=== PATIENT | female | born 1955 | race Caucasian/White ===

== ENCOUNTER → 2017-04-27 11:39 | Outpatient (CLI) | payer MEDICARE, MEDICAID, SELFPAY ==
--- NOTE | 2017-04-27 11:46 | US_ITS ---
STUDY: SUPERFICIAL ULTRASOUND - LEFT LATERAL ANKLE REASON FOR EXAM: Female, 61 years old. Palpable lump TECHNIQUE: A superficial ultrasound was performed with real-time and static purcell-scale imaging. COMPARISON: None. FINDINGS: No soft tissue abnormality was identified. US/Ext Non Vasc Limited/Soft Tiss IMPRESSION: Unremarkable study. Electronically Signed: Bin Daniels MD at 17:06 EST , Service support ,
== END ==
PROVIDERS: Family Provider Family Medicine; PCP Family Medicine; Visit Provider Podiatrist Foot & Ankle Surgery
DX: M67.472 Ganglion, left ankle and foot (principal); M86.8X6 Other osteomyelitis, lower leg
CPT/HCPCS: 76882

== ENCOUNTER → 2017-10-02 17:25 | Outpatient (CLI) | payer MEDICARE, MEDICAID, SELFPAY | PROVIDERS: Family Provider Otolaryngology; Visit Provider Otolaryngology | DX: J01.90 Acute sinusitis, unspecified (principal) | CPT/HCPCS: 87070; 87205 ==

== ENCOUNTER 2017-10-02 22:41 | Emergency (ER) | payer MEDICARE, MEDICAID, SELFPAY ==
[2017-10-02 22:43] VITALS: BP 135/73; PULSE 92; RESP 18; TEMP 36.8; O2SAT 99; BMI 28.8
--- NOTE | 2017-10-03 00:02 | ED.VISSUMM ---
- ER Visit Summary Date of Service: 10/03/17 Chief Complaint: Possible medication reaction History of Present Illness: The patient is a 61 F presenting due to concern for possible medication reaction. Patient reports that she has a underlying history diabetes high cholesterol essential tremor and anxiety. She also has a history of some recent issues with cough and sinus issues. Patient reports that she was seen by her ear nose and throat who called in a medication for her for bronchitis. Patient reports that she started on this this evening, and following administration of that she started to have a feeling of shaking and head pressure. Patient denies that she had any sort of shortness of breath cough tongue or lip swelling. She denies any rashes. Patient states that she is shaking, but has an underlying history of essential tremor. She reports that this is somewhat worse at this point. Review of systems otherwise negative. Physical Examination: Vital signs are within normal limits, patient is afebrile. General: Patient is well-nourished well-developed and in no acute distress. Head: Normocephalic, atraumatic Eyes: Pupils equal round and reactive bilaterally, extra occular motion intact bialterally ENT: Moist mucous membranes, no lip or tongue swelling Neck: Supple, no lymphadenopathy, no JVD, no meningismus CVS: Heart regular rate and rhythm, no murmurs, rubs or gallops, radial pulses 2+ bilaterally Resp: Respirations nondistressed, lung sounds clear bilaterally Abdomen: Soft, nontender, nondistended, no palpable masses, normal bowel sounds Back: Nontender Extremities: Nontender, atraumatic, active full range of motion, no peripheral edema Skin: warm, no rashes, no petechia Neuro: Alert and oriented x 4, CN 2-12 intact, no lateralizing neurological defecits, patient has no tremor at rest but when she attempts to do anything she has an intention tremor. Psyc: Patient is anxious Test Results: None indicated Emergency Department Course and Treatment: Patient presented due to concern for medication reaction. This does not seem consistent with medication reaction. Patient was reassured by this was recommended to continue her current medical treatment, and follow-up with primary care. Disposition: Discharge Impression: 1. Bronchitis This note was generated with [employer] software. It may contain incorrect words, spelling, and punctuation that were not noted in review of the chart prior to signing ED Disposition - Plan for ED Patient: Disposition: Home or Assisted Living Chief Complaint: Allergic Reaction Diagnosis: Bronchitis Instructions: Acute Bronchitis Referrals: Ashli Silva PA [Primary Care Provider] - 1 Week
[2017-10-03 00:21] VITALS: PULSE 78; RESP 16; O2SAT 98
== END 2017-10-03 00:22 | disposition home or self-care (01) ==
PROVIDERS: Emergency Provider Emergency Medicine; Family Provider Physician Assistant; PCP Physician Assistant
DX: J40 Bronchitis, not specified as acute or chronic (principal); E11.9 Type 2 diabetes mellitus without complications; E78.00 Pure hypercholesterolemia, unspecified; F41.9 Anxiety disorder, unspecified; J01.90 Acute sinusitis, unspecified
CPT/HCPCS: 87070; 87205; 99282

== ENCOUNTER 2017-10-24 09:42 | Emergency (ER) | payer MEDICARE, MEDICAID, SELFPAY ==
[2017-10-24 09:43] VITALS: BP 131/82; PULSE 87; RESP 16; TEMP 36.8; O2SAT 97; BMI 28.8
--- NOTE | 2017-10-24 10:07 | CT_ITS ---
STUDY: CT BRAIN WITHOUT CONTRAST REASON FOR EXAM: Female, 61 years old. Paresthesias of the left arm. RADIATION DOSAGE (If Supplied By Facility): CTDIvol = ( 44.99 ) mGy, DLP = ( 745.49 ) mGycm TECHNIQUE: Transaxial CT imaging of the brain was performed without administration of intravenous contrast material. Individualized dose optimization techniques were used for this CT. COMPARISON: None. FINDINGS: Normal soft tissue structures. Normal calvarium. Normal size ventricles and extra-axial spaces for the patient's age. Normal white matter tracts of the cerebral hemispheres. Normal basal ganglia and thalami. Normal brainstem. Normal cerebellum. There is no intracranial hemorrhage. There are no findings of an acute ischemic infarction. Atherosclerotic calcification of the vertebral arteries and cavernous portions of the internal carotid arteries bilaterally. Dense calcification of the cerebral falx. Partial opacification of the left sphenoid sinus. CT/Brain/Head without Contrast IMPRESSION: No acute abnormality is seen. Partial opacification of the left sphenoid sinus. Electronically Signed: Temo Dukes MD at 11:02 EDT Tel [phone], Service support ,
--- NOTE | 2017-10-24 10:08 | EKG12_ITS ---
Test Reason : HEADACHE Blood Pressure : / mmHG Vent. Rate : 082 BPM Atrial Rate : 082 BPM P-R Int : 156 ms QRS Dur : 100 ms QT Int : 392 ms P-R-T Axes : 027 -04 055 degrees QTc Int : 457 ms Normal sinus rhythm Incomplete right bundle branch block Confirmed by KATIA LANZA, FIONA ([id number]), newspaper editor managing DONNA HOSKINS ([id number]) on 10/25/2017 11:55:57 AM Referred By: BARBRA Confirmed By:FIONA MONTALVO MD
[2017-10-24 10:56] LABS: Absolute Lymphocyte Count 1.99 X10^3/ul (0.83-4.51); Absolute Neutrophil Count 3.6 X10^3/uL (2.0-7.7); Basophil# 0.03 X10^3/uL; Basophil% 0.5 % (0-1); Eosinophil# 0.24 X10^3/uL; Eosinophils% 3.7 % (0-5); Hematocrit 36.7 % (37-47); Hemoglobin 11.5 g/dl (12.0-15.0); Lymphocyte # 1.99 X10^3/ul (4.0); Lymphocyte % 30.9 % (19-41); Mean Corp Hgb Conc 31.3 g/gl (32-36); Mean Corpuscular Hgb 29.2 pg (27.0-32.0); Mean Corpuscular Volume 93.1 fL (81-99); Mean Platelet Vol. 10.6 fl (6.2-12.0); Monocyte# 0.53 X10^3/uL; Monocyte% 8.2 % (0-10); Neutrophil # 3.63 X10^3/uL (2.7-7.7); Neutrophil % 56.5 % (47-70); Platelet Count 197 K/mm3 (150-450); RBC Distribution Width CV 14.1 % (11.6-14.6); RBC Distribution Width SD 48.1 fl (35.1-43.9); Red Blood Count 3.94 M/mm3 (4.2-5.4); White Blood Count 6.4 K/mm3 (4.4-11.0)
[2017-10-24 10:57] LABS: POSITIVE COUNT NO; POSITIVE DIFFERENTIAL NO; POSITIVE MORPHOLOGY NO
[2017-10-24 11:05] LABS: Anion Gap 6 (5-15); BUN 13 mg/dL (7-18); BUN/Creat Ratio 10.7 RATIO (10-20); Calcium,Total 8.9 mg/dL (8.5-10.1); Chloride 106 mmol/L (98-107); Creatinine, Serum 1.21 mg/dL (0.55-1.02); EST Glomerular Filtration Rate 48 mL/min (>60); Est Glom Filt Rate - Afr Amer 58 mL/min (>60); Estimated Creatinine Clearance 39.37 ml/min; Glucose 150 mg/dL (74-106); Potassium 3.8 mmol/L (3.5-5.1); Sodium Level 141 mmol/L (136-145)
[2017-10-24] MEDS: 0.9% Normal Saline 1,000 ML 150 ML IV (11:35)
--- NOTE | 2017-10-24 12:26 | ED.VISSUMM ---
- ER Visit Summary Date of Service: 10/24/17 Chief Complaint: [Feeling weird] History of Present Illness: The patient is a 61 F [presents the emergency department with very vague complaints. Patient states that she did not feel well after using her inhaler last night prior to going to bed. Patient states that she has a little bit of a left-sided headache and some pressure in her left ear. Patient states that her left arm this morning when she woke up at 4 AM felt somewhat numb and weird. Patient is not sure if she is having an anxiety attack. Patient states that she gets nervous and then things start to feel weird. Patient has a history of asthma, diabetes, high cholesterol, fibromyalgia, and anxiety. Patient also gives history that she recently received a tablet from her family and she has been playing games on it. At times the tablet will make funny noises and lights will flash and she is not sure if she may have gotten electrocuted by it and that she typically uses her left hand to play on the tablet.] Physical Examination: [HEENT-PERRLA, EOMI. Cranial nerves II through XII grossly intact. TMs clear. Mucous membranes moist. No adenopathy. Cardiovascular-regular rate and rhythm without murmur or ectopy Lungs-clear to auscultation, chest wall stable without crepitus or subcu emphysema Abdomen-normoactive bowel sounds, soft, nontender, no rebound or rigidity, no peritoneal signs. Neuro tgle-yylreh-naas and heel marti testing within normal limits, negative Romberg, negative pronator drift, fundi benign. NIH stroke scale is a 0 Extremities-intact ?4, normal range of motion, normal pulses, atraumatic] Test Results: [EKG obtained on arrival shows a sinus rhythm with ventricular rate of 82 bpm. CBC with differential obtained was unremarkable. Chemistries unremarkable. CT scan of the brain showed nothing acute other than partial opacification of the left sphenoid sinus.] Emergency Department Course and Treatment: [Given the patient is driving I did not give her anything here for anxiety and she actually refused anything for anxiety here. Patient states that she will discuss further with nurse practitioner Jj Sivla.] Treatment Plan: [Patient to follow-up with her care physician]. Patient's paresthesias in the left arm are currently resolved. Disposition: [Discharged home in stable condition.] Impression: [Headache Paresthesias-resolved] This note was generated with [employer] dictation software. It may contain incorrect words, spelling, and punctuation that were not noted in review of the chart prior to signing ED Disposition - Plan for ED Patient: Chief Complaint: Headache Referrals: Ashli Silva PA [Primary Care Provider] -
--- NOTE | 2017-10-24 12:29 | ED.DEP ---
ED Disposition - Plan for ED Patient: Chief Complaint: Headache Instructions: ED Cephalgia Unspecified, ED Paraesthesias Referrals: Ashli Silva PA [Primary Care Provider] - 3-5 Days
[2017-10-24 12:35] VITALS: BP 129/56; PULSE 75; RESP 15; O2SAT 98
== END 2017-10-24 12:37 | disposition home or self-care (01) ==
LOC: ED 10:35
PROVIDERS: Emergency Provider Emergency Medicine; Family Provider Physician Assistant; PCP Physician Assistant
DX: R51 Headache (principal); R20.2 Paresthesia of skin; F41.9 Anxiety disorder, unspecified; E11.9 Type 2 diabetes mellitus without complications; E78.00 Pure hypercholesterolemia, unspecified; J45.909 Unspecified asthma, uncomplicated; M79.7 Fibromyalgia; Z72.0 Tobacco use
CPT/HCPCS: 70450; 80048; 84484; 85025; 93005; 99284; J7030; A4216

== ENCOUNTER → 2018-01-15 13:15 | Outpatient (CLI) | payer MEDICARE, SELFPAY ==
--- NOTE | 2018-01-15 13:18 | CT_ITS ---
STUDY: CT MAXILLOFACIAL SINUSES REASON FOR EXAM: Female, 62 years old. Sinusitis, right-sided sinus surgery 5+ years ago. RADIATION DOSAGE (If Supplied By Facility): CTDIvol = ( 33.45 ) mGy, DLP = ( 797.27 ) mGycm TECHNIQUE: The patient was scanned in a multi detector CT scanner. High resolution axial imaging was performed without the administration of intravenous contrast material. Sagittal and coronal images were reconstructed. Individualized dose optimization techniques were used for this CT. COMPARISON: CT sinus noncontrast 08/07/2013. FINDINGS: There is new near [place] opacification of the posterior left ethmoid and sphenoid sinuses with central hyperattenuation. There are no air-fluid levels. FRONTAL SINUSES: Normal aeration, without mucosal inflammatory disease. ETHMOIDAL SINUSES: Normal aeration, without mucosal inflammatory disease. MAXILLARY SINUSES: Small focal low-attenuation lateral left maxillary sinus 0.4 cm, new since previous examination, possibly a small retention cyst.. Status post right medial antrectomy. SPHENOIDAL SINUSES: Mild mucosal thickening of the right sphenoid sinus which is smaller compared to the left side.. There is patency of the bilateral maxillary infundibuli with normal uncinate processes, ethmoid bullae, and hiatus semilunaris. Small conchae bullosa right middle turbinate with paradoxical curvature of the bilateral middle turbinate. Normal bilateral inferior turbinates. Normal midline nasal septum. There is patency of the bilateral nasal airways. The visualized osseous structures are normal. The visualized bilateral orbital contents are normal. Prominence of tissue along the tongue base left greater than right. There are degenerative changes of the upper cervical spine. The mandible and bilateral temporomandibular joints are intact. The bilateral mastoid air cells are clear. Pneumatization of the right petrous apex without change. Minimal hyperostosis frontal interna without change. CT/Sinus/Facial Bone IMPRESSION: 1. New near upon opacification posterior left ethmoid and left sphenoid sinus with central hyperattenuation likely chronic disease without air-fluid levels. No osseous destruction. 2. Suspect 3. Small left maxillary sinus pseudocyst. 4. Status post right medial antrectomy. 5. Fullness of the tongue base possible lymphoid hyperplasia. Direct visual correlation recommended. Electronically Signed: Nisha Reynaga MD at 3:03 EDT , Service support ,
== END ==
PROVIDERS: Family Provider Physician Assistant; PCP Physician Assistant; Referring Provider Otolaryngology; Visit Provider Otolaryngology
DX: J32.9 Chronic sinusitis, unspecified (principal)
CPT/HCPCS: 70486

== ENCOUNTER → 2018-01-18 10:30 | Outpatient (CLI) | payer MEDICARE, SELFPAY | PROVIDERS: Family Provider Physician Assistant; PCP Physician Assistant; Referring Provider Otolaryngology; Visit Provider Otolaryngology | DX: J32.9 Chronic sinusitis, unspecified (principal) | CPT/HCPCS: 87070; 87205 ==

== ENCOUNTER 2018-02-11 07:11 | Day surgery (SDC) | payer MEDICARE, SELFPAY ==
--- NOTE | 2018-02-05 12:20 | EKG12_ITS ---
Test Reason : PREOP Blood Pressure : / mmHG Vent. Rate : 066 BPM Atrial Rate : 066 BPM P-R Int : 154 ms QRS Dur : 094 ms QT Int : 406 ms P-R-T Axes : 037 022 064 degrees QTc Int : 425 ms Normal sinus rhythm Low voltage QRS Possible Lateral infarct , age undetermined Abnormal ECG Confirmed by KELVIN LANZA, ALFREDO ([id number]), newspaper or periodical editor DONNA HOSKINS ([id number]) on 02/08/2018 2:38:23 PM Referred By: Carlitos Wood Confirmed By:ALFREDO WARREN MD
[2018-02-05 12:36] LABS: Hematocrit 39.5 % (37-47); Hemoglobin 12.6 g/dl (12.0-15.0); Mean Corp Hgb Conc 31.9 g/gl (32-36); Mean Corpuscular Hgb 30.1 pg (27.0-32.0); Mean Corpuscular Volume 94.3 fL (81-99); Mean Platelet Vol. 11.4 fl (6.2-12.0); Platelet Count 212 K/mm3 (150-450); RBC Distribution Width CV 13.9 % (11.6-14.6); RBC Distribution Width SD 46.2 fl (35.1-43.9); Red Blood Count 4.19 M/mm3 (4.2-5.4); White Blood Count 8.7 K/mm3 (4.4-11.0)
[2018-02-05 12:43] LABS: Prothrombin Time (Protime)PT. 13.2 SECONDS (11.7-14.9)
[2018-02-05 12:44] LABS: Partial Thromboplast Time 32.1 Seconds (24.1-36.2); Scan Indicated on CBC? Y/N NO
[2018-02-05 13:09] LABS: AST(SGOT) 16 U/L (15-37); Alanine Aminotransfer ALT/SGPT 22 U/L (13-56); Albumin, Serum 3.7 g/dL (3.2-5.0); Alkaline Phosphatase 66 U/L (45-117); Anion Gap 8 (5-15); BUN 18 mg/dL (7-18); BUN/Creat Ratio 14.9 RATIO (10-20); Bilirubin, Direct 0.09 mg/dL (0.00-0.30); Chloride 107 mmol/L (98-107); Creatinine, Serum 1.21 mg/dL (0.55-1.02); EST Glomerular Filtration Rate 48 mL/min (>60); Est Glom Filt Rate - Afr Amer 58 mL/min (>60); Glucose 89 mg/dL (74-106); Potassium 4.3 mmol/L (3.5-5.1); Protein, Total 7.7 g/dL (6.4-8.2); Sodium Level 143 mmol/L (136-145)
[2018-02-05 13:15] LABS: Hemoglobin A1c 5.9 % (4.2-6.3)
[2018-02-11] VITALS (8 sets, daily range): BP systolic 110–155; BP diastolic 73–84; PULSE 71–78; RESP 16–18; TEMP 36.5–36.9; O2SAT 92–100; BMI 26.6
--- NOTE | 2018-02-11 | ETH_PTH ---
PATIENT: COLE MERCADO LOC: [facility] [place] U#:[id number] AGE/SX: 62/F ROOM: RE02/11/[address]: Dr. Carlitos Wood MD : [id number] BED: DIS: 02/11/2018 SPEC #: [id number] RECD: 02/11/18 13:47 STATUS: CHRISTINE REQ #: [id number] COLIN: 02/11/18 00:[address]: Carlitos Wood DEPT: SURGICAL PATHOLOGY RECD BY: Ian Bell ENTERED: 02/11/18 13:47 SP TYPE: ETH TISS OTHR DR: EDGARDO Chawla Tissues: Ethmoid sinus, NOS Procedures: Decalcification bone/plaque Special Stain Group I Surgery Specimen Level IV GMS Stain (control) HEADER OPERATION: Endoscopic intranasal ethmoid, max, antrostomy, sphenoidectomy PRE-OP DIAGNOSIS: Chronic sinusitis TISSUE SUBMITTED: Left sinus contents MICROSCOPIC DIAGNOSIS Left sinus contents: Fragments of respiratory mucosa with chronic inflammation and bone. Special stain for fungi is negative for organisms; matched control is appropriate. See comment. ARMINDA:sandy 02/15/18 COMMENT Inflammatory cell infiltrates also consists of numerous eosinophils. MICROSCOPIC DESCRIPTION Slides are reviewed. GROSS DESCRIPTION Received in fixative is one container labeled with the patient's name and designated left sinus contents. The specimen consists of multiple fragments of pink hemorrhagic soft tissue mixed with fragments of bone that in aggregate measure 3 x 2.5 x 0.3 cm. The entire specimen is submitted in one cassette after decalcification. / ARMINDA:sandy 02/11/18 TC:3 CPT: 32664, 38396, 81158
[2018-02-11] MEDS: Oxymetazoline 0.05% 1 SPRAY SPRAY.BTL 3 SPRAY NASAL (07:47)
[2018-02-11 07:56] LABS: Bedside Glucose 113 mg/dL (70-110)
[2018-02-11] MEDS: Oxymetazoline 0.05% 1 SPRAY SPRAY.BTL 15 SPRAY (08:48)
--- NOTE | 2018-02-11 09:14 | DCINST_ITS ---
You will use the following diet at home:: Regular Your food should be the consistency of: Regular Discharge Activity: Return to Normal Activity, - - No nose blowing until seen by MD Additional Dressing/Incision Instructions:: Start irrigation on 02/12/18. Irrigate 4x/day with saline. Allergies/Adverse Reactions: Allergies moxifloxacin HCl [From Avelox] Allergy (Verified 02/04/18 15:23) Other Penicillins Allergy (Verified 02/04/18 15:23) Nausea doxycycline Adverse Reaction (Verified 02/04/18 15:23) Nausea prednisone Adverse Reaction (Verified 02/04/18 15:23) Other MAKES ME FEEL WIERD AND i NEVER SHUT UP Medications to take at Discharge RX: Cholecalciferol (Vitamin D3) [Vitamin D3] 1,000 unit PO DAILY 07/31/13 RX: Metformin HCl [Glucophage] 850 mg PO BIDCM 07/31/13 RX: Paroxetine HCl [Paxil] 30 mg PO QHS 07/31/13 RX: Pravastatin [Pravachol] 20 mg PO QHS 07/31/13 Orders to be completed after discharge: 12 Lead EKG [CVS] Time Frame: 02/05/18, Location: None Selected Primary Care Physician: Ashli Silva PA [Primary Care Provider] - Test Results: Test results from this visit will be discussed in further detail at your follow- up appointment, if applicable.
--- NOTE | 2018-02-11 10:30 | OP.PCM_ITS ---
Report of Operation Date of Procedure: 02/11/18 Pre-Operative Diagnosis: left chronic sinusitis Post-Operative Diagnosis: same Surgery/Procedure Performed:: left total ethmoidectomy; left sphenoidectomy; left maxillary antrostomy; use of navigation Description of Surgical Findings:: thick inspissated mucous in the sphenoid and posterior ethmoid Type of Anesthesia:: General Anesthesiologist: Gaudencio Quiroga Specimen's removed: sinus contents Estimated Blood Loss (mL): minimal Description of Procedure: The patient was taken to the OR on 02/11/18. She was placed in the supine position on the OR table. She was given sufficient general endotracheal anesthesia. The head of bed was elevated 30 degrees. The navigation system was applied and registered per protocol and checked for anatomic correctness. A zero degree rigid nasal endoscope was used throughout the entire procedure. 1% lidocaine with epinephrine was injected into the middle turbinate, superior turbinate, uncinate, and ethmoid bulla. After sufficient vasoconstriction, the middle turbinate was medialized with a freer elevator. A ball tipped sinus seeker was inserted into the left maxillary sinus. A back biter was used to create a maxillary antrostomy. The uncinate was taken down using a microdebrider. The ethmoid bulla was opened with a curette. Anterior and posterior ethmoidectomy was carried out using a [place]-Wile forcep and sinus shaver. I then used navigation to verify the front face of the sphenoid. I popped through the front face of the sphenoid with the suction/navigation. I then opened the front face of the sphenoid with a sinus shaver medially. Thick inspissated secretions were removed with suction and [place]-Wile forceps. Inflamed mucosa was removed with forceps as well. Hemostasis was achieved with afrin pledgets. Next, I used some suction cautery for some bleeding in the ethmoid cavity. Meliton was applied to some mucosal oozing which controlled the bleeding quite well. Once hemostasis was achieved the procedure was terminated. She was awoken and brought to the recovery room in stable condition. Blood loss minimal, replacement none. Sponge needle and instrument count were correct at the end of the procedure.
[2018-02-11 11:30] LABS: Bedside Glucose 149 mg/dL (70-110)
== END 2018-02-11 12:30 | disposition home or self-care (01) ==
LOC: SDC 07:11 → AC 07:12
PROVIDERS: Anesthesiology; Family Provider Physician Assistant; PCP Physician Assistant; Referring Provider Otolaryngology; Visit Provider Otolaryngology
PROC: (CPT 31256; principal; 2018-02-11 08:35)
DX: J32.9 Chronic sinusitis, unspecified (principal); F32.9 Major depressive disorder, single episode, unspecified; F41.9 Anxiety disorder, unspecified; E78.00 Pure hypercholesterolemia, unspecified; F17.200 Nicotine dependence, unspecified, uncomplicated; R94.31 Abnormal electrocardiogram [ECG] [EKG]; E11.9 Type 2 diabetes mellitus without complications; R23.3 Spontaneous ecchymoses
CPT/HCPCS: 31256; 31259; 36415; 80048; 80076; 82962; 83036; 85027; 85610; 85730; 88305; 88311; 88312; 93005; J7120; J2405

== ENCOUNTER 2018-03-12 16:10 | Emergency (ER) | payer MEDICARE, SELFPAY ==
[2018-02-11 07:41] VITALS: BMI 26.6
[2018-03-12 16:12] VITALS: BP 117/68; PULSE 79; RESP 16; TEMP 36.6; O2SAT 96; BMI 30.3
--- NOTE | 2018-03-12 17:07 | EKG12_ITS ---
Test Reason : ANXIETY Blood Pressure : / mmHG Vent. Rate : 069 BPM Atrial Rate : 069 BPM P-R Int : 152 ms QRS Dur : 092 ms QT Int : 412 ms P-R-T Axes : 038 024 063 degrees QTc Int : 441 ms Normal sinus rhythm Normal ECG Confirmed by ALFREDO WARREN MD ([id number]), business editor DONNA HOSKINS ([id number]) on 03/15/2018 1:43:17 PM Referred By: SHAHNAZ Confirmed By:ALFREDO WARREN MD
[2018-03-12] MEDS: LORazepam 2 MG/ML Syringe 1 MG IV (17:32)
[2018-03-12 17:50] LABS: Absolute Lymphocyte Count 2.21 X10^3/ul (0.83-4.51); Absolute Neutrophil Count 4.4 X10^3/uL (2.0-7.7); Basophil# 0.05 X10^3/uL; Basophil% 0.7 % (0-1); Eosinophil# 0.32 X10^3/uL; Eosinophils% 4.2 % (0-5); Hematocrit 36.3 % (37-47); Hemoglobin 11.5 g/dl (12.0-15.0); Lymphocyte # 2.21 X10^3/ul (4.0); Lymphocyte % 29.3 % (19-41); Mean Corp Hgb Conc 31.7 g/gl (32-36); Mean Corpuscular Hgb 29.2 pg (27.0-32.0); Mean Corpuscular Volume 92.1 fL (81-99); Mean Platelet Vol. 11.1 fl (6.2-12.0); Monocyte# 0.53 X10^3/uL; Neutrophil # 4.41 X10^3/uL (2.7-7.7); Neutrophil % 58.7 % (47-70); POSITIVE COUNT NO; POSITIVE DIFFERENTIAL NO; POSITIVE MORPHOLOGY NO; Platelet Count 217 K/mm3 (150-450); RBC Distribution Width CV 13.9 % (11.6-14.6); RBC Distribution Width SD 46.6 fl (35.1-43.9); Red Blood Count 3.94 M/mm3 (4.2-5.4); White Blood Count 7.5 K/mm3 (4.4-11.0)
[2018-03-12 18:02] LABS: Anion Gap 9 (5-15); BUN 17 mg/dL (7-18); Calcium,Total 8.6 mg/dL (8.5-10.1); Chloride 109 mmol/L (98-107); Creatinine, Serum 1.21 mg/dL (0.55-1.02); EST Glomerular Filtration Rate 48 mL/min (>60); Est Glom Filt Rate - Afr Amer 58 mL/min (>60); Estimated Creatinine Clearance 33.74 ml/min; Glucose 184 mg/dL (74-106); Potassium 3.9 mmol/L (3.5-5.1); Sodium Level 141 mmol/L (136-145)
--- NOTE | 2018-03-12 19:02 | ED.DCSUM_ITS ---
- ER Visit Summary Date of Service: 03/12/18 Chief Complaint: Anxiety reaction History of Present Illness: The patient is a 62 F presents to the emergency department anxiety. Patient has long-standing history of anxiety. She was on Xanax intermittently for the past 20 years. She states she is never abused it. She has not taken any in over 6 months. She states that she has been increasingly anxious lately. Her physician prescribed her BuSpar. She states she took it twice and felt like it made her feel worse. She describes dizziness, nausea, and lightheadedness. She states it feels like her normal panic attacks but was worsened. She is never taken the medication before. She is not suicidal. She denies any delusions or hallucinations. Physical Examination: Vital signs reviewed General: Well-nourished, well-developed Head: Normocephalic, atraumatic Eyes: Pupils equal and reactive, extraocular muscles intact Neck, supple, no lymphadenopathy Heart: Regular rate and rhythm Respiratory: No distress, clear bilaterally Abdomen: Soft, nontender, nondistended, no peritoneal signs Back: Nontender Extremities: Nontender, no edema, no cords Skin: Normal color no rash Neuro: Alert and oriented, no focal or lateralizing deficits Test Results: [] Emergency Department Course and Treatment: Patient does seem like she is having medication side effect read EKG was obtained which shows sinus rhythm without ac rios ischemia. Patient was kept on a monitor. Screening labs were obtained which are unremarkable. She was given fluids and IV Ativan. On reevaluation she is resting comfortably. At this time, I do feel this is likely secondary to her anxiety and her medication. She will be given a short course of Ativan until she can reestablish with her physician to determine plan of care. She will be discharged home. Treatment Plan: [] Disposition: Discharge Impression: Acute anxiety reaction This note was generated with [employer] dictation software. It may contain incorrect words, spelling, and punctuation that were not noted in review of the chart prior to signing ED Disposition - Plan for ED Patient: Chief Complaint: Anxiety Instructions: ED Panic Attack Prescriptions: Lorazepam [Ativan] 0.5 mg PO TID #10 tab Referrals: Too Jain MD [Primary Care Provider] -
[2018-03-12 19:20] VITALS: BP 109/63; PULSE 68; RESP 16; O2SAT 98
--- OUTSIDE RECORDS SUMMARY | 2018-06-14 05:47 | XMS RPT_ITS ---
:1955 Author Organization OHIP Support Name Relationship Address Phone D Unavailable Unavailable Unavailable BRENNAN RIBEIROIMIE Unavailable [address] + [place] [address] GEMA TITUS Unavailable [address] + [place] [address] D Unavailable Unavailable Unavailable BRENNAN RIBEIROIMIE Unavailable [address] + [place] [address] GEMA TITUS Unavailable [address] + [place] [address] D Unavailable Unavailable Unavailable BRENNAN RIBEIROIMIE Unavailable [address] + [place] [address] GEMA TITUS Unavailable [address] + [place] [address] D Unavailable Unavailable Unavailable GEMA SANDRA Unavailable [address] + [place] [address] GEMA TITUS Unavailable [address] + [place] [address] D Unavailable Unavailable Unavailable BRENNAN RIBEIROIMIE Unavailable [address] + [place] [address] GEMA TITUS Unavailable [address] + [place] [address] D Unavailable Unavailable Unavailable GEMA SANDRA Unavailable [address] + [place] [address] GEMA TITUS Unavailable [address] + [place] [address] D Unavailable Unavailable Unavailable GEMA SANDRA Unavailable [address] + [place] [address] GEMA TITUS Unavailable [address] + [place] [address] D Unavailable Unavailable Unavailable SANDRA RIBEIRO Unavailable [address] + [place] [address] TITUS RIBEIRO Unavailable [address] + [place] [address] D Unavailable Unavailable Unavailable BRENNAN RIBEIROIMIE Unavailable [address] + [place] [address] TITUS RIBEIRO Unavailable [address] + [place] [address] Care Team Providers Name Role Phone TOO AMIN Attending Unavailable TESTRAKE, JACKELINE Attending Unavailable TESTRAKE, JACKELINE Referring Unavailable TESTRAKE, JACKELINE Referring Unavailable SILVAAshli (PA-C) Attending Unavailable TESTRAKE, JACKELINE Attending Unavailable TESTRAKE, JACKELINE Referring Unavailable TESTRAKE, JACKELINE Referring Unavailable TESTRAKE, JACKELINE Referring Unavailable BRENNAN, TOO Ulloa Referring Unavailable BRENNAN, TOO Ulola Referring Unavailable BRENNAN, TOO Ulloa Attending Unavailable TESTRAKE, JACKELINE Referring Unavailable BRENNAN, TOO Ulloa Attending Unavailable SILVAAshli MORALES (PA-C) Attending Unavailable SILVA, Ashli ATKINS (PA-C) Referring Unavailable SILVAAshli (PA-C) Attending Unavailable TESTRAKE, JACKELINE Referring Unavailable SILVAAshli (PA-C) Attending Unavailable SILVAAshli (PA-C) Referring Unavailable TESTRAKE, JACKELINE Attending Unavailable ANTONELLA GRAY (PT) Attending Unavailable SILVAAshli (PA-C) Referring Unavailable BRENNANTOO Referring Unavailable BRENNAN, TOO Ulloa Referring Unavailable TESTRAKE, JACKELINE Attending Unavailable TESTRAKE, JACKELINE Referring Unavailable TESTRAKE, JACKELINE Referring Unavailable TESTRAKE, JACKELINE Referring Unavailable TESTRAKE, JACKELINE Attending Unavailable TESTRAKE, JACKELINE Referring Unavailable TESTRAKE, JACKELINE Referring Unavailable TESTRAKE, JACKELINE Attending Unavailable TESTRAKE, JACKELINE Referring Unavailable TESTRAKE, JACKELINE Attending Unavailable TESTRAKE, JACKELINE Referring Unavailable BRENNAN, TOO Ulloa Attending Unavailable SILVAAshli (PA-C) Referring Unavailable TESTRAKE, JACKELINE Attending Unavailable TESTRAKE, JACKELINE Referring Unavailable TESTRAKE, JACKELINE Referring Unavailable TOO AMIN Referring Unavailable TOO AMIN Referring Unavailable Ashli Silva Primary Care Unavailable Brandi Mercer Attending Unavailable Testisrael, Jackeline Attending Unavailable Testrake, Jackeline Referring Unavailable Rodrigo Danielle Primary Care Unavailable Test, Tam Consulting Unavailable Israel, Carlitos Attending Unavailable Israel, Carlitos Primary Care Unavailable Brandi Whaley Attending Unavailable Ashli Silva Primary Care Unavailable Ashli Silva Primary Care Unavailable Ungur Remus Attending Unavailable Israel, Carlitos Attending Unavailable Israel, Carlitos Referring Unavailable Silva, M Carlitos Primary Care Unavailable Israel, Carlitos Attending Unavailable Israel, Carlitos Referring Unavailable Ricardo M Carlitos Primary Care Unavailable Israel, Carlitos Attending Unavailable Israel, Carlitos Referring Unavailable Ricardo M Carlitos Primary Care Unavailable Vickie, Howells Attending Unavailable Israel, Carlitos Referring Unavailable PROBLEMS PROBLEMS DATE TYPE CONDITION / CODE ATTENDING STATUS SOURCE 03/12/2018 Unknown F41.9 - Anxiety Sylvie, Active [place] disorder, unspecified [facility] / F41.9(ICD-10) Hospital Repository 02/13/2018 Unknown R94.31 - Abnormal Vickie, Trino Active [place] electrocardiogram Community [ECG] [EKG] / Hospital R94.31(ICD-10) Repository 01/09/2018 Active Pain in left ankle and NA Active [facility] of left foot / [facility] M25.572(ICD-10) [place] Repository 01/09/2018 Active Other chronic pain / NA Active [facility] G89.29(ICD-10) [facility] [place] Repository 01/09/2018 Active Pain in right ankle NA Active [facility] and joints of right [facility] foot / M25.571(ICD-10) [place] Repository 12/11/2017 Active Other microscopic NA Active [facility] hematuria / [facility] R31.29(ICD-10) [place] Repository 12/10/2017 Active [place] / NA Active [facility] R23.2(ICD-10) [facility] [place] Repository 12/07/2017 Active Other injury of NA Active [facility] unspecified body [facility] region, initial [place] encounter / Repository T14.8XXA(ICD-10) 12/07/2017 Active Weakness / NA Active [facility] R53.1(ICD-10) [facility] [place] Repository 12/07/2017 Active Cough / R05(ICD-10) NA Active [facility] [place] Repository 12/07/2017 Active Unknown / UNK(Unknown) TOO AMIN Active [facility] J [facility] [place] Repository 11/23/2017 Active Dizziness and NA Active [facility] giddiness / [facility] R42(ICD-10) [place] Repository 09/25/2017 Active Other osteomyelitis, NA Active [place] lower leg / [facility] M86.8X6(ICD-10) [place] Repository 03/02/2015 Active Type 2 diabetes NA Active [facility] mellitus with other [facility] diabetic neurological [place] complication / Repository E11.49(ICD-10) 10/10/2017 Active Cellulitis of NA Active [place] unspecified part of [facility] limb / L03.119(ICD-10) [place] Repository 10/10/2017 Active Other general symptoms NA Active [place] and signs / [facility] R68.89(ICD-10) [place] Repository 09/05/2017 Active 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 [place] (current) drug therapy [facility] / Z79.899(ICD-10) [place] Repository 08/22/2017 Active Other instability, NA Active [facility] left ankle / [facility] M25.372(ICD-10) [place] Repository 08/22/2017 Active Other instability, NA Active [facility] right ankle / [facility] M25.371(ICD-10) [place] Repository 06/19/2017 Active Hallux valgus NA Active [place] (acquired), [facility] unspecified foot / [place] M20.10(ICD-10) Repository 04/27/2017 Unknown M67.472 - Ganglion, Testrake, Active [place] left ankle and foot / [facility] M67.472(ICD-10) Hospital Repository 04/27/2017 Unknown M86.8X6 - Other Testrake, Active [place] osteomyelitis, lower [facility] Community leg / M86.8X6(ICD-10) Hospital Repository 10/07/2012 Active Vitamin D deficiency, NA Active [facility] unspecified / [facility] E55.9(ICD-10) [place] Repository 04/20/2017 Active Other specified NA Active [place] postprocedural states [facility] / Z98.890(ICD-10) [place] Repository 04/20/2017 Active Type 2 diabetes NA Active [place] mellitus with diabetic [facility] autonomic [place] (poly)neuropathy / Repository E11.43(ICD-10) PROCEDURES PROCEDURES No Procedure Records FoundRESULTS RESULTS PROGRESS Observed: 04/01/2018 Status: COMPLETED Source: [place] 2:[address] [facility] REPOSITORY HNO ID: [id number] Author: Ashli Atkins (Emma) Ricardo Service: (none) Author Type: Physician Caretaker Grounds Type: Progress Notes Filed: 04/01/2018 6:50 PM Note Text: 62 year old female with c/o dizzy, shaky, sleepy. Thinks r/t to gabapentin. Missed a dose she thinks on Sunday. Resumed Sunday at noon. Since then feeling this way. Got worse with anxiety over hol. A friend moved in with her, has had a couple strokes and seizures. Feels it has made it very difficult. Dizziness describes as intermittent, head spinny but not sense of motion. Lightheaded. Gabapentin Worked really well for 2 weeks. Controlled anxiety and stopped tremor. Was feeling really well. When she missed waited til next day to restart but started earlier in the day. Adjusted each day since by a few hours earlier. Feels Xanax helped anxiety and didn't have problems. Dr. Amin's notes reviewed from 03/11/18 and ED notes. HISTORIES FAMILY HISTORY Problem Relation Age of Onset - Adopted: Yes - Diabetes Father - Diabetes Maternal Grandmother - Heart Father - Hypertension Father - Lipids Father - None Sister - Diabetes Daughter - Cancer Sister thyroid. PAST MEDICAL HISTORY Diagnosis Date - Adjustment disorder with depressed mood - Kidney stones - Mixed hyperlipidemia Hyperlipidemia - Other and unspecified hyperlipidemia in the past - Type II or unspecified type diabetes mellitus without mention of complication, not stated as uncontrolled PAST SURGICAL HISTORY Procedure Laterality Date - APPENDECTOMY - ESWL kidney stones - PAST SURGICAL HISTORY OF tubal preg - PAST SURGICAL HISTORY OF remote left leg/ ankle with plates and screws - PAST SURGICAL HISTORY OF 11/29/2011 Bunion Removed - REMOVAL GALLBLADDER - REMOVAL OF OVARY(S) bilaterally with hysterectomy - SINUS SURGERY HX 02/11/2018 - TOTAL ABD HYSTERECTOMY+BLAD REPR Social History Marital status: Spouse name: Years of education: 13 Number of children: 1 Occupational History 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 Has taken care of grandson. 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 Disp: 30 capsule Rfl: 0 menthol (BIOFREEZE, MENTHOL,) 4 % gel Apply 1 application to affected area twice daily as needed. Disp: 1 Tube Rfl: 2 PARoxetine (PAXIL) 40 mg tablet Take 1 tablet by mouth once daily. Disp: 30 tablet Rfl: 2 metFORMIN (GLUCOPHAGE) 850 mg tablet take 1 tablet by mouth twice a day with meals Disp: 60 tablet Rfl: 11 pravastatin (PRAVACHOL) 20 mg tablet take 1 tablet by mouth once daily at bedtime Disp: 90 tablet Rfl: 3 ibuprofen (MOTRIN) 600 mg tablet Take 1 tablet by mouth every 8 hours as needed. Disp: 90 tablet Rfl: 1 albuterol HFA (VENTOLIN HFA) 90 mcg/actuation inhaler Inhale 2 Puffs as instructed every 4 hours as needed for Wheezing/Shortness of Breath. Disp: 1 Inhaler Rfl: 5 Cholecalciferol, Vitamin D3, 5,000 unit cap Take 1 capsule by mouth once daily. Disp: 90 capsule Rfl: 3 busPIRone (BUSPAR) 5 mg tablet Take 1 tablet by mouth twice daily. (Patient not taking: Reported on 04/01/2018 ) Disp: 60 tablet Rfl: 5 COMPOUNDED PRESCRIPTION Powerstep Original Full Length` Disp: 1 Each Rfl: 0 blood sugar diagnostic (BLOOD GLUCOSE TEST) test strip Test twice daily Disp: 50 Strip Rfl: 6 COMPOUNDED PRESCRIPTION powerstep orthoticsDx: posterior tibial tendon dysfunction flatfoot Disp: 1 Device Rfl: 0 blood sugar diagnostic (ACCU-CHEK JIMMIE) test strip Use for blood sugar testing once daily and as needed, 250.00 Disp: 50 Each Rfl: 12 Lancets (ACCU-CHEK MULTICLIX LANCET) [facility] [place] blood sugar once daily. Disp: 30 Each Rfl: 6 No current facility-administered medications for this visit. DTAP,TDAP,TD(1 - Tdap) due on 1972 LUNG CANCER SCREENING due on 2008 MAMMOGRAM due on 07/15/2015 FECAL OCCULT BLOOD due on 03/02/2016 EXAM: BP 110/68 Pulse 84 Temp 37.2 ?C (98.9 ?F) (Tympanic) Resp 16 Wt 72.1 kg (159 lb) BMI 27.72 kg/m? Pleasant adult woman in no acute distress. Alert and oriented all spheres. Normal affect and cognition. Speech normal. No deficits to learning or comprehension. Skin warm, dry, pink to lips and nailbeds. Normal turgor. Respirations regular and unlabored. HEENT WNL. TM's clear. Nose and oropharynx free from injection or lesion. No cervical lymph nodes. Thyroid non-tender, no masses Chest CTA. HRRR without murmur or gallop. Extrem: no clubbing, cyanosis, edema. Extremities are warm and pink with prompt capillary refill. Intention tremor boith hands. Romberg. Negative. No pass pointing finger-nose. ASSESSMENT/PLAN: 1. Chronic anxiety - ICD9: 300.00, ICD10: F41.9 (primary diagnosis) Patient has self adjusted dosing with gabapentin. Recommend continue dose only at bedtime x 3-4 days. Phone or mychart with progress as often as needed. Was doing very well. Think anxiety was triggered by interruption of medication and holiday stress. 2. Essential tremor - ICD9: 333.1, ICD10: G25.0 Persistent but improved on gabapentin. EMMA Chawla Observed: 04/01/2018 Status: COMPLETED Source: [place] 2:00 PM [facility] REPOSITORY [facility] YAMILEX MERCADO ([id number]) 1955 F Date Time Provider Department 04/01/18 2:00 PM Ashli SILVA) [facility] During your visit today, we recorded the following information about you: Temperature Pulse Respiration Blood pressure 98.9 degrees 84/minute 16/minute 110/68 Weight 72.1 kg M Carlitos Silva PA-C 04/01/2018 6:50 PM Signed 62 year old female with c/o dizzy, shaky, sleepy. Thinks r/t to gabapentin. Missed a dose she thinks on Sunday. Resumed Sunday at noon. Since then feeling this way. Got worse with anxiety over hol. A friend moved in with her, has had a couple strokes and seizures. Feels it has made it very difficult. Dizziness describes as intermittent, head spinny but not sense of motion. Lightheaded. Gabapentin Worked really well for 2 weeks. Controlled anxiety and stopped tremor. Was feeling really well. When she missed waited til next day to restart but started earlier in the day. Adjusted each day since by a few hours earlier. Feels Xanax helped anxiety and didn't have problems. Dr. Amin's notes reviewed from 03/11/18 and ED notes. HISTORIES FAMILY HISTORY Problem Relation Age of Onset - Adopted: Yes - Diabetes Father - Diabetes Maternal Grandmother - Heart Father - Hypertension Father - Lipids Father - None Sister - Diabetes Daughter - Cancer Sister thyroid. PAST MEDICAL HISTORY Diagnosis Date - Adjustment disorder with depressed mood - Kidney stones - Mixed hyperlipidemia Hyperlipidemia - Other and unspecified hyperlipidemia in the past - Type II or unspecified type diabetes mellitus without mention of complication, not stated as uncontrolled PAST SURGICAL HISTORY Procedure Laterality Date - APPENDECTOMY - ESWL kidney stones - PAST SURGICAL HISTORY OF tubal preg - PAST SURGICAL HISTORY OF remote left leg/ ankle with plates and screws - PAST SURGICAL HISTORY OF 11/29/2011 Bunion Removed - REMOVAL GALLBLADDER - REMOVAL OF OVARY(S) bilaterally with hysterectomy - SINUS SURGERY HX 02/11/2018 - TOTAL ABD HYSTERECTOMY+BLAD REPR Social History Marital status: Spouse name: Years of education: 13 Number of children: 1 Occupational History 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 Has taken care of grandson. 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 Disp: 30 capsule Rfl: 0 menthol (BIOFREEZE, MENTHOL,) 4 % gel Apply 1 application to affected area twice daily as needed. Disp: 1 Tube Rfl: 2 PARoxetine (PAXIL) 40 mg tablet Take 1 tablet by mouth once daily. Disp: 30 tablet Rfl: 2 metFORMIN (GLUCOPHAGE) 850 mg tablet take 1 tablet by mouth twice a day with meals Disp: 60 tablet Rfl: 11 pravastatin (PRAVACHOL) 20 mg tablet take 1 tablet by mouth once daily at bedtime Disp: 90 tablet Rfl: 3 ibuprofen (MOTRIN) 600 mg tablet Take 1 tablet by mouth every 8 hours as needed. Disp: 90 tablet Rfl: 1 albuterol HFA (VENTOLIN HFA) 90 mcg/actuation inhaler Inhale 2 Puffs as instructed every 4 hours as needed for Wheezing/Shortness of Breath. Disp: 1 Inhaler Rfl: 5 Cholecalciferol, Vitamin D3, 5,000 unit cap Take 1 capsule by mouth once daily. Disp: 90 capsule Rfl: 3 busPIRone (BUSPAR) 5 mg tablet Take 1 tablet by mouth twice daily. (Patient not taking: Reported on 04/01/2018 ) Disp: 60 tablet Rfl: 5 COMPOUNDED PRESCRIPTION Powerstep Original Full Length` Disp: 1 Each Rfl: 0 blood sugar diagnostic (BLOOD GLUCOSE TEST) test strip Test twice daily Disp: 50 Strip Rfl: 6 COMPOUNDED PRESCRIPTION powerstep orthoticsDx: posterior tibial tendon dysfunction flatfoot Disp: 1 Device Rfl: 0 blood sugar diagnostic (ACCU-CHEK JIMMIE) test strip Use for blood sugar testing once daily and as needed, 250.00 Disp: 50 Each Rfl: 12 Lancets (ACCU-CHEK MULTICLIX LANCET) [facility] [place] Test blood sugar once daily. Disp: 30 Each Rfl: 6 No current facility-administered medications for this visit. DTAP,TDAP,TD(1 - Tdap) due on 1972 LUNG CANCER SCREENING due on 2008 MAMMOGRAM due on 07/15/2015 FECAL OCCULT BLOOD due on 03/02/2016 EXAM: BP 110/68 Pulse 84 Temp 37.2 ?C (98.9 ?F) (Tympanic) Resp 16 Wt 72.1 kg (159 lb) BMI 27.72 kg/m? Pleasant adult woman in no acute distress. Alert and oriented all spheres. Normal affect and cognition. Speech normal. No deficits to learning or comprehension. Skin warm, dry, pink to lips and nailbeds. Normal turgor. Respirations regular and unlabored. HEENT WNL. TM's clear. Nose and oropharynx free from injection or lesion. No cervical lymph nodes. Thyroid non-tender, no masses Chest CTA. HRRR without murmur or gallop. Extrem: no clubbing, cyanosis, edema. Extremities are warm and pink with prompt capillary refill. Intention tremor boith hands. Romberg. Negative. No pass pointing finger-nose. ASSESSMENT/PLAN: 1. Chronic anxiety - ICD9: 300.00, ICD10: F41.9 (primary diagnosis) Patient has self adjusted dosing with gabapentin. Recommend continue dose only at bedtime x 3-4 days. Phone or mychart with progress as often as needed. Was doing very well. Think anxiety was triggered by interruption of medication and holiday stress. 2. Essential tremor - ICD9: 333.1, ICD10: G25.0 Persistent but improved on gabapentin. Ashli Silva PA-C Referring Provider: Ashli SILVA (EMMA) [[id number]] Allergies As of Date: 04/01/2018 Noted Allergy Reaction AMPICILLIN 12/17/2006 8 - GI Upset Comments: Intolerance, can take cephalosporins AVELOX (MOXIFLOXACIN HCL) 09/21/2010 1 - Mental Status Change BACTRIM (SULFAMETHOXAZOLE-TRIMETH*03/05/2017 11 - Vomiting DOXYCYCLINE 12/17/2006 8 - GI Upset STEROIDS (CORTICOSTEROIDS (GLUCOC*12/12/2013 14 - Other: See Comments Comments: Anxiety, jittery and head feels funny Date Reviewed: 04/01/2018 Reviewed by: Olivia Espana LPN - Fully Assessed Reason for Visit: F/U 6 months [1177] Medication Problem [509] Cmt: patient missed a dose of gabapentin on Sunday. Took the next dose Sunday afternoon. Since taking that dose she has been dizzy, shaking, and very sleepy Memory Loss [66] Cmt: questions if d/t medication Reason For Visit History Recorded Primary Visit Diagnosis:Chronic anxiety [F41.9] Other Visit Diagnosis:Essential tremor [G25.0] Prescriptions as of 04/01/2018 Sig: GABAPENTIN 300 MG CAPSULE Take 1 capsule by mouth daily* MENTHOL 4 % TOPICAL GEL Apply 1 application to affect* PAROXETINE 40 MG TABLET Take 1 tablet by mouth once d* METFORMIN 850 MG TABLET take 1 tablet by mouth twice * PRAVASTATIN 20 MG TABLET take 1 tablet by mouth once d* IBUPROFEN 600 MG TABLET Take 1 tablet by mouth every * ALBUTEROL SULFATE HFA 90 MCG/* Inhale 2 Puffs as instructed * CHOLECALCIFEROL (VITAMIN D3) * Take 1 capsule by mouth once * BUSPIRONE 5 MG TABLET Take 1 tablet by mouth twice * Patient not taking: Reported on 04/01/2018 COMPOUNDED PRESCRIPTION Powerstep Original Full Lengt* X BLOOD SUGAR DIAGNOSTIC STRIPS Test twice daily COMPOUNDED PRESCRIPTION powerstep orthotics Dx: post* X BLOOD SUGAR DIAGNOSTIC STRIPS Use for blood sugar testing o* LANCETS Test blood sugar once daily. Problem List As Of Date 04/01/2018 Noted Resolved Well controlled type 2 diabetes mellitus with n*INVALID FOR* More... Hyperlipidemia with target LDL less than 70 [E7*INVALID FOR* Chronic low back pain [M54.5, G89.29] INVALID FOR* Depression with anxiety [F41.8] INVALID FOR* More... Fibromyalgia [M79.7] INVALID FOR* Osteoporosis [M81.0] INVALID FOR* More... Tobacco abuse [Z72.0] INVALID FOR* Pain in limb [M79.609] INVALID FOR* Atrophic vaginitis [N95.2] INVALID FOR* Hallux valgus, acquired [M20.10] INVALID FOR* Suture reaction [T81.89XA] INVALID FOR*04/08/2015 Dyspareunia [[id number]] INVALID FOR* Vitamin D deficiency [E55.9] INVALID FOR* Degenerative disc disease [[id number]] INVALID FOR* Scoliosis [M41.9] INVALID FOR* Lumbar radiculopathy [M54.16] INVALID FOR* Spinal stenosis of lumbar region without neurog*INVALID FOR* Essential tremor [G25.0] INVALID FOR* Pyogenic inflammation of bone (HCC) [M86.9] INVALID FOR* Medications Discontinued During This Encounter cholecalciferol (VITAMIN D3) 5,000 u* 30 t* 3 01/07/2018 04/01/2018 Route: ORAL Sig: Take 1 tablet by mouth once daily. Disc: Reason for discontinue is not on file. Encounter Status:Closed by Ashli SILVA PA-C on 04/01/18 [place] Observed: 04/01/2018 Status: COMPLETED Source: [place] 12:00 AM [facility] Telephone ([facility]) YAMILEX MERCADO ([id number]) 1955 F Date Time Provider Department 04/01/18 Ashli SILVA) [facility] During your visit today, we recorded the following information about you: Emmanuel Evita 04/01/2018 4:45 PM Signed Patient calls stating the company that was delivering diabetes supplies is no longer accepted by her insurance. Requesting supplies to [facility]. Would like new meter (does not matter what brand;current is a [employer] Autocode but is old), test strips, lancets, and alcohol swabs. Tests twice a day. Ashli Silva PA-C 04/01/2018 6:24 PM Signed The following approved medication requests have been transmitted electronically. Signed Prescriptions Disp Refills Blood-Glucose Meter monitoring kit 1 Each 0 Sig: Glucose Meter of Choice - Kit - Dx: E11.49 Authorizing Provider: Ashli SILVA (EMMA) alcohol swabs (ALCOHOL WIPES) padm 200 Each 3 Sig: Use as directed. Patient tests blood sugars twice a day. E11.49. Insulin: no. Authorizing Provider: Ashli SILVA (EMMA) blood sugar diagnostic (BLOOD GLUCOSE TEST) test strip 200 Strip 3 Sig: Test blood sugar(s) 2 times daily. Dx: Type 2 DM - Uncontrolled Insulin: No Authorizing Provider: Ashli SILVA (EMMA) EMMA Chawla LPN 04/02/2018 1:38 PM Signed Scripts faxed to [facility] Systems. 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 Patient tests blood sugars twice a day. E11. Insulin: no.Disp: 200 EachRfl: 3 blood sugar diagnostic (BLOOD GLUCOSE TEST) test stripTest blood sugar(s) 2 times daily. Dx: Type 2 DM - Uncontrolled Insulin: NoDisp: 200 StripRfl: 3 Prescriptions as of 04/01/2018 Sig: BLOOD-GLUCOSE METER KIT Glucose Meter of Choice - Kit* ALCOHOL SWABS Use as directed. Patient phong* BLOOD SUGAR DIAGNOSTIC STRIPS Test blood sugar(s) 2 times d* GABAPENTIN 300 MG CAPSULE Take 1 capsule by mouth daily* MENTHOL 4 % TOPICAL GEL Apply 1 application to affect* BUSPIRONE 5 MG TABLET Take 1 tablet by mouth twice * Patient not taking: Reported on 04/01/2018 PAROXETINE 40 MG TABLET Take 1 tablet by mouth once d* METFORMIN 850 MG TABLET take 1 tablet by mouth twice * PRAVASTATIN 20 MG TABLET take 1 tablet by mouth once d* IBUPROFEN 600 MG TABLET Take 1 tablet by mouth every * ALBUTEROL SULFATE HFA 90 MCG/* Inhale 2 Puffs as instructed * COMPOUNDED PRESCRIPTION Powerstep Original Full Lengt* CHOLECALCIFEROL (VITAMIN D3) * Take 1 capsule by mouth once * COMPOUNDED PRESCRIPTION powerstep orthotics Dx: post* LANCETS Test blood sugar once daily. Problem List As Of Date 04/01/2018 Noted Resolved Well controlled type 2 diabetes mellitus with n*INVALID FOR* More... Hyperlipidemia with target LDL less than 70 [E7*INVALID FOR* Chronic low back pain [M54.5, G89.29] INVALID FOR* Depression with anxiety [F41.8] INVALID FOR* More... Fibromyalgia [M79.7] INVALID FOR* Osteoporosis [M81.0] INVALID FOR* More... Tobacco abuse [Z72.0] INVALID FOR* Pain in limb [M79.609] INVALID FOR* Atrophic vaginitis [N95.2] INVALID FOR* Hallux valgus, acquired [M20.10] INVALID FOR* Suture reaction [T81.89XA] INVALID FOR*04/08/2015 Dyspareunia [YUI6367] INVALID FOR* Vitamin D deficiency [E55.9] INVALID FOR* Degenerative disc disease [LWC4677] INVALID FOR* Scoliosis [M41.9] INVALID FOR* Lumbar radiculopathy [M54.16] INVALID FOR* Spinal stenosis of lumbar region without neurog*INVALID FOR* Essential tremor [G25.0] INVALID FOR* Pyogenic inflammation of bone (HCC) [M86.9] INVALID FOR* Prescriptions ordered this encounter Disp Refills Start End BLOOD-GLUCOSE METER KIT 1 Ea* 0 04/01/2018 04/02/2018 Class: Print RX Sig: Glucose Meter of Choice - Kit - Dx: E11.49 ALCOHOL SWABS 200 * 3 04/01/2018 Class: Print RX Sig: Use as directed. Patient tests blood sugars twice a day. E11.49. Insulin: no. BLOOD SUGAR DIAGNOSTIC STRIPS 200 * 3 04/01/2018 Sig: Test blood sugar(s) 2 times daily. Dx: Type 2 DM - Uncontrolled E11.65 Insulin: No Medications Discontinued During This Encounter blood sugar diagnostic (ACCU-CHEK AV* 50 E* 12 11/26/2012 04/01/2018 Sig: Use for blood sugar testing once daily and as needed, 250.00 Disc: Reason for discontinue is not on file. blood sugar diagnostic (BLOOD GLUCOS* 50 S* 6 11/17/2016 04/01/2018 Sig: Test twice daily Disc: Reason for discontinue is not on file. Encounter Status:Closed by ABBY BOSS LPN on 04/01/18 12 LEAD ELECTROCARDIOGRAM Observed: 03/15/2018 Status: F Source: [place] 1:43 PM [facility] REPOSITORY [facility] Cardiovascular Services [address] [place] [address] 12 Lead EKG 03/12/18 1724 MR#: [id number] Acct: [id number] Name: YAMILEX MERCADO Rep #: [id number] : 1955 62 From: Trino Johnston MD Attending Dr: Status: DEP ER Ordering Dr: Brandi Mercer MD Date: 03/12/18 Location: ED Sex: F C Admitted: Test Reason : ANXIETY Blood Pressure : / mmHG Vent. Rate : 069 BPM Atrial Rate : 069 BPM P-R Int : 152 ms QRS Dur : 092 ms QT Int : 412 ms P-R-T Axes : 038 024 063 degrees QTc Int : 441 ms Normal sinus rhythm Normal ECG Confirmed by TRINO JOHNSTON MD ([id number]), news copy editor DONNA HOSKINS ([id number]) on 03/15/2018 1:43:17 PM Referred By: SHAHNAZ Confirmed By:TRINO JOHNSTON MD 03/15/18 1343 Date Trino Johnston MD CC: Ashli Silva; Brandi Mercer MD; Too Amin MD Signed EMERGENCY DEPARTMENT Observed: 03/12/2018 Status: F Source: [place] SUMMARY 10:39 PM [facility] REPOSITORY [facility] Medical Records Department [address] [place] [address] Emergency Department Summary 03/12/18 1901 MR#: [id number] Acct: [id number] Name: YAMILEX MERCADO Rep #: [id number] : 1955 62 From: Brandi Mercer MD PCP: Too Amin MD Status: DEP ER - ER Visit Summary Date of Service: 03/12/18 Chief Complaint: Anxiety reaction History of Present Illness: The patient is a 62 F presents to the emergency department anxiety. Patient has long-standing history of anxiety. She was on Xanax intermittently for the past 20 years. She states she is never abused it. She has not taken any in over 6 months. She states that she has been increasingly anxious lately. Her physician prescribed her BuSpar. She states she took it twice and felt like it made her feel worse. She describes dizziness, nausea, and lightheadedness. She states it feels like her normal panic attacks but was worsened. She is never taken the medication before. She is not suicidal. She denies any delusions or hallucinations. Physical Examination: Vital signs reviewed General: Well-nourished, well-developed Head: Normocephalic, atraumatic Eyes: Pupils equal and reactive, extraocular muscles intact Neck, supple, no lymphadenopathy Heart: Regular rate and rhythm Respiratory: No distress, clear bilaterally Abdomen: Soft, nontender, nondistended, no peritoneal signs Back: Nontender Extremities: Nontender, no edema, no cords Skin: Normal color no rash Neuro: Alert and oriented, no focal or lateralizing deficits Test Results: [] Emergency Department Course and Treatment: Patient does seem like she is having medication side effect read EKG was obtained which shows sinus rhythm without acute ischemia. Patient was kept on a monitor. Screening labs were obtained which are unremarkable. She was given fluids and IV Ativan. On reevaluation she is resting comfortably. At this time, I do feel this is likely secondary to her anxiety and her medication. She will be given a short course of Ativan until she can reestablish with her physician to determine plan of care. She will be discharged home. Treatment Plan: [] Disposition: Discharge Impression: Acute anxiety reaction This note was generated with Touristlink[employer] software. It may contain incorrect words, spelling, and punctuation that were not noted in review of the chart prior to signing ED Disposition - Plan for ED Patient: Chief Complaint: Anxiety Instructions: ED Panic Attack Prescriptions: Lorazepam [Ativan] 0.5 mg PO TID #10 tab Referrals: Too Amin MD [Primary Care Provider] - What to do if you have Problems For any increased pain, shortness of breath, bleeding, nausea or vomiting, chest pain, or any unexpected problems, contact your Primary Care Provider. Call [facility] ([phone]) or report to the closest Emergency Room. Call 911 if necessary. 03/12/183 <Electronically signed by Brandi Mercer MD> Date Brandi Mercer MD Cosigner Signature (If Indicated): Date CC: Ashli Silva; Too Amin MD CBC W/DIFF, AUTOMATED Collected: 03/12/2018 Status: F Source: [place] 5:35 PM [facility] REPOSITORY TYPE CODE TESTS RESULT OUT OF RANGE REFERENCE UNITS LAB L100.1000 4.4-11.0 K/mm3 Normal WBC 7.5 LAB L100.1200 4.2-5.4 M/mm3 Low RBC 3.94 LAB L100.1300 12.0-15.0 g/dl Low HGB 11.5 LAB L100.1400 37-47 % Low HCT 36.3 LAB L100.1500 81-99 fL Normal MCV 92.1 LAB L100.1600 27.0-32.0 pg Normal MCH 29.2 LAB L100.1700 32-36 g/gl Low MCHC 31.7 LAB L100.1810 11.6-14.6 % Normal RDW CV 13.9 LAB L100.1820 35.1-43.9 fl High RDW SD 46.6 LAB L100.1900 150-450 K/mm3 Normal PLT 217 LAB L100.2000 6.2-12.0 fl Normal MPV 11.1 LAB L100.2100 47-70 % Normal NEUT% 58.7 LAB L100.2200 19-41 % Normal LY% 29.3 LAB L100.2300 0-10 % Normal MONO% 7.0 LAB L100.2400 0-5 % Normal EO% 4.2 LAB L100.2500 0-1 % Normal BASO% 0.7 LAB L100.2550 0.0-0.9 % Normal IM GRAN % 0.100 Result Comment: IG% - Immature Granulocytes (promyelocytes, myelocytes and metamyelocytes) > 1% indicates that a LEFT SHIFT is Present. LAB L100.2620 2.0-7.7 X10 3/uL Normal Absolute Neut 4.4 LAB L100.2720 0.83-4.51 X10 3/ul Normal Absolute Lymph 2.21 Performed By: #### L100.0100 #### [facility] [address] [place], [address] BASIC METABOLIC Collected: 03/12/2018 Status: F Source: [place] PROFILE (BMP) 5:35 PM [facility] REPOSITORY TYPE CODE TESTS RESULT OUT OF RANGE REFERENCE UNITS LAB L501.0100 74-106 mg/dL High GLU 184 Result Comment: Fasting Glucose result greater than or equal to 126 mg/dL suggests DIABETES MELLITUS per A.D.A. criteria. Please note revised GLUCOSE reference range effective 2017. LAB L501.1000 7-18 mg/dL Normal BUN 17 LAB L501.1100 0.55-1.02 mg/dL High CREAT,SERUM 1.21 Result Comment: The validity of the calculated GFR AND GFRAA in patients over 70 years has not been determined. Clinical correlation is essential. LAB L501.1110 >60 mL/min Low EST GFR 48 Result Comment: Non- GFR Calc LAB L501.1115 >60 mL/min Low EST GFR - AA 58 Result Comment: GFR Calc LAB L501.1255 ml/min Normal Estimated CRCL 33.74 LAB L501.1300 10-20 RATIO Normal BUN/CRE 14.0 LAB L501.2200 8.5-10 mg/dL Normal .1 CA 8.6 LAB L501.5300 136-14 mmol/L Normal 5 NA 141 LAB L501.5600 3.5-5. mmol/L Normal 1 K 3.9 LAB L501.5900 98-107 mmol/L High CL 109 LAB L501.6100 21.0-3 mmol/L Normal 2.0 CO2 23.0 LAB L501.6200 5-15 Normal GAP 9 Performed By: #### L500.2500 #### [facility] [place], [address] CNPN Observed: 03/12/2018 Status: COMPLETED Source: [place] 12:00 AM [facility] [place] YAMILEX MERCADO ([id number]) 1955 F Date Time Provider Department 03/12/18 TOO AMIN [facility] During your visit today, we recorded the following information about you: Ileana Lopez LPN 03/12/2018 10:27 AM Signed Pt calls to report she took first buspirone 5 mg tab last night. Pt is to take 5 mg twice daily. Pt reports she took this mornings 5 mg tab. Pt reports she feels dizzy and her head feels weird/spacey. Pt is asking if she can take a half of a tab for tonight's dose. Pt is wondering if the 5 mg is too strong. Please review and advise. Ileana Amin MD 03/12/2018 12:57 PM Signed That is the dose we usually start with and the smallest I believe they make. Can cut in half. Sanam Mercado LPN 03/12/2018 4:39 PM Signed Pt in ER at this time due to increased anxiety, dizziness and feeling as if head in a vice. Will follow up with OV as soon as possible. Please note or advise otherwise Sanam Mccord LPN 03/13/2018 10:33 AM Signed Patient calling, states at ER yesterday they gave her a small dose of Ativan around 5:30-6 and a small prescription and told her to take another one at 11 pm last night. Patient states this morning she was unable to wake up, feels, jittery, and dizzy. Asking what PCP would recommend she do. States that she doesn't want to take anything that she cannot wake up with and feel tired all the time. Please advise. Eugenie Velásquez, RN, RN 03/13/2018 11:07 AM Signed Pt called and is requesting an Rx for Biofreeze sent to Anibal Amin MD 03/13/2018 11:19 AM Signed I would not recommend using the ativan. 1. We can refer to psychiatry if she would like.(not psychology) 2. biofreeze sent in. Maude Starr Ma 03/13/2018 12:13 PM Signed Called pt and notified her of PCP's response. Pt asked why she needs to see Psych. Told pt they have the tools and information to help with anxiety. Also some of them have Counselor/Therapist that pts' can f/u with regularly. Pt states she is going to check with [facility] and Insurance to see where is covered and will update us on where she is going. Maude Silva PA-C 03/13/2018 6:47 PM Signed Please have her come in for follow up next week with me. Too difficult to sort through in messages. I have offered other therapies including gabapentin which would help anxiety and tremor. Thanks, EMMA Talley Ma 03/14/2018 9:30 AM Signed Spoke with patient. She has an appointment to see Jj on 04/01/17. Patient asking if Dr. Amin could send in prescription of Gabapentin now. Please advise. Caitlyn Amin MD 03/14/2018 1:41 PM Signed rx sent, oarrs done Too Amin MD 03/14/2018 1:41 PM Signed Addended by: TOO AMIN MD on: 03/14/2018 01:41 PM Modules accepted: Orders Abby Boss LPN 03/14/2018 1:47 PM Signed Notified that sent in for patient. Allergies As of Date: 03/12/2018 Noted Allergy Reaction AMPICILLIN 12/17/2006 8 - GI Upset Comments: Intolerance, can take cephalosporins AVELOX (MOXIFLOXACIN HCL) 09/21/2010 1 - Mental Status Change BACTRIM (SULFAMETHOXAZOLE-TRIMETH*03/05/2017 11 - Vomiting DOXYCYCLINE 12/17/2006 8 - GI Upset STEROIDS (CORTICOSTEROIDS (GLUCOC*12/12/2013 14 - Other: See Comments Comments: Anxiety, jittery and head feels funny Date Reviewed: 02/27/2018 Reviewed by: Dirk (Rn)(Hist) IBETH Olea - Fully Assessed Reason for Visit: Medication Problem [65] Primary Visit Diagnosis:Anxiety [F41.9] Order(s):CONSULT TO PSYCHIATRY [7462] Order #: [id number]: 1 menthol (BIOFREEZE, MENTHOL,) 4 % gelApply 1 application to affected area twice daily as needed.Disp: 1 TubeRfl: 2 gabapentin (NEURONTIN) 300 mg capsuleTake 1 capsule by mouth daily at bedtime for 30 days.Disp: 30 capsuleRfl: 0 Prescriptions as of 03/12/2018 Sig: ALBUTEROL SULFATE HFA 90 MCG/* Inhale 2 Puffs as instructed * BLOOD SUGAR DIAGNOSTIC STRIPS Use for blood sugar testing o* BLOOD SUGAR DIAGNOSTIC STRIPS Test twice daily BUSPIRONE 5 MG TABLET Take 1 tablet by mouth twice * CHOLECALCIFEROL (VITAMIN D3) * Take 1 tablet by mouth once d* CHOLECALCIFEROL (VITAMIN D3) * Take 1 capsule by mouth once * COMPOUNDED PRESCRIPTION powerstep orthotics Dx: post* COMPOUNDED PRESCRIPTION Powerstep Original Full Lengt* GABAPENTIN 300 MG CAPSULE Take 1 capsule by mouth daily* IBUPROFEN 600 MG TABLET Take 1 tablet by mouth every * LANCETS Test blood sugar once daily. MENTHOL 4 % TOPICAL GEL Apply 1 application to affect* METFORMIN 850 MG TABLET take 1 tablet by mouth twice * PAROXETINE 40 MG TABLET Take 1 tablet by mouth once d* PRAVASTATIN 20 MG TABLET take 1 tablet by mouth once d* Problem List As Of Date 03/12/2018 Noted Resolved Well controlled type 2 diabetes mellitus with n*INVALID FOR* More... Hyperlipidemia with target LDL less than 70 [E7*INVALID FOR* Chronic low back pain [M54.5, G89.29] INVALID FOR* Depression with anxiety [F41.8] INVALID FOR* More... Fibromyalgia [M79.7] INVALID FOR* Osteoporosis [M81.0] INVALID FOR* More... Tobacco abuse [Z72.0] INVALID FOR* Pain in limb [M79.609] INVALID FOR* Atrophic vaginitis [N95.2] INVALID FOR* Hallux valgus, acquired [M20.10] INVALID FOR* Suture reaction [T81.89XA] INVALID FOR*04/08/2015 Dyspareunia [XAE7171] INVALID FOR* Vitamin D deficiency [E55.9] INVALID FOR* Degenerative disc disease [YVI2109] INVALID FOR* Scoliosis [M41.9] INVALID FOR* Lumbar radiculopathy [M54.16] INVALID FOR* Spinal stenosis of lumbar region without neurog*INVALID FOR* Essential tremor [G25.0] INVALID FOR* Pyogenic inflammation of bone (HCC) [M86.9] INVALID FOR* Prescriptions ordered this encounter Disp Refills Start End MENTHOL 4 % TOPICAL GEL 1 Tu* 2 03/13/2018 Route: TOPICAL Sig: Apply 1 application to affected area twice daily as needed. GABAPENTIN 300 MG CAPSULE 30 c* 0 03/14/2018 04/13/2018 Route: ORAL Sig: Take 1 capsule by mouth daily at bedtime for 30 days. Encounter Status:Closed by MAUDE STARR MA on 03/13/18 PROGRESS Observed: 03/11/2018 Status: COMPLETED Source: [place] 2:[address] [facility] REPOSITORY O ID: [id number] Author: Too Amin Service: (none) Author Type: Physician Type: Progress Notes Filed: 03/11/2018 2:37 PM Note Text: Patient presents with: Diabetes HPI: Patient presents today for office visit for follow up. Nursing Notes: Caitlyn Mathews Ma 03/11/2018 2:02 PM Unsigned DM: Reports overall feeling well. Medication side effects: No. Home sugar check frequency/results:checks 2 times a day. This morning, fasting BS was 171. Sugars have been elevated since having issues with anxiety. Hypoglycemic spells: No. Watching diet: Yes. Unexpected weight loss: No. Polyuria, polydipsia: No. Vision Changes: No. Foot lesions or numbness or pain: No. PSYCH: Currently tolerating medications well: Yes . Side effects: No. Sleep issues: Not sleeping well at all. Gets about 2-3 hours, gets up for a few hours, then will get an additional couple hours. Energy changes: low. Appetite changes: No. Current depression: Crying a lot. Current anxiety: Very anxious Suicidal ideation: No. Anxiety slowly getting worse since off Xanax. [place] time makes anxiety worse. Has a friend with medical issues that moved in a month ago. has a friend staying with her who is driving her crazy. She will be staying with her for a year. Had a breakdown Sunday. No suicidal ideation. Pulmonary: breathing is overall ok. Doing better since sinus surgery. Recent hba1c was 5.8. MEDICATIONS: Current Outpatient Prescriptions: albuterol HFA (VENTOLIN HFA) 90 mcg/actuation inhaler Inhale 2 Puffs as instructed every 4 hours as needed for Wheezing/Shortness of Breath. blood sugar diagnostic (ACCU-CHEK JIMMIE) test strip Use for blood sugar testing once daily and as needed, 250.00 blood sugar diagnostic (BLOOD GLUCOSE TEST) test strip Test twice daily budesonide (PULMICORT FLEXHALER) 180 mcg/actuation aepb Inhale 2 Puffs as instructed twice daily. (Patient not taking: Reported on 09/10/2017 ) calcium carbonate (CALTRATE) 600 mg (1,500 mg) tab Take 1 tablet by mouth once daily. (Patient not taking: Reported on 11/23/2017 ) cephALEXin (KEFLEX) 500 mg capsule Take 1 capsule by mouth three times daily. cholecalciferol (VITAMIN D3) 5,000 unit tab Take 1 tablet by mouth once daily. Cholecalciferol, Vitamin D3, 2,000 unit cap Take 1 capsule by mouth once daily. Cholecalciferol, Vitamin D3, 5,000 unit cap Take 1 capsule by mouth once daily. COMPOUNDED PRESCRIPTION powerstep orthoticsDx: posterior tibial tendon dysfunction flatfoot COMPOUNDED PRESCRIPTION Powerstep Original Full Length` cyclobenzaprine (FLEXERIL) 10 mg tablet Take 10 mg by mouth once daily. cyclobenzaprine (FLEXERIL) 10 mg tablet take 1 tablet by mouth once daily ibuprofen (MOTRIN) 600 mg tablet Take 1 tablet by mouth every 8 hours as needed. Lancets (ACCU-CHEK MULTICLIX LANCET) [facility] [place] Test blood sugar once daily. metFORMIN (GLUCOPHAGE) 850 mg tablet take 1 tablet by mouth twice a day with meals PARoxetine (PAXIL) 40 mg tablet Take 1 tablet by mouth once daily. polyethylene glycol 3350 (MIRALAX) 17 gram/dose powder Take 17 g by mouth once daily. For constipation from narcotics. (Patient not taking: Reported on 11/23/2017 ) pravastatin (PRAVACHOL) 20 mg tablet take 1 tablet by mouth once daily at bedtime Promethazine-DM (PHENERGAN-DM) 6.25-15 mg/5 mL syrup Take 5 mL by mouth four times daily as needed. propranolol (INDERAL) 10 mg tablet Take 1 tablet by mouth twice daily. (Patient not taking: Reported on 09/10/2017 ) sulfamethoxazole/trimethoprim (BACTRIM ORAL) Take by mouth. No current facility-administered medications for this visit. ALLERGIES: ALLERGIES Allergen Reactions - Ampicillin GI Upset Intolerance, can take cephalosporins - Avelox [Moxifloxaci* Mental Status Change - Bactrim [Sulfametho* Vomiting - Doxycycline GI Upset - Steroids [Corticost* Other: See Comments Anxiety, jittery and head feels funny PAST MEDICAL HISTORY Diagnosis Date - Adjustment disorder with depressed mood - Kidney stones - Mixed hyperlipidemia Hyperlipidemia - Other and unspecified hyperlipidemia in the past - Type II or unspecified type diabetes mellitus without mention of complication, not stated as uncontrolled PAST SURGICAL HISTORY Procedure Laterality Date - APPENDECTOMY - ESWL kidney stones - PAST SURGICAL HISTORY OF tubal preg - PAST SURGICAL HISTORY OF remote left leg/ ankle with plates and screws - PAST SURGICAL HISTORY OF 11/29/2011 Bunion Removed - REMOVAL GALLBLADDER - REMOVAL OF OVARY(S) bilaterally with hysterectomy - SINUS SURGERY HX 02/11/2018 - TOTAL ABD HYSTERECTOMY+BLAD REPR FAMILY HISTORY Problem Relation Age of Onset - Adopted: Yes - Diabetes Father - Diabetes Maternal Grandmother - Heart Father - Hypertension Father - Lipids Father - None Sister - Diabetes Daughter - Cancer Sister thyroid. 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 Has taken care of grandson. Reviewed current medications, allergies, past medical history, surgical history, family history and social history today. REVIEW OF SYSTEMS RESPIRATORY: Negative for cough, hemoptysis, wheezing, COPD, dyspnea or shortness of breath CARDIOVASCULAR: Negative for chest pain, leg swelling, hypertension, CHF or palpitations All other reviewed and negative other than HPI. HEALTH MAINTENANCE: Reviewed health maintenance issues today and recommended the following in detail. MAMMOGRAM -recommended. FECAL OCCULT BLOOD -recommended. PAP EVERY 5 YEARS had hyster INFLUENZA-had done a few days ago. VITALS: BP 96/52 Pulse 77 Wt 70.3 kg (155 lb) SpO2 97% BMI 27.03 kg/m? Last 4 Encounter Wt Readings: Date: Wt: 03/11/2018 70.3 kg (155 lb) 12/07/2017 71.2 kg (157 lb) 11/23/2017 71.2 kg (157 lb) 09/28/2017 72.6 kg (160 lb) PHYSICAL EXAMINATION: General appearance: anxious. Skin: Skin color, texture, turgor normal, no suspicious rashes or lesions Head: Normocephalic, no masses, lesions, tenderness or abnormalities Lungs: lungs clear to auscultation. No wheezing, rhonchi, rales Heart: RRR without murmur, gallop, or rubs. No ectopy Abdomen: Normal abdominal exam, Abdomen soft, non-tender. Bowel sounds normal. No masses, organomegaly Extremities: No deformities, edema, skin discoloration, clubbing or cyanosis. Good capillary refill. ASSESSMENT/PLAN: 1. Anxiety - ICD9: 300.00, ICD10: F41.9 (primary diagnosis) - add buspar. Avoid benzo's. Discussed risks and benefits. 2. 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 manifestations (HCC) - ICD9: 250.60, ICD10: E11.49 Controlled. - Continue current medications 3. Hyperlipidemia with target LDL less than 70 - ICD9: 272.4, ICD10: E78.5 Too Amin MD RTO in four weeks and prn. CNOV Observed: 03/11/2018 Status: COMPLETED Source: [place] 1:[address] [facility] REPOSITORY Office Visit (FAMPWS) YAMILEX MERCADO ([id number]) 1955 Date Time Provider Department 03/11/18 1:00 PM [facility] During your visit today, we recorded the following information about you: Pulse Blood pressure Weight 77/minute 96/52 70.3 kg Caitlyn Mathews Ma 03/11/2018 2:26 PM Signed DM: Reports overall feeling well. Medication side effects: No. Home sugar check frequency/results:checks 2 times a day. This morning, fasting BS was 171. Sugars have been elevated since having issues with anxiety. Hypoglycemic spells: No. Watching diet: Yes. Unexpected weight loss: No. Polyuria, polydipsia: No. Vision Changes: No. Foot lesions or numbness or pain: No. PSYCH: Currently tolerating medications well: Yes . Side effects: No. Sleep issues: Not sleeping well at all. Gets about 2-3 hours, gets up for a few hours, then will get an additional couple hours. Energy changes: low. Appetite changes: No. Current depression: Crying a lot. Current anxiety: Very anxious Suicidal ideation: No. Anxiety slowly getting worse since off Xanax. [place] time makes anxiety worse. Has a friend with medical issues that moved in a month ago. Too Amin MD 03/11/2018 2:37 PM Signed Patient presents with: Diabetes HPI: Patient presents today for office visit for follow up. Nursing Notes: Caitlyn Mathews Ma 03/11/2018 2:02 PM Unsigned DM: Reports overall feeling well. Medication side effects: No. Home sugar check frequency/results:checks 2 times a day. This morning, fasting BS was 171. Sugars have been elevated since having issues with anxiety. Hypoglycemic spells: No. Watching diet: Yes. Unexpected weight loss: No. Polyuria, polydipsia: No. Vision Changes: No. Foot lesions or numbness or pain: No. PSYCH: Currently tolerating medications well: Yes . Side effects: No. Sleep issues: Not sleeping well at all. Gets about 2-3 hours, gets up for a few hours, then will get an additional couple hours. Energy changes: low. Appetite changes: No. Current depression: Crying a lot. Current anxiety: Very anxious Suicidal ideation: No. Anxiety slowly getting worse since off Xanax. Lin time makes anxiety worse. Has a friend with medical issues that moved in a month ago. has a friend staying with her who is driving her crazy. She will be staying with her for a year. Had a breakdown Sunday. No suicidal ideation. Pulmonary: breathing is overall ok. Doing better since sinus surgery. Recent hba1c was 5.8. MEDICATIONS: Current Outpatient Prescriptions: albuterol HFA (VENTOLIN HFA) 90 mcg/actuation inhaler Inhale 2 Puffs as instructed every 4 hours as needed for Wheezing/Shortness of Breath. blood sugar diagnostic (ACCU-CHEK JIMMIE) test strip Use for blood sugar testing once daily and as needed, 250.00 blood sugar diagnostic (BLOOD GLUCOSE TEST) test strip Test twice daily budesonide (PULMICORT FLEXHALER) 180 mcg/actuation aepb Inhale 2 Puffs as instructed twice daily. (Patient not taking: Reported on 09/10/2017 ) calcium carbonate (CALTRATE) 600 mg (1,500 mg) tab Take 1 tablet by mouth once daily. (Patient not taking: Reported on 11/23/2017 ) cephALEXin (KEFLEX) 500 mg capsule Take 1 capsule by mouth three times daily. cholecalciferol (VITAMIN D3) 5,000 unit tab Take 1 tablet by mouth once daily. Cholecalciferol, Vitamin D3, 2,000 unit cap Take 1 capsule by mouth once daily. Cholecalciferol, Vitamin D3, 5,000 unit cap Take 1 capsule by mouth once daily. COMPOUNDED PRESCRIPTION powerstep orthoticsDx: posterior tibial tendon dysfunction flatfoot COMPOUNDED PRESCRIPTION Powerstep Original Full Length` cyclobenzaprine (FLEXERIL) 10 mg tablet Take 10 mg by mouth once daily. cyclobenzaprine (FLEXERIL) 10 mg tablet take 1 tablet by mouth once daily ibuprofen (MOTRIN) 600 mg tablet Take 1 tablet by mouth every 8 hours as needed. Lancets (ACCU-CHEK MULTICLIX LANCET) [facility] [place] blood sugar once daily. metFORMIN (GLUCOPHAGE) 850 mg tablet take 1 tablet by mouth twice a day with meals PARoxetine (PAXIL) 40 mg tablet Take 1 tablet by mouth once daily. polyethylene glycol 3350 (MIRALAX) 17 gram/dose powder Take 17 g by mouth once daily. For constipation from narcotics. (Patient not taking: Reported on 11/23/2017 ) pravastatin (PRAVACHOL) 20 mg tablet take 1 tablet by mouth once daily at bedtime Promethazine-DM (PHENERGAN-DM) 6.25-15 mg/5 mL syrup Take 5 mL by mouth four times daily as needed. propranolol (INDERAL) 10 mg tablet Take 1 tablet by mouth twice daily. (Patient not taking: Reported on 09/10/2017 ) sulfamethoxazole/trimethoprim (BACTRIM ORAL) Take by mouth. No current facility-administered medications for this visit. ALLERGIES: ALLERGIES Allergen Reactions - Ampicillin GI Upset Intolerance, can take cephalosporins - Avelox [Moxifloxaci* Mental Status Change - Bactrim [Sulfametho* Vomiting - Doxycycline GI Upset - Steroids [Corticost* Other: See Comments Anxiety, jittery and head feels funny PAST MEDICAL HISTORY Diagnosis Date - Adjustment disorder with depressed mood - Kidney stones - Mixed hyperlipidemia Hyperlipidemia - Other and unspecified hyperlipidemia in the past - Type II or unspecified type diabetes mellitus without mention of complication, not stated as uncontrolled PAST SURGICAL HISTORY Procedure Laterality Date - APPENDECTOMY - ESWL kidney stones - PAST SURGICAL HISTORY OF tubal preg - PAST SURGICAL HISTORY OF remote left leg/ ankle with plates and screws - PAST SURGICAL HISTORY OF 11/29/2011 Bunion Removed - REMOVAL GALLBLADDER - REMOVAL OF OVARY(S) bilaterally with hysterectomy - SINUS SURGERY HX 02/11/2018 - TOTAL ABD HYSTERECTOMY+BLAD REPR FAMILY HISTORY Problem Relation Age of Onset - Adopted: Yes - Diabetes Father - Diabetes Maternal Grandmother - Heart Father - Hypertension Father - Lipids Father - None Sister - Diabetes Daughter - Cancer Sister thyroid. 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 Has taken care of grandson. Reviewed current medications, allergies, past medical history, surgical history, family history and social history today. REVIEW OF SYSTEMS RESPIRATORY: Negative for cough, hemoptysis, wheezing, COPD, dyspnea or shortness of breath CARDIOVASCULAR: Negative for chest pain, leg swelling, hypertension, CHF or palpitations All other reviewed and negative other than HPI. HEALTH MAINTENANCE: Reviewed health maintenance issues today and recommended the following in detail. MAMMOGRAM -recommended. FECAL OCCULT BLOOD -recommended. PAP EVERY 5 YEARS had hyster INFLUENZA-had done a few days ago. VITALS: BP 96/52 Pulse 77 Wt 70.3 kg (155 lb) SpO2 97% BMI 27.03 kg/m? Last 4 Encounter Wt Readings: Date: Wt: 03/11/2018 70.3 kg (155 lb) 12/07/2017 71.2 kg (157 lb) 11/23/2017 71.2 kg (157 lb) 09/28/2017 72.6 kg (160 lb) PHYSICAL EXAMINATION: General appearance: anxious. Skin: Skin color, texture, turgor normal, no suspicious rashes or lesions Head: Normocephalic, no masses, lesions, tenderness or abnormalities Lungs: lungs clear to auscultation. No wheezing, rhonchi, rales Heart: RRR without murmur, gallop, or rubs. No ectopy Abdomen: Normal abdominal exam, Abdomen soft, non-tender. Bowel sounds normal. No masses, organomegaly Extremities: No deformities, edema, skin discoloration, clubbing or cyanosis. Good capillary refill. ASSESSMENT/PLAN: 1. Anxiety - ICD9: 300.00, ICD10: F41.9 (primary diagnosis) - add buspar. Avoid benzo's. Discussed risks and benefits. 2. 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 manifestations (HCC) - ICD9: 250.60, ICD10: E11.49 Controlled. - Continue current medications 3. Hyperlipidemia with target LDL less than 70 - ICD9: 272.4, ICD10: E78.5 Too Amin MD RTO in four weeks and prn. Referring Provider: Ashli SILVA ([facility]) [[id number]] Allergies As of Date: 03/11/2018 Noted Allergy Reaction AMPICILLIN 12/17/2006 8 - GI Upset Comments: Intolerance, can take cephalosporins AVELOX (MOXIFLOXACIN HCL) 09/21/2010 1 - Mental Status Change BACTRIM (SULFAMETHOXAZOLE-TRIMETH*03/05/2017 11 - Vomiting DOXYCYCLINE 12/17/2006 8 - GI Upset STEROIDS (CORTICOSTEROIDS (GLUCOC*12/12/2013 14 - Other: See Comments Comments: Anxiety, jittery and head feels funny Date Reviewed: 02/27/2018 Reviewed by: Dirk (Rn)(Hist) IBETH Olea - Fully Assessed Reason for Visit: Diabetes [34] Primary Visit Diagnosis:Anxiety [F41.9] Other Visit Diagnoses: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 manifestations (HCC) [E11.49] Hyperlipidemia with target LDL less than 70 [E78.5] Order(s):busPIRone (BUSPAR) 5 mg tabletTake 1 tablet by mouth twice daily.Disp: 60 tabletRfl: 5 Prescriptions as of 03/11/2018 Sig: ALBUTEROL SULFATE HFA 90 MCG/* Inhale 2 Puffs as instructed * BLOOD SUGAR DIAGNOSTIC STRIPS Use for blood sugar testing o* BLOOD SUGAR DIAGNOSTIC STRIPS Test twice daily BUSPIRONE 5 MG TABLET Take 1 tablet by mouth twice * CHOLECALCIFEROL (VITAMIN D3) * Take 1 tablet by mouth once d* CHOLECALCIFEROL (VITAMIN D3) * Take 1 capsule by mouth once * COMPOUNDED PRESCRIPTION powerstep orthotics Dx: post* COMPOUNDED PRESCRIPTION Powerstep Original Full Lengt* IBUPROFEN 600 MG TABLET Take 1 tablet by mouth every * LANCETS Test blood sugar once daily. METFORMIN 850 MG TABLET take 1 tablet by mouth twice * PAROXETINE 40 MG TABLET Take 1 tablet by mouth once d* PRAVASTATIN 20 MG TABLET take 1 tablet by mouth once d* Problem List As Of Date 03/11/2018 Noted Resolved Well controlled type 2 diabetes mellitus with n*INVALID FOR* More... Hyperlipidemia with target LDL less than 70 [E7*INVALID FOR* Chronic low back pain [M54.5, G89.29] INVALID FOR* Depression with anxiety [F41.8] INVALID FOR* More... Fibromyalgia [M79.7] INVALID FOR* Osteoporosis [M81.0] INVALID FOR* More... Tobacco abuse [Z72.0] INVALID FOR* Pain in limb [M79.609] INVALID FOR* Atrophic vaginitis [N95.2] INVALID FOR* Hallux valgus, acquired [M20.10] INVALID FOR* Suture reaction [T81.89XA] INVALID FOR*04/08/2015 Dyspareunia [MBB7682] INVALID FOR* Vitamin D deficiency [E55.9] INVALID FOR* Degenerative disc disease [FNA8640] INVALID FOR* Scoliosis [M41.9] INVALID FOR* Lumbar radiculopathy [M54.16] INVALID FOR* Spinal stenosis of lumbar region without neurog*INVALID FOR* Essential tremor [G25.0] INVALID FOR* Pyogenic inflammation of bone (HCC) [M86.9] INVALID FOR* Visit Notes: >> Caitlyn Mathews Ma Mon Mar 11, 2018 1:49 PM Status: Signed DM: Reports overall feeling well. Medication side effects: No. Home sugar check frequency/results:checks 2 times a day. This morning, fasting BS was 171. Sugars have been elevated since having issues with anxiety. Hypoglycemic spells: No. Watching diet: Yes. Unexpected weight loss: No. Polyuria, polydipsia: No. Vision Changes: No. Foot lesions or numbness or pain: No. PSYCH: Currently tolerating medications well: Yes . Side effects: No. Sleep issues: Not sleeping well at all. Gets about 2-3 hours, gets up for a few hours, then will get an additional couple hours. Energy changes: low. Appetite changes: No. Current depression: Crying a lot. Current anxiety: Very anxious Suicidal ideation: No. Anxiety slowly getting worse since off Xanax. [place] time makes anxiety worse. Has a friend with medical issues that moved in a month ago. Prescriptions ordered this encounter Disp Refills Start End BUSPIRONE 5 MG TABLET 60 t* 5 03/11/2018 Route: ORAL Sig: Take 1 tablet by mouth twice daily. Medications Discontinued During This Encounter cephALEXin (KEFLEX) 500 mg capsule 30 c* 0 08/13/2017 03/11/2018 Route: ORAL Sig: Take 1 capsule by mouth three times daily. Disc: Reason for discontinue is not on file. Cholecalciferol, Vitamin D3, 2,000 u* 100 * 3 12/07/2015 03/11/2018 Route: ORAL Sig: Take 1 capsule by mouth once daily. Disc: Reason for discontinue is not on file. budesonide (PULMICORT FLEXHALER) 180* 1 In* 2 01/11/2016 03/11/2018 Route: INHALATION Sig: Inhale 2 Puffs as instructed twice daily. Patient not taking: Reported on 09/10/2017 Disc: Reason for discontinue is not on file. calcium carbonate (CALTRATE) 600 mg * 90 t* 3 12/07/2015 03/11/2018 Route: ORAL Sig: Take 1 tablet by mouth once daily. Patient not taking: Reported on 11/23/2017 Disc: Reason for discontinue is not on file. cyclobenzaprine (FLEXERIL) 10 mg tab* 05/24/2016 03/11/2018 Class: Historical Med Route: ORAL Sig: Take 10 mg by mouth once daily. Disc: Reason for discontinue is not on file. cyclobenzaprine (FLEXERIL) 10 mg tab* 30 t* 1 07/09/2017 03/11/2018 Sig: take 1 tablet by mouth once daily Disc: Reason for discontinue is not on file. Promethazine-DM (PHENERGAN-DM) 6.25-* 120 * 0 09/28/2017 03/11/2018 Route: ORAL Sig: Take 5 mL by mouth four times daily as needed. Disc: Reason for discontinue is not on file. sulfamethoxazole/trimethoprim (BACTR* 03/11/2018 Class: Historical Med Route: ORAL Sig: Take by mouth. Disc: Reason for discontinue is not on file. propranolol (INDERAL) 10 mg tablet 60 t* 2 08/13/2017 03/11/2018 Route: ORAL Sig: Take 1 tablet by mouth twice daily. Patient not taking: Reported on 09/10/2017 Disc: Reason for discontinue is not on file. polyethylene glycol 3350 (MIRALAX) 1* 1 Cory* 2 06/27/2016 03/11/2018 Route: ORAL Sig: Take 17 g by mouth once daily. For constipation from narcotics. Patient not taking: Reported on 11/23/2017 Disc: Reason for discontinue is not on file. Disposition: Return if symptoms worsen or fail to improve. Follow-up and Disposition History Recorded Encounter Status:Closed by TOO AMIN MD on 03/11/18 PROGRESS Observed: 02/27/2018 Status: COMPLETED Source: [place] 1:[address] [facility] REPOSITORY HNO ID: [id number] Author: Jackeline Vargas Service: (none) Author Type: Physician Type: Progress Notes Filed: 02/27/2018 1:17 PM Note Text: Follow up podiatric office visit for: Chief Complaint: This 62 year old who presents for follow up: b/l ankle pain and diabetic foot check and painful toenails. Patient continues to complain of b/l ankle pain. Patient uses afo on left foot but patient not sure if this is helping. She has used the powersteps in past which she does help. She states her diabetes is doing well. No issues with her feet pertinent to diabetes. Patient complains of painful toenails that she would like debrided. PAIN EVALUATION 02/27/2018 Pain Score: 7 Pain Location: - b/l ankles Description: Aching Duration Amount of Time: 4 Duration Units: Months Frequency: Intermittent Intervention: Medication tylenol Hemoglobin A1C Date Value Ref Range Status 02/05/2018 5.9 4.2 - 6.3 Final 09/05/2017 5.8 (H) 4.3 - 5.6 % Final PCP: Ashli Silva PA-C PAST MEDICAL HISTORY Diagnosis Date - Adjustment disorder with depressed mood - Kidney stones - Mixed hyperlipidemia Hyperlipidemia - Other and unspecified hyperlipidemia in the past - Type II or unspecified type diabetes mellitus without mention of complication, not stated as uncontrolled Current Outpatient Prescriptions: PARoxetine (PAXIL) 40 mg tablet Take 1 tablet by mouth once daily. cholecalciferol (VITAMIN D3) 5,000 unit tab Take 1 tablet by mouth once daily. metFORMIN (GLUCOPHAGE) 850 mg tablet take 1 tablet by mouth twice a day with meals pravastatin (PRAVACHOL) 20 mg tablet take 1 tablet by mouth once daily at bedtime ibuprofen (MOTRIN) 600 mg tablet Take 1 tablet by mouth every 8 hours as needed. sulfamethoxazole/trimethoprim (BACTRIM ORAL) Take by mouth. Promethazine-DM (PHENERGAN-DM) 6.25-15 mg/5 mL syrup Take 5 mL by mouth four times daily as needed. albuterol HFA (VENTOLIN HFA) 90 mcg/actuation inhaler Inhale 2 Puffs as instructed every 4 hours as needed for Wheezing/Shortness of Breath. COMPOUNDED PRESCRIPTION Powerstep Original Full Length` propranolol (INDERAL) 10 mg tablet Take 1 tablet by mouth twice daily. (Patient not taking: Reported on 09/10/2017 ) cephALEXin (KEFLEX) 500 mg capsule Take 1 capsule by mouth three times daily. cyclobenzaprine (FLEXERIL) 10 mg tablet take 1 tablet by mouth once daily Cholecalciferol, Vitamin D3, 5,000 unit cap Take 1 capsule by mouth once daily. blood sugar diagnostic (BLOOD GLUCOSE TEST) test strip Test twice daily COMPOUNDED PRESCRIPTION powerstep orthoticsDx: posterior tibial tendon dysfunction flatfoot cyclobenzaprine (FLEXERIL) 10 mg tablet Take 10 mg by mouth once daily. polyethylene glycol 3350 (MIRALAX) 17 gram/dose powder Take 17 g by mouth once daily. For constipation from narcotics. (Patient not taking: Reported on 11/23/2017 ) budesonide (PULMICORT FLEXHALER) 180 mcg/actuation aepb Inhale 2 Puffs as instructed twice daily. (Patient not taking: Reported on 09/10/2017 ) Cholecalciferol, Vitamin D3, 2,000 unit cap Take 1 capsule by mouth once daily. calcium carbonate (CALTRATE) 600 mg (1,500 mg) tab Take 1 tablet by mouth once daily. (Patient not taking: Reported on 11/23/2017 ) blood sugar diagnostic (ACCU-CHEK JIMMIE) test strip Use for blood sugar testing once daily and as needed, 250.00 Lancets (ACCU-CHEK MULTICLIX LANCET) [facility] [place] Test blood sugar once daily. No current facility-administered medications for this visit. ALLERGIES Allergen Reactions - Ampicillin GI Upset Intolerance, can take cephalosporins - Avelox [Moxifloxaci* Mental Status Change - Bactrim [Sulfametho* Vomiting - Doxycycline GI Upset - Steroids [Corticost* Other: See Comments Anxiety, jittery and head feels funny PAST SURGICAL HISTORY Procedure Laterality Date - APPENDECTOMY - ESWL kidney stones - PAST SURGICAL HISTORY OF tubal preg - PAST SURGICAL HISTORY OF remote left leg/ ankle with plates and screws - PAST SURGICAL HISTORY OF 11/29/2011 Bunion Removed - REMOVAL GALLBLADDER - REMOVAL OF OVARY(S) bilaterally with hysterectomy - TOTAL ABD HYSTERECTOMY+BLAD REPR REVIEW OF SYSTEMS: CONSTITUTIONAL: No fevers, chills, nightsweats, unintended weight loss HEENT: Denies frequent or severe heaches, nasal congestion/sinus symptoms, problematic allergy problems. EYES: No diplopia or blurry vision. CARDIOVASCULAR: No chest pain, dyspnea, palpitations, orthopnea, PND, ankle edema. PULM: No dyspnea, unexplained cough. GI: No dysphagia/odynophagia, problematic reflux, constipation, diarrhea, changes in stool habits, hematochezia, melena. : No new urinary complaints, including dysuria, gross hematuria or pyuria. NEURO: No new balance problems, peripheral weakness/paresthesias or numbness of concern. MUSC-SKEL: Pain of b/l ankle PSY: No concerns regarding depression, anxiety or panic. INTEGUMENTARY: No new skin changes (rash, new or changing mole, new growth) Physical Exam: Constitutional: Pt is a well developed 62 year old female who is alert, oriented, cooperative and in no apparent distress. OBJECTIVE: NVSI unchanged from previous visit. Dermatological: Nails 1-5 b/l are thick and painful. Webspaces clean and dry 1-4 b/l. Skin appears well hydrated and supple. good color, texture, turgor. No open lesions present. No callosities present. Musculoskeletal/Orthopaedic: Patient has pain to palpation of b/l subtalar joint and sinus tarsi There is collapse of medial arch b/l Plantarflexion, dorsiflexion, inversion and eversion is 5/5 ASSESSMENT: (M25.572, G89.29) Chronic pain of left ankle (primary encounter diagnosis) (M25.571, G89.29) Chronic pain of right ankle (M21.41, M21.42) Pes planus of both feet (B35.1) Onychomycosis (M79.675) Pain in toe of left foot (M79.674) Pain in toe of right foot PLAN: 1. History and physical examination completed today. 2. Discussed pain of b/l lower extremity. She has pain along sinus tarsi. Suspect component of flat foot. Continue with inserts or afo. Discussed injection with steroid. She elected to hold. Offered repeat xrays but she declined. 3. Toenails 1-5 b/l debrided in length and thickness 4. F/u in 3 months for diabetic foot exam and nail care Jackeline Vargas DPM PROGRESS Observed: 02/27/2018 Status: COMPLETED Source: [place] 12:58 PM [facility] REPOSITORY HNO ID: [id number] Author: Dirk (Rn) IBETH Olea Service: (none) Author Type: Registered Nurse Type: Progress Notes Filed: 02/27/2018 1:17 PM Note Text: AMB ROOMING INTAKE FLOWSHEET DATA Risk Screening Do you have concerns about personal safety or safety in the home?: No Pain Pain Score: 7/10 Pain Location: (b/l ankles) Description: Aching Duration Amount of Time: 4 Duration Units: Months Frequency: Intermittent Intervention: Medication (tylenol) Patient presents with: Established Patient: b/l ankle pain follow up patient is here for b/l ankle pain, patient last OV was 01/07/18 with Testke. Patient wears a brace on left foot always. Patient takes tylenol for pain, ankles hurt when walking. Dirk Olea RN CNOV Observed: 02/27/2018 Status: COMPLETED Source: [place] 12:40 PM [facility] REPOSITORY Office Visit (PODIWS) YAMILEX MERCADO ([id number]) 1955 F Date Time Provider Department 02/27/18 12:40 PM JACKELINE VARGAS During your visit today, we recorded the following information about you: Dirk Olea RN, RN 02/27/2018 1:17 PM Signed AMB ROOMING INTAKE FLOWSHEET DATA Risk Screening Do you have concerns about personal safety or safety in the home?: No Pain Pain Score: 7/10 Pain Location: (b/l ankles) Description: Aching Duration Amount of Time: 4 Duration Units: Months Frequency: Intermittent Intervention: Medication (tylenol) Patient presents with: Established Patient: b/l ankle pain follow up patient is here for b/l ankle pain, patient last OV was 01/07/18 with Sam. Patient wears a brace on left foot always. Patient takes tylenol for pain, ankles hurt when walking. IBETH Mooreew Sam, JESUS 02/27/2018 1:17 PM Signed Follow up podiatric office visit for: Chief Complaint: This 62 year old who presents for follow up: b/l ankle pain and diabetic foot check and painful toenails. Patient continues to complain of b/l ankle pain. Patient uses afo on left foot but patient not sure if this is helping. She has used the powersteps in past which she does help. She states her diabetes is doing well. No issues with her feet pertinent to diabetes. Patient complains of painful toenails that she would like debrided. PAIN EVALUATION 02/27/2018 Pain Score: 7 Pain Location: - b/l ankles Description: Aching Duration Amount of Time: 4 Duration Units: Months Frequency: Intermittent Intervention: Medication tylenol Hemoglobin A1C Date Value Ref Range Status 02/05/2018 5.9 4.2 - 6.3 Final 09/05/2017 5.8 (H) 4.3 - 5.6 % Final PCP: Ashli Silva PA-C PAST MEDICAL HISTORY Diagnosis Date - Adjustment disorder with depressed mood - Kidney stones - Mixed hyperlipidemia Hyperlipidemia - Other and unspecified hyperlipidemia in the past - Type II or unspecified type diabetes mellitus without mention of complication, not stated as uncontrolled Current Outpatient Prescriptions: PARoxetine (PAXIL) 40 mg tablet Take 1 tablet by mouth once daily. cholecalciferol (VITAMIN D3) 5,000 unit tab Take 1 tablet by mouth once daily. metFORMIN (GLUCOPHAGE) 850 mg tablet take 1 tablet by mouth twice a day with meals pravastatin (PRAVACHOL) 20 mg tablet take 1 tablet by mouth once daily at bedtime ibuprofen (MOTRIN) 600 mg tablet Take 1 tablet by mouth every 8 hours as needed. sulfamethoxazole/trimethoprim (BACTRIM ORAL) Take by mouth. Promethazine-DM (PHENERGAN-DM) 6.25-15 mg/5 mL syrup Take 5 mL by mouth four times daily as needed. albuterol HFA (VENTOLIN HFA) 90 mcg/actuation inhaler Inhale 2 Puffs as instructed every 4 hours as needed for Wheezing/Shortness of Breath. COMPOUNDED PRESCRIPTION Powerstep Original Full Length` propranolol (INDERAL) 10 mg tablet Take 1 tablet by mouth twice daily. (Patient not taking: Reported on 09/10/2017 ) cephALEXin (KEFLEX) 500 mg capsule Take 1 capsule by mouth three times daily. cyclobenzaprine (FLEXERIL) 10 mg tablet take 1 tablet by mouth once daily Cholecalciferol, Vitamin D3, 5,000 unit cap Take 1 capsule by mouth once daily. blood sugar diagnostic (BLOOD GLUCOSE TEST) test strip Test twice daily COMPOUNDED PRESCRIPTION powerstep orthoticsDx: posterior tibial tendon dysfunction flatfoot cyclobenzaprine (FLEXERIL) 10 mg tablet Take 10 mg by mouth once daily. polyethylene glycol 3350 (MIRALAX) 17 gram/dose powder Take 17 g by mouth once daily. For constipation from narcotics. (Patient not taking: Reported on 11/23/2017 ) budesonide (PULMICORT FLEXHALER) 180 mcg/actuation aepb Inhale 2 Puffs as instructed twice daily. (Patient not taking: Reported on 09/10/2017 ) Cholecalciferol, Vitamin D3, 2,000 unit cap Take 1 capsule by mouth once daily. calcium carbonate (CALTRATE) 600 mg (1,500 mg) tab Take 1 tablet by mouth once daily. (Patient not taking: Reported on 11/23/2017 ) blood sugar diagnostic (ACCU-CHEK JIMMIE) test strip Use for blood sugar testing once daily and as needed, 250.00 Lancets (ACCU-CHEK MULTICLIX LANCET) [facility] [place] blood sugar once daily. No current facility-administered medications for this visit. ALLERGIES Allergen Reactions - Ampicillin GI Upset Intolerance, can take cephalosporins - Avelox [Moxifloxaci* Mental Status Change - Bactrim [Sulfametho* Vomiting - Doxycycline GI Upset - Steroids [Corticost* Other: See Comments Anxiety, jittery and head feels funny PAST SURGICAL HISTORY Procedure Laterality Date - APPENDECTOMY - ESWL kidney stones - PAST SURGICAL HISTORY OF tubal preg - PAST SURGICAL HISTORY OF remote left leg/ ankle with plates and screws - PAST SURGICAL HISTORY OF 11/29/2011 Bunion Removed - REMOVAL GALLBLADDER - REMOVAL OF OVARY(S) bilaterally with hysterectomy - TOTAL ABD HYSTERECTOMY+BLAD REPR REVIEW OF SYSTEMS: CONSTITUTIONAL: No fevers, chills, nightsweats, unintended weight loss HEENT: Denies frequent or severe heaches, nasal congestion/sinus symptoms, problematic allergy problems. EYES: No diplopia or blurry vision. CARDIOVASCULAR: No chest pain, dyspnea, palpitations, orthopnea, PND, ankle edema. PULM: No dyspnea, unexplained cough. GI: No dysphagia/odynophagia, problematic reflux, constipation, diarrhea, changes in stool habits, hematochezia, melena. : No new urinary complaints, including dysuria, gross hematuria or pyuria. NEURO: No new balance problems, peripheral weakness/paresthesias or numbness of concern. MUSC-SKEL: Pain of b/l ankle PSY: No concerns regarding depression, anxiety or panic. INTEGUMENTARY: No new skin changes (rash, new or changing mole, new growth) Physical Exam: Constitutional: Pt is a well developed 62 year old female who is alert, oriented, cooperative and in no apparent distress. OBJECTIVE: NVSI unchanged from previous visit. Dermatological: Nails 1-5 b/l are thick and painful. Webspaces clean and dry 1-4 b/l. Skin appears well hydrated and supple. good color, texture, turgor. No open lesions present. No callosities present. Musculoskeletal/Orthopaedic: Patient has pain to palpation of b/l subtalar joint and sinus tarsi There is collapse of medial arch b/l Plantarflexion, dorsiflexion, inversion and eversion is 5/5 ASSESSMENT: (M25.572, G89.29) Chronic pain of left ankle (primary encounter diagnosis) (M25.571, G89.29) Chronic pain of right ankle (M21.41, M21.42) Pes planus of both feet (B35.1) Onychomycosis (M79.675) Pain in toe of left foot (M79.674) Pain in toe of right foot PLAN: 1. History and physical examination completed today. 2. Discussed pain of b/l lower extremity. She has pain along sinus tarsi. Suspect component of flat foot. Continue with inserts or afo. Discussed injection with steroid. She elected to hold. Offered repeat xrays but she declined. 3. Toenails 1-5 b/l debrided in length and thickness 4. F/u in 3 months for diabetic foot exam and nail care Jackeline Vargas DPM Referring Provider: SELF [200] Allergies As of Date: 02/27/2018 Noted Allergy Reaction AMPICILLIN 12/17/2006 8 - GI Upset Comments: Intolerance, can take cephalosporins AVELOX (MOXIFLOXACIN HCL) 09/21/2010 1 - Mental Status Change BACTRIM (SULFAMETHOXAZOLE-TRIMETH*03/05/2017 11 - Vomiting DOXYCYCLINE 12/17/2006 8 - GI Upset STEROIDS (CORTICOSTEROIDS (GLUCOC*12/12/2013 14 - Other: See Comments Comments: Anxiety, jittery and head feels funny Date Reviewed: 02/27/2018 Reviewed by: Dirk (Rn) IBETH Olea - Fully Assessed Reason for Visit: Established Patient [175] Cmt: b/l ankle pain follow up Reason For Visit History Recorded Primary Visit Diagnosis:Chronic pain of left ankle [M25.572, G89.29] Other Visit Diagnoses:Chronic pain of right ankle [M25.571, G89.29] Pes planus of both feet [M21.41, M21.42] Onychomycosis [B35.1] Pain in toe of left foot [M79.675] Pain in toe of right foot [M79.674] Prescriptions as of 02/27/2018 Sig: PAROXETINE 40 MG TABLET Take 1 tablet by mouth once d* CHOLECALCIFEROL (VITAMIN D3) * Take 1 tablet by mouth once d* METFORMIN 850 MG TABLET take 1 tablet by mouth twice * PRAVASTATIN 20 MG TABLET take 1 tablet by mouth once d* IBUPROFEN 600 MG TABLET Take 1 tablet by mouth every * BACTRIM ORAL Take by mouth. PROMETHAZINE-DM 6.25 MG-15 MG* Take 5 mL by mouth four times* ALBUTEROL SULFATE HFA 90 MCG/* Inhale 2 Puffs as instructed * COMPOUNDED PRESCRIPTION Powerstep Original Full Lengt* PROPRANOLOL 10 MG TABLET Take 1 tablet by mouth twice * Patient not taking: Reported on 09/10/2017 CEPHALEXIN 500 MG CAPSULE Take 1 capsule by mouth three* CYCLOBENZAPRINE 10 MG TABLET take 1 tablet by mouth once d* CHOLECALCIFEROL (VITAMIN D3) * Take 1 capsule by mouth once * BLOOD SUGAR DIAGNOSTIC STRIPS Test twice daily COMPOUNDED PRESCRIPTION powerstep orthotics Dx: post* CYCLOBENZAPRINE 10 MG TABLET Take 10 mg by mouth once clovis* POLYETHYLENE GLYCOL 3350 17 G* Take 17 g by mouth once daily* Patient not taking: Reported on 11/23/2017 BUDESONIDE 180 MCG/ACTUATION * Inhale 2 Puffs as instructed * Patient not taking: Reported on 09/10/2017 CHOLECALCIFEROL (VITAMIN D3) * Take 1 capsule by mouth once * CALCIUM CARBONATE 600 MG CALC* Take 1 tablet by mouth once d* Patient not taking: Reported on 11/23/2017 BLOOD SUGAR DIAGNOSTIC STRIPS Use for blood sugar testing o* LANCETS Test blood sugar once daily. Medication notes this encounter BACTRIM ORAL >> Dirk Olea, IBETH, RN 02/27/2018 12:58 PM >> DIRK OLEA SunFeb 27, 2018 12:58 PM Not taking- allergic PROMETHAZINE-DM 6.25 MG-15 MG/5 ML SYRUP >> Dirk Olea RN, RN 02/27/2018 12:58 PM >> DIRK OLEA SunFeb 27, 2018 12:58 PM Not taking CEPHALEXIN 500 MG CAPSULE >> Dirk Olea RN, RN 02/27/2018 12:57 PM >> DIRK OLEA SunFeb 27, 2018 12:57 PM Not taking CYCLOBENZAPRINE 10 MG TABLET >> Dirk Olea RN, RN 02/27/2018 12:58 PM >> DIRK OLEA SunFeb 27, 2018 12:58 PM Not taking CYCLOBENZAPRINE 10 MG TABLET >> Dirk Olea RN, RN 02/27/2018 12:58 PM >> DIRK OLEA SunFeb 27, 2018 12:58 PM Not taking Problem List As Of Date 02/27/2018 Noted Resolved Well controlled type 2 diabetes mellitus with n*INVALID FOR* More... Hyperlipidemia with target LDL less than 70 [E7*INVALID FOR* Chronic low back pain [M54.5, G89.29] INVALID FOR* Depression with anxiety [F41.8] INVALID FOR* More... Fibromyalgia [M79.7] INVALID FOR* Osteoporosis [M81.0] INVALID FOR* More... Tobacco abuse [Z72.0] INVALID FOR* Pain in limb [M79.609] INVALID FOR* Atrophic vaginitis [N95.2] INVALID FOR* Hallux valgus, acquired [M20.10] INVALID FOR* Suture reaction [T81.89XA] INVALID FOR*04/08/2015 Dyspareunia [NTV8136] INVALID FOR* Vitamin D deficiency [E55.9] INVALID FOR* Degenerative disc disease [FPI3142] INVALID FOR* Scoliosis [M41.9] INVALID FOR* Lumbar radiculopathy [M54.16] INVALID FOR* Spinal stenosis of lumbar region without neurog*INVALID FOR* Essential tremor [G25.0] INVALID FOR* Pyogenic inflammation of bone (HCC) [M86.9] INVALID FOR* Disposition: Return in about 3 months (around 05/28/2018) for L ankle instability. Follow-up and Disposition History Recorded Encounter Status:Closed by JACKELINE VARGAS DPM on 02/27/18 BEDSIDE GLUCOSE Collected: 02/11/2018 Status: F Source: [place] 11:27 AM [facility] REPOSITORY TYPE CODE TESTS RESULT OUT OF REFERENCE UNITS RANGE LAB L501.080 70-110 mg/dL High BEDSIDE GLU 149 Result Comment: MANAGEMENT OF PATIENT CARE PER NURSING PROTOCOL Performed By: #### L501.080 #### [facility] Point of Care [address] [place] [address] OPERATIVE REPORT Observed: 02/11/2018 Status: F Source: [place] 10:30 AM [facility] REPOSITORY [facility] Medical Records Department [address] [place] [address] Operative Report 02/11/18 1018 MR#: [id number] Acct: [id number] Name: YAMILEX MERCADO Rep #: [id number] : 1955 62 From: Carlitos Wood MD PCP: Ashli Silva Status: REG SDC Y Location: [place] [address] Report of Operation Date of Procedure: 02/11/18 Pre-Operative Diagnosis: left chronic sinusitis Post-Operative Diagnosis: same Surgery/Procedure Performed:: left total ethmoidectomy; left sphenoidectomy; left maxillary antrostomy; use of navigation Description of Surgical Findings:: thick inspissated mucous in the sphenoid and posterior ethmoid Type of Anesthesia:: General Anesthesiologist: Gaudencio Quiroga Specimen's removed: sinus contents Estimated Blood Loss (mL): minimal Description of Procedure: The patient was taken to the OR on 02/11/18. She was placed in the supine position on the OR table. She was given sufficient general endotracheal anesthesia. The head of bed was elevated 30 degrees. The navigation system was applied and registered per protocol and checked for anatomic correctness. A zero degree rigid nasal endoscope was used throughout the entire procedure. 1% lidocaine with epinephrine was injected into the middle turbinate, superior turbinate, uncinate, and ethmoid bulla. After sufficient vasoconstriction, the middle turbinate was medialized with a freer elevator. A ball tipped sinus seeker was inserted into the left maxillary sinus. A back biter was used to create a maxillary antrostomy. The uncinate was taken down using a microdebrider. The ethmoid bulla was opened with a curette. Anterior and posterior ethmoidectomy was carried out using a Blakesly- Wile forcep and sinus shaver. I then used navigation to verify the front face of the sphenoid. I popped through the front face of the sphenoid with the suction/navigation. I then opened the front face of the sphenoid with a sinus shaver medially. Thick inspissated secretions were removed with suction and Matlock-Wile forceps. Inflamed mucosa was removed with forceps as well. Hemostasis was achieved with afrin pledgets. Next, I used some suction cautery for some bleeding in the ethmoid cavity. Meliton was applied to some mucosal oozing which controlled the bleeding quite well. Once hemostasis was achieved the procedure was terminated. She was awoken and brought to the recovery room in stable condition. Blood loss minimal, replacement none. Sponge needle and instrument count were correct at the end of the procedure. 02/11/18 1030 <Electronically signed by Carlitos Wood MD> Date Carlitos Wood MD CC: Ashli Silva; Carlitos Wood MD Signed DISCHARGE INSTRUCTION Observed: 02/11/2018 Status: F Source: [place] 9:14 AM [facility] REPOSITORY [facility] Medical Records Department [address] [place] [address] Instructions for Home/Discharge Instructions 02/11/18911 MR#: [id number] Acct: [id number] Name: YAMILEX MERCADO Rep #: [id number] : 1955 62 From: Carlitos Wood MD PCP: Ashli Silva Status: REG [facility] You will use the following diet at home:: Regular Your food should be the consistency of: Regular Discharge Activity: Return to Normal Activity, - - No nose blowing until seen by MD Additional Dressing/Incision Instructions:: Start irrigation on 02/12/18. Irrigate 4x/day with saline. Allergies/Adverse Reactions: Allergies moxifloxacin HCl [From Avelox] Allergy (Verified 02/04/18 15:23) Other Penicillins Allergy (Verified 02/04/18 15:23) Nausea doxycycline Adverse Reaction (Verified 02/04/18 15:23) Nausea prednisone Adverse Reaction (Verified 02/04/18 15:23) Other MAKES ME FEEL WIERD AND i NEVER SHUT UP Medications to take at Discharge RX: Cholecalciferol (Vitamin D3) [Vitamin D3] 1,000 unit PO DAILY 07/31/13 RX: Metformin HCl [Glucophage] 850 mg PO BIDCM 07/31/13 RX: Paroxetine HCl [Paxil] 30 mg PO QHS 07/31/13 RX: Pravastatin [Pravachol] 20 mg PO QHS 07/31/13 Orders to be completed after discharge: 12 Lead EKG [CVS] Time Frame: 02/05/18, Location: None Selected Primary Care Physician: Ashli Silva PA [Primary Care Provider] - Test Results: Test results from this visit will be discussed in further detail at your follow-up appointment, if applicable. 02/11/18913 <Electronically signed by Carlitos Wood MD> Date Carlitos Wood MD CC: Ashli Silva BEDSIDE GLUCOSE Collected: 02/11/2018 Status: F Source: [place] 7:52 [facility] REPOSITORY TYPE CODE TESTS RESULT OUT OF REFERENCE UNITS RANGE LAB L501.080 70-110 mg/dL High BEDSIDE GLU 113 Result Comment: MANAGEMENT OF PATIENT CARE PER NURSING PROTOCOL Performed By: #### L501.080 #### [facility] Point of Care [address] [place] [address] ETHMOID TISSUE Observed: 02/11/2018 Status: F Source: [place] 12:00 AM [facility] REPOSITORY Patient: YAMILEX MERCADO : 1955 (62/F) Acct Num: [id number] Phys: Israel LANZA,Carlitos Unit Num: [id number] Loc: [facility] Specimen: [id number] Received: 02/11/181346 Spec Type: ETH TISS TISSUES 1 TISSUES: Ethmoid sinus, NOS COMMENT Inflammatory cell infiltrates also consists of numerous eosinophils. GROSS DESCRIPTION Received in fixative is one container labeled with the patient's name and designated left sinus contents. The specimen consists of multiple fragments of pink hemorrhagic soft tissue mixed with fragments of bone that in aggregate measure 3 x 2.5 x 0.3 cm. The entire specimen is submitted in one cassette after decalcification. / ARMINDA:sandy 02/11/18 TC:3 CPT: 38658, 95023, 44235 HEADER OPERATION: Endoscopic intranasal ethmoid, max, antrostomy, sphenoidectomy PRE-OP DIAGNOSIS: Chronic sinusitis TISSUE SUBMITTED: Left sinus contents MICROSCOPIC DESCRIPTION Slides are reviewed. MICROSCOPIC DIAGNOSIS Left sinus contents: Fragments of respiratory mucosa with chronic inflammation and bone. Special stain for fungi is negative for organisms; matched control is appropriate. See comment. ARMINDA:sandy 02/15/18 Signed Brandon Montiel 02/15/18 <signature on file> Performed By: #### PET #### [facility] [address] [place], [address] 12 LEAD ELECTROCARDIOGRAM Observed: 02/08/2018 Status: F Source: [place] 2:38 PM [facility] REPOSITORY [facility] Cardiovascular Services [address] [place] [address] 12 Lead EKG 02/05/18 1224 MR#: [id number] Acct: [id number] Name: YAMILEX MERCADO Rep #: [id number] : 1955 62 From: Trino Johnston MD Attending Dr: Carlitos Wood MD Status: PRE SDC Ordering Dr: Carlitos Wood MD Date: 02/05/18 Location: [facility] Sex: F C Admitted: Test Reason : PREOP Blood Pressure : / mmHG Vent. Rate : 066 BPM Atrial Rate : 066 BPM P-R Int : 154 ms QRS Dur : 094 ms QT Int : 406 ms P-R-T Axes : 037 022 064 degrees QTc Int : 425 ms Normal sinus rhythm Low voltage QRS Possible Lateral infarct , age undetermined Abnormal ECG Confirmed by VICKIE LANZA, TRINO ([id number]), news copy editor DONNA HOSKINS ([id number]) on 02/08/2018 2:38:23 PM Referred By: Carlitos Wood Confirmed By:TRINO JOHNSTON MD 02/08/18 1438 Date Trino Johnston MD CC: Ashli Silva; Carlitos Wood MD Signed HEMOGLOBIN A1C Collected: 02/05/2018 Status: F Source: [place] 12:09 PM [facility] REPOSITORY Order Comment: Reason for Laboratory Test PREOP TYPE CODE TESTS RESULT OUT OF RANGE REFERENCE UNITS LAB L501.9985 4.2-6.3 % Normal HGB A1C 5.9 Performed By: #### L501.9985 #### [facility] [address] [place], [address] CBC-COMPLETE BLOOD CNT Collected: 02/05/2018 Status: F Source: [place] NO DIFF 12:08 PM [facility] REPOSITORY Order Comment: Reason for Laboratory Test PREOP TYPE CODE TESTS RESULT OUT OF RANGE REFERENCE UNITS LAB L100.1000 4.4-11.0 K/mm3 Normal WBC 8.7 LAB L100.1200 4.2-5.4 M/mm3 Low RBC 4.19 LAB L100.1300 12.0-15.0 g/dl Normal HGB 12.6 LAB L100.1400 37-47 % Normal HCT 39.5 LAB L100.1500 81-99 fL Normal MCV 94.3 LAB L100.1600 27.0-32.0 pg Normal MCH 30.1 LAB L100.1700 32-36 g/gl Low MCHC 31.9 LAB L100.1810 11.6-14.6 % Normal RDW CV 13.9 LAB L100.1820 35.1-43.9 fl High RDW SD 46.2 LAB L100.1900 150-450 K/mm3 Normal PLT 212 LAB L100.2000 6.2-12.0 fl Normal MPV 11.4 Performed By: #### L100.0500 #### [facility] [address] [place], [place], [id number] PROTHROMBIN TIME W/INR Collected: 02/05/2018 Status: F Source: [place] 12:08 PM [facility] REPOSITORY Order Comment: Reason for Laboratory Test PREOP TYPE CODE TESTS RESULT OUT OF RANGE REFERENCE UNITS LAB L300.4150 11.7-14.9 SECONDS Normal PROTIME 13.2 LAB L300.4200 Normal INR 1.0 Performed By: #### L300.3900, L300.4310 #### [facility] [address] [place], [place], [id number] PARTIAL THROMBOPLAST Collected: 02/05/2018 Status: F Source: [place] TIME 12:08 PM [facility] REPOSITORY Order Comment: Reason for Laboratory Test PREOP TYPE CODE TESTS RESULT OUT OF RANGE REFERENCE UNITS LAB L300.4310 24.1-36.2 Seconds Normal PTT 32.1 Performed By: #### L300.3900, L300.4310 #### [facility] [address] [place], [place], [address] BASIC METABOLIC Collected: 02/05/2018 Status: F Source: [place] PROFILE (BMP) 12:08 PM [facility] REPOSITORY Order Comment: Reason for Laboratory Test PREOP TYPE CODE TESTS RESULT OUT OF RANGE REFERENCE UNITS LAB L501.0100 74-106 mg/dL Normal GLU 89 Result Comment: Please note revised GLUCOSE reference range effective 2017. LAB L501.1000 7-18 mg/dL Normal BUN 18 LAB L501.1100 0.55-1.02 mg/dL High CREAT,SERUM 1.21 Result Comment: The validity of the calculated GFR AND GFRAA in patients over 70 years has not been determined. Clinical correlation is essential. LAB L501.1110 >60 mL/min Low EST GFR 48 Result Comment: Non- GFR Calc LAB L501.1115 >60 mL/min Low EST GFR - AA 58 Result Comment: GFR Calc LAB L501.1300 10-20 RATIO Normal BUN/CRE 14.9 LAB L501.2200 8.5-10.1 mg/dL CA Normal 9.0 LAB L501.5300 136-145 mmol/L NA Normal 143 LAB L501.5600 3.5-5.1 mmol/L K Normal 4.3 LAB L501.5900 98-107 mmol/L CL Normal 107 LAB L501.6100 21.0-32.0 mmol/L Normal CO2 28.0 LAB L501.6200 5-15 Normal GAP 8 Performed By: #### L500.2500, L500.3400 #### [facility] [address] [place], [place], [id number] LIVER PROFILE Collected: 02/05/2018 Status: F Source: [place] 12:08 PM [facility] REPOSITORY Order Comment: Reason for Laboratory Test PREOP TYPE CODE TESTS RESULT OUT OF RANGE REFERENCE UNITS LAB L501.1500 6.4-8.2 g/dL Normal T PROT 7.7 LAB L501.1800 3.2-5.0 g/dL Normal ALB 3.7 LAB L501.1950 2.2-4.2 g/dL Normal GLOB 4.0 LAB L501.4100 15-37 U/L Normal AST 16 LAB L501.4305 45-117 U/L Normal ALK P 66 LAB L501.4405 13-56 U/L Normal ALT 22 LAB L501.4600 0.20-1.00 mg/dL Normal T BILI 0.30 LAB L501.4700 0.00-0.30 mg/dL Normal D BILI 0.09 Performed By: #### L500.2500, L500.3400 #### [facility] [address] [place], [address] Observed: 01/18/2018 Status: F Source: [place] CULTURE, NOSE 10:30 AM [facility] REPOSITORY Gram Stain Gram Stain Rare Red Blood Cells No organisms seen Nasoph. Cult No growth in 48 hours. Performed By: #### M100.0900 #### [facility] [address] [place], [address] SINUS/FACIAL BONE Observed: 01/15/2018 Status: F Source: [place] 1:19 PM [facility] REPOSITORY [facility] Imaging Services [address] [place] [address] Sinus/Facial Bone MR#: [id number] Acct: [id number] Name: YAMILEX MERCADO Rep #: [id number] : 1955 F 62 From: Nisha Reynaga MD PCP: Ashli Silva Status: REG CLI Study: Sinus/Facial Bone Date of Exam: 01/15/18 Exam# [id number] Ordering Dr: Carlitos Wood MD STUDY: CT MAXILLOFACIAL SINUSES REASON FOR EXAM: Female, 62 years old. Sinusitis, right- sided sinus surgery 5+ years ago. RADIATION DOSAGE (If Supplied By Facility): CTDIvol = ( 33.45 ) mGy, DLP = ( 797.27 ) mGycm TECHNIQUE: The patient was scanned in a multi detector CT scanner. High resolution axial imaging was performed without the administration of intravenous contrast material. Sagittal and coronal images were reconstructed. Individualized dose optimization techniques were used for this CT. COMPARISON: CT sinus noncontrast 08/07/2013. FINDINGS: There is new near [place] opacification of the posterior left ethmoid and sphenoid sinuses with central hyperattenuation. There are no air-fluid levels. FRONTAL SINUSES: Normal aeration, without mucosal inflammatory disease. ETHMOIDAL SINUSES: Normal aeration, without mucosal inflammatory disease. MAXILLARY SINUSES: Small focal low-attenuation lateral left maxillary sinus 0.4 cm, new since previous examination, possibly a small retention cyst.. Status post right medial antrectomy. SPHENOIDAL SINUSES: Mild mucosal thickening of the right sphenoid sinus which is smaller compared to the left side.. There is patency of the bilateral maxillary infundibuli with normal uncinate processes, ethmoid bullae, and hiatus semilunaris. Small conchae bullosa right middle turbinate with paradoxical curvature of the bilateral middle turbinate. Normal bilateral inferior turbinates. Normal midline nasal septum. There is patency of the bilateral nasal airways. The visualized osseous structures are normal. The visualized bilateral orbital contents are normal. Prominence of tissue along the tongue base left greater than right. There are degenerative changes of the upper cervical spine. The mandible and bilateral temporomandibular joints are intact. The bilateral mastoid air cells are clear. Pneumatization of the right petrous apex without change. Minimal hyperostosis frontal interna without change. CT/Sinus/Facial Bone IMPRESSION: 1. New near upon opacification posterior left ethmoid and left sphenoid sinus with central hyperattenuation likely chronic disease without air-fluid levels. No osseous destruction. 2. Suspect 3. Small left maxillary sinus pseudocyst. 4. Status post right medial antrectomy. 5. Fullness of the tongue base possible lymphoid hyperplasia. Direct visual correlation recommended. Electronically Signed: Nisha Reynaga MD at 3:03 EDT , Service support , CC: Ashli Silva; Carlitos Wood MD Air Shovel Operator: Signed VITAMIN D 25 HYDROXY Collected: 01/09/2018 Status: F Source: [place] 12:32 PM [facility] REPOS[facility] TYPE CODE TESTS RESULT OUT OF REFERENCE UNITS RANGE LAB VITD 31.0-80.0 ng/mL Vitamin D 25 33.2 Hydroxy Result Comment: Classification of 25 [place] Vitamin D status: Insufficiency/Moderate Deficiency: < or = 30 ng/mL Sufficiency/Optimal Levels: 31 to 80 ng/mL Toxicity: > 100 ng/mL Test performed by chemiluminescent immunoassay. Performed By: #### VITD #### [facility] [address] [place], [place] [address] XR ANKLE 3V AP/LAT/OBL Observed: 01/07/2018 Status: F Source: [facility] 3:[address] [facility] [place] REPOSITORY * * *Final Report* * * DATE OF EXAM: Jan 07 2018 3:47PM WRX [id number] - XR ANKLE 3V AP/LAT/OBL YANN / PROCEDURE REASON: multiple diagnoses * * * * Physician Interpretation * * * * HISTORY: 2-YEAR-OLD FEMALE WITH Chronic pain of left ankle Chronic pain of left ankle Chronic pain of right ankle Chronic pain of right ankle. Pt. states bilateral ankle pain throughout. No recent injury. TECHNIQUE: XR ANKLE 3V AP/LAT/OBL YANN Laterality: BILATERAL Number of different views (projections): 3 each COMPARISON: 08/22/2017 RESULT: Right ankle: Ankle mortise maintained. Enthesophytes about the medial malleolus. No fracture. Vascular callus occasions are present. Small enthesophyte on the calcaneus at the insertion Achilles tendon and plantar fascia. Left ankle: Evidence for remote healed fracture. Osteopenia. Again identified is a metabolic impregnated methacrylate phantom screw tracks. There is area of irregular sclerosis in the distal tibia which would be suspicious for a stress fracture however is unchanged compared to previous exam of 08/22/2017 and likely be a chronic stress fracture. The ankle mortise is maintained. No acute fracture. IMPRESSION: NO CHANGE COMPARED TO PREVIOUS EXAM ON THE RIGHT OR LEFT ANKLE. Air Shovel Operator: PSCB Transcribe Date/Time: Jan 08 2018 3:50P Dictated by : AIMEE CLARK MD This examination was interpreted and the report reviewed and electronically signed by: AIMEE CLARK MD on Jan 08 2018 3:54PM EST [id number] PROGRESS Observed: 01/07/2018 Status: COMPLETED Source: [place] 3:33 PM [facility] REPOSITORY HNO ID: [id number] Author: Bassam Orozco (Rt) Carol Ann Donald Service: (none) Author Type: Insurance Claims Clerk Type: Progress Notes Filed: 01/07/2018 3:48 PM Note Text: Radiology Service Progress Note PATIENT NAME: Yamilex Mercado DATE OF SERVICE: January 07, 2018 TIME: 3:33 PM PATIENT IDENTITY VERIFICATION COMPLETED USING TWO (2) METHODS: Patient confirmed name verbally and Date of . PATIENT GENDER DATA: Female. status: : No status: NO. PATIENT RELEVANT IMPLANT DATA REVIEWED: Not Applicable RADIOLOGY DEPARTMENT: General X-ray: Exam(s) Completed: Lower Extremity X-Ray(s): Ankle, Bilateral and Wt. Bearing: PERIPHERAL IV DATA: Not applicable SIGNED BY: RT Chago January 07, 2018 3:33 PM PROGRESS Observed: 01/07/2018 Status: COMPLETED Source: [place] 3:[address] [facility] [place] REPOSITORY HNO ID: [id number] Author: Connie Ruiz MA Service: (none) Author Type: (none) Type: Progress Notes Filed: 01/07/2018 9:46 PM Note Text: Per Yamilex Khan provided with a pair of powerstep full length originals, size 8.5 and instructed/educated in its application, wear, and care. All questions were answered, and patient was able to demonstrate competence with the necessary skills to utilize the above equipment. Connie Ruiz MA PROGRESS Observed: 01/07/2018 Status: COMPLETED Source: [place] 2:47 PM [facility] REPOSITORY HNO ID: [id number] Author: Jackeline Vargas Service: (none) Author Type: Physician Type: Progress Notes Filed: 01/07/2018 9:46 PM Note Text: Follow up podiatric office visit for: Chief Complaint: This 62 year old who presents for diabetic foot exam and b/l ankle pain Patient states her diabetes appears to be doing well. She states that her sugars were 104 this am. She does complain of burning to her feet, L>R. She does have diabetic shoes but she states that her shoes cause her ankle pain. She does complain of pain to her ankle. She states the ankles bother her along the lateral sinus tarsi. She states the pain in her ankles is only present when she is walking She continues to smoke and is smoking about 1 pack per day. She complains of painful toenails of b/l feet. PAIN EVALUATION 01/07/2018 Pain Score: 7 Pain Location: - b/l ankles Description: Aching;Burning Duration Amount of Time: 2 Duration Units: Months Frequency: Continuous Intervention: Medication Hemoglobin A1C Date Value Ref Range Status 09/05/2017 5.8 (H) 4.3 - 5.6 % Final PCP: Ashli Silva PA-C PAST MEDICAL HISTORY Diagnosis Date - Adjustment disorder with depressed mood - Kidney stones - Mixed hyperlipidemia Hyperlipidemia - Other and unspecified hyperlipidemia in the past - Type II or unspecified type diabetes mellitus without mention of complication, not stated as uncontrolled Current Outpatient Prescriptions: sulfamethoxazole/trimethoprim (BACTRIM ORAL) Take by mouth. metFORMIN (GLUCOPHAGE) 850 mg tablet take 1 tablet by mouth twice a day with meals PARoxetine (PAXIL) 40 mg tablet take 1 tablet by mouth once daily pravastatin (PRAVACHOL) 20 mg tablet take 1 tablet by mouth once daily at bedtime ibuprofen (MOTRIN) 600 mg tablet Take 1 tablet by mouth every 8 hours as needed. Promethazine-DM (PHENERGAN-DM) 6.25-15 mg/5 mL syrup Take 5 mL by mouth four times daily as needed. albuterol HFA (VENTOLIN HFA) 90 mcg/actuation inhaler Inhale 2 Puffs as instructed every 4 hours as needed for Wheezing/Shortness of Breath. COMPOUNDED PRESCRIPTION Powerstep Original Full Length` propranolol (INDERAL) 10 mg tablet Take 1 tablet by mouth twice daily. (Patient not taking: Reported on 09/10/2017 ) cephALEXin (KEFLEX) 500 mg capsule Take 1 capsule by mouth three times daily. cyclobenzaprine (FLEXERIL) 10 mg tablet take 1 tablet by mouth once daily Cholecalciferol, Vitamin D3, 5,000 unit cap Take 1 capsule by mouth once daily. blood sugar diagnostic (BLOOD GLUCOSE TEST) test strip Test twice daily COMPOUNDED PRESCRIPTION powerstep orthoticsDx: posterior tibial tendon dysfunction flatfoot cyclobenzaprine (FLEXERIL) 10 mg tablet Take 10 mg by mouth once daily. polyethylene glycol 3350 (MIRALAX) 17 gram/dose powder Take 17 g by mouth once daily. For constipation from narcotics. (Patient not taking: Reported on 11/23/2017 ) budesonide (PULMICORT FLEXHALER) 180 mcg/actuation aepb Inhale 2 Puffs as instructed twice daily. (Patient not taking: Reported on 09/10/2017 ) Cholecalciferol, Vitamin D3, 2,000 unit cap Take 1 capsule by mouth once daily. calcium carbonate (CALTRATE) 600 mg (1,500 mg) tab Take 1 tablet by mouth once daily. (Patient not taking: Reported on 11/23/2017 ) blood sugar diagnostic (ACCU-CHEK JIMMIE) test strip Use for blood sugar testing once daily and as needed, 250.00 Lancets (ACCU-CHEK MULTICLIX LANCET) [facility] [place] Test blood sugar once daily. No current facility-administered medications for this visit. ALLERGIES Allergen Reactions - Ampicillin GI Upset Intolerance, can take cephalosporins - Avelox [Moxifloxaci* Mental Status Change - Bactrim [Sulfametho* Vomiting - Doxycycline GI Upset - Steroids [Corticost* Other: See Comments Anxiety, jittery and head feels funny PAST SURGICAL HISTORY Procedure Laterality Date - APPENDECTOMY - ESWL kidney stones - PAST SURGICAL HISTORY OF tubal preg - PAST SURGICAL HISTORY OF remote left leg/ ankle with plates and screws - PAST SURGICAL HISTORY OF 11/29/2011 Bunion Removed - REMOVAL GALLBLADDER - REMOVAL OF OVARY(S) bilaterally with hysterectomy - TOTAL ABD HYSTERECTOMY+BLAD REPR REVIEW OF SYSTEMS: CONSTITUTIONAL: No fevers, chills, nightsweats, unintended weight loss HEENT: Denies frequent or severe heaches, nasal congestion/sinus symptoms, problematic allergy problems. EYES: No diplopia or blurry vision. CARDIOVASCULAR: No chest pain, dyspnea, palpitations, orthopnea, PND, ankle edema. PULM: No dyspnea, unexplained cough. GI: No dysphagia/odynophagia, problematic reflux, constipation, diarrhea, changes in stool habits, hematochezia, melena. : No new urinary complaints, including dysuria, gross hematuria or pyuria. NEURO: No new balance problems, peripheral weakness/paresthesias or numbness of concern. MUSC-SKEL: Ankle pain. PSY: No concerns regarding depression, anxiety or panic. INTEGUMENTARY: No new skin changes (rash, new or changing mole, new growth) Physical Exam: Constitutional: Pt is a well developed 62 year old female who is alert, oriented, cooperative and in no apparent distress. OBJECTIVE: Vascular: DP and PT pulses are palpable b/l. cft is less than 5 seconds. Skin temperature is warm to warm Neuro: Protective sensation is decreased to b/l feet Dermatological: Nails 1-5 b/l are thick, discolored painful. Webspaces clean and dry 1-4 b/l. Skin appears well hydrated and supple. good color, texture, turgor. No open lesions present. No callosities present. Musculoskeletal/Orthopaedic: Patient has pain to palpation of lateral sinus tarsi of b/l feet There is mild flat foot deformity of b/l feet ASSESSMENT: (M25.572, G89.29) Chronic pain of left ankle (primary encounter diagnosis) (M25.571, G89.29) Chronic pain of right ankle (M21.41, M21.42) Pes planus of both feet (B35.1) Onychomycosis (M79.675) Pain in toe of left foot (M79.674) Pain in toe of right foot (E11.49) Other diabetic neurological complication associated with type 2 diabetes mellitus (HCC) PLAN: 1. History and physical examination completed today. 2. Discussed pain of b/l ankles. Discussed component of pain of lateral sinus tarsi due to flattening of arch causing lateral impingement. Discussed options for flatfoot not limited to bracing, inserts. Discussed powersteps. Patient was given powersteps. Discussed injection of lateral sinus tarsi. She declined. 3. Discussed history of left ankle osteomyelitis. Will check xrays of b/l ankles. She has no pain at site of prior cement spacer. 4. Toenails 1-5 b/l debrided in length and thickness 5. Discussed pain of b/l lower extremity. Patient has used ultram in past. Will prescribe her ultram. 6. Will check vitamin d levels. She will continue with vitamin d 5,000 units daily. 7. F/u in 5 weeks for ankle pain. Jackeline Vargas DPM PROGRESS Observed: 01/07/2018 Status: COMPLETED Source: [place] 2:[address] [facility] REPOSITORY [facility] ID: [id number] Author: Connie Ruiz MA Service: (none) Author Type: (none) Type: Progress Notes Filed: 01/07/2018 9:46 PM Note Text: AMB ROOMING INTAKE FLOWSHEET DATA Risk Screening Do you have concerns about personal safety or safety in the home?: No Pain Pain Score: 7/10 Pain Location: (b/l ankles) Description: Aching, Burning Duration Amount of Time: 2 Duration Units: Months Frequency: Continuous Intervention: Medication Patient is here for 3 month diabetic foot care. Patient states pain is 7/10 when wearing shoes, burning, aching in b/l ankles. Patient states she takes Ibuprofen 600 mg 2 daily. Patient reports home blood glucose reading at 104 mg/dL this am. Patient states is a Smoker. Connie Ruiz MA CNOV Observed: 01/07/2018 Status: COMPLETED Source: [place] 2:25 PM [facility] REPOSITORY Office Visit (PODIWS) YAMILEX MERCADO ([id number]) 1955 F Date Time Provider Department 01/07/18 2:25 PM JACKELINE VARGAS PODIWS During your visit today, we recorded the following information about you: Connie Ruiz HARIS 01/07/2018 9:46 PM Signed AMB ROOMING INTAKE FLOWSHEET DATA Risk Screening Do you have concerns about personal safety or safety in the home?: No Pain Pain Score: 7/10 Pain Location: (b/l ankles) Description: Aching, Burning Duration Amount of Time: 2 Duration Units: Months Frequency: Continuous Intervention: Medication Patient is here for 3 month diabetic foot care. Patient states pain is 7/10 when wearing shoes, burning, aching in b/l ankles. Patient states she takes Ibuprofen 600 mg 2 daily. Patient reports home blood glucose reading at 104 mg/dL this am. Patient states is a Smoker. Conniesa Sara Vargas DPM 01/07/2018 9:46 PM Signed Follow up podiatric office visit for: Chief Complaint: This 62 year old who presents for diabetic foot exam and b/l ankle pain Patient states her diabetes appears to be doing well. She states that her sugars were 104 this am. She does complain of burning to her feet, L>R. She does have diabetic shoes but she states that her shoes cause her ankle pain. She does complain of pain to her ankle. She states the ankles bother her along the lateral sinus tarsi. She states the pain in her ankles is only present when she is walking She continues to smoke and is smoking about 1 pack per day. She complains of painful toenails of b/l feet. PAIN EVALUATION 01/07/2018 Pain Score: 7 Pain Location: - b/l ankles Description: Aching;Burning Duration Amount of Time: 2 Duration Units: Months Frequency: Continuous Intervention: Medication Hemoglobin A1C Date Value Ref Range Status 09/05/2017 5.8 (H) 4.3 - 5.6 % Final PCP: Ashli Silva PA-C PAST MEDICAL HISTORY Diagnosis Date - Adjustment disorder with depressed mood - Kidney stones - Mixed hyperlipidemia Hyperlipidemia - Other and unspecified hyperlipidemia in the past - Type II or unspecified type diabetes mellitus without mention of complication, not stated as uncontrolled Current Outpatient Prescriptions: sulfamethoxazole/trimethoprim (BACTRIM ORAL) Take by mouth. metFORMIN (GLUCOPHAGE) 850 mg tablet take 1 tablet by mouth twice a day with meals PARoxetine (PAXIL) 40 mg tablet take 1 tablet by mouth once daily pravastatin (PRAVACHOL) 20 mg tablet take 1 tablet by mouth once daily at bedtime ibuprofen (MOTRIN) 600 mg tablet Take 1 tablet by mouth every 8 hours as needed. Promethazine-DM (PHENERGAN-DM) 6.25-15 mg/5 mL syrup Take 5 mL by mouth four times daily as needed. albuterol HFA (VENTOLIN HFA) 90 mcg/actuation inhaler Inhale 2 Puffs as instructed every 4 hours as needed for Wheezing/Shortness of Breath. COMPOUNDED PRESCRIPTION Powerstep Original Full Length` propranolol (INDERAL) 10 mg tablet Take 1 tablet by mouth twice daily. (Patient not taking: Reported on 09/10/2017 ) cephALEXin (KEFLEX) 500 mg capsule Take 1 capsule by mouth three times daily. cyclobenzaprine (FLEXERIL) 10 mg tablet take 1 tablet by mouth once daily Cholecalciferol, Vitamin D3, 5,000 unit cap Take 1 capsule by mouth once daily. blood sugar diagnostic (BLOOD GLUCOSE TEST) test strip Test twice daily COMPOUNDED PRESCRIPTION powerstep orthoticsDx: posterior tibial tendon dysfunction flatfoot cyclobenzaprine (FLEXERIL) 10 mg tablet Take 10 mg by mouth once daily. polyethylene glycol 3350 (MIRALAX) 17 gram/dose powder Take 17 g by mouth once daily. For constipation from narcotics. (Patient not taking: Reported on 11/23/2017 ) budesonide (PULMICORT FLEXHALER) 180 mcg/actuation aepb Inhale 2 Puffs as instructed twice daily. (Patient not taking: Reported on 09/10/2017 ) Cholecalciferol, Vitamin D3, 2,000 unit cap Take 1 capsule by mouth once daily. calcium carbonate (CALTRATE) 600 mg (1,500 mg) tab Take 1 tablet by mouth once daily. (Patient not taking: Reported on 11/23/2017 ) blood sugar diagnostic (ACCU-CHEK JIMMIE) test strip Use for blood sugar testing once daily and as needed, 250.00 Lancets (ACCU-CHEK MULTICLIX LANCET) Misc lancets Test blood sugar once daily. No current facility-administered medications for this visit. ALLERGIES Allergen Reactions - Ampicillin GI Upset Intolerance, can take cephalosporins - Avelox [Moxifloxaci* Mental Status Change - Bactrim [Sulfametho* Vomiting - Doxycycline GI Upset - Steroids [Corticost* Other: See Comments Anxiety, jittery and head feels funny PAST SURGICAL HISTORY Procedure Laterality Date - APPENDECTOMY - ESWL kidney stones - PAST SURGICAL HISTORY OF tubal preg - PAST SURGICAL HISTORY OF remote left leg/ ankle with plates and screws - PAST SURGICAL HISTORY OF 11/29/2011 Bunion Removed - REMOVAL GALLBLADDER - REMOVAL OF OVARY(S) bilaterally with hysterectomy - TOTAL ABD HYSTERECTOMY+BLAD REPR REVIEW OF SYSTEMS: CONSTITUTIONAL: No fevers, chills, nightsweats, unintended weight loss HEENT: Denies frequent or severe heaches, nasal congestion/sinus symptoms, problematic allergy problems. EYES: No diplopia or blurry vision. CARDIOVASCULAR: No chest pain, dyspnea, palpitations, orthopnea, PND, ankle edema. PULM: No dyspnea, unexplained cough. GI: No dysphagia/odynophagia, problematic reflux, constipation, diarrhea, changes in stool habits, hematochezia, melena. : No new urinary complaints, including dysuria, gross hematuria or pyuria. NEURO: No new balance problems, peripheral weakness/paresthesias or numbness of concern. MUSC-SKEL: Ankle pain. PSY: No concerns regarding depression, anxiety or panic. INTEGUMENTARY: No new skin changes (rash, new or changing mole, new growth) Physical Exam: Constitutional: Pt is a well developed 62 year old female who is alert, oriented, cooperative and in no apparent distress. OBJECTIVE: Vascular: DP and PT pulses are palpable b/l. cft is less than 5 seconds. Skin temperature is warm to warm Neuro: Protective sensation is decreased to b/l feet Dermatological: Nails 1-5 b/l are thick, discolored painful. Webspaces clean and dry 1-4 b/l. Skin appears well hydrated and supple. good color, texture, turgor. No open lesions present. No callosities present. Musculoskeletal/Orthopaedic: Patient has pain to palpation of lateral sinus tarsi of b/l feet There is mild flat foot deformity of b/l feet ASSESSMENT: (M25.572, G89.29) Chronic pain of left ankle (primary encounter diagnosis) (M25.571, G89.29) Chronic pain of right ankle (M21.41, M21.42) Pes planus of both feet (B35.1) Onychomycosis (M79.675) Pain in toe of left foot (M79.674) Pain in toe of right foot (E11.49) Other diabetic neurological complication associated with type 2 diabetes mellitus (HCC) PLAN: 1. History and physical examination completed today. 2. Discussed pain of b/l ankles. Discussed component of pain of lateral sinus tarsi due to flattening of arch causing lateral impingement. Discussed options for flatfoot not limited to bracing, inserts. Discussed powersteps. Patient was given powersteps. Discussed injection of lateral sinus tarsi. She declined. 3. Discussed history of left ankle osteomyelitis. Will check xrays of b/l ankles. She has no pain at site of prior cement spacer. 4. Toenails 1-5 b/l debrided in length and thickness 5. Discussed pain of b/l lower extremity. Patient has used ultram in past. Will prescribe her ultram. 6. Will check vitamin d levels. She will continue with vitamin d 5,000 units daily. 7. F/u in 5 weeks for ankle pain. JESUS Ulrich RN 01/07/2018 3:03 PM Signed [place] Please call to schedule appointment [place] [address], [facility] [address] PH: [phone] [place] [address], [facility] [address] PH: [phone] [place] [address], [place] [address] PH: [phone] [place] [address], [place] [address] PH: [phone] or [phone] [place] [address], [facility] [address] PH: [phone] [place] [address], [facility] [address] PH: [phone] Connie Ruiz MA 01/07/2018 9:46 PM Signed Per Yamilex Khan provided with a pair of powerstep full length originals, size 8.5 and instructed/educated in its application, wear, and care. All questions were answered, and patient was able to demonstrate competence with the necessary skills to utilize the above equipment. Connie Ruiz MA Referring Provider: SELF [[id number]] Allergies As of Date: 01/07/2018 Noted Allergy Reaction AMPICILLIN 12/17/2006 8 - GI Upset Comments: Intolerance, can take cephalosporins AVELOX (MOXIFLOXACIN HCL) 09/21/2010 1 - Mental Status Change BACTRIM (SULFAMETHOXAZOLE-TRIMETH*03/05/2017 11 - Vomiting DOXYCYCLINE 12/17/2006 8 - GI Upset STEROIDS (CORTICOSTEROIDS (GLUCOC*12/12/2013 14 - Other: See Comments Comments: Anxiety, jittery and head feels funny Date Reviewed: 01/07/2018 Reviewed by: Connie Ruiz MA - Fully Assessed Reason for Visit: Follow Up [171] Primary Visit Diagnosis:Chronic pain of left ankle [M25.572, G89.29] Other Visit Diagnoses:Chronic pain of right ankle [M25.571, G89.29] Pes planus of both feet [M21.41, M21.42] Onychomycosis [B35.1] Pain in toe of left foot [M79.675] Pain in toe of right foot [M79.674] Other diabetic neurological complication associated with type 2 diabetes mellitus (HCC) [E11.49] Order(s):XR ANKLE GENERAL 3V AP/LAT/OBL BILAT [[id number]] Order #: [id number] FUTURE DIAB SHOE FOR DENSITY INSERT [[id number]] Order #: [id number] traMADol (ULTRAM) 50 mg tabletTake 1 tablet by mouth every 8 hours as needed for up to 7 days.Disp: 30 tabletRfl: 0 cholecalciferol (VITAMIN D3) 5,000 unit tabTake 1 tablet by mouth once daily.Disp: 30 tabletRfl: 3 VITAMIN D 25 HYDROXY [SQVITD] Order #: [id number] FUTURE Prescriptions as of 01/07/2018 Sig: BACTRIM ORAL Take by mouth. TRAMADOL 50 MG TABLET Take 1 tablet by mouth every * CHOLECALCIFEROL (VITAMIN D3) * Take 1 tablet by mouth once d* METFORMIN 850 MG TABLET take 1 tablet by mouth twice * PAROXETINE 40 MG TABLET take 1 tablet by mouth once d* PRAVASTATIN 20 MG TABLET take 1 tablet by mouth once d* IBUPROFEN 600 MG TABLET Take 1 tablet by mouth every * PROMETHAZINE-DM 6.25 MG-15 MG* Take 5 mL by mouth four times* ALBUTEROL SULFATE HFA 90 MCG/* Inhale 2 Puffs as instructed * COMPOUNDED PRESCRIPTION Powerstep Original Full Lengt* PROPRANOLOL 10 MG TABLET Take 1 tablet by mouth twice * Patient not taking: Reported on 09/10/2017 CEPHALEXIN 500 MG CAPSULE Take 1 capsule by mouth three* CYCLOBENZAPRINE 10 MG TABLET take 1 tablet by mouth once d* CHOLECALCIFEROL (VITAMIN D3) * Take 1 capsule by mouth once * BLOOD SUGAR DIAGNOSTIC STRIPS Test twice daily COMPOUNDED PRESCRIPTION powerstep orthotics Dx: post* CYCLOBENZAPRINE 10 MG TABLET Take 10 mg by mouth once clovis* POLYETHYLENE GLYCOL 3350 17 G* Take 17 g by mouth once daily* Patient not taking: Reported on 11/23/2017 BUDESONIDE 180 MCG/ACTUATION * Inhale 2 Puffs as instructed * Patient not taking: Reported on 09/10/2017 CHOLECALCIFEROL (VITAMIN D3) * Take 1 capsule by mouth once * CALCIUM CARBONATE 600 MG CALC* Take 1 tablet by mouth once d* Patient not taking: Reported on 11/23/2017 BLOOD SUGAR DIAGNOSTIC STRIPS Use for blood sugar testing o* LANCETS Test blood sugar once daily. Problem List As Of Date 01/07/2018 Noted Resolved Well controlled type 2 diabetes mellitus with n*INVALID FOR* More... Hyperlipidemia with target LDL less than 70 [E7*INVALID FOR* Chronic low back pain [M54.5, G89.29] INVALID FOR* Depression with anxiety [F41.8] INVALID FOR* More... Fibromyalgia [M79.7] INVALID FOR* Osteoporosis [M81.0] INVALID FOR* More... Tobacco abuse [Z72.0] INVALID FOR* Pain in limb [M79.609] INVALID FOR* Atrophic vaginitis [N95.2] INVALID FOR* Hallux valgus, acquired [M20.10] INVALID FOR* Suture reaction [T81.89XA] INVALID FOR*04/08/2015 Dyspareunia [ZAB7069] INVALID FOR* Vitamin D deficiency [E55.9] INVALID FOR* Degenerative disc disease [YNE4180] INVALID FOR* Scoliosis [M41.9] INVALID FOR* Lumbar radiculopathy [M54.16] INVALID FOR* Spinal stenosis of lumbar region without neurog*INVALID FOR* Essential tremor [G25.0] INVALID FOR* Pyogenic inflammation of bone (HCC) [M86.9] INVALID FOR* Other instructions from your clinician: Greyson Apakauruby Please call to schedule appointment [place] [address] [facility], [facility] [address] PH: [phone] [place] [address] [facility] [address], [facility] [address] PH: [phone] [place] [address] [facility] [address] PH: [phone] [place] [address] [facility] [address] PH: [phone] or [phone] [place] [address] [facility] [facility] [address] PH: [phone] [place] [address] [facility] [address] PH: [phone] Prescriptions ordered this encounter Disp Refills Start End TRAMADOL 50 MG TABLET 30 t* 0 01/07/2018 01/14/2018 Class: Print RX Route: ORAL Sig: Take 1 tablet by mouth every 8 hours as needed for up to 7 days. CHOLECALCIFEROL (VITAMIN D3) 5,000 U* 30 t* 3 01/07/2018 02/06/2018 Route: ORAL Sig: Take 1 tablet by mouth once daily. Disposition: Return in about 6 weeks (around 02/18/2018) for ankle pain. Follow-up and Disposition History Recorded Encounter Status:Closed by JACKELINE VARGAS DPM on 01/07/18 PROGRESS Observed: 12/20/2017 Status: COMPLETED Source: [place] 2:38 PM [facility] RE[facility]IT[facility] ID: [id number] Author: Antonella (Pt) Isaac Service: (none) Author Type: Physical Therapist Type: Progress Notes Filed: 12/24/2017 11:19 AM Note Text: Episode Visit Count: 1 Therapist That Will Oversee The Plan Of Care: Antonlela Gray PT Start of Care Date: 12/20/17 Onset Date: 12/20/97 Plan of Care Certification Date: 12/20/17 Patient Identified by Name and Date of : Yes REHABILITATION AND SPORTS THERAPY PHYSICAL THERAPY EVALUATION PLAN OF CARE: Assessment: Yamilex Mercado presents with the diagnosis of spinal stenosis of lumbar region without neurogenic claudication, osteoporosis, fibromyalgia, and depression/anxiety. She presents with impairments of decreased LE strength, increased scores on TUG and STS, and difficulty with getting up from a chair, walking, and performing steps. She may benefit from skilled therapy services to improve strength and scores on functional performance tests (i.e. TUG and STS) to help her improve getting up from a chair, walking, and steps. Patient at high risk for prolonged disability due to sub score of 4 on the STarT Back Screening Tool. Classification Low Back Pain Subgroup Classification: Graded activity subgroup: recommended visits 12. Graded Activity Subgroup Classification based on: disproportionate pain;maladaptive psychosocial factors Prognosis: Fair Fair due to: clinical presentation;multiple co- morbidities;chronic nature of impairments;coping skills Goals for Episode of Care: created on 12/20/17 through 03/18/18 [place] in home exercise program. Patient will decrease pain rating by 2 points to meet minimal clinical important difference for numeric pain rating scale. (Goal: 5/10) Patient will increase strength of B LEs to 5/5 to allow for perform ADLs and negotiate stairs. Demonstrate improvement on functional score: Improve Modified Oswestry Pain Questionnaire (LBP) by 6 points (12%) to indicate a Minimal Clinical Important Difference. (Goal: 42%) Reciprocal stair negotiation. Patient will report being able to walk inside her home without increase in pain in her low back. Patient will decrease time on TUG to 8 sec to decrease her risk of falls. Patient will decrease her 5xSTS to 11 sec to decrease her risk of falls. G CODE REPORTING Based on clinical assessment and the score on the Oswestry Assessment Tool, the G code and corresponding severity modifiers are documented below. Evaluation: 12/20/2017 Current Status: Mobility: Walking and Moving Around: G8978 CK 40-59% impaired Goal Status: Mobility: Walking and Moving Around: G8979 CK 40-59% impaired Planned Interventions, Frequency, and Duration: Current Frequency: 2x/week Duration: 8 weeks Total Number of Visits Planned: 17 Planned Treatment Interventions: Therapeutic exercise;Patient/Family/Caregiver Education;Self-fdc management;General Conditioning;Functional training PLAN FOR NEXT VISIT: SciFit, LE strengthening following graded activity due to chonic nature of impairments. AVOID flexion exercises d/t osteoprosis. Core strengthening. Patient demonstrates fair understanding of plan of care and treatment. The above goals and plan of care were discussed and agreed upon by patient/family. SUBJECTIVE: Yamilex Mercado is a 62 year old female seen today for Has had low back pain for years. Has scoliosis and stenosis of the spine. 3 surgeries on L ankle and is expecting to have another surgery on the L ankle. She had a rxn to the disovlable stitches in her ankle, so put a cement disc in with antibiotic. Has used mm relaxors and vicodin for her pain. Went to see Dr. Ruiz who wanted to give her cortisone shots, so she fired him because the shots were not helping. Difficult to get up from a chair. Has had near falls but has not fallen. 3x a week home health aid comes in to help with light house work. Patient feels best sitting at table to croche. Patient has sleeped in her lazy boy chair for over a year. Functional Limitations: (getting up from a chair, bending, walking, steps) Prior Level of Function: Independent with restrictions Patient Goals: get a little stronger and delay getting into a w/c Intake Information: Prescription present Previous Treatment: Pain meds?;Pain Management? Falls Interview: No positive findings with falls interview Home Environment Patient Lives With: Self/Alone Home Type: (wefafi-jy-fvv suit) Red Flags Vertebral Fracture Red Flags: Female Vertebral Fracture Clinical Reasoning: Proceed with caution due to the above (1-2) risk factors Abdominal Aortic Aneurysm Clinical Reasoning: No identified risk factors. Cancer Clinical Reasoning: No identified risk factors. Infection Clinical Reasoning: No identified risk factors. Cauda Equina Syndrome Clinical Reasoning: No identified risk factors. Red Flags - Cervical Cancer Clinical Reasoning: No identified risk factors. Infection Clinical Reasoning: No identified risk factors. Pain Score: 7/10 Pain Location: Low Back/Lumbar Spine - Left;Leg - Left;Ankle - Left Description: (just a pain) Frequency: Continuous Post Treatment Pain Score: No Change OBJECTIVE MEASURES WITH LEVEL OF FUNCTION: Posture / Alignment Posture: Forward head;Rounded shoulders;Elevated shoulder - right Lumbo - Pelvic Alignment: R hip is higher than the L LE AROM L Ankle Dorsiflexion: (to neutral) L Ankle Plantar Flexion: 10 Degrees L Ankle Inversion: 5 L Ankle Eversion: 10 LE Flexibility Flexibility: Hamstring Flexibility;Straight Leg Raise R Hamstring Flexibility: 70 L Hamstring Flexibility: 70 LE Strength Trunk Strength: 3/5 R Hip Flexion (L2): 3+/5 R Hip ABduction: 3+/5 R Hip ADduction: 3+/5 R Knee Extension (L3): 4+/5 R Knee Flexion: 4+/5 L Hip Flexion (L2): 3+/5 L Hip ABduction: 3+/5 L Hip ADduction: 3+/5 L Knee Extension (L3): 4-/5 (pain in L low back) L Knee Flexion: 4+/5 Special Tests - Hip and Spine Hip and Spine Special Tests: SLR Test SLR Test: Left Negative;Right Negative 5 Times Sit to Stand Test : 25 sec Timed Up and Go (sec): 17 sec Sitting up from table got dizzy Education: Education Learning Preferences: Demonstration;Explanation;Printed Materials Barriers: Emotions Learning/educational needs: Plan of Care;Home exercise program Education Provided: Yes, see treatment interventions for education provided Education Provided To: Patient Education Mode/Type: Demonstration;Explanation/Discussion;Literature/Printed Materials;Performance Response to Education/Teach Back: Return Demonstration;Requires Review/Additional Education TREATMENT: Evaluation Therapeutic Exercise: 1: To continue to use a lumbar roll when sitting in chairs and when driving in car to help provide support to her low back 2: *Shoulder blade Squeezes x10 3: *Shoulder rolls x10 Skilled Intervention: Patient was educated in proper exercise technique and purpose for exercises. Reviewed and educated patient on additions/changes for home exercise program as above (*) Skilled judgment was provided in selection of appropriate interventions. Provided written instruction for home exercise program to facilitate proper performance and compliance. Billing: [facility]: Evaluation - Moderate Complexity (77862) Therapeutic Exercise (18869): 1:1 time: 10 minutes (1 unit: 8-22 mins) Total time: 40 minutes Antonella Gray PT CNTHERAPY Observed: 12/20/2017 Status: COMPLETED Source: [place] 2:00 PM [facility] REPOSITORY OT/PT/Speech Visit (PTWS) YAMILEX MERCADO ([id number]) 1955 F Date Time Provider Department 12/20/17 2:00 PM ANTONELLA GRAY (PT) PTWS Date Time Provider Department Center 12/20/2017 2:00 PM [id number], DIANA (PT)PTWS [facility] Reason for Visit: PT Eval [667] Patient Education [91] Primary Visit Diagnosis:Spinal stenosis of lumbar region without neurogenic claudication [M48.061] Other Visit Diagnoses:Osteoporosis, unspecified osteoporosis type, unspecified pathological fracture presence [M81.0] Fibromyalgia [M79.7] Depression with anxiety [F41.8] Allergies As of Date: 12/20/2017 Noted Allergy Reaction AMPICILLIN 12/17/2006 8 - GI Upset Comments: Intolerance, can take cephalosporins AVELOX (MOXIFLOXACIN HCL) 09/21/2010 1 - Mental Status Change BACTRIM (SULFAMETHOXAZOLE-TRIMETH*03/05/2017 11 - Vomiting DOXYCYCLINE 12/17/2006 8 - GI Upset STEROIDS (CORTICOSTEROIDS (GLUCOC*12/12/2013 14 - Other: See Comments Comments: Anxiety, jittery and head feels funny Date Reviewed: 12/07/2017 Reviewed by: Abby Boss LPN - Fully Assessed Prescriptions as of 12/20/2017 Sig: PAROXETINE 40 MG TABLET take 1 tablet by mouth once d* PRAVASTATIN 20 MG TABLET take 1 tablet by mouth once d* IBUPROFEN 600 MG TABLET Take 1 tablet by mouth every * PROMETHAZINE-DM 6.25 MG-15 MG* Take 5 mL by mouth four times* ALBUTEROL SULFATE HFA 90 MCG/* Inhale 2 Puffs as instructed * COMPOUNDED PRESCRIPTION Powerstep Original Full Lengt* PROPRANOLOL 10 MG TABLET Take 1 tablet by mouth twice * Patient not taking: Reported on 09/10/2017 CEPHALEXIN 500 MG CAPSULE Take 1 capsule by mouth three* CYCLOBENZAPRINE 10 MG TABLET take 1 tablet by mouth once d* CHOLECALCIFEROL (VITAMIN D3) * Take 1 capsule by mouth once * METFORMIN 850 MG TABLET take 1 tablet by mouth twice * BLOOD SUGAR DIAGNOSTIC STRIPS Test twice daily COMPOUNDED PRESCRIPTION powerstep orthotics Dx: post* CYCLOBENZAPRINE 10 MG TABLET Take 10 mg by mouth once clovis* POLYETHYLENE GLYCOL 3350 17 G* Take 17 g by mouth once daily* Patient not taking: Reported on 11/23/2017 BUDESONIDE 180 MCG/ACTUATION * Inhale 2 Puffs as instructed * Patient not taking: Reported on 09/10/2017 CHOLECALCIFEROL (VITAMIN D3) * Take 1 capsule by mouth once * CALCIUM CARBONATE 600 MG CALC* Take 1 tablet by mouth once d* Patient not taking: Reported on 11/23/2017 BLOOD SUGAR DIAGNOSTIC STRIPS Use for blood sugar testing o* LANCETS Test blood sugar once daily. Progress Notes: Antonella Gray PT 12/24/2017 11:19 AM Signed Episode Visit Count: 1 Therapist That Will Oversee The Plan Of Care: Antonella Gray PT Start of Care Date: 12/20/17 Onset Date: 12/20/97 Plan of Care Certification Date: 12/20/17 Patient Identified by Name and Date of : Yes REHABILITATION AND SPORTS THERAPY PHYSICAL THERAPY EVALUATION PLAN OF CARE: Assessment: Yamilex Mercado presents with the diagnosis of spinal stenosis of lumbar region without neurogenic claudication, osteoporosis, fibromyalgia, and depression/anxiety. She presents with impairments of decreased LE strength, increased scores on TUG and STS, and difficulty with getting up from a chair, walking, and performing steps. She may benefit from skilled therapy services to improve strength and scores on functional performance tests (i.e. TUG and STS) to help her improve getting up from a chair, walking, and steps. Patient at high risk for prolonged disability due to sub score of 4 on the STarT Back Screening Tool. Classification Low Back Pain Subgroup Classification: Graded activity subgroup: recommended visits 12. Graded Activity Subgroup Classification based on: disproportionate pain;maladaptive psychosocial factors Prognosis: Fair Fair due to: clinical presentation;multiple co- morbidities;chronic nature of impairments;coping skills Goals for Episode of Care: created on 12/20/17 through 03/18/18 [place] in home exercise program. Patient will decrease pain rating by 2 points to meet minimal clinical important difference for numeric pain rating scale. (Goal: 5/10) Patient will increase strength of B LEs to 5/5 to allow for perform ADLs and negotiate stairs. Demonstrate improvement on functional score: Improve Modified Oswestry Pain Questionnaire (LBP) by 6 points (12%) to indicate a Minimal Clinical Important Difference. (Goal: 42%) Reciprocal stair negotiation. Patient will report being able to walk inside her home without increase in pain in her low back. Patient will decrease time on TUG to 8 sec to decrease her risk of falls. Patient will decrease her 5xSTS to 11 sec to decrease her risk of falls. G CODE REPORTING Based on clinical assessment and the score on the Oswestry Assessment Tool, the G code and corresponding severity modifiers are documented below. Evaluation: 12/20/2017 Current Status: Mobility: Walking and Moving Around: G8978 CK 40-59% impaired Goal Status: Mobility: Walking and Moving Around: G8979 CK 40-59% impaired Planned Interventions, Frequency, and Duration: Current Frequency: 2x/week Duration: 8 weeks Total Number of Visits Planned: 17 Planned Treatment Interventions: Therapeutic exercise;Patient/Family/Caregiver Education;Self-fdc management;General Conditioning;Functional training PLAN FOR NEXT VISIT: SciFit, LE strengthening following graded activity due to chonic nature of impairments. AVOID flexion exercises d/t osteoprosis. Core strengthening. Patient demonstrates fair understanding of plan of care and treatment. The above goals and plan of care were discussed and agreed upon by patient/family. SUBJECTIVE: Yamilex Mercado is a 62 year old female seen today for Has had low back pain for years. Has scoliosis and stenosis of the spine. 3 surgeries on L ankle and is expecting to have another surgery on the L ankle. She had a rxn to the disovlable stitches in her ankle, so put a cement disc in with antibiotic. Has used mm relaxors and vicodin for her pain. Went to see Dr. Ruiz who wanted to give her cortisone shots, so she fired him because the shots were not helping. Difficult to get up from a chair. Has had near falls but has not fallen. 3x a week home health aid comes in to help with light house work. Patient feels best sitting at table to croche. Patient has sleeped in her lazy boy chair for over a year. Functional Limitations: (getting up from a chair, bending, walking, steps) Prior Level of Function: Independent with restrictions Patient Goals: get a little stronger and delay getting into a w/c Intake Information: Prescription present Previous Treatment: Pain meds?;Pain Management? Falls Interview: No positive findings with falls interview Home Environment Patient Lives With: Self/Alone Home Type: (rggvpx-dp-xgg suit) Red Flags Vertebral Fracture Red Flags: Female Vertebral Fracture Clinical Reasoning: Proceed with caution due to the above (1-2) risk factors Abdominal Aortic Aneurysm Clinical Reasoning: No identified risk factors. Cancer Clinical Reasoning: No identified risk factors. Infection Clinical Reasoning: No identified risk factors. Cauda Equina Syndrome Clinical Reasoning: No identified risk factors. Red Flags - Cervical Cancer Clinical Reasoning: No identified risk factors. Infection Clinical Reasoning: No identified risk factors. Pain Score: 7/10 Pain Location: Low Back/Lumbar Spine - Left;Leg - Left;Ankle - Left Description: (just a pain) Frequency: Continuous Post Treatment Pain Score: No Change OBJECTIVE MEASURES WITH LEVEL OF FUNCTION: Posture / Alignment Posture: Forward head;Rounded shoulders;Elevated shoulder - right Lumbo - Pelvic Alignment: R hip is higher than the L LE AROM L Ankle Dorsiflexion: (to neutral) L Ankle Plantar Flexion: 10 Degrees L Ankle Inversion: 5 L Ankle Eversion: 10 LE Flexibility Flexibility: Hamstring Flexibility;Straight Leg Raise R Hamstring Flexibility: 70 L Hamstring Flexibility: 70 LE Strength Trunk Strength: 3/5 R Hip Flexion (L2): 3+/5 R Hip ABduction: 3+/5 R Hip ADduction: 3+/5 R Knee Extension (L3): 4+/5 R Knee Flexion: 4+/5 L Hip Flexion (L2): 3+/5 L Hip ABduction: 3+/5 L Hip ADduction: 3+/5 L Knee Extension (L3): 4-/5 (pain in L low back) L Knee Flexion: 4+/5 Special Tests - Hip and Spine Hip and Spine Special Tests: SLR Test SLR Test: Left Negative;Right Negative 5 Times Sit to Stand Test : 25 sec Timed Up and Go (sec): 17 sec Sitting up from table got dizzy Education: Education Learning Preferences: Demonstration;Explanation;Printed Materials Barriers: Emotions Learning/educational needs: Plan of Care;Home exercise program Education Provided: Yes, see treatment interventions for education provided Education Provided To: Patient Education Mode/Type: Demonstration;Explanation/Discussion;Literature/Printed Materials;Performance Response to Education/Teach Back: Return Demonstration;Requires Review/Additional Education TREATMENT: Evaluation Therapeutic Exercise: 1: To continue to use a lumbar roll when sitting in chairs and when driving in car to help provide support to her low back 2: *Shoulder blade Squeezes x10 3: *Shoulder rolls x10 Skilled Intervention: Patient was educated in proper exercise technique and purpose for exercises. Reviewed and educated patient on additions/changes for home exercise program as above (*) Skilled judgment was provided in selection of appropriate interventions. Provided written instruction for home exercise program to facilitate proper performance and compliance. Billing: [facility]: Evaluation - Moderate Complexity (52964) Therapeutic Exercise (38788): 1:1 time: 10 minutes (1 unit: 8-22 mins) Total time: 40 minutes Antonella Gray PT PROGRESS Observed: 12/11/2017 Status: COMPLETED Source: [place] 9:07 AM [facility] RE[facility] HNO ID: [id number] Author: Zahra Quiroz Rdms Service: (none) Author Type: (none) Type: Progress Notes Filed: 12/11/2017 9:08 AM Note Text: Radiology Service Progress Note PATIENT NAME: Yamilex Mercado DATE OF SERVICE: December 11, 2017 TIME: 9:07 AM PATIENT IDENTITY VERIFICATION COMPLETED USING TWO (2) METHODS: Patient confirmed name verbally and Date of . PATIENT GENDER DATA: Female. status: : No status: NO. PATIENT RELEVANT IMPLANT DATA REVIEWED: Not Applicable RADIOLOGY DEPARTMENT: Ultrasound PERIPHERAL IV DATA: Not applicable SIGNED BY: Zahrathelma Quiroz Rdms December 11, 2017 9:07 AM US KIDNEY/BLADDER Observed: 12/11/2017 Status: F Source: [place]ONE 9:07 AM [facility] REPOS[facility]ORY * * *Final Report* * * DATE OF EXAM: Dec 11 2017 9:07AM WRU 1055 - US KIDNEY/BLADDER / PROCEDURE REASON: Other microscopic hematuria * * * * Physician Interpretation * * * * EXAMINATION: RENAL ULTRASOUND CLINICAL HISTORY: Microscopic hematuria. TECHNIQUE: Sonography of the kidneys and urinary bladder was performed. Images were obtained and stored in a permanent archive. MQ: UR_1 COMPARISON: None RESULT: Right Kidney: -Renal length: 10.2 cm -Parenchyma: Normal parenchymal echogenicity. Normal parenchymal thickness. -Collecting system: No hydronephrosis. -Calculus: No echogenic, shadowing calculus. -Lesion: None. Left Kidney: -Renal length: 10 cm -Parenchyma: Normal parenchymal echogenicity. Normal parenchymal thickness. -Collecting system: No hydronephrosis. -Calculus: Small echogenic focus measuring approximately 4 mm in the mid to upper left kidney compatible with a nonobstructing renal calculus. -Lesion: None. Bladder: Normal sonographic appearance. IMPRESSION: Small nonobstructing left renal calculus. Air Shovel Operator: TWIN Transcribe Date/Time: Dec 11 2017 12:45P Dictated by : NAYE GREEN MD This examination was interpreted and the report reviewed and electronically signed by: NAYE GREEN MD on Dec 11 2017 12:46PM EST [id number] PERIOD AND VOLUME Collected: 12/10/2017 Status: F Source: [place]ONE 11:23 AM [facility] RE[facility] TYPE CODE TESTS RESULT OUT OF REFERENCE UNITS RANGE LAB PER hr Period 24 LAB VOL mL Volume 1437 Performed By: #### PV2, UVMA24, UMETAN #### [facility] [address] [address] #### URCAT2 #### [facility] [address] [place] [address] [phone] [facility] [address] [phone] VMA, URINE, 24HR Collected: 12/10/2017 Status: F Source: [place] 11:23 AM [facility] TYPE CODE TESTS RESULT OUT OF REFERENCE UNITS RANGE LAB UVMAC 0.0-8.0 mg/24hrs VMA 2.0 Urine, 24hr Result Comment: This test was developed and its performance characteristics determined by [facility]'s [facility] Pathology and [facility] [place] ([facility]). It has not been cleared or approved by the FDA. -[facility] is regulated under CLIA as qualified to perform high-complexity testing. This test is used for clinical purposes. It should not be regarded as investigational or for research. Performed By: #### PV2, UVMA24, UMETAN #### [place] [address] #### URCAT2 #### [facility] [address] [place] [address] [phone] [address] [place] [address] CATECHOLAMINE FRA UR Collected: 12/10/2017 Status: F Source: [place] 11:23 AM [facility] RE[facility] TYPE CODE TESTS RESULT OUT OF REFERENCE UNITS RANGE LAB CATHRS Hours Collected 24 LAB CATVOL Total Volume 1437 LAB CCRETC mg/dL Creatinine 66 Random Ur LAB UCRPD 500-1400 mg/d Creatinine,mg/da 948 y Ur Result Comment: (NOTE) Performed by [facility], [address] [place] [address] [email or web address] Phoenix MD, Lab. Director LAB EPI24U 1-7 ug/d Epi, Ur per 1 24hr Result Comment: (NOTE) REFERENCE INTERVAL: Epinephrine, Urine - ug/d Access complete set of age- and/or gender-specific reference intervals for this test in the [facility] Test Directory ([facility]). LAB NOR24U 16-71 ug/d Norepi, Ur per 24hr 24 Result Comment: (NOTE) REFERENCE INTERVAL: Norepinephrine, Urine - ug/d Access complete set of age- and/or gender-specific reference intervals for this test in the [facility] Test Directory ([facility]). LAB DOP24U 77-324 ug/d Dopa, Ur per 24hr 96 Result Comment: (NOTE) REFERENCE INTERVAL: Dopamine, Urine - ug/d Access complete set of age- and/or gender-specific reference intervals for this test in the [facility] Test Directory ([facility]). LAB EPIRAT 0-20 ug/g LINEN ROOM HOUSEPERSON Epi, Ur ratio 2 to LINEN ROOM HOUSEPERSON LAB NORRAT 0-45 ug/g LINEN ROOM HOUSEPERSON Norepi, Ur 26 ratio LINEN ROOM HOUSEPERSON LAB DOPRAT 0-250 ug/g LINEN ROOM HOUSEPERSON Dopa, Ur ratio 102 LINEN ROOM HOUSEPERSON LAB CATINT Catecholamines SEE NOTE , Int Result Comment: (NOTE) TEST INFORMATION: Catecholamines Fractionated, Urine Free The optimal specimen for this testing is a 24-hour urine collection. Mass per day calculations are not reported for patients younger than 4 years of age and for the following specimen types: a random collection, a collection with duration of less than 20 hours, a collection with duration of greater than 28 hours, or a collection with total volume less than 400 mL (if 18 years of age or older) or greater than 5000 mL (all ages). Ratios to creatinine may be useful for these evaluations. Smaller increases in catecholamine concentrations (less than two times the upper limit) usually are the result of physiological stimuli, drugs, or improper specimen collection. Significant elevation of one or more catecholamines (three or more times the upper reference limit) is associated with an increased probability of a neuroendocrine tumor. Access complete set of age- and/or gender-specific reference intervals for this test in the [facility] Test Directory ([facility]). Test developed and characteristics determined by [facility]. See Compliance Statement B: [facility] LAB EPIVOL ug/L Epi, Ur per volume 1 LAB NORVOL ug/L Norepi, Ur per 17 vol LAB DOPVOL ug/L Dopa, Ur per vol 67 Performed By: #### PV2, UVMA24, UMETAN #### [facility] [address] [address] #### URCAT2 #### [facility] [address] [place] [address] [phone] [facility] [address] [place], [place] [address] METANEPHRINE UR 24HR Collected: 12/10/2017 Status: F Source: [place] 11:23 AM [facility] TYPE CODE TESTS RESULT OUT OF REFERENCE UNITS RANGE LAB METAN 52-341 ug/24 hr Metanephrines,Urin 91 e LAB NORMET 88-444 ug/24 hr Normetanephrines,U 221 r LAB TOTMET 140-785 ug/24 hr Total Metanephrines 312 Result Comment: This test was developed and its performance characteristics determined by [facility] [place] ([facility]). It has not been cleared or approved by the FDA. [facility] is regulated under CLIA as qualified to perform high-complexity testing. This test is used for clinical purposes. It should not be regarded as investigational or for research. Performed By: #### PV2, UVMA24, UMETAN #### [address] [place], [place] [address] #### URCAT2 #### [facility] [address] [place] [address] [phone] [address] [place], [place] [address] XR CHEST 2V FRONTAL/LAT Observed: 12/08/2017 Status: F Source: [place] 1:09 PM [facility] RE[facility] * * *Final Report* * * DATE OF EXAM: Dec 08 2017 1:09PM WOX [id number] - XR CHEST 2V FRONTAL/LAT / PROCEDURE REASON: Cough * * * * Physician Interpretation * * * * EXAMINATION: CHEST RADIOGRAPH (2 VIEW FRONTAL and LATERAL) CLINICAL HISTORY: Cough MQ: [id number] Comparison: 11/16/2016 RESULT: Lines, tubes, and devices: None. Lungs and pleura: No consolidation. No lung mass. No pleural effusion. Cardiomediastinal silhouette: Normal cardiomediastinal silhouette. Other: Dextroconvex scoliosis of the thoracic spine noted IMPRESSION: No acute radiographic abnormality. Air Shovel Operator: TWIN Transcribe Date/Time: Dec 08 2017 1:57P Dictated by : BETZAIDA MOSQUEDA MD This examination was interpreted and the report reviewed and electronically signed by: BETZAIDA MOSQUEDA MD on Dec 08 2017 1:57PM EST [id number] PROGRESS Observed: 12/08/2017 Status: COMPLETED Source: [place] 1:02 PM [facility] HNO ID: [id number] Author: Bassam Orzoco (Rt) Carol Ann Donald Service: (none) Author Type: Insurance Claims Clerk Type: Progress Notes Filed: 12/08/2017 1:09 PM Note Text: Radiology Service Progress Note PATIENT NAME: Yamilex Mercado DATE OF SERVICE: December 08, 2017 TIME: 1:02 PM PATIENT IDENTITY VERIFICATION COMPLETED USING TWO (2) METHODS: Patient confirmed name verbally and Date of . PATIENT GENDER DATA: Female. status: : No status: NO. PATIENT RELEVANT IMPLANT DATA REVIEWED: Not Applicable RADIOLOGY DEPARTMENT: General X-ray: Exam(s) Completed: Chest X-Ray PERIPHERAL IV DATA: Not applicable SIGNED BY: RT Chago December 08, 2017 1:02 PM CBC AND DIFFERENTIAL Collected: 12/07/2017 Status: F Source: [place] 4:20 PM [facility] REPOSITORY TYPE CODE TESTS RESULT OUT OF REFERENCE UNITS RANGE LAB WBC 3.70-11.00 k/uL WBC 9.05 LAB RBC 3.90-5.20 m/uL RBC 4.33 LAB HGB 11.5-15.5 g/dL Hemoglobin 12.8 LAB HCT 36.0-46.0 % Hematocrit 43.3 LAB MCV 80.0-100.0 fL MCV 100.0 LAB MCH 26.0-34.0 pG MCH 29.6 LAB MCHC 30.5-36.0 g/dL Low MCHC 29.6 LAB RDWCV 11.5-15.0 % RDW-CV 13.7 LAB PLTCT 150-400 k/uL Platelet Count 240 LAB MPV 9.0-12.7 fL MPV 12.0 LAB ANEUT % Neut% 61.9 LAB AANEUT 1.45-7.50 k/uL Abs Neut 5.58 LAB ALYMP % Lymph% 28.6 LAB AALYMP 1.00-4.00 k/uL Abs Lymph 2.59 LAB AMONO % [place]wood% 6.7 LAB AAMONO <0.87 k/uL Abs [place] 0.61 LAB AEOS % Eosin% 2.2 LAB AAEOS <0.46 k/uL Abs Eosin 0.20 LAB ABASO % Baso% 0.6 LAB AABASO <0.11 k/uL Abs Baso 0.05 LAB AUNRBC 0 /100 WBC NRBCs 0.0 LAB ABNRBC <0.01 k/uL Absolute nRBC <0.01 LAB DTYP DTYPE Auto Diff Performed By: #### CBCDIF, PT, PTT, CMP, TSH #### [facility] [employer] [address] [place], [place] [address] PROTIME Collected: 12/07/2017 Status: F Source: [place] 4:20 PM [facility] REPOSITORY TYPE CODE TESTS RESULT OUT OF RANGE REFERENCE UNITS LAB PSEC 9.7-13.0 sec PT Sec 10.8 LAB INR 0.9-1.3 PT INR 1.0 Result Comment: Vitamin K Antagonist (VKA) Therapeutic Range: INR 2 to 3 (Target INR of 2.5) Note: For patients treated with VKA drugs, such as warfarin, the [place] [employer] 2012 Guideline recommends a therapeutic INR range of 2 to 3 (target INR of 2.5). This recommendation includes high-risk patients with antiphospholipid syndrome with previous arterial or venous thromboembolism, current-generation mechanical or bioprosthetic aortic heart valve replacement. Note: Patients with mechanical aortic valve replacement and additional risk factors for thromboembolic events (atrial fibrillation, previous thromboembolism, LV dysfunction, hypercoagulable conditions) or an older generation mechanical AVR (i.e., ball in-Cage) or any mechanical MVR should have a INR therapeutic range of 2.5 to 3.5 (target INR of 3). Concepcion GH, et al. Chest 2012, 141:7S-47S Scout RA, et al. [facility] 2017, 70: 252-289 Performed By: #### CBCDIF, PT, PTT, CMP, TSH #### [facility] [employer] [address] [place], [place] [address] APTT Collected: 12/07/2017 Status: F Source: [place] 4:20 PM [facility] REPOSITORY TYPE CODE TESTS RESULT OUT OF RANGE REFERENCE UNITS LAB APTT 23.0-32.4 sec APTT 28.9 Result Comment: Unfractionated Heparin Therapeutic Ranges: Standard Heparin Nomogram: 53 to 78 seconds (anti-Xa level of 0.3 to 0.7 U/ml) Low Dose/ACS Nomogram: 49 to 67 seconds (anti-Xa level of 0.2 to 0.5 U/ml) Stroke Treatment Nomogram: 49 to 67 seconds (anti-Xa level of 0.2 to 0.5 U/ml) Note: The APTT therapeutic range has been determined for the current lot of laboratory APTT reagent in use throughout the [facility]. Performed By: #### CBCDIF, PT, PTT, CMP, TSH #### [facility] [address] [place], [place] [address] COMP METABOLIC PANEL Collected: 12/07/2017 Status: F Source: [place] 4:20 PM [facility] REPOSITORY TYPE CODE TESTS RESULT OUT OF REFERENCE UNITS RANGE LAB TP 6.3-8.0 g/dL Protein, Total 7.5 LAB ALB 3.9-4.9 g/dL Albumin 4.2 LAB CA 8.5-10.2 mg/dL Calcium, Total 9.7 LAB TBIL 0.2-1.3 mg/dL Bilirubin, Total 0.3 LAB ALKP 32-117 U/L Alkaline Phosphatase 58 LAB AST 13-35 U/L AST 23 LAB GLU 74-99 mg/dL Glucose 82 Result Comment: The [place] Diabetes Association (ADA) provides guidance for cutoff values for fasting glucose and random glucose. The ADA defines fasting as no caloric intake for at least 8 hours. Fas ting plasma glucose results between 100 to 125 mg/dL indicate increased risk for diabetes (prediabetes). Fasting plasma glucose results greater than or equal to 126 mg/dL meet the criteria for diagnosis of diabetes. In the absence of unequivocal hyperglycemia, results should be confirmed by repeat testing. In a patient with classic symptoms of hyperglycemia or hyperglycemic crisis, random plasma glucose results greater than or equal to 200 mg/dL meet the criteria for diagnosis of diabetes. Reference: Standards of Medical Care in Diabetes 2016, [place] Diabetes Association. Diabetes Care. 2016.39(Suppl 1). LAB BUN 7-21 mg/dL BUN High 23 LAB CRET 0.58-0.96 mg/dL Creatinine High 1.24 LAB NA 136-144 mmol/L Sodium 141 LAB K 3.7-5.1 mmol/L Potassium 4.4 LAB CL 97-105 mmol/L Chloride High 106 LAB CO2 22-30 mmol/L CO2 23 LAB AGAP 9-18 mmol/L Anion Gap 12 LAB ALT 7-38 U/L ALT 15 LAB GFRAA eGFR- Amer. 53 LAB GFRNAA . eGFR-All Other Races 44 Result Comment: eGFR (Estimated GFR) Units of measure: mL/min/1.73 meters squared eGFR is derived from the reexpressed MDRD Study equation using the following parameters: serum creatinine, age, gender and race. The creatinine assay has been calibrated to be traceable to IDMS. An eGFR <60 mL/min/1.73m2 for >3 months is consistent with chronic kidney disease. Refer to KDOQI guidelines for clinical interpretation. In patients with unstable renal function, e.g. those with acute kidney injury, the eGFR may not accurately reflect actual GFR. Performed By: #### CBCDIF, PT, PTT, CMP, TSH #### [facility] [address] [place] [address] TSH Collected: 12/07/2017 Status: F Source: [place] 4:20 PM [facility] REPOSITORY TYPE CODE TESTS RESULT OUT OF RANGE REFERENCE UNITS LAB TSH 0.400-5.500 uU/mL TSH 1.650 Performed By: #### CBCDIF, PT, PTT, CMP, TSH #### [facility] [address] [address] URINALYSIS WITH Collected: 12/07/2017 Status: F Source: [facility] 4:20 PM [facility] REPOSITORY TYPE CODE TESTS RESULT OUT OF RANGE REFERENCE UNITS LAB UCOL Yellow Color Yellow LAB [facility] Clear Clarity Abnormal Cloudy Alert LAB UGLUC Negative mg/dL Glucose, Urine Negative LAB UBIL Negative Bilirubin, Urine Negative LAB UKET Negative Ketones, Urine Negative LAB USPG 1.005-1.030 Specific [place], Ur 1.024 LAB UHGB Negative Abnormal Hemoglobin/Blood, 1+ Alert Ur LAB UPH 4.5-8.0 pH 5.0 LAB UPROT Negative mg/dL Protein, Abnormal Urine 30 Alert LAB UUROB Normal Urobilinogen Normal LAB UNITR Negative Nitrites Negative LAB ULKEST Negative Leukest Abnormal 2+ Alert LAB UCOM Comments SEE COMMENT Result Comment: N/A LAB UMCOM Urine SEE Nakul Comment COMMENT Result Comment: N/A LAB UWBC 0-5 /HPF Abnormal Alert WBC 6-10 LAB URBC 0-3 /HPF Abnormal Alert RBC 6-10 LAB UCAST 0 /LPF Abnormal Alert Cast SEE COMMENT Result Comment: 4-10 Hyaline Cast LAB UEPI /HPF Epithelial SEE Cells COMMENT Result Comment: Few Squamous Epithelial Cells Performed By: #### UAWMIC #### [facility] [address] [place], [place] [address] PROGRESS Observed: 12/07/2017 Status: COMPLETED Source: [place] 3:[address] [facility] REPOSITORY HNO ID: [id number] Author: Too Amin Service: (none) Author Type: Physician Type: Progress Notes Filed: 12/09/2017 2:13 PM Note Text: Patient presents with: Recheck HPI: Patient presents today for office visit for recheck. Nursing Notes: Abbyshanique Frosthaleighchris TRAN 12/07/2017 3:08 PM Signed Follow up from 11/23/17 visit. States that lightheadedness is improved only happens with low glucose. Urine is still darker in color and not going as often. Reports that increased her fluids. Since this happened also seems to be hot all the time. She used to be cold all the time so this is a change for her. Didn't get her labs done as was ordered. States that she forgot. Concerned because she had area that itched the other day and after scratching noticed a large bruise on left thigh. Also tripped over a footstool the other day and now has some left ankle pain and low back pain. Asking about possible physical therapy just feels weak. Last visit, she had a large number of complaints. Unfortunately she did not do labs. Urine which appears to maybe have been infected was in fact negative for infection. She was lightheaded and not urinating as much and thought maybe she was dehydrated. She is no longer feeling lightheaded. She feels like her whole body is out of whack. is hot a lot. Her allergies are acting up. No fever Almost like a hot flash. She has been off of premerin for six or seven years. Gets sweating. No chest pain or shortness of breath. She still does not notice she is urinating as much. No changes in hair. Her skin is dry. No diarrhea or constipation. She has a rash on her right elbow. Has been there for a few months. She blames it on resting her elbow on her kitchen table. She is coughing some. Attributes to allergies. She did have some bruising on her thigh. No other bleeding or bruising issues. No falls. She has spinal stenosis. She wants to see if she can improve her debility. Has generalized myalgias. MEDICATIONS: Current Outpatient Prescriptions: pravastatin (PRAVACHOL) 20 mg tablet take 1 tablet by mouth once daily at bedtime ibuprofen (MOTRIN) 600 mg tablet Take 1 tablet by mouth every 8 hours as needed. PARoxetine (PAXIL) 40 mg tablet Take 1 tablet by mouth once daily. Promethazine-DM (PHENERGAN-DM) 6.25-15 mg/5 mL syrup Take 5 mL by mouth four times daily as needed. albuterol HFA (VENTOLIN HFA) 90 mcg/actuation inhaler Inhale 2 Puffs as instructed every 4 hours as needed for Wheezing/Shortness of Breath. COMPOUNDED PRESCRIPTION Powerstep Original Full Length` propranolol (INDERAL) 10 mg tablet Take 1 tablet by mouth twice daily. (Patient not taking: Reported on 09/10/2017 ) cephALEXin (KEFLEX) 500 mg capsule Take 1 capsule by mouth three times daily. cyclobenzaprine (FLEXERIL) 10 mg tablet take 1 tablet by mouth once daily Cholecalciferol, Vitamin D3, 5,000 unit cap Take 1 capsule by mouth once daily. metFORMIN (GLUCOPHAGE) 850 mg tablet take 1 tablet by mouth twice a day with meals blood sugar diagnostic (BLOOD GLUCOSE TEST) test strip Test twice daily COMPOUNDED PRESCRIPTION powerstep orthoticsDx: posterior tibial tendon dysfunction flatfoot cyclobenzaprine (FLEXERIL) 10 mg tablet Take 10 mg by mouth once daily. polyethylene glycol 3350 (MIRALAX) 17 gram/dose powder Take 17 g by mouth once daily. For constipation from narcotics. (Patient not taking: Reported on 11/23/2017 ) budesonide (PULMICORT FLEXHALER) 180 mcg/actuation aepb Inhale 2 Puffs as instructed twice daily. (Patient not taking: Reported on 09/10/2017 ) Cholecalciferol, Vitamin D3, 2,000 unit cap Take 1 capsule by mouth once daily. calcium carbonate (CALTRATE) 600 mg (1,500 mg) tab Take 1 tablet by mouth once daily. (Patient not taking: Reported on 11/23/2017 ) blood sugar diagnostic (ACCU-CHEK JIMMIE) test strip Use for blood sugar testing once daily and as needed, 250.00 Lancets (ACCU-CHEK MULTICLIX LANCET) [facility] [place] blood sugar once daily. No current facility-administered medications for this visit. ALLERGIES: ALLERGIES Allergen Reactions - Ampicillin GI Upset Intolerance, can take cephalosporins - Avelox [Moxifloxaci* Mental Status Change - Bactrim [Sulfametho* Vomiting - Doxycycline GI Upset - Steroids [Corticost* Other: See Comments Anxiety, jittery and head feels funny PAST MEDICAL HISTORY Diagnosis Date - Adjustment disorder with depressed mood - Kidney stones - Mixed hyperlipidemia Hyperlipidemia - Other and unspecified hyperlipidemia in the past - Type II or unspecified type diabetes mellitus without mention of complication, not stated as uncontrolled PAST SURGICAL HISTORY Procedure Laterality Date - APPENDECTOMY - ESWL kidney stones - PAST SURGICAL HISTORY OF tubal preg - PAST SURGICAL HISTORY OF remote left leg/ ankle with plates and screws - PAST SURGICAL HISTORY OF 11/29/2011 Bunion Removed - REMOVAL GALLBLADDER - REMOVAL OF OVARY(S) bilaterally with hysterectomy - TOTAL ABD HYSTERECTOMY+BLAD REPR FAMILY HISTORY Problem Relation Age of Onset - Adopted: Yes - Diabetes Father - Diabetes Maternal Grandmother - Heart Father - Hypertension Father - Lipids Father - None Sister - Diabetes Daughter - Cancer Sister thyroid. 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 Has taken care of grandson. Reviewed current medications, allergies, past medical history, surgical history, family history and social history today. REVIEW OF SYSTEMS GI: No nausea, vomiting, or diarrhea : No history of dysuria, frequency or incontinence All other reviewed and negative other than HPI. HEALTH MAINTENANCE: Reviewed health maintenance issues today and recommended the following in detail. DTAP,TDAP,TD(1 - Tdap) due on 1972 DILATED RETINAL EXAM due on 05/30/2013 MAMMOGRAM due on 07/15/2015 FECAL OCCULT BLOOD due on 03/02/2016 INFLUENZA(1) due on 11/24/2017 VITALS: BP 90/62 Pulse 76 Temp 36.8 ?C (98.2 ?F) (Tympanic) Resp 16 Wt 71.2 kg (157 lb) BMI 27.38 kg/m? Last 4 Encounter Wt Readings: Date: Wt: 12/07/2017 71.2 kg (157 lb) 11/23/2017 71.2 kg (157 lb) 09/28/2017 72.6 kg (160 lb) 09/10/2017 73.5 kg (162 lb) PHYSICAL EXAMINATION: General appearance: Well appearing, alert, in no acute distress, well-hydrated, well nourished. Skin: Skin color, texture, turgor normal, no suspicious rashes or lesions. She has a pink papular rash on elbow. Suggested topical steroids. Has an open area in groin that looks like an abrasion. No signs if infection. Suggested neosporin prn Head: Normocephalic, no masses, lesions, tenderness or abnormalities Lungs: Lungs clear to auscultation. No wheezing, rhonchi, rales Heart: RRR without murmur, gallop, or rubs. No ectopy Abdomen: Normal abdominal exam, Abdomen soft, non-tender. Bowel sounds normal. No masses, organomegaly Extremities: No deformities, edema, skin discoloration, clubbing or cyanosis. Good capillary refill. Musculoskeletal: No joint swelling, deformity, or tenderness Peripheral pulses: Normal BACK: Normal curvature of spine. No spine tenderness. Straight leg test negative. Deep tendon reflexes 2+/4 at patellas. Normal lower extremity strength. ASSESSMENT/PLAN: 1. Hot flashes - ICD9: 782.62, ICD10: R23.2 (primary diagnosis) - check work up. Encouraged to get these labs plus labs from last week. Her complaints this week are new. - TSH BLD - METANEPHRINES 24H UR - CATECHOLAMINES FRACTIONATED, URINE FREE - VMA 24 HR URINE 2. Bruising - ICD9: 924.9, ICD10: T14.8XXA - do labs. - CBC + DIFF - COMP METABOLIC PANEL - PROTHROMBIN TIME/PT - ACTIVATED PTT 3. Generalized weakness - ICD9: 780.79, ICD10: R53.1 Follow progress - TSH BLD 4. Debility - ICD9: 799.3, ICD10: R53.81 - CONSULT TO PHYSICAL THERAPY 5. Spinal stenosis of lumbar region, unspecified whether neurogenic claudication present - ICD9: 724.02, ICD10: M48 - CONSULT TO PHYSICAL THERAPY 6. Cough - ICD9: 786.2, ICD10: R05 Check xray - XR CHEST 2V FRONTAL/LAT 7. Microscopic hematuria - ICD9: 599.72, ICD10: R31.29 -follow progress - URINALYSIS WITH MICROSCOPIC 8. Eczema, unspecified type - ICD9: 692.9, ICD10: L30.9 - as above. 9. Dermatitis - ICD9: 692.9, ICD10: L30.9 - discussed skin care of rash - follow up if symptoms persist or worsen. Too Amin MD CNOV Observed: 12/07/2017 Status: COMPLETED Source: [place] 2:40 PM [facility] REPOSITORY [facility] YAMILEX MERCADO ([id number]) 1955 F Date Time Provider Department 12/07/17 2:40 PM TOO AMIN [facility] During your visit today, we recorded the following information about you: Temperature Pulse Respiration Blood pressure 98.2 degrees 76/minute 16/minute 90/62 Weight 71.2 kg Abby Boss TRAN 12/07/2017 3:08 PM Signed Follow up from 11/23/17 visit. States that lightheadedness is improved only happens with low glucose. Urine is still darker in color and not going as often. Reports that increased her fluids. Since this happened also seems to be hot all the time. She used to be cold all the time so this is a change for her. Didn't get her labs done as was ordered. States that she forgot. Concerned because she had area that itched the other day and after scratching noticed a large bruise on left thigh. Also tripped over a footstool the other day and now has some left ankle pain and low back pain. Asking about possible physical therapy just feels weak. Too Amin MD 12/09/2017 2:13 PM Signed Patient presents with: Recheck HPI: Patient presents today for office visit for recheck. Nursing Notes: Abby Boss TRAN 12/07/2017 3:08 PM Signed Follow up from 11/23/17 visit. States that lightheadedness is improved only happens with low glucose. Urine is still darker in color and not going as often. Reports that increased her fluids. Since this happened also seems to be hot all the time. She used to be cold all the time so this is a change for her. Didn't get her labs done as was ordered. States that she forgot. Concerned because she had area that itched the other day and after scratching noticed a large bruise on left thigh. Also tripped over a footstool the other day and now has some left ankle pain and low back pain. Asking about possible physical therapy just feels weak. Last visit, she had a large number of complaints. Unfortunately she did not do labs. Urine which appears to maybe have been infected was in fact negative for infection. She was lightheaded and not urinating as much and thought maybe she was dehydrated. She is no longer feeling lightheaded. She feels like her whole body is out of whack. is hot a lot. Her allergies are acting up. No fever Almost like a hot flash. She has been off of premerin for six or seven years. Gets sweating. No chest pain or shortness of breath. She still does not notice she is urinating as much. No changes in hair. Her skin is dry. No diarrhea or constipation. She has a rash on her right elbow. Has been there for a few months. She blames it on resting her elbow on her kitchen table. She is coughing some. Attributes to allergies. She did have some bruising on her thigh. No other bleeding or bruising issues. No falls. She has spinal stenosis. She wants to see if she can improve her debility. Has generalized myalgias. MEDICATIONS: Current Outpatient Prescriptions: pravastatin (PRAVACHOL) 20 mg tablet take 1 tablet by mouth once daily at bedtime ibuprofen (MOTRIN) 600 mg tablet Take 1 tablet by mouth every 8 hours as needed. PARoxetine (PAXIL) 40 mg tablet Take 1 tablet by mouth once daily. Promethazine-DM (PHENERGAN-DM) 6.25-15 mg/5 mL syrup Take 5 mL by mouth four times daily as needed. albuterol HFA (VENTOLIN HFA) 90 mcg/actuation inhaler Inhale 2 Puffs as instructed every 4 hours as needed for Wheezing/Shortness of Breath. COMPOUNDED PRESCRIPTION Powerstep Original Full Length` propranolol (INDERAL) 10 mg tablet Take 1 tablet by mouth twice daily. (Patient not taking: Reported on 09/10/2017 ) cephALEXin (KEFLEX) 500 mg capsule Take 1 capsule by mouth three times daily. cyclobenzaprine (FLEXERIL) 10 mg tablet take 1 tablet by mouth once daily Cholecalciferol, Vitamin D3, 5,000 unit cap Take 1 capsule by mouth once daily. metFORMIN (GLUCOPHAGE) 850 mg tablet take 1 tablet by mouth twice a day with meals blood sugar diagnostic (BLOOD GLUCOSE TEST) test strip Test twice daily COMPOUNDED PRESCRIPTION powerstep orthoticsDx: posterior tibial tendon dysfunction flatfoot cyclobenzaprine (FLEXERIL) 10 mg tablet Take 10 mg by mouth once daily. polyethylene glycol 3350 (MIRALAX) 17 gram/dose powder Take 17 g by mouth once daily. For constipation from narcotics. (Patient not taking: Reported on 11/23/2017 ) budesonide (PULMICORT FLEXHALER) 180 mcg/actuation aepb Inhale 2 Puffs as instructed twice daily. (Patient not taking: Reported on 09/10/2017 ) Cholecalciferol, Vitamin D3, 2,000 unit cap Take 1 capsule by mouth once daily. calcium carbonate (CALTRATE) 600 mg (1,500 mg) tab Take 1 tablet by mouth once daily. (Patient not taking: Reported on 11/23/2017 ) blood sugar diagnostic (ACCU-CHEK JIMMIE) test strip Use for blood sugar testing once daily and as needed, 250.00 Lancets (ACCU-CHEK MULTICLIX LANCET) [facility] [place] Test blood sugar once daily. No current facility-administered medications for this visit. ALLERGIES: ALLERGIES Allergen Reactions - Ampicillin GI Upset Intolerance, can take cephalosporins - Avelox [Moxifloxaci* Mental Status Change - Bactrim [Sulfametho* Vomiting - Doxycycline GI Upset - Steroids [Corticost* Other: See Comments Anxiety, jittery and head feels funny PAST MEDICAL HISTORY Diagnosis Date - Adjustment disorder with depressed mood - Kidney stones - Mixed hyperlipidemia Hyperlipidemia - Other and unspecified hyperlipidemia in the past - Type II or unspecified type diabetes mellitus without mention of complication, not stated as uncontrolled PAST SURGICAL HISTORY Procedure Laterality Date - APPENDECTOMY - ESWL kidney stones - PAST SURGICAL HISTORY OF tubal preg - PAST SURGICAL HISTORY OF remote left leg/ ankle with plates and screws - PAST SURGICAL HISTORY OF 11/29/2011 Bunion Removed - REMOVAL GALLBLADDER - REMOVAL OF OVARY(S) bilaterally with hysterectomy - TOTAL ABD HYSTERECTOMY+BLAD REPR FAMILY HISTORY Problem Relation Age of Onset - Adopted: Yes - Diabetes Father - Diabetes Maternal Grandmother - Heart Father - Hypertension Father - Lipids Father - None Sister - Diabetes Daughter - Cancer Sister thyroid. 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 Has taken care of grandson. Reviewed current medications, allergies, past medical history, surgical history, family history and social history today. REVIEW OF SYSTEMS GI: No nausea, vomiting, or diarrhea : No history of dysuria, frequency or incontinence All other reviewed and negative other than HPI. HEALTH MAINTENANCE: Reviewed health maintenance issues today and recommended the following in detail. DTAP,TDAP,TD(1 - Tdap) due on 1972 DILATED RETINAL EXAM due on 05/30/2013 MAMMOGRAM due on 07/15/2015 FECAL OCCULT BLOOD due on 03/02/2016 INFLUENZA(1) due on 11/24/2017 VITALS: BP 90/62 Pulse 76 Temp 36.8 ?C (98.2 ?F) (Tympanic) Resp 16 Wt 71.2 kg (157 lb) BMI 27.38 kg/m? Last 4 Encounter Wt Readings: Date: Wt: 12/07/2017 71.2 kg (157 lb) 11/23/2017 71.2 kg (157 lb) 09/28/2017 72.6 kg (160 lb) 09/10/2017 73.5 kg (162 lb) PHYSICAL EXAMINATION: General appearance: Well appearing, alert, in no acute distress, well-hydrated, well nourished. Skin: Skin color, texture, turgor normal, no suspicious rashes or lesions. She has a pink papular rash on elbow. Suggested topical steroids. Has an open area in groin that looks like an abrasion. No signs if infection. Suggested neosporin prn Head: Normocephalic, no masses, lesions, tenderness or abnormalities Lungs: Lungs clear to auscultation. No wheezing, rhonchi, rales Heart: RRR without murmur, gallop, or rubs. No ectopy Abdomen: Normal abdominal exam, Abdomen soft, non-tender. Bowel sounds normal. No masses, organomegaly Extremities: No deformities, edema, skin discoloration, clubbing or cyanosis. Good capillary refill. Musculoskeletal: No joint swelling, deformity, or tenderness Peripheral pulses: Normal BACK: Normal curvature of spine. No spine tenderness. Straight leg test negative. Deep tendon reflexes 2+/4 at patellas. Normal lower extremity strength. ASSESSMENT/PLAN: 1. Hot flashes - ICD9: 782.62, ICD10: R23.2 (primary diagnosis) - check work up. Encouraged to get these labs plus labs from last week. Her complaints this week are new. - TSH BLD - METANEPHRINES 24H UR - CATECHOLAMINES FRACTIONATED, URINE FREE - VMA 24 HR URINE 2. Bruising - ICD9: 924.9, ICD10: T14.8XXA - do labs. - CBC + DIFF - COMP METABOLIC PANEL - PROTHROMBIN TIME/PT - ACTIVATED PTT 3. Generalized weakness - ICD9: 780.79, ICD10: R53.1 Follow progress - TSH BLD 4. Debility - ICD9: 799.3, ICD10: R53.81 - CONSULT TO PHYSICAL THERAPY 5. Spinal stenosis of lumbar region, unspecified whether neurogenic claudication present - ICD9: 724.02, ICD10: M48 - CONSULT TO PHYSICAL THERAPY 6. Cough - ICD9: 786.2, ICD10: R05 Check xray - XR CHEST 2V FRONTAL/LAT 7. Microscopic hematuria - ICD9: 599.72, ICD10: R31.29 -follow progress - URINALYSIS WITH MICROSCOPIC 8. Eczema, unspecified type - ICD9: 692.9, ICD10: L30.9 - as above. 9. Dermatitis - ICD9: 692.9, ICD10: L30.9 - discussed skin care of rash - follow up if symptoms persist or worsen. Too Amin MD Referring Provider: SELF [[id number]] Allergies As of Date: 12/07/2017 Noted Allergy Reaction AMPICILLIN 12/17/2006 8 - GI Upset Comments: Intolerance, can take cephalosporins AVELOX (MOXIFLOXACIN HCL) 09/21/2010 1 - Mental Status Change BACTRIM (SULFAMETHOXAZOLE-TRIMETH*03/05/2017 11 - Vomiting DOXYCYCLINE 12/17/2006 8 - GI Upset STEROIDS (CORTICOSTEROIDS (GLUCOC*12/12/2013 14 - Other: See Comments Comments: Anxiety, jittery and head feels funny Date Reviewed: 12/07/2017 Reviewed by: Abby Boss LPN - Fully Assessed Reason for Visit: Recheck [92] Primary Visit Diagnosis:Hot flashes [R23.2] Other Visit Diagnoses:Bruising [T14.8XXA] Generalized weakness [R53.1] Debility [R53.81] Spinal stenosis of lumbar region, unspecified whether neurogenic claudication present [M48.061] Cough [R05] Microscopic hematuria [R31.29] Eczema, unspecified type [L30.9] Dermatitis [L30.9] Order(s):URINALYSIS WITH MICROSCOPIC [SQUAWMIC] Order #: [id number] FUTURE CONSULT TO PHYSICAL THERAPY [9032] Order #: [id number]: 1 XR CHEST 2V FRONTAL/LAT [1760763] Order #: [id number] FUTURE CBC + DIFF [SQCBCDIF] Order #: [id number] FUTURE COMP METABOLIC PANEL [SQCMP] Order #: [id number] FUTURE PROTHROMBIN TIME/PT [SQPT] Order #: [id number] FUTURE ACTIVATED PTT [SQPTT] Order #: [id number] FUTURE TSH BLD [SQTSH] Order #: [id number] FUTURE METANEPHRINES 24H UR [SQUMETAN] Order #: [id number] FUTURE CATECHOLAMINES FRACTIONATED, URINE FREE [SQURCAT2] Order #: [id number] FUTURE VMA 24 HR URINE [SQUVMA2] Order #: [id number] FUTURE Prescriptions as of 12/07/2017 Sig: PRAVASTATIN 20 MG TABLET take 1 tablet by mouth once d* IBUPROFEN 600 MG TABLET Take 1 tablet by mouth every * PAROXETINE 40 MG TABLET Take 1 tablet by mouth once d* PROMETHAZINE-DM 6.25 MG-15 MG* Take 5 mL by mouth four times* ALBUTEROL SULFATE HFA 90 MCG/* Inhale 2 Puffs as instructed * COMPOUNDED PRESCRIPTION Powerstep Original Full Lengt* PROPRANOLOL 10 MG TABLET Take 1 tablet by mouth twice * Patient not taking: Reported on 09/10/2017 CEPHALEXIN 500 MG CAPSULE Take 1 capsule by mouth three* CYCLOBENZAPRINE 10 MG TABLET take 1 tablet by mouth once d* CHOLECALCIFEROL (VITAMIN D3) * Take 1 capsule by mouth once * METFORMIN 850 MG TABLET take 1 tablet by mouth twice * BLOOD SUGAR DIAGNOSTIC STRIPS Test twice daily COMPOUNDED PRESCRIPTION powerstep orthotics Dx: post* CYCLOBENZAPRINE 10 MG TABLET Take 10 mg by mouth once clovis* POLYETHYLENE GLYCOL 3350 17 G* Take 17 g by mouth once daily* Patient not taking: Reported on 11/23/2017 BUDESONIDE 180 MCG/ACTUATION * Inhale 2 Puffs as instructed * Patient not taking: Reported on 09/10/2017 CHOLECALCIFEROL (VITAMIN D3) * Take 1 capsule by mouth once * CALCIUM CARBONATE 600 MG CALC* Take 1 tablet by mouth once d* Patient not taking: Reported on 11/23/2017 BLOOD SUGAR DIAGNOSTIC STRIPS Use for blood sugar testing o* LANCETS Test blood sugar once daily. Problem List As Of Date 12/07/2017 Noted Resolved Well controlled type 2 diabetes mellitus with n*INVALID FOR* More... Hyperlipidemia with target LDL less than 70 [E7*INVALID FOR* Chronic low back pain [M54.5, G89.29] INVALID FOR* Depression with anxiety [F41.8] INVALID FOR* More... Fibromyalgia [M79.7] INVALID FOR* Osteoporosis [M81.0] INVALID FOR* More... Tobacco abuse [Z72.0] INVALID FOR* Pain in limb [M79.609] INVALID FOR* Atrophic vaginitis [N95.2] INVALID FOR* Hallux valgus, acquired [M20.10] INVALID FOR* Suture reaction [T81.89XA] INVALID FOR*04/08/2015 Dyspareunia [NGE5787] INVALID FOR* Vitamin D deficiency [E55.9] INVALID FOR* Degenerative disc disease [CLB8454] INVALID FOR* Scoliosis [M41.9] INVALID FOR* Lumbar radiculopathy [M54.16] INVALID FOR* Lumbar canal stenosis [M48.061] INVALID FOR* Essential tremor [G25.0] INVALID FOR* Pyogenic inflammation of bone (HCC) [M86.9] INVALID FOR* Visit Notes: >> Abby Boss LPN Fri Dec 07, 2017 2:59 PM Status: Signed Follow up from 11/23/17 visit. States that lightheadedness is improved only happens with low glucose. Urine is still darker in color and not going as often. Reports that increased her fluids. Since this happened also seems to be hot all the time. She used to be cold all the time so this is a change for her. Didn't get her labs done as was ordered. States that she forgot. Concerned because she had area that itched the other day and after scratching noticed a large bruise on left thigh. Also tripped over a footstool the other day and now has some left ankle pain and low back pain. Asking about possible physical therapy just feels weak. Disposition: Return in about 4 weeks (around 01/04/2018). Follow-up and Disposition History Recorded Encounter Status:Closed by TOO AMIN MD on 12/09/17 ECG COMPLETE W Observed: 11/23/2017 Status: F Source: [facility] INTERPRETATION 1:46 PM [facility] REPOS[facility]ORY NAME : YAMILEX MERCADO PID : [id number] : 1955 Gender : Female Race : ORD : [id number] Procedure Date : Nov 23 2017 13:46:48 Edit Date : Nov 27 2017 16:58:27 Diagnosis:NORMAL SINUS RHYTHM NORMAL ECG Confirmed by BRANDI REGALADO D.O. ([id number]) on 11/27/2017 4:58:22 PM Ventricular Rate : 74 BPM Atrial Rate : 74 BPM P-R Interval : 146 ms QRS Duration : 88 ms Q-T Interval : 404 ms QTC Calculation(Bezet) : 448 ms P [place] : 23 degrees R [place] : 17 degrees T [place] : 52 degrees Test Reason : Location : 185 : [facility] Overread By : BRANDI REGALADO D.O. Edited By : BRANDI REGALADO D.O. Referred By : TOO AMIN Acquired by : Edmundo BOSS, Observed: 11/23/2017 Status: F Source: [place] URINE CULTURE 1:32 PM [facility] REPOSITORY Sp. Request/Comment: - Specimen received in preservative Culture Result - <10,000 CFU/ml Gram negative bacilli --> ABNORMAL ALERT Insignificant colony count. No further workup. --> ABNORMAL ALERT 10,000 - <50,000 CFU/ml Normal urogenital digna Performed By: #### URCUL #### [facility] [address] [place], [place] [address] PROGRESS Observed: 11/23/2017 Status: COMPLETED Source: [place] 1:16 PM [facility] REPOSITORY HNO ID: [id number] Author: Too Amin Service: (none) Author Type: Physician Type: Progress Notes Filed: 11/23/2017 1:54 PM Note Text: Patient presents with: Dehydration HPI: Patient presents today for office visit for evaluation. Nursing Notes: Abby Boss LPN 11/23/2017 1:03 PM Addendum Air conditioner was broken during this heat spell and has been sweating a lot. States that doesn't feel that is urinating as much as she normally does. Reports that urine is dark when she does go. Her mouth is always dry. Just doesn't feel right. Admits to some dizziness. Attempted orthostatic vital signs. Completed supine and then upon sitting had dizziness like a weight in her head. After completing the sitting blood pressure when went to standing was still dizzy and needed to sit down. BP w/Orthostatic Vitals Date and Time Orthostatic BP Orthostatic Pulse BP Pulse BP Position BP Site BP Cuff Size 11/23/17 1259 128/83 76 -- -- Sitting Left Arm Regular Adult 11/23/17 1258 108/71 77 -- -- Supine Left Arm Regular Adult 11/23/17 1243 -- -- 104/70 76 -- -- -- Peak Flow Date and Time PF Resp 11/23/17 1243 -- 16 Component Latest Ref Rng AND Units 11/23/2017 Glucose, Urine Neg mg/dL neg Bilirubin, Urine Neg small Ketones, Urine Neg neg Specific [place], Ur 1.005 - 1.030 1.030 Hemoglobin/Blood,Ur Neg moderate pH, Urine 4.5 - 8.0 6.0 Protein, Urine Neg mg/dL trace Urobilinogen, Urine Normal (<1.1) EU normal Nitrites Neg neg Leukocytes Neg trace Color/Appearance comment: jamey/clear Quality Check yes/no Yes Has been feeling badly for a couple of days. generalized malaise. Has a dry mouth. Her air conditioner had stopped. Her appt has been very hot. Not drinking as much. Says she has not been urinating as much. Although was able to give us a urinary sample today. Has some sinus congestion. Does admit to anxiety issues. Feels lightheaded. No true vertigo. Occasionally presyncopal. Not syncopal. Mild headache. Vision has been ok. No focal numbness or weakness. No new tinnitus. No new cough or congestion. She is feeling very tired. Does have a remote hx of kidney stones. No recent flank pain or back pain. Sugar was 129 before coming to the office. MEDICATIONS: Current Outpatient Prescriptions: PARoxetine (PAXIL) 40 mg tablet Take 1 tablet by mouth once daily. albuterol HFA (VENTOLIN HFA) 90 mcg/actuation inhaler Inhale 2 Puffs as instructed every 4 hours as needed for Wheezing/Shortness of Breath. cyclobenzaprine (FLEXERIL) 10 mg tablet take 1 tablet by mouth once daily Cholecalciferol, Vitamin D3, 5,000 unit cap Take 1 capsule by mouth once daily. pravastatin (PRAVACHOL) 20 mg tablet Take 1 tablet by mouth daily at bedtime. metFORMIN (GLUCOPHAGE) 850 mg tablet take 1 tablet by mouth twice a day with meals Promethazine-DM (PHENERGAN-DM) 6.25-15 mg/5 mL syrup Take 5 mL by mouth four times daily as needed. COMPOUNDED PRESCRIPTION Powerstep Original Full Length` propranolol (INDERAL) 10 mg tablet Take 1 tablet by mouth twice daily. (Patient not taking: Reported on 09/10/2017 ) cephALEXin (KEFLEX) 500 mg capsule Take 1 capsule by mouth three times daily. ibuprofen (MOTRIN) 600 mg tablet take 1 tablet by mouth every 8 hours if needed for pain blood sugar diagnostic (BLOOD GLUCOSE TEST) test strip Test twice daily COMPOUNDED PRESCRIPTION powerstep orthoticsDx: posterior tibial tendon dysfunction flatfoot cyclobenzaprine (FLEXERIL) 10 mg tablet Take 10 mg by mouth once daily. polyethylene glycol 3350 (MIRALAX) 17 gram/dose powder Take 17 g by mouth once daily. For constipation from narcotics. (Patient not taking: Reported on 11/23/2017 ) budesonide (PULMICORT FLEXHALER) 180 mcg/actuation aepb Inhale 2 Puffs as instructed twice daily. (Patient not taking: Reported on 09/10/2017 ) Cholecalciferol, Vitamin D3, 2,000 unit cap Take 1 capsule by mouth once daily. calcium carbonate (CALTRATE) 600 mg (1,500 mg) tab Take 1 tablet by mouth once daily. (Patient not taking: Reported on 11/23/2017 ) blood sugar diagnostic (ACCU-CHEK JIMMIE) test strip Use for blood sugar testing once daily and as needed, 250.00 Lancets (ACCU-CHEK MULTICLIX LANCET) [facility] [place] Test blood sugar once daily. No current facility-administered medications for this visit. ALLERGIES: ALLERGIES Allergen Reactions - Ampicillin GI Upset Intolerance, can take cephalosporins - Avelox [Moxifloxaci* Mental Status Change - Bactrim [Sulfametho* Vomiting - Doxycycline GI Upset - Steroids [Corticost* Other: See Comments Anxiety, jittery and head feels funny PAST MEDICAL HISTORY Diagnosis Date - Adjustment disorder with depressed mood - Kidney stones - Mixed hyperlipidemia Hyperlipidemia - Other and unspecified hyperlipidemia in the past - Type II or unspecified type diabetes mellitus without mention of complication, not stated as uncontrolled PAST SURGICAL HISTORY Procedure Laterality Date - APPENDECTOMY - ESWL kidney stones - PAST SURGICAL HISTORY OF tubal preg - PAST SURGICAL HISTORY OF remote left leg/ ankle with plates and screws - PAST SURGICAL HISTORY OF 11/29/2011 Bunion Removed - REMOVAL GALLBLADDER - REMOVAL OF OVARY(S) bilaterally with hysterectomy - TOTAL ABD HYSTERECTOMY+BLAD REPR FAMILY HISTORY Problem Relation Age of Onset - Adopted: Yes - Diabetes Father - Diabetes Maternal Grandmother - Heart Father - Hypertension Father - Lipids Father - None Sister - Diabetes Daughter - Cancer Sister thyroid. 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 Has taken care of grandson. Reviewed current medications, allergies, past medical history, surgical history, family history and social history today. REVIEW OF SYSTEMS RESPIRATORY: Negative for cough, hemoptysis, wheezing, COPD, dyspnea or shortness of breath CARDIOVASCULAR: Negative for chest pain, leg swelling, hypertension, CHF or palpitations GI: Negative for abdominal discomfort, blood in stools or black stools, change in bowel habit : No history of dysuria, frequency or incontinence All other reviewed and negative other than HPI. HEALTH MAINTENANCE: Reviewed health maintenance issues today and recommended the following in detail. VITALS: BP 104/70 Pulse 76 Temp 36.8 ?C (98.2 ?F) (Tympanic) Resp 16 Wt 71.2 kg (157 lb) BMI 27.38 kg/m? Last 4 Encounter Wt Readings: Date: Wt: 11/23/2017 71.2 kg (157 lb) 09/28/2017 72.6 kg (160 lb) 09/10/2017 73.5 kg (162 lb) 08/13/2017 72.1 kg (159 lb) PHYSICAL EXAMINATION: General appearance: Well appearing, alert, in no acute distress, well-hydrated, well nourished. Initially was unable to stand to do orthos but was able to get up from a chair. Walk to and from table for both exam and ekg and stand for rhomberg without any issues. Skin: Skin color, texture, turgor normal, no suspicious rashes or lesions Head: Normocephalic, no masses, lesions, tenderness or abnormalities Eyes: Anicteric sclera. Pupils are equally round and reactive to light. Extraocular movements are intact. Ears: External ears normal, canals clear Nose/Sinuses: Nares normal, septum midline, mucosa normal, no drainage or sinus tenderness Oropharynx: Lips, mucosa, and tongue normal, teeth and gums normal, oropharynx normal Neck: Supple, no adenopathy; thyroid symmetric, normal size, no bruits Back: no cva tenderness. Lungs: Lungs clear to auscultation. No wheezing, rhonchi, rales Heart: RRR without murmur, gallop, or rubs. No ectopy Abdomen: Normal abdominal exam, Abdomen soft, non-tender. Bowel sounds normal. No masses, organomegaly Extremities: No deformities, edema, skin discoloration, clubbing or cyanosis. Good capillary refill. Neuro: Gait normal. Reflexes normal and symmetric. Sensation grossly intact., able to get up and walk around the room without difficulty to me Neg rhomberg. PSYCH:Affect normal. Normal speech. Normal eye contact ASSESSMENT/PLAN: 1. Dark urine - ICD9: 791.9, ICD10: R82.99 (primary diagnosis) - encourage fluids. Clinically appears stable. Cover for possible uti. Can take keflex. Will check culture. - Red flags for re-assessment reviewed with patient in detail. - rto in two weeks. - UA DIP B/O 2. Lightheaded - ICD9: 780.4, ICD10: R42 - as above. Check albs. - CBC + DIFF - COMP METABOLIC PANEL - ECG COMPLETE W INTERPRETATION 3. Malaise - ICD9: 780.79, ICD10: R53.81 - as aboe. 4. Acute cystitis with hematuria - ICD9: 595.0, ICD10: N30.01 - URINE CULTURE 5. Pyuria - ICD9: 791.9, ICD10: N39.0 acute - UA positive for deborah esterase and hematuria - Send urine for culture - Patient education for prevention given - URINE CULTURE 6. 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 manifestations (HCC) - ICD9: 250.60, ICD10: E11.49 -stable. Too Amin MD RTO in two weeks. and prn. CNOV Observed: 11/23/2017 Status: COMPLETED Source: [place] 12:[address] [facility] REPOSITORY Office Visit (FAMPWS) YAMILEX MERCADO ([id number]) 1955 F Date Time Provider Department 11/23/17 12:40 PM [place]OO AM[place] [facility] [place] visit today, we recorded the following information about you: Temperature Pulse Respiration Blood pressure 98.2 degrees 76/minute 16/minute 104/70 Weight 71.2 kg Abby Boss TRAN 11/23/2017 12:40 PM Signed When going for eye exam please have provider fax a copy of exam results to [phone]. Thank you! Abby Frostpatricio [place] 11/23/2017 1:03 PM Addendum Air conditioner was broken during this heat spell and has been sweating a lot. States that doesn't feel that is urinating as much as she normally does. Reports that urine is dark when she does go. Her mouth is always dry. Just doesn't feel right. Admits to some dizziness. Attempted orthostatic vital signs. Completed supine and then upon sitting had dizziness like a weight in her head. After completing the sitting blood pressure when went to standing was still dizzy and needed to sit down. Too Amin MD 11/23/2017 1:54 PM Signed Patient presents with: Dehydration HPI: Patient presents today for office visit for evaluation. Nursing Notes: Abby Boss TRAN 11/23/2017 1:03 PM Addendum Air conditioner was broken during this heat spell and has been sweating a lot. States that doesn't feel that is urinating as much as she normally does. Reports that urine is dark when she does go. Her mouth is always dry. Just doesn't feel right. Admits to some dizziness. Attempted orthostatic vital signs. Completed supine and then upon sitting had dizziness like a weight in her head. After completing the sitting blood pressure when went to standing was still dizzy and needed to sit down. BP w/Orthostatic Vitals Date and Time Orthostatic BP Orthostatic Pulse BP Pulse BP Position BP Site BP Cuff Size 11/23/17 1259 128/83 76 -- -- Sitting Left Arm Regular Adult 11/23/17 1258 108/71 77 -- -- Supine Left Arm Regular Adult 11/23/17 1243 -- -- 104/70 76 -- -- -- Peak Flow Date and Time PF Resp 11/23/17 1243 -- 16 Component Latest Ref Rng AND Units 11/23/2017 Glucose, Urine Neg mg/dL neg Bilirubin, Urine Neg small Ketones, Urine Neg neg Specific [place], Ur 1.005 - 1.030 1.030 Hemoglobin/Blood,Ur Neg moderate pH, Urine 4.5 - 8.0 6.0 Protein, Urine Neg mg/dL trace Urobilinogen, Urine Normal (<1.1) EU normal Nitrites Neg neg Leukocytes Neg trace Color/Appearance comment: jamey/clear Quality Check yes/no Yes Has been feeling badly for a couple of days. generalized malaise. Has a dry mouth. Her air conditioner had stopped. Her appt has been very hot. Not drinking as much. Says she has not been urinating as much. Although was able to give us a urinary sample today. Has some sinus congestion. Does admit to anxiety issues. Feels lightheaded. No true vertigo. Occasionally presyncopal. Not syncopal. Mild headache. Vision has been ok. No focal numbness or weakness. No new tinnitus. No new cough or congestion. She is feeling very tired. Does have a remote hx of kidney stones. No recent flank pain or back pain. Sugar was 129 before coming to the office. MEDICATIONS: Current Outpatient Prescriptions: PARoxetine (PAXIL) 40 mg tablet Take 1 tablet by mouth once daily. albuterol HFA (VENTOLIN HFA) 90 mcg/actuation inhaler Inhale 2 Puffs as instructed every 4 hours as needed for Wheezing/Shortness of Breath. cyclobenzaprine (FLEXERIL) 10 mg tablet take 1 tablet by mouth once daily Cholecalciferol, Vitamin D3, 5,000 unit cap Take 1 capsule by mouth once daily. pravastatin (PRAVACHOL) 20 mg tablet Take 1 tablet by mouth daily at bedtime. metFORMIN (GLUCOPHAGE) 850 mg tablet take 1 tablet by mouth twice a day with meals Promethazine-DM (PHENERGAN-DM) 6.25-15 mg/5 mL syrup Take 5 mL by mouth four times daily as needed. COMPOUNDED PRESCRIPTION Powerstep Original Full Length` propranolol (INDERAL) 10 mg tablet Take 1 tablet by mouth twice daily. (Patient not taking: Reported on 09/10/2017 ) cephALEXin (KEFLEX) 500 mg capsule Take 1 capsule by mouth three times daily. ibuprofen (MOTRIN) 600 mg tablet take 1 tablet by mouth every 8 hours if needed for pain blood sugar diagnostic (BLOOD GLUCOSE TEST) test strip Test twice daily COMPOUNDED PRESCRIPTION powerstep orthoticsDx: posterior tibial tendon dysfunction flatfoot cyclobenzaprine (FLEXERIL) 10 mg tablet Take 10 mg by mouth once daily. polyethylene glycol 3350 (MIRALAX) 17 gram/dose powder Take 17 g by mouth once daily. For constipation from narcotics. (Patient not taking: Reported on 11/23/2017 ) budesonide (PULMICORT FLEXHALER) 180 mcg/actuation aepb Inhale 2 Puffs as instructed twice daily. (Patient not taking: Reported on 09/10/2017 ) Cholecalciferol, Vitamin D3, 2,000 unit cap Take 1 capsule by mouth once daily. calcium carbonate (CALTRATE) 600 mg (1,500 mg) tab Take 1 tablet by mouth once daily. (Patient not taking: Reported on 11/23/2017 ) blood sugar diagnostic (ACCU-CHEK JIMMIE) test strip Use for blood sugar testing once daily and as needed, 250.00 Lancets (ACCU-CHEK MULTICLIX LANCET) [facility] [place] Test blood sugar once daily. No current facility-administered medications for this visit. ALLERGIES: ALLERGIES Allergen Reactions - Ampicillin GI Upset Intolerance, can take cephalosporins - Avelox [Moxifloxaci* Mental Status Change - Bactrim [Sulfametho* Vomiting - Doxycycline GI Upset - Steroids [Corticost* Other: See Comments Anxiety, jittery and head feels funny PAST MEDICAL HISTORY Diagnosis Date - Adjustment disorder with depressed mood - Kidney stones - Mixed hyperlipidemia Hyperlipidemia - Other and unspecified hyperlipidemia in the past - Type II or unspecified type diabetes mellitus without mention of complication, not stated as uncontrolled PAST SURGICAL HISTORY Procedure Laterality Date - APPENDECTOMY - ESWL kidney stones - PAST SURGICAL HISTORY OF tubal preg - PAST SURGICAL HISTORY OF remote left leg/ ankle with plates and screws - PAST SURGICAL HISTORY OF 11/29/2011 Bunion Removed - REMOVAL GALLBLADDER - REMOVAL OF OVARY(S) bilaterally with hysterectomy - TOTAL ABD HYSTERECTOMY+BLAD REPR FAMILY HISTORY Problem Relation Age of Onset - Adopted: Yes - Diabetes Father - Diabetes Maternal Grandmother - Heart Father - Hypertension Father - Lipids Father - None Sister - Diabetes Daughter - Cancer Sister thyroid. 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 Has taken care of grandson. Reviewed current medications, allergies, past medical history, surgical history, family history and social history today. REVIEW OF SYSTEMS RESPIRATORY: Negative for cough, hemoptysis, wheezing, COPD, dyspnea or shortness of breath CARDIOVASCULAR: Negative for chest pain, leg swelling, hypertension, CHF or palpitations GI: Negative for abdominal discomfort, blood in stools or black stools, change in bowel habit : No history of dysuria, frequency or incontinence All other reviewed and negative other than HPI. HEALTH MAINTENANCE: Reviewed health maintenance issues today and recommended the following in detail. VITALS: BP 104/70 Pulse 76 Temp 36.8 ?C (98.2 ?F) (Tympanic) Resp 16 Wt 71.2 kg (157 lb) BMI 27.38 kg/m? Last 4 Encounter Wt Readings: Date: Wt: 11/23/2017 71.2 kg (157 lb) 09/28/2017 72.6 kg (160 lb) 09/10/2017 73.5 kg (162 lb) 08/13/2017 72.1 kg (159 lb) PHYSICAL EXAMINATION: General appearance: Well appearing, alert, in no acute distress, well-hydrated, well nourished. Initially was unable to stand to do orthos but was able to get up from a chair. Walk to and from table for both exam and ekg and stand for rhomberg without any issues. Skin: Skin color, texture, turgor normal, no suspicious rashes or lesions Head: Normocephalic, no masses, lesions, tenderness or abnormalities Eyes: Anicteric sclera. Pupils are equally round and reactive to light. Extraocular movements are intact. Ears: External ears normal, canals clear Nose/Sinuses: Nares normal, septum midline, mucosa normal, no drainage or sinus tenderness Oropharynx: Lips, mucosa, and tongue normal, teeth and gums normal, oropharynx normal Neck: Supple, no adenopathy; thyroid symmetric, normal size, no bruits Back: no cva tenderness. Lungs: Lungs clear to auscultation. No wheezing, rhonchi, rales Heart: RRR without murmur, gallop, or rubs. No ectopy Abdomen: Normal abdominal exam, Abdomen soft, non-tender. Bowel sounds normal. No masses, organomegaly Extremities: No deformities, edema, skin discoloration, clubbing or cyanosis. Good capillary refill. Neuro: Gait normal. Reflexes normal and symmetric. Sensation grossly intact., able to get up and walk around the room without difficulty to me Neg rhomberg. PSYCH:Affect normal. Normal speech. Normal eye contact ASSESSMENT/PLAN: 1. Dark urine - ICD9: 791.9, ICD10: R82.99 (primary diagnosis) - encourage fluids. Clinically appears stable. Cover for possible uti. Can take keflex. Will check culture. - Red flags for re-assessment reviewed with patient in detail. - rto in two weeks. - UA DIP B/O 2. Lightheaded - ICD9: 780.4, ICD10: R42 - as above. Check albs. - CBC + DIFF - COMP METABOLIC PANEL - ECG COMPLETE W INTERPRETATION 3. Malaise - ICD9: 780.79, ICD10: R53.81 - as aboe. 4. Acute cystitis with hematuria - ICD9: 595.0, ICD10: N30.01 - URINE CULTURE 5. Pyuria - ICD9: 791.9, ICD10: N39.0 acute - UA positive for deborah esterase and hematuria - Send urine for culture - Patient education for prevention given - URINE CULTURE 6. 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 manifestations (HCC) - ICD9: 250.60, ICD10: E11.49 -stable. Too Amin MD RTO in two weeks. and prn. Referring Provider: SELF [[id number]] Allergies As of Date: 11/23/2017 Noted Allergy Reaction AMPICILLIN 12/17/2006 8 - GI Upset Comments: Intolerance, can take cephalosporins AVELOX (MOXIFLOXACIN HCL) 09/21/2010 1 - Mental Status Change BACTRIM (SULFAMETHOXAZOLE-TRIMETH*03/05/2017 11 - Vomiting DOXYCYCLINE 12/17/2006 8 - GI Upset STEROIDS (CORTICOSTEROIDS (GLUCOC*12/12/2013 14 - Other: See Comments Comments: Anxiety, jittery and head feels funny Date Reviewed: 11/23/2017 Reviewed by: Abby Boss LPN - Fully Assessed Reason for Visit: Dehydration [812] Primary Visit Diagnosis:Dark urine [R82.99] Other Visit Diagnoses:Lightheaded [R42] Malaise [R53.81] Acute cystitis with hematuria [N30.01] Pyuria [N39.0] 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 manifestations (HCC) [E11.49] Order(s):UA DIP B/O [8701801] Order #: [id number] ibuprofen (MOTRIN) 600 mg tabletTake 1 tablet by mouth every 8 hours as needed.Disp: 90 tabletRfl: 1 URINE CULTURE [SQURCUL] Order #: [id number] CBC + DIFF [SQCBCDIF] Order #: [id number] FUTURE COMP METABOLIC PANEL [SQCMP] Order #: [id number] FUTURE ECG COMPLETE W INTERPRETATION [ECG01] Order #: [id number] FUTURE cephALEXin (KEFLEX) 250 mg capsuleTake 1 capsule by mouth four times daily for 7 days.Disp: 28 capsuleRfl: 0 Prescriptions as of 11/23/2017 Sig: PAROXETINE 40 MG TABLET Take 1 tablet by mouth once d* ALBUTEROL SULFATE HFA 90 MCG/* Inhale 2 Puffs as instructed * CYCLOBENZAPRINE 10 MG TABLET take 1 tablet by mouth once d* CHOLECALCIFEROL (VITAMIN D3) * Take 1 capsule by mouth once * PRAVASTATIN 20 MG TABLET Take 1 tablet by mouth daily * METFORMIN 850 MG TABLET take 1 tablet by mouth twice * IBUPROFEN 600 MG TABLET Take 1 tablet by mouth every * CEPHALEXIN 250 MG CAPSULE Take 1 capsule by mouth four * PROMETHAZINE-DM 6.25 MG-15 MG* Take 5 mL by mouth four times* COMPOUNDED PRESCRIPTION Powerstep Original Full Lengt* PROPRANOLOL 10 MG TABLET Take 1 tablet by mouth twice * Patient not taking: Reported on 09/10/2017 CEPHALEXIN 500 MG CAPSULE Take 1 capsule by mouth three* BLOOD SUGAR DIAGNOSTIC STRIPS Test twice daily COMPOUNDED PRESCRIPTION powerstep orthotics Dx: post* CYCLOBENZAPRINE 10 MG TABLET Take 10 mg by mouth once clovis* POLYETHYLENE GLYCOL 3350 17 G* Take 17 g by mouth once daily* Patient not taking: Reported on 11/23/2017 BUDESONIDE 180 MCG/ACTUATION * Inhale 2 Puffs as instructed * Patient not taking: Reported on 09/10/2017 CHOLECALCIFEROL (VITAMIN D3) * Take 1 capsule by mouth once * CALCIUM CARBONATE 600 MG CALC* Take 1 tablet by mouth once d* Patient not taking: Reported on 11/23/2017 BLOOD SUGAR DIAGNOSTIC STRIPS Use for blood sugar testing o* LANCETS Test blood sugar once daily. Medication notes this encounter CHOLECALCIFEROL (VITAMIN D3) 2,000 UNIT CAPSULE >> Abby Boss LPN 11/23/2017 12:38 PM >> ABBY BOSS LPN SunNov 23, 2017 12:38 PM Problem List As Of Date 11/23/2017 Noted Resolved Well controlled type 2 diabetes mellitus with n*INVALID FOR* More... Hyperlipidemia with target LDL less than 70 [E7*INVALID FOR* Chronic low back pain [M54.5, G89.29] INVALID FOR* Depression with anxiety [F41.8] INVALID FOR* More... Fibromyalgia [M79.7] INVALID FOR* Osteoporosis [M81.0] INVALID FOR* More... Tobacco abuse [Z72.0] INVALID FOR* Pain in limb [M79.609] INVALID FOR* Atrophic vaginitis [N95.2] INVALID FOR* Hallux valgus, acquired [M20.10] INVALID FOR* Suture reaction [T81.89XA] INVALID FOR*04/08/2015 Dyspareunia [MNI0978] INVALID FOR* Vitamin D deficiency [E55.9] INVALID FOR* Degenerative disc disease [RVA1834] INVALID FOR* Scoliosis [M41.9] INVALID FOR* Lumbar radiculopathy [M54.16] INVALID FOR* Lumbar canal stenosis [M48.061] INVALID FOR* Essential tremor [G25.0] INVALID FOR* Pyogenic inflammation of bone (HCC) [M86.9] INVALID FOR* Other instructions from your clinician: When going for eye exam please have provider fax a copy of exam results to [phone]. Thank you! Visit Notes: >> Abby Boss LPN SunNov 23, 2017 12:41 PM Status: Addendum Air conditioner was broken during this heat spell and has been sweating a lot. States that doesn't feel that is urinating as much as she normally does. Reports that urine is dark when she does go. Her mouth is always dry. Just doesn't feel right. Admits to some dizziness. Attempted orthostatic vital signs. Completed supine and then upon sitting had dizziness like a weight in her head. After completing the sitting blood pressure when went to standing was still dizzy and needed to sit down. Prescriptions ordered this encounter Disp Refills Start End IBUPROFEN 600 MG TABLET 90 t* 1 11/23/2017 Route: ORAL Sig: Take 1 tablet by mouth every 8 hours as needed. CEPHALEXIN 250 MG CAPSULE 28 c* 0 11/23/2017 11/30/2017 Route: ORAL Sig: Take 1 capsule by mouth four times daily for 7 days. Medications Discontinued During This Encounter ibuprofen (MOTRIN) 600 mg tablet 90 t* 1 05/29/2017 11/23/2017 Sig: take 1 tablet by mouth every 8 hours if needed for pain Disc: Reason for discontinue is not on file. Disposition: Return in about 2 weeks (around 12/07/2017). Follow-up and Disposition History Recorded Encounter Status:Closed by TOO AMIN MD on 11/23/17 12 LEAD ELECTROCARDIOGRAM Observed: 10/25/2017 Status: F Source: [place] 11:56 AM [facility] REPOSITORY [facility] Cardiovascular Services [address] [place] [address] 12 Lead EKG 10/24/17 1007 MR#: [id number] Acct: [id number] Name: YAMILEX MERCADO Rep #: [id number] : 1955 61 From: Chinedu Hart MD Attending Dr: Status: DEP ER Ordering Dr: Sandhya Lamb DO Date: 10/24/17 Location: ED Sex: F C Admitted: Test Reason : HEADACHE Blood Pressure : / mmHG Vent. Rate : 082 BPM Atrial Rate : 082 BPM P-R Int : 156 ms QRS Dur : 100 ms QT Int : 392 ms P-R-T Axes : 027 -04 055 degrees QTc Int : 457 ms Normal sinus rhythm Incomplete right bundle branch block Confirmed by KATIA LANZA, CHINEDU ([id number]), news copy editor DONNA HOSKINS ([id number]) on 10/25/2017 11:55:57 AM Referred By: BARBRA Confirmed By:CHINEDU HART MD 10/25/17 1155 Date Chinedu Hart MD CC: Ashli Silva; Sandhya Lamb DO Signed DISCHARGE INSTRUCTION Observed: 10/24/2017 Status: F Source: [place] 12:30 PM [facility] REPOSITORY [facility] Medical Records Department [address] [place] [address] Discharge Instruction 10/24/17 1229 MR#: [id number] Acct: [id number] Name: YAMILEX MERCADO Pooja Rep #: [id number] : 1955 61 From: Sandhya Lamb DO PCP: Ashli Silva Status: REG ER ED Disposition - Plan for ED Patient: Chief Complaint: Headache Instructions: ED Cephalgia Unspecified, ED Paraesthesias Referrals: Ashli Silva PA [Primary Care Provider] - 3-5 Days What to do if you have Problems For any increased pain, shortness of breath, bleeding, nausea or vomiting, chest pain, or any unexpected problems, contact your Primary Care Provider. Call [facility] ([phone]) or report to the closest Emergency Room. Call 911 if necessary. 10/24/17 1230 <Electronically signed by Sandhya Lamb DO> Date Sandhya Lamb DO Cosigner Signature (If Indicated): Date CC: Ashli Silva EMERGENCY DEPARTMENT Observed: 10/24/2017 Status: F Source: [place] SUMMARY 12:29 PM [facility] REPOSITORY [facility] Medical Records Department [address] [place] [address] Emergency Department Summary 10/24/17 1226 MR#: [id number] Acct: [id number] Name: YAMILEX MERCADO Rep #: [id number] : 1955 61 From: Sandhya Lamb DO PCP: Ashli Silva Status: REG ER - ER Visit Summary Date of Service: 10/24/17 Chief Complaint: [Feeling weird] History of Present Illness: The patient is a 61 F [presents the emergency department with very vague complaints. Patient states that she did not feel well after using her inhaler last night prior to going to bed. Patient states that she has a little bit of a left-sided headache and some pressure in her left ear. Patient states that her left arm this morning when she woke up at 4 AM felt somewhat numb and weird. Patient is not sure if she is having an anxiety attack. Patient states that she gets nervous and then things start to feel weird. Patient has a history of asthma, diabetes, high cholesterol, fibromyalgia, and anxiety. Patient also gives history that she recently received a tablet from her family and she has been playing games on it. At times the tablet will make funny noises and lights will flash and she is not sure if she may have gotten electrocuted by it and that she typically uses her left hand to play on the tablet.] Physical Examination: [HEENT-PERRLA, EOMI. Cranial nerves II through XII grossly intact. TMs clear. Mucous membranes moist. No adenopathy. Cardiovascular-regular rate and rhythm without murmur or ectopy Lungs-clear to auscultation, chest wall stable without crepitus or subcu emphysema Abdomen-normoactive bowel sounds, soft, nontender, no rebound or rigidity, no peritoneal signs. Neuro nbpl-dmatqx-dzts and heel marti testing within normal limits, negative Romberg, negative pronator drift, fundi benign. NIH stroke scale is a 0 Extremities-intact 4, normal range of motion, normal pulses, atraumatic] Test Results: [EKG obtained on arrival shows a sinus rhythm with ventricular rate of 82 bpm. CBC with differential obtained was unremarkable. Chemistries unremarkable. CT scan of the brain showed nothing acute other than partial opacification of the left sphenoid sinus.] Emergency Department Course and Treatment: [Given the patient is driving I did not give her anything here for anxiety and she actually refused anything for anxiety here. Patient states that she will discuss further with nurse practitioner Jj Silva.] Treatment Plan: [Patient to follow-up with her care physician]. Patient's paresthesias in the left arm are currently resolved. Disposition: [Discharged home in stable condition.] Impression: [Headache Paresthesias-resolved] This note was generated with [employer] dictation software. It may contain incorrect words, spelling, and punctuation that were not noted in review of the chart prior to signing ED Disposition - Plan for ED Patient: Chief Complaint: Headache Referrals: Ashli Silva PA [Primary Care Provider] - What to do if you have Problems For any increased pain, shortness of breath, bleeding, nausea or vomiting, chest pain, or any unexpected problems, contact your Primary Care Provider. Call [facility] ([phone]) or report to the closest Emergency Room. Call 911 if necessary. 10/24/17 1229 <Electronically signed by Sandhya Lamb DO> Date Sandhya Lamb DO Cosigner Signature (If Indicated): Date CC: Ashli Silva CBC W/DIFF, AUTOMATED Collected: 10/24/2017 Status: F Source: [place] 10:39 AM [facility] REPOSITORY TYPE CODE TESTS RESULT OUT OF RANGE REFERENCE UNITS LAB L100.1000 4.4-11.0 K/mm3 Normal WBC 6.4 LAB L100.1200 4.2-5.4 M/mm3 Low RBC 3.94 LAB L100.1300 12.0-15.0 g/dl Low HGB 11.5 LAB L100.1400 37-47 % Low HCT 36.7 LAB L100.1500 81-99 fL Normal MCV 93.1 LAB L100.1600 27.0-32.0 pg Normal MCH 29.2 LAB L100.1700 32-36 g/gl Low MCHC 31.3 LAB L100.1810 11.6-14.6 % Normal RDW CV 14.1 LAB L100.1820 35.1-43.9 fl High RDW SD 48.1 LAB L100.1900 150-450 K/mm3 Normal PLT 197 LAB L100.2000 6.2-12.0 fl Normal MPV 10.6 LAB L100.2100 47-70 % Normal NEUT% 56.5 LAB L100.2200 19-41 % Normal LY% 30.9 LAB L100.2300 0-10 % Normal MONO% 8.2 LAB L100.2400 0-5 % Normal EO% 3.7 LAB L100.2500 0-1 % Normal BASO% 0.5 LAB L100.2550 0.0-0.9 % Normal IM GRAN % 0.200 Result Comment: IG% - Immature Granulocytes (promyelocytes, myelocytes and metamyelocytes) > 1% indicates that a LEFT SHIFT is Present. LAB L100.2620 2.0-7.7 X10 3/uL Normal Absolute Neut 3.6 LAB L100.2720 0.83-4.51 X10 3/ul Normal Absolute Lymph 1.99 Performed By: #### L100.0100 #### [facility] [address] [place] [address]. [place], [place], [address] BASIC METABOLIC Collected: 10/24/2017 Status: F Source: [place] PROFILE (BMP) 10:39 AM [facility] REPOSITORY TYPE CODE TESTS RESULT OUT OF RANGE REFERENCE UNITS LAB L501.0100 74-106 mg/dL High GLU 150 Result Comment: Fasting Glucose result greater than or equal to 126 mg/dL suggests DIABETES MELLITUS per A.D.A. criteria. Please note revised GLUCOSE reference range effective 2017. LAB L501.1000 7-18 mg/dL Normal BUN 13 LAB L501.1100 0.55-1.02 mg/dL High CREAT,SERUM 1.21 Result Comment: The validity of the calculated GFR AND GFRAA in patients over 70 years has not been determined. Clinical correlation is essential. LAB L501.1110 >60 mL/min Low EST GFR 48 Result Comment: Non- GFR Calc LAB L501.1115 >60 mL/min Low EST GFR - AA 58 Result Comment: GFR Calc LAB L501.1255 ml/min Normal Estimated CRCL 39.37 LAB L501.1300 10-20 RATIO Normal BUN/CRE 10.7 LAB L501.2200 8.5-10 mg/dL Normal .1 CA 8.9 LAB L501.5300 136-14 mmol/L Normal 5 NA 141 LAB L501.5600 3.5-5. mmol/L Normal 1 K 3.8 LAB L501.5900 98-107 mmol/L Normal CL 106 LAB L501.6100 21.0-3 mmol/L Normal 2.0 CO2 29.0 LAB L501.6200 5-15 Normal GAP 6 Performed By: #### L500.2500, L501.4010 #### [facility] [address] [place], [place], [address] TROPONIN-I Collected: 10/24/2017 Status: F Source: [place] 10:39 AM [facility] REPOSITORY TYPE CODE TESTS RESULT OUT OF RANGE REFERENCE UNITS LAB L501.4010 <0.045 ng/mL Normal < 0.015 TROPONIN-I Result Comment: TROPONIN-I EXPECTED VALUES <0.045 Negative 0.045 - 0.590 Consistent with Cardiac Damage > OR = 0.600 Critical Value Not every elevated troponin is indicative of MN. These values should be used with clinical judgement in examining the patient's clinical picture for diagnosis. To establish a diagnosis of MN versus myocardial injury, there must be a demonstrated rise and/or fall in the troponin values, in addition to ischemic symptoms, EKG changes, new regional wall motion abnormality, and/or angiographical evidence. PLEASE NOTE: REFERENCE RANGES EDITED 17 Performed By: #### L500.2500, L501.4010 #### [facility] [address] [place], [address] BRAIN/HEAD WITHOUT Observed: 10/24/2017 Status: F Source: [place] CONTRAST 10:09 AM [facility] REPOSITORY [facility] Imaging Services [address] [place] [address] Brain/Head without Contrast MR#: [id number] Acct: [id number] Name: YAMILEX MERCADO Rep #: [id number] : 1955 F 61 From: Temo Dukes MD PCP: Ashli Silva Status: REG ER Study: Brain/Head without Contrast Date of Exam: 10/24/17 Exam# [id number] Ordering Dr: Sandhya Lamb DO STUDY: CT BRAIN WITHOUT CONTRAST REASON FOR EXAM: Female, 61 years old. Paresthesias of the left arm. RADIATION DOSAGE (If Supplied By Facility): CTDIvol = ( 44.99 ) mGy, DLP = ( 745.49 ) mGycm TECHNIQUE: Transaxial CT imaging of the brain was performed without administration of intravenous contrast material. Individualized dose optimization techniques were used for this CT. COMPARISON: None. FINDINGS: Normal soft tissue structures. Normal calvarium. Normal size ventricles and extra-axial spaces for the patient's age. Normal white matter tracts of the cerebral hemispheres. Normal basal ganglia and thalami. Normal brainstem. Normal cerebellum. There is no intracranial hemorrhage. There are no findings of an acute ischemic infarction. Atherosclerotic calcification of the vertebral arteries and cavernous portions of the internal carotid arteries bilaterally. Dense calcification of the cerebral falx. Partial opacification of the left sphenoid sinus. CT/Brain/Head without Contrast IMPRESSION: No acute abnormality is seen. Partial opacification of the left sphenoid sinus. Electronically Signed: Temo Dukes MD at 11:02 EDT Tel [phone], Service support , CC: Ashli Silva; Sandhya Lamb DO Air Shovel Operator: Signed ALBUMIN/CREAT RATIO Collected: 10/10/2017 Status: F Source: [place] [address]:38 AM [facility] REPOSITORY TYPE CODE TESTS RESULT OUT OF REFERENCE UNITS RANGE LAB UCRR 20-300 mg/dL 96.3 Creatinine,Ur ine,Ran LAB UALBR 0.0-23.0 mg/L <12.0 Albumin Urine Random LAB UALBCR 0-30 mg/g Not Albumin/Creat calculated Ratio Performed By: #### UACR #### [facility] [address] [place], [place] [address] SED RATE WESTERGREN Collected: 10/10/2017 Status: F Source: [place] 9:15 AM [facility] REPOSITORY TYPE CODE TESTS RESULT OUT OF REFERENCE UNITS RANGE LAB WSR 0-20 mm/hr Sed Rate Westergren 12 Performed By: #### WSR, CBCDIF, CRP, IRON, LIPB, TSH #### [facility] [address] [place], [place] [address] CBC AND DIFFERENTIAL Collected: 10/10/2017 Status: F Source: [place] 9:15 AM [facility] REPOSITORY TYPE CODE TESTS RESULT OUT OF REFERENCE UNITS RANGE LAB WBC 3.70-11.00 k/uL WBC 8.76 LAB RBC 3.90-5.20 m/uL RBC 3.93 LAB HGB 11.5-15.5 g/dL Hemoglobin 11.7 LAB HCT 36.0-46.0 % Hematocrit 37.7 LAB MCV 80.0-100.0 fL MCV 95.9 LAB MCH 26.0-34.0 pG MCH 29.8 LAB MCHC 30.5-36.0 g/dL MCHC 31.0 LAB RDWCV 11.5-15.0 % RDW-CV 14.3 LAB PLTCT 150-400 k/uL Platelet Count 218 LAB MPV 9.0-12.7 fL MPV 11.8 LAB ANEUT % Neut% 53.3 LAB AANEUT 1.45-7.50 k/uL Abs Neut 4.65 LAB ALYMP % Lymph% 35.7 LAB AALYMP 1.00-4.00 k/uL Abs Lymph 3.13 LAB AMONO % [place]% 7.0 LAB AAMONO <0.87 k/uL Abs [place] 0.61 LAB AEOS % Eosin% 3.3 LAB AAEOS <0.46 k/uL Abs Eosin 0.29 LAB ABASO % Baso% 0.7 LAB AABASO <0.11 k/uL Abs Baso 0.06 LAB AUNRBC 0 /100 WBC NRBCs 0.0 LAB ABNRBC <0.01 k/uL Absolute nRBC <0.01 LAB DTYP DTYPE Auto Diff Performed By: #### WSR, CBCDIF, CRP, IRON, LIPB, TSH #### [facility] [employer] [address] [place], [place] [address] C-REACTIVE PROTEIN Collected: 10/10/2017 Status: F Source: [place] 9:15 AM [facility] REPOSITORY TYPE CODE TESTS RESULT OUT OF REFERENCE UNITS RANGE LAB CRP <0.9 mg/dL C-Reactive 0.4 Protein Performed By: #### WSR, CBCDIF, CRP, IRON, LIPB, TSH #### [address] [address] IRON AND TIBC Collected: 10/10/2017 Status: F Source: [place] 9:15 AM [facility] REPOSITORY TYPE CODE TESTS RESULT OUT OF REFERENCE UNITS RANGE LAB IRN 41-186 ug/dL Iron 47 LAB TIBC 232-386 ug/dL TIBC 374 LAB SAT 15-57 % Low Transferrin Saturatn 13 Performed By: #### WSR, CBCDIF, CRP, IRON, LIPB, TSH #### [facility] [address] [place], [place] [address] LIPID PANEL, BASIC Collected: 10/10/2017 Status: F Source: [place] 9:15 AM [facility] REPOSITORY TYPE CODE TESTS RESULT OUT OF REFERENCE UNITS RANGE LAB CHOL <200 mg/dL Cholesterol 194 Result Comment: <200 mg/dL, Desirable 200-239 mg/dL, Borderline high >239 mg/dL, High LAB TRIGLY <150 mg/dL Triglyceride 113 Result Comment: <150 mg/dL, Normal 150-199 mg/dL, Borderline high 200-499 mg/dL, High >499 mg/dL, Very high LAB HDL >39 mg/dL HDL-Cholesterol 68 Result Comment: 40-59 mg/dL, Acceptable >59 mg/dL, High: Negative risk factor for coronary heart disease <40 mg/dL, Low: Positive risk factor for coronary heart disease LAB LDL <100 mg/dL LDL-Cholesterol High 103 Result Comment: <100 mg/dL, Optimal 100-129 mg/dL, Near optimal/above optimal 130-159 mg/dL, Borderline high 160-189 mg/dL, High >189 mg/dL, Very high Secondary prevention optimal LDL Cholesterol levels are recommended to be < 70 mg/dL LAB NONHDL <130 mg/dL Non HDL Cholesterol 126 Result Comment: <130 mg/dL, Optimal 130-159 mg/dL, Near optimal/above optimal 160-189 mg/dL, Borderline high 190-219 mg/dL, High >219 mg/dL, Very high Secondary prevention optimal non HDL Cholesterol levels are recommended to be < 100 mg/dL LAB FT hrs Fasting Time 0 LAB VLDL <30 mg/dL VLDL Cholesterol 23 LAB TCHDL <5.10 TC:HDL Ratio 2.85 LAB LDLHDL <2.54 LDL:HDL Ratio 1.51 Result Comment: Reference: 1. National Cholesterol Education Program ATP III Guideline At-A-Glance Quick Desk Reference: National Heart, Lung, and Blood [place]. National Institutes of Health. 2001: NIH Publication No. 01-3305. 2. An International Atherosclerosis Society position paper: global recommendations for the management of dyslipidemia: executive summary, Atherosclerosis. 2014: 232(2):410-413. Performed By: #### WSR, CBCDIF, CRP, IRON, LIPB, TSH #### [facility] [employer] [address] [place], [place] [address] TSH Collected: 10/10/2017 Status: F Source: [place] 9:15 AM [facility] REPOSITORY TYPE CODE TESTS RESULT OUT OF RANGE REFERENCE UNITS LAB TSH 0.400-5.500 uU/mL TSH 2.670 Performed By: #### WSR, CBCDIF, CRP, IRON, LIPB, TSH #### [facility] [employer] [address] [place], [place] [address] EMERGENCY DEPARTMENT Observed: 10/03/2017 Status: F Source: [place] SUMMARY 7:17 AM [facility] REPOSITORY [facility] Medical Records Department [address] [place] [address] Emergency Department Summary 10/03/17 0002 MR#: [id number] Acct: [id number] Name: YAMILEX MERCADO Rep #: [id number] : 1955 61 From: Brandi Whaley MD PCP: Ashli Silva Status: DEP ER - ER Visit Summary Date of Service: 10/03/17 Chief Complaint: Possible medication reaction History of Present Illness: The patient is a 61 F presenting due to concern for possible medication reaction. Patient reports that she has a underlying history diabetes high cholesterol essential tremor and anxiety. She also has a history of some recent issues with cough and sinus issues. Patient reports that she was seen by her ear nose and throat who called in a medication for her for bronchitis. Patient reports that she started on this this evening, and following administration of that she started to have a feeling of shaking and head pressure. Patient denies that she had any sort of shortness of breath cough tongue or lip swelling. She denies any rashes. Patient states that she is shaking, but has an underlying history of essential tremor. She reports that this is somewhat worse at this point. Review of systems otherwise negative. Physical Examination: Vital signs are within normal limits, patient is afebrile. General: Patient is well-nourished well-developed and in no acute distress. Head: Normocephalic, atraumatic Eyes: Pupils equal round and reactive bilaterally, extra occular motion intact bialterally ENT: Moist mucous membranes, no lip or tongue swelling Neck: Supple, no lymphadenopathy, no JVD, no meningismus CVS: Heart regular rate and rhythm, no murmurs, rubs or gallops, radial pulses 2+ bilaterally Resp: Respirations nondistressed, lung sounds clear bilaterally Abdomen: Soft, nontender, nondistended, no palpable masses, normal bowel sounds Back: Nontender Extremities: Nontender, atraumatic, active full range of motion, no peripheral edema Skin: warm, no rashes, no petechia Neuro: Alert and oriented x 4, CN 2-12 intact, no lateralizing neurological defecits, patient has no tremor at rest but when she attempts to do anything she has an intention tremor. Psyc: Patient is anxious Test Results: None indicated Emergency Department Course and Treatment: Patient presented due to concern for medication reaction. This does not seem consistent with medication reaction. Patient was reassured by this was recommended to continue her current medical treatment, and follow-up with primary care. Disposition: Discharge Impression: 1. Bronchitis This note was generated with [employer] dictation software. It may contain incorrect words, spelling, and punctuation that were not noted in review of the chart prior to signing ED Disposition - Plan for ED Patient: Disposition: Home or Assisted Living Chief Complaint: Allergic Reaction Diagnosis: Bronchitis Instructions: Acute Bronchitis Referrals: Ashli Silva PA [Primary Care Provider] - 1 Week What to do if you have Problems For any increased pain, shortness of breath, bleeding, nausea or vomiting, chest pain, or any unexpected problems, contact your Primary Care Provider. Call [facility] ([phone]) or report to the closest Emergency Room. Call 911 if necessary. 10/03/17716 <Electronically signed by Brandi Whaley MD> Date Brandi Whaley MD Cosigner Signature (If Indicated): Date CC: Ashli Silva Observed: 10/02/2017 Status: F Source: [place] CULTURE, NOSE 3:25 PM [facility] REPOSITORY Gram Stain Gram Stain No White Blood Cells No organisms seen Nasoph. Cult No Haemophilus, Streptococcus pneumoniae, beta-hemolytic Streptococcus or Staphylococcus aureus isolated. Performed By: #### [id number] #### [facility] [address] [place], [address] GROUP A STREP BY Collected: 09/28/2017 Status: F Source: [place] PCR 3:[address] [facility] REPOSITORY TYPE CODE TESTS RESULT OUT OF REFERENCE UNITS RANGE LAB GASSRC Throat Swab GAS Specimen Source LAB PCRGAS Negative for Group A Strep Group A PCR Streptococcus by PCR. Result Comment: This test was developed and its performance characteristics determined by [facility] [place] ([facility]). It has not been cleared or approved by the FDA. [facility] is regulated under CLIA as qualified to perform high-complexity testing. This test is used for clinical purposes. It should not be regarded as inv estigational or for research. Performed By: #### GASPCR #### [facility] [address] [place], [place] [address] PROGRESS Observed: 09/28/2017 Status: COMPLETED Source: [place] 1:[address] [facility] REPOSITORY HNO ID: [id number] Author: Too Amin Service: (none) Author Type: Physician Type: Progress Notes Filed: 09/28/2017 2:22 PM Note Text: Patient presents with: Cough sinus congestion: for a few days HPI: Patient presents today for office visit for acute visit. ENT: Patient complains of sinus pressure. Duration:started with allergy symptoms a few days ago. Fever: no Headache: headace. Sore throat: Yes. Ear pain: No. Nasal drainage: Yes. Cough: Yes. Sometime hard enough she feels dizzy Shortness of breath: Yes. Nausea: No. Vomiting: No. Diarrhea: No. Previous treatment: mucinex dm. Is going to have additional blood work. Request iron for being cold all the time. Cbc has been normal. MEDICATIONS: Current Outpatient Prescriptions: albuterol HFA (VENTOLIN HFA) 90 mcg/actuation inhaler Inhale 2 Puffs as instructed every 4 hours as needed for Wheezing/Shortness of Breath. PARoxetine (PAXIL) 40 mg tablet Take 1 tablet by mouth once daily. pravastatin (PRAVACHOL) 20 mg tablet Take 1 tablet by mouth daily at bedtime. metFORMIN (GLUCOPHAGE) 850 mg tablet take 1 tablet by mouth twice a day with meals calcium carbonate (CALTRATE) 600 mg (1,500 mg) tab Take 1 tablet by mouth once daily. COMPOUNDED PRESCRIPTION Powerstep Original Full Length` propranolol (INDERAL) 10 mg tablet Take 1 tablet by mouth twice daily. (Patient not taking: Reported on 09/10/2017 ) cephALEXin (KEFLEX) 500 mg capsule Take 1 capsule by mouth three times daily. cyclobenzaprine (FLEXERIL) 10 mg tablet take 1 tablet by mouth once daily Cholecalciferol, Vitamin D3, 5,000 unit cap Take 1 capsule by mouth once daily. ibuprofen (MOTRIN) 600 mg tablet take 1 tablet by mouth every 8 hours if needed for pain blood sugar diagnostic (BLOOD GLUCOSE TEST) test strip Test twice daily COMPOUNDED PRESCRIPTION powerstep orthoticsDx: posterior tibial tendon dysfunction flatfoot cyclobenzaprine (FLEXERIL) 10 mg tablet Take 10 mg by mouth once daily. polyethylene glycol 3350 (MIRALAX) 17 gram/dose powder Take 17 g by mouth once daily. For constipation from narcotics. budesonide (PULMICORT FLEXHALER) 180 mcg/actuation aepb Inhale 2 Puffs as instructed twice daily. (Patient not taking: Reported on 09/10/2017 ) Cholecalciferol, Vitamin D3, 2,000 unit cap Take 1 capsule by mouth once daily. blood sugar diagnostic (ACCU-CHEK JIMMIE) test strip Use for blood sugar testing once daily and as needed, 250.00 Lancets (ACCU-CHEK MULTICLIX LANCET) [facility] [place] Test blood sugar once daily. No current facility-administered medications for this visit. ALLERGIES: ALLERGIES Allergen Reactions - Ampicillin GI Upset Intolerance, can take cephalosporins - Avelox [Moxifloxaci* Mental Status Change - Bactrim [Sulfametho* Vomiting - Doxycycline GI Upset - Steroids [Corticost* Other: See Comments Anxiety, jittery and head feels funny PAST MEDICAL HISTORY Diagnosis Date - Adjustment disorder with depressed mood - Kidney stones - Mixed hyperlipidemia Hyperlipidemia - Other and unspecified hyperlipidemia in the past - Type II or unspecified type diabetes mellitus without mention of complication, not stated as uncontrolled PAST SURGICAL HISTORY Procedure Laterality Date - APPENDECTOMY - ESWL kidney stones - PAST SURGICAL HISTORY OF tubal preg - PAST SURGICAL HISTORY OF remote left leg/ ankle with plates and screws - PAST SURGICAL HISTORY OF 11/29/2011 Bunion Removed - REMOVAL GALLBLADDER - REMOVAL OF OVARY(S) bilaterally with hysterectomy - TOTAL ABD HYSTERECTOMY+BLAD REPR FAMILY HISTORY Problem Relation Age of Onset - Adopted: Yes - Diabetes Father - Diabetes Maternal Grandmother - Heart Father - Hypertension Father - Lipids Father - None Sister - Diabetes Daughter - Cancer Sister thyroid. 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 Has taken care of grandson. Reviewed current medications, allergies, past medical history, surgical history, family history and social history today. REVIEW OF SYSTEMS All other reviewed and negative other than HPI. VITALS: BP 92/62 Pulse 72 Temp 37.4 ?C (99.4 ?F) (Tympanic) Resp 16 Wt 72.6 kg (160 lb) SpO2 98% BMI 27.90 kg/m? Last 4 Encounter Wt Readings: Date: Wt: 09/28/2017 72.6 kg (160 lb) 09/10/2017 73.5 kg (162 lb) 08/13/2017 72.1 kg (159 lb) 05/23/2017 68.9 kg (152 lb) PHYSICAL EXAMINATION: General appearance: Well appearing, alert, in no acute distress, well-hydrated, well nourished. Skin: Skin color, texture, turgor normal, no suspicious rashes or lesions Head: Normocephalic, no masses, lesions, tenderness or abnormalities Eyes: Anicteric sclera. Pupils are equally round and reactive to light. Extraocular movements are intact. Ears: External ears normal, canals clear Nose/Sinuses: Nares normal, septum midline, mucosa normal, no drainage or sinus tenderness Oropharynx: Lips, mucosa, and tongue normal, teeth and gums normal, oropharynx normal Neck: Supple, no adenopathy Lungs: Lungs clear to auscultation. No wheezing, rhonchi, rales Heart: RRR without murmur, gallop, or rubs. No ectopy Abdomen: Normal abdominal exam, Abdomen soft, non-tender. Bowel sounds normal. No masses, organomegaly Extremities: No deformities, edema, skin discoloration, clubbing or cyanosis. Good capillary refill. ASSESSMENT/PLAN: 1. URI, acute - ICD9: 465.9, ICD10: J06.9 (primary diagnosis) - Discussed viral etiology and rationale for treatment. - Rapid strep negative in office today - Symptomatic treatment with prn analgesia - Supportive care with fluids and rest - Follow up in one week if symptoms persist or sooner if worsening of symptoms - requests codeine for cough. Advised I would avoid. Willing to try below. Advised to limit use with paxil. Discussed risks and benefits of new medication with the patient. Advised them to call if any side effects or questions. - PROMETHAZINE-DM 6.25 MG-15 MG/5 ML SYRUP 2. Pharyngitis, unspecified etiology - ICD9: 462, ICD10: J02.9 - Rapid Strep negative in the office today - RAPID STREP TEST B/O - GROUP A STREPTOCOCCUS BY PCR - PROMETHAZINE-DM 6.25 MG-15 MG/5 ML SYRUP 3. Cough - ICD9: 786.2, ICD10: R05 - as above. 4. Cold intolerance - ICD9: 780.99, ICD10: R68.89 - IRON + TIBC - TSH BLD 5. 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 manifestations (HCC) - ICD9: 250.60, ICD10: E11.49 - IRON + TIBC Too Amin MD CNOV Observed: 09/28/2017 Status: COMPLETED Source: [place] 1:40 PM [facility] REPOSITORY Office Visit (FAMPWS) YAMILEX MERCADO ([id number]) 1955 F Date Time Provider Department 09/28/17 1:40 PM [facility] During your visit today, we recorded the following information about you: Temperature Pulse Respiration Blood pressure 99.4 degrees 72/minute 16/minute 92/62 Weight 72.6 kg Too Amin MD 09/28/2017 2:22 PM Signed Patient presents with: Cough sinus congestion: for a few days HPI: Patient presents today for office visit for acute visit. ENT: Patient complains of sinus pressure. Duration:started with allergy symptoms a few days ago. Fever: no Headache: headace. Sore throat: Yes. Ear pain: No. Nasal drainage: Yes. Cough: Yes. Sometime hard enough she feels dizzy Shortness of breath: Yes. Nausea: No. Vomiting: No. Diarrhea: No. Previous treatment: mucinex dm. Is going to have additional blood work. Request iron for being cold all the time. Cbc has been normal. MEDICATIONS: Current Outpatient Prescriptions: albuterol HFA (VENTOLIN HFA) 90 mcg/actuation inhaler Inhale 2 Puffs as instructed every 4 hours as needed for Wheezing/Shortness of Breath. PARoxetine (PAXIL) 40 mg tablet Take 1 tablet by mouth once daily. pravastatin (PRAVACHOL) 20 mg tablet Take 1 tablet by mouth daily at bedtime. metFORMIN (GLUCOPHAGE) 850 mg tablet take 1 tablet by mouth twice a day with meals calcium carbonate (CALTRATE) 600 mg (1,500 mg) tab Take 1 tablet by mouth once daily. COMPOUNDED PRESCRIPTION Powerstep Original Full Length` propranolol (INDERAL) 10 mg tablet Take 1 tablet by mouth twice daily. (Patient not taking: Reported on 09/10/2017 ) cephALEXin (KEFLEX) 500 mg capsule Take 1 capsule by mouth three times daily. cyclobenzaprine (FLEXERIL) 10 mg tablet take 1 tablet by mouth once daily Cholecalciferol, Vitamin D3, 5,000 unit cap Take 1 capsule by mouth once daily. ibuprofen (MOTRIN) 600 mg tablet take 1 tablet by mouth every 8 hours if needed for pain blood sugar diagnostic (BLOOD GLUCOSE TEST) test strip Test twice daily COMPOUNDED PRESCRIPTION powerstep orthoticsDx: posterior tibial tendon dysfunction flatfoot cyclobenzaprine (FLEXERIL) 10 mg tablet Take 10 mg by mouth once daily. polyethylene glycol 3350 (MIRALAX) 17 gram/dose powder Take 17 g by mouth once daily. For constipation from narcotics. budesonide (PULMICORT FLEXHALER) 180 mcg/actuation aepb Inhale 2 Puffs as instructed twice daily. (Patient not taking: Reported on 09/10/2017 ) Cholecalciferol, Vitamin D3, 2,000 unit cap Take 1 capsule by mouth once daily. blood sugar diagnostic (ACCU-CHEK JIMMIE) test strip Use for blood sugar testing once daily and as needed, 250.00 Lancets (ACCU-CHEK MULTICLIX LANCET) [facility] [place] Test blood sugar once daily. No current facility-administered medications for this visit. ALLERGIES: ALLERGIES Allergen Reactions - Ampicillin GI Upset Intolerance, can take cephalosporins - Avelox [Moxifloxaci* Mental Status Change - Bactrim [Sulfametho* Vomiting - Doxycycline GI Upset - Steroids [Corticost* Other: See Comments Anxiety, jittery and head feels funny PAST MEDICAL HISTORY Diagnosis Date - Adjustment disorder with depressed mood - Kidney stones - Mixed hyperlipidemia Hyperlipidemia - Other and unspecified hyperlipidemia in the past - Type II or unspecified type diabetes mellitus without mention of complication, not stated as uncontrolled PAST SURGICAL HISTORY Procedure Laterality Date - APPENDECTOMY - ESWL kidney stones - PAST SURGICAL HISTORY OF tubal preg - PAST SURGICAL HISTORY OF remote left leg/ ankle with plates and screws - PAST SURGICAL HISTORY OF 11/29/2011 Bunion Removed - REMOVAL GALLBLADDER - REMOVAL OF OVARY(S) bilaterally with hysterectomy - TOTAL ABD HYSTERECTOMY+BLAD REPR FAMILY HISTORY Problem Relation Age of Onset - Adopted: Yes - Diabetes Father - Diabetes Maternal Grandmother - Heart Father - Hypertension Father - Lipids Father - None Sister - Diabetes Daughter - Cancer Sister thyroid. 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 Has taken care of grandson. Reviewed current medications, allergies, past medical history, surgical history, family history and social history today. REVIEW OF SYSTEMS All other reviewed and negative other than HPI. VITALS: BP 92/62 Pulse 72 Temp 37.4 ?C (99.4 ?F) (Tympanic) Resp 16 Wt 72.6 kg (160 lb) SpO2 98% BMI 27.90 kg/m? Last 4 Encounter Wt Readings: Date: Wt: 09/28/2017 72.6 kg (160 lb) 09/10/2017 73.5 kg (162 lb) 08/13/2017 72.1 kg (159 lb) 05/23/2017 68.9 kg (152 lb) PHYSICAL EXAMINATION: General appearance: Well appearing, alert, in no acute distress, well-hydrated, well nourished. Skin: Skin color, texture, turgor normal, no suspicious rashes or lesions Head: Normocephalic, no masses, lesions, tenderness or abnormalities Eyes: Anicteric sclera. Pupils are equally round and reactive to light. Extraocular movements are intact. Ears: External ears normal, canals clear Nose/Sinuses: Nares normal, septum midline, mucosa normal, no drainage or sinus tenderness Oropharynx: Lips, mucosa, and tongue normal, teeth and gums normal, oropharynx normal Neck: Supple, no adenopathy Lungs: Lungs clear to auscultation. No wheezing, rhonchi, rales Heart: RRR without murmur, gallop, or rubs. No ectopy Abdomen: Normal abdominal exam, Abdomen soft, non-tender. Bowel sounds normal. No masses, organomegaly Extremities: No deformities, edema, skin discoloration, clubbing or cyanosis. Good capillary refill. ASSESSMENT/PLAN: 1. URI, acute - ICD9: 465.9, ICD10: J06.9 (primary diagnosis) - Discussed viral etiology and rationale for treatment. - Rapid strep negative in office today - Symptomatic treatment with prn analgesia - Supportive care with fluids and rest - Follow up in one week if symptoms persist or sooner if worsening of symptoms - requests codeine for cough. Advised I would avoid. Willing to try below. Advised to limit use with paxil. Discussed risks and benefits of new medication with the patient. Advised them to call if any side effects or questions. - PROMETHAZINE-DM 6.25 MG-15 MG/5 ML SYRUP 2. Pharyngitis, unspecified etiology - ICD9: 462, ICD10: J02.9 - Rapid Strep negative in the office today - RAPID STREP TEST B/O - GROUP A STREPTOCOCCUS BY PCR - PROMETHAZINE-DM 6.25 MG-15 MG/5 ML SYRUP 3. Cough - ICD9: 786.2, ICD10: R05 - as above. 4. Cold intolerance - ICD9: 780.99, ICD10: R68.89 - IRON + TIBC - TSH BLD 5. 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 manifestations (HCC) - ICD9: 250.60, ICD10: E11.49 - IRON + TIBC MD Too Ramos MD 09/28/2017 2:10 PM Addendum Treatment for Viral Upper Respiratory Tract Infections Your body will kill off the virus by itself. Additionally, you can prime your body's immune system. This may help you get better more quickly. 1. Drink lots of fluids - at least one gallon of non-caffeinated liquids per day 2. Make sure you are eating well 3. Get plenty of rest - at least 8 hours of sleep per night for adults and more for children We do not have any medications that kill off these viruses. Antibiotics are used to treat bacterial infections; however, they are not active against viral infections. There are some things that might help you feel better, though. 1. Vaporizers, humidifiers, hot showers, and hot fluids help open respiratory and sinus passages 2. Sudafed is a safe and effective decongestant 3. [place] Nasal [place] may offer relief of nasal and head congestion 4. Judson's Vapor Rub placed on a hot towel and draped over the head may relieve congestion 5. Tylenol and Advil help control fevers and headaches 6. Salt water gargles help relieve sore throats 7. Chloraceptic spray or throat lozenges may also help relieve sore throat symptoms 8. Robitussin DM will help loosen up secretions and also provide relief from a cough Occasionally, viral infections turn into something more serious. You should see your doctor or return to the Urgent Care if: 1. You have fevers for longer than five days 2. You have fevers above 102 degrees 3. You are still sick after 10 days 4. You have shortness of breath or wheezing 5. After several days you are getting worse rather than better [facility] PATIENT INFO I Feel So Sick, Don?t I Need Antibiotics? Did you know. . . There?s only a 1 in 4000 chance that an antibiotic will help most acute upper respiratory infections. But there?s a 1 in 4 chance of diarrhea and a 1 in 50 chance of a skin reaction and a 1 in 1000 chance it?ll cause an ER visit due to some side effect. Antibiotics can also lead to more resistant infections that are harder to treat. Bottom line: There?s little to no benefit to taking antibiotics for most acute upper respiratory tract infections...and the downsides are real. Viruses cannot be treated by antibiotics. Viruses cause most upper respiratory infections, which include head colds, sore throats, bronchitis, and sinus infections. The common cold and influenza do not respond to antibiotics. Less than 10 percent of acute bronchitis cases are caused by bacteria. Most cases of acute ear infections also resolve without antibiotics. Sore throats (pharyngitis) are usually caused by viruses as well. Antibiotics are not recommended unless you have strep throat and only about 15 to 30 percent of pharyngitis cases in children and up to 10 percent of cases in adults are due to strep throat. Almost all cases of acute bacterial sinusitis resolve without antibiotics. There are a few situations in which antibiotics are needed, however. See your health care provider if you have a decreased immune system due to cancer, or if you are taking steroids, have HIV, or have had an organ transplant, or if your symptoms worsen or last longer than 7 to 10 days. Most often you should use the [id number]-[id number] symptomatic treatment/s that your health care provider has recommended. These would include analgesic products such as acetaminophen (Tylenol?), decongestants, antihistamines, salt water gargles, drinking warm tea, and other methods to help treat the symptoms. Also remember that your best defense against getting the flu is to get a flu shot, but this does not, unfortunately, protect you against the many other viruses out in the environment that cause the other kinds of illnesses other than the actual influenza. Referring Provider: SELF [200] Allergies As of Date: 09/28/2017 Noted Allergy Reaction AMPICILLIN 12/17/2006 8 - GI Upset Comments: Intolerance, can take cephalosporins AVELOX (MOXIFLOXACIN HCL) 09/21/2010 1 - Mental Status Change BACTRIM (SULFAMETHOXAZOLE-TRIMETH*03/05/2017 11 - Vomiting DOXYCYCLINE 12/17/2006 8 - GI Upset STEROIDS (CORTICOSTEROIDS (GLUCOC*12/12/2013 14 - Other: See Comments Comments: Anxiety, jittery and head feels funny Date Reviewed: 09/28/2017 Reviewed by: Abby Boss LPN - Fully Assessed Reason for Visit: Cough [28] sinus congestion [Other] Cmt: for a few days Reason For Visit History Recorded Primary Visit Diagnosis:URI, acute [J06.9] Other Visit Diagnoses:Pharyngitis, unspecified etiology [J02.9] Cough [R05] Cold intolerance [R68.89] 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 manifestations (HCC) [E11.49] Order(s):RAPID STREP TEST B/O [[id number]] Order #: [id number] IRON + TIBC [SQIRON] Order #: [id number] FUTURE TSH BLD [SQTSH] Order #: [id number] FUTURE GROUP A STREPTOCOCCUS BY PCR [SQGASPCR] Order #: [id number] Promethazine-DM (PHENERGAN-DM) 6.25-15 mg/5 mL syrupTake 5 mL by mouth four times daily as needed.Disp: 120 mLRfl: 0 Prescriptions as of 09/28/2017 Sig: ALBUTEROL SULFATE HFA 90 MCG/* Inhale 2 Puffs as instructed * PAROXETINE 40 MG TABLET Take 1 tablet by mouth once d* PRAVASTATIN 20 MG TABLET Take 1 tablet by mouth daily * METFORMIN 850 MG TABLET take 1 tablet by mouth twice * CALCIUM CARBONATE 600 MG CALC* Take 1 tablet by mouth once d* PROMETHAZINE-DM 6.25 MG-15 MG* Take 5 mL by mouth four times* COMPOUNDED PRESCRIPTION Powerstep Original Full Lengt* PROPRANOLOL 10 MG TABLET Take 1 tablet by mouth twice * Patient not taking: Reported on 09/10/2017 CEPHALEXIN 500 MG CAPSULE Take 1 capsule by mouth three* CYCLOBENZAPRINE 10 MG TABLET take 1 tablet by mouth once d* CHOLECALCIFEROL (VITAMIN D3) * Take 1 capsule by mouth once * IBUPROFEN 600 MG TABLET take 1 tablet by mouth every * BLOOD SUGAR DIAGNOSTIC STRIPS Test twice daily COMPOUNDED PRESCRIPTION powerstep orthotics Dx: post* CYCLOBENZAPRINE 10 MG TABLET Take 10 mg by mouth once clovis* POLYETHYLENE GLYCOL 3350 17 G* Take 17 g by mouth once daily* BUDESONIDE 180 MCG/ACTUATION * Inhale 2 Puffs as instructed * Patient not taking: Reported on 09/10/2017 CHOLECALCIFEROL (VITAMIN D3) * Take 1 capsule by mouth once * BLOOD SUGAR DIAGNOSTIC STRIPS Use for blood sugar testing o* LANCETS Test blood sugar once daily. Problem List As Of Date 09/28/2017 Noted Resolved Well controlled type 2 diabetes mellitus with n*INVALID FOR* More... Hyperlipidemia with target LDL less than 70 [E7*INVALID FOR* Chronic low back pain [M54.5, G89.29] INVALID FOR* Depression with anxiety [F41.8] INVALID FOR* More... Fibromyalgia [M79.7] INVALID FOR* Osteoporosis [M81.0] INVALID FOR* More... Tobacco abuse [Z72.0] INVALID FOR* Pain in limb [M79.609] INVALID FOR* Atrophic vaginitis [N95.2] INVALID FOR* Hallux valgus, acquired [M20.10] INVALID FOR* Suture reaction [T81.89XA] INVALID FOR*04/08/2015 Dyspareunia [[id number]] INVALID FOR* Vitamin D deficiency [E55.9] INVALID FOR* Degenerative disc disease [[id number]] INVALID FOR* Scoliosis [M41.9] INVALID FOR* Lumbar radiculopathy [M54.16] INVALID FOR* Lumbar canal stenosis [M48.061] INVALID FOR* Essential tremor [G25.0] INVALID FOR* Pyogenic inflammation of bone (HCC) [M86.9] INVALID FOR* Other instructions from your clinician: Treatment for Viral Upper Respiratory Tract Infections Your body will kill off the virus by itself. Additionally, you can prime your body's immune system. This may help you get better more quickly. 1. Drink lots of fluids - at least one gallon of non-caffeinated liquids per day 2. Make sure you are eating well 3. Get plenty of rest - at least 8 hours of sleep per night for adults and more for children We do not have any medications that kill off these viruses. Antibiotics are used to treat bacterial infections; however, they are not active against viral infections. There are some things that might help you feel better, though. 1. Vaporizers, humidifiers, hot showers, and hot fluids help open respiratory and sinus passages 2. Sudafed is a safe and effective decongestant 3. [place] Nasal [place] may offer relief of nasal and head congestion 4. Judson's Vapor Rub placed on a hot towel and draped over the head may relieve congestion 5. Tylenol and Advil help control fevers and headaches 6. Salt water gargles help relieve sore throats 7. Chloraceptic spray or throat lozenges may also help relieve sore throat symptoms 8. Robitussin DM will help loosen up secretions and also provide relief from a cough Occasionally, viral infections turn into something more serious. You should see your doctor or return to the Urgent Care if: 1. You have fevers for longer than five days 2. You have fevers above 102 degrees 3. You are still sick after 10 days 4. You have shortness of breath or wheezing 5. After several days you are getting worse rather than better [facility] PATIENT INFO I Feel So Sick, Don?t I Need Antibiotics? Did you know. . . There?s only a 1 in 4000 chance that an antibiotic will help most acute upper respiratory infections. But there?s a 1 in 4 chance of diarrhea and a 1 in 50 chance of a skin reaction and a 1 in 1000 chance it?ll cause an ER visit due to some side effect. Antibiotics can also lead to more resistant infections that are harder to treat. Bottom line: There?s little to no benefit to taking antibiotics for most acute upper respiratory tract infections...and the downsides are real. Viruses cannot be treated by antibiotics. Viruses cause most upper respiratory infections, which include head colds, sore throats, bronchitis, and sinus infections. The common cold and influenza do not respond to antibiotics. Less than 10 percent of acute bronchitis cases are caused by bacteria. Most cases of acute ear infections also resolve without antibiotics. Sore throats (pharyngitis) are usually caused by viruses as well. Antibiotics are not recommended unless you have strep throat and only about 15 to 30 percent of pharyngitis cases in children and up to 10 percent of cases in adults are due to strep throat. Almost all cases of acute bacterial sinusitis resolve without antibiotics. There are a few situations in which antibiotics are needed, however. See your health care provider if you have a decreased immune system due to cancer, or if you are taking steroids, have HIV, or have had an organ transplant, or if your symptoms worsen or last longer than 7 to 10 days. Most often you should use the lonl-pcd-rysaazd symptomatic treatment/s that your health care provider has recommended. These would include analgesic products such as acetaminophen (Tylenol?), decongestants, antihistamines, salt water gargles, drinking warm tea, and other methods to help treat the symptoms. Also remember that your best defense against getting the flu is to get a flu shot, but this does not, unfortunately, protect you against the many other viruses out in the environment that cause the other kinds of illnesses other than the actual influenza. Prescriptions ordered this encounter Disp Refills Start End PROMETHAZINE-DM 6.25 MG-15 MG/5 ML S* 120 * 0 09/28/2017 09/28/2017 Route: ORAL Sig: Take 5 mL by mouth four times daily as needed. PROMETHAZINE-DM 6.25 MG-15 MG/5 ML S* 120 * 0 09/28/2017 Route: ORAL Sig: Take 5 mL by mouth four times daily as needed. Medications Discontinued During This Encounter Promethazine-DM (PHENERGAN-DM) 6.25-* 120 * 0 09/28/2017 09/28/2017 Route: ORAL Sig: Take 5 mL by mouth four times daily as needed. Disc: Reason for discontinue is not on file. Disposition: Return if symptoms worsen or fail to improve. Follow-up and Disposition History Recorded Encounter Status:Closed by TOO AMIN MD on 09/28/17 PROGRESS Observed: 09/25/2017 Status: COMPLETED Source: [place] 9:33 AM [facility] REPOSITORY O ID: [id number] Author: Jackeline Vargas Service: (none) Author Type: Physician Type: Progress Notes Filed: 09/25/2017 12:28 PM Note Text: Follow up podiatric office visit for: Chief Complaint: This 61 year old who presents for follow up:left foot pain. Patient has continued pain that is on/off to left ankle. She has pain that she states is 6-7/10. She states the pain to her ankle prior to hareware removal was worse. 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 She does not use her afo. She just wears regular loafer type shoes. She states when there is pain, she just takes muscle relaxant and the next day, she is fine. Patient continues to smokes and smokes about 1 ppd. Patient has not started physical therapy. She feels pain in ankle is her new baseline. Patient complains of painful toenails of b/l feet. PAIN EVALUATION No data found. Hemoglobin A1C Date Value Ref Range Status 09/05/2017 5.8 (H) 4.3 - 5.6 % Final PCP: Ashli Silva PA-C PAST MEDICAL HISTORY Diagnosis Date - Adjustment disorder with depressed mood - Kidney stones - Mixed hyperlipidemia Hyperlipidemia - Other and unspecified hyperlipidemia in the past - Type II or unspecified type diabetes mellitus without mention of complication, not stated as uncontrolled Current Outpatient Prescriptions: albuterol HFA (VENTOLIN HFA) 90 mcg/actuation inhaler Inhale 2 Puffs as instructed every 4 hours as needed for Wheezing/Shortness of Breath. COMPOUNDED PRESCRIPTION Powerstep Original Full Length` PARoxetine (PAXIL) 40 mg tablet Take 1 tablet by mouth once daily. propranolol (INDERAL) 10 mg tablet Take 1 tablet by mouth twice daily. (Patient not taking: Reported on 09/10/2017 ) cephALEXin (KEFLEX) 500 mg capsule Take 1 capsule by mouth three times daily. cyclobenzaprine (FLEXERIL) 10 mg tablet take 1 tablet by mouth once daily Cholecalciferol, Vitamin D3, 5,000 unit cap Take 1 capsule by mouth once daily. ibuprofen (MOTRIN) 600 mg tablet take 1 tablet by mouth every 8 hours if needed for pain pravastatin (PRAVACHOL) 20 mg tablet Take 1 tablet by mouth daily at bedtime. metFORMIN (GLUCOPHAGE) 850 mg tablet take 1 tablet by mouth twice a day with meals blood sugar diagnostic (BLOOD GLUCOSE TEST) test strip Test twice daily COMPOUNDED PRESCRIPTION powerstep orthoticsDx: posterior tibial tendon dysfunction flatfoot cyclobenzaprine (FLEXERIL) 10 mg tablet Take 10 mg by mouth once daily. polyethylene glycol 3350 (MIRALAX) 17 gram/dose powder Take 17 g by mouth once daily. For constipation from narcotics. budesonide (PULMICORT FLEXHALER) 180 mcg/actuation aepb Inhale 2 Puffs as instructed twice daily. (Patient not taking: Reported on 09/10/2017 ) Cholecalciferol, Vitamin D3, 2,000 unit cap Take 1 capsule by mouth once daily. calcium carbonate (CALTRATE) 600 mg (1,500 mg) tab Take 1 tablet by mouth once daily. blood sugar diagnostic (ACCU-CHEK JIMMIE) test strip Use for blood sugar testing once daily and as needed, 250.00 Lancets (ACCU-CHEK MULTICLIX LANCET) [facility] [place] blood sugar once daily. No current facility-administered medications for this visit. ALLERGIES Allergen Reactions - Ampicillin GI Upset Intolerance, can take cephalosporins - Avelox [Moxifloxaci* Mental Status Change - Bactrim [Sulfametho* Vomiting - Doxycycline GI Upset - Steroids [Corticost* Other: See Comments Anxiety, jittery and head feels funny PAST SURGICAL HISTORY Procedure Laterality Date - APPENDECTOMY - ESWL kidney stones - PAST SURGICAL HISTORY OF tubal preg - PAST SURGICAL HISTORY OF remote left leg/ ankle with plates and screws - PAST SURGICAL HISTORY OF 11/29/2011 Bunion Removed - REMOVAL GALLBLADDER - REMOVAL OF OVARY(S) bilaterally with hysterectomy - TOTAL ABD HYSTERECTOMY+BLAD REPR REVIEW OF SYSTEMS: CONSTITUTIONAL: No fevers, chills, nightsweats, unintended weight loss HEENT: Denies frequent or severe heaches, nasal congestion/sinus symptoms, problematic allergy problems. EYES: No diplopia or blurry vision. CARDIOVASCULAR: No chest pain, dyspnea, palpitations, orthopnea, PND, ankle edema. PULM: No dyspnea, unexplained cough. GI: No dysphagia/odynophagia, problematic reflux, constipation, diarrhea, changes in stool habits, hematochezia, melena. : No new urinary complaints, including dysuria, gross hematuria or pyuria. NEURO: No new balance problems, peripheral weakness/paresthesias or numbness of concern. MUSC-SKEL: + left ankle pain PSY: No concerns regarding depression, anxiety or panic. INTEGUMENTARY: No new skin changes (rash, new or changing mole, new growth) Physical Exam: Constitutional: Pt is a well developed 61 year old female who is alert, oriented, cooperative and in no apparent distress. OBJECTIVE: NVSI unchanged from previous visit. Dermatological: Nails 1-5 b/l are thick, discolored, painful. Webspaces clean and dry 1-4 b/l. Skin appears well hydrated and supple. good color, texture, turgor. No open lesions present. No callosities present. Musculoskeletal/Orthopaedic: Patient has pain to palpation of left lateral ankle. Moderate flat foot deformity is present b/l rom of b/l ankle is full without pain or crepitus ASSESSMENT: (M25.372) Ankle instability, left (primary encounter diagnosis) (L0.0) Onychocryptosis (M79.675) Pain in toe of left foot (M79.674) Pain in toe of right foot (M86.8X6) Other osteomyelitis of left fibula (HCC) PLAN: 1. History and physical examination completed today. 2. Patient was examined and informed of current findings. Discussed ongoing ankle pain. She does have flat foot and we discussed prior to removal of hardware that her pain in ankle would likely remain following removal. I would pursue the inserts and/or afo as she is not using them currently. If pain persists, she can try therapy. 3. Discussed her toenails. Toenails 1-5 b/l were debrided in length and thickness 4. Will order cbc,esr,crp and if normal, no plan for any follow-up as her osteomyelitis likely cured. She does have cement spacer that we have discussed removal. It does not appear to be causing her any problems. Given her diabetes, smoking and lack of issues with hardware, I would be inclinded ot keep in at this point. I feel removing could certainly cause more issues, none more significant than her ability to heal. Jackeline Vargas DPM CNOV Observed: 09/25/2017 Status: COMPLETED Source: [place] 9:10 AM [facility] REPOSITORY Office Visit (PODIWS) YAMILEX MERCADO ([id number]) 1955 F Date Time Provider Department 09/25/17 9:10 AM JACKELINE VARGAS During your visit today, we recorded the following information about you: Jackeline Vargas DPM 09/25/2017 12:28 PM Signed Follow up podiatric office visit for: Chief Complaint: This 61 year old who presents for follow up:left foot pain. Patient has continued pain that is on/off to left ankle. She has pain that she states is 6-7/10. She states the pain to her ankle prior to hareware removal was worse. 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 She does not use her afo. She just wears regular loafer type shoes. She states when there is pain, she just takes muscle relaxant and the next day, she is fine. Patient continues to smokes and smokes about 1 ppd. Patient has not started physical therapy. She feels pain in ankle is her new baseline. Patient complains of painful toenails of b/l feet. PAIN EVALUATION No data found. Hemoglobin A1C Date Value Ref Range Status 09/05/2017 5.8 (H) 4.3 - 5.6 % Final PCP: Ashli Silva PA-C PAST MEDICAL HISTORY Diagnosis Date - Adjustment disorder with depressed mood - Kidney stones - Mixed hyperlipidemia Hyperlipidemia - Other and unspecified hyperlipidemia in the past - Type II or unspecified type diabetes mellitus without mention of complication, not stated as uncontrolled Current Outpatient Prescriptions: albuterol HFA (VENTOLIN HFA) 90 mcg/actuation inhaler Inhale 2 Puffs as instructed every 4 hours as needed for Wheezing/Shortness of Breath. COMPOUNDED PRESCRIPTION Powerstep Original Full Length` PARoxetine (PAXIL) 40 mg tablet Take 1 tablet by mouth once daily. propranolol (INDERAL) 10 mg tablet Take 1 tablet by mouth twice daily. (Patient not taking: Reported on 09/10/2017 ) cephALEXin (KEFLEX) 500 mg capsule Take 1 capsule by mouth three times daily. cyclobenzaprine (FLEXERIL) 10 mg tablet take 1 tablet by mouth once daily Cholecalciferol, Vitamin D3, 5,000 unit cap Take 1 capsule by mouth once daily. ibuprofen (MOTRIN) 600 mg tablet take 1 tablet by mouth every 8 hours if needed for pain pravastatin (PRAVACHOL) 20 mg tablet Take 1 tablet by mouth daily at bedtime. metFORMIN (GLUCOPHAGE) 850 mg tablet take 1 tablet by mouth twice a day with meals blood sugar diagnostic (BLOOD GLUCOSE TEST) test strip Test twice daily COMPOUNDED PRESCRIPTION powerstep orthoticsDx: posterior tibial tendon dysfunction flatfoot cyclobenzaprine (FLEXERIL) 10 mg tablet Take 10 mg by mouth once daily. polyethylene glycol 3350 (MIRALAX) 17 gram/dose powder Take 17 g by mouth once daily. For constipation from narcotics. budesonide (PULMICORT FLEXHALER) 180 mcg/actuation aepb Inhale 2 Puffs as instructed twice daily. (Patient not taking: Reported on 09/10/2017 ) Cholecalciferol, Vitamin D3, 2,000 unit cap Take 1 capsule by mouth once daily. calcium carbonate (CALTRATE) 600 mg (1,500 mg) tab Take 1 tablet by mouth once daily. blood sugar diagnostic (ACCU-CHEK JIMMIE) test strip Use for blood sugar testing once daily and as needed, 250.00 Lancets (ACCU-CHEK MULTICLIX LANCET) [facility] [place] blood sugar once daily. No current facility-administered medications for this visit. ALLERGIES Allergen Reactions - Ampicillin GI Upset Intolerance, can take cephalosporins - Avelox [Moxifloxaci* Mental Status Change - Bactrim [Sulfametho* Vomiting - Doxycycline GI Upset - Steroids [Corticost* Other: See Comments Anxiety, jittery and head feels funny PAST SURGICAL HISTORY Procedure Laterality Date - APPENDECTOMY - ESWL kidney stones - PAST SURGICAL HISTORY OF tubal preg - PAST SURGICAL HISTORY OF remote left leg/ ankle with plates and screws - PAST SURGICAL HISTORY OF 11/29/2011 Bunion Removed - REMOVAL GALLBLADDER - REMOVAL OF OVARY(S) bilaterally with hysterectomy - TOTAL ABD HYSTERECTOMY+BLAD REPR REVIEW OF SYSTEMS: CONSTITUTIONAL: No fevers, chills, nightsweats, unintended weight loss HEENT: Denies frequent or severe heaches, nasal congestion/sinus symptoms, problematic allergy problems. EYES: No diplopia or blurry vision. CARDIOVASCULAR: No chest pain, dyspnea, palpitations, orthopnea, PND, ankle edema. PULM: No dyspnea, unexplained cough. GI: No dysphagia/odynophagia, problematic reflux, constipation, diarrhea, changes in stool habits, hematochezia, melena. : No new urinary complaints, including dysuria, gross hematuria or pyuria. NEURO: No new balance problems, peripheral weakness/paresthesias or numbness of concern. MUSC-SKEL: + left ankle pain PSY: No concerns regarding depression, anxiety or panic. INTEGUMENTARY: No new skin changes (rash, new or changing mole, new growth) Physical Exam: Constitutional: Pt is a well developed 61 year old female who is alert, oriented, cooperative and in no apparent distress. OBJECTIVE: NVSI unchanged from previous visit. Dermatological: Nails 1-5 b/l are thick, discolored, painful. Webspaces clean and dry 1-4 b/l. Skin appears well hydrated and supple. good color, texture, turgor. No open lesions present. No callosities present. Musculoskeletal/Orthopaedic: Patient has pain to palpation of left lateral ankle. Moderate flat foot deformity is present b/l rom of b/l ankle is full without pain or crepitus ASSESSMENT: (M25.372) Ankle instability, left (primary encounter diagnosis) (L0.0) Onychocryptosis (M79.675) Pain in toe of left foot (M79.674) Pain in toe of right foot (M86.8X6) Other osteomyelitis of left fibula (HCC) PLAN: 1. History and physical examination completed today. 2. Patient was examined and informed of current findings. Discussed ongoing ankle pain. She does have flat foot and we discussed prior to removal of hardware that her pain in ankle would likely remain following removal. I would pursue the inserts and/or afo as she is not using them currently. If pain persists, she can try therapy. 3. Discussed her toenails. Toenails 1-5 b/l were debrided in length and thickness 4. Will order cbc,esr,crp and if normal, no plan for any follow-up as her osteomyelitis likely cured. She does have cement spacer that we have discussed removal. It does not appear to be causing her any problems. Given her diabetes, smoking and lack of issues with hardware, I would be inclinded ot keep in at this point. I feel removing could certainly cause more issues, none more significant than her ability to heal. Jackeline Vargas DPM Referring Provider: JACKELINE VARGAS [[id number]] Allergies As of Date: 09/25/2017 Noted Allergy Reaction AMPICILLIN 12/17/2006 8 - GI Upset Comments: Intolerance, can take cephalosporins AVELOX (MOXIFLOXACIN HCL) 09/21/2010 1 - Mental Status Change BACTRIM (SULFAMETHOXAZOLE-TRIMETH*03/05/2017 11 - Vomiting DOXYCYCLINE 12/17/2006 8 - GI Upset STEROIDS (CORTICOSTEROIDS (GLUCOC*12/12/2013 14 - Other: See Comments Comments: Anxiety, jittery and head feels funny Date Reviewed: 09/25/2017 Reviewed by: Maegan Schwartz LPN - Fully Assessed Reason for Visit: Established Patient [175] Cmt: one month follow up Primary Visit Diagnosis:Ankle instability, left [M25.372] Other Visit Diagnoses:Onychocryptosis [L60.0] Pain in toe of left foot [M79.675] Pain in toe of right foot [M79.674] Other osteomyelitis of left fibula (HCC) [M86.8X6] Order(s):CBC + DIFF [SQCBCDIF] Order #: [id number] FUTURE SED RATE WESTERGREN [SQWSR] Order #: [id number] FUTURE C-REACTIVE PROTEIN (CRP) [SQCRP] Order #: [id number] FUTURE Prescriptions as of 09/25/2017 Sig: ALBUTEROL SULFATE HFA 90 MCG/* Inhale 2 Puffs as instructed * COMPOUNDED PRESCRIPTION Powerstep Original Full Lengt* PAROXETINE 40 MG TABLET Take 1 tablet by mouth once d* PROPRANOLOL 10 MG TABLET Take 1 tablet by mouth twice * Patient not taking: Reported on 09/10/2017 CEPHALEXIN 500 MG CAPSULE Take 1 capsule by mouth three* CYCLOBENZAPRINE 10 MG TABLET take 1 tablet by mouth once d* CHOLECALCIFEROL (VITAMIN D3) * Take 1 capsule by mouth once * IBUPROFEN 600 MG TABLET take 1 tablet by mouth every * PRAVASTATIN 20 MG TABLET Take 1 tablet by mouth daily * METFORMIN 850 MG TABLET take 1 tablet by mouth twice * BLOOD SUGAR DIAGNOSTIC STRIPS Test twice daily COMPOUNDED PRESCRIPTION powerstep orthotics Dx: post* CYCLOBENZAPRINE 10 MG TABLET Take 10 mg by mouth once clovis* POLYETHYLENE GLYCOL 3350 17 G* Take 17 g by mouth once daily* BUDESONIDE 180 MCG/ACTUATION * Inhale 2 Puffs as instructed * Patient not taking: Reported on 09/10/2017 CHOLECALCIFEROL (VITAMIN D3) * Take 1 capsule by mouth once * CALCIUM CARBONATE 600 MG CALC* Take 1 tablet by mouth once d* BLOOD SUGAR DIAGNOSTIC STRIPS Use for blood sugar testing o* LANCETS Test blood sugar once daily. Problem List As Of Date 09/25/2017 Noted Resolved Well controlled type 2 diabetes mellitus with n*INVALID FOR* More... Hyperlipidemia with target LDL less than 70 [E7*INVALID FOR* Chronic low back pain [M54.5, G89.29] INVALID FOR* Depression with anxiety [F41.8] INVALID FOR* More... Fibromyalgia [M79.7] INVALID FOR* Osteoporosis [M81.0] INVALID FOR* More... Tobacco abuse [Z72.0] INVALID FOR* Pain in limb [M79.609] INVALID FOR* Atrophic vaginitis [N95.2] INVALID FOR* Hallux valgus, acquired [M20.10] INVALID FOR* Suture reaction [T81.89XA] INVALID FOR*04/08/2015 Dyspareunia [[id number]] INVALID FOR* Vitamin D deficiency [E55.9] INVALID FOR* Degenerative disc disease [[id number]] INVALID FOR* Scoliosis [M41.9] INVALID FOR* Lumbar radiculopathy [M54.16] INVALID FOR* Lumbar canal stenosis [M48.061] INVALID FOR* Essential tremor [G25.0] INVALID FOR* Pyogenic inflammation of bone (HCC) [M86.9] INVALID FOR* Encounter Status:Closed by JACKELINE VARGAS DPM on 09/25/17 PROGRESS Observed: 09/10/2017 Status: COMPLETED Source: [place] 9:[address] [facility] HNO ID: [id number] Author: Ashli Atkins (David-C) Ricardo Service: (none) Author Type: Physician Caretaker Grounds Type: Progress Notes Filed: 09/10/2017 12:00 PM Note Text: 61 year old female with c/o 1. In more pain of Xanax. Hurts everywhere. Having increased palpitations. Noted chilling in 85 degree pool. Pain in ankles/ feet, calves, thighs, hips, fingers. 2. Has tremor with intentional movement forever, since childhood. She is adopted but has found that women in her family have similar. 3-4 cups of tea. Has not taken atenolol: worried about effects on BP. 3. Taking medication as directed consistently? No. Has been intermittently usin g glimeperide due to low blood sugars. Takes about every few days due to hypoglycemia. Medical Issues / Complications: hyperlipidemia Checking blood sugars at home? Yes Watching diet? Yes Physical Activity: Sedentary Hypoglycemic spells? No Any visual disturbance? No Chest pain? No New numbness, tingling or loss of sensation? No Any recent foot problems, sores or rashes? No Any recent or sudden weight loss? No Any recent illness? No Renal protective agent? No ASA daily? No Statin therapy? Yes Triglyceride therapy? No HBA1C: Hemoglobin A1C (%) Date Value 09/05/2017 5.8 09/06/2016 5.7 ) CMP: Glucose 141 11/16/2016 BUN 19 11/16/2016 Creatinine 1.22 11/16/2016 Sodium 140 11/16/2016 Potassium 3.9 11/16/2016 Chloride 103 11/16/2016 CO2 24 11/16/2016 Protein, Total 7.2 09/06/2016 Albumin 3.9 09/06/2016 Calcium 9.3 11/16/2016 Alkaline Phosphatase 50 09/06/2016 Bilirubin, Total 0.3 09/06/2016 AST 20 09/06/2016 ALT 14 09/06/2016 Last 2 Encounter Wt Readings: Date: Wt: 09/10/2017 73.5 kg (162 lb) 08/13/2017 72.1 kg (159 lb) 4. Hyperlipidemia: Taking medication consistently Yes Observing low cholesterol high fiber diet Yes Muscle aches: Yes but not r/t to med Stomach complaints/ diarrhea No Component Latest Ref Rng AND Units 12/09/2014 07/16/2015 01/05/2016 Triglyceride 30 - 149 mg/dL 103 101 138 Cholesterol, Total 100 - 199 mg/dL 152 177 171 HDL Cholesterol >55 mg/dL 58 61 57 VLDL Cholesterol 6 - 40 mg/dL 21 20 28 LDL Cholesterol 60 - 129 mg/dL 73 96 86 Fasting Time hrs FASTING FASTING FASTING TC:HDL Ratio 1.00 - 5.00 2.62 2.90 3.00 LDL:HDL Ratio 0.50 - 3.55 1.26 1.57 1.51 Non HDL Cholesterol 90 - 159 mg/dL 94 116 114 HISTORIES FAMILY HISTORY Problem Relation Age of Onset - Adopted: Yes - Diabetes Father - Diabetes Maternal Grandmother - Heart Father - Hypertension Father - Lipids Father - None Sister - Diabetes Daughter - Cancer Sister thyroid. PAST MEDICAL HISTORY Diagnosis Date - Adjustment disorder with depressed mood - Kidney stones - Mixed hyperlipidemia Hyperlipidemia - Other and unspecified hyperlipidemia in the past - Type II or unspecified type diabetes mellitus without mention of complication, not stated as uncontrolled PAST SURGICAL HISTORY Procedure Laterality Date - APPENDECTOMY - ESWL kidney stones - PAST SURGICAL HISTORY OF tubal preg - PAST SURGICAL HISTORY OF remote left leg/ ankle with plates and screws - PAST SURGICAL HISTORY OF 11/29/2011 Bunion Removed - REMOVAL GALLBLADDER - REMOVAL OF OVARY(S) bilaterally with hysterectomy - TOTAL ABD HYSTERECTOMY+BLAD REPR Social History Marital status: Spouse name: Years of education: 13 Number of children: 1 Occupational History 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 Has taken care of grandson. 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 Disp: 30 tablet Rfl: 1 Cholecalciferol, Vitamin D3, 5,000 unit cap Take 1 capsule by mouth once daily. Disp: 90 capsule Rfl: 3 ibuprofen (MOTRIN) 600 mg tablet take 1 tablet by mouth every 8 hours if needed for pain Disp: 90 tablet Rfl: 1 pravastatin (PRAVACHOL) 20 mg tablet Take 1 tablet by mouth daily at bedtime. Disp: 90 tablet Rfl: 3 metFORMIN (GLUCOPHAGE) 850 mg tablet take 1 tablet by mouth twice a day with meals Disp: 60 tablet Rfl: 11 blood sugar diagnostic (BLOOD GLUCOSE TEST) test strip Test twice daily Disp: 50 Strip Rfl: 6 cyclobenzaprine (FLEXERIL) 10 mg tablet Take 10 mg by mouth once daily. Disp: Rfl: calcium carbonate (CALTRATE) 600 mg (1,500 mg) tab Take 1 tablet by mouth once daily. Disp: 90 tablet Rfl: 3 blood sugar diagnostic (ACCU-CHEK JIMMIE) test strip Use for blood sugar testing once daily and as needed, 250.00 Disp: 50 Each Rfl: 12 Lancets (ACCU-CHEK MULTICLIX LANCET) [facility] [place] blood sugar once daily. Disp: 30 Each Rfl: 6 COMPOUNDED PRESCRIPTION Powerstep Original Full Length` Disp: 1 Each Rfl: 0 propranolol (INDERAL) 10 mg tablet Take 1 tablet by mouth twice daily. (Patient not taking: Reported on 09/10/2017 ) Disp: 60 tablet Rfl: 2 cephALEXin (KEFLEX) 500 mg capsule Take 1 capsule by mouth three times daily. Disp: 30 capsule Rfl: 0 cyclobenzaprine (FLEXERIL) 10 mg tablet take 1 tablet by mouth once daily Disp: 30 tablet Rfl: 1 ALPRAZolam (XANAX) 0.5 mg tablet Try to slowly wean off medication over next 8 weeks. 1/2-1 tab twice a day as needed Disp: 60 tablet Rfl: 1 glimepiride (AMARYL) 1 mg tablet Take 0.5 tablets by mouth twice daily with meals. Disp: 30 tablet Rfl: 2 COMPOUNDED PRESCRIPTION powerstep orthoticsDx: posterior tibial tendon dysfunction flatfoot Disp: 1 Device Rfl: 0 polyethylene glycol 3350 (MIRALAX) 17 gram/dose powder Take 17 g by mouth once daily. For constipation from narcotics. Disp: 1 Bottle Rfl: 2 budesonide (PULMICORT FLEXHALER) 180 mcg/actuation aepb Inhale 2 Puffs as instructed twice daily. (Patient not taking: Reported on 09/10/2017 ) Disp: 1 Inhaler Rfl: 2 Cholecalciferol, Vitamin D3, 2,000 unit cap Take 1 capsule by mouth once daily. Disp: 100 capsule Rfl: 3 No current facility-administered medications for this visit. DTAP,TDAP,TD(1 - Tdap) due on 1972 ZOSTER VACCINE (SHINGRIX)(1 of 2) due on 11/19/2003 DILATED RETINAL EXAM due on 05/30/2013 MAMMOGRAM due on 07/15/2015 FECAL OCCULT BLOOD due on 03/02/2016 URINE ALBUMIN CREATININE RATIO due on 01/04/2017 LDL due on 01/04/2017 EXAM: BP 118/62 Pulse 64 Resp 12 Wt 73.5 kg (162 lb) BMI 28.25 kg/m? Pleasant adult woman in no acute distress. Alert and oriented all spheres. Normal affect and cognition. Speech normal. No deficits to learning or comprehension. Skin warm, dry, pink to lips and nailbeds. Normal turgor. Respirations regular and unlabored. HEENT WNL. TM's clear. Nose and oropharynx free from injection or lesion. No cervical lymph nodes. Thyroid non-tender, no masses Chest CTA. HRRR without murmur or gallop. Extrem: no clubbing, cyanosis, edema. Extremities are warm and pink with prompt capillary refill. ASSESSMENT/PLAN: 1. 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 manifestations (HCC) - ICD9: 250.60, ICD10: E11.49 (primary diagnosis) Controlled. - Continue current medications - LIPID PANEL BASIC - ALBUMIN/CREAT RATIO RND UR 2. Depression with anxiety - ICD9: 300.4, ICD10: F41.8 Some increase in anxiety r/t stopping Xanax. Trial propranolol as directed for tremor and feedback in 2 weeks. Consider gabapentin to cover both anxiety and tremor. 3. Essential tremor - ICD9: 333.1, ICD10: G25.0 Start propranolol: long discussion on medication and side effects. 4. Screening for breast cancer - ICD9: V76.10, ICD10: Z12.31 - Completed pelvic and breast exam with [facility] LO[facility] SPECIALIST - Encouraged monthly BSE - Follow up for annual exam in one year. - ZAKI SCREENING 5. Screening for colon cancer - ICD9: V76.51, ICD10: Z12.11 - FECAL OCCULT BLOOD TEST F/u with mychart in 2 weeks, OV in 6 months Ashli Silva PA-C CNOV Observed: 09/10/2017 Status: COMPLETED Source: [place] 9:40 AM [facility] Office Visit (FAMPWS) YAMILEX MERCADO ([id number]) 1955 F Date Time Provider Department 09/10/17 9:40 AM Ashli SILVA) FAMPWS During your visit today, we recorded the following information about you: Pulse Respiration Blood pressure Weight 64/minute 12/minute 118/62 73.5 kg Ashli Silva PA-C 09/10/2017 12:00 PM Signed 61 year old female with c/o 1. In more pain of Xanax. Hurts everywhere. Having increased palpitations. Noted chilling in 85 degree pool. Pain in ankles/ feet, calves, thighs, hips, fingers. 2. Has tremor with intentional movement forever, since childhood. She is adopted but has found that women in her family have similar. 3-4 cups of tea. Has not taken atenolol: worried about effects on BP. 3. Taking medication as directed consistently? No. Has been intermittently usin g glimeperide due to low blood sugars. Takes about every few days due to hypoglycemia. Medical Issues / Complications: hyperlipidemia Checking blood sugars at home? Yes Watching diet? Yes Physical Activity: Sedentary Hypoglycemic spells? No Any visual disturbance? No Chest pain? No New numbness, tingling or loss of sensation? No Any recent foot problems, sores or rashes? No Any recent or sudden weight loss? No Any recent illness? No Renal protective agent? No ASA daily? No Statin therapy? Yes Triglyceride therapy? No HBA1C: Hemoglobin A1C (%) Date Value 09/05/2017 5.8 09/06/2016 5.7 ) CMP: Glucose 141 11/16/2016 BUN 19 11/16/2016 Creatinine 1.22 11/16/2016 Sodium 140 11/16/2016 Potassium 3.9 11/16/2016 Chloride 103 11/16/2016 CO2 24 11/16/2016 Protein, Total 7.2 09/06/2016 Albumin 3.9 09/06/2016 Calcium 9.3 11/16/2016 Alkaline Phosphatase 50 09/06/2016 Bilirubin, Total 0.3 09/06/2016 AST 20 09/06/2016 ALT 14 09/06/2016 Last 2 Encounter Wt Readings: Date: Wt: 09/10/2017 73.5 kg (162 lb) 08/13/2017 72.1 kg (159 lb) 4. Hyperlipidemia: Taking medication consistently Yes Observing low cholesterol high fiber diet Yes Muscle aches: Yes but not r/t to med Stomach complaints/ diarrhea No Component Latest Ref Rng AND Units 12/09/2014 07/16/2015 01/05/2016 Triglyceride 30 - 149 mg/dL 103 101 138 Cholesterol, Total 100 - 199 mg/dL 152 177 171 HDL Cholesterol >55 mg/dL 58 61 57 VLDL Cholesterol 6 - 40 mg/dL 21 20 28 LDL Cholesterol 60 - 129 mg/dL 73 96 86 Fasting Time hrs FASTING FASTING FASTING TC:HDL Ratio 1.00 - 5.00 2.62 2.90 3.00 LDL:HDL Ratio 0.50 - 3.55 1.26 1.57 1.51 Non HDL Cholesterol 90 - 159 mg/dL 94 116 114 HISTORIES FAMILY HISTORY Problem Relation Age of Onset - Adopted: Yes - Diabetes Father - Diabetes Maternal Grandmother - Heart Father - Hypertension Father - Lipids Father - None Sister - Diabetes Daughter - Cancer Sister thyroid. PAST MEDICAL HISTORY Diagnosis Date - Adjustment disorder with depressed mood - Kidney stones - Mixed hyperlipidemia Hyperlipidemia - Other and unspecified hyperlipidemia in the past - Type II or unspecified type diabetes mellitus without mention of complication, not stated as uncontrolled PAST SURGICAL HISTORY Procedure Laterality Date - APPENDECTOMY - ESWL kidney stones - PAST SURGICAL HISTORY OF tubal preg - PAST SURGICAL HISTORY OF remote left leg/ ankle with plates and screws - PAST SURGICAL HISTORY OF 11/29/2011 Bunion Removed - REMOVAL GALLBLADDER - REMOVAL OF OVARY(S) bilaterally with hysterectomy - TOTAL ABD HYSTERECTOMY+BLAD REPR Social History Marital status: Spouse name: Years of education: 13 Number of children: 1 Occupational History 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 Has taken care of grandson. 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 Disp: 30 tablet Rfl: 1 Cholecalciferol, Vitamin D3, 5,000 unit cap Take 1 capsule by mouth once daily. Disp: 90 capsule Rfl: 3 ibuprofen (MOTRIN) 600 mg tablet take 1 tablet by mouth every 8 hours if needed for pain Disp: 90 tablet Rfl: 1 pravastatin (PRAVACHOL) 20 mg tablet Take 1 tablet by mouth daily at bedtime. Disp: 90 tablet Rfl: 3 metFORMIN (GLUCOPHAGE) 850 mg tablet take 1 tablet by mouth twice a day with meals Disp: 60 tablet Rfl: 11 blood sugar diagnostic (BLOOD GLUCOSE TEST) test strip Test twice daily Disp: 50 Strip Rfl: 6 cyclobenzaprine (FLEXERIL) 10 mg tablet Take 10 mg by mouth once daily. Disp: Rfl: calcium carbonate (CALTRATE) 600 mg (1,500 mg) tab Take 1 tablet by mouth once daily. Disp: 90 tablet Rfl: 3 blood sugar diagnostic (ACCU-CHEK JIMMIE) test strip Use for blood sugar testing once daily and as needed, 250.00 Disp: 50 Each Rfl: 12 Lancets (ACCU-CHEK MULTICLIX LANCET) [facility] [place] Test blood sugar once daily. Disp: 30 Each Rfl: 6 COMPOUNDED PRESCRIPTION Powerstep Original Full Length` Disp: 1 Each Rfl: 0 propranolol (INDERAL) 10 mg tablet Take 1 tablet by mouth twice daily. (Patient not taking: Reported on 09/10/2017 ) Disp: 60 tablet Rfl: 2 cephALEXin (KEFLEX) 500 mg capsule Take 1 capsule by mouth three times daily. Disp: 30 capsule Rfl: 0 cyclobenzaprine (FLEXERIL) 10 mg tablet take 1 tablet by mouth once daily Disp: 30 tablet Rfl: 1 ALPRAZolam (XANAX) 0.5 mg tablet Try to slowly wean off medication over next 8 weeks. 1/2-1 tab twice a day as needed Disp: 60 tablet Rfl: 1 glimepiride (AMARYL) 1 mg tablet Take 0.5 tablets by mouth twice daily with meals. Disp: 30 tablet Rfl: 2 COMPOUNDED PRESCRIPTION powerstep orthoticsDx: posterior tibial tendon dysfunction flatfoot Disp: 1 Device Rfl: 0 polyethylene glycol 3350 (MIRALAX) 17 gram/dose powder Take 17 g by mouth once daily. For constipation from narcotics. Disp: 1 Bottle Rfl: 2 budesonide (PULMICORT FLEXHALER) 180 mcg/actuation aepb Inhale 2 Puffs as instructed twice daily. (Patient not taking: Reported on 09/10/2017 ) Disp: 1 Inhaler Rfl: 2 Cholecalciferol, Vitamin D3, 2,000 unit cap Take 1 capsule by mouth once daily. Disp: 100 capsule Rfl: 3 No current facility-administered medications for this visit. DTAP,TDAP,TD(1 - Tdap) due on 1972 ZOSTER VACCINE (SHINGRIX)(1 of 2) due on 11/19/2003 DILATED RETINAL EXAM due on 05/30/2013 MAMMOGRAM due on 07/15/2015 FECAL OCCULT BLOOD due on 03/02/2016 URINE ALBUMIN CREATININE RATIO due on 01/04/2017 LDL due on 01/04/2017 EXAM: BP 118/62 Pulse 64 Resp 12 Wt 73.5 kg (162 lb) BMI 28.25 kg/m? Pleasant adult woman in no acute distress. Alert and oriented all spheres. Normal affect and cognition. Speech normal. No deficits to learning or comprehension. Skin warm, dry, pink to lips and nailbeds. Normal turgor. Respirations regular and unlabored. HEENT WNL. TM's clear. Nose and oropharynx free from injection or lesion. No cervical lymph nodes. Thyroid non-tender, no masses Chest CTA. HRRR without murmur or gallop. Extrem: no clubbing, cyanosis, edema. Extremities are warm and pink with prompt capillary refill. ASSESSMENT/PLAN: 1. 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 manifestations (HCC) - ICD9: 250.60, ICD10: E11.49 (primary diagnosis) Controlled. - Continue current medications - LIPID PANEL BASIC - ALBUMIN/CREAT RATIO RND UR 2. Depression with anxiety - ICD9: 300.4, ICD10: F41.8 Some increase in anxiety r/t stopping Xanax. Trial propranolol as directed for tremor and feedback in 2 weeks. Consider gabapentin to cover both anxiety and tremor. 3. Essential tremor - ICD9: 333.1, ICD10: G25.0 Start propranolol: long discussion on medication and side effects. 4. Screening for breast cancer - ICD9: V76.10, ICD10: Z12.31 - Completed pelvic and breast exam with [facility] LO[employer] SPECIALIST - Encouraged monthly BSE - Follow up for annual exam in one year. - ZAKI SCREENING 5. Screening for colon cancer - ICD9: V76.51, ICD10: Z12.11 - FECAL OCCULT BLOOD TEST F/u with mychart in 2 weeks, OV in 6 months M Carlitos Silva PA-C Referring Provider: SELF [[id number]] Allergies As of Date: 09/10/2017 Noted Allergy Reaction AMPICILLIN 12/17/2006 8 - GI Upset Comments: Intolerance, can take cephalosporins AVELOX (MOXIFLOXACIN HCL) 09/21/2010 1 - Mental Status Change BACTRIM (SULFAMETHOXAZOLE-TRIMETH*03/05/2017 11 - Vomiting DOXYCYCLINE 12/17/2006 8 - GI Upset STEROIDS (CORTICOSTEROIDS (GLUCOC*12/12/2013 14 - Other: See Comments Comments: Anxiety, jittery and head feels funny Date Reviewed: 09/10/2017 Reviewed by: Caitlyn Mathews Ma - Fully Assessed Reason for Visit: Anxiety [9] Cmt: follow up Tremor [758] Cmt: follow up, never started Propanolol. Primary Visit Diagnosis: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 manifestations (HCC) [E11.49] Other Visit Diagnoses:Depression with anxiety [F41.8] Essential tremor [G25.0] Screening for breast cancer [Z12.31] Screening for colon cancer [Z12.11] Order(s):albuterol HFA (VENTOLIN HFA) 90 mcg/actuation inhalerInhale 2 Puffs as instructed every 4 hours as needed for Wheezing/Shortness of Breath.Disp: 1 InhalerRfl: 5 LIPID PANEL BASIC [SQLIPB] Order #: [id number] FUTURE ALBUMIN/CREAT RATIO RND UR [SQUACR] Order #: [id number] FUTURE ZAKI SCREENING [7181212] Order #: [id number] FUTURE FECAL OCCULT BLOOD TEST [SQIFOBT] Order #: [id number] FUTURE Prescriptions as of 09/10/2017 Sig: PAROXETINE 40 MG TABLET Take 1 tablet by mouth once d* CHOLECALCIFEROL (VITAMIN D3) * Take 1 capsule by mouth once * IBUPROFEN 600 MG TABLET take 1 tablet by mouth every * PRAVASTATIN 20 MG TABLET Take 1 tablet by mouth daily * METFORMIN 850 MG TABLET take 1 tablet by mouth twice * BLOOD SUGAR DIAGNOSTIC STRIPS Test twice daily CYCLOBENZAPRINE 10 MG TABLET Take 10 mg by mouth once clovis* CALCIUM CARBONATE 600 MG CALC* Take 1 tablet by mouth once d* BLOOD SUGAR DIAGNOSTIC STRIPS Use for blood sugar testing o* LANCETS Test blood sugar once daily. ALBUTEROL SULFATE HFA 90 MCG/* Inhale 2 Puffs as instructed * COMPOUNDED PRESCRIPTION Powerstep Original Full Lengt* PROPRANOLOL 10 MG TABLET Take 1 tablet by mouth twice * Patient not taking: Reported on 09/10/2017 CEPHALEXIN 500 MG CAPSULE Take 1 capsule by mouth three* CYCLOBENZAPRINE 10 MG TABLET take 1 tablet by mouth once d* COMPOUNDED PRESCRIPTION powerstep orthotics Dx: post* POLYETHYLENE GLYCOL 3350 17 G* Take 17 g by mouth once daily* BUDESONIDE 180 MCG/ACTUATION * Inhale 2 Puffs as instructed * Patient not taking: Reported on 09/10/2017 CHOLECALCIFEROL (VITAMIN D3) * Take 1 capsule by mouth once * Problem List As Of Date 09/10/2017 Noted Resolved Well controlled type 2 diabetes mellitus with n*INVALID FOR* More... Hyperlipidemia with target LDL less than 70 [E7*INVALID FOR* Chronic low back pain [M54.5, G89.29] INVALID FOR* Depression with anxiety [F41.8] INVALID FOR* More... Fibromyalgia [M79.7] INVALID FOR* Osteoporosis [M81.0] INVALID FOR* More... Tobacco abuse [Z72.0] INVALID FOR* Pain in limb [M79.609] INVALID FOR* Atrophic vaginitis [N95.2] INVALID FOR* Hallux valgus, acquired [M20.10] INVALID FOR* Suture reaction [T81.89XA] INVALID FOR*04/08/2015 Dyspareunia [NLM3605] INVALID FOR* Vitamin D deficiency [E55.9] INVALID FOR* Degenerative disc disease [FHL6416] INVALID FOR* Scoliosis [M41.9] INVALID FOR* Lumbar radiculopathy [M54.16] INVALID FOR* Lumbar canal stenosis [M48.061] INVALID FOR* Essential tremor [G25.0] INVALID FOR* Prescriptions ordered this encounter Disp Refills Start End ALBUTEROL SULFATE HFA 90 MCG/ACTUATI* 1 In* 5 09/10/2017 Route: INHALATION Sig: Inhale 2 Puffs as instructed every 4 hours as needed for Wheezing/Shortness of Breath. Medications Discontinued During This Encounter albuterol HFA (PROAIR HFA) 90 mcg/ac* 1 In* 2 04/02/2017 09/10/2017 Route: INHALATION Sig: Inhale 2 Puffs as instructed every 4 hours as needed. Disc: Changing Therapy/Dosage Form ALPRAZolam (XANAX) 0.5 mg tablet 60 t* 1 05/23/2017 09/10/2017 Class: Print RX Sig: Try to slowly wean off medication over next 8 weeks. 1/2-1 tab twice a day as needed Disc: Reason for discontinue is not on file. glimepiride (AMARYL) 1 mg tablet 30 t* 2 12/11/2016 09/10/2017 Route: ORAL Sig: Take 0.5 tablets by mouth twice daily with meals. Disc: Reason for discontinue is not on file. Disposition: Return in about 6 months (around 03/12/2018). Follow-up and Disposition History Recorded Encounter Status:Closed by Ashli SILVA PA-C on 09/10/17 HEMOGLOBIN A1C Collected: 09/05/2017 Status: F Source: [place] 1:56 PM [facility] TYPE CODE TESTS RESULT OUT OF REFERENCE UNITS RANGE LAB HGBA1C 4.3-5.6 % High Hemoglobin A1c 5.8 LAB HBA0 mg/dL Est. Average Glucose 120 Result Comment: eAG: (Estimated average glucose) is a calculated value from HgbA1c and is construction representative of the average blood glucose level in the last 2-3 month period. Performed By: #### HBA1C #### [facility] [address] [place], [place] [address] CNPTOUTREACH Observed: 08/28/2017 Status: COMPLETED Source: [place] 12:00 AM [facility] Patient Outreach ([facility]) YAMILEX MERCADO ([id number]) 1955 F Date Time Provider Department 08/28/17 [facility] your visit today, we recorded the following information about you: Allergies As of Date: 08/28/2017 Noted Allergy Reaction AMPICILLIN 12/17/2006 8 - GI Upset Comments: Intolerance, can take cephalosporins AVELOX (MOXIFLOXACIN HCL) 09/21/2010 1 - Mental Status Change BACTRIM (SULFAMETHOXAZOLE-TRIMETH*03/05/2017 11 - Vomiting DOXYCYCLINE 12/17/2006 8 - GI Upset STEROIDS (CORTICOSTEROIDS (GLUCOC*12/12/2013 14 - Other: See Comments Comments: Anxiety, jittery and head feels funny Date Reviewed: 08/22/2017 Reviewed by: Aby Hilario Ma - Fully Assessed Visit Diagnosis:Medication management [Z79.899] Order(s):HGB A1C [CUPSD9X] Order #: [id number] FUTURE Prescriptions as of 08/28/2017 Sig: COMPOUNDED PRESCRIPTION Powerstep Original Full Lengt* PROPRANOLOL 10 MG TABLET Take 1 tablet by mouth twice * Patient not taking: Reported on 09/10/2017 CEPHALEXIN 500 MG CAPSULE Take 1 capsule by mouth three* X PAROXETINE 40 MG TABLET Take 1 tablet by mouth once d* CYCLOBENZAPRINE 10 MG TABLET take 1 tablet by mouth once d* CHOLECALCIFEROL (VITAMIN D3) * Take 1 capsule by mouth once * X IBUPROFEN 600 MG TABLET take 1 tablet by mouth every * X ALPRAZOLAM 0.5 MG TABLET Try to slowly wean off medica* X ALBUTEROL SULFATE HFA 90 MCG/* Inhale 2 Puffs as instructed * X PRAVASTATIN 20 MG TABLET Take 1 tablet by mouth daily * X METFORMIN 850 MG TABLET take 1 tablet by mouth twice * X GLIMEPIRIDE 1 MG TABLET Take 0.5 tablets by mouth twi* BLOOD SUGAR DIAGNOSTIC STRIPS Test twice daily COMPOUNDED PRESCRIPTION powerstep orthotics Dx: post* CYCLOBENZAPRINE 10 MG TABLET Take 10 mg by mouth once clovis* POLYETHYLENE GLYCOL 3350 17 G* Take 17 g by mouth once daily* Patient not taking: Reported on 11/23/2017 BUDESONIDE 180 MCG/ACTUATION * Inhale 2 Puffs as instructed * Patient not taking: Reported on 09/10/2017 CHOLECALCIFEROL (VITAMIN D3) * Take 1 capsule by mouth once * CALCIUM CARBONATE 600 MG CALC* Take 1 tablet by mouth once d* Patient not taking: Reported on 11/23/2017 BLOOD SUGAR DIAGNOSTIC STRIPS Use for blood sugar testing o* LANCETS Test blood sugar once daily. Problem List As Of Date 08/28/2017 Noted Resolved Well controlled type 2 diabetes mellitus with n*INVALID FOR* More... Hyperlipidemia with target LDL less than 70 [E7*INVALID FOR* Chronic low back pain [M54.5, G89.29] INVALID FOR* Depression with anxiety [F41.8] INVALID FOR* More... Fibromyalgia [M79.7] INVALID FOR* Osteoporosis [M81.0] INVALID FOR* More... Tobacco abuse [Z72.0] INVALID FOR* Pain in limb [M79.609] INVALID FOR* Atrophic vaginitis [N95.2] INVALID FOR* Hallux valgus, acquired [M20.10] INVALID FOR* Suture reaction [T81.89XA] INVALID FOR*04/08/2015 Dyspareunia [[id number]] INVALID FOR* Vitamin D deficiency [E55.9] INVALID FOR* Degenerative disc disease [VBH3250] INVALID FOR* Scoliosis [M41.9] INVALID FOR* Lumbar radiculopathy [M54.16] INVALID FOR* Lumbar canal stenosis [M48.061] INVALID FOR* Essential tremor [G25.0] INVALID FOR* Encounter Status:Closed by EPIC, PRODUSER on 01/04/18 SED RATE WESTERGREN Collected: 08/22/2017 Status: F Source: [place] 9:43 AM [facility] TYPE CODE TESTS RESULT OUT OF REFERENCE UNITS RANGE LAB WSR 0-20 mm/hr Sed Rate Westergren 8 Performed By: #### WSR, CBCDIF, CRP #### [facility] [place] [address] CBC AND DIFFERENTIAL Collected: 08/22/2017 Status: F Source: [place] 9:43 AM [facility] TYPE CODE TESTS RESULT OUT OF REFERENCE UNITS RANGE LAB WBC 3.70-11.00 k/uL WBC 8.68 LAB RBC 3.90-5.20 m/uL RBC 4.19 LAB HGB 11.5-15.5 g/dL Hemoglobin 12.4 LAB HCT 36.0-46.0 % Hematocrit 39.6 LAB MCV 80.0-100.0 fL MCV 94.5 LAB MCH 26.0-34.0 pG MCH 29.6 LAB MCHC 30.5-36.0 g/dL MCHC 31.3 LAB RDWCV 11.5-15.0 % RDW-CV 14.3 LAB PLTCT 150-400 k/uL Platelet Count 211 LAB MPV 9.0-12.7 fL MPV 11.8 LAB ANEUT % Neut% 54.8 LAB AANEUT 1.45-7.50 k/uL Abs Neut 4.76 LAB ALYMP % Lymph% 34.6 LAB AALYMP 1.00-4.00 k/uL Abs Lymph 3.00 LAB AMONO % [place]% 7.9 LAB AAMONO <0.87 k/uL Abs [place] 0.69 LAB AEOS % Eosin% 2.2 LAB AAEOS <0.46 k/uL Abs Eosin 0.19 LAB ABASO % Baso% 0.5 LAB AABASO <0.11 k/uL Abs Baso 0.04 LAB AUNRBC 0 /100 WBC NRBCs 0.0 LAB ABNRBC <0.01 k/uL Absolute nRBC <0.01 LAB DTYP DTYPE Auto Diff Performed By: #### WSR, CBCDIF, CRP #### [facility] [address] [id number] C-REACTIVE PROTEIN Collected: 08/22/2017 Status: F Source: [place] 9:43 AM [facility] TYPE CODE TESTS RESULT OUT OF REFERENCE UNITS RANGE LAB CRP <0.9 mg/dL C-Reactive 0.2 Protein Performed By: #### WSR, CBCDIF, CRP #### [id number] [place], [place] [address] PROGRESS Observed: 08/22/2017 Status: COMPLETED Source: [place] 9:37 AM [facility] REPOSITORY HNO ID: [id number] Author: Miriam () Carol Ann Hoskins Service: (none) Author Type: Insurance Claims Clerk Type: Progress Notes Filed: 08/22/2017 9:37 AM Note Text: Radiology Service Progress Note PATIENT NAME: Yamilex Mercado DATE OF SERVICE: August 22, 2017 TIME: 9:37 AM PATIENT IDENTITY VERIFICATION COMPLETED USING TWO (2) METHODS: Patient confirmed name verbally and Date of . PATIENT GENDER DATA: Female. status: : No status: NO. PATIENT RELEVANT IMPLANT DATA REVIEWED: Not Applicable RADIOLOGY DEPARTMENT: General X-ray: Exam(s) Completed: Lower Extremity X-Ray(s): Ankle, Bilateral and Wt. Bearing: PERIPHERAL IV DATA: Not applicable SIGNED BY: RT Shaina August 22, 2017 9:37 AM XR ANKLE 3V AP/LAT/OBL Observed: 08/22/2017 Status: F Source: [facility] 9:36 AM [facility] REPOSITORY * * *Final Report* * * DATE OF EXAM: Aug 22 2017 9:36AM WRX [id number] - XR ANKLE 3V AP/LAT/OBL YANN / PROCEDURE REASON: multiple diagnoses * * * * Physician Interpretation * * * * HISTORY: 61-YEAR-OLD FEMALE WITH Other instability, left ankle Other instability, right ankle . follow up to bilateral ankle fractures TECHNIQUE: XR ANKLE 3V AP/LAT/OBL YANN Laterality: BILATERAL Number of different views (projections): 3-each COMPARISON: 06/05/2017 RESULT: Left ankle The ankle mortise is mildly asymmetrically narrowed laterally.. There is an antibiotic impregnated methacrylate present in the defect in the lateral fibula millimeters demineralization is areas of sclerosis related to prior mid osteomyelitis. There is no new periosteal reaction. No evidence of acute osteomyelitis at this time. Small enthesophyte on the calcaneus at the insertion of the Achilles tendon. Right ankle: Ankle mortise is maintained. Small enthesophyte at the medial malleolus. No acute fracture. No periosteal reaction. Small enthesophyte on the calcaneus at the insertion of Achilles tendon. IMPRESSION: NO CHANGE IN LEFT ANKLE COMPARED TO PREVIOUS EXAMINATION. NO ACUTE BONY ABNORMALITY IN THE RIGHT ANKLE. Air Shovel Operator: PSCSabra Transcribe Date/Time: Aug 22 2017 4:09P Dictated by : AIMEE CLARK MD This examination was interpreted and the report reviewed and electronically signed by: AIMEE CLARK MD on Aug 22 2017 4:12PM EST [id number] PROGRESS Observed: 08/22/2017 Status: COMPLETED Source: [place] 8:47 AM [facility] REPOSITORY HNO ID: [id number] Author: Jackeline Vargas Service: (none) Author Type: Physician Type: Progress Notes Filed: 08/22/2017 9:51 PM Note Text: ? Jackeline Vargas DPM Department of Podiatry [address] [facility] [address] Dept: [phone] Dept 08/22/2017 Follow Up Podiatric Office Visit: HPI: Yamilex Mercado is a 61 year old female. Patient presents for follow up for ankle pain, bilateral. L ankle - hx of hardware removal, 12/04/16 and placement of bone cement in 12/2016. Patient complains of continued constant pain that is sharp to medial ankle, achy to lateral ankle and mushy feeling with prolonged standing. Pain is tolerable unless patient active. Patient reports that if she knows she is going to need to be active, she makes sure to wear compression stockings, which help a little. Pain increased with activity but feels better with relaxation and ibuprofen. R ankle - constant pain starting in June 2017 while in [place]. Patient denies injury. Constant sore and achy with walking, relieved with elevation, ibuprofen, and relaxation. Patient did not check blood glucose today. Patient continued smoker. Physical Exam: Constitutional: Pt is a well developed 61 year old female who is alert, oriented and cooperative Eyes: Following during examination. No redness or drainage. Respiratory: RR normal and nonlabored. Even breathing. No evidence of distress or shortness of breath. Psychology: Patient is engaged during conversation. Normal affect and mood. Does not appear depressed or anxious during encounter. Vascular: Dorsalis pedis and posterior tibial pulses palpable as b/l Capillary Fill time < 5 seconds to digits 1-5 b/l Skin temperature warm to warm proximal to distal b/l Hair growth present to digits Neurological: intact light touch/epicritic sensation Dermatological: Skin appears well hydrated and supple. good color, texture, turgor. Callosities absent. Open lesions absent. Musculoskeletal/Orthopaedic: Patient has pain to palpation of sinus tarsi of b/l ankle. No pain to palpation of left lateral fibula. rom of left ankle is full without pain or crepitus. Foot type is pronated structurally AJ ROM is full with knee extended and flexed 1st MPJ is full when loaded and no pain or crepitus are noted with ROM. MTJ, STJ are full and free of pain and crepitus. +5/5 muscle strength dorsiflexion, plantarflexion, inversion, eversion b/l ASSESSMENT: (M25.372) Ankle instability, left (primary encounter diagnosis) (M86.8X6) Other osteomyelitis of left fibula (HCC) Comment: Patient examined and informed of findings. Reiterated again with patient that when we discussed removing hardware that it would not necessarily resolve pain due to foot collapse. Patient has custom brace that she cannot fit into shoes, has an ASO that she can wear. Discussed weak ankles. Options include lace up ASO, try physical therapy to increase strength, or continue to monitor. Patient wishes to try physical therapy. Will order bilateral ankle XR and repeat blood work. Discussed advanced imaging, patient wants to continue to monitor without MRI. Plan: 1. Repeat XR 2. Blood work today 3. Physical therapy to increase strength 4. Powersteps (M25.371) Ankle instability, right Plan: 1. XR 2. Blood work today 3. Physical Therapy to increase strength 4. Powersteps RTC 1 month The documentation for this note was completed by Aby Hilario Ma acting as scribe for Jackeline Vargas DPM. August 22, 2017 8:47 AM. I agree with the Chief Complaint, ROS, and Past Histories independently gathered by the clinical business support liaison and the remaining scribed note accurately describes my personal service to the patient. Jackeline Vargas DPM CNOV Observed: 08/22/2017 Status: COMPLETED Source: [place] 8:40 AM [facility] RE[facility]IT[facility] Office Visit (PODIWS) YAMILEX MERCADO ([id number]) 1955 F Date Time Provider Department 08/22/17 8:40 AM JACKELINE VARGAS During your visit today, we recorded the following information about you: Jackeline Vargas DPM 08/22/2017 9:51 PM Signed ? Jackeline Vargas DPM Department of Podiatry [address] [facility] [address] Dept: [phone] Dept 08/22/2017 Follow Up Podiatric Office Visit: HPI: Yamilex Patton Erica is a 61 year old female. Patient presents for follow up for ankle pain, bilateral. L ankle - hx of hardware removal, 12/04/16 and placement of bone cement in 12/2016. Patient complains of continued constant pain that is sharp to medial ankle, achy to lateral ankle and mushy feeling with prolonged standing. Pain is tolerable unless patient active. Patient reports that if she knows she is going to need to be active, she makes sure to wear compression stockings, which help a little. Pain increased with activity but feels better with relaxation and ibuprofen. R ankle - constant pain starting in June 2017 while in [place]. Patient denies injury. Constant sore and achy with walking, relieved with elevation, ibuprofen, and relaxation. Patient did not check blood glucose today. Patient continued smoker. Physical Exam: Constitutional: Pt is a well developed 61 year old female who is alert, oriented and cooperative Eyes: Following during examination. No redness or drainage. Respiratory: RR normal and nonlabored. Even breathing. No evidence of distress or shortness of breath. Psychology: Patient is engaged during conversation. Normal affect and mood. Does not appear depressed or anxious during encounter. Vascular: Dorsalis pedis and posterior tibial pulses palpable as b/l Capillary Fill time < 5 seconds to digits 1-5 b/l Skin temperature warm to warm proximal to distal b/l Hair growth present to digits Neurological: intact light touch/epicritic sensation Dermatological: Skin appears well hydrated and supple. good color, texture, turgor. Callosities absent. Open lesions absent. Musculoskeletal/Orthopaedic: Patient has pain to palpation of sinus tarsi of b/l ankle. No pain to palpation of left lateral fibula. rom of left ankle is full without pain or crepitus. Foot type is pronated structurally AJ ROM is full with knee extended and flexed 1st MPJ is full when loaded and no pain or crepitus are noted with ROM. MTJ, STJ are full and free of pain and crepitus. +5/5 muscle strength dorsiflexion, plantarflexion, inversion, eversion b/l ASSESSMENT: (M25.372) Ankle instability, left (primary encounter diagnosis) (M86.8X6) Other osteomyelitis of left fibula (HCC) Comment: Patient examined and informed of findings. Reiterated again with patient that when we discussed removing hardware that it would not necessarily resolve pain due to foot collapse. Patient has custom brace that she cannot fit into shoes, has an ASO that she can wear. Discussed weak ankles. Options include lace up ASO, try physical therapy to increase strength, or continue to monitor. Patient wishes to try physical therapy. Will order bilateral ankle XR and repeat blood work. Discussed advanced imaging, patient wants to continue to monitor without MRI. Plan: 1. Repeat XR 2. Blood work today 3. Physical therapy to increase strength 4. Powersteps (M25.371) Ankle instability, right Plan: 1. XR 2. Blood work today 3. Physical Therapy to increase strength 4. Powersteps RTC 1 month The documentation for this note was completed by Aby Hilario Ma acting as scribe for Jackeline Vargas DPM. August 22, 2017 8:47 AM. I agree with the Chief Complaint, ROS, and Past Histories independently gathered by the clinical business support liaison and the remaining scribed note accurately describes my personal service to the patient. Jackeline Vargas DPM Referring Provider: JACKELINE VARGAS [[id number]] Allergies As of Date: 08/22/2017 Noted Allergy Reaction AMPICILLIN 12/17/2006 8 - GI Upset Comments: Intolerance, can take cephalosporins AVELOX (MOXIFLOXACIN HCL) 09/21/2010 1 - Mental Status Change BACTRIM (SULFAMETHOXAZOLE-TRIMETH*03/05/2017 11 - Vomiting DOXYCYCLINE 12/17/2006 8 - GI Upset STEROIDS (CORTICOSTEROIDS (GLUCOC*12/12/2013 14 - Other: See Comments Comments: Anxiety, jittery and head feels funny Date Reviewed: 08/22/2017 Reviewed by: Aby Hilario Ma - Fully Assessed Reason for Visit: Follow Up [171] Primary Visit Diagnosis:Ankle instability, left [M25.372] Other Visit Diagnoses:Ankle instability, right [M25.371] Other osteomyelitis of left fibula (HCC) [M86.8X6] Order(s):CONSULT TO PHYSICAL THERAPY [9032] Order #: [id number]: 1 SED RATE WESTERGREN [SQWSR] Order #: [id number] FUTURE C-REACTIVE PROTEIN (CRP) [SQCRP] Order #: [id number] FUTURE CBC + DIFF [SQCBCDIF] Order #: [id number] FUTURE COMPOUNDED PRESCRIPTIONPowerstep Original Full Length`Disp: 1 EachRfl: 0 XR ANKLE GENERAL 3V AP/LAT/OBL BILAT [[id number]] Order #: [id number] FUTURE Prescriptions as of 08/22/2017 Sig: COMPOUNDED PRESCRIPTION Powerstep Original Full Lengt* PAROXETINE 40 MG TABLET Take 1 tablet by mouth once d* PROPRANOLOL 10 MG TABLET Take 1 tablet by mouth twice * CEPHALEXIN 500 MG CAPSULE Take 1 capsule by mouth three* CYCLOBENZAPRINE 10 MG TABLET take 1 tablet by mouth once d* CHOLECALCIFEROL (VITAMIN D3) * Take 1 capsule by mouth once * IBUPROFEN 600 MG TABLET take 1 tablet by mouth every * ALPRAZOLAM 0.5 MG TABLET Try to slowly wean off medica* ALBUTEROL SULFATE HFA 90 MCG/* Inhale 2 Puffs as instructed * PRAVASTATIN 20 MG TABLET Take 1 tablet by mouth daily * METFORMIN 850 MG TABLET take 1 tablet by mouth twice * GLIMEPIRIDE 1 MG TABLET Take 0.5 tablets by mouth twi* BLOOD SUGAR DIAGNOSTIC STRIPS Test twice daily COMPOUNDED PRESCRIPTION powerstep orthotics Dx: post* CYCLOBENZAPRINE 10 MG TABLET Take 10 mg by mouth once clovis* POLYETHYLENE GLYCOL 3350 17 G* Take 17 g by mouth once daily* BUDESONIDE 180 MCG/ACTUATION * Inhale 2 Puffs as instructed * CHOLECALCIFEROL (VITAMIN D3) * Take 1 capsule by mouth once * CALCIUM CARBONATE 600 MG CALC* Take 1 tablet by mouth once d* BLOOD SUGAR DIAGNOSTIC STRIPS Use for blood sugar testing o* LANCETS Test blood sugar once daily. Problem List As Of Date 08/22/2017 Noted Resolved Well controlled type 2 diabetes mellitus with n*INVALID FOR* More... Hyperlipidemia with target LDL less than 70 [E7*INVALID FOR* Chronic low back pain [M54.5, G89.29] INVALID FOR* Depression with anxiety [F41.8] INVALID FOR* More... Fibromyalgia [M79.7] INVALID FOR* Osteoporosis [M81.0] INVALID FOR* More... Tobacco abuse [Z72.0] INVALID FOR* Pain in limb [M79.609] INVALID FOR* Atrophic vaginitis [N95.2] INVALID FOR* Hallux valgus, acquired [M20.10] INVALID FOR* Suture reaction [T81.89XA] INVALID FOR*04/08/2015 Dyspareunia [KPK2256] INVALID FOR* Vitamin D deficiency [E55.9] INVALID FOR* Degenerative disc disease [OBS6887] INVALID FOR* Scoliosis [M41.9] INVALID FOR* Lumbar radiculopathy [M54.16] INVALID FOR* Lumbar canal stenosis [M48.061] INVALID FOR* Essential tremor [G25.0] INVALID FOR* Prescriptions ordered this encounter Disp Refills Start End COMPOUNDED PRESCRIPTION 1 Ea* 0 08/22/2017 Class: Print RX Sig: Powerstep Original Full Length` Disposition: Return in about 1 month (around 09/22/2017) for p/t follow up. Follow-up and Disposition History Recorded Encounter Status:Closed by JACKELINE VARGAS DPM on 08/22/17 PROGRESS Observed: 08/13/2017 Status: COMPLETED Source: [place] 1:[address] [facility] REPOSITORY HNO ID: [id number] Author: Ursula (Negar) Jj Service: (none) Author Type: Nurse Practitioner Type: Progress Notes Filed: 08/13/2017 2:12 PM Note Text: This is a 61 year old female who presents today with: Patient presents with: Headache Head Congestion Neck Pain HISTORY OF PRESENT ILLNESS: Yamilex Mercado is a 61 year old female. Patient presents with: Headache Head Congestion Neck Pain Pt presents today with complaint of headache. Thinks that it may related to sinuses. Refers that she has a lot of phlegm. Refers that her left ear is plugged up some. Refers that she does feel [id number]-ibxsa-waex. + cough. Refers that she will cough so much that she will almost pass out. + smoker. No fever/chills. Treated with clindamycin a couple of weeks ago when [place]. Refers that she also has familiar tremors. Refers that she is adopted. Refers that she has a long-standing hx of tremors, which is better when she takes the xanax, however, she is being weaned off this. She met mother, who also has tremors. Refers that they've been getting worse since she is weaning the xanax. Refers that if she is in a hurry to do anything, will notice they are worse. Refers that she drops the hook a lot with crocheting. Refers that her anxiety is worse as well, which could be exacerbating the tremors. She is fearful, as she reports her mothers tremors are very significant. Reports having these tremors since she was young. Refers that she never seen a neurologist. PAST MEDICAL HISTORY: PAST MEDICAL HISTORY Diagnosis Date - Adjustment disorder with depressed mood - Kidney stones - Mixed hyperlipidemia Hyperlipidemia - Other and unspecified hyperlipidemia in the past - Type II or unspecified type diabetes mellitus without mention of complication, not stated as uncontrolled PAST SURGICAL HISTORY Procedure Laterality Date - APPENDECTOMY - ESWL kidney stones - PAST SURGICAL HISTORY OF tubal preg - PAST SURGICAL HISTORY OF remote left leg/ ankle with plates and screws - PAST SURGICAL HISTORY OF 11/29/2011 Bunion Removed - REMOVAL GALLBLADDER - REMOVAL OF OVARY(S) bilaterally with hysterectomy - TOTAL ABD HYSTERECTOMY+BLAD REPR ALLERGIES Ampicillin; Avelox [Moxifloxacin Hcl]; Bactrim [Sulfamethoxazole-Trimethoprim]; Doxycycline; Steroids [Corticosteroids (Glucocorticoids)] MEDICATIONS Current Outpatient Prescriptions: PARoxetine (PAXIL) 30 mg tablet take 1 tablet by mouth once daily cyclobenzaprine (FLEXERIL) 10 mg tablet take 1 tablet by mouth once daily Cholecalciferol, Vitamin D3, 5,000 unit cap Take 1 capsule by mouth once daily. ibuprofen (MOTRIN) 600 mg tablet take 1 tablet by mouth every 8 hours if needed for pain ALPRAZolam (XANAX) 0.5 mg tablet Try to slowly wean off medication over next 8 weeks. 1/2-1 tab twice a day as needed albuterol HFA (PROAIR HFA) 90 mcg/actuation inhaler Inhale 2 Puffs as instructed every 4 hours as needed. HYDROcodone-acetaminophen (NORCO) 5-325 mg per tablet Take 1 tablet by mouth every 8 hours as needed. pravastatin (PRAVACHOL) 20 mg tablet Take 1 tablet by mouth daily at bedtime. metFORMIN (GLUCOPHAGE) 850 mg tablet take 1 tablet by mouth twice a day with meals glimepiride (AMARYL) 1 mg tablet Take 0.5 tablets by mouth twice daily with meals. blood sugar diagnostic (BLOOD GLUCOSE TEST) test strip Test twice daily COMPOUNDED PRESCRIPTION [facility] orthoticsDx: posterior tibial tendon dysfunction flatfoot cyclobenzaprine (FLEXERIL) 10 mg tablet Take 10 mg by mouth once daily. polyethylene glycol 3350 (MIRALAX) 17 gram/dose powder Take 17 g by mouth once daily. For constipation from narcotics. budesonide (PULMICORT FLEXHALER) 180 mcg/actuation aepb Inhale 2 Puffs as instructed twice daily. Cholecalciferol, Vitamin D3, 2,000 unit cap Take 1 capsule by mouth once daily. calcium carbonate (CALTRATE) 600 mg (1,500 mg) tab Take 1 tablet by mouth once daily. blood sugar diagnostic (ACCU-CHEK JIMMIE) test strip Use for blood sugar testing once daily and as needed, 250.00 Lancets (ACCU-CHEK MULTICLIX LANCET) [facility] [place] blood sugar once daily. No current facility-administered medications for this visit. FAMILY HISTORY Problem Relation Age of Onset - Adopted: Yes - Diabetes Father - Diabetes Maternal Grandmother - Heart Father - Hypertension Father - Lipids Father - None Sister - Diabetes Daughter - Cancer Sister thyroid. 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 Has taken care of grandson. EXAM: BP 118/66 Pulse 80 Temp 36.9 ?C (98.4 ?F) (Tympanic) Resp 16 Wt 72.1 kg (159 lb) BMI 27.72 kg/m? PHYSICAL EXAM: General Appearance: Well appearing, alert, in no acute distress, well-hydrated, well nourished.. Skin: Skin color, texture, turgor normal, no suspicious rashes or lesions. Head: Normocephalic, no masses, lesions, tenderness or abnormalities. Eyes: Anicteric sclera. Pupils are equally round and reactive to light. Extraocular movements are intact. . Ears: External ears normal, canals clear, Normal TMs bilaterally. Oropharynx: Lips, mucosa, and tongue normal, teeth and gums normal, oropharynx normal. Neck: Supple, no adenopathy; thyroid symmetric, normal size, no bruits. Lungs: exp wheeze in the right upper field. Heart: RRR without murmur, gallop, or rubs. No ectopy. Abdomen: Abdomen soft, non-tender. Bowel sounds normal. No masses, organomegaly. Neurologic: Gait normal. Sensation grossly intact. + tremors of bilateral hands. ASSESSMENT/PLAN: 1. Essential tremor - ICD9: 333.1, ICD10: G25.0 (primary diagnosis) Will go ahead and start a low dose propranolol. She has about 10 xanax left -- taking 1/2 pill daily. Encouraged to start doing every other day. Propranolol will likely need to be increased, but will ensure patient tolerates. - PROPRANOLOL 10 MG TABLET - CONSULT TO NEUROLOGY 2. Depression with anxiety - ICD9: 300.4, ICD10: F41.8 Increased anxiety re: coming off the xanax. - PAROXETINE 40 MG TABLET 3. Acute non-recurrent maxillary sinusitis - ICD9: 461.0, ICD10: J01.00 - Supportive care with plenty of fluids, rest, and analgesia prn. - CEPHALEXIN 500 MG CAPSULE Discussed treatment plan and patient voices understanding. Patient's questions answered appropriately. Medications and potential side effects were discussed and patient voices understanding. Return to the office as scheduled or as needed for worsening/no improvement. Ursula Gardner APRN.NEGAR CNOV Observed: 08/13/2017 Status: COMPLETED Source: [place] 1:00 PM [facility] RE[facility] Office Visit (FAMPWS) YAMILEX MERCADO ([id number]) 1955 F Date Time Provider Department 08/13/17 1:00 PM URSULA GARDNER (NEGAR) [facility] During your visit today, we recorded the following information about you: Temperature Pulse Respiration Blood pressure 98.4 degrees 80/minute 16/minute 118/66 Weight 72.1 kg Caitlyn Clinebianca Fuentes 08/13/2017 1:03 PM Signed SINUS: Patient has c/o sinus pressure and drainage. She was in [place] with family when it started. She called on 07/30/17, asking for an antibiotic to be called in. She had the symptoms for about a month at that point. She was given Clindamycin 300 mg TID for 7 days. She had some relief for a little bit but the headaches, drainge, and pressure are back. Ursula Gardner APRN.CNP 08/13/2017 2:12 PM Signed This is a 61 year old female who presents today with: Patient presents with: Headache Head Congestion Neck Pain HISTORY OF PRESENT ILLNESS: Yamilex Mercado is a 61 year old female. Patient presents with: Headache Head Congestion Neck Pain Pt presents today with complaint of headache. Thinks that it may related to sinuses. Refers that she has a lot of phlegm. Refers that her left ear is plugged up some. Refers that she does feel gzga-lzkps-mgld. + cough. Refers that she will cough so much that she will almost pass out. + smoker. No fever/chills. Treated with clindamycin a couple of weeks ago when she was [place] of state. Refers that she also has familiar tremors. Refers that she is adopted. Refers that she has a long-standing hx of tremors, which is better when she takes the xanax, however, she is being weaned off this. She met mother, who also has tremors. Refers that they've been getting worse since she is weaning the xanax. Refers that if she is in a hurry to do anything, will notice they are worse. Refers that she drops the hook a lot with crocheting. Refers that her anxiety is worse as well, which could be exacerbating the tremors. She is fearful, as she reports her mothers tremors are very significant. Reports having these tremors since she was young. Refers that she never seen a neurologist. PAST MEDICAL HISTORY: PAST MEDICAL HISTORY Diagnosis Date - Adjustment disorder with depressed mood - Kidney stones - Mixed hyperlipidemia Hyperlipidemia - Other and unspecified hyperlipidemia in the past - Type II or unspecified type diabetes mellitus without mention of complication, not stated as uncontrolled PAST SURGICAL HISTORY Procedure Laterality Date - APPENDECTOMY - ESWL kidney stones - PAST SURGICAL HISTORY OF tubal preg - PAST SURGICAL HISTORY OF remote left leg/ ankle with plates and screws - PAST SURGICAL HISTORY OF 11/29/2011 Bunion Removed - REMOVAL GALLBLADDER - REMOVAL OF OVARY(S) bilaterally with hysterectomy - TOTAL ABD HYSTERECTOMY+BLAD REPR ALLERGIES Ampicillin; Avelox [Moxifloxacin Hcl]; Bactrim [Sulfamethoxazole-Trimethoprim]; Doxycycline; Steroids [Corticosteroids (Glucocorticoids)] MEDICATIONS Current Outpatient Prescriptions: PARoxetine (PAXIL) 30 mg tablet take 1 tablet by mouth once daily cyclobenzaprine (FLEXERIL) 10 mg tablet take 1 tablet by mouth once daily Cholecalciferol, Vitamin D3, 5,000 unit cap Take 1 capsule by mouth once daily. ibuprofen (MOTRIN) 600 mg tablet take 1 tablet by mouth every 8 hours if needed for pain ALPRAZolam (XANAX) 0.5 mg tablet Try to slowly wean off medication over next 8 weeks. 1/2-1 tab twice a day as needed albuterol HFA (PROAIR HFA) 90 mcg/actuation inhaler Inhale 2 Puffs as instructed every 4 hours as needed. HYDROcodone-acetaminophen (NORCO) 5-325 mg per tablet Take 1 tablet by mouth every 8 hours as needed. pravastatin (PRAVACHOL) 20 mg tablet Take 1 tablet by mouth daily at bedtime. metFORMIN (GLUCOPHAGE) 850 mg tablet take 1 tablet by mouth twice a day with meals glimepiride (AMARYL) 1 mg tablet Take 0.5 tablets by mouth twice daily with meals. blood sugar diagnostic (BLOOD GLUCOSE TEST) test strip Test twice daily COMPOUNDED PRESCRIPTION powerstep orthoticsDx: posterior tibial tendon dysfunction flatfoot cyclobenzaprine (FLEXERIL) 10 mg tablet Take 10 mg by mouth once daily. polyethylene glycol 3350 (MIRALAX) 17 gram/dose powder Take 17 g by mouth once daily. For constipation from narcotics. budesonide (PULMICORT FLEXHALER) 180 mcg/actuation aepb Inhale 2 Puffs as instructed twice daily. Cholecalciferol, Vitamin D3, 2,000 unit cap Take 1 capsule by mouth once daily. calcium carbonate (CALTRATE) 600 mg (1,500 mg) tab Take 1 tablet by mouth once daily. blood sugar diagnostic (ACCU-CHEK JIMMIE) test strip Use for blood sugar testing once daily and as needed, 250.00 Lancets (ACCU-CHEK MULTICLIX LANCET) [facility] [place] blood sugar once daily. No current facility-administered medications for this visit. FAMILY HISTORY Problem Relation Age of Onset - Adopted: Yes - Diabetes Father - Diabetes Maternal Grandmother - Heart Father - Hypertension Father - Lipids Father - None Sister - Diabetes Daughter - Cancer Sister thyroid. 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 Has taken care of grandson. EXAM: BP 118/66 Pulse 80 Temp 36.9 ?C (98.4 ?F) (Tympanic) Resp 16 Wt 72.1 kg (159 lb) BMI 27.72 kg/m? PHYSICAL EXAM: General Appearance: Well appearing, alert, in no acute distress, well-hydrated, well nourished.. Skin: Skin color, texture, turgor normal, no suspicious rashes or lesions. Head: Normocephalic, no masses, lesions, tenderness or abnormalities. Eyes: Anicteric sclera. Pupils are equally round and reactive to light. Extraocular movements are intact. . Ears: External ears normal, canals clear, Normal TMs bilaterally. Oropharynx: Lips, mucosa, and tongue normal, teeth and gums normal, oropharynx normal. Neck: Supple, no adenopathy; thyroid symmetric, normal size, no bruits. Lungs: exp wheeze in the right upper field. Heart: RRR without murmur, gallop, or rubs. No ectopy. Abdomen: Abdomen soft, non-tender. Bowel sounds normal. No masses, organomegaly. Neurologic: Gait normal. Sensation grossly intact. + tremors of bilateral hands. ASSESSMENT/PLAN: 1. Essential tremor - ICD9: 333.1, ICD10: G25.0 (primary diagnosis) Will go ahead and start a low dose propranolol. She has about 10 xanax left -- taking 1/2 pill daily. Encouraged to start doing every other day. Propranolol will likely need to be increased, but will ensure patient tolerates. - PROPRANOLOL 10 MG TABLET - CONSULT TO NEUROLOGY 2. Depression with anxiety - ICD9: 300.4, ICD10: F41.8 Increased anxiety re: coming off the xanax. - PAROXETINE 40 MG TABLET 3. Acute non-recurrent maxillary sinusitis - ICD9: 461.0, ICD10: J01.00 - Supportive care with plenty of fluids, rest, and analgesia prn. - CEPHALEXIN 500 MG CAPSULE Discussed treatment plan and patient voices understanding. Patient's questions answered appropriately. Medications and potential side effects were discussed and patient voices understanding. Return to the office as scheduled or as needed for worsening/no improvement. Ursula Gardner APRN.NEGAR Gardner APRN.NEGAR 08/13/2017 1:51 PM Signed 1. Start the keflex three times daily X 10 days. 2. Paxil increased to 40 mg daily. 3. Start the propranolol twice daily to help with tremors. 4. Neurology referral placed. 5. Recheck in 1 month. Referring Provider: SELF [[id number]] Allergies As of Date: 08/13/2017 Noted Allergy Reaction AMPICILLIN 12/17/2006 8 - GI Upset Comments: Intolerance, can take cephalosporins AVELOX (MOXIFLOXACIN HCL) 09/21/2010 1 - Mental Status Change BACTRIM (SULFAMETHOXAZOLE-TRIMETH*03/05/2017 11 - Vomiting DOXYCYCLINE 12/17/2006 8 - GI Upset STEROIDS (CORTICOSTEROIDS (GLUCOC*12/12/2013 14 - Other: See Comments Comments: Anxiety, jittery and head feels funny Date Reviewed: 06/19/2017 Reviewed by: Jolene Aponte RN - Fully Assessed Reason for Visit: Headache [52] Head Congestion [234] Neck Pain [135] Primary Visit Diagnosis:Essential tremor [G25.0] Other Visit Diagnoses:Depression with anxiety [F41.8] Acute non-recurrent maxillary sinusitis [J01.00] Order(s):PARoxetine (PAXIL) 40 mg tabletTake 1 tablet by mouth once daily.Disp: 30 tabletRfl: 1 propranolol (INDERAL) 10 mg tabletTake 1 tablet by mouth twice daily.Disp: 60 tabletRfl: 2 CONSULT TO NEUROLOGY [9019] Order #: [id number]: 1 cephALEXin (KEFLEX) 500 mg capsuleTake 1 capsule by mouth three times daily.Disp: 30 capsuleRfl: 0 Prescriptions as of 08/13/2017 Sig: PAROXETINE 40 MG TABLET Take 1 tablet by mouth once d* PROPRANOLOL 10 MG TABLET Take 1 tablet by mouth twice * CEPHALEXIN 500 MG CAPSULE Take 1 capsule by mouth three* CYCLOBENZAPRINE 10 MG TABLET take 1 tablet by mouth once d* CHOLECALCIFEROL (VITAMIN D3) * Take 1 capsule by mouth once * IBUPROFEN 600 MG TABLET take 1 tablet by mouth every * ALPRAZOLAM 0.5 MG TABLET Try to slowly wean off medica* ALBUTEROL SULFATE HFA 90 MCG/* Inhale 2 Puffs as instructed * PRAVASTATIN 20 MG TABLET Take 1 tablet by mouth daily * METFORMIN 850 MG TABLET take 1 tablet by mouth twice * GLIMEPIRIDE 1 MG TABLET Take 0.5 tablets by mouth twi* BLOOD SUGAR DIAGNOSTIC STRIPS Test twice daily COMPOUNDED PRESCRIPTION powerstep orthotics Dx: post* CYCLOBENZAPRINE 10 MG TABLET Take 10 mg by mouth once clovis* POLYETHYLENE GLYCOL 3350 17 G* Take 17 g by mouth once daily* BUDESONIDE 180 MCG/ACTUATION * Inhale 2 Puffs as instructed * CHOLECALCIFEROL (VITAMIN D3) * Take 1 capsule by mouth once * CALCIUM CARBONATE 600 MG CALC* Take 1 tablet by mouth once d* BLOOD SUGAR DIAGNOSTIC STRIPS Use for blood sugar testing o* LANCETS Test blood sugar once daily. Problem List As Of Date 08/13/2017 Noted Resolved Well controlled type 2 diabetes mellitus with n*INVALID FOR* More... Hyperlipidemia with target LDL less than 70 [E7*INVALID FOR* Chronic low back pain [M54.5, G89.29] INVALID FOR* Depression with anxiety [F41.8] INVALID FOR* More... Fibromyalgia [M79.7] INVALID FOR* Osteoporosis [M81.0] INVALID FOR* More... Tobacco abuse [Z72.0] INVALID FOR* Pain in limb [M79.609] INVALID FOR* Atrophic vaginitis [N95.2] INVALID FOR* Hallux valgus, acquired [M20.10] INVALID FOR* Suture reaction [T81.89XA] INVALID FOR*04/08/2015 Dyspareunia [HTI6956] INVALID FOR* Vitamin D deficiency [E55.9] INVALID FOR* Degenerative disc disease [GUL5932] INVALID FOR* Scoliosis [M41.9] INVALID FOR* Lumbar radiculopathy [M54.16] INVALID FOR* Lumbar canal stenosis [M48.061] INVALID FOR* Essential tremor [G25.0] INVALID FOR* Other instructions from your clinician: 1. Start the keflex three times daily X 10 days. 2. Paxil increased to 40 mg daily. 3. Start the propranolol twice daily to help with tremors. 4. Neurology referral placed. 5. Recheck in 1 month. Visit Notes: >> Caitlyn Mathews Ma Mon August 13, 2017 12:58 PM Status: Signed SINUS: Patient has c/o sinus pressure and drainage. She was in [place] with family when it started. She called on 07/30/17, asking for an antibiotic to be called in. She had the symptoms for about a month at that point. She was given Clindamycin 300 mg TID for 7 days. She had some relief for a little bit but the headaches, drainge, and pressure are back. Prescriptions ordered this encounter Disp Refills Start End PAROXETINE 40 MG TABLET 30 t* 1 08/13/2017 Route: ORAL Sig: Take 1 tablet by mouth once daily. PROPRANOLOL 10 MG TABLET 60 t* 2 08/13/2017 Route: ORAL Sig: Take 1 tablet by mouth twice daily. CEPHALEXIN 500 MG CAPSULE 30 c* 0 08/13/2017 Route: ORAL Sig: Take 1 capsule by mouth three times daily. Medications Discontinued During This Encounter PARoxetine (PAXIL) 30 mg tablet 30 t* 2 08/06/2017 08/13/2017 Route: ORAL Sig: take 1 tablet by mouth once daily Disc: Dosage adjustment HYDROcodone-acetaminophen (NORCO) 5-* 30 t* 0 01/11/2017 08/13/2017 Class: Print RX Route: ORAL Sig: Take 1 tablet by mouth every 8 hours as needed. Disc: Course of therapy completed Disposition: Return if symptoms worsen or fail to improve. Follow-up and Disposition History Recorded Encounter Status:Closed by URSULA GARDNER CNP on 08/13/17 PROGRESS Observed: 06/19/2017 Status: COMPLETED Source: [place] 12:32 PM [facility] REPOSITORY [facility] ID: [id number] Author: Jackeline Vargas Service: (none) Author Type: Physician Type: Progress Notes Filed: 06/19/2017 12:41 PM Note Text: Follow up podiatric office visit for: Chief Complaint: This 61 year old who presents for follow up:left ankle pain and cement spacer of left fibula. Patient states she is doing very well. She no longer feels the past bump present to left ankle. She has been using afo outside the house but inside the house she is barefoot and has no issues. She has blood work from last month which was normal. She states that she is feeling very well. She is actually going to be leaving town for 2 months and will be back in 3 months. She has no other complaints. PAIN EVALUATION 06/19/2017 Pain Score: 5 Pain Location: Ankle-Left Description: Aching Duration Amount of Time: 2 Duration Units: Months Frequency: Intermittent Intervention: Relaxation;Medication ibuprofen Hemoglobin A1C Date Value Ref Range Status 09/06/2016 5.7 (H) 4.3 - 5.6 % Final Comment: [place] [employer] guidelines indicate that patients with HgbA1c in the range 5.7-6.4% are at increased risk for development of diabetes, and intervention by lifestyle modification may be beneficial. HgbA1c greater or equal to 6.5% is considered diagnostic of diabetes. PCP: Ashli Silva PA-C PAST MEDICAL HISTORY Diagnosis Date - Adjustment disorder with depressed mood - Kidney stones - Mixed hyperlipidemia Hyperlipidemia - Other and unspecified hyperlipidemia in the past - Type II or unspecified type diabetes mellitus without mention of complication, not stated as uncontrolled Current Outpatient Prescriptions: Cholecalciferol, Vitamin D3, 5,000 unit cap Take 1 capsule by mouth once daily. ibuprofen (MOTRIN) 600 mg tablet take 1 tablet by mouth every 8 hours if needed for pain ALPRAZolam (XANAX) 0.5 mg tablet Try to slowly wean off medication over next 8 weeks. 1/2-1 tab twice a day as needed cyclobenzaprine (FLEXERIL) 10 mg tablet Take 1 tablet by mouth once daily. PARoxetine (PAXIL) 30 mg tablet Take 1 tablet by mouth once daily. albuterol HFA (PROAIR HFA) 90 mcg/actuation inhaler Inhale 2 Puffs as instructed every 4 hours as needed. HYDROcodone-acetaminophen (NORCO) 5-325 mg per tablet Take 1 tablet by mouth every 8 hours as needed. pravastatin (PRAVACHOL) 20 mg tablet Take 1 tablet by mouth daily at bedtime. metFORMIN (GLUCOPHAGE) 850 mg tablet take 1 tablet by mouth twice a day with meals glimepiride (AMARYL) 1 mg tablet Take 0.5 tablets by mouth twice daily with meals. blood sugar diagnostic (BLOOD GLUCOSE TEST) test strip Test twice daily COMPOUNDED PRESCRIPTION powerstep orthoticsDx: posterior tibial tendon dysfunction flatfoot cyclobenzaprine (FLEXERIL) 10 mg tablet Take 10 mg by mouth once daily. polyethylene glycol 3350 (MIRALAX) 17 gram/dose powder Take 17 g by mouth once daily. For constipation from narcotics. budesonide (PULMICORT FLEXHALER) 180 mcg/actuation aepb Inhale 2 Puffs as instructed twice daily. calcium carbonate (CALTRATE) 600 mg (1,500 mg) tab Take 1 tablet by mouth once daily. blood sugar diagnostic (ACCU-CHEK JIMMIE) test strip Use for blood sugar testing once daily and as needed, 250.00 Lancets (ACCU-CHEK MULTICLIX LANCET) [facility] [place] Test blood sugar once daily. Cholecalciferol, Vitamin D3, 2,000 unit cap Take 1 capsule by mouth once daily. No current facility-administered medications for this visit. ALLERGIES Allergen Reactions - Ampicillin GI Upset Intolerance, can take cephalosporins - Avelox [Moxifloxaci* Mental Status Change - Bactrim [Sulfametho* Vomiting - Doxycycline GI Upset - Steroids [Corticost* Other: See Comments Anxiety, jittery and head feels funny PAST SURGICAL HISTORY Procedure Laterality Date - APPENDECTOMY - ESWL kidney stones - PAST SURGICAL HISTORY OF tubal preg - PAST SURGICAL HISTORY OF remote left leg/ ankle with plates and screws - PAST SURGICAL HISTORY OF 11/29/2011 Bunion Removed - REMOVAL GALLBLADDER - REMOVAL OF OVARY(S) bilaterally with hysterectomy - TOTAL ABD HYSTERECTOMY+BLAD REPR Physical Exam: Constitutional: Pt is a well developed 61 year old female who is alert, oriented, cooperative and in no apparent distress. OBJECTIVE: NVSI unchanged from previous visit. Dermatological: Nails 1-5 left are normal. Webspaces clean and dry 1-4 left. Skin appears well hydrated and supple. good color, texture, turgor. No open lesions present. No callosities present. No palpable soft-tissue mass noted of left foot. Ultrasound from outside hospital with no evidence of soft-tissue mass or fluid. Musculoskeletal/Orthopaedic: Patient has no pain to palpation of left ankle rom of left ankle is full without pain or crepitus. ASSESSMENT: (M86.8X6) Other osteomyelitis of left fibula (HCC) (primary encounter diagnosis) PLAN: 1. History and physical examination completed today. 2. Patient was examined and informed of current findings. I had long discussion with patient regarding past issues of soft-tissue swelling/possible mass in soft-tissue. Clinically I feel no mass on exam, likely just that of adipose tissue. She has no pain. I did discuss possible mri if she was having pain and could discuss removal of any such mass if one present. She states she has no issues. She no longer feels the mass. I suspect is more adipose tissue if any such tissue present. She has elected to hold on mri in favor of monitoring. 3. I did discuss retained cement spacer. It is not causing her any issues. Past blood work is wnl and xrays show stable cement spacer. I did discuss removal and she has refused in past and is now leaving for 2-3 months. Given her diabetes, her smoking, the fact she is not having any issues with this, I would favor leaving in especially if she is leaving town. One could take this out but would require bone grafting and likely plate fixation. She is not keen on this at this time. Will repeat blood work 4. F/u in 3 months or sooner if problems develop. Jackeline Vargas DPM C-REACTIVE PROTEIN Collected: 06/19/2017 Status: F Source: [place] 11:12 AM [facility] REPOSITORY TYPE CODE TESTS RESULT OUT OF REFERENCE UNITS RANGE LAB CRP <0.9 mg/dL C-Reactive 0.5 Protein Performed By: #### CRP, WSR, CBCDIF, VITD #### [facility] [place] [employer] [address] [place] [id number] [phone] SED RATE WESTERGREN Collected: 06/19/2017 Status: F Source: [place] 11:12 AM [facility] REPOSITORY TYPE CODE TESTS RESULT OUT OF REFERENCE UNITS RANGE LAB WSR 0-20 mm/hr Sed Rate Westergren 15 Performed By: #### CRP, WSR, CBCDIF, VITD #### [facility] [place] [facility] [address] [place], [place] [address] CBC AND DIFFERENTIAL Collected: 06/19/2017 Status: F Source: [place] 11:12 AM [facility] REPOSITORY TYPE CODE TESTS RESULT OUT OF REFERENCE UNITS RANGE LAB WBC 3.70-11.00 k/uL WBC 7.32 LAB RBC 3.90-5.20 m/uL RBC 3.91 LAB HGB 11.5-15.5 g/dL Low Hemoglobin 11.3 LAB HCT 36.0-46.0 % Hematocrit 36.4 LAB MCV 80.0-100.0 fL MCV 93.1 LAB MCH 26.0-34.0 pG MCH 28.9 LAB MCHC 30.5-36.0 g/dL MCHC 31.0 LAB RDWCV 11.5-15.0 % RDW-CV 14.3 LAB PLTCT 150-400 k/uL Platelet Count 212 LAB MPV 9.0-12.7 fL MPV 11.3 LAB ANEUT % Neut% 50.5 LAB AANEUT 1.45-7.50 k/uL Abs Neut 3.69 LAB ALYMP % Lymph% 36.9 LAB AALYMP 1.00-4.00 k/uL Abs Lymph 2.70 LAB AMONO % [place]% 7.4 LAB AAMONO <0.87 k/uL Abs [place] 0.54 LAB AEOS % Eosin% 4.4 LAB AAEOS <0.46 k/uL Abs Eosin 0.32 LAB ABASO % Baso% 0.8 LAB AABASO <0.11 k/uL Abs Baso 0.06 LAB AUNRBC 0 /100 WBC NRBCs 0.0 LAB ABNRBC <0.01 k/uL Absolute nRBC <0.01 LAB DTYP DTYPE Auto Diff Performed By: #### CRP, WSR, CBCDIF, VITD #### [facility] [place] [employer] [place] [address] VITAMIN D 25 HYDROXY Collected: 06/19/2017 Status: F Source: [place] 11:12 AM [facility] REPOSITORY TYPE CODE TESTS RESULT OUT OF REFERENCE UNITS RANGE LAB VITD 31.0-80.0 ng/mL Vitamin D 25 34.6 Hydroxy Result Comment: Classification of 25 [place] Vitamin D status: Insufficiency/Moderate Deficiency: < or = 30 ng/mL Sufficiency/Optimal Levels: 31 to 80 ng/mL Toxicity: > 100 ng/mL Test performed by chemiluminescent immunoassay. Performed By: #### CRP, WSR, CBCDIF, VITD #### [facility] [place] [employer] [place] [place] [address] CNOV Observed: 06/19/2017 Status: COMPLETED Source: [place] 10:40 AM [facility] REPOSITORY Office Visit (PODIWS) YAMILEX MERCADO ([id number]) 1955 F Date Time Provider Department 06/19/17 10:40 AM JACKELINE VARGAS During your visit today, we recorded the following information about you: Jolene Aponte RN 06/19/2017 10:59 AM Signed Labs today Follow up in 3 months Jackeline Vargas DPM 06/19/2017 12:41 PM Signed Follow up podiatric office visit for: Chief Complaint: This 61 year old who presents for follow up:left ankle pain and cement spacer of left fibula. Patient states she is doing very well. She no longer feels the past ANDquot;bumpANDquot; present to left ankle. She has been using afo outside the house but inside the house she is barefoot and has no issues. She has blood work from last month which was normal. She states that she is feeling very well. She is actually going to be leaving town for 2 months and will be back in 3 months. She has no other complaints. PAIN EVALUATION 06/19/2017 Pain Score: 5 Pain Location: Ankle-Left Description: Aching Duration Amount of Time: 2 Duration Units: Months Frequency: Intermittent Intervention: Relaxation;Medication ibuprofen Hemoglobin A1C Date Value Ref Range Status 09/06/2016 5.7 (H) 4.3 - 5.6 % Final Comment: [place] Diabetes [employer] guidelines indicate that patients with HgbA1c in the range 5.7-6.4% are at increased risk for development of diabetes, and intervention by lifestyle modification may be beneficial. HgbA1c greater or equal to 6.5% is considered diagnostic of diabetes. PCP: Ashli Silva PA-C PAST MEDICAL HISTORY Diagnosis Date - Adjustment disorder with depressed mood - Kidney stones - Mixed hyperlipidemia Hyperlipidemia - Other and unspecified hyperlipidemia in the past - Type II or unspecified type diabetes mellitus without mention of complication, not stated as uncontrolled Current Outpatient Prescriptions: Cholecalciferol, Vitamin D3, 5,000 unit cap Take 1 capsule by mouth once daily. ibuprofen (MOTRIN) 600 mg tablet take 1 tablet by mouth every 8 hours if needed for pain ALPRAZolam (XANAX) 0.5 mg tablet Try to slowly wean off medication over next 8 weeks. 1/2-1 tab twice a day as needed cyclobenzaprine (FLEXERIL) 10 mg tablet Take 1 tablet by mouth once daily. PARoxetine (PAXIL) 30 mg tablet Take 1 tablet by mouth once daily. albuterol HFA (PROAIR HFA) 90 mcg/actuation inhaler Inhale 2 Puffs as instructed every 4 hours as needed. HYDROcodone-acetaminophen (NORCO) 5-325 mg per tablet Take 1 tablet by mouth every 8 hours as needed. pravastatin (PRAVACHOL) 20 mg tablet Take 1 tablet by mouth daily at bedtime. metFORMIN (GLUCOPHAGE) 850 mg tablet take 1 tablet by mouth twice a day with meals glimepiride (AMARYL) 1 mg tablet Take 0.5 tablets by mouth twice daily with meals. blood sugar diagnostic (BLOOD GLUCOSE TEST) test strip Test twice daily COMPOUNDED PRESCRIPTION powerstep orthoticsDx: posterior tibial tendon dysfunction flatfoot cyclobenzaprine (FLEXERIL) 10 mg tablet Take 10 mg by mouth once daily. polyethylene glycol 3350 (MIRALAX) 17 gram/dose powder Take 17 g by mouth once daily. For constipation from narcotics. budesonide (PULMICORT FLEXHALER) 180 mcg/actuation aepb Inhale 2 Puffs as instructed twice daily. calcium carbonate (CALTRATE) 600 mg (1,500 mg) tab Take 1 tablet by mouth once daily. blood sugar diagnostic (ACCU-CHEK JIMMIE) test strip Use for blood sugar testing once daily and as needed, 250.00 Lancets (ACCU-CHEK MULTICLIX LANCET) [facility] [place] Test blood sugar once daily. Cholecalciferol, Vitamin D3, 2,000 unit cap Take 1 capsule by mouth once daily. No current facility-administered medications for this visit. ALLERGIES Allergen Reactions - Ampicillin GI Upset Intolerance, can take cephalosporins - Avelox [Moxifloxaci* Mental Status Change - Bactrim [Sulfametho* Vomiting - Doxycycline GI Upset - Steroids [Corticost* Other: See Comments Anxiety, ANDquot;jittery and head feels funnyANDquot; PAST SURGICAL HISTORY Procedure Laterality Date - APPENDECTOMY - ESWL kidney stones - PAST SURGICAL HISTORY OF tubal preg - PAST SURGICAL HISTORY OF remote left leg/ ankle with plates and screws - PAST SURGICAL HISTORY OF 11/29/2011 Bunion Removed - REMOVAL GALLBLADDER - REMOVAL OF OVARY(S) bilaterally with hysterectomy - TOTAL ABD HYSTERECTOMY+BLAD REPR Physical Exam: Constitutional: Pt is a well developed 61 year old female who is alert, oriented, cooperative and in no apparent distress. OBJECTIVE: NVSI unchanged from previous visit. Dermatological: Nails 1-5 left are normal. Webspaces clean and dry 1-4 left. Skin appears well hydrated and supple. good color, texture, turgor. No open lesions present. No callosities present. No palpable soft-tissue mass noted of left foot. Ultrasound from outside hospital with no evidence of soft- tissue mass or fluid. Musculoskeletal/Orthopaedic: Patient has no pain to palpation of left ankle rom of left ankle is full without pain or crepitus. ASSESSMENT: (M86.8X6) Other osteomyelitis of left fibula (HCC) (primary encounter diagnosis) PLAN: 1. History and physical examination completed today. 2. Patient was examined and informed of current findings. I had long discussion with patient regarding past issues of soft-tissue swelling/possible mass in soft-tissue. Clinically I feel no mass on exam, likely just that of adipose tissue. She has no pain. I did discuss possible mri if she was having pain and could discuss removal of any such mass if one present. She states she has no issues. She no longer feels the mass. I suspect is more adipose tissue if any such tissue present. She has elected to hold on mri in favor of monitoring. 3. I did discuss retained cement spacer. It is not causing her any issues. Past blood work is wnl and xrays show stable cement spacer. I did discuss removal and she has refused in past and is now leaving for 2-3 months. Given her diabetes, her smoking, the fact she is not having any issues with this, I would favor leaving in especially if she is leaving town. One could take this out but would require bone grafting and likely plate fixation. She is not keen on this at this time. Will repeat blood work 4. F/u in 3 months or sooner if problems develop. Jackeline Vargas DPM Referring Provider: JACKELINE VARGAS [[id number]] Allergies As of Date: 06/19/2017 Noted Allergy Reaction AMPICILLIN 12/17/2006 8 - GI Upset Comments: Intolerance, can take cephalosporins AVELOX (MOXIFLOXACIN HCL) 09/21/2010 1 - Mental Status Change BACTRIM (SULFAMETHOXAZOLE-TRIMETH*03/05/2017 11 - Vomiting DOXYCYCLINE 12/17/2006 8 - GI Upset STEROIDS (CORTICOSTEROIDS (GLUCOC*12/12/2013 14 - Other: See Comments Comments: Anxiety, jittery and head feels funny Date Reviewed: 06/19/2017 Reviewed by: Jolene Aponte RN - Fully Assessed Reason for Visit: Recheck [92] Primary Visit Diagnosis:Other osteomyelitis of left fibula (HCC) [M86.8X6] Prescriptions as of 06/19/2017 Sig: CHOLECALCIFEROL (VITAMIN D3) * Take 1 capsule by mouth once * IBUPROFEN 600 MG TABLET take 1 tablet by mouth every * ALPRAZOLAM 0.5 MG TABLET Try to slowly wean off medica* CYCLOBENZAPRINE 10 MG TABLET Take 1 tablet by mouth once d* PAROXETINE 30 MG TABLET Take 1 tablet by mouth once d* ALBUTEROL SULFATE HFA 90 MCG/* Inhale 2 Puffs as instructed * HYDROCODONE 5 MG-ACETAMINOPHE* Take 1 tablet by mouth every * PRAVASTATIN 20 MG TABLET Take 1 tablet by mouth daily * METFORMIN 850 MG TABLET take 1 tablet by mouth twice * GLIMEPIRIDE 1 MG TABLET Take 0.5 tablets by mouth twi* BLOOD SUGAR DIAGNOSTIC STRIPS Test twice daily COMPOUNDED PRESCRIPTION powerstep orthotics Dx: post* CYCLOBENZAPRINE 10 MG TABLET Take 10 mg by mouth once clovis* POLYETHYLENE GLYCOL 3350 17 G* Take 17 g by mouth once daily* BUDESONIDE 180 MCG/ACTUATION * Inhale 2 Puffs as instructed * CALCIUM CARBONATE 600 MG CALC* Take 1 tablet by mouth once d* BLOOD SUGAR DIAGNOSTIC STRIPS Use for blood sugar testing o* LANCETS Test blood sugar once daily. CHOLECALCIFEROL (VITAMIN D3) * Take 1 capsule by mouth once * Problem List As Of Date 06/19/2017 Noted Resolved Well controlled type 2 diabetes mellitus with n*INVALID FOR* More... Hyperlipidemia with target LDL less than 70 [E7*INVALID FOR* Chronic low back pain [M54.5, G89.29] INVALID FOR* Depression with anxiety [F41.8] INVALID FOR* More... Fibromyalgia [M79.7] INVALID FOR* Osteoporosis [M81.0] INVALID FOR* More... Tobacco abuse [Z72.0] INVALID FOR* Pain in limb [M79.609] INVALID FOR* Atrophic vaginitis [N95.2] INVALID FOR* Hallux valgus, acquired [M20.10] INVALID FOR* Suture reaction [T81.89XA] INVALID FOR*04/08/2015 Dyspareunia [[id number]] INVALID FOR* Vitamin D deficiency [E55.9] INVALID FOR* Degenerative disc disease [HCA5885] INVALID FOR* Scoliosis [M41.9] INVALID FOR* Lumbar radiculopathy [M54.16] INVALID FOR* Lumbar canal stenosis [M48.061] INVALID FOR* Other instructions from your clinician: Labs today Follow up in 3 months Disposition: Return in about 3 months (around 09/19/2017) for left ankle instability. Follow-up and Disposition History Recorded Encounter Status:Closed by JACKELINE VARGAS DPM on 06/19/17 DANNY Observed: 06/06/2017 Status: COMPLETED Source: [place] 12:00 AM [facility] REPOSITORY Telephone (PODIWS) YAMILEX MERCADO ([id number]) 1955 F Date Time Provider Department 06/06/17 JACKELINE VARGAS PODIWRuby During your visit today, we recorded the following information about you: Aby Hilario Ma 06/06/2017 12:38 PM Signed ----- Message from Jackeline Vargas sent at 06/06/2017 12:31 PM EDT ----- Attempted to contact patient to discuss labs. No answer. Please call her and let her know that all labs are within normal limits. Her vitamin d is normal but is relatively low normal so I would continue with vitamin d supplement. If she is not taking, we can call in some for her. Inflammatory labs are all normal and doing well. I would repeat those labs in one month. JESUS Ulrich Ma 06/06/2017 12:42 PM Signed Attempted to contact patient. No answer, unable to leave vm. Dr. Vargas, please file pended labs. Aby Vargas DPM 06/06/2017 12:47 PM Signed Orders filed JESUS Ulrich Ma 06/06/2017 2:38 PM Signed Patient notified and verbalized understanding. Asked patient if she needed refill of Vitamin D, patient states that she is and has been taking caltrate. Reviewed med list with patient again, patient denies taking Vit D 2,000 IU cap daily. Patient informed that we will send prescription for Vit D to pharmacy. Patient agreeable and verbalized understanding. Dr. Vargas, please file pended orders Pending Prescriptions Disp Refills CHOLECALCIFEROL (VITAMIN D3) 5,000 UNIT CAPSULE 90 capsule 3 Sig: Take 1 capsule by mouth once daily. Please review and advise. Aby Hilario Ma 06/06/2017 2:38 PM Signed Addended by: ABY HILARIO MA on: 06/06/2017 02:38 PM Modules accepted: Orders Aby Hilario Ma 06/07/2017 9:[address] Vargas, please see below note, if agreeable to send RX for Vit D; please file. Aby Vargas DPM 06/07/2017 9:46 AM Signed Addended by: JACKELINE VARGAS DPM on: 06/07/2017 09:46 AM Modules accepted: Orders Aby Hilario Ma 06/07/2017 10:16 AM Signed The following approved medication requests have been transmitted electronically. Signed Prescriptions Disp Refills Cholecalciferol, Vitamin D3, 5,000 unit cap 90 capsule 3 Sig: Take 1 capsule by mouth once daily. Authorizing Provider: JACKELINE VARGAS Ma Allergies As of Date: 06/06/2017 Noted Allergy Reaction AMPICILLIN 12/17/2006 8 - GI Upset Comments: Intolerance, can take cephalosporins AVELOX (MOXIFLOXACIN HCL) 09/21/2010 1 - Mental Status Change BACTRIM (SULFAMETHOXAZOLE-TRIMETH*03/05/2017 11 - Vomiting DOXYCYCLINE 12/17/2006 8 - GI Upset STEROIDS (CORTICOSTEROIDS (GLUCOC*12/12/2013 14 - Other: See Comments Comments: Anxiety, jittery and head feels funny Date Reviewed: 06/05/2017 Reviewed by: Jolene Aponte RN - Fully Assessed Reason for Visit: Results [95] Primary Visit Diagnosis:Vitamin D deficiency [E55.9] Other Visit Diagnosis:Acquired hallux valgus, unspecified laterality [M20.10] Order(s):SED RATE WESTERGREN [SQWSR] Order #: [id number] FUTURE C-REACTIVE PROTEIN (CRP) [SQCRP] Order #: [id number] FUTURE CBC + DIFF [SQCBCDIF] Order #: [id number] FUTURE VITAMIN D 25 HYDROXY [SQVITD] Order #: [id number] FUTURE Cholecalciferol, Vitamin D3, 5,000 unit capTake 1 capsule by mouth once daily.Disp: 90 capsuleRfl: 3 Prescriptions as of 06/06/2017 Sig: CHOLECALCIFEROL (VITAMIN D3) * Take 1 capsule by mouth once * IBUPROFEN 600 MG TABLET take 1 tablet by mouth every * ALPRAZOLAM 0.5 MG TABLET Try to slowly wean off medica* CYCLOBENZAPRINE 10 MG TABLET Take 1 tablet by mouth once d* PAROXETINE 30 MG TABLET Take 1 tablet by mouth once d* ALBUTEROL SULFATE HFA 90 MCG/* Inhale 2 Puffs as instructed * HYDROCODONE 5 MG-ACETAMINOPHE* Take 1 tablet by mouth every * PRAVASTATIN 20 MG TABLET Take 1 tablet by mouth daily * METFORMIN 850 MG TABLET take 1 tablet by mouth twice * GLIMEPIRIDE 1 MG TABLET Take 0.5 tablets by mouth twi* BLOOD SUGAR DIAGNOSTIC STRIPS Test twice daily COMPOUNDED PRESCRIPTION powerstep orthotics Dx: post* CYCLOBENZAPRINE 10 MG TABLET Take 10 mg by mouth once clovis* POLYETHYLENE GLYCOL 3350 17 G* Take 17 g by mouth once daily* BUDESONIDE 180 MCG/ACTUATION * Inhale 2 Puffs as instructed * CHOLECALCIFEROL (VITAMIN D3) * Take 1 capsule by mouth once * CALCIUM CARBONATE 600 MG CALC* Take 1 tablet by mouth once d* BLOOD SUGAR DIAGNOSTIC STRIPS Use for blood sugar testing o* LANCETS Test blood sugar once daily. Medication notes this encounter CHOLECALCIFEROL (VITAMIN D3) 2,000 UNIT CAPSULE >> Aby Pooja Guptae Haris 06/06/2017 2:36 PM >> SULAIMANABY Perez MA Wed Jun 06, 2017 2:36 PM Not taking. Please d/c Problem List As Of Date 06/06/2017 Noted Resolved Well controlled type 2 diabetes mellitus with n*INVALID FOR* More... Hyperlipidemia with target LDL less than 70 [E7*INVALID FOR* Chronic low back pain [M54.5, G89.29] INVALID FOR* Depression with anxiety [F41.8] INVALID FOR* More... Fibromyalgia [M79.7] INVALID FOR* Osteoporosis [M81.0] INVALID FOR* More... Tobacco abuse [Z72.0] INVALID FOR* Pain in limb [M79.609] INVALID FOR* Atrophic vaginitis [N95.2] INVALID FOR* Hallux valgus, acquired [M20.10] INVALID FOR* Suture reaction [T81.89XA] INVALID FOR*04/08/2015 Dyspareunia [SKM2564] INVALID FOR* Vitamin D deficiency [E55.9] INVALID FOR* Degenerative disc disease [MEG3138] INVALID FOR* Scoliosis [M41.9] INVALID FOR* Lumbar radiculopathy [M54.16] INVALID FOR* Lumbar canal stenosis [M48.061] INVALID FOR* Prescriptions ordered this encounter Disp Refills Start End CHOLECALCIFEROL (VITAMIN D3) 5,000 U* 90 c* 3 06/07/2017 Route: ORAL Sig: Take 1 capsule by mouth once daily. Encounter Status:Closed by JACKELINE VARGAS DPM on 06/06/17 XR ANKLE 3V AP/LAT/OBL Observed: 06/05/2017 Status: F Source: [facility] 12:[address] [facility] REPOSITORY * * *Final Report* * * DATE OF EXAM: Jun 05 2017 12:00PM WRX [id number] - XR ANKLE 3V AP/LAT/OBL LT / PROCEDURE REASON: Other osteomyelitis, lower leg * * * * Physician Interpretation * * * * HISTORY: 61-YEAR-OLD FEMALE WITH Other osteomyelitis, lower leg . pt states hx of osteomyelitis cement filler with antibiotics put in checking for placement TECHNIQUE: XR ANKLE 3V AP/LAT/OBL LT Laterality: LEFT Number of different views (projections): 3 COMPARISON: 04/20/2017 RESULT: There is a 15 mm long by 11 mm wide by 7.5 mm anterior posterior direction area antibiotic impregnated methacrylate in the lateral malleolus which is minimally prominent.. No periostitis. No lytic lesions or evidence of active osteomyelitis in this examination. Remote healed fracture lateral malleolus. The ankle mortise is asymmetrically narrowed medially. Bones are osteopenic. Enthesophyte on the calcaneus at the insertion of the Achilles tendon. Arterial callus occasions are present. No acute fracture. IMPRESSION: NO CHANGE COMPARED TO THE PREVIOUS EXAMINATION. Air Shovel Operator: TWIN Transcribe Date/Time: Jun 05 2017 12:46P Dictated by : AIMEE CLARK MD This examination was interpreted and the report reviewed and electronically signed by: AIMEE CLARK MD on Jun 05 2017 12:51PM EST [id number] PROGRESS Observed: 06/05/2017 Status: COMPLETED Source: [place] 11:52 AM [facility] REPOSITORY HNO ID: [id number] Author: Trista Blount (Rt) Carol Ann Simmons Service: (none) Author Type: Insurance Claims Clerk Type: Progress Notes Filed: 06/05/2017 12:00 PM Note Text: Radiology Service Progress Note PATIENT NAME: Yamilex Mercado DATE OF SERVICE: June 05, 2017 TIME: 11:52 AM PATIENT IDENTITY VERIFICATION COMPLETED USING TWO (2) METHODS: Patient confirmed name verbally and Date of . PATIENT GENDER DATA: Female. status: : No status: NO. PATIENT RELEVANT IMPLANT DATA REVIEWED: Not Applicable RADIOLOGY DEPARTMENT: General X-ray: Exam(s) Completed: Lower Extremity X-Ray(s): Ankle, Left: PERIPHERAL IV DATA: Not applicable SIGNED BY: RT Tio June 05, 2017 11:52 AM CBC AND DIFFERENTIAL Collected: 06/05/2017 Status: F Source: [place] 11:20 AM [facility] REPOSITORY TYPE CODE TESTS RESULT OUT OF REFERENCE UNITS RANGE LAB WBC 3.70-11.00 k/uL WBC 8.19 LAB RBC 3.90-5.20 m/uL RBC 4.06 LAB HGB 11.5-15.5 g/dL Hemoglobin 11.7 LAB HCT 36.0-46.0 % Hematocrit 37.8 LAB MCV 80.0-100.0 fL MCV 93.1 LAB MCH 26.0-34.0 pG MCH 28.8 LAB MCHC 30.5-36.0 g/dL MCHC 31.0 LAB RDWCV 11.5-15.0 % RDW-CV 14.4 LAB PLTCT 150-400 k/uL Platelet Count 238 LAB MPV 9.0-12.7 fL MPV 11.5 LAB ANEUT % Neut% 56.1 LAB AANEUT 1.45-7.50 k/uL Abs Neut 4.57 LAB ALYMP % Lymph% 32.5 LAB AALYMP 1.00-4.00 k/uL Abs Lymph 2.66 LAB AMONO % [place]% 7.4 LAB AAMONO <0.87 k/uL Abs [place] 0.61 LAB AEOS % Eosin% 3.3 LAB AAEOS <0.46 k/uL Abs Eosin 0.27 LAB ABASO % Baso% 0.7 LAB AABASO <0.11 k/uL Abs Baso 0.06 LAB AUNRBC 0 /100 WBC NRBCs 0.0 LAB ABNRBC <0.01 k/uL Absolute nRBC <0.01 LAB DTYP DTYPE Auto Diff Performed By: #### CBCDIF, WSR, CRP, VITD #### [facility] [place] [employer] [address] [place] [id number] SED RATE WESTERGREN Collected: 06/05/2017 Status: F Source: [place] 11:20 AM [facility] REPOSIT[facility] TYPE CODE TESTS RESULT OUT OF REFERENCE UNITS RANGE LAB WSR 0-20 mm/hr Sed Rate Westergren 10 Performed By: #### CBCDIF, WSR, CRP, VITD #### [facility] [place] [employer] [address] [place], [place] [address] C-REACTIVE PROTEIN Collected: 06/05/2017 Status: F Source: [place] 11:20 AM [facility] REPOS[facility] TYPE CODE TESTS RESULT OUT OF REFERENCE UNITS RANGE LAB CRP <0.9 mg/dL C-Reactive 0.5 Protein Performed By: #### CBCDIF, WSR, CRP, VITD #### [facility] [place] [employer] [address] [place], [place] [address] VITAMIN D 25 HYDROXY Collected: 06/05/2017 Status: F Source: [place] 11:20 AM [facility] REPOS[facility] TYPE CODE TESTS RESULT OUT OF REFERENCE UNITS RANGE LAB VITD 31.0-80.0 ng/mL Vitamin D 25 32.9 Hydroxy Result Comment: Classification of 25 [place] Vitamin D status: Insufficiency/Moderate Deficiency: < or = 30 ng/mL Sufficiency/Optimal Levels: 31 to 80 ng/mL Toxicity: > 100 ng/mL Test performed by chemiluminescent immunoassay. Performed By: #### CBCDIF, WSR, CRP, VITD #### [facility] [place] [employer] [address] [place], [place] [address] PROGRESS Observed: 06/05/2017 Status: COMPLETED Source: [place] 11:03 AM [facility] RE[facility] HNO ID: [id number] Author: Jackeline Vargas Service: (none) Author Type: Physician Type: Progress Notes Filed: 06/05/2017 11:14 AM Note Text: Follow up podiatric office visit for: Chief Complaint: This 61 year old who presents for follow up:pain in left ankle. Patient has chronic lower extremity pain to left subtalar joint and left ankle. She has hx of left fibular fracture that had orif. She had desired for removal of hardware but was informed that taking the hardware out would likely not eliminate her pain in subtalar joint. She is using afo for her pain in ankle and that does help, although she feels it is rubbing on the inside of her ankle. She had hardware removed in November and this procedure was complicated by suture abscess resulting in osteomyelitis. She had antibiotic bone cement placed in ankle and this has been in place ever since. I had discussed removing the bone cement but patient has refused. She is now interested in talking about removing the bone cement but is unable to do it now because of health issues with her son in law. She denies any n/v/f/c. She has no wound issues at this time. She did have blood work ordered but did not get this done. She has no other complaints. PAIN EVALUATION 06/05/2017 Pain Score: 4 Pain Location: Ankle-Left Description: Aching Duration Amount of Time: - several Duration Units: Years Frequency: Intermittent Intervention: Reposition;Relaxation rest Hemoglobin A1C Date Value Ref Range Status 09/06/2016 5.7 (H) 4.3 - 5.6 % Final Comment: [employer] guidelines indicate that patients with HgbA1c in the range 5.7-6.4% are at increased risk for development of diabetes, and intervention by lifestyle modification may be beneficial. HgbA1c greater or equal to 6.5% is considered diagnostic of diabetes. PCP: Ashli Silva PA-C PAST MEDICAL HISTORY Diagnosis Date - Adjustment disorder with depressed mood - Kidney stones - Mixed hyperlipidemia Hyperlipidemia - Other and unspecified hyperlipidemia in the past - Type II or unspecified type diabetes mellitus without mention of complication, not stated as uncontrolled Current Outpatient Prescriptions: ibuprofen (MOTRIN) 600 mg tablet take 1 tablet by mouth every 8 hours if needed for pain ALPRAZolam (XANAX) 0.5 mg tablet Try to slowly wean off medication over next 8 weeks. 1/2-1 tab twice a day as needed cyclobenzaprine (FLEXERIL) 10 mg tablet Take 1 tablet by mouth once daily. PARoxetine (PAXIL) 30 mg tablet Take 1 tablet by mouth once daily. albuterol HFA (PROAIR HFA) 90 mcg/actuation inhaler Inhale 2 Puffs as instructed every 4 hours as needed. HYDROcodone-acetaminophen (NORCO) 5-325 mg per tablet Take 1 tablet by mouth every 8 hours as needed. pravastatin (PRAVACHOL) 20 mg tablet Take 1 tablet by mouth daily at bedtime. metFORMIN (GLUCOPHAGE) 850 mg tablet take 1 tablet by mouth twice a day with meals glimepiride (AMARYL) 1 mg tablet Take 0.5 tablets by mouth twice daily with meals. blood sugar diagnostic (BLOOD GLUCOSE TEST) test strip Test twice daily COMPOUNDED PRESCRIPTION powerstep orthoticsDx: posterior tibial tendon dysfunction flatfoot cyclobenzaprine (FLEXERIL) 10 mg tablet Take 10 mg by mouth once daily. polyethylene glycol 3350 (MIRALAX) 17 gram/dose powder Take 17 g by mouth once daily. For constipation from narcotics. budesonide (PULMICORT FLEXHALER) 180 mcg/actuation aepb Inhale 2 Puffs as instructed twice daily. Cholecalciferol, Vitamin D3, 2,000 unit cap Take 1 capsule by mouth once daily. calcium carbonate (CALTRATE) 600 mg (1,500 mg) tab Take 1 tablet by mouth once daily. blood sugar diagnostic (ACCU-CHEK JIMMIE) test strip Use for blood sugar testing once daily and as needed, 250.00 Lancets (ACCU-CHEK MULTICLIX LANCET) [facility] [place] Test blood sugar once daily. No current facility-administered medications for this visit. ALLERGIES Allergen Reactions - Ampicillin GI Upset Intolerance, can take cephalosporins - Avelox [Moxifloxaci* Mental Status Change - Bactrim [Sulfametho* Vomiting - Doxycycline GI Upset - Steroids [Corticost* Other: See Comments Anxiety, jittery and head feels funny PAST SURGICAL HISTORY Procedure Laterality Date - APPENDECTOMY - ESWL kidney stones - PAST SURGICAL HISTORY OF tubal preg - PAST SURGICAL HISTORY OF remote left leg/ ankle with plates and screws - PAST SURGICAL HISTORY OF 11/29/2011 Bunion Removed - REMOVAL GALLBLADDER - REMOVAL OF OVARY(S) bilaterally with hysterectomy - TOTAL ABD HYSTERECTOMY+BLAD REPR Physical Exam: Constitutional: Pt is a well developed 61 year old female who is alert, oriented, cooperative and in no apparent distress. OBJECTIVE: NVSI unchanged from previous visit. Dermatological: Surgical incision is healed to left lateral ankle with no open sores or signs of infection. There is pain to palpation of left subtalar joint but no pain with palpation of left fibula There is mild swelling along the lateral subtalar joint, likely that of adipose tissue. Musculoskeletal/Orthopaedic: Patient has pain to palpation of left subtalar joint. No pain with palpation of left fibula No pain with rom of left ankle ASSESSMENT: (M86.8X6) Other osteomyelitis of left fibula ([facility]) (primary encounter diagnosis) (E11.43) Diabetic autonomic neuropathy associated with type 2 diabetes mellitus ([facility]) (E55.9) Vitamin D deficiency PLAN: 1. History and physical examination completed today. 2. Patient was examined and informed of current findings. She is s/p removal of hardware with complicated suture abscess resulting in osteomyelitis. She had bone cement placed in fibula and this has remained since surgery. I have discussed removal in past only to have patient opt against. She is now considering removal although she is not interested at this time because of health issues with her son in law and she does not wish to have done prior to summer. She did have blood work ordered but has yet to get this. I do want her to get the blood work and repeat xrays. If blood work is normal, I did discuss since she is not able to have removed at this time, monitoring. If blood work is abnormal, would likely require removal. 3. Patient now smoking again 1 pack of cigarettes/day. Patient informed that smoking does carry risk of slow healing. She understands this. I would only recommend removal of this bone cement if she is not smoking. 4. Discussed swelling in left subtalar joint. She does have flat foot and I suspect the soft-tissue swelling is likely that of adipose tissue. Continue with bracing. If bracing is rubbing, she is recommended to get brace modified. 5. Patient will f/u in 1 month. I will notify her of labs Jackeline Vargas DPM CNOV Observed: 06/05/2017 Status: COMPLETED Source: [place] 10:25 AM [facility] REPOS[facility] Office Visit (PODIWS) YAMILEX MERCADO ([id number]) 1955 F Date Time Provider Department 06/05/17 10:25 AM JACKELINE VARGAS During your visit today, we recorded the following information about you: Jackeline Vargas DPM 06/05/2017 11:14 AM Signed Follow up podiatric office visit for: Chief Complaint: This 61 year old who presents for follow up:pain in left ankle. Patient has chronic lower extremity pain to left subtalar joint and left ankle. She has hx of left fibular fracture that had orif. She had desired for removal of hardware but was informed that taking the hardware out would likely not eliminate her pain in subtalar joint. She is using afo for her pain in ankle and that does help, although she feels it is rubbing on the inside of her ankle. She had hardware removed in November and this procedure was complicated by suture abscess resulting in osteomyelitis. She had antibiotic bone cement placed in ankle and this has been in place ever since. I had discussed removing the bone cement but patient has refused. She is now interested in talking about removing the bone cement but is unable to do it now because of health issues with her son in law. She denies any n/v/f/c. She has no wound issues at this time. She did have blood work ordered but did not get this done. She has no other complaints. PAIN EVALUATION 06/05/2017 Pain Score: 4 Pain Location: Ankle-Left Description: Aching Duration Amount of Time: - several Duration Units: Years Frequency: Intermittent Intervention: Reposition;Relaxation rest Hemoglobin A1C Date Value Ref Range Status 09/06/2016 5.7 (H) 4.3 - 5.6 % Final Comment: [place] Diabetes Association guidelines indicate that patients with HgbA1c in the range 5.7-6.4% are at increased risk for development of diabetes, and intervention by lifestyle modification may be beneficial. HgbA1c greater or equal to 6.5% is considered diagnostic of diabetes. PCP: Ashli Silva PA-C PAST MEDICAL HISTORY Diagnosis Date - Adjustment disorder with depressed mood - Kidney stones - Mixed hyperlipidemia Hyperlipidemia - Other and unspecified hyperlipidemia in the past - Type II or unspecified type diabetes mellitus without mention of complication, not stated as uncontrolled Current Outpatient Prescriptions: ibuprofen (MOTRIN) 600 mg tablet take 1 tablet by mouth every 8 hours if needed for pain ALPRAZolam (XANAX) 0.5 mg tablet Try to slowly wean off medication over next 8 weeks. 1/2-1 tab twice a day as needed cyclobenzaprine (FLEXERIL) 10 mg tablet Take 1 tablet by mouth once daily. PARoxetine (PAXIL) 30 mg tablet Take 1 tablet by mouth once daily. albuterol HFA (PROAIR HFA) 90 mcg/actuation inhaler Inhale 2 Puffs as instructed every 4 hours as needed. HYDROcodone-acetaminophen (NORCO) 5-325 mg per tablet Take 1 tablet by mouth every 8 hours as needed. pravastatin (PRAVACHOL) 20 mg tablet Take 1 tablet by mouth daily at bedtime. metFORMIN (GLUCOPHAGE) 850 mg tablet take 1 tablet by mouth twice a day with meals glimepiride (AMARYL) 1 mg tablet Take 0.5 tablets by mouth twice daily with meals. blood sugar diagnostic (BLOOD GLUCOSE TEST) test strip Test twice daily COMPOUNDED PRESCRIPTION powerstep orthoticsDx: posterior tibial tendon dysfunction flatfoot cyclobenzaprine (FLEXERIL) 10 mg tablet Take 10 mg by mouth once daily. polyethylene glycol 3350 (MIRALAX) 17 gram/dose powder Take 17 g by mouth once daily. For constipation from narcotics. budesonide (PULMICORT FLEXHALER) 180 mcg/actuation aepb Inhale 2 Puffs as instructed twice daily. Cholecalciferol, Vitamin D3, 2,000 unit cap Take 1 capsule by mouth once daily. calcium carbonate (CALTRATE) 600 mg (1,500 mg) tab Take 1 tablet by mouth once daily. blood sugar diagnostic (ACCU-CHEK JIMMIE) test strip Use for blood sugar testing once daily and as needed, 250.00 Lancets (ACCU-CHEK MULTICLIX LANCET) [facility] [place] Test blood sugar once daily. No current facility-administered medications for this visit. ALLERGIES Allergen Reactions - Ampicillin GI Upset Intolerance, can take cephalosporins - Avelox [Moxifloxaci* Mental Status Change - Bactrim [Sulfametho* Vomiting - Doxycycline GI Upset - Steroids [Corticost* Other: See Comments Anxiety, ANDquot;jittery and head feels funnyANDquot; PAST SURGICAL HISTORY Procedure Laterality Date - APPENDECTOMY - ESWL kidney stones - PAST SURGICAL HISTORY OF tubal preg - PAST SURGICAL HISTORY OF remote left leg/ ankle with plates and screws - PAST SURGICAL HISTORY OF 11/29/2011 Bunion Removed - REMOVAL GALLBLADDER - REMOVAL OF OVARY(S) bilaterally with hysterectomy - TOTAL ABD HYSTERECTOMY+BLAD REPR Physical Exam: Constitutional: Pt is a well developed 61 year old female who is alert, oriented, cooperative and in no apparent distress. OBJECTIVE: NVSI unchanged from previous visit. Dermatological: Surgical incision is healed to left lateral ankle with no open sores or signs of infection. There is pain to palpation of left subtalar joint but no pain with palpation of left fibula There is mild swelling along the lateral subtalar joint, likely that of adipose tissue. Musculoskeletal/Orthopaedic: Patient has pain to palpation of left subtalar joint. No pain with palpation of left fibula No pain with rom of left ankle ASSESSMENT: (M86.8X6) Other osteomyelitis of left fibula (HCC) (primary encounter diagnosis) (E11.43) Diabetic autonomic neuropathy associated with type 2 diabetes mellitus (HCC) (E55.9) Vitamin D deficiency PLAN: 1. History and physical examination completed today. 2. Patient was examined and informed of current findings. She is s/p removal of hardware with complicated suture abscess resulting in osteomyelitis. She had bone cement placed in fibula and this has remained since surgery. I have discussed removal in past only to have patient opt against. She is now considering removal although she is not interested at this time because of health issues with her son in law and she does not wish to have done prior to summer. She did have blood work ordered but has yet to get this. I do want her to get the blood work and repeat xrays. If blood work is normal, I did discuss since she is not able to have removed at this time, monitoring. If blood work is abnormal, would likely require removal. 3. Patient now smoking again 1 pack of cigarettes/day. Patient informed that smoking does carry risk of slow healing. She understands this. I would only recommend removal of this bone cement if she is not smoking. 4. Discussed swelling in left subtalar joint. She does have flat foot and I suspect the soft-tissue swelling is likely that of adipose tissue. Continue with bracing. If bracing is rubbing, she is recommended to get brace modified. 5. Patient will f/u in 1 month. I will notify her of labs Jackeline Vargas DPM Referring Provider: JACKELINE VARGAS [[id number]] Allergies As of Date: 06/05/2017 Noted Allergy Reaction AMPICILLIN 12/17/2006 8 - GI Upset Comments: Intolerance, can take cephalosporins AVELOX (MOXIFLOXACIN HCL) 09/21/2010 1 - Mental Status Change BACTRIM (SULFAMETHOXAZOLE-TRIMETH*03/05/2017 11 - Vomiting DOXYCYCLINE 12/17/2006 8 - GI Upset STEROIDS (CORTICOSTEROIDS (GLUCOC*12/12/2013 14 - Other: See Comments Comments: Anxiety, jittery and head feels funny Date Reviewed: 06/05/2017 Reviewed by: Jolene Aponte RN - Fully Assessed Reason for Visit: Follow Up [171] Primary Visit Diagnosis:Other osteomyelitis of left fibula (HCC) [M86.8X6] Other Visit Diagnoses:Diabetic autonomic neuropathy associated with type 2 diabetes mellitus (HCC) [E11.43] Vitamin D deficiency [E55.9] Order(s):XR ANKLE GENERAL 3V AP/LAT/OBL LT [[id number]] Order #: [id number] FUTURE CBC + DIFF [SQCBCDIF] Order #: [id number] FUTURE SED RATE WESTERGREN [SQWSR] Order #: [id number] FUTURE C-REACTIVE PROTEIN (CRP) [SQCRP] Order #: [id number] FUTURE VITAMIN D 25 HYDROXY [SQVITD] Order #: [id number] FUTURE PARKING FOR HANDICAPPED [[id number]] Order #: [id number] Prescriptions as of 06/05/2017 Sig: IBUPROFEN 600 MG TABLET take 1 tablet by mouth every * ALPRAZOLAM 0.5 MG TABLET Try to slowly wean off medica* CYCLOBENZAPRINE 10 MG TABLET Take 1 tablet by mouth once d* PAROXETINE 30 MG TABLET Take 1 tablet by mouth once d* ALBUTEROL SULFATE HFA 90 MCG/* Inhale 2 Puffs as instructed * HYDROCODONE 5 MG-ACETAMINOPHE* Take 1 tablet by mouth every * PRAVASTATIN 20 MG TABLET Take 1 tablet by mouth daily * METFORMIN 850 MG TABLET take 1 tablet by mouth twice * GLIMEPIRIDE 1 MG TABLET Take 0.5 tablets by mouth twi* BLOOD SUGAR DIAGNOSTIC STRIPS Test twice daily COMPOUNDED PRESCRIPTION powerstep orthotics Dx: post* CYCLOBENZAPRINE 10 MG TABLET Take 10 mg by mouth once clovis* POLYETHYLENE GLYCOL 3350 17 G* Take 17 g by mouth once daily* BUDESONIDE 180 MCG/ACTUATION * Inhale 2 Puffs as instructed * CHOLECALCIFEROL (VITAMIN D3) * Take 1 capsule by mouth once * CALCIUM CARBONATE 600 MG CALC* Take 1 tablet by mouth once d* BLOOD SUGAR DIAGNOSTIC STRIPS Use for blood sugar testing o* LANCETS Test blood sugar once daily. Problem List As Of Date 06/05/2017 Noted Resolved Well controlled type 2 diabetes mellitus with n*INVALID FOR* More... Hyperlipidemia with target LDL less than 70 [E7*INVALID FOR* Chronic low back pain [M54.5, G89.29] INVALID FOR* Depression with anxiety [F41.8] INVALID FOR* More... Fibromyalgia [M79.7] INVALID FOR* Osteoporosis [M81.0] INVALID FOR* More... Tobacco abuse [Z72.0] INVALID FOR* Pain in limb [M79.609] INVALID FOR* Atrophic vaginitis [N95.2] INVALID FOR* Hallux valgus (acquired) [M20.10] INVALID FOR* Suture reaction [T81.89XA] INVALID FOR*04/08/2015 Dyspareunia [MBY6504] INVALID FOR* Vitamin D deficiency [E55.9] INVALID FOR* Degenerative disc disease [EXR1952] INVALID FOR* Scoliosis [M41.9] INVALID FOR* Lumbar radiculopathy [M54.16] INVALID FOR* Lumbar canal stenosis [M48.061] INVALID FOR* Encounter Status:Closed by JACKELINE VARGAS DPM on 06/05/17 CATE Observed: 05/23/2017 Status: COMPLETED Source: [place] 1:40 PM [facility] REPOSITORY [facility] YAMILEX MERCADO ([id number]) 1955 F Date Time Provider Department 05/23/17 1:40 PM Ashli SILVA) [facility] [place] During your visit today, we recorded the following information about you: Temperature Pulse Respiration Blood pressure 98.9 degrees 72/minute 24/minute 94/62 Weight 68.9 kg Ashli Silva PA-C 05/23/2017 2:53 PM Signed 61 year old female with c/o anxiety and withdrawal from Xanax. Dr. Danielle was providing her with the Xanax, but since he moved practices her prescription ran out and she has not had access to this medication. Her mother 20 years ago and her took her daughter from her during a custody coreas years aog, which she believes are life events that were the triggers to her anxiety issues. She has been on and off medications for anxiety, including Xanax, since these events took place. She states she is prescribed 1.0 mg tablets 2-3x daily as needed for anxiety but has only been taking 1/2 tab 2x daily (0.5 mg total daily). She states when she was in the prison in the fall she was receiving anxiety medications from the doctor in charge of her care there. She has been out of her Xanax for 5 days and she has developed tremors and insomnia from being off the medication. She has been having ANDquot;constant panic attacksANDquot; for the past 5 days and ANDquot;has not been able to do the things she normally doesANDquot; on a day to day basis. She is also feeling nervous due to a possible orthopedic surgery in her ankle to remove a cement block and antibiotic spacer that was placed due to a previous infection. She states she feels like she needs to be on the medication or else her anxiety is uncontrollable and she cannot stabilize her thoughts. Other than her anxiety and possible surgery, she states everything else is going ANDquot;as well as it can beANDquot;. She denies changes in mental status, vision changes, headaches, unintentional weight loss, recent illnesses, chest pain, palpitations, SOB, wheezing, abdominal pain, constipation, dysuria or excessive weakness. HISTORIES FAMILY HISTORY Problem Relation Age of Onset - Adopted: Yes - Diabetes Father - Diabetes Maternal Grandmother - Heart Father - Hypertension Father - Lipids Father - None Sister - Diabetes Daughter - Cancer Sister thyroid. PAST MEDICAL HISTORY Diagnosis Date - Adjustment disorder with depressed mood - Kidney stones - Mixed hyperlipidemia Hyperlipidemia - Other and unspecified hyperlipidemia in the past - Type II or unspecified type diabetes mellitus without mention of complication, not stated as uncontrolled PAST SURGICAL HISTORY Procedure Laterality Date - APPENDECTOMY - ESWL kidney stones - PAST SURGICAL HISTORY OF tubal preg - PAST SURGICAL HISTORY OF remote left leg/ ankle with plates and screws - PAST SURGICAL HISTORY OF 11/29/2011 Bunion Removed - REMOVAL GALLBLADDER - REMOVAL OF OVARY(S) bilaterally with hysterectomy - TOTAL ABD HYSTERECTOMY+BLAD REPR Social History Marital status: Spouse name: Years of education: 13 Number of children: 1 Occupational History 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 Has taken care of grandson. 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 Disp: 30 tablet Rfl: 0 PARoxetine (PAXIL) 30 mg tablet Take 1 tablet by mouth once daily. Disp: 30 tablet Rfl: 2 albuterol HFA (PROAIR HFA) 90 mcg/actuation inhaler Inhale 2 Puffs as instructed every 4 hours as needed. Disp: 1 Inhaler Rfl: 2 ibuprofen (MOTRIN) 600 mg tablet Take 1 tablet by mouth every 8 hours as needed for Pain. Disp: 90 tablet Rfl: 1 HYDROcodone-acetaminophen (NORCO) 5-325 mg per tablet Take 1 tablet by mouth every 8 hours as needed. Disp: 30 tablet Rfl: 0 pravastatin (PRAVACHOL) 20 mg tablet Take 1 tablet by mouth daily at bedtime. Disp: 90 tablet Rfl: 3 metFORMIN (GLUCOPHAGE) 850 mg tablet take 1 tablet by mouth twice a day with meals Disp: 60 tablet Rfl: 11 glimepiride (AMARYL) 1 mg tablet Take 0.5 tablets by mouth twice daily with meals. Disp: 30 tablet Rfl: 2 cyclobenzaprine (FLEXERIL) 10 mg tablet Take 10 mg by mouth once daily. Disp: Rfl: polyethylene glycol 3350 (MIRALAX) 17 gram/dose powder Take 17 g by mouth once daily. For constipation from narcotics. Disp: 1 Bottle Rfl: 2 budesonide (PULMICORT FLEXHALER) 180 mcg/actuation aepb Inhale 2 Puffs as instructed twice daily. Disp: 1 Inhaler Rfl: 2 Cholecalciferol, Vitamin D3, 2,000 unit cap Take 1 capsule by mouth once daily. Disp: 100 capsule Rfl: 3 calcium carbonate (CALTRATE) 600 mg (1,500 mg) tab Take 1 tablet by mouth once daily. Disp: 90 tablet Rfl: 3 cyclobenzaprine (FLEXERIL) 10 mg tablet Take 1 tablet by mouth once daily. Disp: 30 tablet Rfl: 1 blood sugar diagnostic (BLOOD GLUCOSE TEST) test strip Test twice daily Disp: 50 Strip Rfl: 6 COMPOUNDED PRESCRIPTION powerstep orthoticsDx: posterior tibial tendon dysfunction flatfoot Disp: 1 Device Rfl: 0 blood sugar diagnostic (ACCU-CHEK JIMMIE) test strip Use for blood sugar testing once daily and as needed, 250.00 Disp: 50 Each Rfl: 12 Lancets (ACCU-CHEK MULTICLIX LANCET) [facility] [place] blood sugar once daily. Disp: 30 Each Rfl: 6 No current facility-administered medications for this visit. DILATED RETINAL EXAM due on 05/30/2013 MAMMOGRAM due on 07/15/2015 DIABETIC FOOT EXAM due on 03/02/2016 FECAL OCCULT BLOOD due on 03/02/2016 INFLUENZA(1) due on 11/24/2016 URINE ALBUMIN CREATININE RATIO due on 01/04/2017 LDL due on 01/04/2017 HBA1C due on 03/08/2017 Component Latest Ref Rng ANDamp; Units 07/06/2014 12/09/2014 07/16/2015 01/05/2016 09/06/2016 Hemoglobin A1C 4.3 - 5.6 % 5.3 6.2 (H) 5.6 5.8 (H) 5.7 (H) Estimated Average Glucose mg/dL 105 131 114 120 117 Component Latest Ref Rng ANDamp; Units 04/27/2012 12/05/2013 07/06/2014 12/09/2014 04/08/2015 01/05/2016 09/06/2016 Protein, Total 6.3 - 8.0 g/dL 7.0 7.2 7.2 7.2 6.7 7.0 7.2 Albumin 3.9 - 4.9 g/dL 4.1 3.7 4.1 4.0 3.9 4.0 3.9 Calcium 8.5 - 10.2 mg/dL 9.2 9.3 9.6 9.3 9.6 9.4 9.7 Bilirubin, Total 0.2 - 1.3 mg/dL 0.3 0.2 0.3 0.3 ANDlt;0.2 0.2 0.3 Alkaline Phosphatase 32 - 117 U/L 55 57 63 57 49 55 50 AST 13 - 35 U/L 17 31 21 20 20 17 20 Glucose 74 - 99 mg/dL 90 100 79 104 (H) 110 (H) 97 122 (H) BUN 7 - 21 mg/dL 16 17 16 17 15 17 19 Creatinine 0.58 - 0.96 mg/dL 0.95 1.08 1.04 1.06 1.04 1.13 (H) 1.33 (H) Sodium 136 - 144 mmol/L 142 140 140 142 143 143 140 Potassium 3.7 - 5.1 mmol/L 4.2 4.5 4.4 4.3 4.6 4.2 4.3 Chloride 97 - 105 mmol/L 107 105 105 103 105 103 102 CO2 22 - 30 mmol/L 26 25 24 29 25 27 25 Anion Gap 9 - 18 mmol/L 9 10 11 10 13 13 13 ALT 7 - 38 U/L 15 21 17 15 19 11 14 eGFR- ANDgt;60 ANDgt;60 ANDgt;60 ANDgt;60 ANDgt;60 59 49 eGFR-All Other Races . ANDgt;60 52 54 53 54 49 40 EXAM: BP 94/62 Pulse 72 Temp 37.2 ?C (98.9 ?F) (Tympanic) Resp 24 Wt 68.9 kg (152 lb) BMI 26.5 kg/m2 Pleasant older woman with a constant tremor who appears nervous but in no acute distress. Alert and oriented all spheres. Normal affect and cognition. Speech normal. No deficits to learning or comprehension. Skin warm, dry, pink to lips and nailbeds. Normal turgor. Cardiovascular RRR no murmurs, gallops or rubs. Respirations regular and unlabored. No wheezes, rales, or rhonchi Extrem: no clubbing, cyanosis, edema. Extremities are warm and pink with prompt capillary refill. Assessment: 1. Benzodiazepine Withdrawal 2. Anxiety 3. Type II Diabetes Well Controlled Plan: 1. Prescription was written for 0.5 mg of Xanax to be taken as needed for anxiety. Patient was educated regarding the dependent effects of Benzodiazepine use and that withdrawal from these medications can be lead to seizures and even in severe cases. A plan was made to decrease the dose of Xanax from the original dose of 1.0 mg down to 0.5 mg and patient was instructed to take 1/2 tab two times daily as needed for anxiety, as well as monthly follow up visits to monitor her progress and the ability to continue to lower the dosage of the medication with an attempt to completely wean the patient off of this medication. She was informed that there are other medications available that could be used to treat her anxiety without the risk of dependency and withdrawal. She seemed to be unaware of the side effects of these medications or other potential options that could be used to treat her anxiety until today's visit. Patient is in agreement with the plan to slowly decrease the dose with an attempt for complete cessation of Benzodiazepine use in the future. See orders and/or patient instructions. Patient ( or Guardian) expressed understanding of instructions on review. Has f/u in 1 month to establish EMMA Chawla PA-C 05/23/2017 2:21 PM Signed Please return to the office on approximately as needed. Open access hours are: Sunday 8 am-6 pm Sunday 8 am-4 pm Sunday 8 am-4 pm 8 am-6 pm Sunday 8 am-4 pm Referring Provider: SELF [[id number]] Allergies As of Date: 05/23/2017 Noted Allergy Reaction AMPICILLIN 12/17/2006 8 - GI Upset Comments: Intolerance, can take cephalosporins AVELOX (MOXIFLOXACIN HCL) 09/21/2010 1 - Mental Status Change BACTRIM (SULFAMETHOXAZOLE-TRIMETH*03/05/2017 11 - Vomiting DOXYCYCLINE 12/17/2006 8 - GI Upset STEROIDS (CORTICOSTEROIDS (GLUCOC*12/12/2013 14 - Other: See Comments Comments: Anxiety, jittery and head feels funny Date Reviewed: 05/23/2017 Reviewed by: Olivia Espana LPN - Fully Assessed Reason for Visit: Anxiety [9] Primary Visit Diagnosis:Benzodiazepine withdrawal without complication (HCC) [F13.230] Other Visit Diagnoses:Depression with anxiety [F41.8] 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 manifestations (HCC) [E11.49] Order(s):ALPRAZolam (XANAX) 0.5 mg tabletTry to slowly wean off medication over next 8 weeks. 1/2-1 tab twice a day as neededDisp: 60 tabletRfl: 1 Prescriptions as of 05/23/2017 Sig: PAROXETINE 30 MG TABLET Take 1 tablet by mouth once d* ALBUTEROL SULFATE HFA 90 MCG/* Inhale 2 Puffs as instructed * IBUPROFEN 600 MG TABLET Take 1 tablet by mouth every * HYDROCODONE 5 MG-ACETAMINOPHE* Take 1 tablet by mouth every * PRAVASTATIN 20 MG TABLET Take 1 tablet by mouth daily * METFORMIN 850 MG TABLET take 1 tablet by mouth twice * GLIMEPIRIDE 1 MG TABLET Take 0.5 tablets by mouth twi* CYCLOBENZAPRINE 10 MG TABLET Take 10 mg by mouth once clovis* POLYETHYLENE GLYCOL 3350 17 G* Take 17 g by mouth once daily* BUDESONIDE 180 MCG/ACTUATION * Inhale 2 Puffs as instructed * CHOLECALCIFEROL (VITAMIN D3) * Take 1 capsule by mouth once * CALCIUM CARBONATE 600 MG CALC* Take 1 tablet by mouth once d* ALPRAZOLAM 0.5 MG TABLET Try to slowly wean off medica* CYCLOBENZAPRINE 10 MG TABLET Take 1 tablet by mouth once d* BLOOD SUGAR DIAGNOSTIC STRIPS Test twice daily COMPOUNDED PRESCRIPTION powerstep orthotics Dx: post* BLOOD SUGAR DIAGNOSTIC STRIPS Use for blood sugar testing o* LANCETS Test blood sugar once daily. Problem List As Of Date 05/23/2017 Noted Resolved Well controlled type 2 diabetes mellitus with n*INVALID FOR* More... Hyperlipidemia with target LDL less than 70 [E7*INVALID FOR* Chronic low back pain [M54.5, G89.29] INVALID FOR* Depression with anxiety [F41.8] INVALID FOR* More... Fibromyalgia [M79.7] INVALID FOR* Osteoporosis [M81.0] INVALID FOR* More... Tobacco abuse [Z72.0] INVALID FOR* Pain in limb [M79.609] INVALID FOR* Atrophic vaginitis [N95.2] INVALID FOR* Hallux valgus (acquired) [M20.10] INVALID FOR* Suture reaction [T81.89XA] INVALID FOR*04/08/2015 Dyspareunia [[id number]] INVALID FOR* Vitamin D deficiency [E55.9] INVALID FOR* Degenerative disc disease [YLJ1103] INVALID FOR* Scoliosis [M41.9] INVALID FOR* Lumbar radiculopathy [M54.16] INVALID FOR* Lumbar canal stenosis [M48.061] INVALID FOR* Other instructions from your clinician: Please return to the office on approximately as needed. Open access hours are: Sunday 8 am-6 pm Sunday 8 am-4 pm Sunday 8 am- 4 pm 8 am- 6 pm Sunday 8 am-4 pm Prescriptions ordered this encounter Disp Refills Start End ALPRAZOLAM 0.5 MG TABLET 60 t* 1 05/23/2017 07/21/2017 Class: Print RX Sig: Try to slowly wean off medication over next 8 weeks. 1/2-1 tab twice a day as needed Medications Discontinued During This Encounter sulindac (CLINORIL) 200 mg tablet 05/23/2017 Class: Historical Med Route: ORAL Sig: Take 200 mg by mouth twice daily. Disc: Reason for discontinue is not on file. codeine-guaiFENesin (ROBITUSSIN AC) * 120 * 0 03/05/2017 05/23/2017 Class: Print RX Route: ORAL Sig: Take 5-10 mL by mouth four times daily as needed for Cough. May cause drowsiness. Disc: Reason for discontinue is not on file. clindamycin (CLEOCIN) 300 mg capsule 21 c* 0 03/05/2017 05/23/2017 Route: ORAL Sig: Take 1 capsule by mouth three times daily. Disc: Reason for discontinue is not on file. ALPRAZolam (XANAX) 1 mg tablet 30 t* 0 04/25/2017 05/23/2017 Class: Print RX Route: ORAL Sig: Take 0.5-1 tablets by mouth three times daily as needed for Anxiety for up to 30 days. Disc: Reason for discontinue is not on file. Encounter Status:Closed by Ashli SILVA PA-C on 05/23/17 PROGRESS Observed: 05/23/2017 Status: COMPLETED Source: [place] 1:[address] [facility] REPOSITORY HNO ID: [id number] Author: Ashli Atkins (Emma) Ricardo Service: (none) Author Type: Physician Caretaker Grounds Type: Progress Notes Filed: 05/23/2017 2:53 PM Note Text: 61 year old female with c/o anxiety and withdrawal from Xanax. Dr. Danielle was providing her with the Xanax, but since he moved practices her prescription ran out and she has not had access to this medication. Her mother 20 years ago and her took her daughter from her during a custody coreas years aog, which she believes are life events that were the triggers to her anxiety issues. She has been on and off medications for anxiety, including Xanax, since these events took place. She states she is prescribed 1.0 mg tablets 2-3x daily as needed for anxiety but has only been taking 1/2 tab 2x daily (0.5 mg total daily). She states when she was in the prison in the fall she was receiving anxiety medications from the doctor in charge of her care there. She has been out of her Xanax for 5 days and she has developed tremors and insomnia from being off the medication. She has been having constant panic attacks for the past 5 days and has not been able to do the things she normally does on a day to day basis. She is also feeling nervous due to a possible orthopedic surgery in her ankle to remove a cement block and antibiotic spacer that was placed due to a previous infection. She states she feels like she needs to be on the medication or else her anxiety is uncontrollable and she cannot stabilize her thoughts. Other than her anxiety and possible surgery, she states everything else is going as well as it can be. She denies changes in mental status, vision changes, headaches, unintentional weight loss, recent illnesses, chest pain, palpitations, SOB, wheezing, abdominal pain, constipation, dysuria or excessive weakness. HISTORIES FAMILY HISTORY Problem Relation Age of Onset - Adopted: Yes - Diabetes Father - Diabetes Maternal Grandmother - Heart Father - Hypertension Father - Lipids Father - None Sister - Diabetes Daughter - Cancer Sister thyroid. PAST MEDICAL HISTORY Diagnosis Date - Adjustment disorder with depressed mood - Kidney stones - Mixed hyperlipidemia Hyperlipidemia - Other and unspecified hyperlipidemia in the past - Type II or unspecified type diabetes mellitus without mention of complication, not stated as uncontrolled PAST SURGICAL HISTORY Procedure Laterality Date - APPENDECTOMY - ESWL kidney stones - PAST SURGICAL HISTORY OF tubal preg - PAST SURGICAL HISTORY OF remote left leg/ ankle with plates and screws - PAST SURGICAL HISTORY OF 11/29/2011 Bunion Removed - REMOVAL GALLBLADDER - REMOVAL OF OVARY(S) bilaterally with hysterectomy - TOTAL ABD HYSTERECTOMY+BLAD REPR Social History Marital status: Spouse name: Years of education: 13 Number of children: 1 Occupational History 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 Has taken care of grandson. 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 Disp: 30 tablet Rfl: 0 PARoxetine (PAXIL) 30 mg tablet Take 1 tablet by mouth once daily. Disp: 30 tablet Rfl: 2 albuterol HFA (PROAIR HFA) 90 mcg/actuation inhaler Inhale 2 Puffs as instructed every 4 hours as needed. Disp: 1 Inhaler Rfl: 2 ibuprofen (MOTRIN) 600 mg tablet Take 1 tablet by mouth every 8 hours as needed for Pain. Disp: 90 tablet Rfl: 1 HYDROcodone-acetaminophen (NORCO) 5-325 mg per tablet Take 1 tablet by mouth every 8 hours as needed. Disp: 30 tablet Rfl: 0 pravastatin (PRAVACHOL) 20 mg tablet Take 1 tablet by mouth daily at bedtime. Disp: 90 tablet Rfl: 3 metFORMIN (GLUCOPHAGE) 850 mg tablet take 1 tablet by mouth twice a day with meals Disp: 60 tablet Rfl: 11 glimepiride (AMARYL) 1 mg tablet Take 0.5 tablets by mouth twice daily with meals. Disp: 30 tablet Rfl: 2 cyclobenzaprine (FLEXERIL) 10 mg tablet Take 10 mg by mouth once daily. Disp: Rfl: polyethylene glycol 3350 (MIRALAX) 17 gram/dose powder Take 17 g by mouth once daily. For constipation from narcotics. Disp: 1 Bottle Rfl: 2 budesonide (PULMICORT FLEXHALER) 180 mcg/actuation aepb Inhale 2 Puffs as instructed twice daily. Disp: 1 Inhaler Rfl: 2 Cholecalciferol, Vitamin D3, 2,000 unit cap Take 1 capsule by mouth once daily. Disp: 100 capsule Rfl: 3 calcium carbonate (CALTRATE) 600 mg (1,500 mg) tab Take 1 tablet by mouth once daily. Disp: 90 tablet Rfl: 3 cyclobenzaprine (FLEXERIL) 10 mg tablet Take 1 tablet by mouth once daily. Disp: 30 tablet Rfl: 1 blood sugar diagnostic (BLOOD GLUCOSE TEST) test strip Test twice daily Disp: 50 Strip Rfl: 6 COMPOUNDED PRESCRIPTION powerstep orthoticsDx: posterior tibial tendon dysfunction flatfoot Disp: 1 Device Rfl: 0 blood sugar diagnostic (ACCU-CHEK JIMMIE) test strip Use for blood sugar testing once daily and as needed, 250.00 Disp: 50 Each Rfl: 12 Lancets (ACCU-CHEK MULTICLIX LANCET) [facility] [place] blood sugar once daily. Disp: 30 Each Rfl: 6 No current facility-administered medications for this visit. DILATED RETINAL EXAM due on 05/30/2013 MAMMOGRAM due on 07/15/2015 DIABETIC FOOT EXAM due on 03/02/2016 FECAL OCCULT BLOOD due on 03/02/2016 INFLUENZA(1) due on 11/24/2016 URINE ALBUMIN CREATININE RATIO due on 01/04/2017 LDL due on 01/04/2017 HBA1C due on 03/08/2017 Component Latest Ref Rng AND Units 07/06/2014 12/09/2014 07/16/2015 01/05/2016 09/06/2016 Hemoglobin A1C 4.3 - 5.6 % 5.3 6.2 (H) 5.6 5.8 (H) 5.7 (H) Estimated Average Glucose mg/dL 105 131 114 120 117 Component Latest Ref Rng AND Units 04/27/2012 12/05/2013 07/06/2014 12/09/2014 04/08/2015 01/05/2016 09/06/2016 Protein, Total 6.3 - 8.0 g/dL 7.0 7.2 7.2 7.2 6.7 7.0 7.2 Albumin 3.9 - 4.9 g/dL 4.1 3.7 4.1 4.0 3.9 4.0 3.9 Calcium 8.5 - 10.2 mg/dL 9.2 9.3 9.6 9.3 9.6 9.4 9.7 Bilirubin, Total 0.2 - 1.3 mg/dL 0.3 0.2 0.3 0.3 <0.2 0.2 0.3 Alkaline Phosphatase 32 - 117 U/L 55 57 63 57 49 55 50 AST 13 - 35 U/L 17 31 21 20 20 17 20 Glucose 74 - 99 mg/dL 90 100 79 104 (H) 110 (H) 97 122 (H) BUN 7 - 21 mg/dL 16 17 16 17 15 17 19 Creatinine 0.58 - 0.96 mg/dL 0.95 1.08 1.04 1.06 1.04 1.13 (H) 1.33 (H) Sodium 136 - 144 mmol/L 142 140 140 142 143 143 140 Potassium 3.7 - 5.1 mmol/L 4.2 4.5 4.4 4.3 4.6 4.2 4.3 Chloride 97 - 105 mmol/L 107 105 105 103 105 103 102 CO2 22 - 30 mmol/L 26 25 24 29 25 27 25 Anion Gap 9 - 18 mmol/L 9 10 11 10 13 13 13 ALT 7 - 38 U/L 15 21 17 15 19 11 14 eGFR- >60 >60 >60 >60 >60 59 49 eGFR-All Other Races . >60 52 54 53 54 49 40 EXAM: BP 94/62 Pulse 72 Temp 37.2 ?C (98.9 ?F) (Tympanic) Resp 24 Wt 68.9 kg (152 lb) BMI 26.5 kg/m2 Pleasant older woman with a constant tremor who appears nervous but in no acute distress. Alert and oriented all spheres. Normal affect and cognition. Speech normal. No deficits to learning or comprehension. Skin warm, dry, pink to lips and nailbeds. Normal turgor. Cardiovascular RRR no murmurs, gallops or rubs. Respirations regular and unlabored. No wheezes, rales, or rhonchi Extrem: no clubbing, cyanosis, edema. Extremities are warm and pink with prompt capillary refill. Assessment: 1. Benzodiazepine Withdrawal 2. Anxiety 3. Type II Diabetes Well Controlled Plan: 1. Prescription was written for 0.5 mg of Xanax to be taken as needed for anxiety. Patient was educated regarding the dependent effects of Benzodiazepine use and that withdrawal from these medications can be lead to seizures and even in severe cases. A plan was made to decrease the dose of Xanax from the original dose of 1.0 mg down to 0.5 mg and patient was instructed to take 1/2 tab two times daily as needed for anxiety, as well as monthly follow up visits to monitor her progress and the ability to continue to lower the dosage of the medication with an attempt to completely wean the patient off of this medication. She was informed that there are other medications available that could be used to treat her anxiety without the risk of dependency and withdrawal. She seemed to be unaware of the side effects of these medications or other potential options that could be used to treat her anxiety until today's visit. Patient is in agreement with the plan to slowly decrease the dose with an attempt for complete cessation of Benzodiazepine use in the future. See orders and/or patient instructions. Patient ( or Guardian) expressed understanding of instructions on review. Has f/u in 1 month to luciano M EMMA Serna Observed: 05/11/2017 Status: COMPLETED Source: [place] 12:00 AM [facility] REPOSITORY Telephone ([employer]) YAMILEX MERCADO ([id number]) 1955 F Date Time Provider Department 05/11/17 NIRAV DANIELLE [employer] During your visit today, we recorded the following information about you: Caitlyn Mendoza Ma 05/11/2017 1:19 PM Signed Received Order for grab bar and incontinence supplies from [address]. Placed in pcps inbox for signature. Route to [facility] to fax. Caitlyn Mendoza Ma 05/15/2017 1:25 PM Signed Orders have been signed. Faxed to [phone] as requested. Transmission successful. Allergies As of Date: 05/11/2017 Noted Allergy Reaction AMPICILLIN 12/17/2006 8 - GI Upset Comments: Intolerance, can take cephalosporins AVELOX (MOXIFLOXACIN HCL) 09/21/2010 1 - Mental Status Change BACTRIM (SULFAMETHOXAZOLE-TRIMETH*03/05/2017 11 - Vomiting DOXYCYCLINE 12/17/2006 8 - GI Upset STEROIDS (CORTICOSTEROIDS (GLUCOC*12/12/2013 14 - Other: See Comments Comments: Anxiety, jittery and head feels funny Date Reviewed: 05/01/2017 Reviewed by: Aby Hilario Ma - Fully Assessed Reason for Visit: [facility] [Other] Cmt: Order for grab bar and incontinence supplies Prescriptions as of 05/11/2017 Sig: CYCLOBENZAPRINE 10 MG TABLET Take 1 tablet by mouth once d* ALPRAZOLAM 1 MG TABLET Take 0.5-1 tablets by mouth t* PAROXETINE 30 MG TABLET Take 1 tablet by mouth once d* ALBUTEROL SULFATE HFA 90 MCG/* Inhale 2 Puffs as instructed * IBUPROFEN 600 MG TABLET Take 1 tablet by mouth every * CODEINE 10 MG-GUAIFENESIN 100* Take 5-10 mL by mouth four ti* CLINDAMYCIN HCL 300 MG CAPSULE Take 1 capsule by mouth three* SULINDAC 200 MG TABLET Take 200 mg by mouth twice da* HYDROCODONE 5 MG-ACETAMINOPHE* Take 1 tablet by mouth every * PRAVASTATIN 20 MG TABLET Take 1 tablet by mouth daily * METFORMIN 850 MG TABLET take 1 tablet by mouth twice * GLIMEPIRIDE 1 MG TABLET Take 0.5 tablets by mouth twi* BLOOD SUGAR DIAGNOSTIC STRIPS Test twice daily COMPOUNDED PRESCRIPTION powerstep orthotics Dx: post* CYCLOBENZAPRINE 10 MG TABLET Take 10 mg by mouth once clovis* POLYETHYLENE GLYCOL 3350 17 G* Take 17 g by mouth once daily* BUDESONIDE 180 MCG/ACTUATION * Inhale 2 Puffs as instructed * CHOLECALCIFEROL (VITAMIN D3) * Take 1 capsule by mouth once * CALCIUM CARBONATE 600 MG CALC* Take 1 tablet by mouth once d* BLOOD SUGAR DIAGNOSTIC STRIPS Use for blood sugar testing o* LANCETS Test blood sugar once daily. Problem List As Of Date 05/11/2017 Noted Resolved Well controlled type 2 diabetes mellitus with n*INVALID FOR* More... Hyperlipidemia with target LDL less than 70 [E7*INVALID FOR* Chronic low back pain [M54.5, G89.29] INVALID FOR* Depression with anxiety [F41.8] INVALID FOR* More... Fibromyalgia [M79.7] INVALID FOR* Osteoporosis [M81.0] INVALID FOR* More... Tobacco abuse [Z72.0] INVALID FOR* Pain in limb [M79.609] INVALID FOR* Atrophic vaginitis [N95.2] INVALID FOR* Hallux valgus (acquired) [M20.10] INVALID FOR* Suture reaction [T81.89XA] INVALID FOR*04/08/2015 Dyspareunia [OUR3641] INVALID FOR* Vitamin D deficiency [E55.9] INVALID FOR* Degenerative disc disease [[id number]] INVALID FOR* Scoliosis [M41.9] INVALID FOR* Lumbar radiculopathy [M54.16] INVALID FOR* Lumbar canal stenosis [M48.061] INVALID FOR* Encounter Status:Closed by CAITLYN MENDOZA MA on 05/11/17 CNPN Observed: 05/02/2017 Status: COMPLETED Source: [place] 12:00 AM [facility] REPOSITORY Telephone ([employer]) YAMILEX MERCADO ([id number]) 1955 F Date Time Provider Department 05/02/17 NIRAV DANIELLE YAMILKA During your visit today, we recorded the following information about you: Caitlyn Mendoza Ma 05/02/2017 2:34 PM Signed Type of letter/form/fax request - Plan of Care Form received from [employer] 05/01/17 and placed on MD desk () for completion. Completed form needs to be faxed to [phone]. Route to [place] when form completed for processing Ghulam Murillo 05/04/2017 11:01 AM Signed Faxed. Confirmation fax received. Transmission successful. Allergies As of Date: 05/02/2017 Noted Allergy Reaction AMPICILLIN 12/17/2006 8 - GI Upset Comments: Intolerance, can take cephalosporins AVELOX (MOXIFLOXACIN HCL) 09/21/2010 1 - Mental Status Change BACTRIM (SULFAMETHOXAZOLE-TRIMETH*03/05/2017 11 - Vomiting DOXYCYCLINE 12/17/2006 8 - GI Upset STEROIDS (CORTICOSTEROIDS (GLUCOC*12/12/2013 14 - Other: See Comments Comments: Anxiety, jittery and head feels funny Date Reviewed: 05/01/2017 Reviewed by: bAy Hilario Ma - Fully Assessed Reason for Visit: Home Care [4073] Cmt: Orders for home care from [employer] 05/01/17 Prescriptions as of 05/02/2017 Sig: CYCLOBENZAPRINE 10 MG TABLET Take 1 tablet by mouth once d* ALPRAZOLAM 1 MG TABLET Take 0.5-1 tablets by mouth t* PAROXETINE 30 MG TABLET Take 1 tablet by mouth once d* ALBUTEROL SULFATE HFA 90 MCG/* Inhale 2 Puffs as instructed * IBUPROFEN 600 MG TABLET Take 1 tablet by mouth every * CODEINE 10 MG-GUAIFENESIN 100* Take 5-10 mL by mouth four ti* CLINDAMYCIN HCL 300 MG CAPSULE Take 1 capsule by mouth three* SULINDAC 200 MG TABLET Take 200 mg by mouth twice da* HYDROCODONE 5 MG-ACETAMINOPHE* Take 1 tablet by mouth every * PRAVASTATIN 20 MG TABLET Take 1 tablet by mouth daily * METFORMIN 850 MG TABLET take 1 tablet by mouth twice * GLIMEPIRIDE 1 MG TABLET Take 0.5 tablets by mouth twi* BLOOD SUGAR DIAGNOSTIC STRIPS Test twice daily COMPOUNDED PRESCRIPTION powerstep orthotics Dx: post* CYCLOBENZAPRINE 10 MG TABLET Take 10 mg by mouth once clovis* POLYETHYLENE GLYCOL 3350 17 G* Take 17 g by mouth once daily* BUDESONIDE 180 MCG/ACTUATION * Inhale 2 Puffs as instructed * CHOLECALCIFEROL (VITAMIN D3) * Take 1 capsule by mouth once * CALCIUM CARBONATE 600 MG CALC* Take 1 tablet by mouth once d* BLOOD SUGAR DIAGNOSTIC STRIPS Use for blood sugar testing o* LANCETS Test blood sugar once daily. Problem List As Of Date 05/02/2017 Noted Resolved Well controlled type 2 diabetes mellitus with n*INVALID FOR* More... Hyperlipidemia with target LDL less than 70 [E7*INVALID FOR* Chronic low back pain [M54.5, G89.29] INVALID FOR* Depression with anxiety [F41.8] INVALID FOR* More... Fibromyalgia [M79.7] INVALID FOR* Osteoporosis [M81.0] INVALID FOR* More... Tobacco abuse [Z72.0] INVALID FOR* Pain in limb [M79.609] INVALID FOR* Atrophic vaginitis [N95.2] INVALID FOR* Hallux valgus (acquired) [M20.10] INVALID FOR* Suture reaction [T81.89XA] INVALID FOR*04/08/2015 Dyspareunia [[id number]] INVALID FOR* Vitamin D deficiency [E55.9] INVALID FOR* Degenerative disc disease [FIF3774] INVALID FOR* Scoliosis [M41.9] INVALID FOR* Lumbar radiculopathy [M54.16] INVALID FOR* Lumbar canal stenosis [M48.061] INVALID FOR* Encounter Status:Closed by CAITLYN MENDOZA MA on 05/02/17 PROGRESS Observed: 05/01/2017 Status: COMPLETED Source: [place] 1:[address] [facility] REPOSITORY O ID: [id number] Author: Jackeline Vargas Service: (none) Author Type: Physician Type: Progress Notes Filed: 05/06/2017 8:49 AM Note Text: Follow up podiatric office visit for: Chief Complaint: This 61 year old who presents for follow up:left ankle. Patient recently received her bracing and shoes. She just started using them. She has started walking and around the house, she is ok. She has no pain when she is at home. Patient states that when she is walking long distances, she will have pain in her back radiating down her left side. She states the pain can increase significantly. She is requesting medication for her pain in her lower legs. She states the ankle does feel better. Patient did have ultrasound at hospital which showed no soft-tissue abnormalities. PAIN EVALUATION 05/01/2017 Pain Location: Ankle-Left Description: Aching Duration Amount of Time: 2 Duration Units: Months Frequency: Continuous Intervention: Reposition Hemoglobin A1C Date Value Ref Range Status 09/06/2016 5.7 (H) 4.3 - 5.6 % Final Comment: [place] [employer] guidelines indicate that patients with HgbA1c in the range 5.7-6.4% are at increased risk for development of diabetes, and intervention by lifestyle modification may be beneficial. HgbA1c greater or equal to 6.5% is considered diagnostic of diabetes. PCP: Nirav Danielle MD PAST MEDICAL HISTORY Diagnosis Date - Adjustment disorder with depressed mood - Kidney stones - Mixed hyperlipidemia Hyperlipidemia - Other and unspecified hyperlipidemia in the past - Type II or unspecified type diabetes mellitus without mention of complication, not stated as uncontrolled Current Outpatient Prescriptions: ALPRAZolam (XANAX) 1 mg tablet Take 0.5-1 tablets by mouth three times daily as needed for Anxiety for up to 30 days. PARoxetine (PAXIL) 30 mg tablet Take 1 tablet by mouth once daily. albuterol HFA (PROAIR HFA) 90 mcg/actuation inhaler Inhale 2 Puffs as instructed every 4 hours as needed. ibuprofen (MOTRIN) 600 mg tablet Take 1 tablet by mouth every 8 hours as needed for Pain. sulindac (CLINORIL) 200 mg tablet Take 200 mg by mouth twice daily. HYDROcodone-acetaminophen (NORCO) 5-325 mg per tablet Take 1 tablet by mouth every 8 hours as needed. pravastatin (PRAVACHOL) 20 mg tablet Take 1 tablet by mouth daily at bedtime. metFORMIN (GLUCOPHAGE) 850 mg tablet take 1 tablet by mouth twice a day with meals glimepiride (AMARYL) 1 mg tablet Take 0.5 tablets by mouth twice daily with meals. blood sugar diagnostic (BLOOD GLUCOSE TEST) test strip Test twice daily COMPOUNDED PRESCRIPTION [facility] orthoticsDx: posterior tibial tendon dysfunction flatfoot cyclobenzaprine (FLEXERIL) 10 mg tablet Take 10 mg by mouth once daily. polyethylene glycol 3350 (MIRALAX) 17 gram/dose powder Take 17 g by mouth once daily. For constipation from narcotics. budesonide (PULMICORT FLEXHALER) 180 mcg/actuation aepb Inhale 2 Puffs as instructed twice daily. Cholecalciferol, Vitamin D3, 2,000 unit cap Take 1 capsule by mouth once daily. calcium carbonate (CALTRATE) 600 mg (1,500 mg) tab Take 1 tablet by mouth once daily. blood sugar diagnostic (ACCU-CHEK JIMMIE) test strip Use for blood sugar testing once daily and as needed, 250.00 Lancets (ACCU-CHEK MULTICLIX LANCET) [facility] [place] Test blood sugar once daily. codeine-guaiFENesin (ROBITUSSIN AC) 10-100 mg/5 mL syrup Take 5-10 mL by mouth four times daily as needed for Cough. May cause drowsiness. clindamycin (CLEOCIN) 300 mg capsule Take 1 capsule by mouth three times daily. traMADol (ULTRAM) 50 mg tablet Take 1 tablet by mouth every 8 hours as needed. No current facility-administered medications for this visit. ALLERGIES Allergen Reactions - Ampicillin GI Upset Intolerance, can take cephalosporins - Avelox [Moxifloxaci* Mental Status Change - Bactrim [Sulfametho* Vomiting - Doxycycline GI Upset - Steroids [Corticost* Other: See Comments Anxiety, jittery and head feels funny PAST SURGICAL HISTORY Procedure Laterality Date - APPENDECTOMY - ESWL kidney stones - PAST SURGICAL HISTORY OF tubal preg - PAST SURGICAL HISTORY OF remote left leg/ ankle with plates and screws - PAST SURGICAL HISTORY OF 11/29/2011 Bunion Removed - REMOVAL GALLBLADDER - REMOVAL OF OVARY(S) bilaterally with hysterectomy - TOTAL ABD HYSTERECTOMY+BLAD REPR Physical Exam: Constitutional: Pt is a well developed 61 year old female who is alert, oriented, cooperative and in no apparent distress. OBJECTIVE: NVSI unchanged from previous visit. Dermatological: Nails 1-5 b/l are normal. Webspaces clean and dry 1-4 b/l. Skin appears well hydrated and supple. good color, texture, turgor. No open lesions present. No callosities present. Surgical incision to left leg remains healed with minimal scarring and no signs of infection. There is no pain with palpation of left ankle. There is minimal swelling. Palpable lump to left ankle likely that of adipose tissue. Musculoskeletal/Orthopaedic: Patient has no pain to palpation of left ankle rom of left ankle is full without pain or crepitus. Minimal swelling is present to left ankle joint. The palpable mass of left ankle likely that of adipose tissue. There is no pain. Ultrasound from outside hospital reviewed. No soft-tissue mass or infection. ASSESSMENT: (M86.8X6) Other osteomyelitis of left fibula (HCC) (primary encounter diagnosis) (E11.43) Diabetic autonomic neuropathy associated with type 2 diabetes mellitus (HCC) PLAN: 1. History and physical examination completed today. 2. Patient was examined and informed of current findings 3. Reviewed blood work from past office visit. Labs were all within normal limits. 4. Reviewed ultrasound with patient. There is no soft-tissue mass or infection. 5. I did discuss her concern about possible lump to left ankle. Informed patient this could be scar tissue vs adipose tissue. It is not causing her any pain. Discussed attempted aspiration but would expect no fluid given no findings on ultrasound. Discussed surgical options but she states there is no pain so she would rather monitor. Certainly the fact that she has resumed smoking places her at significant risk of wound compromise. She is not interested in any intervention at this time. 6. I again discussed the bone cement in left fibula. I did discuss removal with this patient. I informed patient that certainly there is small risk that this could be source of biofilm in future. Currently, her labs are all normal and she is not having any issues with the bone cement. xrays taken a few weeks ago show no compromise. I did suggest removal of this bone cement but she is not in favor of this. She would rather observe. She understands risks of infection or compromise. She understands this but would like to just monitor. 7. She is to continue with bracing and diabetic shoes 8. F/u in 1month and repeat cbc, esr, crp 9. Flexeril called in for muscle relaxant. Jackeline Vargas DPM EXT NON VASC Observed: 04/27/2017 Status: F Source: [place] LIMITED/SOFT TISS 11:46 AM [facility] REPOSITORY [facility] Imaging Services [address] [place] [address] Ext Non Vasc Limited/Soft Tiss MR#: [id number] Acct: [id number] Name: YAMILEX MERCADO Rep #: [id number] : 1955 F 61 From: Bin Daniels MD PCP: Rodrigo Danielle MD Status: REG CLI Study: Ext Non Vasc Limited/Soft Tiss Date of Exam: 04/27/17 Exam# [id number] Ordering Dr: Jackeline Vargas DPM STUDY: SUPERFICIAL ULTRASOUND - LEFT LATERAL ANKLE REASON FOR EXAM: Female, 61 years old. Palpable lump TECHNIQUE: A superficial ultrasound was performed with real- time and static purcell-scale imaging. COMPARISON: None. FINDINGS: No soft tissue abnormality was identified. US/Ext Non Vasc Limited/Soft Tiss IMPRESSION: Unremarkable study. 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 Aby Vargas DPM 04/23/2017 11:29 AM Signed Please inform patient that the pertinent labs ordered to monitor infection: cbc, esr, crp which were all drawn were within normal limits. I do not suspect any infectious etiology. I am going to wait for ultrasound to identify the local swelling that was appreciated on Sunday and not present on past appointments. I will talk with her after the ultrasound. If she has any questions, I am happy to discuss JESUS Ulrich RN 04/23/2017 1:00 PM Signed Pt notified of results and verbalized understanding. Pt states she was unable to make her appt today for the US because she did not have a ride so it has been rescheduled to this 04/27/17 on 12:00 pm. Allergies As of Date: 04/23/2017 Noted Allergy Reaction AMPICILLIN 12/17/2006 8 - GI Upset Comments: Intolerance, can take cephalosporins AVELOX (MOXIFLOXACIN HCL) 09/21/2010 1 - Mental Status Change BACTRIM (SULFAMETHOXAZOLE-TRIMETH*03/05/2017 11 - Vomiting DOXYCYCLINE 12/17/2006 8 - GI Upset STEROIDS (CORTICOSTEROIDS (GLUCOC*12/12/2013 14 - Other: See Comments Comments: Anxiety, jittery and head feels funny Date Reviewed: 04/20/2017 Reviewed by: Jolene Aponte RN - Fully Assessed Reason for Visit: Results [95] Prescriptions as of 04/23/2017 Sig: PAROXETINE 30 MG TABLET Take 1 tablet by mouth once d* ALBUTEROL SULFATE HFA 90 MCG/* Inhale 2 Puffs as instructed * IBUPROFEN 600 MG TABLET Take 1 tablet by mouth every * CODEINE 10 MG-GUAIFENESIN 100* Take 5-10 mL by mouth four ti* CLINDAMYCIN HCL 300 MG CAPSULE Take 1 capsule by mouth three* SULINDAC 200 MG TABLET Take 200 mg by mouth twice da* HYDROCODONE 5 MG-ACETAMINOPHE* Take 1 tablet by mouth every * ALPRAZOLAM 1 MG TABLET 1/2 to 1 tab tid prn TRAMADOL 50 MG TABLET Take 1 tablet by mouth every * PRAVASTATIN 20 MG TABLET Take 1 tablet by mouth daily * METFORMIN 850 MG TABLET take 1 tablet by mouth twice * GLIMEPIRIDE 1 MG TABLET Take 0.5 tablets by mouth twi* BLOOD SUGAR DIAGNOSTIC STRIPS Test twice daily COMPOUNDED PRESCRIPTION powerstep orthotics Dx: post* CYCLOBENZAPRINE 10 MG TABLET Take 10 mg by mouth once clovis* POLYETHYLENE GLYCOL 3350 17 G* Take 17 g by mouth once daily* BUDESONIDE 180 MCG/ACTUATION * Inhale 2 Puffs as instructed * CHOLECALCIFEROL (VITAMIN D3) * Take 1 capsule by mouth once * CALCIUM CARBONATE 600 MG CALC* Take 1 tablet by mouth once d* BLOOD SUGAR DIAGNOSTIC STRIPS Use for blood sugar testing o* LANCETS Test blood sugar once daily. Problem List As Of Date 04/23/2017 Noted Resolved Well controlled type 2 diabetes mellitus with n*INVALID FOR* More... Hyperlipidemia with target LDL less than 70 [E7*INVALID FOR* Chronic low back pain [M54.5, G89.29] INVALID FOR* Depression with anxiety [F41.8] INVALID FOR* More... Fibromyalgia [M79.7] INVALID FOR* Osteoporosis [M81.0] INVALID FOR* More... Tobacco abuse [Z72.0] INVALID FOR* Pain in limb [M79.609] INVALID FOR* Atrophic vaginitis [N95.2] INVALID FOR* Hallux valgus (acquired) [M20.10] INVALID FOR* Suture reaction [T81.89XA] INVALID FOR*04/08/2015 Dyspareunia [[id number]] INVALID FOR* Vitamin D deficiency [E55.9] INVALID FOR* Degenerative disc disease [MPQ6540] INVALID FOR* Scoliosis [M41.9] INVALID FOR* Lumbar radiculopathy [M54.16] INVALID FOR* Lumbar canal stenosis [M48.061] INVALID FOR* Encounter Status:Closed by JOLENE APONTE RN on 04/23/17 PROGRESS Observed: 04/22/2017 Status: COMPLETED Source: [place] 1:40 PM [facility] REPOSITORY HNO ID: [id number] Author: Jackeline aVrgas Service: (none) Author Type: Physician Type: Progress Notes Filed: 04/22/2017 1:56 PM Note Text: Follow up podiatric office visit for: Chief Complaint: This 61 year old who presents for follow up:left fibula osteomyelitis. She is currently using a boot when ambulating outside. Around the house, she is using ankle brace. She is wearing the boot outside as she lost her shoe and does not have the money to purchase a new pair. She is scheduled to receive diabetic shoes and afo next week. She does report developing a new Bubble to the lateral aspect of her left ankle just inferior to surgical incision. She denies any injury but she feels that this just developed and may have developed due to applying her brace on too tight. She states there is very little pain to her ankle and compared to her pain prior to surgery, there is significant reduction of her pain. We have discussed removal of cement spacer in the past. She has declined any surgical removal of this. She had blood work and xrays today. PAIN EVALUATION 04/20/2017 Pain Score: 6 Pain Location: Ankle-Left Description: Aching Duration Amount of Time: 2 Duration Units: Weeks Frequency: Intermittent Intervention: Relaxation Hemoglobin A1C Date Value Ref Range Status 09/06/2016 5.7 (H) 4.3 - 5.6 % Final Comment: [place] [employer] guidelines indicate that patients with HgbA1c in the range 5.7-6.4% are at increased risk for development of diabetes, and intervention by lifestyle modification may be beneficial. HgbA1c greater or equal to 6.5% is considered diagnostic of diabetes. PCP: Nirav Danielle MD PAST MEDICAL HISTORY Diagnosis Date - Adjustment disorder with depressed mood - Kidney stones - Mixed hyperlipidemia Hyperlipidemia - Other and unspecified hyperlipidemia in the past - Type II or unspecified type diabetes mellitus without mention of complication, not stated as uncontrolled Current Outpatient Prescriptions: PARoxetine (PAXIL) 30 mg tablet Take 1 tablet by mouth once daily. albuterol HFA (PROAIR HFA) 90 mcg/actuation inhaler Inhale 2 Puffs as instructed every 4 hours as needed. ibuprofen (MOTRIN) 600 mg tablet Take 1 tablet by mouth every 8 hours as needed for Pain. sulindac (CLINORIL) 200 mg tablet Take 200 mg by mouth twice daily. HYDROcodone-acetaminophen (NORCO) 5-325 mg per tablet Take 1 tablet by mouth every 8 hours as needed. ALPRAZolam (XANAX) 1 mg tablet 1/2 to 1 tab tid prn pravastatin (PRAVACHOL) 20 mg tablet Take 1 tablet by mouth daily at bedtime. metFORMIN (GLUCOPHAGE) 850 mg tablet take 1 tablet by mouth twice a day with meals glimepiride (AMARYL) 1 mg tablet Take 0.5 tablets by mouth twice daily with meals. blood sugar diagnostic (BLOOD GLUCOSE TEST) test strip Test twice daily COMPOUNDED PRESCRIPTION powerstep orthoticsDx: posterior tibial tendon dysfunction flatfoot cyclobenzaprine (FLEXERIL) 10 mg tablet Take 10 mg by mouth once daily. polyethylene glycol 3350 (MIRALAX) 17 gram/dose powder Take 17 g by mouth once daily. For constipation from narcotics. budesonide (PULMICORT FLEXHALER) 180 mcg/actuation aepb Inhale 2 Puffs as instructed twice daily. Cholecalciferol, Vitamin D3, 2,000 unit cap Take 1 capsule by mouth once daily. calcium carbonate (CALTRATE) 600 mg (1,500 mg) tab Take 1 tablet by mouth once daily. blood sugar diagnostic (ACCU-CHEK JIMMIE) test strip Use for blood sugar testing once daily and as needed, 250.00 Lancets (ACCU-CHEK MULTICLIX LANCET) [facility] [place] blood sugar once daily. codeine-guaiFENesin (ROBITUSSIN AC) 10-100 mg/5 mL syrup Take 5-10 mL by mouth four times daily as needed for Cough. May cause drowsiness. clindamycin (CLEOCIN) 300 mg capsule Take 1 capsule by mouth three times daily. traMADol (ULTRAM) 50 mg tablet Take 1 tablet by mouth every 8 hours as needed. No current facility-administered medications for this visit. ALLERGIES Allergen Reactions - Ampicillin GI Upset Intolerance, can take cephalosporins - Avelox [Moxifloxaci* Mental Status Change - Bactrim [Sulfametho* Vomiting - Doxycycline GI Upset - Steroids [Corticost* Other: See Comments Anxiety, jittery and head feels funny PAST SURGICAL HISTORY Procedure Laterality Date - APPENDECTOMY - ESWL kidney stones - PAST SURGICAL HISTORY OF tubal preg - PAST SURGICAL HISTORY OF remote left leg/ ankle with plates and screws - PAST SURGICAL HISTORY OF 11/29/2011 Bunion Removed - REMOVAL GALLBLADDER - REMOVAL OF OVARY(S) bilaterally with hysterectomy - TOTAL ABD HYSTERECTOMY+BLAD REPR Physical Exam: Constitutional: Pt is a well developed 61 year old female who is alert, oriented, cooperative and in no apparent distress. OBJECTIVE: NVSI unchanged from previous visit. Dermatological: Surgical incision is healed to left lower extremity with no skin compromise. There is no redness, no warmth, no local signs of infection. Toenails 1-5 left foot are dystrophic and painful. Musculoskeletal/Orthopaedic: Patient has very little pain to palpation of left fibula rom of left ankle is full without crepitus There is small palpable mass just inferior to her left ankle distal to surgical incision. There is very little pain with palpation of this area. No fluctance is noted. Xray of left ankle reviewed. No acute findings noted. There is stable appearance to left fibula. ASSESSMENT: (Z98.890) Post-operative state (primary encounter diagnosis) (M67.472) Ganglion of left ankle (M86.8X6) Other osteomyelitis of left fibula (HCC) PLAN: 1. History and physical examination completed today. 2. Patient was examined and informed of current findings. Discussed xray findings. Xray shows stable osseous structure with stable bone cement spacer. I have discussed in past and discussed again removal of this bone cement. She is very appehensive about surgery and potential risk of wound complications. Again I have discussed removal of the bone cement but she is reluctant to do so. Blood work is pending at this time. She is currently off antibiotic. Will await blood work and discuss results once final. 3. On exam today, there is new palpable mass just distal to left ankle and distal to surgical incision. She denies any injury. She thinks it could be from applying her splint on too tight as she just started using the splint and first noticed this the past few days. Informed patient that this could be normal adipose tissue vs ganglion vs lipoma. There is small risk of fluid collection such as abscess given past hx of infection but on exam, there is no local signs of infection so I have low suspicion for this. I will order musculoskeletal ultrasound to further review. If necessary, consider mri. If this is soft-tissue mass such as lipoma or ganglion, would elect conservative care given her hx of wound healing complications and given that she has returned to smoking and is smoking 1 pack per day. 4. I did discuss attempted aspiration of this today. She declined. 5. She will be receiving new diabetic shoes and brace next week. She has no shoes at home as she lost her shoes. Dispensed ankle brace and demonstrated proper application so that it is not applied too tightly. Dispensed surgical shoe. 6. F/u in 2 weeks or sooner pending ultrasound results and/or any changes develop. Jackeline Vargas DPM PROGRESS Observed: 04/20/2017 Status: COMPLETED Source: [place] 3:52 PM [facility] REPOSITORY HNO ID: [id number] Author: Jolene Aponte RN Service: (none) Author Type: (none) Type: Progress Notes Filed: 04/22/2017 1:56 PM Note Text: Per Yamilex Khan provided with a post op shoe and lace up ankle brace, both size small , and instructed/educated in its application, wear, and care. All questions were answered, and patient was able to demonstrate competence with the necessary skills to utilize the above equipment. Patient signed Mary PPA for ankle brace. Ankle brace billed to [facility]. Jolene Aponte RN CNOV Observed: 04/20/2017 Status: COMPLETED Source: [place] 2:55 PM [facility] REPOSITORY Office Visit (PODIWS) YAMILEX MERCADO ([id number]) 1955 F Date Time Provider Department 04/20/17 2:55 PM JACKELINE VARGAS PODIWRuby During your visit today, we recorded the following information about you: Jolene Aponte RN 04/22/2017 1:56 PM Signed Per Yamilex Khan provided with a post op shoe and lace up ankle brace, both size small , and instructed/educated in its application, wear, and care. All questions were answered, and patient was able to demonstrate competence with the necessary skills to utilize the above equipment. [facility]le brace billed to Mary. Jolene Vargas DPM 04/22/2017 1:56 PM Signed Follow up podiatric office visit for: Chief Complaint: This 61 year old who presents for follow up:left fibula osteomyelitis. She is currently using a boot when ambulating outside. Around the house, she is using ankle brace. She is wearing the boot outside as she lost her shoe and does not have the money to purchase a new pair. She is scheduled to receive diabetic shoes and afo next week. She does report developing a new ANDquot;BubbleANDquot; to the lateral aspect of her left ankle just inferior to surgical incision. She denies any injury but she feels that this just developed and may have developed due to applying her brace on too tight. She states there is very little pain to her ankle and compared to her pain prior to surgery, there is significant reduction of her pain. We have discussed removal of cement spacer in the past. She has declined any surgical removal of this. She had blood work and xrays today. PAIN EVALUATION 04/20/2017 Pain Score: 6 Pain Location: Ankle-Left Description: Aching Duration Amount of Time: 2 Duration Units: Weeks Frequency: Intermittent Intervention: Relaxation Hemoglobin A1C Date Value Ref Range Status 09/06/2016 5.7 (H) 4.3 - 5.6 % Final Comment: [place] [employer] guidelines indicate that patients with HgbA1c in the range 5.7-6.4% are at increased risk for development of diabetes, and intervention by lifestyle modification may be beneficial. HgbA1c greater or equal to 6.5% is considered diagnostic of diabetes. PCP: Nirav Danielle MD PAST MEDICAL HISTORY Diagnosis Date - Adjustment disorder with depressed mood - Kidney stones - Mixed hyperlipidemia Hyperlipidemia - Other and unspecified hyperlipidemia in the past - Type II or unspecified type diabetes mellitus without mention of complication, not stated as uncontrolled Current Outpatient Prescriptions: PARoxetine (PAXIL) 30 mg tablet Take 1 tablet by mouth once daily. albuterol HFA (PROAIR HFA) 90 mcg/actuation inhaler Inhale 2 Puffs as instructed every 4 hours as needed. ibuprofen (MOTRIN) 600 mg tablet Take 1 tablet by mouth every 8 hours as needed for Pain. sulindac (CLINORIL) 200 mg tablet Take 200 mg by mouth twice daily. HYDROcodone-acetaminophen (NORCO) 5-325 mg per tablet Take 1 tablet by mouth every 8 hours as needed. ALPRAZolam (XANAX) 1 mg tablet 1/2 to 1 tab tid prn pravastatin (PRAVACHOL) 20 mg tablet Take 1 tablet by mouth daily at bedtime. metFORMIN (GLUCOPHAGE) 850 mg tablet take 1 tablet by mouth twice a day with meals glimepiride (AMARYL) 1 mg tablet Take 0.5 tablets by mouth twice daily with meals. blood sugar diagnostic (BLOOD GLUCOSE TEST) test strip Test twice daily COMPOUNDED PRESCRIPTION powerstep orthoticsDx: posterior tibial tendon dysfunction flatfoot cyclobenzaprine (FLEXERIL) 10 mg tablet Take 10 mg by mouth once daily. polyethylene glycol 3350 (MIRALAX) 17 gram/dose powder Take 17 g by mouth once daily. For constipation from narcotics. budesonide (PULMICORT FLEXHALER) 180 mcg/actuation aepb Inhale 2 Puffs as instructed twice daily. Cholecalciferol, Vitamin D3, 2,000 unit cap Take 1 capsule by mouth once daily. calcium carbonate (CALTRATE) 600 mg (1,500 mg) tab Take 1 tablet by mouth once daily. blood sugar diagnostic (ACCU-CHEK JIMMIE) test strip Use for blood sugar testing once daily and as needed, 250.00 Lancets (ACCU-CHEK MULTICLIX LANCET) [facility] [place] Test blood sugar once daily. codeine-guaiFENesin (ROBITUSSIN AC) 10-100 mg/5 mL syrup Take 5-10 mL by mouth four times daily as needed for Cough. May cause drowsiness. clindamycin (CLEOCIN) 300 mg capsule Take 1 capsule by mouth three times daily. traMADol (ULTRAM) 50 mg tablet Take 1 tablet by mouth every 8 hours as needed. No current facility-administered medications for this visit. ALLERGIES Allergen Reactions - Ampicillin GI Upset Intolerance, can take cephalosporins - Avelox [Moxifloxaci* Mental Status Change - Bactrim [Sulfametho* Vomiting - Doxycycline GI Upset - Steroids [Corticost* Other: See Comments Anxiety, ANDquot;jittery and head feels funnyANDquot; PAST SURGICAL HISTORY Procedure Laterality Date - APPENDECTOMY - ESWL kidney stones - PAST SURGICAL HISTORY OF tubal preg - PAST SURGICAL HISTORY OF remote left leg/ ankle with plates and screws - PAST SURGICAL HISTORY OF 11/29/2011 Bunion Removed - REMOVAL GALLBLADDER - REMOVAL OF OVARY(S) bilaterally with hysterectomy - TOTAL ABD HYSTERECTOMY+BLAD REPR Physical Exam: Constitutional: Pt is a well developed 61 year old female who is alert, oriented, cooperative and in no apparent distress. OBJECTIVE: NVSI unchanged from previous visit. Dermatological: Surgical incision is healed to left lower extremity with no skin compromise. There is no redness, no warmth, no local signs of infection. Toenails 1-5 left foot are dystrophic and painful. Musculoskeletal/Orthopaedic: Patient has very little pain to palpation of left fibula rom of left ankle is full without crepitus There is small palpable mass just inferior to her left ankle distal to surgical incision. There is very little pain with palpation of this area. No fluctance is noted. Xray of left ankle reviewed. No acute findings noted. There is stable appearance to left fibula. ASSESSMENT: (Z98.890) Post-operative state (primary encounter diagnosis) (M67.472) Ganglion of left ankle (M86.8X6) Other osteomyelitis of left fibula (HCC) PLAN: 1. History and physical examination completed today. 2. Patient was examined and informed of current findings. Discussed xray findings. Xray shows stable osseous structure with stable bone cement spacer. I have discussed in past and discussed again removal of this bone cement. She is very appehensive about surgery and potential risk of wound complications. Again I have discussed removal of the bone cement but she is reluctant to do so. Blood work is pending at this time. She is currently off antibiotic. Will await blood work and discuss results once final. 3. On exam today, there is new palpable mass just distal to left ankle and distal to surgical incision. She denies any injury. She thinks it could be from applying her splint on too tight as she just started using the splint and first noticed this the past few days. Informed patient that this could be normal adipose tissue vs ganglion vs lipoma. There is small risk of fluid collection such as abscess given past hx of infection but on exam, there is no local signs of infection so I have low suspicion for this. I will order musculoskeletal ultrasound to further review. If necessary, consider mri. If this is soft-tissue mass such as lipoma or ganglion, would elect conservative care given her hx of wound healing complications and given that she has returned to smoking and is smoking 1 pack per day. 4. I did discuss attempted aspiration of this today. She declined. 5. She will be receiving new diabetic shoes and brace next week. She has no shoes at home as she lost her shoes. Dispensed ankle brace and demonstrated proper application so that it is not applied too tightly. Dispensed surgical shoe. 6. F/u in 2 weeks or sooner pending ultrasound results and/or any changes develop. Jackeline Vargas DPM Referring Provider: JACKELINE VARGAS [[id number]] Allergies As of Date: 04/20/2017 Noted Allergy Reaction AMPICILLIN 12/17/2006 8 - GI Upset Comments: Intolerance, can take cephalosporins AVELOX (MOXIFLOXACIN HCL) 09/21/2010 1 - Mental Status Change BACTRIM (SULFAMETHOXAZOLE-TRIMETH*03/05/2017 11 - Vomiting DOXYCYCLINE 12/17/2006 8 - GI Upset STEROIDS (CORTICOSTEROIDS (GLUCOC*12/12/2013 14 - Other: See Comments Comments: Anxiety, jittery and head feels funny Date Reviewed: 04/20/2017 Reviewed by: Jolene Aponte RN - Fully Assessed Reason for Visit: Follow Up [171] Primary Visit Diagnosis:Post-operative state [Z98.890] Other Visit Diagnoses:Ganglion of left ankle [M67.472] Other osteomyelitis of left fibula (HCC) [M86.8X6] Order(s):US EXTREMITY MASS/FLUID COLLECTION LT [[id number]] Order #: [id number] FUTURE Prescriptions as of 04/20/2017 Sig: PAROXETINE 30 MG TABLET Take 1 tablet by mouth once d* ALBUTEROL SULFATE HFA 90 MCG/* Inhale 2 Puffs as instructed * IBUPROFEN 600 MG TABLET Take 1 tablet by mouth every * SULINDAC 200 MG TABLET Take 200 mg by mouth twice da* HYDROCODONE 5 MG-ACETAMINOPHE* Take 1 tablet by mouth every * ALPRAZOLAM 1 MG TABLET 1/2 to 1 tab tid prn PRAVASTATIN 20 MG TABLET Take 1 tablet by mouth daily * METFORMIN 850 MG TABLET take 1 tablet by mouth twice * GLIMEPIRIDE 1 MG TABLET Take 0.5 tablets by mouth twi* BLOOD SUGAR DIAGNOSTIC STRIPS Test twice daily COMPOUNDED PRESCRIPTION powerstep orthotics Dx: post* CYCLOBENZAPRINE 10 MG TABLET Take 10 mg by mouth once clovis* POLYETHYLENE GLYCOL 3350 17 G* Take 17 g by mouth once daily* BUDESONIDE 180 MCG/ACTUATION * Inhale 2 Puffs as instructed * CHOLECALCIFEROL (VITAMIN D3) * Take 1 capsule by mouth once * CALCIUM CARBONATE 600 MG CALC* Take 1 tablet by mouth once d* BLOOD SUGAR DIAGNOSTIC STRIPS Use for blood sugar testing o* LANCETS Test blood sugar once daily. CODEINE 10 MG-GUAIFENESIN 100* Take 5-10 mL by mouth four ti* CLINDAMYCIN HCL 300 MG CAPSULE Take 1 capsule by mouth three* TRAMADOL 50 MG TABLET Take 1 tablet by mouth every * Problem List As Of Date 04/20/2017 Noted Resolved Well controlled type 2 diabetes mellitus with n*INVALID FOR* More... Hyperlipidemia with target LDL less than 70 [E7*INVALID FOR* Chronic low back pain [M54.5, G89.29] INVALID FOR* Depression with anxiety [F41.8] INVALID FOR* More... Fibromyalgia [M79.7] INVALID FOR* Osteoporosis [M81.0] INVALID FOR* More... Tobacco abuse [Z72.0] INVALID FOR* Pain in limb [M79.609] INVALID FOR* Atrophic vaginitis [N95.2] INVALID FOR* Hallux valgus (acquired) [M20.10] INVALID FOR* Suture reaction [T81.89XA] INVALID FOR*04/08/2015 Dyspareunia [EJQ2339] INVALID FOR* Vitamin D deficiency [E55.9] INVALID FOR* Degenerative disc disease [BGO5492] INVALID FOR* Scoliosis [M41.9] INVALID FOR* Lumbar radiculopathy [M54.16] INVALID FOR* Lumbar canal stenosis [M48.061] INVALID FOR* Encounter Status:Closed by JACKELINE VARGAS DPM on 04/22/17 CBC AND DIFFERENTIAL Collected: 04/20/2017 Status: F Source: [place] 2:38 PM [facility] TYPE CODE TESTS RESULT OUT OF REFERENCE UNITS RANGE LAB WBC 3.70-11.00 k/uL WBC 7.92 LAB RBC 3.90-5.20 m/uL Low RBC 3.84 LAB HGB 11.5-15.5 g/dL Low Hemoglobin 10.9 LAB HCT 36.0-46.0 % Low Hematocrit 35.6 LAB MCV 80.0-100.0 fL MCV 92.7 LAB MCH 26.0-34.0 pG MCH 28.4 LAB MCHC 30.5-36.0 g/dL MCHC 30.6 LAB RDWCV 11.5-15.0 % RDW-CV 14.4 LAB PLTCT 150-400 k/uL Platelet Count 202 LAB MPV 9.0-12.7 fL MPV 12.4 LAB ANEUT % Neut% 56.8 LAB AANEUT 1.45-7.50 k/uL Abs Neut 4.48 LAB ALYMP % Lymph% 33.0 LAB AALYMP 1.00-4.00 k/uL Abs Lymph 2.61 LAB AMONO % [place]% 7.4 LAB AAMONO <0.87 k/uL Abs [place] 0.59 LAB AEOS % Eosin% 2.3 LAB AAEOS <0.46 k/uL Abs Eosin 0.18 LAB ABASO % Baso% 0.5 LAB AABASO <0.11 k/uL Abs Baso 0.04 LAB AUNRBC 0 /100 WBC NRBCs 0.0 LAB ABNRBC <0.01 k/uL Absolute nRBC <0.01 LAB DTYP DTYPE Auto Diff Performed By: #### CBCDIF, WSR, CRP, VITD #### [facility] [employer] [address] [place], [place] [address] SED RATE WESTERGREN Collected: 04/20/2017 Status: F Source: [place] 2:38 PM [facility] REPOSITORY TYPE CODE TESTS RESULT OUT OF REFERENCE UNITS RANGE LAB WSR 0-20 mm/hr Sed Rate Westergren 8 Performed By: #### CBCDIF, WSR, CRP, VITD #### [facility] [employer] [address], [place] [address] C-REACTIVE PROTEIN Collected: 04/20/2017 Status: F Source: [place] 2:38 PM [facility] REPOSITORY TYPE CODE TESTS RESULT OUT OF REFERENCE UNITS RANGE LAB CRP <0.9 mg/dL C-Reactive 0.3 Protein Performed By: #### CBCDIF, WSR, CRP, VITD #### [facility] [employer] [address], [place] [address] VITAMIN D 25 HYDROXY Collected: 04/20/2017 Status: F Source: [place] 2:38 PM [facility] REPOSITORY TYPE CODE TESTS RESULT OUT OF REFERENCE UNITS RANGE LAB VITD 31.0-80.0 ng/mL Low Vitamin D 25 30.5 Hydroxy Result Comment: Classification of 25 [place] Vitamin D status: Insufficiency/Moderate Deficiency: < or = 30 ng/mL Sufficiency/Optimal Levels: 31 to 80 ng/mL Toxicity: > 100 ng/mL Test performed by chemiluminescent immunoassay. Performed By: #### CBCDIF, WSR, CRP, VITD #### [facility] [employer] [address], [place] [address] XR ANKLE 3V AP/LAT/OBL Observed: 04/20/2017 Status: F Source: [facility] 2:31 PM [facility] REPOSITORY * * *Final Report* * * DATE OF EXAM: Apr 20 2017 2:31PM WRX [id number] - XR ANKLE 3V AP/LAT/OBL LT / PROCEDURE REASON: Other specified postprocedural states * * * * Physician Interpretation * * * * EXAM: XR ANKLE 3V AP/LAT/OBL LT HISTORY: Other specified postprocedural states . VIEWS: Weightbearing AP, oblique and lateral left ankle. COMPARISON: 03/30/2017. FINDINGS: Debridement and methylmethacrylate at the outer distal left fibular metaphysis, stable. No acute fracture or bone destruction. Relatively preserved tibiotalar and subtalar joint spaces. No joint effusion. IMPRESSION: Stable features. 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 REPOSITORY HNO ID: [id number] Author: Miriam Almanzar) Carol Ann Hoskins Service: (none) Author Type: Insurance Claims Clerk Type: Progress Notes Filed: 04/20/2017 2:16 PM Note Text: Radiology Service Progress Note PATIENT NAME: Yamilex Mercado DATE OF SERVICE: April 20, 2017 TIME: 2:16 PM PATIENT IDENTITY VERIFICATION COMPLETED USING TWO (2) METHODS: Patient confirmed name verbally and Date of . PATIENT GENDER DATA: Female. status: : No status: NO. PATIENT RELEVANT IMPLANT DATA REVIEWED: Not Applicable RADIOLOGY DEPARTMENT: General X-ray: Exam(s) Completed: Lower Extremity X-Ray(s): Ankle, Left and Wt. Bearing: PERIPHERAL IV DATA: Not applicable SIGNED BY: RT Shaina April 20, 2017 2:16 PM ALLERGIES ALLERGIES DATE TYPE / NAME / CODE REACTION SEVERITY SOURCE CODE 03/12/2018 Drug moxifloxacin Other Unknown [place] Allergy/41 HCl/[id number](RXNORM [facility] [id number]) Repository 03/12/2018 Drug Penicillins/[id number] Nausea Unknown [place] Allergy/41 6(RXNORM) [facility] [id number]([facility]) Repository 03/12/2018 Drug prednisone/[id number] Other Unknown [place] Allergy/41 (RXNORM) [facility] [id number]([facility]) Repository 03/12/2018 Drug doxycycline/[id number] Nausea Unknown [place] Allergy/41 8(RXNORM) Community 1882258( [facility]) Repository 03/12/2018 Drug cefuroxime/[id number] Other Unknown [place] Allergy/41 (RXNORM) Community 0430050( Hospital [facility]) Repository 03/05/2017 DRUG/77081 SULFAMETHOXAZOLE-TRIM Vomiting [facility] 1003(SNOME ETHOPRIM [address] [place] D [address]) Repository 12/12/2013 Drug CORTICOSTEROIDS OTHER: SEE C [facility] Class/4195 (GLUCOCORTICOIDS) [place] [address](SNOM Repository ED CT) 09/21/2010 DRUG MOXIFLOXACIN HCL Mental Chg [address] [id number]( Repository OMED CT) 12/17/2006 DRUG AMPICILLIN GI UPSET [address] [id number]( Repository OMED CT) 12/17/2006 DRUG DOXYCYCLINE GI UPSET [address] [id number]( Repository OMED CT) ENCOUNTERS ENCOUNTERS ADMIT/DISCHARGE ACCOUNT ADMITTING ENCOUNTER LOCATION SOURCE NUMBER CLASS 04/01/2018/04/02/19 [id number] Ambulatory [address] [place] Repository 03/12/2018/03/12/20 [id number] Emergency [address] ing:ED Repository 03/11/2018/03/12/20 [id number] Ambulatory [address] Repository 02/27/2018/02/29/20 [id number] Ambulatory [address] Repository 02/11/2018/02/12/20 [id number] Ambulatory [address] ing:SDCRoom: Repository AC19 02/05/2018 [id number] Ambulatory BMSBuilding:W [facility] Repository 01/18/2018 [id number] Ambulatory [facility] ing:LABSPEC Repository 01/15/2018 [id number] Ambulatory [facility] ing:CT Repository 01/09/2018/01/10/20 [id number] Ambulatory [address] Repository 01/07/2018/01/08/20 [id number] [facility] [place] Repository 01/07/2018/01/23/20 [id number] [facility] [place] Repository 12/20/2017/12/25/19 [id number] [facility] [place] Repository 12/11/2017/12/12/19 [id number] [facility] [place] Repository 12/10/2017/12/11/19 [id number] [facility] [place] Repository 12/08/2017/12/09/19 [id number] [facility] [place] [facility] [place] Repository 12/07/2017/12/08/19 [id number] [facility] [place] Repository 12/07/2017 [id number] Ambulatory [facility] [place] Repository 12/07/2017/12/12/19 [id number] Ambulatory [place] [facility] [place] Repository 11/23/2017/11/24/19 [id number] Ambulatory [place] [facility] [place] Repository 11/23/2017/11/24/19 [id number] Ambulatory [place] [facility] [place] Repository 10/24/2017/10/25/19 [id number] Emergency [address] ing:ED Repository 10/10/2017/10/11/19 [id number] Ambulatory [place] [facility] [place] Repository 10/02/2017/10/04/19 [id number] Emergency [address] ing:ED Repository 10/02/2017 [id number] Ambulatory [facility] ing:[facility]SPEC Repository 09/28/2017/10/02/19 [id number] Ambulatory [place] [facility] [place] Repository 09/25/2017/09/26/19 [id number] Ambulatory [place] [facility] [place] Repository 09/10/2017/09/12/19 [id number] Ambulatory [place] [facility] [place] Repository 09/05/2017/09/06/19 [id number] Ambulatory [place] [facility] [place] Repository 08/22/2017/08/23/19 [id number] Ambulatory [place] [facility] [place] Repository 08/22/2017/08/23/19 [id number] Ambulatory [place] [facility] [place] Repository 08/22/2017/08/24/19 [id number] [facility] [place] Repository 08/13/2017/08/15/19 [id number] [facility] [place] Repository 06/19/2017/06/20/19 [id number] [facility] [place] Repository 06/19/2017/06/21/19 [id number] [facility] [place] Repository 06/05/2017/06/06/19 [id number] [facility] [place] Repository 06/05/2017/06/06/19 [id number] [facility] [place] Repository 06/05/2017/06/08/19 [id number] [facility] [place] Repository 05/23/2017/05/25/19 [id number] [facility] [place] Repository 05/01/2017/05/01/19 [id number] [facility] [place] Repository 04/27/2017 [id number] Ambulatory Deanne Deanne [facility] ing: Repository 04/20/2017/09/08/19 [id number] [facility] [place] Repository 04/20/2017/04/20/19 [id number] [facility] [place] Repository 04/20/2017/04/20/19 [id number] Ambulatory [place] [facility] [place] Rep[place] PAYERS PAYERS ENCOUNTER GUARANTOR PAYER SUBSCRIBER SOURCE 03/12/2018 YAMILEX L Primary YAMILEX L Deanne [id number] Insurance:MYCARE CRS BRAKEDOB[place] [facility] [place] [facility] [id number] Number: Repository [phone]: [phone] [id number] [phone] () Date:[id number] CLAIMS DEPTPO [address] [place] [id number]: 03/12/2018 Secondary NOT GIVENUNK [place] Insurance:SELF PAY [facility] Number: Effective Repository Date:2018-03-12 02/11/2018 YAMILEX L Primary YAMILEX L [place] [id number] Insurance:[facility] CRS BRAKEDOB: [facility] [place] [facility] [id number] Number: Repository [address]Ubg: 234 [id number] [phone] (HP) Date:[id number] CLAIMS [address]PTPO [address], [place] [address]QQ: 02/11/2018 Secondary NOT GIVENUNK [place]anne Insurance:SELF PAY [facility] Number: Effective Repository Date:2018-01-18 02/05/2018 YAMILEX L Primary YAMILEX L [place] [id number] Insurance:MYCARE CRSC BRAKEDOB: Community [place] [facility] [id number] Number: Repository [address]Unn: 234 [id number] [phone] (HP) Date:1624-11-54KLIM CLAIMS DEPTPO [address] [place] [phone]: 02/05/2018 Secondary NOT GIVENUNK Deanne Insurance:SELF PAY [facility] Number: Effective Repository Date:2018-02-05 01/18/2018 YAMILEX L Primary YAMILEX L [place] [id number] Insurance:MYCARE CRSC BRAKEDOB: Community [place] [facility] [id number] Number: Repository [address]Aja: 234 [id number] [phone] (HP) Date:5747-11-05LXUQ CLAIMS [address], [place] [address]NP: 01/18/2018 Secondary NOT GIVENUNK [place] Insurance:SELF PAY [facility] Number: Effective Repository Date:2018-01-18 01/15/2018 YAMILEX L Primary YAMILEX L [place]anne [id number] Insurance:MYCARE CRSC BRAKEDOB: Community [place] [facility] [id number] Number: Repository [address]Khm: [phone] [id number] [phone] (HP) Date:[id number] CLAIMS [address]PT[address], [place] [address]KQ: 01/15/2018 Secondary NOT GIVENUNK [place]anne Insurance:SELF PAY [facility] Number: Effective Repository Date:2018-01-04 10/24/2017 YAMILEX L Primary YAMILEX L Deanne [id number] Insurance:MEDICARE BRAKEDOB: [facility] [place] [place] [facility] [id number] Number: Repository [address]Ppp: [phone] [id number] [phone] () Date:2017-10-24 10/24/2017 Secondary YAMILEX L [place] Insurance:MEDICAIDPol BRAKEDOB: [facility] icy Number: [id number] Hospital [id number] Repository Date:2017-10-24 10/24/2017 Tertiary NOT GIVENUNK [place]anne Insurance:SELF PAY [facility] Number: Effective Repository Date:2017-10-24 10/02/2017 YAMILEX L Primary YAMILEX L [place]anne [id number] Insurance:MEDICARE BRAKEDOB: [facility] [place] [place] [facility] [id number] Number: Repository [id number]: [phone] [id number] [phone] () Date:2017-10-02 10/02/2017 Secondary YAMILEX L [place] Insurance:MEDICAIDPol BRAKEDOB: [facility] icy Number: [id number] Hospital [id number] Repository Date:2017-10-02 10/02/2017 Tertiary NOT GIVENUNK [place] Insurance:SELF PAY [facility] Number: Effective Repository Date:2017-10-02 10/02/2017 YAMILEX L Primary YAMILEX L [place] [id number] Insurance:MEDICARE BRAKEDOB: [facility] [place] [facility] [id number] [place] Number: Repository [id number]: [phone] [id number] [phone] () Date:2017-10-02 10/02/2017 Secondary YAMILEX L [place]anne Insurance:MEDICAIDPol BRAKEDOB: [facility] icy Number: [id number] Hospital [id number] Repository Date:2017-10-02 10/02/2017 Tertiary NOT GIVENUNK [place] Insurance:SELF PAY [facility] Number: Effective Repository Date:2017-10-02 04/27/2017 Yamilex L Primary Yamilex L [place] [id number] Insurance:MEDICARE BrakeDOB: [facility] PART A [facility] [id number] Number: Repository [id number]: [phone] [id number] [phone] () Date:2017-04-20 04/27/2017 Secondary Yamilex L [place] Insurance:MEDICAIDPol BrakeDOB: [facility] icy Number: [id number] Hospital [id number] Repository Date:2017-04-20 04/27/2017 Tertiary NOT GIVENUNK [place] Insurance:SELF PAY [facility] Number: Effective Repository Date:2017-04-20
== END 2018-03-12 19:32 | disposition home or self-care (01) ==
LOC: ED 17:07
PROVIDERS: Emergency Provider Emergency Medicine; Family Provider Physician Assistant; PCP Family Medicine
DX: F41.9 Anxiety disorder, unspecified (principal); R11.0 Nausea
CPT/HCPCS: 80048; 85025; 93005; 96374; 99284; A4216

== ENCOUNTER 2018-07-19 11:36 | Emergency (ER) | payer MEDICARE, SELFPAY ==
[2018-07-19 11:38] VITALS: BP 107/70; PULSE 67; RESP 14; TEMP 36.5; O2SAT 98; BMI 27.6
[2018-07-19 11:52] VITALS: BP 119/74; PULSE 62; RESP 12; O2SAT 99
[2018-07-19] MEDS: Ondansetron ODT 4 MG Tablet PO (12:44)
[2018-07-19 14:49] VITALS: BP 116/74; PULSE 63; RESP 17
--- NOTE | 2018-07-19 15:12 | ED.VIS.GEN ---
History of Present Illness Chief Complaint: Weakness Informant: Patient Onset: Today - Acute dizziness this a.m. upon awakening, Days - Generalized weakness for the past several days Context: Sudden Onset - With regards to vertigo Timing: Intermittent Quality: Spinning Location: Head Current Severity: - - Resolved Maximum Severity: Moderate - Change in position or head movement Worsened by: Change in position or head movement Relieved by: Remaining still and closing eyes Associated Symptoms: Nausea Narrative: Patient presents with generalized weakness for the past several days. This morning upon awakening chief complaint of dizziness which he describes a spinning sensation. Symptoms worse with head movement and change in position. Symptoms improved with closing her eyes and remaining still. He denied double vision, blurred vision or loss of vision. She did report nausea. She denied vomiting. She denies history of vertigo. She denies hematemesis, melena hematochezia. She denies cardiac or respiratory symptoms. She denies dysuria, frequency, urgency or hematuria. Triage document she believes she has some kind of infection. Prior similar symptoms: No Recent Illness/Hospitalization: No - Past Medical History (1) Diabetes Status: Chronic (2) Fibromyalgia Status: Chronic (3) Hyperlipidemia Status: Chronic Past Medical History - Allergies and Home Meds Allergies/Adverse Reactions: Allergies moxifloxacin HCl [From Avelox] Allergy (Verified 07/19/18 11:38) Other Penicillins Allergy (Verified 07/19/18 11:38) Nausea cefuroxime [From Ceftin] Adverse Reaction (Verified 07/19/18 11:38) Other doxycycline Adverse Reaction (Verified 07/19/18 11:38) Nausea prednisone Adverse Reaction (Verified 07/19/18 11:38) Other MAKES ME FEEL WIERD AND i NEVER SHUT UP sulfamethoxazole [From Bactrim] Adverse Reaction (Verified 07/19/18 12:44) Vomiting trimethoprim [From Bactrim] Adverse Reaction (Verified 07/19/18 12:44) Vomiting Primary Care Physician: Too Jain MD [Primary Care Provider] - Prior records reviewed: Yes Surgical History: noncontributory Lives: Alone Smoking Status: Current every day smoker Alcohol: None Drugs: None - Family History Maternal Family History: Reports: No pertinent history Paternal Family History: Reports: No pertinent history Review of Systems General: Denies: Chills, Fever, Malaise, Sweats, Weight loss Eyes: Denies: Visual changes - bilaterally, Blurred Vision - bilaterally, Diplopia ENT: Denies: Bilateral ear pain, Rhinorrhea, Sore throat Cardiovascular: Denies: Chest pain, Palpitations, Heart racing Respiratory: Denies: Dyspnea, Cough, Dyspnea on exertion Gastrointestinal: Reports: Nausea. Denies: Abdominal pain, Vomiting, Diarrhea, Melena, Hematochezia Genitourinary: Denies: Dysuria, Hematuria, Frequency Musculoskeletal: Denies: Myalgias, Arthralgias, Neck pain, Back pain, Extremity Pain Neurological: Reports: Weakness. Denies: Headache, Parasthesia, Numbness Psych: Reports: Depression Endocrine: Denies: Polyuria Hematologic: Denies: Easy bruising, Easy bleeding Physical Exam Vital Signs/Narrative: Vital Signs Temp Pulse Resp BP Pulse Ox 07/19/18 14:49 63 17 116/74 07/19/18 11:52 62 12 119/74 99 07/19/18 11:38 97.7 F L 67 14 107/70 98 Inital Vital Signs reviewed: Yes General: Well nourished, Well developed, No Acute Distress Head: Normocephalic, Atraumatic Eyes: Perrl, EOMI, Pale conjunctiva, Scleral icterus ENT: Moist mucous membranes, No rhinorrhea, TM's clear Neck: Supple, Nontender, No lymphadenopathy, No JVD Cardiovascular: Regular rate, Regular rhythm, No murmurs, Normal S1, Normal S2 Respiratory: No distress, CTA bilaterally, Chest nontender Abdomen: Soft, Nontender, Nondistended, Normal bowel sounds, No masses Back: Nontender, Normal Inspection. Negative for: CVA tenderness Extremities: Nontender, No edema Skin: Normal color, No rash. Negative for: Cyanosis, No Trauma Neurological: Alert, Oriented x3, Cranial nerves II-XII grossly intact, Normal Strength, Normal Sensation, Normal DTR, Normal Gait, - - The [place]-Hallpike maneuver was positive. Symptoms are worse when head was turned to the right. Planes of significant nausea without vomiting. Psychological: Normal affect, Normal Mood Diagnostic/Tx/Re-eval - Medical Decision Making With a positive Mindy-Hallpike maneuver paroxysmal symptoms and no ocular symptoms and a normal neurologic exam patient was treated with Zofran. Went back to evaluate patient twice she was asleep. Did not awaken her. Upon awakening she was wondering what happened. She reports that her vertigo has resolved. Since her vertigo has resolved we will not perform Kvng maneuver. Will discharge to home with appropriate home-going instructions. ED Disposition - Plan for ED Patient: Disposition: Home or Assisted Living Diagnosis: Benign paroxysmal positional vertigo Instructions: ED BPV Vertigo Referrals: Too Jain MD [Primary Care Provider] - As Needed
--- NOTE | 2018-07-19 15:12 | ED.RN ---
PT AWARE CHART UP FOR, RE-EVAL, PHYSICIAN MADE AWARE THAT PATIENT'S SYMPTOMS HAVE RESOLVED.
--- NOTE | 2018-07-19 15:28 | ED.DEP ---
ED Disposition - Plan for ED Patient: Disposition: Home or Assisted Living Diagnosis: Benign paroxysmal positional vertigo, Sinusitis chronic, frontal Instructions: ED BPV Vertigo Prescriptions: Amox/Clavulanate Tablet [Augmentin Tablet] 875 mg PO Q12H #20 tablet Referrals: Too Jain MD [Primary Care Provider] - As Needed Additional Instructions: Your prescription was electronically transmitted to designated pharmacy of choice.
--- NOTE | 2018-07-19 15:34 | ED.RN ---
DISCHARGE INSTRUCTIONS GIVEN TO AND REVIEWED WITH PATIENT, PATIENT DENIES QUESTIONS OR CONCERNS AND VOICES UNDERSTANDING OF DISCHARGE INSTRUCTIONS. PT AMBULATES OUT OF ROOM WITHOUT DIFFICULTY.
== END 2018-07-19 15:35 | disposition home or self-care (01) ==
PROVIDERS: Emergency Provider Emergency Medicine; Family Provider Physician Assistant; PCP Family Medicine
DX: H81.10 Benign paroxysmal vertigo, unspecified ear (principal); F17.200 Nicotine dependence, unspecified, uncomplicated; E78.5 Hyperlipidemia, unspecified; E11.9 Type 2 diabetes mellitus without complications; M79.7 Fibromyalgia
CPT/HCPCS: 99283

== ENCOUNTER 2019-02-22 15:54 | Emergency (ER) | payer MEDICARE, SELFPAY ==
[2019-02-22 15:56] VITALS: BP 138/78; PULSE 72; RESP 18; TEMP 37.1; O2SAT 97; BMI 27.0
[2019-02-22 16:15] VITALS: RESP 16
--- NOTE | 2019-02-22 16:19 | ED.DCSUM_ITS ---
- ER Visit Summary Date of Service: 02/22/19 Chief Complaint: [Left ear pain and left facial pressure] History of Present Illness: The patient is a 63 F [presents to the emergency department with a vague complaint of a lump in the left side of her submandibular region that she noticed last evening. Patient states that she pressed on it and she felt a pop and a release of pressure and the lump went away. Patient this morning was brushing her teeth and she states that she was spitting up blood but did not feel like her teeth were bleeding she is not sure where the bleeding was coming from. Patient continues to complain of some pressure in her left ear and also redness and swelling to the area around her left upper molar that was extracted several weeks ago. Denies any fevers. Patient also states that she saw her ear nose and throat physician last week who ordered a CAT scan of her neck because she has a swollen right-sided lymph node that has not gone away after using antibiotic's.] Physical Examination: [HEENT-PERRLA, EOMI. Cranial nerves II through XII grossly intact. TMs clear. Mucous membranes moist. Patient has a right submandibular lymph node slightly tender to palpation measures about 1.5 cm x 1 cm. No adenopathy noted to the left side of the submandibular region. No tenderness over the Sincere's duct or submandibular duct. Patient does have some faint erythema over the left upper extraction site gingiva. There is no facial erythema or cellulitis. There is no ecchymosis or bruising. Cardiovascular-regular rate and rhythm without murmur or ectopy Lungs-clear to auscultation, chest wall stable without crepitus or subcu emphysema Abdomen-normoactive bowel sounds, soft, nontender, no rebound or rigidity, no peritoneal signs. Extremities-intact ?4, normal range of motion, normal pulses, atraumatic] Test Results: [None indicated] Emergency Department Course and Treatment: [She will in the mycin. Patient advised to follow-up with her ENT physician next week. It is unclear etiology of her symptoms. Is possible she may have had a partially obstructed salivary duct. Patient advised to use sour candy or lemon drops.] Treatment Plan: [Follow-up with ear nose and throat physician and treated with clindamycin] Disposition: [Discharged home in stable condition] Impression: [Left ear pain and left facial pain-etiology uncertain] This note was generated with SnipSnap dictation software. It may contain incorrect words, spelling, and punctuation that were not noted in review of the chart prior to signing ED Disposition - Plan for ED Patient: Referrals: Too Jain MD [Primary Care Provider] -
--- NOTE | 2019-02-22 16:22 | ED.DEP ---
ED Disposition - Plan for ED Patient: Instructions: EARACHE w/o Infection (Adult), Dental Pain Prescriptions: Clindamycin HCl [Cleocin] 300 mg PO Q6H #40 cap Prescription Printed Referrals: Too Jain MD [Primary Care Provider] - Carlitos Wood MD [STAFF PHYSICIAN] - 3-5 Days
[2019-02-22 16:41] VITALS: RESP 16
== END 2019-02-22 16:38 | disposition home or self-care (01) ==
LOC: ED 16:25
PROVIDERS: Emergency Provider Emergency Medicine; Family Provider Family Medicine; PCP Family Medicine
DX: H92.02 Otalgia, left ear (principal); R51 Headache; E11.9 Type 2 diabetes mellitus without complications; Z72.0 Tobacco use
CPT/HCPCS: 99282

== ENCOUNTER → 2019-02-28 16:42 | Outpatient (CLI) | payer MEDICARE, SELFPAY ==
[2019-02-22 15:56] VITALS: BMI 27.0
--- NOTE | 2019-02-28 16:46 | CT_ITS ---
STUDY: CT SOFT TISSUE NECK WITH CONTRAST REASON FOR EXAM: Female, 63 years old. Right neck mass. RADIATION DOSAGE (If Supplied By Facility): CTDIvol = ( 15.22 ) mGy, DLP = ( 410.52 ) mGycm TECHNIQUE: The patient was scanned in a multi-detector CT scanner. High resolution transaxial imaging was performed following intravenous administration of 75 mL of Isovue-370. Sagittal and coronal images were reconstructed. Individualized dose optimization techniques were used for this CT. COMPARISON: None. FINDINGS: 1.8 x 1.0 x 0.8 cm enhancing elongated nodule in the posterior aspect of the right parotid gland. Enhancing lymph node versus benign mixed tumor. I favor the former. Normal left parotid gland. Normal bilateral playground attendant spaces. Normal bilateral parapharyngeal spaces. Normal bilateral carotid spaces. Normal bilateral sublingual and submandibular glands and spaces. Normal visualized nasopharynx. Normal retropharyngeal space. Normal perivertebral space. Normal visualized bilateral faucial tonsils. The visualized tongue, tongue base and oropharynx are normal. The visualized cervical lymph nodes (levels I-) are within normal size limits, and maintain normal morphology. There is no demonstrated solid or cystic mass lesion. There is no abnormal contrast enhancement. Normal epiglottis, bilateral vallecula and hypopharynx. The pre-epiglottic and paraglottic adipose spaces are normal. Normal visualized bilateral piriform sinuses, aryepiglottic folds, vocal cords, and arytenoid-cricoid articulations. Normal subglottic trachea. Normal bilateral lobes of the thyroid gland. Normal visualized pulmonary apices. Complete opacification of the right posterior ethmoid sinus and right sphenoid sinus with sclerotic wall thickening. This is due to chronic sinusitis. Moderate C5-C6 disc space height narrowing with small posterior marginal spurs. No acute osseous abnormality. CT/Soft Tissue Neck WITH Contrast IMPRESSION: 1.8 x 1.0 x 0.9 cm enhancing elongated nodule in the posterior aspect of the right parotid gland. Enhancing intraparotid lymph node versus benign mixed tumor. I favor the former. Follow-up will help. Electronically Signed: Oleksandr Suresh MD at 12:57 EST , Service support ,
[2019-02-28 17:00] LABS: CREATININE FINGERSTICK 1.6 mg/dL (0.55-1.02)
== END ==
PROVIDERS: Family Provider Family Medicine; PCP Family Medicine; Referring Provider Otolaryngology; Visit Provider Otolaryngology
DX: R22.1 Localized swelling, mass and lump, neck (principal)
CPT/HCPCS: 70491; Q9967

== ENCOUNTER 2020-03-31 14:30 | Outpatient (RCR) | payer MEDICARE, MEDICAID, SELFPAY ==
--- NOTE | 2020-02-23 15:35 | HP.OTEVAL ---
Patient's Visit Information COLE MERCADO is a 64 year old F, referred to Occupational Therapy by SUZANNE RICHARDS, with a diagnosis of S/P right CMC with LRT1. Date of Evaluation: 02/23/20 Occupational Therapist: Pamella Cortes - Subjective Pt presents s/p R CMC with LRT1 on 01/23/2020; cast was removed this morning. Pt reports she lives with daughter and son in law, and grandson whom having been helping with a lot. Has an aide that comes 6x/week to help with ADL/IADL tasks. Pt reports R arm/hand is very sore and tender. - ADLs Dressing: Bra, Overhead shirt, Button shirt, Coat Comments: Difficulty with above tasks marked Fasteners: Buttons, Zippers Comments: Difficulty with above tasks marked- wears slip on shoes Comments: Uses L hand (dominant hand) Comments: Pt reports she has an aide who assists her Comments: No concerns noted per pt Comments: Pt reports no concerns Kitchen: Chop with knife, Peel fruits & vegetables, Open jars, Open bottle caps, Ziplock bags, Take dish out of oven, Load/unload panel builder, Place dish in microwave Comments: Difficulty with above tasks marked Comments: Pt reports she has an aide 6 days/week Comments: Family takes care of yard work Miscellaneous: Open doors/Including car door Comments: Pt reports grandson and son in law have modified a wallet for her to use, and her medication has been put in sorted baggies versus bottles to make it easier for her. - Pain R hand 7 Pain Intensity Range: 7 - Objective Pt overall sore and tender this date. Difficulty with moving R hand at all. Pt reports she is L hand dominant. - ROM Wrist: L 75/90, R 15/45 CMC: L 0/65, R not tested Opposition: L WNL, R not tested ROM Comments: R thumb ROM not assessed this date secondary to c/o increase pain since removal of cast- will assess at later date. - Strength Extrusion Die Template Maker: L 16#, R not tested Lateral Pinch: L 12#, R not tested Tripod Pinch: L 10#, R not tested Tip-to-Tip Pinch: L 5#, R not tested Strength Comments: R will test at later date - Sensation Sensation Comments: Reports mild numbness on R thumb but not constant - Quick DASH-Disab of Arm,Shoulder& Hand Quick DASH Score: 72.7250 - Goals Goal:: Pt will increase R superintendent stevedoring/pinch strength by 10# in order to increase IND with ADL/IADL tasks Goal:: Pt will increase R thumb ROM by 15-20 degrees in order to increase IND with ADL/IADL tasks Goal:: Pt will report pain no greater than 2/10 with use of R hand with ADL/IADL tasks Goal:: Pt will be able to fasten buttons/zippers on clothing at MOD I level with use of AE as needed to increase IND with tasks Goal:: Pt will demonstrate understanding with joint protection techniques by d/c Goal:: Pt will be able to don/doff UB clothing and undergarments at MOD I level with use of AE as needed to increase IND with tasks Goal:: Pt will demonstrate good understanding of wear schedule with R orthotic and be able to don/doff I'ly on RUE by d/c. - Rehabilitation General Assessment: Assessed ROM/MMT- see above for results. Educated on joint protection techniques and to suggested to soak hand in 2x/day for 10-15 minutes to help relieve pain with good understanding verbalized. Fitted with splint this date and educated on wear schedule and how to don/doff with good understanding verbalized. Rehabilitation Potential: Good - Anticipated Interventions A/AAROM/PROM, Strengthening, Scar Care, Massage, Modalities, Orthoses, Joint Protection/Energy Conservation, Ergonomic Education, Fine Motor Coord/Bacilio, ADL Training, Education re assistive Equipment, Education re Skin Care and Precautions, Education re Self Massage Techniques, Education re Correct Donning Tech,Care&Wearing Sched Comp Garments, Home Program - Visit Plan Frequency: 2x /Week Duration: 4-6 Weeks General Plan: Increase ROM, decrease pain and increase IND with ADL/IADL tasks TEXT: Thank you for the opportunity to evaluate your patient. For Medicare and Medicare HMO plans, please review the plan of care and approve it. It will need to be FAXED BACK to us at [phone] for Medicare purposes. Please let me know if there are questions or concerns regarding this plan of care. Physician Signature: Date:
--- NOTE | 2020-03-31 14:55 | HP.OTDCSUM_ITS ---
It has been my pleasure to treat COLE MERCADO under orders from SUZANNE RICHARDS, for the diagnosis of S/P right CMC with LRT1 for a total of 8 visit(s). Please see the following information for a summary of their discharge status. % Improvement: 80 Objective/Function: right community health program coordinator strength 15#. left community health program coordinator strength 50#. right lateral pinch 3#. left lateral pinch 10#. pt demo right MP 25. right IP 45*. right CMC 15*. pt reports IND with ADLs and IADLs- pt to cont with HEP of PRE to increase her community health program coordinator strength Patient Goals: Regain Strength, Decrease Pain, Improve Fine Motor Skills, Use Hand/Wrist/Arm Normally Again, Increase ROM, Be More Independent in ADLS, Resume Former Household Responsibilities (Cooking,Cleaning,Yard, etc.), Resume Hobbies Goal:: Pt will increase R community health program coordinator/pinch strength by 10# in order to increase IND with ADL/IADL tasks Goal:: Pt will increase R thumb ROM by 15-20 degrees in order to increase IND with ADL/IADL tasks Goal:: Pt will report pain no greater than 2/10 with use of R hand with ADL/IADL tasks Goal:: Pt will be able to fasten buttons/zippers on clothing at MOD I level with use of AE as needed to increase IND with tasks Goal:: Pt will demonstrate understanding with joint protection techniques by d/c Goal:: Pt will be able to don/doff UB clothing and undergarments at MOD I level with use of AE as needed to increase IND with tasks Goal:: Pt will demonstrate good understanding of wear schedule with R orthotic and be able to don/doff I'ly on RUE by d/c. Plan: D/C with HEP Discharge Comments: pt was seen for 9 OT visits following a right CMC arthroplasty- pt reports she is IND. with bathing/dressing light cooking and cleaning taks. pt states some pain but is getting better each day. pt has met goals in OT and therapist advised pt to cont with community health program coordinator strengthening and joint protection tono. pt demo understanding. If there are questions or concerns regarding this patient's occupational therapy, please fell free to call me at [phone]. Thank you for the referral of this patient. Sincerely, Deloris Hamlin, OTR/L, CHT
== END 2020-03-31 19:00 | disposition home or self-care (01) ==
LOC: OT 14:30
PROVIDERS: PCP Family Medicine
DX: M18.11 Unilateral primary osteoarthritis of first carpometacarpal joint, right hand (principal)
CPT/HCPCS: 97035; 97110; 97140; 97166; 97530

== ENCOUNTER → 2020-12-09 16:45 | Outpatient (CLI) | payer MEDICARE, MEDICAID, SELFPAY ==
--- NOTE | 2020-12-09 17:13 | MRI_ITS ---
STUDY: MRI LUMBAR SPINE WITHOUT CONTRAST REASON FOR EXAM: Female, 65 years old. DEGENERATIVE DISC DISEASE TECHNIQUE: Standardized fat and water weighted pulse sequences were obtained in the sagittal and axial planes. COMPARISON: 08/07/2013 FINDINGS: T12-L1: Normal endplates. Normal disc height, hydration and morphology. Normal bilateral facet joints. Normal central canal and bilateral lateral recesses. Normal bilateral intervertebral neural foramina. Normal lumbar lordosis. Moderate levoscoliosis centered at L1. Normal conus medullaris that terminates at the L1/L2. L1-2: Normal endplates. Normal disc height, hydration and morphology. Normal bilateral facet joints. Normal central canal and bilateral lateral recesses. Normal bilateral intervertebral neural foramina. L2-3: Moderate facet hypertrophy and mild left facet hypertrophy with moderate ligament flavum hypertrophy. Interval development of a mild bilobed disc protrusion which produces mild spinal stenosis and mild bilateral neural foraminal stenosis. L3-4: Mild bilateral facet hypertrophy and moderately well inflated hypertrophy. No change in the mild broad disc protrusion which produces mild spinal stenosis, mild left neural foraminal stenosis and moderate right neural foraminal stenosis with abutment of the right L3 nerve root laterally. L4-5: Moderate left facet hypertrophy with mild right facet hypertrophy with moderate ligament flavum hypertrophy. No change in a moderate broad disc protrusion asymmetric to the left which produces mild spinal stenosis, mild right lateral recess stenosis and mild right neural foraminal stenosis, severe left lateral recess stenosis with effacement of the left L5 nerve root and severe left neural foraminal stenosis with effacement of the left L4 nerve root. L5-S1: Moderate left facet hypertrophy and mild ligament flavum hypertrophy. No disc protrusion, spinal stenosis, or neural foraminal stenosis. Normal visualized sacral ala. Normal visualized paraspinous soft tissue structures. MRI/Spine Lumbar (Routine) IMPRESSION: Moderate levoscoliosis and worsening degenerative disc disease as described above. Electronically Signed: Michael Pathak MD at 15:21 EDT Tel , Service support ,
== END ==
PROVIDERS: PCP Physician Assistant; Referring Provider Nurse Practitioner Family; Visit Provider Nurse Practitioner Family
DX: M51.36 Other intervertebral disc degeneration, lumbar region (principal); M51.26 Other intervertebral disc displacement, lumbar region; M48.061 Spinal stenosis, lumbar region without neurogenic claudication
CPT/HCPCS: 72148

== ENCOUNTER 2021-01-11 13:21 | Emergency (ER) | payer MEDICARE, MEDICAID, SELFPAY ==
[2021-01-11 13:24] VITALS: BP 125/111; PULSE 81; RESP 20; TEMP 37.1; O2SAT 97; BMI 27.4
--- NOTE | 2021-01-11 13:27 | RAD_ITS ---
STUDY: X-RAY - RIGHT WRIST REASON FOR EXAM: Female, 65 years old. Deformity following a fall. TECHNIQUE: 3 view(s) of the wrist were obtained. COMPARISON: None. FINDINGS: Nondisplaced transverse fracture of the distal radial metaphysis. Normal radiocarpal articulation. Normal distal radioulnar articulation. Prior resection of the trapezium. Normal carpal articulations. Normal carpometacarpal articulation of the thumb. Normal second through fifth carpometacarpal articulations. Normal visualized metacarpal bones. Soft tissue swelling. RAD/Wrist min 3 Views IMPRESSION: Nondisplaced fracture of the distal radial metaphysis. Previous resection of the trapezium. Soft tissue swelling. Electronically Signed: Temo Dukes MD at 14:02 EDT , Service support ,
--- NOTE | 2021-01-11 13:33 | CT_ITS ---
STUDY: CT BRAIN WITHOUT CONTRAST REASON FOR EXAM: Female, 65 years old. Fall-head injury RADIATION DOSAGE (If Supplied By Facility): CTDIvol = ( 44.99 ) mGy, DLP = ( 779.24 ) mGycm TECHNIQUE: Transaxial CT imaging of the brain was performed without administration of intravenous contrast material. Individualized dose optimization techniques were used for this CT. COMPARISON: Comparison is made with prior examination dated 10/24/2017. FINDINGS: Normal soft tissue structures. Normal calvarium. There is mild cerebral atrophy with widening of the extra-axial spaces and ventricular dilatation. Normal white matter tracts of the cerebral hemispheres. Normal basal ganglia and thalami. Normal brainstem. Normal cerebellum. There is no intracranial hemorrhage. There are no findings of an acute ischemic infarction. Atherosclerotic calcification of the cavernous portions of the internal carotid arteries. Normal visualized paranasal sinuses. CT/Brain/Head without Contrast IMPRESSION: Chronic involutional changes of the brain. Electronically Signed: Temo Dukes MD at 14:07 EDT , Service support ,
--- NOTE | 2021-01-11 13:33 | CT_ITS ---
STUDY: CT CERVICAL SPINE WITHOUT CONTRAST REASON FOR EXAM: Female, 65 years old. Fall RADIATION DOSAGE (If Supplied By Facility): CTDIvol = ( 17.88 ) mGy, DLP = ( 407.38 ) mGycm TECHNIQUE: High resolution transaxial imaging was performed without contrast material. Sagittal and coronal images were reconstructed. Individualized dose optimization techniques were used for this CT. COMPARISON: None FINDINGS: Normal craniovertebral junction. There are degenerative changes of the anterior atlantoaxial articulation. Normal odontoid process. Normal cervical lordosis. Normal vertebral bodies and posterior osseous elements. C2-3: Facet joint osteoarthritis and hypertrophy worse on the right side. C3-4: Facet joint osteoarthritis and hypertrophy more prominent on the right side. No significant stenosis is seen. C4-5: Mild degree of this space narrowing. Mild degree of retrolisthesis of C4 on C5. Facet joint osteoarthritis. Uncovertebral arthrosis. C5-6: Moderate degree of disc space narrowing. Spondylosis. No significant stenosis seen. C6-7: Mild degree of disc space narrowing. Spondylosis. No significant stenosis seen. C7-T1: Normal endplates. Normal disc height and morphology. Normal central canal and intervertebral neuroforamina. Normal visualized soft tissue structures. CT/Spine Cervical without Contras IMPRESSION: Multilevel degenerative changes, as described above. Electronically Signed: Temo Dukes MD at 14:15 EDT , Service support ,
[2021-01-11] MEDS: oxyCODONE 5 MG Tablet 10 MG PO (15:22)
--- NOTE | 2021-01-11 15:29 | EX.ED.GENINJ ---
HPI History of Present Illness Chief Complaint: Fall Informant: patient Narrative Narrative: 65-year-old female presenting to the emergency department following a fall. Patient fell down approximately 4 stairs striking her head and injuring her nondominant right wrist. No loss of consciousness. She does not take a blood thinner. She sees Dr. Barnes from orthopedics. Patient denies any chest or abdomen symptoms. No back pain change from baseline. Has a history of osteoporosis. [facility] Medical History (Updated 01/11/21 @ 15:[address] Sukhjinder Prescott DO) Diabetes Fibromyalgia Hyperlipidemia Home Medications metformin 850 mg PO BIDCM 07/31/13 [History Last Taken 10/24/17] paroxetine HCl [Paxil] 30 mg PO QHS 07/31/13 [History Last Taken 10/23/17] pravastatin 20 mg PO QHS 07/31/13 [History Last Taken 10/23/17] amoxicillin-pot clavulanate 875 mg PO Q12H #20 tablet 07/19/18 [Rx Last Taken Unknown] gabapentin [Neurontin] 300 mg PO QHS 07/19/18 [History Last Taken Unknown] ibuprofen 600 mg PO PRN PRN 07/19/18 [History Last Taken Unknown] clindamycin HCl 300 mg PO Q6H #40 cap 02/22/19 [Rx Last Taken Unknown] hydrocodone-acetaminophen 1 tab PO Q6H PRN PRN 3 Days #10 tablet 01/11/21 [Rx Last Taken Unknown] Allergy/AdvReac Type Severity Reaction Status Date / Time moxifloxacin HCl Allergy Other Verified 01/11/21 13:22 [From Avelox] Penicillins Allergy Nausea Verified 01/11/21 13:22 cefuroxime [From Ceftin] AdvReac Other Verified 01/11/21 13:22 doxycycline AdvReac Nausea Verified 01/11/21 13:22 prednisone AdvReac Other Verified 01/11/21 13:22 sulfamethoxazole AdvReac Vomiting Verified 01/11/21 13:22 [From Bactrim] trimethoprim [From Bactrim] AdvReac Vomiting Verified 01/11/21 13:22 Surgical History (Updated 01/11/21 @ 15:[address] Sukhjinder Prescott DO) H/O hand surgery Social History (Updated 01/11/21 @ 15:[address] Sukhjinder [place], DO) Smoking Status: Current every day smoker tobacco type: cigarettes substance use type: does not use ROS ROS ED Constitutional Constitutional ED: Denies chills or weight loss Eyes Eyes: Denies change in vision or diplopia ENT ENT ED: Denies ear pain, rhinorrhea or sore throat Cardiovascular Cardiovascular: Denies chest pain, orthopnea, palpitations or racing heartbeat Respiratory/Chest Respiratory/Chest: Denies cough, dyspnea or orthopnea Gastrointestinal Gastrointestinal: Denies abdominal pain, diarrhea, nausea or vomiting Genitourinary Genitourinary ED: Denies dysuria, hematuria or urinary frequency Musculoskeletal Musculoskeletal: Reports other Details: Right wrist pain ; Denies arthralgias or myalgias Integumentary Denies abscess or rash Neurologic Neurologic: Reports headache(s); Denies weakness Psychiatric Psychiatric: Denies anxiety, depression, suicidal ideation or suicidal thoughts Endocrine Endocrinology: Denies polydipsia, polyphagia or polyuria Allergic/Immunologic Allergic/Immunologic ED: Denies mouth swelling, tongue swelling or urticaria EXAM Physical Exam Const Vital Signs: 01/11/21 13:24 Temperature 98.8 F Temperature Source Temporal Pulse Rate 81 Respiratory Rate 20 H Blood Pressure 125/111 H Blood Pressure Mean 115 Pulse Ox 97 Oxygen Delivery Method Room Air Positive well nourished and well developed General Appearance ED: well developed HEENT Reports normocephalic, head/scalp atraumatic, TM's clear and moist mucous membranes atraumatic Tympanic Membrane ED: Yes TM's clear Eyes PERRL and EOMs intact bilaterally Neck full ROM, no lymphadenopathy, supple and no JVD General: Negative for tenderness Resp normal respiratory effort and clear to auscultation bilaterally Cardio regular rate, regular rhythm and no murmurs GI normal to inspection, nondistended, normoactive bowel sounds and non-tender Palpation: soft Back/Spine no CVA tenderness and normal ROM Extremity Extremity Narrative: Mild swelling to the right wrist. Limited range of motion due to pain. Appears neurovascularly intact. General Extremety ED: Yes tenderness Neuro oriented x3 and CN's II-XII intact bilaterally Sensorium / Orientation: alert Motor Exam: strength 5/5 throughout Psych mental status grossly normal Mood & Affect: Negative for depressed or tearful Skin no rashes or lesions noted and no wounds MDM MDM MDM Narrative Medical decision making narrative: CT of the brain and cervical spine showed no acute fracture or intracranial hemorrhage. My interpretation of the right wrist films is a nondisplaced fracture of the distal radius. Patient received oxycodone for pain. She was placed in AP plaster splint made by this physician. Neurovascular intact pre and post application. Patient will be discharged home with a short course of [place]. She is to follow-up with her orthopedist. Radiography Diagnostic Testing: Clinical Impression(s) from Imaging Studies Wrist X-Ray 01/11/21 13:27 IMPRESSION: Nondisplaced fracture of the distal radial metaphysis. Previous resection of the trapezium. Soft tissue swelling. Electronically Signed: Temo Dukes MD at 14:02 EDT , Service support , Brain CT 01/11/21 13:33 IMPRESSION: Chronic involutional changes of the brain. Electronically Signed: Temo Dukes MD at 14:07 EDT , Service support , Cervical Spine CT 01/11/21 13:33 IMPRESSION: Multilevel degenerative changes, as described above. Electronically Signed: Temo Dukes MD at 14:15 EDT , Service support , Discharge Plan Triage Chief Complaint: Fall ED Provider: Sukhjinder Prescott Dx/Rx/DC Orders Clinical Impression: Closed fracture of right distal radius, Head injury, Fall Instructions: Wrist Fracture Prescriptions: New hydrocodone-acetaminophen [hydrocodone-acetaminophen] 1 TABLET tablet 1 tab PO Q6H PRN PRN (Reason: Pain) 3 Days Qty: 10 RF: 0 No Action metformin 500 MG tablet 850 mg PO BIDCM RF: 0 paroxetine HCl [Paxil] 30 MG tablet 30 mg PO QHS RF: 0 pravastatin 20 MG tablet 20 mg PO QHS RF: 0 gabapentin [Neurontin] 300 MG capsule 300 mg PO QHS RF: 0 ibuprofen 600 MG tablet 600 mg PO PRN PRN (Reason: Pain) RF: 0 amoxicillin-pot clavulanate 875 MG tablet 875 mg PO Q12H Qty: 20 RF: 0 clindamycin HCl 300 MG capsule 300 mg PO Q6H Qty: 40 RF: 0 Primary Care Provider: Ashli Silva Referrals: Marcus Barnes MD [NON-STAFF] - As soon as possible Ashli Silva PA [Primary Care Provider] - Disposition Disposition: Home, Self Care
== END 2021-01-11 15:40 | disposition home or self-care (01) ==
PROVIDERS: Emergency Provider Emergency Medicine; PCP Physician Assistant
DX: S52.501A Unspecified fracture of the lower end of right radius, initial encounter for closed fracture (principal); S09.90XA Unspecified injury of head, initial encounter; F17.210 Nicotine dependence, cigarettes, uncomplicated; W10.9XXA Fall (on) (from) unspecified stairs and steps, initial encounter
CPT/HCPCS: 29125; 70450; 72125; 73110; 99284

== ENCOUNTER 2021-05-02 19:39 | Emergency (ER) | payer MEDICARE, MEDICAID, SELFPAY ==
[2021-05-02 19:40] VITALS: BP 132/79; PULSE 81; RESP 18; TEMP 35.6; O2SAT 97; BMI 26.9
--- NOTE | 2021-05-02 19:43 | RAD_ITS ---
STUDY: XR Shoulder Min 2 Views REASON FOR EXAM: Female, 65 years old. PAIN TECHNIQUE: XR Shoulder Min 2 Views COMPARISON: None. FINDINGS: Normal glenohumeral articulation. Normal acromioclavicular joint. Normal acromion. Normal humeral head and visualized proximal humerus. The soft tissue structures are unremarkable. Normal visualized pulmonary apex. RAD/Shoulder min 2 Views IMPRESSION: There are no acute findings of the shoulder. Electronically Signed: Zheng Soto MD at 20:05 EST ,
--- NOTE | 2021-05-02 21:48 | EX.ED.UPPERE ---
HPI History of Present Illness Chief Complaint: Upper Extremity Injury Informant: patient Narrative Narrative: Patient complains of pain in the right shoulder area. She states she fell back in mid December. She fell down 4 steps. She broke her right wrist. She is left-handed. The wrist was casted and healed and did not require surgery. She states she stoved the entire right arm and she has been having pain in the arm and shoulder ever since. Even when the cast came off she still having pain. She states most of her pain is in the top of the right shoulder and will shoot up toward her neck and occasionally down her arm to about the elbow. It does not go to the hand. She has not had weakness or numbness. She has an appointment to see her physician in 2 days for this. Nothing specifically makes this better or worse. No fevers or chills. No chest pain. No trouble breathing. She has a smoker and was counseled to quit. [facility] Medical History Diabetes Fibromyalgia Hyperlipidemia Home Medications metformin 850 mg PO BIDCM 07/31/13 [History Last Taken 10/24/17] paroxetine HCl [Paxil] 30 mg PO QHS 07/31/13 [History Last Taken 10/23/17] pravastatin 20 mg PO QHS 07/31/13 [History Last Taken 10/23/17] tramadol 50 mg PO Q6H PRN 2 Days #8 tab 05/02/21 [Rx Last Taken Unknown] Allergy/AdvReac Type Severity Reaction Status Date / Time moxifloxacin HCl Allergy Other Verified 05/02/21 21:17 [From Avelox] Penicillins Allergy Nausea Verified 05/02/21 21:17 cefuroxime [From Ceftin] AdvReac Other Verified 05/02/21 21:17 doxycycline AdvReac Nausea Verified 05/02/21 21:17 prednisone AdvReac Other Verified 05/02/21 21:17 sulfamethoxazole AdvReac Vomiting Verified 05/02/21 21:17 [From Bactrim] trimethoprim [From Bactrim] AdvReac Vomiting Verified 05/02/21 21:17 Surgical History H/O hand surgery Social History Smoking Status: Current every day smoker tobacco type: cigarettes substance use type: does not use ROS ROS ED Constitutional Constitutional ED: Denies chills or fever(s) Eyes Eyes: Denies blurry vision ENT ENT ED: Denies rhinorrhea or sore throat Cardiovascular Cardiovascular: Denies chest pain or palpitations Respiratory/Chest Respiratory/Chest: Denies cough or dyspnea Gastrointestinal Gastrointestinal: Denies nausea or vomiting Musculoskeletal Musculoskeletal: Reports neck pain and other Details: See history of present illness. ; Denies back pain Integumentary Denies abscess or rash Neurologic Neurologic: Reports paresthesias; Denies headache(s) or weakness Psychiatric Psychiatric: Denies depression Hematologic/Lymphatic Hematologic/Lymphatic: Denies easy bleeding or easy bruising Allergic/Immunologic Allergic/Immunologic ED: Denies mouth swelling or urticaria EXAM Physical Exam Const Vital Signs: 05/02/21 19:40 Temperature 96.0 F L Temperature Source Temporal Pulse Rate 81 Respiratory Rate 18 Blood Pressure 132/79 H Blood Pressure Mean 96 Pulse Ox 97 Oxygen Delivery Method Room Air Positive well nourished and well developed General Appearance ED: well developed and NAD; Negative for cyanotic or diaphoretic HEENT Reports moist mucous membranes Chest Wall inspection of chest normal Resp normal respiratory effort Cardio regular rate and regular rhythm GI non-tender Palpation: soft Extremity normal to inspection Extremity Narrative: Normal distal pulses. 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 Tapping on her ulnar nerve at the elbow does cause a shooting sensation up her arm but it does not go all the way to her shoulder. There is no swelling. No distended veins. She does have some tenderness mostly in the supraspinatus muscle on the right. She does state it hurts more when she moves and stretches her neck. But it does not cause radicular symptoms. Neuro oriented x3, no focal motor deficits and no sensory deficits noted Sensorium / Orientation: alert Psych mental status grossly normal Skin Lesions: no lesions Rashes: no rashes MDM MDM MDM Narrative Medical decision making narrative: X-ray shows no acute process. Her symptoms are more consistent with myofascial strain or possible cervical radiculopathy. Patient's last tramadol was back in January. We will get her if a few tablets to cover her until she sees her physician. She cannot tolerate steroids. Radiography Diagnostic Testing: Clinical Impression(s) from Imaging Studies Shoulder X-Ray 05/02/21 19:43 IMPRESSION: There are no acute findings of the shoulder. Electronically Signed: Zheng Soto MD at 20:05 EST , Discharge Plan Triage Chief Complaint: Upper Extremity Injury ED Provider: Jose Barfield Dx/Rx/DC Orders Clinical Impression: Acute pain of right shoulder, Right cervical radiculopathy Instructions: ED Radiculopathy, Cervical Prescriptions: New tramadol 50 mg tablet 50 mg PO Q6H PRN (Reason: pain) 2 Days Qty: 8 RF: 0 No Action metformin 500 MG tablet 850 mg PO BIDCM RF: 0 paroxetine HCl [Paxil] 30 MG tablet 30 mg PO QHS RF: 0 pravastatin 20 MG tablet 20 mg PO QHS RF: 0 Primary Care Provider: Ashli Silva Referrals: Ashli Silva PA [Primary Care Provider] - [facility] appointment Disposition Disposition: Home, Self Care
[2021-05-02] MEDS: traMADol 50 MG Tablet PO (22:02)
== END 2021-05-02 22:03 | disposition home or self-care (01) ==
PROVIDERS: Emergency Provider Emergency Medicine; PCP Physician Assistant; Visit Provider Emergency Medicine
DX: M25.511 Pain in right shoulder (principal); E11.9 Type 2 diabetes mellitus without complications; M54.12 Radiculopathy, cervical region; F17.210 Nicotine dependence, cigarettes, uncomplicated; E78.5 Hyperlipidemia, unspecified
CPT/HCPCS: 73030; 99282

== ENCOUNTER 2021-10-13 09:35 | Emergency (ER) | payer MEDICARE, MEDICAID, SELFPAY ==
[2021-10-13 09:36] VITALS: BP 122/77; PULSE 80; RESP 18; TEMP 36.6; O2SAT 99; BMI 27.4
--- NOTE | 2021-10-13 09:57 | ED.VIS.GI ---
HPI HPI - GI History of Present Illness Chief Complaint: Constipation Detail of Chief Complaint: Constipation, bloating, Informant: patient Abdominal Pain/Flank Pain Onset: Weeks (Last bowel movement 1 week ago. Last normal bowel movement 1 month ago) Context: Sudden Onset Timing: Continuous and Waxes and wanes Quality: Aching and Cramping Location: Diffuse Current Severity: Mild Maximum Severity: Moderate Worsened by: Nothing Relieved by: Nothing Nausea/Vomiting/Emesis GI Symptom: Positive for Nausea; Negative for Vomiting Onset: Days Diarrhea/Melena/Hematochezia GI Symptom: Negative for Diarrhea, Melena or Hematochezia Associated Symptoms Associated Symptoms: Negative for Dysuria, Frequency, Hematuria or Urgency Narrative Narrative: Patient is a six 5-year-old woman who presents because of abnormal bowel movements for 1 month and no bowel movement for 1 week. She is passing gas. She is status post appendectomy, cholecystectomy and . She denies prior history of partial small bowel obstruction. She denies urologic symptoms. She does report low central back discomfort as well. She states she feels bloated. She has no other complaints. Prior similar symptoms: No Recent Illness/Hospitalization: No PFSH PFS Medical History Diabetes Fibromyalgia Hyperlipidemia Home Medications metformin 500 mg tablet 850 mg PO BIDCM 07/31/13 [History Last Taken 10/24/17] paroxetine HCl 30 mg tablet (Paxil) 30 mg PO QHS 07/31/13 [History Last Taken 10/23/17] pravastatin 20 mg tablet 20 mg PO QHS 07/31/13 [History Last Taken 10/23/17] tramadol 50 mg tablet 50 mg PO Q6H PRN pain 2 days #8 tabs 05/02/21 [Rx Last Taken Unknown] Allergy/AdvReac Type Severity Reaction Status Date / Time moxifloxacin HCl Allergy Other Verified 10/13/21 09:39 [From Avelox] Penicillins Allergy Nausea Verified 10/13/21 09:39 cefuroxime [From Ceftin] AdvReac Other Verified 10/13/21 09:39 doxycycline AdvReac Nausea Verified 10/13/21 09:39 prednisone AdvReac Other Verified 10/13/21 09:39 sulfamethoxazole AdvReac Vomiting Verified 10/13/21 09:39 [From Bactrim] trimethoprim [From Bactrim] AdvReac Vomiting Verified 10/13/21 09:39 Surgical History H/O hand surgery Social History (Updated 10/13/21 @ 10:[address] Troy Roca MD) household members: none Smoking Status: Current every day smoker tobacco type: cigarettes substance use type: does not use ROS ROS ED Constitutional Constitutional ED: Denies chills, fever(s), subjective, sweats or weight loss ENT ENT ED: Denies ear pain, rhinorrhea or sore throat Cardiovascular Cardiovascular: Denies chest pain, palpitations or racing heartbeat Respiratory/Chest Respiratory/Chest: Denies cough, dyspnea or dyspnea on exertion Gastrointestinal Gastrointestinal: Reports abdominal pain, constipation and nausea; Denies diarrhea, melena or vomiting Genitourinary Genitourinary ED: Denies dysuria or hematuria Musculoskeletal Musculoskeletal: Reports back pain; Denies arthralgias, myalgias or neck pain Neurologic Neurologic: Denies headache(s), paresthesias or weakness Endocrine Endocrinology: Denies polydipsia, polyphagia or polyuria Hematologic/Lymphatic Hematologic/Lymphatic: Denies easy bleeding, easy bruising or lymphadenopathy EXAM Physical Exam Const Vital Signs: 10/13/21 09:36 Temperature 98 F Temperature Source Temporal Pulse Rate 80 Respiratory Rate 18 Blood Pressure 122/77 H Blood Pressure Mean 92 Pulse Ox 99 Oxygen Delivery Method Room Air Positive well nourished and well developed; Negative for contractures or unkempt Constitutional Narrative: Patient appears uncomfortable. General Appearance ED: well developed and NAD; Negative for unkempt, contractures or pallor HEENT Reports TM's clear and dry mucous membranes normocephalic and atraumatic Tympanic Membrane ED: Yes TM's clear Mouth ED: Yes dry mucous membranes Mouth: dry mucous membranes Eyes PERRL and EOMs intact bilaterally General Eye ED: Negative for pale conjunctiva or scleral icterus Neck no lymphadenopathy, supple and no JVD Resp normal respiratory effort and clear to auscultation bilaterally Cardio regular rate, regular rhythm, S1 normal heart sound, S2 normal heart sound and no murmurs GI no masses; Negative for non-tender or non-distended GI Narrative: Abdomen is slightly tympanitic to percussion throughout. Bowel sounds are diminished. Evidence of prior hemorrhoids noted. There is no stool in the rectal vault. Inspection: abdominal distention Auscultation: hypoactive bowel sounds Palpation: soft and tender; Negative for guarding, rigid, hepatomegaly or splenomegaly Back/Spine no CVA tenderness Thoracic Spine / Upper Back: Negative for thoracic spinal tenderness Lumbar Spine / Lower Back: Negative for lumbar spinal tenderness Extremity full ROM General Extremety ED: Negative for edema or tenderness General Extremity: Negative for edema Neuro CN's II-XII intact bilaterally, moves all extremities and no sensory deficits noted Sensorium / Orientation: alert Motor Exam: strength 5/5 throughout Psych mental status grossly normal and thought process normal Appearance: Negative for unkempt Skin no wounds General Skin Exam: Negative for jaundice or pallor MDM MDM MDM Narrative Medical decision making narrative: She presents with obstipation. Suspect this is due to fecal stasis. Abdominal series was obtained to confirm and rule out ileus versus partial small bowel obstruction. Radiography Diagnostic Testing: Abdominal series, 3 views, was obtained. Cardiac silhouette and size unremarkable. Perihilar region unremarkable. Lung parenchyma is unremarkable. Osseous structures remarkable for significant scoliosis. Patient has an ossific gas pattern noted with increased fecal stasis noted. There is no evidence of pneumoperitoneum. Surgical clips noted. Discharge Plan Triage Chief Complaint: Constipation ED Provider: Troy oRca Dx/Rx/DC Orders Clinical Impression: Obstipation Instructions: Eating a High-Fiber Diet, ED Constipation (Adult) Prescriptions: No Action metformin 500 MG tablet 850 mg PO BIDCM Label Comments: DIABETES paroxetine HCl [Paxil] 30 MG tablet 30 mg PO QHS Label Comments: DEPRESSION/ ANXIETY pravastatin 20 MG tablet 20 mg PO QHS Label Comments: CHOLESTEROL tramadol 50 mg tablet 50 mg PO Q6H PRN (Reason: pain) 2 Days Qty: 8 0RF Primary Care Provider: Ashli Silva Referrals: Ashli Silva, PA [Primary Care Provider] - 3-5 Days if not improving Activity Restrictions/Additional Instructions: 1. Once you get home drink 10 ounces of mag citrate. 2. 4 hours after drinking the mag citrate drink 1 glass of MiraLAX. 3. Continue to drink 1 glass of MiraLAX every hour until you have results Disposition Disposition: Home, Self Care
--- NOTE | 2021-10-13 10:21 | RAD_ITS ---
STUDY: X-RAY - ACUTE ABDOMINAL SERIES REASON FOR EXAM: Female, 65 years old. No bowel movement x1 week TECHNIQUE: Single view of the chest. Supine, and erect view(s) of the abdomen were obtained. COMPARISON: Comparison is made with prior chest radiograph dated 01/09/2016. FINDINGS: Hyperinflation. Stable mild increased markings at the lung bases suggestive of mild basilar scarring. Normal size heart. Normal mediastinum and isabel. Normal visualized pulmonary arteries. Normal visualized aortic arch and descending thoracic aorta. Dextroscoliosis. There is a moderate amount of colonic fecal material. Surgical clips are seen in the right upper quadrant and right hemipelvis. There is evidence of a 5.4 mm calculus in the upper pole of the left kidney. There are diffuse degenerative changes of the visualized lumbar spine. Levoscoliosis. RAD/Acute Abdomen Inc Chest IMPRESSION: Moderate amount of fecal material is seen in the colon. 5.4 mm calculus in the upper pole of the left kidney. Hyperinflation. Electronically Signed: Temo Dukes MD at 10:46 EDT ,
== END 2021-10-13 11:00 | disposition home or self-care (01) ==
LOC: ED 10:43
PROVIDERS: Emergency Provider Emergency Medicine; PCP Physician Assistant; Visit Provider Emergency Medicine
DX: K59.00 Constipation, unspecified (principal); E11.9 Type 2 diabetes mellitus without complications; F17.210 Nicotine dependence, cigarettes, uncomplicated; E78.5 Hyperlipidemia, unspecified; Z79.899 Other long term (current) drug therapy; Z90.89 Acquired absence of other organs
CPT/HCPCS: 74022; 99282

== ENCOUNTER 2022-04-12 15:05 | Emergency (ER) | payer MEDICARE, MEDICAID, SELFPAY ==
[2022-04-12 15:06] VITALS: BP 110/82; PULSE 72; RESP 16; TEMP 36.6; O2SAT 97; BMI 27.6
--- NOTE | 2022-04-12 15:10 | RAD_ITS ---
STUDY: X-RAY - LEFT WRIST REASON FOR EXAM: Female, 66 years old. Left wrist injury due to a fall. TECHNIQUE: 3 view(s) of the wrist were obtained. COMPARISON: None. FINDINGS: Normal visualized distal radius and ulna. Normal radiocarpal articulation. Normal distal radioulnar articulation. Normal carpal bones. Normal carpal articulations. Normal carpometacarpal articulation of the thumb. Normal second through fifth carpometacarpal articulations. Normal visualized metacarpal bones. Soft tissue swelling. RAD/Wrist min 3 Views IMPRESSION: Soft tissue swelling. No fracture is seen. Electronically Signed: Temo Dukes MD at 15:23 EST ,
--- NOTE | 2022-04-12 15:36 | EX.ED.UPPERE ---
HPI History of Present Illness Chief Complaint: Upper Extremity Injury Informant: patient Onset/Context/Timing Onset: Today Current Severity: Moderate Maximum Severity: Moderate Narrative Narrative: Patient presents after trip and fall this morning at home. She tripped and fell putting her left hand out to catch her self. She presents with left knee and left wrist pain. She is [id number]. She denies striking her head. [facility] Medical History Constipation Diabetes Fibromyalgia Hyperlipidemia Home Medications metformin 500 mg tablet 850 mg PO BIDCM 07/31/13 [History Last Taken 10/24/17] paroxetine HCl 30 mg tablet (Paxil) 30 mg PO QHS 07/31/13 [History Last Taken 10/23/17] pravastatin 20 mg tablet 20 mg PO QHS 07/31/13 [History Last Taken 10/23/17] tramadol 50 mg tablet 50 mg PO Q6H PRN pain 2 days #8 tabs 05/02/21 [Rx Last Taken Unknown] hydrocodone-acetaminophen 5-325mg 5mg-325mg 1 tab PO Q6H PRN pain 3 days #10 tabs 04/12/22 [Rx Last Taken Unknown] Allergy/AdvReac Type Severity Reaction Status Date / Time moxifloxacin HCl Allergy Other Verified 04/12/22 15:07 [From Avelox] Penicillins Allergy Nausea Verified 04/12/22 15:07 cefuroxime [From Ceftin] AdvReac Other Verified 04/12/22 15:07 doxycycline AdvReac Nausea Verified 04/12/22 15:07 prednisone AdvReac Other Verified 04/12/22 15:07 sulfamethoxazole AdvReac Vomiting Verified 04/12/22 15:07 [From Bactrim] trimethoprim [From Bactrim] AdvReac Vomiting Verified 04/12/22 15:07 Surgical History H/O hand surgery Social History household members: none Smoking Status: Current every day smoker tobacco type: cigarettes substance use type: does not use ROS ROS ED Constitutional Constitutional ED: Denies chills or fever(s) Eyes Eyes: Denies change in vision or discharge from eye(s) ENT ENT ED: Denies discharge from eye(s), rhinorrhea or sore throat Cardiovascular Cardiovascular: Denies chest pain or palpitations Respiratory/Chest Respiratory/Chest: Denies cough or dyspnea Gastrointestinal Gastrointestinal: Denies abdominal pain, diarrhea, nausea or vomiting Genitourinary Genitourinary ED: Denies difficulty urinating or dysuria Musculoskeletal Musculoskeletal: Reports extremity pain; Denies back pain Integumentary Denies Abrasions or rash Neurologic Neurologic: Denies headache(s) or weakness Psychiatric Psychiatric: Denies anxiety or depression Endocrine Endocrinology: Denies polydipsia or polyuria Allergic/Immunologic Allergic/Immunologic ED: Denies lip swelling or urticaria EXAM Physical Exam Const Vital Signs: 04/12/22 15:06 Temperature 98 F Temperature Source Temporal Pulse Rate 72 Respiratory Rate 16 Blood Pressure 110/82 H Blood Pressure Mean 91 Pulse Ox 97 Oxygen Delivery Method Room Air Positive well nourished and well developed General Appearance ED: well developed HEENT Reports moist mucous membranes Eyes PERRL and EOMs intact bilaterally Neck full ROM Neck Narrative: No C-spine tenderness. Chest Wall inspection of chest normal and palpation of chest normal Resp normal respiratory effort and clear to auscultation bilaterally Cardio regular rate and regular rhythm GI non-tender and non-distended Back/Spine Cervical Spine: Negative for cervical spine tenderness Thoracic Spine / Upper Back: Negative for thoracic spinal tenderness Lumbar Spine / Lower Back: Negative for lumbar spinal tenderness Extremity Extremity Narrative: Tenderness and edema to the left wrist. Good distal pulses with normal cap refill. No tenderness at the elbow or shoulder itself. No abrasions or lacerations. Mild tenderness to the left anterior knee with superficial abrasion. Full range of motion with no bony tenderness. Neuro oriented x3 Psych mental status grossly normal MDM MDM MDM Narrative Medical decision making narrative: Left wrist x-rays were obtained per nursing protocol. Radiography Diagnostic Testing: Clinical Impression(s) from Imaging Studies Wrist X-Ray 04/12/22 15:10 IMPRESSION: Soft tissue swelling. No fracture is seen. Electronically Signed: Temo Dukes MD at 15:23 EST Reading Location ID and State: [facility] / [place] , Service support , Treatment and Re-Evaluation Narrative: Left wrist x-rays per my interpretation reveal no obvious fracture. Radiology interpretation is reviewed and agrees. Dominguez wrap will be applied to the left wrist with overlying Velcro wrist splint. Dominguez wrap is applied followed by a Velcro wrist splint. She will be written a short course of [place] for pain control. She is seen at her [facility] in the past and will follow up with him as needed. Discharge Plan Triage Chief Complaint: Upper Extremity Injury ED Provider: Richelle Quinn Dx/Rx/DC Orders Clinical Impression: Fall, Left wrist sprain, Contusion of knee, left Instructions: ED Wrist Sprain Prescriptions: New hydrocodone-acetaminophen 5-325 mg tablet 1 tab PO Q6H PRN (Reason: pain) 3 Days Qty: 10 0RF No Action metformin 500 MG tablet 850 mg PO BIDCM Label Comments: DIABETES paroxetine HCl [Paxil] 30 MG tablet 30 mg PO QHS Label Comments: DEPRESSION/ ANXIETY pravastatin 20 MG tablet 20 mg PO QHS Label Comments: CHOLESTEROL tramadol 50 mg tablet 50 mg PO Q6H PRN (Reason: pain) 2 Days Qty: 8 0RF Primary Care Provider: Ashli Silva Referrals: [facility] MD [Non-Staff] - 1 Week if not improving Ashli Silva PA [Primary Care Provider] - Disposition Disposition: Home, Self Care
[2022-04-12] MEDS: HYDROcodone Bitartrate/Apap 5/325 Tablet PO (16:00)
== END 2022-04-12 16:11 | disposition home or self-care (01) ==
PROVIDERS: Emergency Provider Emergency Medicine; PCP Physician Assistant; Visit Provider Emergency Medicine
DX: S80.02XA Contusion of left knee, initial encounter (principal); E11.9 Type 2 diabetes mellitus without complications; S63.92XA Sprain of unspecified part of left wrist and hand, initial encounter; F17.210 Nicotine dependence, cigarettes, uncomplicated; E78.5 Hyperlipidemia, unspecified; W01.0XXA Fall on same level from slipping, tripping and stumbling without subsequent striking against object, initial encounter
CPT/HCPCS: 73110; 99283

== ENCOUNTER 2022-07-17 17:19 | Emergency (ER) | payer MEDICARE, MEDICAID, SELFPAY ==
[2022-07-17 17:20] VITALS: BP 144/83; PULSE 76; RESP 12; TEMP 36.4; O2SAT 100; BMI 28.3
--- NOTE | 2022-07-17 18:50 | CT_ITS ---
STUDY: CT CERVICAL SPINE WITHOUT CONTRAST REASON FOR EXAM: Female, 66 years old. Trauma RADIATION DOSAGE (If Supplied By Facility): CTDIvol = ( 21.88 ) mGy, DLP = ( 1220.50 ) mGycm TECHNIQUE: High resolution transaxial imaging was performed without contrast material. Sagittal and coronal images were reconstructed. Individualized dose optimization techniques were used for this CT. COMPARISON: None FINDINGS: Normal craniovertebral junction. Normal anterior atlantoaxial articulation. Normal odontoid process. Normal cervical lordosis. Normal vertebral bodies and posterior osseous elements. C2-3: Normal endplates. Normal disc height and morphology. Hypertrophy of the right facet joint. Normal central canal and intervertebral neuroforamina. C3-4: Spurring at the endplates. Normal disc height with trace posterior annular bulge. Normal central canal and intervertebral neuroforamina. C4-5: Mild spurring at the endplates. Normal disc height with slight posterior annular bulge. Normal central canal. Uncovertebral spurring narrowing the right intervertebral neural foramen. C5-6: Spurring at the endplates. Narrowed disc height. Posterior spurring slightly protruding to the central canal. Uncovertebral spurring narrowing the intervertebral neuroforamina, right more than left. C6-7: Spurring at the endplates. Slightly narrowed disc height. Normal central canal and intervertebral neuroforamina. C7-T1: Normal endplates. Normal disc height and morphology. Normal central canal and intervertebral neuroforamina. Normal visualized soft tissue structures. CT/Spine Cervical without Contras IMPRESSION: Degenerative changes and discogenic disease as noted of the cervical spine. Electronically Signed: Klever Liu DO at 19:52 EDT Reading Location ID and State: [facility] / [place] Tel [phone], Service support ,
--- NOTE | 2022-07-17 18:50 | CT_ITS ---
STUDY: CT BRAIN WITHOUT CONTRAST REASON FOR EXAM: Female, 66 years old. Trauma RADIATION DOSAGE (If Supplied By Facility): CTDIvol = ( 44.99 ) mGy, DLP = ( 1220.50 ) mGycm TECHNIQUE: Transaxial CT imaging of the brain was performed without administration of intravenous contrast material. Individualized dose optimization techniques were used for this CT. COMPARISON: January 11, 2021 FINDINGS: Normal soft tissue structures. Normal calvarium. Normal size ventricles and extra-axial spaces for the patient''s age. Normal white matter tracts of the cerebral hemispheres. Normal basal ganglia and thalami. Normal brainstem. Normal cerebellum. There is no intracranial hemorrhage. There are no findings of an acute ischemic infarction. Mild mucosal thickening of the visualized paranasal sinuses. CT/Brain/Head without Contrast IMPRESSION: No acute intracranial pathology of the brain. Electronically Signed: Klever Liu DO at 19:41 EDT ,
--- NOTE | 2022-07-17 19:02 | EX.ED.GENINJ ---
HPI History of Present Illness Chief Complaint: Fall Informant: patient Narrative Narrative: Patient presents after a fall on . This was a mechanical fall. She states she was going to sit on a porch swing. She looked at it. When she turned around and sat back she just slid off the front. She landed on her buttock. The swing went back and then came and hit her in the back of the head. No loss of consciousness. The only area that is hurting her is the back of the head. She is not on any blood thinners. No numbness tingling or weakness. She has had some mild nausea. Mild sleep changes. No discoordination. No anticoagulation. She is just concerned because she still having headaches. She is states that she knows she has a concussion she is just worried that it is worse. [facility] Medical History Constipation Diabetes Fibromyalgia Hyperlipidemia Home Medications metformin 500 mg tablet 850 mg PO BIDCM 07/31/13 [History Last Taken 10/24/17] paroxetine HCl 30 mg tablet (Paxil) 30 mg PO QHS 07/31/13 [History Last Taken 10/23/17] pravastatin 20 mg tablet 20 mg PO QHS 07/31/13 [History Last Taken 10/23/17] tramadol 50 mg tablet 50 mg PO Q6H PRN pain 2 days #8 tabs 05/02/21 [Rx Last Taken Unknown] hydrocodone-acetaminophen 5-325mg 5mg-325mg 1 tab PO Q6H PRN pain 3 days #10 tabs 04/12/22 [Rx Last Taken Unknown] ondansetron 4 mg disintegrating tablet 4 mg PO Q8H PRN PRN Nausea #10 tabs 07/17/22 [Rx Last Taken Unknown] Allergy/AdvReac Type Severity Reaction Status Date / Time moxifloxacin HCl Allergy Other Verified 07/17/22 17:20 [From Avelox] Penicillins Allergy Nausea Verified 07/17/22 17:20 cefuroxime [From Ceftin] AdvReac Other Verified 07/17/22 17:20 doxycycline AdvReac Nausea Verified 07/17/22 17:20 prednisone AdvReac Other Verified 07/17/22 17:20 sulfamethoxazole AdvReac Vomiting Verified 07/17/22 17:20 [From Bactrim] trimethoprim [From Bactrim] AdvReac Vomiting Verified 07/17/22 17:20 Surgical History H/O hand surgery Social History household members: none Smoking Status: Current every day smoker tobacco type: cigarettes substance use type: does not use ROS ROS ED Constitutional Constitutional ED: Denies chills or fever(s) Eyes Eyes: Denies blurry vision or change in vision ENT ENT ED: Denies rhinorrhea or sore throat Cardiovascular Cardiovascular: Denies chest pain Respiratory/Chest Respiratory/Chest: Denies cough Gastrointestinal Gastrointestinal: Denies diarrhea, nausea or vomiting Genitourinary Genitourinary ED: Denies hematuria Musculoskeletal Musculoskeletal: Reports neck pain; Denies arthralgias or back pain Integumentary Denies Abrasions or rash Neurologic Neurologic: Reports headache(s); Denies paresthesias or weakness Endocrine Endocrinology: Denies polydipsia or polyuria Hematologic/Lymphatic Hematologic/Lymphatic: Denies easy bleeding or easy bruising Allergic/Immunologic Allergic/Immunologic ED: Denies urticaria EXAM Physical Exam Narrative Exam Narrative: Patient awake alert no acute distress. Carries on normal conversation. HEENT no laceration or contusion found. No local swelling. No step-off. No other trauma noted. Mucous membranes are moist. Eyes: Normal range of motion. No limitation of gauge. No disconjugate gaze. Pupillary response is normal. Neck is supple no pain with motion and no tenderness. Lungs are clear bilaterally. No pain with a deep breath. Saturations are normal. Heart is regular. No murmur gallop or rub Abdomen is soft nontender. There is no tenderness of cervical thoracic or lumbar spine Extremities show no deformities. Neurologically she is awake alert appropriate. Consistent informant. No confusion. No balance or discoordination. Const Vital Signs: 07/17/22 17:20 Temperature 97.6 F L Temperature Source Temporal Pulse Rate 76 Respiratory Rate 12 Blood Pressure 144/83 H Blood Pressure Mean 103 Pulse Ox 100 Oxygen Delivery Method Room Air MDM MDM MDM Narrative Medical decision making narrative: My independent interpretation the patient's CT of the head shows what looks to be some calcification in the anterior falx but no acute process. Final reading does show no acute intracranial pathology. My independent interpretation of her CT of the CT spine shows arthritic changes but no acute fracture. This is similar to final reading. I think patient has postconcussive syndrome. She has had occasional mild nausea so I will write for some Zofran. But Tylenol should be appropriate. We discussed returning with any numbness tingling weakness balance problems visions problems forgetfulness recurrent vomiting or other concerns Radiography Diagnostic Testing: Clinical Impression(s) from Imaging Studies Brain CT 07/17/22 18:50 IMPRESSION: No acute intracranial pathology of the brain. Electronically Signed: Klever Liu DO at 19:41 EDT , Cervical Spine CT 07/17/22 18:50 IMPRESSION: Degenerative changes and discogenic disease as noted of the cervical spine. Electronically Signed: Klever Liu DO at 19:52 EDT , Discharge Plan Triage Chief Complaint: Fall Other Complaint: Dizziness Head Injury ED Provider: Jose Barfield Dx/Rx/DC Orders Clinical Impression: CHI (closed head injury), Concussion Instructions: ED Concussion, ED Head Injury (Adult) Prescriptions: New ondansetron [ondansetron] 4 mg tablet,disintegrating 4 mg PO Q8H PRN PRN (Reason: Nausea) Qty: 10 0RF No Action metformin 500 MG tablet 850 mg PO BIDCM Label Comments: DIABETES paroxetine HCl [Paxil] 30 MG tablet 30 mg PO QHS Label Comments: DEPRESSION/ ANXIETY pravastatin 20 MG tablet 20 mg PO QHS Label Comments: CHOLESTEROL tramadol 50 mg tablet 50 mg PO Q6H PRN (Reason: pain) 2 Days Qty: 8 0RF hydrocodone-acetaminophen 5-325 mg tablet 1 tab PO Q6H PRN (Reason: pain) 3 Days Qty: 10 0RF Primary Care Provider: Ashli Silva Referrals: Ashli Silva, PA [Primary Care Provider] - 1 Week if not improving Disposition Disposition: Home, Self Care
[2022-07-17 20:27] VITALS: RESP 18
== END 2022-07-17 20:28 | disposition home or self-care (01) ==
PROVIDERS: Emergency Provider Emergency Medicine; PCP Physician Assistant; Visit Provider Emergency Medicine
DX: S06.0X0A Concussion without loss of consciousness, initial encounter (principal); E11.9 Type 2 diabetes mellitus without complications; F17.210 Nicotine dependence, cigarettes, uncomplicated; E78.5 Hyperlipidemia, unspecified; M79.7 Fibromyalgia; W17.89XA Other fall from one level to another, initial encounter
CPT/HCPCS: 70450; 72125; 99282

== ENCOUNTER 2022-12-04 19:47 | Emergency (ER) | payer MEDICARE, MEDICAID, SELFPAY ==
[2022-12-04 19:48] VITALS: BP 107/69; PULSE 72; RESP 16; TEMP 36.1; O2SAT 100; O2SAT 99; BMI 27.0
--- NOTE | 2022-12-04 22:13 | CT_ITS ---
INDICATION: Head injury. EXAMINATION: CT BRAIN - CT Head or Brain W/O Contrast Injection TECHNIQUE: Multiple axial images were obtained of the head without intravenous contrast. A radiation dose optimization technique was used for this scan. IV Contrast dosage and agent: None. RADIATION DOSAGE (If Supplied By Facility): CTDIvol = ( 44.99 ) mGy, DLP = ( 796.11 ) mGycm COMPARISON: Prior exam of 07/17/2022. FINDINGS: BRAIN PARENCHYMA: No intra- or extra-axial hemorrhage. No evidence of acute infarct. No intracranial mass or mass effect. There is preservation of the purcell/white matter interface. Posterior fossa structures are unremarkable. CSF SPACES: Appropriate for age. No hydrocephalus. Basal cisterns are patent. CALVARIUM, SKULL BASE, PARANASAL SINUSES AND MASTOID AIR CELLS: Minimal mucosal thickening of ethmoid sinus. No discrete lytic or blastic abnormalities. ORBITS: Status post cataract surgery. ASPECTS Score for Acute Strokes: 10 CT/Brain/Head without Contrast IMPRESSION: No acute intracranial process. Electronically Signed: Anuj Mead MD at 23:05 EDT ,
--- NOTE | 2022-12-04 22:13 | EDS_ITS ---
HPI History of Present Illness Chief Complaint: Head Injury Informant: patient Narrative Narrative: 67-year-old female presents the emergency room with headache. Patient states that around 1500 hrs. today she was bent over going through some fabric for her sewing. She stood up too quickly striking the vertex of her head on a granite counter. She did not lose consciousness but states that her my brain feels scrambled. She notes soreness at the top of her head. She states that she feels off balance. No vomiting or nausea. She does not take any blood thinners or antiplatelets. The patient states that she has had prior concussion in June of this year. She states that she has hit her head several times in the past week. She denies any symptoms below the head [facility] Medical History Constipation Diabetes Fibromyalgia Hyperlipidemia Home Medications metformin 500 mg tablet 850 mg PO BIDCM 07/31/13 [History Last Taken 10/24/17] paroxetine HCl 30 mg tablet (Paxil) 30 mg PO QHS 07/31/13 [History Last Taken 10/23/17] pravastatin 20 mg tablet 20 mg PO QHS 07/31/13 [History Last Taken 10/23/17] tramadol 50 mg tablet 50 mg PO Q6H PRN pain 2 days #8 tabs 05/02/21 [Rx Last Taken Unknown] hydrocodone-acetaminophen 5-325mg 5mg-325mg 1 tab PO Q6H PRN pain 3 days #10 tabs 04/12/22 [Rx Last Taken Unknown] ondansetron 4 mg disintegrating tablet 4 mg PO Q8H PRN PRN Nausea #10 tabs 07/17/22 [Rx Last Taken Unknown] Allergy/AdvReac Type Severity Reaction Status Date / Time moxifloxacin HCl Allergy Other Verified 12/04/22 19:53 [From Avelox] Penicillins Allergy Nausea Verified 12/04/22 19:53 cefuroxime [From Ceftin] AdvReac Other Verified 12/04/22 19:53 doxycycline AdvReac Nausea Verified 12/04/22 19:53 prednisone AdvReac Other Verified 12/04/22 19:53 sulfamethoxazole AdvReac Vomiting Verified 12/04/22 19:53 [From Bactrim] trimethoprim [From Bactrim] AdvReac Vomiting Verified 12/04/22 19:53 Surgical History H/O hand surgery Social History household members: none Smoking Status: Current every day smoker tobacco type: cigarettes substance use type: does not use ROS ROS ED Constitutional Constitutional ED: Denies chills or weight loss Eyes Eyes: Denies change in vision or diplopia ENT ENT ED: Denies ear pain, rhinorrhea or sore throat Cardiovascular Cardiovascular: Denies chest pain, orthopnea, palpitations or racing heartbeat Respiratory/Chest Respiratory/Chest: Denies cough, dyspnea or orthopnea Gastrointestinal Gastrointestinal: Denies abdominal pain, diarrhea, nausea or vomiting Genitourinary Genitourinary ED: Denies dysuria, hematuria or urinary frequency Musculoskeletal Musculoskeletal: Denies arthralgias, back pain, myalgias or neck pain Integumentary Denies abscess or rash Neurologic Neurologic: Reports headache(s); Denies weakness Psychiatric Psychiatric: Denies anxiety, depression, suicidal ideation or suicidal thoughts Endocrine Endocrinology: Denies polydipsia, polyphagia or polyuria Allergic/Immunologic Allergic/Immunologic ED: Denies mouth swelling, tongue swelling or urticaria EXAM Physical Exam Const Vital Signs: 12/04/22 19:48 12/04/22 19:48 Temperature 97.0 F L 97.0 F L Temperature Source Temporal Temporal Pulse Rate 72 72 Respiratory Rate 16 16 Blood Pressure 107/69 107/69 Blood Pressure Mean 81 81 Pulse Ox 99 100 Oxygen Delivery Method Room Air Room Air Positive well nourished and well developed General Appearance ED: well developed HEENT Reports normocephalic, head/scalp atraumatic and moist mucous membranes HEENT Narrative: Patient has tenderness to palpation of the vertex of her skull. There is no significant hematoma abrasions or lacerations noted Eyes PERRL and EOMs intact bilaterally Neck no lymphadenopathy, supple and no JVD Resp normal respiratory effort and clear to auscultation bilaterally Cardio regular rate, regular rhythm and no murmurs GI normal to inspection, nondistended, normoactive bowel sounds and non-tender Palpation: soft Back/Spine no CVA tenderness and normal ROM Extremity normal to inspection General Extremety ED: Negative for edema General Extremity: Negative for edema Neuro oriented x3 and CN's II-XII intact bilaterally Neuro Narrative: Normal finger-nose heel marti. Enedelia Coma Scale: document GCS findings Spontaneous Obeys Commands Oriented 15 Sensorium / Orientation: alert Motor Exam: strength 5/5 throughout Psych mental status grossly normal Mood & Affect: Negative for depressed or tearful Skin no rashes or lesions noted and no wounds MDM MDM MDM Narrative Medical decision making narrative: CT of the brain was obtained which is negative for intracranial hemorrhage or fracture. Patient was given reassurance. Would recommend Tylenol for pain. Follow-up with primary care return if worsening or concerns Radiography Diagnostic Testing: Clinical Impression(s) from Imaging Studies Brain CT 12/04/22 22:13 IMPRESSION: No acute intracranial process. Electronically Signed: Anuj Mead MD at 23:05 EDT , Discharge Plan Triage Chief Complaint: Head Injury ED Provider: Sukhjinder Prescott Dx/Rx/DC Orders Clinical Impression: Mild concussion, Contusion of scalp Instructions: ED Concussion Prescriptions: No Action metformin 500 MG tablet 850 mg PO BIDCM Patient Comments: DIABETES paroxetine HCl [Paxil] 30 MG tablet 30 mg PO QHS Patient Comments: DEPRESSION/ ANXIETY pravastatin 20 MG tablet 20 mg PO QHS Patient Comments: CHOLESTEROL tramadol 50 mg tablet 50 mg PO Q6H PRN (Reason: pain) 2 Days Qty: 8 0RF hydrocodone-acetaminophen 5-325 mg tablet 1 tab PO Q6H PRN (Reason: pain) 3 Days Qty: 10 0RF ondansetron [ondansetron] 4 mg tablet,disintegrating 4 mg PO Q8H PRN PRN (Reason: Nausea) Qty: 10 0RF Primary Care Provider: Ashli Silva Referrals: Ashli Silva PA [Primary Care Provider] - As Needed Disposition Disposition: Home, Self Care
[2022-12-04 23:24] VITALS: BP 138/81; PULSE 68; O2SAT 97
== END 2022-12-04 23:25 | disposition home or self-care (01) ==
PROVIDERS: Emergency Provider Emergency Medicine; PCP Physician Assistant; Visit Provider Emergency Medicine
DX: S06.0X0A Concussion without loss of consciousness, initial encounter (principal); E11.9 Type 2 diabetes mellitus without complications; F17.210 Nicotine dependence, cigarettes, uncomplicated; E78.5 Hyperlipidemia, unspecified; S00.03XA Contusion of scalp, initial encounter; W22.03XA Walked into furniture, initial encounter; Y93.89 Activity, other specified; Z79.84 Long term (current) use of oral hypoglycemic drugs; Z79.899 Other long term (current) drug therapy
CPT/HCPCS: 70450; 99282

== ENCOUNTER 2022-12-07 17:02 | Emergency (ER) | payer MEDICARE, MEDICAID, SELFPAY ==
[2022-12-07 17:03] VITALS: BP 130/80; PULSE 79; RESP 18; TEMP 36.4; O2SAT 100; BMI 27.1
--- NOTE | 2022-12-07 17:40 | CT_ITS ---
EXAM: CT brain without contrast HISTORY: Pain TECHNIQUE: No intravenous contrast. A radiation dose optimization technique was used for this scan. COMPARISON: Head CT December 04, 2022. LIMITATIONS: None. BRAIN: Normal purcell/white matter differentiation. VENTRICLES: No hydrocephalus. EXTRA-AXIAL SPACES: No acute hemorrhage. CALVARIUM/SKULL BASE: No acute fracture. FACE/SINUSES: Mucosal thickening or fluid in the frontal sinus. SOFT TISSUES: Normal. OTHER: None. CONCLUSION: No acute intracranial abnormality. Electronically Signed: Jarocho Macias MD at 18:37 EDT , CT/Brain/Head without Contrast IMPRESSION: undefined
--- NOTE | 2022-12-07 17:44 | EX.ED.VIS.HA ---
HPI History of Present Illness Chief Complaint: Head Injury Narrative Narrative: 67-year-old female presenting with headache. She states she was diagnosed with concussion a few days ago. At that point she had hit her head on a granite counter after being bent over and stood up into it. Patient's headache improved somewhat but she hit her head on a shelf and the cat jumped on her head at 1 point at home. She states that she was still having mild headache and sleepiness but she noted today that when her son-in-law played loud rock music that her headache came back severely. She also has nausea. She is not on blood thinners. [facility] Medical History Constipation Diabetes Fibromyalgia Hyperlipidemia Home Medications metformin 500 mg tablet 850 mg PO BIDCM 07/31/13 [History Last Taken 10/24/17] paroxetine HCl 30 mg tablet (Paxil) 30 mg PO QHS 07/31/13 [History Last Taken 10/23/17] pravastatin 20 mg tablet 20 mg PO QHS 07/31/13 [History Last Taken 10/23/17] tramadol 50 mg tablet 50 mg PO Q6H PRN pain 2 days #8 tabs 05/02/21 [Rx Last Taken Unknown] hydrocodone-acetaminophen 5-325mg 5mg-325mg 1 tab PO Q6H PRN pain 3 days #10 tabs 04/12/22 [Rx Last Taken Unknown] ondansetron 4 mg disintegrating tablet 4 mg PO Q8H PRN PRN Nausea #10 tabs 07/17/22 [Rx Last Taken Unknown] ondansetron 4 mg disintegrating tablet 4 mg PO Q8H PRN PRN Nausea #14 tabs 12/07/22 [Rx Last Taken Unknown] Allergy/AdvReac Type Severity Reaction Status Date / Time moxifloxacin HCl Allergy Other Verified 12/07/22 17:06 [From Avelox] Penicillins Allergy Nausea Verified 12/07/22 17:06 cefuroxime [From Ceftin] AdvReac Other Verified 12/07/22 17:06 doxycycline AdvReac Nausea Verified 12/07/22 17:06 prednisone AdvReac Other Verified 12/07/22 17:06 sulfamethoxazole AdvReac Vomiting Verified 12/07/22 17:06 [From Bactrim] trimethoprim [From Bactrim] AdvReac Vomiting Verified 12/07/22 17:06 Surgical History H/O hand surgery Social History household members: none Smoking Status: Current every day smoker tobacco type: cigarettes substance use type: does not use ROS ROS ED Constitutional Constitutional ED: Denies chills, fever(s) or sweats Eyes Eyes: Denies blurry vision or change in vision ENT ENT ED: Denies ear pain or sore throat Cardiovascular Cardiovascular: Denies chest pain, palpitations or racing heartbeat Respiratory/Chest Respiratory/Chest: Denies cough, dyspnea or sputum Gastrointestinal Gastrointestinal: Reports nausea; Denies abdominal pain, constipation, diarrhea or vomiting Genitourinary Genitourinary ED: Denies dysuria, hematuria or urinary frequency Musculoskeletal Musculoskeletal: Denies arthralgias, myalgias or neck pain Integumentary Denies abscess, Abrasions or rash Neurologic Neurologic: Reports headache(s); Denies paresthesias or weakness Psychiatric Psychiatric: Denies anxiety, depression, suicidal ideation or suicidal thoughts Endocrine Endocrinology: Denies polydipsia or polyuria EXAM Physical Exam Const Vital Signs: 12/07/22 17:03 12/07/22 17:36 Temperature 97.5 F L Temperature Source Temporal Pulse Rate 79 Respiratory Rate 18 Respiratory Effort Normal Non-Labored Respiratory Depth Normal Respiratory Pattern Normal Blood Pressure 130/80 H Blood Pressure Mean 96 Pulse Ox 100 Oxygen Delivery Method Room Air Room Air Positive well nourished General Appearance ED: NAD HEENT Reports normocephalic Eyes PERRL and EOMs intact bilaterally Resp normal respiratory effort Cardio regular rate and regular rhythm GI non-tender Extremity normal to inspection and full ROM Neuro oriented x3 and CN's II-XII intact bilaterally Psych mental status grossly normal MDM MDM MDM Narrative Medical decision making narrative: 67-year-old female with headache. Differential includes concussion, intracranial hemorrhage, skull fracture, scalp contusion. Patient medicated with Reglan, Benadryl. She was given a liter normal saline. CT of the brain was obtained. Patient feeling improved after treatment. CT brain is negative. Patient given a prescription for Zofran at home. She is counseled to discontinue listening to loud music. She is counseled that she might have some nausea and to take Zofran as needed. I recommended she stay away from digital media and physical activity. Return precautions discussed. Impression: 1. Closed head injury 2. Concussion 3. Nausea Radiography Diagnostic Testing: Clinical Impression(s) from Imaging Studies Brain CT 12/07/22 17:40 IMPRESSION: undefined Discharge Plan Triage Chief Complaint: Head Injury ED Provider: Don Lemons Dx/Rx/DC Orders Instructions: ED Concussion Prescriptions: New ondansetron 4 mg tablet,disintegrating 4 mg PO Q8H PRN PRN (Reason: Nausea) Qty: 14 0RF No Action metformin 500 MG tablet 850 mg PO BIDCM Patient Comments: DIABETES paroxetine HCl [Paxil] 30 MG tablet 30 mg PO QHS Patient Comments: DEPRESSION/ ANXIETY pravastatin 20 MG tablet 20 mg PO QHS Patient Comments: CHOLESTEROL tramadol 50 mg tablet 50 mg PO Q6H PRN (Reason: pain) 2 Days Qty: 8 0RF hydrocodone-acetaminophen 5-325 mg tablet 1 tab PO Q6H PRN (Reason: pain) 3 Days Qty: 10 0RF ondansetron [ondansetron] 4 mg tablet,disintegrating 4 mg PO Q8H PRN PRN (Reason: Nausea) Qty: 10 0RF Primary Care Provider: Ashli Silva Referrals: Ashli Silva PA [Primary Care Provider] - Disposition Disposition: Home, Self Care
[2022-12-07] MEDS: 0.9% Normal Saline (1000mL) 1,000 ML 999 ML IV (17:52)
[2022-12-07] MEDS: DiphenhydrAMINE 50 MG/ML Syringe 25 MG IV (17:52)
[2022-12-07] MEDS: proCHLORPERazine 10 MG/2 ML Vial IV (17:53)
== END 2022-12-07 19:24 | disposition home or self-care (01) ==
PROVIDERS: Emergency Provider Student in an Organized Health Care Education/Training Program; PCP Physician Assistant; Visit Provider Student in an Organized Health Care Education/Training Program
DX: S06.0X0A Concussion without loss of consciousness, initial encounter (principal); E11.9 Type 2 diabetes mellitus without complications; E78.5 Hyperlipidemia, unspecified; F17.210 Nicotine dependence, cigarettes, uncomplicated; R11.0 Nausea; M79.7 Fibromyalgia; W22.8XXA Striking against or struck by other objects, initial encounter
CPT/HCPCS: 70450; 96361; 96374; 96375; 99283

== ENCOUNTER 2023-05-08 20:12 | Emergency (ER) | payer MEDICARE, MEDICAID, SELFPAY ==
[2023-05-08 20:15] VITALS: BP 147/84; PULSE 94; RESP 16; TEMP 37; O2SAT 98; BMI 27.1
[2023-05-08 20:19] VITALS: BP 147/84; PULSE 94; RESP 20; TEMP 37; O2SAT 98
[2023-05-08 21:09] LABS: Absolute Lymphocyte Count 2.02 X10^3/uL (0.83-4.51); Absolute Neutrophil Count 7.5 X10^3/uL (2.0-7.7); Basophil# 0.06 X10^3/uL; Basophil% 0.6 % (0-1); Eosinophil# 0.15 X10^3/uL; Eosinophils% 1.4 % (0-5); Hematocrit 37.3 % (37-47); Hemoglobin 11.7 g/dL (12.0-15.0); Lymphocyte # 2.02 X10^3/ul (0.83-4.51); Lymphocyte % 19.2 % (19-41); Mean Corp Hgb Conc 31.4 g/dL (32-36); Mean Corpuscular Hgb 29.7 pg (27.0-32.0); Mean Corpuscular Volume 94.7 fL (81-99); Mean Platelet Vol. 10.8 fl (6.2-12.0); Monocyte# 0.81 X10^3/uL; Monocyte% 7.7 % (0-10); NRBC Flagged by Analyzer 0 % (0-5); Neutrophil # 7.45 X10^3/uL (2.7-7.7); Neutrophil % 70.8 % (47-70); Platelet Count 200 K/mm3 (150-450); RBC Distribution Width CV 13.2 % (11.6-14.6); Red Blood Count 3.94 M/mm3 (4.2-5.4); White Blood Count 10.5 K/mm3 (4.4-11.0)
[2023-05-08 21:11] LABS: Bacteria 0 SEEN /hpf (None Seen); Mucous, Urine 0 SEEN /hpf (<or=2+)
[2023-05-08 21:12] LABS: Color, Urine Yellow (Yellow); Glucose, Dipstick 100 mg/dl (Normal); Ketone-Dipstick Negative (Negative); Leukocyte Esterase-Dipstick 25 /ul (Negative); Nitrite-Dipstick Negative (Negative); Occult Blood-Urine 250 /ul (Negative); Protein-Dipstick 30 mg/dl (Negative); Specific Gravity, Urine 1.015 (1.002-1.030); Urine Bilirubin Dipstick Negative (Negative); Urine Clarity Clear (Clear); Urine Urobilinogen Normal (Normal)
[2023-05-08 21:21] LABS: Red Blood Cells-Urine 10-25 SEEN /hpf (0-5)
[2023-05-08 21:22] LABS: Squamous Epithelial Cells - UA 0-5 SEEN /hpf (5-10); White Blood Cells 0-5 SEEN /hpf (0-5)
[2023-05-08 21:25] LABS: AST(SGOT) 19 U/L (15-37); Alanine Aminotransfer ALT/SGPT 18 U/L (13-56); Albumin, Serum 3.6 g/dL (3.2-5.0); Alkaline Phosphatase 68 U/L (45-117); Anion Gap 6 (5-15); BUN 30 mg/dL (7-18); BUN/Creat Ratio 18.3 RATIO (10-20); Calcium,Total 9.3 mg/dL (8.5-10.1); Chloride 110 mmol/L (98-107); Creatinine, Serum 1.64 mg/dL (0.55-1.02); EST Glomerular Filtration Rate 33 mL/min (>60); Est Glom Filt Rate - Afr Amer 40 mL/min (>60); Globulin 3.7 g/dL (2.2-4.2); Glucose 234 mg/dL (74-106); Potassium 4.5 mmol/L (3.5-5.1); Protein, Total 7.3 g/dL (6.4-8.2); Sodium Level 138 mmol/L (136-145)
--- NOTE | 2023-05-08 21:57 | CT_ITS ---
EXAM: CT Abdomen And Pelvis W/O Contrast Injection HISTORY: Kidney Stone TECHNIQUE: Routine protocol CT abdomen and pelvis. IV Contrast: None.. Oral contrast: None. RADIATION DOSAGE (If Supplied By Facility): CTDIvol = ( 8.70 ) mGy, DLP = ( 406.62 ) mGycm Individualized dose optimization techniques were used for this CT. COMPARISON: CT abdomen and pelvis 07/31/2013. LIMITATIONS: None. FINDINGS: LOWER CHEST: Included lung bases are clear. Small hiatal hernia. LIVER: Grossly unremarkable. GALLBLADDER AND BILIARY TREE: Gallbladder surgically absent. PANCREAS: Grossly unremarkable. SPLEEN: Grossly unremarkable. ADRENAL GLANDS: Grossly unremarkable. KIDNEYS AND URETERS: There is a 7 mm calculus in the mid left ureter. The proximal left ureter is dilated with moderate left hydronephrosis, perinephric and periureteral stranding. No other calculi demonstrated. No hydronephrosis on the right. PERITONEUM: No free air. No free fluid. BOWEL: No bowel obstruction. Surgical clips in the right lower abdomen. APPENDIX: Not identified. VESSELS: Abdominal aorta is normal caliber. REPRODUCTIVE ORGANS: Uterus not identified. URINARY BLADDER: Grossly unremarkable. ABDOMINAL WALL: Unremarkable. BONES: No acute abnormalities. Scoliosis and degenerative changes lumbar spine. CT/Abdomen/Pelvis without Cont IMPRESSION: Mid left ureteral calculus 7 mm with moderate left hydroureteronephrosis. Electronically Signed: Shweta Perez MD at 22:59 EST ,
[2023-05-08] MEDS: Ondansetron 4 MG/2 ML Vial IV (22:08)
[2023-05-08] MEDS: Morphine 4 MG/ML Syringe IV (22:10)
[2023-05-08] MEDS: Ketorolac 15 MG/ML Vial IV (22:10)
--- OUTSIDE RECORDS SUMMARY | 2023-05-08 22:21 | XMS RPT_ITS | CCD ---
Author Name Unknown Address [id number] [place] [address] Organization [facility] Care Team Providers Care Floating Operator Name Role Phone Ashli Silva PA-C Primary Care Provider [phone] Colby Ng Unavailable [phone] ANGE GROVER Referring Unavailable SILVA, M WILBERT Primary Care Unavailable ZOHREH MAHER Attending Unavailable SILVA, Ashli ATKINS Primary Care Unavailable SILVA, M WILBERT Primary Care Unavailable SOPHIE MEDRANO Attending Unavailable SILVA, M WILBERT Primary Care Unavailable SILVA, M WILBERT Attending Unavailable SILVA, M WILBERT Primary Care Unavailable SILVA, M WILBERT Referring Unavailable OLGA JOSHUA Attending Unavailable TERRELL GREEN Attending Unavailable SILVA, Ashli SYKESWILBERT Primary Care Unavailable SILVA, M WILBERT Referring Unavailable SILVA, M WILBERT Primary Care Unavailable URSULA GARDNER Attending Unavailable SILVA, M WILBERT Primary Care Unavailable SILVA M WILBERT Attending Unavailable SILVA M WILBERT Primary Care Unavailable SILVA, M WILBERT Referring Unavailable TOO MEJIA JR Attending Unavailable SILVA, M WILBERT Primary Care Unavailable SILVA, M WILBERT Primary Care Unavailable SILVA, M WILBERT Attending Unavailable SILVA, M WILBERT Primary Care Unavailable SILVA, M WILBERT Primary Care Unavailable SILVA, M WILBERT Referring Unavailable SILVA, M WILBERT Primary Care Unavailable SILVA, M WILBERT Primary Care Unavailable NAKUL BUSTOS Referring Unavailable SILVA, M WILBERT Primary Care Unavailable SILVA, M WILBERT Referring Unavailable SILVA, M WILBERT Primary Care Unavailable URSULA GARDNER Attending Unavailable SILVA, M WILBERT Primary Care Unavailable SILVA, M WILBERT Attending Unavailable SILVA, M WILBERT Primary Care Unavailable SILVA, M WILBERT Attending Unavailable Ashli SILVA Primary Care Unavailable SILVAAshli Referring Unavailable SILVA, Ashli ATKINS Primary Care Unavailable SILVA, M WILBERT Referring Unavailable SILVA, Ashli ATKINS Primary Care Unavailable SILVA, Ashli ATKINS Referring Unavailable SILVA, Ashli ATKINS Primary Care Unavailable Ashli SILVA Attending Unavailable Ashli SILVA Primary Care Unavailable Ashli SILVA Attending Unavailable SILVA, Ashli ATKINS Primary Care Unavailable JACKELINE VARGAS Attending Unavailable SILVA, Ashli ATKINS Primary Care Unavailable SILVA, M WILBERT Referring Unavailable SILVA, Ashli ATKINS Attending Unavailable SILVA, M WILBERT Primary Care Unavailable Allergies Allergy Classification Reported Allergen(s) Allergy Type Date of Onset Reaction(s) Facility (20 sources) Ampicillin; Translations: [AMPICILLIN] Drug Allergy 12-18-[address] [facility] Work Phone: (20 sources) Doxycycline; Translations: [DOXYCYCLINE] Drug Allergy 12-18-[address] [facility] Work Phone: (10 sources) Glucocorticoid; Translations: [CORTICOSTEROIDS (GLUCOCORTICOIDS)] Drug Intolerance 12-13-19 14 Other: See Comments [facility] Work Phone: (20 sources) moxifloxacin; Translations: [MOXIFLOXACIN HCL] Drug Allergy 09-22-19 [address] Status [address] [facility] Work Phone: (20 sources) Sulfamethoxazole / Trimethoprim; Translations: [SULFAMETHOXAZOLE-T RIMETHOPRIM] Drug Allergy 03-05-[address] [facility] (20 sources) Glucocorticoid preparation Drug Intolerance 12-13-19 14 Other: See Comments [facility] Work Phone: Medications Current Medications Medication Drug Class(es) Dates Sig (Normalized) Sig (Original) alendronic acid 70 mg oral tablet (8 sources) Bisphosphonate Start: 04-01-2021 End: 11-08-2021 take 1 tablet by mouth every week alendronate (FOSAMAX) 70 mg tablet Indications: Osteoporosis, unspecified osteoporosis type, unspecified pathological fracture presence Take 1 tablet by mouth one time a week. Take with a full glass of water, on an empty stomach; do NOT lie down for 30minutes. 12 tablet 3 04/01/2021 11/08/2021 Discontinued (Course of therapy completed) Completed/Discontinued Medications Medication Drug Class(es) Dates Sig (Normalized) Sig (Original) 8 hr acetaminophen 650 mg extended release oral tablet (20 sources) take 1 tablet by mouth every eight hours as needed acetaminophen 650 mg CR tablet Take 650 mg by mouth every 8 hours as needed. 0 Active Problems Active Problems Problem Classification Problem Date Documented Da te Episodic/Chronic Abdominal pain (12 sources) Lower abdominal pain; Translations: [Lower abdominal pain, unspecified] Onset: 04-03-2023 Episodic Acquired foot deformities (20 sources) Acquired hallux valgus; Translations: [Hallux valgus (acquired), unspecified foot] Onset: 09-05-2011 06-06-2017 Chronic Acute bronchitis (1 source) Viral bronchitis; Translations: [Acute bronchitis due to other specified organisms] Episodic Anxiety disorders (20 sources) Mixed anxiety and depressive disorder; Translations: [Other specified anxiety disorders] Onset: 04-18-2010 Chronic Asthma (20 sources) Uncomplicated moderate persistent asthma; Translations: [Moderate persistent asthma, uncomplicated] Onset: 10-18-2020 10-18-2020 Chronic Chronic kidney disease (20 sources) Chronic kidney disease stage 3A ; Translations: [Stage 3a chronic kidney disease] Onset: 01-15-2020 01-15-2020 Chronic Chronic kidney disease (2 sources) Chronic kidney disease; Translations: [Stage 3a chronic kidney disease (HCC)] Onset: 01-15-2020 Chronic obstructive pulmonary disease and bronchiectasis (1 source) Bronchitis; Translations: [Bronchitis, not specified as acute or chronic] Episodic Diabetes mellitus with complications (20 sources) Type 2 diabetes mellitus; Translations: [Type 2 diabetes mellitus with other diabetic neurological complication] Onset: 04-18-2010 03-21-2021 Chronic Diabetes mellitus without complication (1 source) Diabetes mellitus without complication; Translations: [Type 2 diabetes mellitus with stage 3a chronic kidney disease, without long-term current use of insulin (HCC)] Onset: 05-10-2022 Disorders of lipid metabolism (20 sources) Hyperlipidemia; Translations: [Hyperlipidemia, unspecified] Onset: 04-18-2010 12-01-2014 Chronic Genitourinary symptoms and ill-defined conditions (20 sources) Urge incontinence of urine; Translations: [Urge incontinence] Onset: 11-06-2019 11-06-2019 Chronic Hypertension with complications and secondary hypertension (20 sources) Hypertensive renal disease; Translations: [Hypertensive chronic kidney disease with stage 1 through stage 4 chronic kidney disease, or unspecified chronic kidney disease] Onset: 05-10-2022 05-10-2022 Chronic Immunizations and screening for infectious disease (2 sources) Needs influenza immunization; Translations: [Encounter for immunization] Episodic Infective arthritis and osteomyelitis (except that caused by tuberculosis or sexually transmitted disease) (20 sources) Osteomyelitis; Translations: [Osteomyelitis, unspecified] Onset: 09-25-2017 09-25-2017 Chronic Menopausal disorders (20 sources) Atrophic vaginitis; Translations: [Postmenopausal atrophic vaginitis] Onset: 05-29-2011 05-29-2011 Chronic Mood disorders (16 sources) Recurrent depression; Translations: [Major depressive disorder, recurrent, unspecified] Onset: 07-25-2022 Chronic Nausea and vomiting (4 sources) Nausea; Translations: [Nausea] Episodic Nutritional deficiencies (20 sources) Vitamin D deficiency; Translations: [Vitamin D deficiency, unspecified] Onset: 10-07-2012 10-07-2012 Chronic Osteoarthritis (2 sources) Localized, primary osteoarthritis of the wrist; Translations: [Primary osteoarthritis, right wrist] Chronic Osteoporosis (20 sources) Osteoporosis; Translations: [Age-related osteoporosis without current pathological fracture] Onset: 04-18-2010 02-23-2021 Chronic Other acquired deformities (20 sources) Scoliosis deformity of spine; Translations: [Scoliosis, unspecified] Onset: 09-06-2013 09-06-2013 Chronic Other aftercare (1 source) Drug therapy finding; Translations: [Other termite control representative (current) drug therapy] Episodic Other and unspecified benign neoplasm (1 source) Tubular adenoma ; Translations: [Benign neoplasm, unspecified site] Episodic Other and unspecified benign neoplasm (1 source) Serrated polyp of colon; Translations: [Polyp of colon] Episodic Other and unspecified benign neoplasm (1 source) Dysplasia of colon; Translations: [Polyp of colon] Episodic Other and unspecified benign neoplasm (1 source) Personal history of colonic polyps; Translations: [History of colonic polyps] Onset: 04-03-2023 Episodic Other and unspecified benign neoplasm (1 source) Polyp of colon; Translations: [Dysplastic colon polyp] Onset: 04-03-2023 Episodic Other female genital disorders (20 sources) Dyspareunia; Translations: [Dyspareunia] Onset: 08-14-2012 08-14-2012 Chronic Other gastrointestinal disorders (5 sources) Abdominal bloating; Translations: [Abdominal distension (gaseous)] Episodic Other gastrointestinal disorders (2 sources) Constipation; Translations: [Constipation, unspecified] Episodic Other gastrointestinal disorders (4 sources) Chronic constipation; Translations: [Other constipation] Episodic Other gastrointestinal disorders (1 source) Abdominal distension (gaseous); Translations: [Abdominal bloating] Onset: 04-03-2023 Episodic Other hereditary and degenerative nervous system conditions (20 sources) Essential tremor; Translations: [Essential tremor] Onset: 08-13-2017 08-13-2017 Chronic Other hereditary and degenerative nervous system conditions (1 source) Essential tremor; Translations: [Essential tremor] Onset: 08-13-2017 Chronic Other lower respiratory disease (2 sources) Cough; Translations: [Acute cough] Episodic Other lower respiratory disease (1 source) Lower respiratory tract infection; Translations: [Unspecified acute lower respiratory infection] Episodic Other non-traumatic joint disorders (1 source) Chronic pain of right upper limb; Translations: [Pain in right wrist] Episodic Other non-traumatic joint disorders (1 source) Pain of right wrist; Translations: [Pain in right wrist] Episodic Other non-traumatic joint disorders (2 sources) Pain in right knee; Translations: [Pain in joint, lower leg] Episodic Other non-traumatic joint disorders (1 source) Pain of left wrist; Translations: [Pain in left wrist] Episodic Other non-traumatic joint disorders (1 source) Hip pain; Translations: [Pain in right hip] Episodic Other non-traumatic joint disorders (1 source) Multiple joint pain; Translations: [Pain in unspecified joint] Episodic Other upper respiratory disease (20 sources) Chronic rhinitis; Translations: [Chronic rhinitis] Onset: 11-08-2021 Chronic Residual codes; unclassified (1 source) Did not attend; Translations: [No-show for appointment] Episodic Residual codes; unclassified (1 source) Influenza-like symptoms; Translations: [Other general symptoms and signs] Episodic Residual codes; unclassified (1 source) Left before being seen; Translations: [Procedure and treatment not carried out due to patient leaving prior to being seen by health care provider] Episodic Residual codes; unclassified (2 sources) Tobacco use; Translations: [Tobacco use] Onset: 06-06-2010 Episodic Spondylosis; intervertebral disc disorders; other back problems (20 sources) Degeneration of intervertebral disc; Translations: [Degenerative disc disease] Onset: 08-26-2013 08-26-2013 Chronic Substance-related disorders (2 sources) Tobacco dependence syndrome; Translations: [Nicotine dependence, unspecified, uncomplicated] Chronic Unclassified (1 source) Acute cough; Translations: [Acute cough] Onset: 07-01-2022 Viral infection (1 source) Disease caused by 2019-nCoV; Translations: [COVID-19] Episodic Past or Other Problems Problem Classification Problem Date Documented Da te Episodic/Chronic Conditions associated with dizziness or vertigo (3 sources) Benign paroxysmal positional vertigo; Translations: [Benign paroxysmal vertigo, unspecified ear] Onset: 07-25-2022 Episodic Diseases of mouth; excluding dental (9 sources) Mass of right parotid gland; Translations: [Other diseases of salivary glands] Onset: 04-14-2019 04-14-2019 Episodic Fracture of upper limb (20 sources) Fracture of distal end of right radius; Translations: [Unspecified fracture of the lower end of right radius, initial encounter for closed fracture] Onset: 01-15-2021 04-01-2021 Episodic Genitourinary symptoms and ill-defined conditions (3 sources) Dysuria; Translations: [Dysuria] Onset: 09-12-2022 Episodic Intracranial injury (17 sources) Concussion injury of brain; Translations: [Concussion without loss of consciousness, sequela] Onset: 07-25-2022 Episodic Other connective tissue disease (20 sources) Fibromyalgia; Translations: [Fibromyalgia] Onset: 04-18-2010 04-18-2010 Episodic Other connective tissue disease (20 sources) Pain in limb; Translations: [Pain in unspecified limb] Onset: 03-31-2011 03-31-2011 Episodic Other connective tissue disease (20 sources) Adductor tendinitis; Translations: [Other specified enthesopathies of unspecified lower limb, excluding foot] Onset: 05-16-2022 Episodic Other connective tissue disease (1 source) Fibromyalgia; Translations: [Fibromyalgia] Onset: 04-18-2010 Episodic Other connective tissue disease (1 source) Other specified enthesopathies of unspecified lower limb, excluding foot; Translations: [Adductor tendonitis] Onset: 05-16-2022 Episodic Other gastrointestinal disorders (1 source) Other constipation; Translations: [Chronic constipation] Onset: 09-12-2022 Episodic Other nervous system disorders (1 source) Other abnormalities of gait and mobility; Translations: [Balance disorder] Onset: 12-28-2022 Episodic Other non-traumatic joint disorders (1 source) Pain in right hip; Translations: [Bilateral hip pain] Onset: 09-12-2022 Episodic Other non-traumatic joint disorders (1 source) Pain in left hip; Translations: [Bilateral hip pain] Onset: 09-12-2022 Episodic Other non-traumatic joint disorders (1 source) Pain in unspecified joint; Translations: [Polyarthralgia] Onset: 09-12-2022 Episodic Other nutritional; endocrine; and metabolic disorders (20 sources) H/O: thyroid disorder; Translations: [Personal history of other endocrine, nutritional and metabolic disease] Onset: 01-15-2020 01-15-2020 Episodic Other nutritional; endocrine; and metabolic disorders (1 source) Personal history of other endocrine, nutritional and metabolic disease; Translations: [History of thyroid disease] Onset: 01-15-2020 Episodic Other screening for suspected conditions (not mental disorders or infectious disease) (20 sources) Patient encounter status; Translations: [Encounter for screening for malignant neoplasm of colon] Onset: 03-08-2022 Episodic Residual codes; unclassified (20 sources) Tobacco user; Translations: [Tobacco use] Onset: 06-06-2010 06-06-2010 Episodic Residual codes; unclassified (1 source) Procedure and treatment not carried out due to patient leaving prior to being seen by health care provider; Translations: [Patient left without being seen] Onset: 07-24-2022 Episodic Spondylosis; intervertebral disc disorders; other back problems (20 sources) Chronic low back pain; Translations: [Chronic low back pain] Onset: 04-18-2010 04-18-2010 Episodic Sprains and strains (20 sources) Sprain of shoulder; Translations: [Unspecified sprain of right shoulder joint, subsequent encounter] Onset: 05-11-2021 05-11-2021 Episodic Results Test Name Value Interpretation Reference Range Facil ity Vital Signs Date Time Vital Sign Value Performing Clinician Jasmeet manjarrez 09-12-2022 11:24-0400 Body height 160 cm NA Silva PA-C Work Phone: [facility] 09-12-2022 11:24-0400 Body weight 70.4 kg NA Silva PA-C Work Phone: [facility] 09-12-2022 11:24-0400 Diastolic blood pressure 60 mm[Hg] NA Silva PA-C Work Phone: [facility] 09-12-2022 11:24-0400 Heart rate 74 /min NA Silva PA-C Work Phone: [facility] 09-12-2022 11:24-0400 SaO2% (BldA) [Mass fraction] 96 % NA Silva PA-C Work Phone: [facility] 09-12-2022 11:24-0400 Systolic blood pressure 102 mm[Hg] NA Silva PA-C Work Phone: [facility] 07-25-2022 13:09-0400 Body weight 71.22 kg NA Silva PA-C Work Phone: [facility] 07-25-2022 13:09-0400 Diastolic blood pressure 66 mm[Hg] NA Silva PA-C Work Phone: [facility] 07-25-2022 13:09-0400 Heart rate 77 /min NA Silva PA-C Work Phone: [facility] 07-25-2022 13:09-0400 SaO2% (BldA) [Mass fraction] 97 % NA Silva PA-C Work Phone: [facility] 07-25-2022 13:09-0400 Systolic blood pressure 120 mm[Hg] NA Silva PA-C Work Phone: [facility] 07-14-2022 14:34-0400 Body weight 72.58 kg NA Silva PA-C Work Phone: [facility] 07-14-2022 14:34-0400 Diastolic blood pressure 68 mm[Hg] NA Silva PA-C Work Phone: [facility] 07-14-2022 14:34-0400 Heart rate 74 /min NA Silva PA-C Work Phone: [facility] 07-14-2022 14:34-0400 Respiratory rate 16 /min NA Silva PA-C Work Phone: [facility] 07-14-2022 14:34-0400 SaO2% (BldA) [Mass fraction] 94 % NA Silva PA-C Work Phone: [facility] 07-14-2022 14:34-0400 Systolic blood pressure 120 mm[Hg] NA Silva PA-C Work Phone: [facility] 07-01-2022 08:45-0400 Body temperature 99.1 [degF] Ange Praisler-Wood SYSTEM SUPPORT ADMINISTRATOR.POLICY CHANGE CLERK Work Phone: [facility] 07-01-2022 08:45-0400 Body weight 72.21 kg Ange Praisler-[employer] SYSTEM SUPPORT ADMINISTRATOR.POLICY CHANGE CLERK Work Phone: [facility] 07-01-2022 08:45-0400 Diastolic blood pressure 82 mm[Hg] Ange Praisler-[employer] SYSTEM SUPPORT ADMINISTRATOR.POLICY CHANGE CLERK Work Phone: [facility] 07-01-2022 08:45-0400 Heart rate 84 /min Ange Praisler-Wood SYSTEM SUPPORT ADMINISTRATOR.POLICY CHANGE CLERK Work Phone: [facility] 07-01-2022 08:45-0400 Respiratory rate 20 /min Ange Praisler-[employer] SYSTEM SUPPORT ADMINISTRATOR.POLICY CHANGE CLERK Work Phone: [facility] 07-01-2022 08:45-0400 SaO2% (BldA) [Mass fraction] 97 % Ange Praisler-[employer] SYSTEM SUPPORT ADMINISTRATOR.POLICY CHANGE CLERK Work Phone: [facility] 07-01-2022 08:45-0400 Systolic blood pressure 126 mm[Hg] Ange Praisler-[employer] SYSTEM SUPPORT ADMINISTRATOR.POLICY CHANGE CLERK Work Phone: [facility] 06-15-2022 09:10-0400 Body temperature 98.49 [degF] NA Silva PA-C Work Phone: [facility] 06-15-2022 09:10-0400 Body weight 72.58 kg NA Silva PA-C Work Phone: [facility] 06-15-2022 09:10-0400 Diastolic blood pressure 70 mm[Hg] NA Silva PA-C Work Phone: [facility] 06-15-2022 09:10-0400 Heart rate 78 /min NA Silva PA-C Work Phone: [facility] 06-15-2022 09:10-0400 Respiratory rate 20 /min NA Silva PA-C Work Phone: [facility] 06-15-2022 09:10-0400 SaO2% (BldA) [Mass fraction] 96 % NA Silva PA-C Work Phone: [facility] 06-15-2022 09:10-0400 Systolic blood pressure 126 mm[Hg] NA Silva PA-C Work Phone: [facility] 05-12-2022 11:15-0500 Body weight 72.12 kg NA Silva PA-C Work Phone: [facility] 05-12-2022 11:15-0500 Diastolic blood pressure 66 mm[Hg] NA Silva PA-C Work Phone: [facility] 05-12-2022 11:15-0500 Heart rate 76 /min NA Silva PA-C Work Phone: [facility] 05-12-2022 11:15-0500 Respiratory rate 16 /min NA Silva PA-C Work Phone: [facility] 05-12-2022 11:15-0500 SaO2% (BldA) [Mass fraction] 97 % NA Silva PA-C Work Phone: [facility] 05-12-2022 11:15-0500 Systolic blood pressure 108 mm[Hg] NA Silva PA-C Work Phone: [facility] 03-03-2022 10:18-0500 Diastolic blood pressure 66 mm[Hg] Deepa Bravo MD Work Phone: [facility] 03-03-2022 10:18-0500 Heart rate 56 /min Deepa Bravo MD Work Phone: [facility] 03-03-2022 10:18-0500 Respiratory rate 16 /min Deepa Bravo MD Work Phone: [facility] 03-03-2022 10:18-0500 SaO2% (BldA) [Mass fraction] 94 % Deepa Bravo MD Work Phone: [facility] 03-03-2022 10:18-0500 Systolic blood pressure 125 mm[Hg] Deepa Bravo MD Work Phone: [facility] 03-03-2022 08:46-0500 Body temperature 97.11 [degF] Deepa Bravo MD Work Phone: [facility] 02-13-2022 09:25-0500 Body weight 70.31 kg NA Silva PA-C Work Phone: [facility] 02-13-2022 09:25-0500 Diastolic blood pressure 64 mm[Hg] NA Silva PA-C Work Phone: [facility] 02-13-2022 09:25-0500 Heart rate 84 /min NA Silva PA-C Work Phone: [facility] 02-13-2022 09:25-0500 Respiratory rate 16 /min NA Silva PA-C Work Phone: [facility] 02-13-2022 09:25-0500 SaO2% (BldA) [Mass fraction] 98 % NA Silva PA-C Work Phone: [facility] 02-13-2022 09:25-0500 Systolic blood pressure 110 mm[Hg] NA Silva PA-C Work Phone: [facility] 01-05-2022 14:12-0400 Body weight 71.22 kg NA Silva PA-C Work Phone: [facility] 01-05-2022 14:12-0400 Diastolic blood pressure 60 mm[Hg] NA Silva PA-C Work Phone: [facility] 01-05-2022 14:12-0400 Heart rate 71 /min NA Silva PA-C Work Phone: [facility] 01-05-2022 14:12-0400 Respiratory rate 16 /min NA Silva PA-C Work Phone: [facility] 01-05-2022 14:12-0400 SaO2% (BldA) [Mass fraction] 97 % NA Silva PA-C Work Phone: [facility] 01-05-2022 14:12-0400 Systolic blood pressure 118 mm[Hg] NA Silva PA-C Work Phone: [facility] 12-26-2021 09:10-0400 Body height 160 cm Marcus Barnes MD Work Phone: [facility] 12-26-2021 09:10-0400 Body weight 71.22 kg Marcus Barnes MD Work Phone: [facility] 12-20-2021 09:29-0400 Body height 160 cm Deepa Bravo MD Work Phone: [facility] 12-20-2021 09:29-0400 Body temperature 97.9 [degF] Deepa Bravo MD Work Phone: [facility] 12-20-2021 09:29-0400 Body weight 71.22 kg Deepa Bravo MD Work Phone: [facility] 12-20-2021 09:29-0400 Diastolic blood pressure 62 mm[Hg] Deepa Bravo MD Work Phone: [facility] 12-20-2021 09:29-0400 Heart rate 82 /min Deepa Bravo MD Work Phone: [facility] 12-20-2021 09:29-0400 SaO2% (BldA) [Mass fraction] 95 % Deepa Bravo MD Work Phone: [facility] 12-20-2021 09:29-0400 Systolic blood pressure 106 mm[Hg] Deepa Bravo MD Work Phone: [facility] 11-08-2021 09:02-0400 Body weight 70.31 kg NA Silva PA-C Work Phone: [facility] 11-08-2021 09:02-0400 Diastolic blood pressure 74 mm[Hg] NA Silva PA-C Work Phone: [facility] 11-08-2021 09:02-0400 Heart rate 78 /min NA Silva PA-C Work Phone: [facility] 11-08-2021 09:02-0400 Respiratory rate 18 /min NA Silva PA-C Work Phone: [facility] 11-08-2021 09:02-0400 SaO2% (BldA) [Mass fraction] 95 % NA Silva PA-C Work Phone: [facility] 11-08-2021 09:02-0400 Systolic blood pressure 120 mm[Hg] NA Silva PA-C Work Phone: [facility] 09-19-2021 08:03-0400 Body weight 70.31 kg NA Silva PA-C Work Phone: [facility] 09-19-2021 08:03-0400 Diastolic blood pressure 60 mm[Hg] NA Silva PA-C Work Phone: [facility] 09-19-2021 08:03-0400 Heart rate 66 /min NA Silva PA-C Work Phone: [facility] 09-19-2021 08:03-0400 Respiratory rate 20 /min NA Silva PA-C Work Phone: [facility] 09-19-2021 08:03-0400 SaO2% (BldA) [Mass fraction] 96 % NA Silva PA-C Work Phone: [facility] 09-19-2021 08:03-0400 Systolic blood pressure 110 mm[Hg] NA Silva PA-C Work Phone: [facility] 08-08-2021 08:38-0400 Body temperature 98.01 [degF] NA Silva PA-C Work Phone: [facility] 08-08-2021 08:38-0400 Body weight 70.31 kg NA Silva PA-C Work Phone: [facility] 08-08-2021 08:38-0400 Diastolic blood pressure 64 mm[Hg] NA Silva PA-C Work Phone: [facility] 08-08-2021 08:38-0400 Heart rate 67 /min NA Silva PA-C Work Phone: [facility] 08-08-2021 08:38-0400 SaO2% (BldA) [Mass fraction] 96 % NA Silva PA-C Work Phone: [facility] 08-08-2021 08:38-0400 Systolic blood pressure 112 mm[Hg] NA Silva PA-C Work Phone: [facility] Encounters Encounter Date Encounter Type Care Provider Facility Start: 04-19-2023 End: 04-19-2023 ambulatory Ashli SILVA Facility:[facility] Start: 04-12-2023 End: 04-12-2023 ambulatory Ashli SILVA Facility:[facility] Start: 04-03-2023 End: 04-04-2023 ambulatory Ashli SILVA Facility:[facility] Start: 03-15-2023 End: 03-15-2023 ambulatory ZOHREH MAHER Facility:[facility] Start: 03-05-2023 Telephone encounter Ashli REYNOSO-Nivia Work Phone: [facility] [place] Procedures Date Procedure Procedure Detail Performing Clinician Start: 11-28-2022 Radex toe minimum 2 views Nakul Bustos APRN.CNP Work Phone: Start: 10-18-2022 Diagnostic mammograp hy computer-aided detcj bi Ashli REYNOSO-C Work Phone: Start: 09-12-2022 Urnls dip stick/tabl et rgnt auto w/o microscopy Ashli REYNOSO-C Work Phone: Start: 05-10-2022 End: 05-10-2022 Mammography Ashli Wilbert Gonzáles Work Phone: Start: 04-07-2022 Ct abdomen & pelvis w/contrast material Ashli Wilbert DIALLOC Work Phone: Start: 03-03-2022 Level iv surg pathol ogy gross&microscopic exam Deepa Bravo MD Work Phone: Start: 03-03-2022 Colonoscopy flx dx w /collj spec when pfrmd Deepa Bravo MD Work Phone: Start: 03-03-2022 Colonoscopy Sophie Trisha REYNOSO-C Work Phone: Start: 02-13-2022 INFLUENZA SEASONAL QUADRIVALENT HIGH DOSE AGE 65+ Ashli Wilbert REYNOSO-C Work Phone: Start: 01-05-2022 HEMOCCULT SINGLE B/O Ashli Wilbert REYNOSO-C Work Phone: Start: 12-15-2021 Hemoglobin A1c/Hemoglobin.total in Blood [facility] Provider Start: 12-02-2021 Gastric emptying doretha ging study Ashli Wilbert REYNOSO-C Work Phone: Start: 02-24-2021 Mammography LEENA Ricardo DIALLOC Work Phone: Plan of Treatment Date Care Activity Detail Author Start: 12-27-2023 Glaucoma screening Dilated Retinal E xam [facility] Start: 12-27-2023 Hepatitis C antibody , confirmatory test Dilated Retinal Exam [facility] Start: 12-15-2023 Annual PCP Team Professor Of Geography elli Disease Visit Annual PCP Team Chronic Disease Visit [facility] Start: 09-20-2023 Complete blood count Hemoglobin/Rogelio tocrit [facility] Start: 09-20-2023 Creatinine measurement Serum Creatin ine [facility] Start: 09-20-2023 HEMOGLOBIN/HEMATOCRIT HEMOGLOBIN/HEM ATOCRIT [facility] Start: 09-20-2023 Hepatitis B screening URINE AL BUMIN:CREATININE RATIO [facility] Start: 09-20-2023 Hepatitis B surface antibody level LDL CHOLESTEROL [facility] Start: 09-20-2023 SERUM CREATININE SERUM CREATININE Cl [facility] Start: 09-13-2023 3 comp foot exam completed DIABETIC FOOT EXAM [facility] Start: 09-13-2023 ANNUAL PCP TEAM DIRECTOR OF MATERIALS MANAGEMENT ELLI DISEASE VISIT ANNUAL PCP TEAM CHRONIC DISEASE VISIT [facility] Start: 09-13-2023 Diabetic foot examination Diabetic F oot Exam [facility] Start: 07-26-2023 ANNUAL PCP TEAM DIRECTOR OF MATERIALS MANAGEMENT ELLI DISEASE VISIT ANNUAL PCP TEAM CHRONIC DISEASE VISIT [facility] Start: 07-25-2023 ANNUAL PCP TEAM DIRECTOR OF MATERIALS MANAGEMENT ELLI DISEASE VISIT ANNUAL PCP TEAM CHRONIC DISEASE VISIT [facility] Start: 07-15-2023 ANNUAL PCP TEAM DIRECTOR OF MATERIALS MANAGEMENT ELLI DISEASE VISIT ANNUAL PCP TEAM CHRONIC DISEASE VISIT [facility] Start: 07-04-2023 ANNUAL PCP TEAM DIRECTOR OF MATERIALS MANAGEMENT ELLI DISEASE VISIT ANNUAL PCP TEAM CHRONIC DISEASE VISIT [facility] Start: 06-16-2023 ANNUAL PCP TEAM DIRECTOR OF MATERIALS MANAGEMENT ELLI DISEASE VISIT ANNUAL PCP TEAM CHRONIC DISEASE VISIT [facility] Start: 06-16-2023 Urine microalbumin profile [facility] Immunizations Immunization Date Immunization Notes Care Provider Fa cility 02-13-2022 influenza, high-dose , quadrivalent vaccine (FLUZONE HIGH DOSE QUADRIVALENT) NA Silva PA-C Work Phone: [facility] 02-13-2022 influenza virus vaccine, unspecified formulation Xr Mob Work Phone: [facility] 08-19-2020 COVID-19 vaccine, fu ll dose (MODERNA) NA Silva PA-C Work Phone: [facility] 07-22-2020 COVID-19 vaccine, fu ll dose (MODERNA) NA Silva PA-C Work Phone: [facility] 01-15-2020 influenza, high-dose , quadrivalent vaccine (FLUZONE HIGH DOSE QUADRIVALENT) NA Silva PA-C Work Phone: [facility] 01-15-2020 pneumococcal polysaccharide vaccine, 23 valent NA Silva PA-C Work Phone: [facility] 01-15-2020 zoster vaccine recombinant NA Silva PA-C Work Phone: [facility] 08-08-2019 pneumococcal conjuga te vaccine, 13 valent NA Silva PA-C Work Phone: [facility] 08-08-2019 zoster vaccine recombinant NA Silva PA-C Work Phone: [facility] 01-02-2019 influenza, high dose seasonal, preservative-free NA Silva PA-C Work Phone: [facility] Work Phone: 03-06-2018 Influenza, injectabl e, Madin Ani Canine Kidney, preservative free, quadrivalent NA Silva PA-C Work Phone: [facility] 01-12-2017 influenza, seasonal, injectable NA Silva PA-C Work Phone: [facility] 01-12-2017 influenza, seasonal, injectable, preservative free NA Silva PA-C Work Phone: [facility] 01-11-2016 influenza, injectabl e, quadrivalent, contains preservative NA Silva PA-C Work Phone: [facility] 12-25-2015 influenza, seasonal, injectable, preservative free NA Silva PA-C Work Phone: [facility] 02-11-2015 influenza, injectabl e, quadrivalent, contains preservative NA Silva PA-C Work Phone: [facility] 02-11-2015 influenza, seasonal, injectable NA Silva PA-C Work Phone: [facility] 01-29-2014 influenza, seasonal, injectable NA Silva PA-C Work Phone: [facility] 09-06-2013 pneumococcal polysaccharide vaccine, 23 valent NA Silva PA-C Work Phone: [facility] 03-04-2012 influenza virus vaccine, unspecified formulation NA Silva PA-C Work Phone: [facility] 02-23-2011 influenza virus vaccine, unspecified formulation NA Silva PA-C Work Phone: [facility] 05-24-2008 pneumococcal polysaccharide vaccine, 23 valent NA Silva PA-C Work Phone: [facility] NEGATED: Highlighted row has not occurred!05-27-2021 influenza, high-dose, quadrivalent vaccine (FLUZONE HIGH DOSE QUADRIVALENT) LEENA Silva PA-C Work Phone: [facility] Payers Date Payer Category Payer Medicare [id number] 2017 Medicaid [id number] 2017 Medicaid [id number] 2017 Medicare [id number] 2017 Medicare [id number] 2017 Medicare [id number] Social History Date Type Detail Facility Start: 11-27-2019 End: 11-08-2021 Tobacco smoking status RIIS Smokes tobacco daily [facility] History of tobacco use Cigarette Smoker C [facility] Start: 11-27-2019 End: 09-12-2022 Cigarettes smoked current (pack per day) - Reported [address] [facility] Start: 11-27-2019 End: 11-08-2021 Tobacco use and exposure Smokeless tobacco non-user [facility] Start: 06-01-2021 End: 12-15-2022 Alcohol intake Current non-drinker of alcohol (finding) [facility] Start: 02-02-2020 End: 04-03-2022 History SDOH Alcohol Frequency [address] [facility] Start: 02-02-2020 History SDOH Alcohol Std Drinks [address] [facility] Start: 08-08-2019 End: 01-13-2020 History SDOH Social Connections Phone [address] [facility] Start: 01-13-2020 End: 04-03-2022 History SDOH Social Connections Get Together [address] [facility] Start: 08-08-2019 End: 04-03-2022 History SDOH Social Connections Membership [address] [facility] Start: 01-13-2020 End: 04-03-2022 History SDOH Physical Activity DPW [address] [facility] Start: 01-12-[address] [facility] Start: 08-26-1956 Sex Assigned At Female C [facility] Start: 06-06-2021 End: 02-13-2022 Exposure to SARS-CoV-2 (event) Not sure [facility] Start: 04-03-2022 End: 09-12-2022 Social connection and isolation panel [facility] Do you belong to any clubs or organizations such as sabianism groups, unions, fraternal or athletic groups, or school groups? No [facility] Are you now , , , , never or living with a partner? [facility] How often to you hav e a drink containing alcohol? Never [facility] How many standard dr inks containing alcohol do you have on a typical day? Patient does not drink [facility] Do you feel stress - tense, restless, nervous, or anxious, or unable to sleep at night because your mind is troubled all the time - these days [OSQ] Only a little [facility] (I/We) worried wheth er (my/our) food would run out before (I/we) got money to buy more. Never true [facility] Start: 11-07-2018 Gender identity Identifies as female gender (finding) [facility] Start: 11-07-2018 Sexual orientation Heterosexual (fin josr) [facility] Do you feel stress - tense, restless, nervous, or anxious, or unable to sleep at night because your mind is troubled all the time - these days [OSQ] To some extent [facility] Medical Equipment Procedure Code Equipment Code Equipment Origin al Text Equipment Identifier Dates [id number] Implant - [id number] Start: 11-29-2011 Clinical Notes 01-05-2012 to 04-19-2023 Telephone Encounter - Caitlyn Mathews Ma - 03/06/2023 3:48 PM ESTTelephone Encounter - Dejah Boss LPN - 02/21/2023 1:02 PM ESTTelephone Encounter - Marcus Guardado - 02/21/2023 10:55 AM EST Note Date & Type Note Facility 04-19-2023 Note HNO ID: [id number] Author: AUDI OSCAR APRN.POLICY CHANGE CLERK Service: ? Author Type: Nurse Practitioner Type: Progress Notes Filed: 04/19/2023 15:26 Note Text: CC: Patient presents with: Sinus Problem: Pressure swelling in pain in face and head, mouth, congestion x 2 weeks HPI: Yamilex Maldonado is a 67 year old female who presents to the office with complaint of head congestion and cough, nonproductive for 2 weeks. Symptoms are worsening Associated symptoms includes nasal congestion and facial pain/pressure. Denies fever, nausea, vomiting , and diarrhea. Treatments tried include nothing so far. with no relief of symptoms. Sick contacts: unknown. History of asthma, frequent episodes of bronchitis, chronic bronchitis, bronchiectasis or COPD: No Smoker: No Seasonal/environmental allergies: No The ROS is otherwise negative. The patient's pmh, medications, allergies, and past visits are reviewed. PHYSICAL EXAM: BP 122/75 Pulse 80 Temp 36.9 ?C (98.5 ?F) Resp 20 Wt 69.9 kg (154 lb) SpO2 98% BMI 27.28 kg/m? General appearance: alert, cooperative, pleasant, in no acute distress Head: Normocephalic Eyes: EOM's intact, conjunctiva pink and moist, no icterus, sclera white, non-injected Ears: Right ear: External ear/canal- Normal, TM - clear with good landmarks. Left ear: External ear/canal- Normal, TM - clear with good landmarks Oropharynx:moist without lesions Heart: Negative. RRR without obvious murmur, gallop, or rubs. No ectopy. Lungs: clear to auscultation, without rales or wheeze, good air exchange PAST MEDICAL HISTORY Diagnosis Date Adjustment disorder with depressed mood Arthritis Kidney stones Mass of right parotid gland 04/14/2019 FNA right parotid:Negative for malignant cells. Warthin's tumor. 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 and being monitored by PCP Type II or unspecified type diabetes mellitus without mention of complication, not stated as uncontrolled PAST SURGICAL HISTORY Procedure Laterality Date APPENDECTOMY APPENDECTOMY ARTHRP INTERPOS INTERCARPAL/METACARPAL JOINTS Right 01/23/2020 Right thumb CMC arthroplasty with LRTI, Palmaris longus CHOLECYSTECTOMY COLONOSCOPY DIAGNOSTIC 03/03/2022 dysplastic polyp, repeat in [address] MAXILLOFACIAL WO/ CONT Bilateral mild ethmoid thickening bilaterally ESWL kidney stones OOPHORECTOMY PARTIAL/TOTAL UNI/BI bilaterally with hysterectomy PAST SURGICAL HISTORY OF tubal preg PAST SURGICAL HISTORY OF remote left leg/ ankle with plates and screws PAST SURGICAL HISTORY OF Left 11/29/2011 Bunion Removed PAST SURGICAL HISTORY OF Right 04/2019 parotid mass excision SINUS SURGERY HX 02/11/2018 TONSILLECTOMY HX TOT ABD HYST W/WO RMVL TUBE OVARY W/COLPURETHRXY VAGINAL HYSTERECTOMY ALLERGIES Ampicillin, Avelox [Moxifloxacin Hcl], Bactrim [Sulfamethoxazole-Trimethoprim] , Doxycycline, and Steroids [Corticosteroids (Glucocorticoids)] MEDICATIONS pravastatin (PRAVACHOL) 20 mg tablet Take 1 tablet by mouth daily at bedtime. methocarbamol (ROBAXIN) 500 mg tablet Take 1 tablet by mouth four times a day as needed. cetirizine (ZYRTEC) 10 mg tablet Take 1 tablet by mouth once daily as needed (FOR HIVES). Cholecalciferol, Vitamin D3, 50 mcg (2,000 unit) cap Take 1 capsule by mouth once daily. PARoxetine (PAXIL) 40 mg tablet Take 1 tablet by mouth once daily. topiramate (TOPAMAX) 25 mg tablet Take 1 tablet by mouth two times a day. (approximately 12 hours apart). metFORMIN (GLUCOPHAGE) 850 mg tablet Take 1 tablet by mouth twice daily with meals. fluticasone (FLONASE) 50 mcg/actuation nasal spray Use 2 Sprays in each nostril once daily. lactulose (DUPHALAC, CONSTULOSE) 10 g/15 mL soln Take 15 mL by mouth once daily. albuterol HFA (PROVENTIL HFA, VENTOLIN HFA) 90 mcg/actuation inhaler Inhale 2-4 Puffs as instructed every 2 hours as needed for wheezing/shortness of breath. acetaminophen 650 mg CR tablet Take 650 mg by mouth every 8 hours as needed. blood sugar diagnostic (BLOOD GLUCOSE TEST) test strip Test blood sugar(s) 2 times daily. Dx: Type 2 DM - Uncontrolled E11.65 Insulin: No azithromycin (ZITHROMAX) 250 mg tablet Take 2 tablets by mouth once daily for 1 day, THEN 1 tablet once daily for 4 days. FAMILY HISTORY Adopted: Yes Problem Relation Age of Onset Diabetes Father Heart Father Hypertension Father Lipids Father Diabetes Maternal Grandmother None Sister Diabetes Daughter Cancer Sister thyroid. Social History Tobacco Use Smoking status: Every Day Packs/day: 1.00 Years: 44.00 Additional pack years: 0.00 Total pack years: 44.00 Types: Cigarettes Smokeless tobacco: Never Vaping Use Vaping Use: Never used Substance Use Topics Alcohol use: No Drug use: No ASSESSMENT/PLAN: 1. Rhinosinusitis - ICD9: 473.9, ICD10: J32.9 - [place] (more content not included)... [facility] 04-12-2023 Note HNO ID: [id number] Author: Ashli SILVA PA-C Service: ? Author Type: Physician Sign Hanger Supervisor Type: Progress Notes Filed: 04/12/2023 15:37 Note Text: 67 year old female with c/o cough, chest congestion, negative Covid testing at home. First sx 2 days ago with water drainage, coughing, sneezing, watery eyes. Feeling feverish, drenched in sweat. No ear pain or plugged. Notes face looks puffy. + ST without difficulty swallowing. Burned mouth on hot tea. Cough is worse at night, non-productive. Used albuterol last night and this morning. No N/V/D. Legs feel cold. Feels like wearing knee socks but not. Last blood sugars 97-162 Hemoglobin A1C (%) Date Value 09/19/2022 6.1 09/12/2021 6.4 10/12/2020 6.2 08/14/2019 6.4 ) Seeing Dr. Mejia: Doing MRI spine HISTORIES FAMILY HISTORY Adopted: Yes Problem Relation Age of Onset Diabetes Father Heart Father Hypertension Father Lipids Father Diabetes Maternal Grandmother None Sister Diabetes Daughter Cancer Sister thyroid. PAST MEDICAL HISTORY Diagnosis Date Adjustment disorder with depressed mood Arthritis Kidney stones Mass of right parotid gland 04/14/2019 FNA right parotid:Negative for malignant cells. Warthin's tumor. 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 and being monitored by PCP Type II or unspecified type diabetes mellitus without mention of complication, not stated as uncontrolled PAST SURGICAL HISTORY Procedure Laterality Date APPENDECTOMY APPENDECTOMY ARTHRP INTERPOS INTERCARPAL/METACARPAL JOINTS Right 01/23/2020 Right thumb CMC arthroplasty with LRTI, Palmaris longus CHOLECYSTECTOMY COLONOSCOPY DIAGNOSTIC 03/03/2022 dysplastic polyp, repeat in [address] MAXILLOFACIAL WO/ CONT Bilateral mild ethmoid thickening bilaterally ESWL kidney stones OOPHORECTOMY PARTIAL/TOTAL UNI/BI bilaterally with hysterectomy PAST SURGICAL HISTORY OF tubal preg PAST SURGICAL HISTORY OF remote left leg/ ankle with plates and screws PAST SURGICAL HISTORY OF Left 11/29/2011 Bunion Removed PAST SURGICAL HISTORY OF Right 04/2019 parotid mass excision SINUS SURGERY HX 02/11/2018 TONSILLECTOMY HX TOT ABD HYST W/WO RMVL TUBE OVARY W/COLPURETHRXY VAGINAL HYSTERECTOMY Social History Tobacco Use Smoking status: Every Day Packs/day: 1.00 Years: 44.00 Additional pack years: 0.00 Total pack years: 44.00 Types: Cigarettes Smokeless tobacco: Never Vaping Use Vaping Use: Never used Substance Use Topics Alcohol use: No Drug use: No ACTIVE PROBLEM LIST Well Controlled 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) Hyperlipidemia With Target Ldl Less Than 70 Depression With Anxiety Fibromyalgia Osteoporosis Tobacco Abuse Atrophic Vaginitis Hallux Valgus, Acquired Dyspareunia Vitamin D Deficiency Degenerative Disc Disease Scoliosis Lumbar Radiculopathy Spinal Stenosis of Lumbar Region Without Neurogenic Claudication Essential Tremor Urge Incontinence History of Thyroid Disease Stage 3a Chronic Kidney Disease (Hcc) Moderate Persistent Asthma, Uncomplicated Fracture of Distal End of Right Radius Chronic Rhinitis Abnormal Colonoscopy Type 2 Diabetes Mellitus With Stage 3a Chronic Kidney Disease, Without Long-Term Current Use of Insulin (Hcc) Hypertensive Kidney Disease With Stage 3a Chronic Kidney Disease (Hcc) Adductor Tendonitis Closed Head Injury With Concussion Depression, Recurrent (Hcc) Current Outpatient Medications Medication Sig Dispense Refill pravastatin (PRAVACHOL) 20 mg tablet Take 1 tablet by mouth daily at bedtime. 90 tablet 3 methocarbamol (ROBAXIN) 500 mg tablet Take 1 tablet by mouth four times a day as needed. 30 tablet 1 cetirizine (ZYRTEC) 10 mg tablet Take 1 tablet by mouth once daily as needed (FOR HIVES). 30 tablet 1 Cholecalciferol, Vitamin D3, 50 mcg (2,000 unit) cap Take 1 capsule by mouth once daily. 90 capsule 3 PARoxetine (PAXIL) 40 mg tablet Take 1 tablet by mouth once daily. 30 tablet 5 metFORMIN (GLUCOPHAGE) 850 mg tablet Take 1 tablet by mouth twice daily with meals. 60 tablet 11 fluticasone (FLONASE) 50 mcg/actuation nasal spray Use 2 Sprays in each nostril once daily. 1 Each 5 lactulose (DUPHALAC, CONSTULOSE) 10 g/15 mL soln Take 15 mL by mouth once daily. 240 mL 11 albuterol HFA (PROVENTIL HFA, VENTOLIN HFA) 90 mcg/actuation inhaler Inhale 2-4 Puffs as instructed every 2 hours as needed for wheezing/shortness of breath. 18 g 1 acetaminophen 650 mg CR tablet Take 650 mg by mouth every 8 hours as needed. blood sugar diagnostic (BLOOD GLUCOSE TEST) test strip Test blood sugar(s) 2 times daily. Dx: Type 2 DM - Uncontrolled E11.65 Insulin: No 200 Strip 3 topiramate (TOPAMAX) 25 mg tablet Take 1 tablet by mouth two times a day. (approximately 12 hours apart). (Patient not takin (more content not included)... [facility] 04-03-2023 Note HNO ID: [id number] Author: SOPHIE MEDRANO PA-C Service: ? Author Type: Physician Sign Hanger Supervisor Type: Progress Notes Filed: 04/04/2023 13:00 Note Text: HISTORY AND PHYSICAL Yamilexshanique Maldonado 1955 REFERRING PHYSICIAN: No ref. provider found CHIEF COMPLAINT: Consult (Colonoscopy, last colonoscopy was completed on 02/2022, EGD stomach pain) HPI: The patient is a 67 year old female referred for endoscopy. Yamilex notes no colon complaints. Patient denies any change in bowel habits, weight changes, blood in stools, black tarry stools or abdominal pain. Denies family history of colon issues. The patient NOTES ulcer type symptoms-c/o epigastric pain, has tried PPI last few months without improvement. Patient is a smoker, 1 pack per day. Yamilex has undergone prior endoscopy. Last colonoscopy 03/03/[address] Bravo under conscious sedation with removal of multiple adenomatous polyps including dysplastic polyp at the hepatic flexure. PAST MEDICAL HISTORY Diagnosis Date Adjustment disorder with depressed mood Arthritis Kidney stones Mass of right parotid gland 04/14/2019 FNA right parotid:Negative for malignant cells. Warthin's tumor. 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 and being monitored by PCP Type II or unspecified type diabetes mellitus without mention of complication, not stated as uncontrolled PAST SURGICAL HISTORY Procedure Laterality Date APPENDECTOMY APPENDECTOMY ARTHRP INTERPOS INTERCARPAL/METACARPAL JOINTS Right 01/23/2020 Right thumb CMC arthroplasty with LRTI, Palmaris longus CHOLECYSTECTOMY COLONOSCOPY DIAGNOSTIC 03/03/2022 dysplastic polyp, repeat in [address] MAXILLOFACIAL WO/ CONT Bilateral mild ethmoid thickening bilaterally ESWL kidney stones OOPHORECTOMY PARTIAL/TOTAL UNI/BI bilaterally with hysterectomy PAST SURGICAL HISTORY OF tubal preg PAST SURGICAL HISTORY OF remote left leg/ ankle with plates and screws PAST SURGICAL HISTORY OF Left 11/29/2011 Bunion Removed PAST SURGICAL HISTORY OF Right 04/2019 parotid mass excision SINUS SURGERY HX 02/11/2018 TONSILLECTOMY HX TOT ABD HYST W/WO RMVL TUBE OVARY W/COLPURETHRXY VAGINAL HYSTERECTOMY Current Outpatient Medications Medication Sig pravastatin (PRAVACHOL) 20 mg tablet Take 1 tablet by mouth daily at bedtime. methocarbamol (ROBAXIN) 500 mg tablet Take 1 tablet by mouth four times a day as needed. cetirizine (ZYRTEC) 10 mg tablet Take 1 tablet by mouth once daily as needed (FOR HIVES). Cholecalciferol, Vitamin D3, 50 mcg (2,000 unit) cap Take 1 capsule by mouth once daily. PARoxetine (PAXIL) 40 mg tablet Take 1 tablet by mouth once daily. metFORMIN (GLUCOPHAGE) 850 mg tablet Take 1 tablet by mouth twice daily with meals. fluticasone (FLONASE) 50 mcg/actuation nasal spray Use 2 Sprays in each nostril once daily. lactulose (DUPHALAC, CONSTULOSE) 10 g/15 mL soln Take 15 mL by mouth once daily. albuterol HFA (PROVENTIL HFA, VENTOLIN HFA) 90 mcg/actuation inhaler Inhale 2-4 Puffs as instructed every 2 hours as needed for wheezing/shortness of breath. acetaminophen 650 mg CR tablet Take 650 mg by mouth every 8 hours as needed. blood sugar diagnostic (BLOOD GLUCOSE TEST) test strip Test blood sugar(s) 2 times daily. Dx: Type 2 DM - Uncontrolled E11.65 Insulin: No topiramate (TOPAMAX) 25 mg tablet Take 1 tablet by mouth two times a day. (approximately 12 hours apart). (Patient not taking: Reported on 04/03/2023) No current facility-administered medications for this visit. ALLERGIES: Ampicillin, Avelox [Moxifloxacin Hcl], Bactrim [Sulfamethoxazole-Trimethoprim] , Doxycycline, and Steroids [Corticosteroids (Glucocorticoids)] PERSONAL HISTORY: Social History Tobacco Use Smoking status: Every Day Packs/day: 1.00 Years: 44.00 Additional pack years: 0.00 Total pack years: 44.00 Types: Cigarettes Smokeless tobacco: Never Vaping Use Vaping Use: Never used Substance Use Topics Alcohol use: No Drug use: No FAMILY HISTORY: FAMILY HISTORY Adopted: Yes Problem Relation Age of Onset Diabetes Father Heart Father Hypertension Father Lipids Father Diabetes Maternal Grandmother None Sister Diabetes Daughter Cancer Sister thyroid. REVIEW OF SYMPTOMS: The review of systems data was entered by the nurse and reviewed by ks Nursing Notes: Kathy Deshpande LPN 04/03/2023 11:04 AM Signed REVIEW OF SYSTEMS: General: The patient notes fatigue, denies weight loss, denies weight gain, denies feeling hot, and notes feelings of cold. Eyes: The patient denies glaucoma, denies eye injury/surgery, wears glasses or contacts. Ear/Nose/Throat: The patient notes allergies, denies hayfever, denies ear infections, and denies bloody noses. Cardiovascular: The patient denies chest pain, denies heart disease, denies high blood pressure,denies cardiac stent, (more content not included)... [facility] 03-15-2023 Note HNO ID: [id number] Author: Zohreh Maher APRN.POLICY CHANGE CLERK Service: ? Author Type: Nurse Practitioner Type: Progress Notes Filed: 03/16/2023 10:07 AM Note Text: [facility] [place] Follow-up Visit Follow-up note This visit was conducted via virtual platform. I have communicated my name and active licensure. The patient's identity and physical location were verified at the time of this visit. Either the patient or their legal insurance follow up representative has been informed of the risks and benefits of -- and alternatives to -- treatment through a remote evaluation and consents to proceed with the evaluation remotely. March 15, 2023 HPI: Ms. Maldonado presents today for a follow-up visit. Per her previous visit with Dr. Mejia on 02/23/23: ASSESSMENT/PLAN: 1. Balance disorder - ICD9: 781.99, ICD10: R26.89 (primary diagnosis) Balance disorder of uncertain etiology. Suspect multifactorial including tremors and possible lumbar stenosis given history provided by patient including pain radiating into lower exts as well as abnormal gait due to lower back pain. Ddx d/w pt. To further evaluate will get MRI of L spine. In addition, due to intention tremor question if cerebellar event or cerebellar degenerative process and thus, will also get MRI brain (prior CT unremarkable per reports but would be poor imaging of the posterior fossa and cerebellum). As for C spine, no obvious finds 2. Cold intolerance - ICD9: 780.99, ICD10: R68.89 Possibly related to environmental factors. No anemia on recent labs. That said, no recent thyroid labs which could also exacerbate tremors. Labs as follows: - TSH BLD - T4 FREE/FREE THYROX 3. Spinal stenosis of lumbar region with neurogenic claudication - ICD9: 724.03, ICD10: M48.062 As discussed above (suspected): - MRI LUMBAR SPINE WO IVCON 4. Tremor - ICD9: 781.0, ICD10: R25.1 No s/s of PD on examination. However, evidence of postural, action and intention tremors on exam. Reports family history of tremor and labeled with familial tremor. However, given balance issues, also need to consider degenerative process including cerebellar ataxia. Will proceed with MRI brain to evaluate for intracranial cause. Thyroid labs as above. Check Ceruloplasmin. For tremor, and given s/s suggestive of migraine post concussion, will place on Topamax 25mg BID which should treat tremor and act as headache preventative. SE and ADRs d/w pt. No contraindications endorsed by pt including no significant history of renal stones. 5. Chronic post-traumatic headache, not intractable - ICD9: 339.22, ICD10: G44.329 MRI brain to evaluate for other causes of headache, but suspect migraines in setting of prolongede post-concussion syndrome. MRI brain as above. Topamax as above. 6. Cat allergies - ICD9: 477.8, ICD10: J30.81 Pt taking Benadryl nightly which makes her sleepy for the next 24 hours which also could exacerbate balance issues. Thus, advised pt to follow up with PCP for alternative therapies including possible referral to allergy. Balance concerns have been present for some time, however, started to notice increased falls and worsening of balance over the past few years. Most notably worsened five years ago after falling down steps. Broke her R wrist at the time and injured her neck. Balance worsened after this and has continued to progress. No known triggers, just falls suddenly. Will get a feeling she is going down. Cannot catch herself. Tremors have been present since she was born. States her biological mother had tremors. Does not drink ETOH or caffeine. Tremor can worsen when she is nervous. Did worsen since her fall five years ago. Present in both hands and her head. Head tremor present since first concussion. No head injuries prior to fall five years ago. Does feel dizzy at times upon first standing, when bending over and going to straighten up. Dizziness upon bending has developed more recently. Tries to avoid bending over. Grandfather with PD. Has been having headaches since past concussion. Cannot handle bright lights and loud noise. Has been getting migraines. Headaches become severe to the point she needs to lie down in the dark. Has not yet started Topamax. States it is too close to [place] and cannot be sleepy as she has to make gifts. Not going up and down stairs as she lives with her kids and they do not want her to fall. They also got her a helmet so she does not hit her head if she falls. Has had CT brain after each concussion. Most recent in November 2022. Does not check BP at home. States one time it was 100/50. Did not feel lightheaded at that time. Does not feel lightheaded right before falling. Some difficulty using utensils. Handwriting has been horrible. Does have bladder leakage since she turned 58. Feels like she can shuffle her feet when walking. Memory ok and feels she can still live on her own but states (more content not included)... [facility] 03-06-2023 Miscellaneous Notes faxed To providers desk for review. Type of form: Revision of POC from [facility] Form received via fax When form is completed, Fax form to [phone] Form has been forwarded to Provider's Mailbox: EMMA Talley documented in this encounter [facility] 03-05-2023 Miscellaneous Notes Patient informed and verbalized understanding. Mary Rivera Is she using Flonase daily? Has rx If not, start. The following approved medication requests have been transmitted electronically. Requested Prescriptions Signed Prescriptions Disp Refills cetirizine (ZYRTEC) 10 mg tablet 30 tablet 1 Sig: Take 1 tablet by mouth once daily as needed (FOR HIVES). Authorizing Provider: Ashli SILVA PA-C Spoke with patient; per Pt. Dr. Mejia concerned because she was taking benadryl allergy daily. She lives with her daughter whom has 3 cats. She's allergic to cats and dogs. Patient has since stopped the benadryl allergy per Dr. Mejia. Willing and wanting to try something else. Mary Rivera Please ask patient if she is having uncontrolled allergies- this was identified as a concern from Dr. Mejia. Thanks, Jj Silva PA-C documented in this encounter [facility] 02-26-2023 Miscellaneous Notes CaseId:[id number] Status:Approved Coverage Start Date:01/27/2023 Coverage End Date:02/26/2024 Notification received from pharmacy that PA is required for patient's Topamax BID. As directed, PA submitted on CoverMyMeds with OV note documentation. Please watch for determination. Navarro: [email or web address] - Rx #: [id number] CRISTOPHER Christensen documented in this encounter [facility] 02-26-2023 Miscellaneous Notes Patient phones requesting refills as follows: Requested Prescriptions Pending Prescriptions Disp Refills Cholecalciferol, Vitamin D3, 50 mcg (2,000 unit) cap 90 capsule 3 Sig: Take 1 capsule by mouth once daily. NATHANIEL 12/14/22 NOV no upcoming appt Please review and advise. Marcus Guardado documented in this encounter [facility] 02-23-2023 Note HNO ID: [id number] Author: Too Mejia Jr., MD Service: ? Author Type: Physician Type: Progress Notes Filed: 02/23/2023 2:00 PM Note Text: NEW PATIENT (CONSULT) HISTORY AND PHYSICAL EXAM PRIMARY CARE PHYSICIAN: Ashli Silva PA-C REASON FOR CONSULT: Balance problems. REFERRING PHYSICIAN: Ashli Silva PA-C Consultation requested by Ashli Silva PA-C for an opinion regarding chief complaint of Patient presents with: New Patient: Pt reported balance issues, fall 12/2022, reported dizziness x2 yrs, pt reported tremors onset . and my final recommendations will be communicated back to the requesting physician by way of shared medical record or letter via [place] mail. HISTORY OF PRESENT ILLNESS: Yamilex Maldonado is a 67 year old female, BMI 26.89 kg/m2 with a PMH significant for that below. CT brain wwo contrast on 12/04/22 for reported complaint of pain showed no acute intracranial process and per report from [facility] was unremarkable. CT brain also unremarkable per report from [facility] and for trauma on 07/16/22. CT C spine at that same time showed per report from [facility], no acute changes and no significant canal stenosis. Pt reports symptoms present. States 2 concussions in past 5 months due to falls. States one episode occurred at a friends house where she missed a hanging swing, fell and the swing came back and hit her on the base of skull. Then in 11/2022, not due to fall, raised head into a counter. Balance issues are present daily. No time of day more often than others. Reports not associated with glucose. Regarding walking, states tries to slow down and is not allowed to go up and down steps -- now living with kids. She would prefer to be back at her old apartment which was one story. States she always feels cold in their house and that he head is always frozen due to sleeping near an air conditioner and now there are spots on the head that always feel numb. States wakes and head is froze, nose froze, ears are froze. Patient also reports not being able to handle loud noises since concussions and can result in a bad headache. Headache usually posterior and top of head but then later states frontal. Also associated photophobia. That said, headaches are rare - I stay by myself . Pt also with history of familial tremor. States a benadryl allergy every night so that she can breathe the next day as her kids have cats. States fighting to stay awake all day due to drowsiness. States she cannot take Claritin or Karina or else makes blood pressure drop. States handwriting messier. Some issues with R hand with fine motor tasks but has had 2 surgeries on wrist (including for a broken wrist due to fall down stairs). Chronic lower back pain that radiates into legs but she cannot tell me if in anterior, lateral or posterior legs. No other clear provoking factors for balance issues. Pt with chronic external rotation of the left foot due to a prior ankle fracture. No history significant for renal stones. L spine XR in 03/03/2020: RESULT: 5 lumbar type vertebrae. For numbering purposes, L4-5 is at the level of the iliac crest. Degenerative change involving the posterior elements from L4 through S1. Diffuse osteopenia is seen. Levoscoliosis of approximately 32 degrees as measured from inferior L1 to superior L4. REVIEW OF SYSTEMS GENERAL:No weight loss, malaise or fevers. HEENT:Negative for frequent or significant headaches, No changes in hearing or vision, no nose bleeds or other nasal problems NECK:Negative for lumps, goiter, pain and significant neck swelling RESPIRATORY: Negative for cough, wheezing or shortness of breath. CARDIOVASCULAR: Negative for chest pain, leg swelling or palpitations. GASTROINTESTINAL: Negative for abdominal discomfort, blood in stools or black stools or change in bowel habits GENITOURINARY: No history of dysuria, frequency or incontinence MUSCULOSKELETAL: See HPI. NEUROLOGIC:See HPI. SKIN:Negative for lesions, rash, and itching. PSYCHIATRIC: Negative for sleep disturbance, mood disorder and recent psychosocial stressors. HEMATOLOGIC/LYMPHATIC/IMMUNOLOG IC:Negative for prolonged bleeding, bruising easily or swollen nodes. ENDOCRINE: Negative for cold or heat intolerance, polyuria, polydipsia and goiter. The remainder of the ROS was reviewed and is negative. LAB/IMAGING: Reviewed and include: WBC (k/uL) Date Value 09/19/2022 7.27 RBC (m/uL) Date Value 09/19/2022 4.26 Hemoglobin (g/dL) Date Value 09/19/2022 12.7 Hematocrit (%) Date Value 09/19/2022 39.7 MCV (fL) Date Value 09/19/2022 93.2 MCH (pg) Date Value 09/19/2022 29.8 MCHC (g/dL) Date Value 09/19/2022 32.0 RDW-CV (%) Date Value 09/19/2022 13.9 Platelet Count (k/uL) Date Value 09/19/2022 217 MPV (fL) Date Value 09/19/2022 10.8 Glucose (mg/dL) Date Value 09/19/2022 129 (H) BUN (mg/dL) Date Value 09/19/2022 26 (H) (more content not included)... [facility] 02-23-2023 Note HNO ID: [id number] Author: Delia Bates LPN Service: ? Author Type: ? Type: Progress Notes Filed: 02/23/2023 2:00 PM Note Text: There is no data to display for this encounter [facility] 12-15-2022 Note HNO ID: [id number] Author: Jackeline Vargas Service: ? Author Type: Physician Type: Progress Notes Filed: 12/15/2022 11:18 AM Note Text: Last saw Jj Silva 12/14/22 Subjective: This 67 year old female presents to clinic for diabetic foot check. Patient has the following complaints: left 2nd toe pain. States she bumped her toe on 11/28/22. Xrays were negative for fracture but still has swelling. Does complaint of pain in left ankle. States her ankle collapses. Wonders if there is anythign that can be done for this. She complains of painful toenails. Patient admits to being diabetic for several years now. Patient +B/T/N in feet at this time. Patient +pain in legs when walking. No other pedal complaints at this time. No change in medications or medical history since last visit. PAIN EVALUATION No data found in the last 1 encounters. Hemoglobin A1C Date Value 09/19/2022 6.1 % 09/12/2021 6.4 % 10/12/2020 6.2 % 08/14/2019 6.4 % 02/07/2019 5.6 % 08/06/2018 5.8 % 02/05/2018 5.9 09/05/2017 5.8 % PCP: Ashli Silva PA-C PAST MEDICAL HISTORY Diagnosis Date Adjustment disorder with depressed mood Arthritis Kidney stones Mass of right parotid gland 04/14/2019 FNA right parotid:Negative for malignant cells. Warthin's tumor. 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 and being monitored by PCP Type II or unspecified type diabetes mellitus without mention of complication, not stated as uncontrolled Current Outpatient Medications Medication Sig pseudoephed/acetaminoph/diphen (BENADRYL ALLERGY/COLD ORAL) Take by mouth. metFORMIN (GLUCOPHAGE) 850 mg tablet Take 1 tablet by mouth twice daily with meals. fluticasone (FLONASE) 50 mcg/actuation nasal spray Use 2 Sprays in each nostril once daily. omeprazole (PRILOSEC) 20 mg capsule Take 1 capsule by mouth daily before breakfast. 1/2 hr before meal. lactulose (DUPHALAC, CONSTULOSE) 10 g/15 mL soln Take 15 mL by mouth once daily. PARoxetine (PAXIL) 40 mg tablet Take 1 tablet by mouth once daily. albuterol HFA (PROVENTIL HFA, VENTOLIN HFA) 90 mcg/actuation inhaler Inhale 2-4 Puffs as instructed every 2 hours as needed for wheezing/shortness of breath. Cholecalciferol, Vitamin D3, 50 mcg (2,000 unit) cap Take 1 capsule by mouth once daily. pravastatin (PRAVACHOL) 20 mg tablet Take 1 tablet by mouth daily at bedtime. acetaminophen 650 mg CR tablet Take 650 mg by mouth every 8 hours as needed. blood sugar diagnostic (BLOOD GLUCOSE TEST) test strip Test blood sugar(s) 2 times daily. Dx: Type 2 DM - Uncontrolled E11.65 Insulin: No COMPOUNDED PRESCRIPTION Powerstep Original Full Length` No current facility-administered medications for this visit. ALLERGIES Allergen Reactions Ampicillin GI Upset Intolerance, can take cephalosporins Avelox [Moxifloxaci* Mental Status Change Bactrim [Sulfametho* Vomiting Doxycycline GI Upset Steroids [Corticost* Other: See Comments Anxiety, jittery and head feels funny PAST SURGICAL HISTORY Procedure Laterality Date APPENDECTOMY APPENDECTOMY ARTHRP INTERPOS INTERCARPAL/METACARPAL JOINTS Right 01/23/2020 Right thumb CMC arthroplasty with LRTI, Palmaris longus CHOLECYSTECTOMY COLONOSCOPY DIAGNOSTIC 03/03/2022 dysplastic polyp, repeat in [address] MAXILLOFACIAL WO/ CONT Bilateral mild ethmoid thickening bilaterally ESWL kidney stones OOPHORECTOMY PARTIAL/TOTAL UNI/BI bilaterally with hysterectomy PAST SURGICAL HISTORY OF tubal preg PAST SURGICAL HISTORY OF remote left leg/ ankle with plates and screws PAST SURGICAL HISTORY OF Left 11/29/2011 Bunion Removed PAST SURGICAL HISTORY OF Right 04/2019 parotid mass excision SINUS SURGERY HX 02/11/2018 TONSILLECTOMY HX TOT ABD HYST W/WO RMVL TUBE OVARY W/COLPURETHRXY VAGINAL HYSTERECTOMY FAMILY HISTORY Adopted: Yes Problem Relation Age of Onset Diabetes Father Heart Father Hypertension Father Lipids Father Diabetes Maternal Grandmother None Sister Diabetes Daughter Cancer Sister thyroid. Social History Tobacco Use Smoking status: Every Day Packs/day: 1.00 Years: 44.00 Additional pack years: 0.00 Total pack years: 44.00 Types: Cigarettes Smokeless tobacco: Never Vaping Use Vaping Use: Never used Substance Use Topics Alcohol use: No Drug use: No REVIEW OF SYSTEMS GENERAL: Negative for Malaise, significant weight loss, fever RESPIRATORY: Negative for cough, wheezing and shortness of breath CARDIOVASCULAR: Negative for chest pain, leg swelling and palpitations GI: Negative for abdominal discomfort, blood in stools or black stools and change in bowel habits : Negative for dysuria, frequency and incontinence MUSCULOSKELETAL: Negative for joint pain or swelling, back pain, and muscle pain. SKIN: Negative for lesions, rash, and itching. HEMATOLOGY/ (more content not included)... [facility] 12-15-2022 Note HNO ID: [id number] Author: Dianna Smith Service: ? Author Type: ? Type: Progress Notes Filed: 12/15/2022 11:18 AM Note Text: AMB ROOMING INTAKE FLOWSHEET DATA 11/28 injury to left 2nd toe. Still with swelling but minimal discomfort. Diabetic nail care. [facility] 12-14-2022 Note HNO ID: [id number] Author: Ashli Silva PA-C Service: ? Author Type: Physician Sign Hanger Supervisor Type: Progress Notes Filed: 12/14/2022 3:19 PM Note Text: 67 year old female with c/o here for follow up Feels wobbly Brain feels like it's wobbly in side like something slushing- clarified as throbbing, pressure on the sides. Taking Arthritis Tylenol. Drinks sugar free Giacomo-Aid during the day, 2 cups of tea 11/26/2022 presented to [facility] care with complaint of left second toe injury on bed frame 3 days previous. X-ray showed no fracture. Placed in a postop shoe. Hypertensive kidney disease with stage 3a chronic kidney disease (hcc) (primary encounter diagnosis) Stage 3a chronic kidney disease (hcc) Current meds: No medications currently Patient is compliant with meds n/a Monitors bp at home: No. If yes, readings: Denies side effects: n/a. Chest pain: No. Dyspnea: No. Edema: No. States legs hurt. Palpitations: No. Syncope: No. Headache: Yes as above Dizziness: No. Last 3 Encounter BP Readings: Date: BP: 11/26/2022 118/70 09/12/2022 102/60 07/25/2022 120/66 Last 2 Encounter Wt Readings: Date: Wt: 11/26/2022 69 kg (152 lb 3.2 oz) 09/12/2022 70.4 kg (155 lb 3.2 oz) Component Latest Ref Rng AND Units 08/14/2019 09/05/2021 09/19/2022 Protein, Total 6.3 - 8.0 g/dL 6.4 7.2 Albumin 3.9 - 4.9 g/dL 4.0 4.4 Calcium 8.5 - 10.2 mg/dL 8.8 9.6 Bilirubin, Total 0.2 - 1.3 mg/dL 0.3 0.3 Alkaline Phosphatase 34 - 123 U/L 67 69 AST 13 - 35 U/L 16 19 ALT 7 - 38 U/L 14 21 Glucose 74 - 99 mg/dL 117 (H) 129 (H) BUN 7 - 21 mg/dL 22 (H) 26 (H) Creatinine 0.58 - 0.96 mg/dL 1.03 (H) 1.16 (H) Sodium 136 - 144 mmol/L 140 138 Potassium 3.7 - 5.1 mmol/L 4.0 4.2 Chloride 97 - 105 mmol/L 105 104 CO2 22 - 30 mmol/L 24 25 Anion Gap 9 - 18 mmol/L 11 9 eGFR >=60 mL/min/1.73mA? 60 51 (L) WBC 3.70 - 11.00 k/uL 8.30 7.27 RBC 3.90 - 5.20 m/uL 4.01 4.26 Hemoglobin 11.5 - 15.5 g/dL 11.6 12.7 Hematocrit 36.0 - 46.0 % 36.8 39.7 MCV 80.0 - 100.0 fL 91.8 93.2 MCH 26.0 - 34.0 pg 28.9 29.8 MCHC 30.5 - 36.0 g/dL 31.5 32.0 RDW-CV 11.5 - 15.0 % 13.8 13.9 Platelet Count 150 - 400 k/uL 222 217 MPV 9.0 - 12.7 fL 10.3 10.8 Absolute nRBC <0.01 k/uL <0.01 <0.01 Hyperlipidemia with target ldl less than 70 Hyperlipidemia: Current medication Pravastatin 20 mg daily at bedtime Taking medication consistently No Observing low cholesterol high fiber diet No Muscle aches Yes, chronic Stomach complaints/ diarrhea No Last 2 Lipids: Component Latest Ref Rng AND Units 09/05/2021 09/19/2022 Cholesterol, Total <200 mg/dL 190 207 (H) Triglyceride <150 mg/dL 127 147 HDL Cholesterol >39 mg/dL 58 52 Non HDL Cholesterol <130 mg/dL 132 (H) 155 (H) Fasting Time hrs 8 12 VLDL Cholesterol <30 mg/dL 25 29 TC:HDL Ratio <5.10 3.28 3.98 LDL Cholesterol <100 mg/dL 107 (H) 126 (H) LDL:HDL Ratio <2.54 1.84 2.42 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 manifestations (hcc) Current medications: Metformin 850 mg twice daily with meals Taking medication as directed consistently? Yes Medication side effects: Medical Issues / Complications: hypertension and hyperlipidemia Checking blood sugars at home? No. Watching diet? No Physical Activity: Sedentary Hypoglycemic spells? No Any visual disturbance? No Chest pain? No New numbness, tingling or loss of sensation? No Any recent foot problems, sores or rashes? No Any recent or sudden weight loss? No Change in urination? No. If yes: Any recent illness? No Last eye exam: up to date. Last foot exam: up to date. HBA1C: Hemoglobin A1C (%) Date Value 09/19/2022 6.1 09/12/2021 6.4 10/12/2020 6.2 08/14/2019 6.4 ) CMP: Glucose 129 09/19/2022 BUN 26 09/19/2022 Creatinine 1.16 09/19/2022 Sodium 138 09/19/2022 Potassium 4.2 09/19/2022 Chloride 104 09/19/2022 CO2 25 09/19/2022 Protein, Total 7.2 09/19/2022 Albumin 4.4 09/19/2022 Calcium 9.6 09/19/2022 Alkaline Phosphatase 69 09/19/2022 Bilirubin, Total 0.3 09/19/2022 AST 19 09/19/2022 ALT 21 09/19/2022 Last 2 Encounter Wt Readings: Date: Wt: 11/26/2022 69 kg (152 lb 3.2 oz) 09/12/2022 70.4 kg (155 lb 3.2 oz) Moderate persistent asthma, uncomplicated Tobacco abuse Batch Attendant: none. Interval history: feels asthma getting worse. Current medications: Albuterol HFA 90 mcg per actuation 2 to 4 puffs every 2 hours as needed shortness of breath limit to 4 times a day Worsening shortness of breath: gets congested in chest wheezy, hard to breathe. Cough: states not much cough. Wheezing: Yes. Smoking: Yes. Compliant with medications: Yes. Using rescue inhaler: once a day, not every day. Spinal stenosis of lumbar region without neurogenic claudication Lumbar radiculopathy Fibromyalgia Current medications: Robaxin 500 mg twice a day as needed: not taking, doesn't make any difference Acetaminophen 650 mg CR tablet every 8 hours as nee (more content not included)... [facility] 11-28-2022 Note HNO ID: [id number] Author: Shalini Pope RT(R) Service: ? Author Type: Supervisor Self Service Store Type: Progress Notes Filed: 11/28/2022 9:33 AM Note Text: Radiology Service Progress Note PATIENT NAME: Yamilex Maldonado DATE OF SERVICE: November 28, 2022 TIME: 9:15 AM PATIENT IDENTITY VERIFICATION COMPLETED USING TWO (2) IDENTIFIERS: Name and Date of confirmed by patient verbally. FALL SCREENING: Has the patient had 2 falls in the last year or 1 fall with injury or currently using an Ambulatory Assistive Device (Walker, Cane, Wheelchair, Crutches, etc.)? No PATIENT GENDER DATA: Female. status: : No status: NO. PATIENT RELEVANT IMPLANT DATA REVIEWED: Yes RADIOLOGY DEPARTMENT: General X-ray: Exam(s) Completed: Lower Extremity X-Ray(s): Toes, Left 2nd toe PERIPHERAL IV DATA: Not applicable SIGNED BY: RT Poly(R) November 28, 2022 9:15 AM [facility] 11-28-2022 Miscellaneous Notes Pt notified of results and states understanding. Earnestine Avendaño LPN Patient's x-ray came back with no acute findings. Patient should just continue treatment plan as discussed with provider yesterday and follow-up with primary care in 2 weeks if symptoms or not improved. documented in this encounter [facility] 11-26-2022 Note HNO ID: [id number] Author: Nakul Bustos APRN.POLICY CHANGE CLERK Service: ? Author Type: Nurse Practitioner Type: Progress Notes Filed: 11/26/2022 10:51 AM Note Text: Subjective HPI HPI Yamilex Maldonado is a 67 year old female who presents today for CC of hit second toe on bed frame/left. This started 3 days ago. Has tried otc medication for relief. Symptoms are worsened by walking. Risk factors hx of broken toes. Diabetic. .Patient presents with: Pain (foot): Stubbed toe on metal bedframe x 3 days ago 2nd toe bruising PAST MEDICAL HISTORY Diagnosis Date Adjustment disorder with depressed mood Arthritis Kidney stones Mass of right parotid gland 04/14/2019 FNA right parotid:Negative for malignant cells. Warthin's tumor. 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 and being monitored by PCP Type II or unspecified type diabetes mellitus without mention of complication, not stated as uncontrolled PAST SURGICAL HISTORY Procedure Laterality Date APPENDECTOMY APPENDECTOMY ARTHRP INTERPOS INTERCARPAL/METACARPAL JOINTS Right 01/23/2020 Right thumb CMC arthroplasty with LRTI, Palmaris longus CHOLECYSTECTOMY COLONOSCOPY DIAGNOSTIC 03/03/2022 dysplastic polyp, repeat in [address] MAXILLOFACIAL WO/ CONT Bilateral mild ethmoid thickening bilaterally ESWL kidney stones OOPHORECTOMY PARTIAL/TOTAL UNI/BI bilaterally with hysterectomy PAST SURGICAL HISTORY OF tubal preg PAST SURGICAL HISTORY OF remote left leg/ ankle with plates and screws PAST SURGICAL HISTORY OF Left 11/29/2011 Bunion Removed PAST SURGICAL HISTORY OF Right 04/2019 parotid mass excision SINUS SURGERY HX 02/11/2018 TONSILLECTOMY HX TOT ABD HYST W/WO RMVL TUBE OVARY W/COLPURETHRXY VAGINAL HYSTERECTOMY ALLERGIES Ampicillin, Avelox [Moxifloxacin Hcl], Bactrim [Sulfamethoxazole-Trimethoprim] , Doxycycline, and Steroids [Corticosteroids (Glucocorticoids)] MEDICATIONS metFORMIN (GLUCOPHAGE) 850 mg tablet Take 1 tablet by mouth twice daily with meals. fluticasone (FLONASE) 50 mcg/actuation nasal spray Use 2 Sprays in each nostril once daily. omeprazole (PRILOSEC) 20 mg capsule Take 1 capsule by mouth daily before breakfast. 1/2 hr before meal. lactulose (DUPHALAC, CONSTULOSE) 10 g/15 mL soln Take 15 mL by mouth once daily. PARoxetine (PAXIL) 40 mg tablet Take 1 tablet by mouth once daily. albuterol HFA (PROVENTIL HFA, VENTOLIN HFA) 90 mcg/actuation inhaler Inhale 2-4 Puffs as instructed every 2 hours as needed for wheezing/shortness of breath. methocarbamol (ROBAXIN) 500 mg tablet Take 1 tablet by mouth twice daily as needed. Cholecalciferol, Vitamin D3, 50 mcg (2,000 unit) cap Take 1 capsule by mouth once daily. pravastatin (PRAVACHOL) 20 mg tablet Take 1 tablet by mouth daily at bedtime. acetaminophen 650 mg CR tablet Take 650 mg by mouth every 8 hours as needed. blood sugar diagnostic (BLOOD GLUCOSE TEST) test strip Test blood sugar(s) 2 times daily. Dx: Type 2 DM - Uncontrolled E11.65 Insulin: No COMPOUNDED PRESCRIPTION Powerstep Original Full Length` FAMILY HISTORY Adopted: Yes Problem Relation Age of Onset Diabetes Father Heart Father Hypertension Father Lipids Father Diabetes Maternal Grandmother None Sister Diabetes Daughter Cancer Sister thyroid. Social History Tobacco Use Smoking status: Every Day Packs/day: 1.00 Years: 44.00 Additional pack years: 0.00 Total pack years: 44.00 Types: Cigarettes Smokeless tobacco: Never Vaping Use Vaping Use: Never used Substance Use Topics Alcohol use: No Drug use: No ROS Objective Blood pressure 118/70, pulse 73, temperature 36.9 ?C (98.4 ?F), resp. rate 24, weight 69 kg (152 lb 3.2 oz), SpO2 98 %. Physical Exam Constitutional: General: She is not in acute distress. Appearance: She is not toxic-appearing or diaphoretic. HENT: Head: Normocephalic and atraumatic. Pulmonary: Effort: Pulmonary effort is normal. No accessory muscle usage or respiratory distress. Musculoskeletal: Feet: Neurological: Mental Status: She is alert and oriented to person, place, and time. ASSESSMENT/PLAN: 1. Toe injury, left, initial encounter - ICD9: 959.7, ICD10: S99.922A No xray d/t holiday Post op shoe provided Return for xray Urgent f/u for worsening s/s. - XR TOE AP/LAT/OBL LEFT Nakul Bustos APRN.POLICY CHANGE CLERK [facility] 11-23-2022 Miscellaneous Notes Patient has been identified by name and date of : Yes Patient phones for refill(s): Requested Prescriptions Pending Prescriptions Disp Refills metFORMIN (GLUCOPHAGE) 850 mg tablet 60 tablet 11 Sig: Take 1 tablet by mouth twice daily with meals. Date of last office visit in primary care: 09/12/2022 Please advise. Thank you. Bella Barney LPN documented in this encounter [facility] 11-23-2022 Miscellaneous Notes Called patient and informed her of below. She states that she doesn't feel she needs to be seen at urgent care. Patient states that she has a post op shoe but the heel is tall and causes issues with her gait. Informed patient that a heel lift and a thicker soled shoe to the other foot could help with that. Patient states that she would also like to follow up with Dr. Vargas as she is supposed to get nail care done, but has not been seen for a year. Appointment made at this time. Images from the original note were not included. Jackeline Vargas Tayler RN; [facility] 3 hours ago (11:18 AM) Have her present to urgent care if she feels that she needs a post-op shoe Jackeline Vargas DPM Pt states she rammed her toe on the left foot and it is bruised/swollen. Pt states she knows it is not broke. I know the drill. Pt requesting a shoe/boot with the smaller sole to aid her in getting around as she cannot wear her normal shoes at this time. Pt states left foot, shoe size 8. Please review and advise as necessary. Thanks. documented in this encounter [facility] 10-20-2022 Miscellaneous Notes Patient has been identified by name and date of : Yes Patient phones for refill(s): Requested Prescriptions Pending Prescriptions Disp Refills fluticasone (FLONASE) 50 mcg/actuation nasal spray 1 Each 5 Sig: Use 2 Sprays in each nostril once daily. Date of last office visit in primary care: NATHANIEL 09/12/22 NOV 12/14/22 Last 2 Encounter Wt Readings: Date: Wt: 09/12/2022 70.4 kg (155 lb 3.2 oz) 07/25/2022 71.2 kg (157 lb) Please advise. Thank you. CRISTOPHER Christensen documented in this encounter [facility] 10-18-2022 Note HNO ID: [id number] Author: Donna Wilkinson Mammo Tech Service: ? Author Type: Supervisor Self Service Store Type: Progress Notes Filed: 10/18/2022 11:26 AM Note Text: Radiology Service Progress Note PATIENT NAME: Yamilex Maldonado DATE OF SERVICE: October 18, 2022 TIME: 11:01 AM PATIENT IDENTITY VERIFICATION COMPLETED USING TWO (2) IDENTIFIERS: Name and Date of confirmed by patient verbally. FALL SCREENING: Has the patient had 2 falls in the last year or 1 fall with injury or currently using an Ambulatory Assistive Device (Walker, Cane, Wheelchair, Crutches, etc.)? No PATIENT GENDER DATA: Female. status: : No status: NO. PATIENT RELEVANT IMPLANT DATA REVIEWED: Not Applicable RADIOLOGY DEPARTMENT: Mammography PERIPHERAL IV DATA: Not applicable SIGNED BY: Angie Goddard October 18, 2022 11:01 AM [facility] 10-18-2022 History of Presen t illness Narrative Radiology Service Progress Note PATIENT NAME: Yamilex Maldonado DATE OF SERVICE: October 18, 2022 TIME: 11:01 AM PATIENT IDENTITY VERIFICATION COMPLETED USING TWO (2) IDENTIFIERS: Name and Date of confirmed by patient verbally. FALL SCREENING: Has the patient had 2 falls in the last year or 1 fall with injury or currently using an Ambulatory Assistive Device (Walker, Cane, Wheelchair, Crutches, etc.)? No PATIENT GENDER DATA: Female. status: : No status: NO. PATIENT RELEVANT IMPLANT DATA REVIEWED: Not Applicable RADIOLOGY DEPARTMENT: Mammography PERIPHERAL IV DATA: Not applicable SIGNED BY: Donna Wilkinson Aviiro Carol Ann October 18, 2022 11:01 AM documented in this encounter [facility] 09-19-2022 Note HNO ID: [id number] Author: RT Chago(R) Service: ? Author Type: Technologist Type: Progress Notes Filed: 09/19/2022 9:04 AM Note Text: Radiology Service Progress Note PATIENT NAME: Yamilex Maldonado DATE OF SERVICE: September 19, 2022 TIME: 8:53 AM PATIENT IDENTITY VERIFICATION COMPLETED USING TWO (2) IDENTIFIERS: Name and Date of confirmed by patient verbally. FALL SCREENING: Has the patient had 2 falls in the last year or 1 fall with injury or currently using an Ambulatory Assistive Device (Walker, Cane, Wheelchair, Crutches, etc.)? Yes, Patient High Risk for Falls What interventions were put in place to prevent falls during this visit? Increased Observations by Caregivers PATIENT GENDER DATA: Female. status: : No status: NO. PATIENT RELEVANT IMPLANT DATA REVIEWED: Not Applicable RADIOLOGY DEPARTMENT: General X-ray: Exam(s) Completed: Pelvis X-Ray: Pelvis with Hip Bilateral and Wt. Bearing PERIPHERAL IV DATA: Not applicable SIGNED BY: RT Chago(R) September 19, 2022 8:53 AM [facility] 09-14-2022 Miscellaneous Notes OkCopayt message sent to pt notifying her of Urine Cx results. Maude Earl Ma ----- Message from Ashli Silva PA-C sent at 09/14/2022 5:50 AM EDT ----- Please advise growth too low for UTI. Thanks, Jj Silva PA-C documented in this encounter [facility] 09-12-2022 Note HNO ID: [id number] Author: Ashli Silva PA-C Service: ? Author Type: Physician Sign Hanger Supervisor Type: Progress Notes Filed: 09/12/2022 12:52 PM Note Text: 66 year old female with c/o here for follow up Current concerns: Pain in hips, back, legs, ankles, neck. Hurts from tailbone to neck. Nothing new, just feels worse. Feels hips are out of whack . Digestive issues persist. Feels bloated with epigastric pain after eating which lasts for a few hours. Back with kids, allergies acting up due to cats. Had cataracts done bilaterally. Waiting for glasses. Hypertensive kidney disease with stage 3a chronic kidney disease (hcc) (primary encounter diagnosis) Current meds: none Patient is compliant with meds Yes Monitors bp at home: No. If yes, readings: Denies side effects: Yes. Chest pain: No. Dyspnea: No. Edema: No. Palpitations: No. Syncope: No. Headache: No. Dizziness: No. Last 3 Encounter BP Readings: Date: BP: 07/25/2022 120/66 07/14/2022 120/68 07/01/2022 126/82 Last 2 Encounter Wt Readings: Date: Wt: 07/25/2022 71.2 kg (157 lb) 07/14/2022 72.6 kg (160 lb) Component Latest Ref Rng AND Units 08/14/2019 09/05/2021 Protein, Total 6.3 - 8.0 g/dL 6.9 6.4 Albumin 3.9 - 4.9 g/dL 4.0 4.0 Calcium 8.5 - 10.2 mg/dL 9.2 8.8 Bilirubin, Total 0.2 - 1.3 mg/dL 0.2 0.3 Alkaline Phosphatase 34 - 123 U/L 63 67 AST 13 - 35 U/L 16 16 Glucose 74 - 99 mg/dL 113 (H) 117 (H) BUN 7 - 21 mg/dL 17 22 (H) Creatinine 0.58 - 0.96 mg/dL 1.07 (H) 1.03 (H) Sodium 136 - 144 mmol/L 143 140 Potassium 3.7 - 5.1 mmol/L 4.1 4.0 Chloride 97 - 105 mmol/L 108 (H) 105 CO2 22 - 30 mmol/L 26 24 Anion Gap 9 - 18 mmol/L 9 11 ALT 7 - 38 U/L 15 14 eGFR- >60 eGFR-All Other Races . 51 eGFR >=60 mL/min/1.73mA? 60 Hyperlipidemia with target ldl less than 70 Hyperlipidemia: Current medication Pravastatin 20mg daily HS Taking medication consistently No Observing low cholesterol high fiber diet Yes Muscle aches Yes Stomach complaints/ diarrhea No Last 2 Lipids: Component Latest Ref Rng AND Units 08/14/2019 01/19/2020 Cholesterol, Total <200 mg/dL 166 168 Triglyceride <150 mg/dL 125 114 HDL Cholesterol >39 mg/dL 47 46 LDL Cholesterol <100 mg/dL 94 99 Non HDL Cholesterol <130 mg/dL 119 122 Fasting Time hrs 12 10 VLDL Cholesterol <30 mg/dL 25 23 TC:HDL Ratio <5.10 3.53 3.65 LDL:HDL Ratio <2.54 2.00 2.15 Type 2 diabetes mellitus with stage 3a chronic kidney disease, without long-term current use of insulin (hcc) Diabetes Mellitus Type 2: Current medications: Metformin 850mg twice a day with meals Taking medication as directed consistently? Yes Medication side effects: Medical Issues / Complications: hyperlipidemia Checking blood sugars at home? Yes. Fasting [phone]; post meal: 101-116 Watching diet? somewhat Physical Activity: Sedentary Hypoglycemic spells? No Any visual disturbance? No other than recent cataract surgery Chest pain? No New numbness, tingling or loss of sensation? No Any recent foot problems, sores or rashes? No Any recent or sudden weight loss? No Change in urination? No. If yes: Any recent illness? No Last eye exam: up to date. Last foot exam: due. HBA1C: Hemoglobin A1C (%) Date Value 09/12/2021 6.4 10/12/2020 6.2 08/14/2019 6.4 ) CMP: Glucose 117 09/05/2021 BUN 22 09/05/2021 Creatinine 1.13 04/05/2022 Sodium 140 09/05/2021 Potassium 4.0 09/05/2021 Chloride 105 09/05/2021 CO2 24 09/05/2021 Protein, Total 6.4 09/05/2021 Albumin 4.0 09/05/2021 Calcium 8.8 09/05/2021 Alkaline Phosphatase 67 09/05/2021 Bilirubin, Total 0.3 09/05/2021 AST 16 09/05/2021 ALT 14 09/05/2021 Component Latest Ref Rng AND Units 08/14/2019 09/20/2021 Creatinine, Ur Random (UCRR) 20.0 - 300.0 mg/dL 154.3 142.2 Albumin, Urine Random mg/L <12.0 30.1 Albumin/Creat Ratio <30 mg/g Not calculated 21 Last 2 Encounter Wt Readings: Date: Wt: 07/25/2022 71.2 kg (157 lb) 07/14/2022 72.6 kg (160 lb) Moderate persistent asthma, uncomplicated Tobacco abuse Batch Attendant: none. Interval history: no change Current medications: Proventil HFA 2-4 puffs prn wheezing Flonase NS Worsening shortness of breath: No. Cough: Yes. Multiple daily episodes, mostly in the morning Wheezing: Yes. Smoking: Yes. 1PPD Compliant with medications: Yes. Using rescue inhaler: maybe once or twice a week. Urge incontinence Urinating all day and night 3-4 times at night Hourly during the day. Essential tremor Mild, intermittent. Worse if anxious or in a hurry. Not interrupting ADLs Lumbar radiculopathy Current medications: Tylenol 650mg CR q8h Chronic back pain. Thought she should take Robaxin with Tylenol but I reminded her it was tramadol she shouldn't use together Vitamin d deficiency Continues supplement. Depression with anxiety Current medications: Paxil 40mg daily Anxiety stable, somewhat incre (more content not included)... [facility] 09-12-2022 History of Presen t illness Narrative 66 year old female with c/o here for follow up Current concerns: Pain in hips, back, legs, ankles, neck. Hurts from tailbone to neck. Nothing new, just feels worse. Feels hips are out of whack . Digestive issues persist. Feels bloated with epigastric pain after eating which lasts for a few hours. Back with kids, allergies acting up due to cats. Had cataracts done bilaterally. Waiting for glasses. Hypertensive kidney disease with stage 3a chronic kidney disease (hcc) (primary encounter diagnosis) Current meds: none Patient is compliant with meds Yes Monitors bp at home: No. If yes, readings: Denies side effects: Yes. Chest pain: No. Dyspnea: No. Edema: No. Palpitations: No. Syncope: No. Headache: No. Dizziness: No. Last 3 Encounter BP Readings: Date: BP: 07/25/2022 120/66 07/14/2022 120/68 07/01/2022 126/82 Last 2 Encounter Wt Readings: Date: Wt: 07/25/2022 71.2 kg (157 lb) 07/14/2022 72.6 kg (160 lb) Component Latest Ref Rng & Units 08/14/2019 09/05/2021 Protein, Total 6.3 - 8.0 g/dL 6.9 6.4 Albumin 3.9 - 4.9 g/dL 4.0 4.0 Calcium 8.5 - 10.2 mg/dL 9.2 8.8 Bilirubin, Total 0.2 - 1.3 mg/dL 0.2 0.3 Alkaline Phosphatase 34 - 123 U/L 63 67 AST 13 - 35 U/L 16 16 Glucose 74 - 99 mg/dL 113 (H) 117 (H) BUN 7 - 21 mg/dL 17 22 (H) Creatinine 0.58 - 0.96 mg/dL 1.07 (H) 1.03 (H) Sodium 136 - 144 mmol/L 143 140 Potassium 3.7 - 5.1 mmol/L 4.1 4.0 Chloride 97 - 105 mmol/L 108 (H) 105 CO2 22 - 30 mmol/L 26 24 Anion Gap 9 - 18 mmol/L 9 11 ALT 7 - 38 U/L 15 14 eGFR- >60 eGFR-All Other Races . 51 eGFR >=60 mL/min/1.73m 60 Hyperlipidemia with target ldl less than 70 Hyperlipidemia: Current medication Pravastatin 20mg daily HS Taking medication consistently No Observing low cholesterol high fiber diet Yes Muscle aches Yes Stomach complaints/ diarrhea No Last 2 Lipids: Component Latest Ref Rng & Units 08/14/2019 01/19/2020 Cholesterol, Total <200 mg/dL 166 168 Triglyceride <150 mg/dL 125 114 HDL Cholesterol >39 mg/dL 47 46 LDL Cholesterol <100 mg/dL 94 99 Non HDL Cholesterol <130 mg/dL 119 122 Fasting Time hrs 12 10 VLDL Cholesterol <30 mg/dL 25 23 TC:HDL Ratio <5.10 3.53 3.65 LDL:HDL Ratio <2.54 2.00 2.15 Type 2 diabetes mellitus with stage 3a chronic kidney disease, without long-term current use of insulin (hcc) Diabetes Mellitus Type 2: Current medications: Metformin 850mg twice a day with meals Taking medication as directed consistently? Yes Medication side effects: Medical Issues / Complications: hyperlipidemia Checking blood sugars at home? Yes. Fasting [phone]; post meal: 101-116 Watching diet? somewhat Physical Activity: Sedentary Hypoglycemic spells? No Any visual disturbance? No other than recent cataract surgery Chest pain? No New numbness, tingling or loss of sensation? No Any recent foot problems, sores or rashes? No Any recent or sudden weight loss? No Change in urination? No. If yes: Any recent illness? No Last eye exam: up to date. Last foot exam: due. HBA1C: Hemoglobin A1C (%) Date Value 09/12/2021 6.4 10/12/2020 6.2 08/14/2019 6.4 ) CMP: Glucose 117 09/05/2021 BUN 22 09/05/2021 Creatinine 1.13 04/05/2022 Sodium 140 09/05/2021 Potassium 4.0 09/05/2021 Chloride 105 09/05/2021 CO2 24 09/05/2021 Protein, Total 6.4 09/05/2021 Albumin 4.0 09/05/2021 Calcium 8.8 09/05/2021 Alkaline Phosphatase 67 09/05/2021 Bilirubin, Total 0.3 09/05/2021 AST 16 09/05/2021 ALT 14 09/05/2021 Component Latest Ref Rng & Units 08/14/2019 09/20/2021 Creatinine, Ur Random (UCRR) 20.0 - 300.0 mg/dL 154.3 142.2 Albumin, Urine Random mg/L <12.0 30.1 Albumin/Creat Ratio <30 mg/g Not calculated 21 Last 2 Encounter Wt Readings: Date: Wt: 07/25/2022 71.2 kg (157 lb) 07/14/2022 72.6 kg (160 lb) Moderate persistent asthma, uncomplicated Tobacco abuse Batch Attendant: none. Interval history: no change Current medications: Proventil HFA 2-4 puffs prn wheezing Flonase NS Worsening shortness of breath: No. Cough: Yes. Multiple daily episodes, mostly in the morning Wheezing: Yes. Smoking: Yes. 1PPD Compliant with medications: Yes. Using rescue inhaler: maybe once or twice a week. Urge incontinence Urinating all day and night 3-4 times at night Hourly during the day. Essential tremor Mild, intermittent. Worse if anxious or in a hurry. Not interrupting ADLs Lumbar radiculopathy Current medications: Tylenol 650mg CR q8h Chronic back pain. Thought she should take Robaxin with Tylenol but I reminded her it was tramadol she shouldn't use together Vitamin d deficiency Continues supplement. Depression with anxiety Current medications: Paxil 40mg daily Anxiety stable, somewhat increased moving back in with children Overall managing. Chronic constipation Current medications: Lactulose 15mL daily as needed Using twice a day with good results. Eats and feels like everything settles into epigastric area, takes a couple hours to alleviate. Weight stable. No burping or belching unless eats cucumbers. Osteoporosis Current medications: Ibandronate 150mg monthly: never started. Due for 2 year recheck. HISTORIES FAMILY HISTORY Adopted: Yes Problem Relation Age of Onset Diabetes Father Heart Father Hypertension Father Lipids Father Diabetes Maternal Grandmother None Sister Diabetes Daughter Cancer Sister thyroid. PAST MEDICAL HISTORY Diagnosis Date Adjustment disorder with depressed mood Arthritis Kidney stones Mass of right parotid gland 04/14/2019 FNA right parotid:Negative for malignant cells. Warthin's tumor. 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 and being monitored by PCP Type II or unspecified type diabetes mellitus without mention of complication, not stated as uncontrolled PAST SURGICAL HISTORY Procedure Laterality Date APPENDECTOMY APPENDECTOMY ARTHRP INTERPOS INTERCARPAL/METACARPAL JOINTS Right 01/23/2020 Right thumb CMC arthroplasty with LRTI, Palmaris longus CHOLECYSTECTOMY COLONOSCOPY DIAGNOSTIC 03/03/2022 dysplastic polyp, repeat in [address] MAXILLOFACIAL WO/ CONT Bilateral mild ethmoid thickening bilaterally ESWL kidney stones OOPHORECTOMY PARTIAL/TOTAL UNI/BI bilaterally with hysterectomy PAST SURGICAL HISTORY OF tubal preg PAST SURGICAL HISTORY OF remote left leg/ ankle with plates and screws PAST SURGICAL HISTORY OF Left 11/29/2011 Bunion Removed PAST SURGICAL HISTORY OF Right 04/2019 parotid mass excision SINUS SURGERY HX 02/11/2018 TONSILLECTOMY HX TOT ABD HYST W/WO RMVL TUBE OVARY W/COLPURETHRXY VAGINAL HYSTERECTOMY Social History Tobacco Use Smoking status: Every Day Packs/day: 1.00 Years: 44.00 Pack years: 44.00 Types: Cigarettes Smokeless tobacco: Never Vaping Use Vaping Use: Never used Substance Use Topics Alcohol use: No Drug use: No ACTIVE PROBLEM LIST Well Controlled 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) Hyperlipidemia With Target Ldl Less Than 70 Depression With Anxiety Fibromyalgia Osteoporosis Tobacco Abuse Atrophic Vaginitis Hallux Valgus, Acquired Dyspareunia Vitamin D Deficiency Degenerative Disc Disease Scoliosis Lumbar Radiculopathy Spinal Stenosis of Lumbar Region Without Neurogenic Claudication Essential Tremor Urge Incontinence History of Thyroid Disease Stage 3a Chronic Kidney Disease (Hcc) Moderate Persistent Asthma, Uncomplicated Fracture of Distal End of Right Radius Chronic Rhinitis Abnormal Colonoscopy Type 2 Diabetes Mellitus With Stage 3a Chronic Kidney Disease, Without Long-Term Current Use of Insulin (Hcc) Hypertensive Kidney Disease With Stage 3a Chronic Kidney Disease (Hcc) Adductor Tendonitis Closed Head Injury With Concussion Depression, Recurrent (Hcc) Current Outpatient Medications Medication Sig Dispense Refill PARoxetine (PAXIL) 40 mg tablet Take 1 tablet by mouth once daily. 30 tablet 5 lactulose (DUPHALAC, CONSTULOSE) 10 g/15 mL soln Take 15 mL by mouth once daily. 240 mL 2 fluticasone (FLONASE) 50 mcg/actuation nasal spray Use 2 Sprays in each nostril once daily. 1 Each 5 albuterol HFA (PROVENTIL HFA, VENTOLIN HFA) 90 mcg/actuation inhaler Inhale 2-4 Puffs as instructed every 2 hours as needed for wheezing/shortness of breath. 18 g 1 methocarbamol (ROBAXIN) 500 mg tablet Take 1 tablet by mouth twice daily as needed. 60 tablet 2 Cholecalciferol, Vitamin D3, 50 mcg (2,000 unit) cap Take 1 capsule by mouth once daily. 90 capsule 3 metFORMIN (GLUCOPHAGE) 850 mg tablet Take 1 tablet by mouth twice daily with meals. 60 tablet 11 pravastatin (PRAVACHOL) 20 mg tablet Take 1 tablet by mouth daily at bedtime. 90 tablet 3 Ibandronate 150 mg tablet Take 1 tablet by mouth once every month. In AM with cup of water on empty stomach. Nothing else by mouth and stay upright for 60 min. 3 tablet 4 acetaminophen 650 mg CR tablet Take 650 mg by mouth every 8 hours as needed. blood sugar diagnostic (BLOOD GLUCOSE TEST) test strip Test blood sugar(s) 2 times daily. Dx: Type 2 DM - Uncontrolled E11.65 Insulin: No 200 Strip 3 COMPOUNDED PRESCRIPTION Powerstep Original Full Length` 1 Each 0 No current facility-administered medications for this visit. SPIROMETRY Never done LUNG CANCER SCREENING Never done COVID-19 VACCINE(3 - Booster for Moderna series) due on 10/14/2020 DIABETIC FOOT EXAM due on 06/01/2022 HBA1C due on 06/14/2022 HEMOGLOBIN/HEMATOCRIT due on 09/05/2022 LDL CHOLESTEROL due on 09/05/2022 URINE ALBUMIN:CREATININE RATIO due on 09/20/2022 EXAM: BP 102/60 Pulse 74 Ht 160 cm (5' 3 ) Wt 70.4 kg (155 lb 3.2 oz) SpO2 96% BMI 27.49 kg/m Pleasant overweight adult woman in no acute distress. Alert and oriented all spheres. Normal affect and cognition. Speech normal. No deficits to learning or comprehension. Skin warm, dry, pink to lips and nailbeds. Normal turgor. Respirations regular and unlabored. HEENT: NCAT. No scleral icterus or conjunctival injection. TM's clear. Nose and oropharynx free from injection or lesion. Oral membranes moist and pink. No cervical lymph nodes. Thyroid non-tender, no masses, or enlargement. Carotids pulses 2+/4+ without bruits. No JVD with HOB at 30 degrees. Chest is normal shape. Lungs are clear to all lopez with good air exchange through out. HRRR without murmur or gallop. No lifts, heaves, or rubs. Abdomen: active bowel sounds throughout, soft, nontender, no masses or organomegaly. No CVAT. Extrem: no clubbing, cyanosis, edema. Distal pulses 2+/4, prompt capillary refill. Right knee painful with full extension. Otherwise knee ROM WNL. Some pain with external rotation bilateral hips, non-tender of greater trochanteric bursa. Good ROM both shoulders. Mild restricted lateral rotation and side bending with neck. Has muscle tenderness all over: shoulders, arms, hand, hips, thighs, calves. Extrem: no clubbing or cyanosis. Edema: none. Mild varicosities. Extremities are warm and pink with prompt capillary refill. Feet:Shoes and socks removed, Are you having foot pain no, No deformities, ulcers, calluses, normal distal pulses, and sensitive to 10 gm monofilament ASSESSMENT/PLAN: 1. Hypertensive kidney disease with stage 3a chronic kidney disease (HCC) - ICD9: 403.90, 585.3, ICD10: I12.9, N18.31 (primary diagnosis) - Controlled - Continue current medications - Recommend home blood pressure monitoring, to bring results to next visit - Encouraged sodium restriction, DASH or Mediterranean diet - Recommend regular aerobic exercise - eGFR: Stable and improved - Counseled on avoiding NSAIDs, adequate hydration - COMP METABOLIC PANEL - CBC 2. Hyperlipidemia with target LDL less than 70 - ICD9: 272.4, ICD10: E78.5 - Controlled - Counseled on healthy diet and regular exercise - HOLD pravastatin x 4 weeks to see if affects myalgia. Mychart progress. - COMP METABOLIC PANEL - LIPID PANEL BASIC 3. Type 2 diabetes mellitus with stage 3a chronic kidney disease, without long-term current use of insulin ([facility]) - ICD9: 250.40, 585.3, ICD10: E11.22, N18.31 - Controlled - Continue current medications - eGFR: Stable - Albuminuria: 21 - Counseled on avoiding NSAIDs, adequate hydration - ALBUMIN/CREAT RATIO RND UR - HGB A1C 4. Moderate persistent asthma, uncomplicated - ICD9: 493.90, ICD10: J45.40 - Mild intermittent asthma stable - Continue current medications - Avoidance of triggers recommended 5. Tobacco abuse - ICD9: 305.1, ICD10: Z72.0 - Cessation encouraged. - Physiologic and physical aspects of tobacco addiction as well as strategies for quitting were discussed. - Counseling was given focusing on the harmful effects of this addiction especially given the patient's medical condition(s) which will be worsened because of the chemicals in tobacco. 6. History of thyroid disease - ICD9: V12.29, ICD10: Z86.39 No active issues 7. Urge incontinence - ICD9: 788.31, ICD10: N39.41 Some mixed incontinence with overflow Check urine, consider cholinergics/ PT/ urogyn consult - UA DIP, URINE (POC) 8. Essential tremor - ICD9: 333.1, ICD10: G25.0 Stable, mild. 9. Lumbar radiculopathy - ICD9: 724.4, ICD10: M54.16 Chronic, stable Continue current meds, using robaxin as ordered with Tylenol. Intolerant to gabapentin, SNRI's were ineffective. Consider tricyclic. Trying to avoid opiates. 10. Vitamin D deficiency - ICD9: 268.9, ICD10: E55.9 - VITAMIN D 25 HYDROXY 11. Depression with anxiety - ICD9: 300.4, ICD10: F41.8 Stable on medication: continue - COMP METABOLIC PANEL - CBC 12. Chronic constipation - ICD9: 564.00, ICD10: K59.09 - LACTULOSE 10 G/15 ML ORAL SOLN (120ML) 13. Osteoporosis, unspecified osteoporosis type, unspecified pathological fracture presence - ICD9: 733.00, ICD10: M81.0 - Reviewed the need for Calcium and Vitamin D supplements and weight bearing exercise as tolerated 14. Age-related osteoporosis without current pathological fracture - ICD9: 733.01, ICD10: M81.0 - Reviewed the need for Calcium and Vitamin D supplements and weight bearing exercise as tolerated - DXA-AXIAL SKELETON D/C ibandronate due to epigastric issues. Consider Prolia pending results. 15. Epigastric pain - ICD9: 789.06, ICD10: R10.13 Normal GE study. Not sure why EGD wasn't done with colonoscopy as requested. Resume omeprazole- not sure why it was stopped, nothing in record. - OMEPRAZOLE 20 MG CAPSULE,DELAYED RELEASE 16. Urinary frequency - ICD9: 788.41, ICD10: R35.0 recurrent - UA positive for deborah esterase - Patient education for prevention given - UA DIP, URINE (POC) - URINALYSIS, WITH MICROSCOPIC - URINE CULTURE 17. Bilateral hip pain - ICD9: 719.45, ICD10: M25.551, M25.552 - XR HIP BILATERAL 5V PEL/AP/LAT EACH HIP 18. Polyarthralgia - ICD9: 719.49, ICD10: M25.50 Past checks have been WNL. I suspect fibromyalgia in this patient. - SED RATE WESTERGREN - MIGUEL BY IFA SCREEN - URIC ACID BLOOD 55 minute visit with 15 minutes face to face counseling and question answering, reviewing medications Ashli Silva PA-C documented in this encounter [facility] 09-12-2022 Instructions Ashli Silva PA-C - 09/12/2022 8:11 AM EDT BONE MINERAL DENSITY PATIENT INSTRUCTIONS Bone mineral density testing measures the amount of calcium in certain parts of your bones. This information determines how strong your bones are. The test is used to detect osteoporosis, a disease in which the bone's mineral content and density are low, increasing a person's risk of fractures. The lumbar spine (lower back) and the hip are the skeletal sites usually examined. For the test, remember that: 1. You cannot take this test if you are . 2. Eat a normal diet on the day of the test. 3. Take your medications as you normally would. 4. DO NOT take calcium supplements (such as Tums) for 24 hours before the test. 5. On the day of the test, leave valuables (jewelry or credit cards) at home. 6. The test should be performed prior to oral, rectal or IV contrast studies, or at least 7 days after any of these studies. For the test, you may be asked to wear a hospital gown. You will lie on your back, on a padded table, in a comfortable position. Generally, you can resume your usual activities immediately. Hold pravastatin (cholesterol pill) for 1 month and report on muscle progress. Take Robaxin twice a day with Tylenol. documented in this encounter [facility] documented in this encounter [facility]05-02-2023 NoteHNO ID: [id number] Author: Ashli Silva PA-C Service: ? Author Type: Physician Sign Hanger Supervisor Type: Progress Notes Filed: 07/25/2022 2:16 PM Note Text: 66 year old female with c/o persistent feeling like head is wobbly, pressure in ears, dizziness. Not spinning but rocking, like on a ship, comes and goes. Also lightheaded. Able to walk straight. No vomiting, nausea. 07/17/2022 went to [facility] ER after last visit. Records reviewed: VSS, CT head negative for bleed, CT with only known degenerative changes. Taking Tylenol Arthritis helps neck a little bit. Doesn't feel dizzy if resting or laying in bed. Worse if stressed, feels worse. Anxious about upcoming cataract surgery. Asking for something for nerves HISTORIES FAMILY HISTORY Adopted: Yes Problem Relation Age of Onset Diabetes Father Heart Father Hypertension Father Lipids Father Diabetes Maternal Grandmother None Sister Diabetes Daughter Cancer Sister thyroid. PAST MEDICAL HISTORY Diagnosis Date Adjustment disorder with depressed mood Arthritis Kidney stones Mass of right parotid gland 04/14/2019 FNA right parotid:Negative for malignant cells. Warthin's tumor. 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 and being monitored by PCP Type II or unspecified type diabetes mellitus without mention of complication, not stated as uncontrolled PAST SURGICAL HISTORY Procedure Laterality Date APPENDECTOMY APPENDECTOMY ARTHRP INTERPOS INTERCARPAL/METACARPAL JOINTS Right 01/23/2020 Right thumb CMC arthroplasty with LRTI, Palmaris longus CHOLECYSTECTOMY COLONOSCOPY DIAGNOSTIC 03/03/2022 dysplastic polyp, repeat in [address] MAXILLOFACIAL WO/ CONT Bilateral mild ethmoid thickening bilaterally ESWL kidney stones OOPHORECTOMY PARTIAL/TOTAL UNI/BI bilaterally with hysterectomy PAST SURGICAL HISTORY OF tubal preg PAST SURGICAL HISTORY OF remote left leg/ ankle with plates and screws PAST SURGICAL HISTORY OF Left 11/29/2011 Bunion Removed PAST SURGICAL HISTORY OF Right 04/2019 parotid mass excision SINUS SURGERY HX 02/11/2018 TONSILLECTOMY HX TOT ABD HYST W/WO RMVL TUBE OVARY W/COLPURETHRXY VAGINAL HYSTERECTOMY Social History Tobacco Use Smoking status: Every Day Packs/day: 1.00 Years: 44.00 Pack years: 44.00 Types: Cigarettes Smokeless tobacco: Never Vaping Use Vaping Use: Never used Substance Use Topics Alcohol use: No Drug use: No ACTIVE PROBLEM LIST Well Controlled 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) Hyperlipidemia With Target Ldl Less Than 70 Depression With Anxiety Fibromyalgia Osteoporosis Tobacco Abuse Atrophic Vaginitis Hallux Valgus, Acquired Dyspareunia Vitamin D Deficiency Degenerative Disc Disease Scoliosis Lumbar Radiculopathy Spinal Stenosis of Lumbar Region Without Neurogenic Claudication Essential Tremor Urge Incontinence History of Thyroid Disease Stage 3a Chronic Kidney Disease (Hcc) Moderate Persistent Asthma, Uncomplicated Fracture of Distal End of Right Radius Chronic Rhinitis Abnormal Colonoscopy Type 2 Diabetes Mellitus With Stage 3a Chronic Kidney Disease, Without Long-Term Current Use of Insulin (Hcc) Hypertensive Kidney Disease With Stage 3a Chronic Kidney Disease (Hcc) Adductor Tendonitis Current Outpatient Medications Medication Sig Dispense Refill guaiFENesin 1,200 mg Ta12 Take 1 tablet by mouth every 12 hours. 30 tablet 1 benzonatate (TESSALON PERLE) 100 mg capsule Take 1-2 capsules tid prn 30 capsule 0 lactulose (DUPHALAC, CONSTULOSE) 10 g/15 mL soln Take 15 mL by mouth once daily. 240 mL 2 famotidine (PEPCID) 20 mg tablet Take 1 tablet by mouth twice daily. 60 tablet 5 PARoxetine (PAXIL) 40 mg tablet Take 1 tablet by mouth once daily. 30 tablet 5 fluticasone (FLONASE) 50 mcg/actuation nasal spray Use 2 Sprays in each nostril once daily. 1 Each 5 albuterol HFA (PROVENTIL HFA, VENTOLIN HFA) 90 mcg/actuation inhaler Inhale 2-4 Puffs as instructed every 2 hours as needed for wheezing/shortness of breath. 18 g 1 methocarbamol (ROBAXIN) 500 mg tablet Take 1 tablet by mouth twice daily as needed. 60 tablet 2 Cholecalciferol, Vitamin D3, 50 mcg (2,000 unit) cap Take 1 capsule by mouth once daily. 90 capsule 3 metFORMIN (GLUCOPHAGE) 850 mg tablet Take 1 tablet by mouth twice daily with meals. 60 tablet 11 pravastatin (PRAVACHOL) 20 mg tablet Take 1 tablet by mouth daily at bedtime. 90 tablet 3 Ibandronate 150 mg tablet Take 1 tablet by mouth once every month. In AM with cup of water on empty stomach. Nothing else by mouth and stay upright for 60 min. 3 tablet 4 acetaminophen 650 mg CR tablet Take 650 mg by mouth every 8 hours as needed. blood sugar diagnostic (BLOOD GLUCOSE TEST) test strip Test blood sugar(s) 2 times daily. Dx: Type 2 DM - Uncontrolled (more content not included)...[facility]05-02-2023 History of Present illness Narrative* Ashli Silva PA-C - 07/25/2022 1:20 PM EDT 66 year old female with c/o persistent feeling like head is wobbly, pressure in ears, dizziness. Not spinning but rocking, like on a ship, comes and goes. Also lightheaded. Able to walk straight. No vomiting, nausea. 07/17/2022 went to [facility] ER after last visit. Records reviewed: VSS, CT head negative for bleed, CT with only known degenerative changes. Taking Tylenol Arthritis helps neck a little bit. Doesn't feel dizzy if resting or laying in bed. Worse if stressed, feels worse. Anxious about upcoming cataract surgery. Asking for something for nerves HISTORIES FAMILY HISTORY Adopted: Yes Problem Relation Age of Onset Diabetes Father Heart Father Hypertension Father Lipids Father Diabetes Maternal Grandmother None Sister Diabetes Daughter Cancer Sister thyroid. PAST MEDICAL HISTORY Diagnosis Date Adjustment disorder with depressed mood Arthritis Kidney stones Mass of right parotid gland 04/14/2019 FNA right parotid:Negative for malignant cells. Warthin's tumor. 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 and being monitored by PCP Type II or unspecified type diabetes mellitus without mention of complication, not stated as uncontrolled PAST SURGICAL HISTORY Procedure Laterality Date APPENDECTOMY APPENDECTOMY ARTHRP INTERPOS INTERCARPAL/METACARPAL JOINTS Right 01/23/2020 Right thumb CMC arthroplasty with LRTI, Palmaris longus CHOLECYSTECTOMY COLONOSCOPY DIAGNOSTIC 03/03/2022 dysplastic polyp, repeat in [address] MAXILLOFACIAL WO/ CONT Bilateral mild ethmoid thickening bilaterally ESWL kidney stones OOPHORECTOMY PARTIAL/TOTAL UNI/BI bilaterally with hysterectomy PAST SURGICAL HISTORY OF tubal preg PAST SURGICAL HISTORY OF remote left leg/ ankle with plates and screws PAST SURGICAL HISTORY OF Left 11/29/2011 Bunion Removed PAST SURGICAL HISTORY OF Right 04/2019 parotid mass excision SINUS SURGERY HX 02/11/2018 TONSILLECTOMY HX TOT ABD HYST W/WO RMVL TUBE OVARY W/COLPURETHRXY VAGINAL HYSTERECTOMY Social History Tobacco Use Smoking status: Every Day Packs/day: 1.00 Years: 44.00 Pack years: 44.00 Types: Cigarettes Smokeless tobacco: Never Vaping Use Vaping Use: Never used Substance Use Topics Alcohol use: No Drug use: No ACTIVE PROBLEM LIST Well Controlled 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) Hyperlipidemia With Target Ldl Less Than 70 Depression With Anxiety Fibromyalgia Osteoporosis Tobacco Abuse Atrophic Vaginitis Hallux Valgus, Acquired Dyspareunia Vitamin D Deficiency Degenerative Disc Disease Scoliosis Lumbar Radiculopathy Spinal Stenosis of Lumbar Region Without Neurogenic Claudication Essential Tremor Urge Incontinence History of Thyroid Disease Stage 3a Chronic Kidney Disease (Hcc) Moderate Persistent Asthma, Uncomplicated Fracture of Distal End of Right Radius Chronic Rhinitis Abnormal Colonoscopy Type 2 Diabetes Mellitus With Stage 3a Chronic Kidney Disease, Without Long-Term Current Use of Insulin (Hcc) Hypertensive Kidney Disease With Stage 3a Chronic Kidney Disease (Hcc) Adductor Tendonitis Current Outpatient Medications Medication Sig Dispense Refill guaiFENesin 1,200 mg Ta12 Take 1 tablet by mouth every 12 hours. 30 tablet 1 benzonatate (TESSALON PERLE) 100 mg capsule Take 1-2 capsules tid prn 30 capsule 0 lactulose (DUPHALAC, CONSTULOSE) 10 g/15 mL soln Take 15 mL by mouth once daily. 240 mL 2 famotidine (PEPCID) 20 mg tablet Take 1 tablet by mouth twice daily. 60 tablet 5 PARoxetine (PAXIL) 40 mg tablet Take 1 tablet by mouth once daily. 30 tablet 5 fluticasone (FLONASE) 50 mcg/actuation nasal spray Use 2 Sprays in each nostril once daily. 1 Each 5 albuterol HFA (PROVENTIL HFA, VENTOLIN HFA) 90 mcg/actuation inhaler Inhale 2-4 Puffs as instructedevery 2 hours as needed for wheezing/shortness of breath. 18 g 1 methocarbamol (ROBAXIN) 500 mg tablet Take 1 tablet by mouth twice daily as needed. 60 tablet 2 Cholecalciferol, Vitamin D3, 50 mcg (2,000 unit) cap Take 1 capsule by mouth once daily. 90 capsule3 metFORMIN (GLUCOPHAGE) 850 mg tablet Take 1 tablet by mouth twice daily with meals. 60 tablet 11 pravastatin (PRAVACHOL) 20 mg tablet Take 1 tablet by mouth daily at bedtime. 90 tablet 3 Ibandronate 150 mg tablet Take 1 tablet by mouth once every month. In AM with cup of water on emptystomach. Nothing else by mouth and stay upright for 60 min. 3 tablet 4 acetaminophen 650 mg CR tablet Take 650 mg by mouth every 8 hours as needed. blood sugar diagnostic (BLOOD GLUCOSE TEST) test strip Test blood sugar(s) 2 times daily. Dx: Type 2 DM - Uncontrolled E11.65 Insulin: No 200 Strip 3 COMPOUNDED PRESCRIPTION Powerstep Original Full Length` 1 Each 0 No current facility-administered medications for this visit. SPIROMETRY Never done LUNG CANCER SCREENING Never done COVID-19 VACCINE(3 - Booster for Moderna series) due on 10/14/2020 DIABETIC FOOT EXAM due on 06/01/2022 HBA1C due on 06/14/2022 EXAM: BP 120/66 Pulse 77 Wt 71.2 kg (157 lb) SpO2 97% BMI 27.81 kg/m Pleasant older adult woman who smells heavily of cigarettes in no acute distress. Alert and oriented all spheres. Normal affect and cognition. Speech normal. No deficits to learning or comprehension. Skin warm, dry, pink to lips and nailbeds. Normal turgor. Respirations regular and unlabored. HEENT: NCAT. No scleral icterus or conjunctival injection. TM's clear. Nose and oropharynx free from injection or lesion. Oral membranes moist and pink. No cervical lymph nodes. Thyroid non-tender, no masses, or enlargement. Carotids pulses 2+/4+ without bruits. No JVD with HOB at 30 degrees. Cervical ROM is limited- about the same as usual. Persistent tenderness in shoulders. Chest is normal shape. Lungs are clear to all lopez with good air exchange through out. HRRR without murmur or gallop. No lifts, heaves, or rubs. Extrem: no clubbing or cyanosis. Edema: none. Extremities are warm and pink with prompt capillary refill. Neuro: no focal weakness. PERRLA. EOMI. CN 2-12 individually tested and intact. No focal weakness. Romberg negative x 1 minute. Able to lift each foot with eyes closed briefly. Romberg negative for nystagmus. Able to walk heel to toe in tandem. ASSESSMENT/PLAN: 1. BPPV (benign paroxysmal positional vertigo), unspecified laterality - ICD9: 386.11, ICD10: H81.10 (primary diagnosis) Also having anxiety, needs something for procedure. May use once or twice a day. Hx of chronic use in past- cautioned on side effects. - LORAZEPAM 0.5 MG TABLET 2. Closed head injury with concussion, without loss of consciousness, sequela (HCC) - ICD9: 907.0, ICD10: S06.0X0S Mild concussion if at all. Patient seems very invested in this diagnosis which increases anxiety. 3. Depression, recurrent (HCC) - ICD9: 296.30, ICD10: F33.9 Stable. Ashli Silva PA-C Some of this note may have been copied and pasted for the purpose of history context and comparison. [facility] NoteHNO ID: [id number] Author: Ursula Gardner APRN.CNP Service: ? Author Type: Nurse Practitioner Type: Progress Notes Filed: 07/24/2022 7:39 PM Note Text: Pt logged in 29 minutes after start of her appointment time. Offered by nursing that she could stay logged in until provider had availability (next 3 patients were already arrived), or she could be rescheduled. Pt did not want to wait for provider and elected to be rescheduled. [facility] History of Present illness Narrative* Ursula Gardner APRN.CNP - 07/24/2022 7:37 PM EDT Pt logged in 29 minutes after start of her appointment time. Offered by nursing that she could staylogged in until provider had availability (next 3 patients were already arrived), or she could be rescheduled. Pt did not want to wait for provider and elected to be rescheduled. Ursula Gardner APRN.CNP [facility] NoteHNO ID: [id number] Author: RT Florentin(R) Service: Radiology Author Type: Technologist Type: Progress Notes Filed: 07/14/2022 3:36 PM Note Text: Radiology Service Progress Note PATIENT NAME: Yamilex Maldonado DATE OF SERVICE: July 14, 2022 TIME: 3:18 PM PATIENT IDENTITY VERIFICATION COMPLETED USING TWO (2) IDENTIFIERS: Name and Date of confirmed by patient verbally. FALL SCREENING: Has the patient had 2 falls in the last year or 1 fall with injury or currently using an Ambulatory Assistive Device (Walker, Cane, Wheelchair, Crutches, etc.)? No PATIENT GENDER DATA: Female. status: : No status: NO. PATIENT RELEVANT IMPLANT DATA REVIEWED: Yes RADIOLOGY DEPARTMENT: General X-ray: Exam(s) Completed: Spine X-Ray(s): Cervical AP / LAT / OBL Skull X-Ray PERIPHERAL IV DATA: Not applicable SIGNED BY: RT Florentin(R) July 14, 2022 3:18 [facility]04-21-2023 NoteHNO ID: [id number] Author: Ashli Silva PA-C Service: ? Author Type: Physician Sign Hanger Supervisor Type: Progress Notes Filed: 07/14/2022 5:20 PM Note Text: 66 year old female with c/o fell yesterday trying to sit on porch swing, went down on porch, swing hit her in the back of the head. No LOC or feeling dazed. Very tender over knot, head all over. Feels a little dizzy on standing. Neck hurts but able to move, drove herself here today.. Didn't want to go the ER so she came here. Taking Arthritis Tylenol for pain. HISTORIES FAMILY HISTORY Adopted: Yes Problem Relation Age of Onset Diabetes Father Heart Father Hypertension Father Lipids Father Diabetes Maternal Grandmother None Sister Diabetes Daughter Cancer Sister thyroid. PAST MEDICAL HISTORY Diagnosis Date Adjustment disorder with depressed mood Arthritis Kidney stones Mass of right parotid gland 04/14/2019 FNA right parotid:Negative for malignant cells. Warthin's tumor. 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 and being monitored by PCP Type II or unspecified type diabetes mellitus without mention of complication, not stated as uncontrolled PAST SURGICAL HISTORY Procedure Laterality Date APPENDECTOMY APPENDECTOMY ARTHRP INTERPOS INTERCARPAL/METACARPAL JOINTS Right 01/23/2020 Right thumb CMC arthroplasty with LRTI, Palmaris longus CHOLECYSTECTOMY COLONOSCOPY DIAGNOSTIC 03/03/2022 dysplastic polyp, repeat in [address] MAXILLOFACIAL WO/ CONT Bilateral mild ethmoid thickening bilaterally ESWL kidney stones OOPHORECTOMY PARTIAL/TOTAL UNI/BI bilaterally with hysterectomy PAST SURGICAL HISTORY OF tubal preg PAST SURGICAL HISTORY OF remote left leg/ ankle with plates and screws PAST SURGICAL HISTORY OF Left 11/29/2011 Bunion Removed PAST SURGICAL HISTORY OF Right 04/2019 parotid mass excision SINUS SURGERY HX 02/11/2018 TONSILLECTOMY HX TOT ABD HYST W/WO RMVL TUBE OVARY W/COLPURETHRXY VAGINAL HYSTERECTOMY Social History Tobacco Use Smoking status: Every Day Packs/day: 1.00 Years: 44.00 Pack years: 44.00 Types: Cigarettes Smokeless tobacco: Never Vaping Use Vaping Use: Never used Substance Use Topics Alcohol use: No Drug use: No ACTIVE PROBLEM LIST Well Controlled 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) Hyperlipidemia With Target Ldl Less Than 70 Depression With Anxiety Fibromyalgia Osteoporosis Tobacco Abuse Atrophic Vaginitis Hallux Valgus, Acquired Dyspareunia Vitamin D Deficiency Degenerative Disc Disease Scoliosis Lumbar Radiculopathy Spinal Stenosis of Lumbar Region Without Neurogenic Claudication Essential Tremor Urge Incontinence History of Thyroid Disease Stage 3a Chronic Kidney Disease (Hcc) Moderate Persistent Asthma, Uncomplicated Fracture of Distal End of Right Radius Chronic Rhinitis Abnormal Colonoscopy Type 2 Diabetes Mellitus With Stage 3a Chronic Kidney Disease, Without Long-Term Current Use of Insulin (Hcc) Hypertensive Kidney Disease With Stage 3a Chronic Kidney Disease (Hcc) Adductor Tendonitis Current Outpatient Medications Medication Sig Dispense Refill guaiFENesin 1,200 mg Ta12 Take 1 tablet by mouth every 12 hours. 30 tablet 1 benzonatate (TESSALON PERLE) 100 mg capsule Take 1-2 capsules tid prn 30 capsule 0 lactulose (DUPHALAC, CONSTULOSE) 10 g/15 mL soln Take 15 mL by mouth once daily. 240 mL 2 famotidine (PEPCID) 20 mg tablet Take 1 tablet by mouth twice daily. 60 tablet 5 PARoxetine (PAXIL) 40 mg tablet Take 1 tablet by mouth once daily. 30 tablet 5 fluticasone (FLONASE) 50 mcg/actuation nasal spray Use 2 Sprays in each nostril once daily. 1 Each 5 albuterol HFA (PROVENTIL HFA, VENTOLIN HFA) 90 mcg/actuation inhaler Inhale 2-4 Puffs as instructed every 2 hours as needed for wheezing/shortness of breath. 18 g 1 methocarbamol (ROBAXIN) 500 mg tablet Take 1 tablet by mouth twice daily as needed. 60 tablet 2 Cholecalciferol, Vitamin D3, 50 mcg (2,000 unit) cap Take 1 capsule by mouth once daily. 90 capsule 3 metFORMIN (GLUCOPHAGE) 850 mg tablet Take 1 tablet by mouth twice daily with meals. 60 tablet 11 pravastatin (PRAVACHOL) 20 mg tablet Take 1 tablet by mouth daily at bedtime. 90 tablet 3 Ibandronate 150 mg tablet Take 1 tablet by mouth once every month. In AM with cup of water on empty stomach. Nothing else by mouth and stay upright for 60 min. 3 tablet 4 acetaminophen 650 mg CR tablet Take 650 mg by mouth every 8 hours as needed. blood sugar diagnostic (BLOOD GLUCOSE TEST) test strip Test blood sugar(s) 2 times daily. Dx: Type 2 DM - Uncontrolled E11.65 Insulin: No 200 Strip 3 COMPOUNDED PRESCRIPTION Powerstep Original Full Length` 1 Each 0 No current facility-administered medications for this visit. SPIROMETRY Never done LUNG CANCE (more content not included)...[facility]04-21-2023 Instructions* Patient Instructions* M Wilbert Silva PA-C - 07/14/2022 3:12 PM EDT Images from the original note were not included. 07/14/2022 To Whom It May Concern, Yamilex Maldonado has been evaluated at the [facility] for concussion. A concussion is typicallya short-lived functional brain injury and will require both cognitive (mental) as well as physical rest in order to recover as quickly as possible. Please note that each concussion is different and symptoms and length of time to recovery are unique to each individual. The ideal treatment plan for concussion starts immediately and consists of identifying and limitingexposure to triggers that worsen their symptoms. These triggers can include activities such as working on or with technology, reading, writing or note taking, concentration and recall, environmental noise and light, occupied lunchrooms and meeting rooms, or even just walking from place to place. Patients will typically notice their symptoms worsening throughout the day as their brains become morefatigued. Pushing through their symptoms may prolong their recovery process. To best treat this patient, we ask that you implement the following temporary daily adjustments to the patient s work/school load to aid in the patient s recovery. Revisions may be made upon physician re-evaluation or follow up, and are dictated by their rate of recovery. Missed Time The concussed brain will fatigue more easily and is typically the freshest earlier in the morning after a good night s rest. We recommend that the concussed patient not attend work/school if they awake with symptoms, as this has been shown to delay recovery. As the day and the cognitive demands increase, the concussed individual will become more fatigued and have more difficulty completing tasks. Environmental and social stressors can contribute to theirsymptoms as well. Some patients may need to stay home at first to see how effective they work with and without symptoms. They may find that working at home in small increments with frequent rest breaks may make it more manageable than being at work/school. Once the patient can return to work/schoolit is recommended that the patient be permitted short breaks during activities/tasks in order to rest the brain and recover if symptoms come on during these activities. If the symptoms resolve with ashort break, the patient may return to the activity, if not they should consider going home to restfor longer when possible. Other instances a patient may note that the biggest symptom stressor is the environment from light and noise. Allowing the patient to bring sunglasses, brimmed hats and ear plugs to work/school as well as avoiding crowded environments can assist in decreasing these daily stressors. Workload Reduction Memory, attention span and processing speed are impaired during the recovery process. The patient may need more time, flexible due dates or decreased workload in order to complete assignments/tasks. More time can help as the patient may need to take frequent breaks in order to get through the day and their tasks. Notes and materials for daily meetings/classes should be forwarded to the patient inadvance of the next event to allow them to print these materials for review to decrease cognitive overstimulation during the event/meeting/class. Based on the patient s daily status of recovery it is the recommendation of the [facility] that testing be postponed until he/she is able to complete a full day of work/school or is provided with unlimited amounts of time to complete the test with frequent breaks incorporated and no more than one scheduled test every other day. Virtual/Electronic Events When possible, record online presentations and allow the patient to listen over viewing as necessary to minimize stress from screens. Allow the patient to complete virtual assignments/tasks at a later time in order to facilitate appropriate recovery. Notes for virtual events and event materials should be forwarded to the patient in advance of the next event to allow them to print these materials for review. Some concussed patients may find that listening is easier than reading or vice- versa. Multitasking,such as combining listening, reading, taking notes, and weeding out distractions in an environment can be very difficult, if not impossible, during the recovery phase. When possible consider virtual oral practical versus completing typed, written tests assignments. Sports/Physical Activity Gymnasium environments are often loud, very bright and full of other individuals moving about. Thisis not an ideal environment for a recovering patient and we recommend that the patient not participate in gym class or competitive sport activity until they have completed a return to activity progression under the supervision of a medical professional. [place] has laws requiring youth athletes to complete a progressive return to sports activity progression prior to returning to competition. Please refer to your [facility] department of health rules and laws prior to returning anyone under the age of18 to sports. Patients with concussion can have limited physical activity as their symptoms tolerate. These include low level cardiovascular activities like riding a stationary bike or directed walking on a flat level surface. Activities should be completed in a protected area away from moving objects. If the patient develops symptoms during the activity they should decrease their effort and intensity. If thisimproves symptoms they may continue at that level but if not improving they should discontinue and rest, reattempting the next day. We appreciate your assistance in the medical treatment plan to allow the patient to recover expeditiously and returning them back to their daily activities as quickly and safely as possible. Please do not hesitate to contact our office should you have any questions regarding the recovery plan. You may also visit [email or web address] for more information. Sincerely, Ashli Silva PA-C Frequently Asked Questions about Concussion What is a concussion? A concussion, or mild traumatic brain injury, is caused by a bump, jolt, or blow to the head that causes the brain to shift or twist rapidly inside the skull. A jolt to the body can also cause concussion if the impact causes the head to jerk forcefully backwards, forwards, rotate, or move to the side as in whiplash. A concussion is called mild because it is not usually life-threatening, and the symptoms are usually short-lived. However, the effects from a concussion can be serious and can last for days, weeks,or even longer. What are the common causes of concussion? The most common causes of concussions are falls, motor vehicle accidents, bicycling, and sport injuries. Any sport in which there is contact among the players, or which involves moving objects like apuck or a ball, can place the athlete at a higher risk for a concussion. Suffering a concussion increases the risk of suffering another during the first year following the injury. People with a history of previous concussion(s) are also at increased risk for prolonged symptoms after concussion. How is a concussion diagnosed? A medical professional should provide a thorough examination. This includes a history of the injury, a review of concussion symptoms, a comprehensive physical and neurological exam, balance testing and cognitive function testing. Most concussions do not require brain imaging with a CT or MRI. All [facility] have laws to protect youth/student athletes from returning to the sport before it is safe. A note from a licensed medical professional is required to certify the athlete s is recovered prior to athletic return. What are the common symptoms of concussion? Concussion symptoms usually appear immediately or just a few minutes after the head injury however,in some instances, symptoms may take several hours or even days to appear. The most common symptom of a concussion is a headache. Other common symptoms include dizziness, nausea, sensitivity to light and noise, sleep difficulties, fatigue, trouble with concentration, changes in behavior, irritability, sadness, nervousness and anxiety. For additional information or to make an appointment, go to [email or web address] or call [phone] ([phone]). What does concussion treatment/management involve? Most patients symptoms can be managed by observation and encouraging rest for the first few days. An appointment with a health care provider will individualize a gradual return to work/school and physical activity after initial rest. Medications for pain relief, unless prescribed, are not recommende d as they may hide symptoms are worsening each day. If symptoms are only worsening, seek medical evaluation immediately. Treatment of concussion is based on a plan called relative rest . The purpose is for the brain to be active, but not overactive and it should not become underactive either. There is a need to find balance in activities because the overactive brain can develop more symptoms and the underactive braincan become more sluggish. Both scenarios can make concussion recovery take longer. Four Principles of Relative Rest are as follows: Recognize when your symptoms worsen with activity. Temporarily remove yourself from those activities - take a break. Rest until the symptoms improve or go away - close your eyes and put head down. Return to those activities once you feel better. Can I exercise with a concussion? Yes, light cardiovascular exercise 2 days after concussion injury has been shown to improve a patient s recovery time and symptoms however, it is recommended that a patient refrain from the same level of physical activity as prior to the injury. Gym classes should not be attended until cleared by your medical team. Walking or light riding on a stationary bike for exercise is okay in order to keep the body moving increasing blood flow to the brain but you ll want to avoid anything that significantly increases heart rate. Exercise should not provoke symptoms. If symptoms worsen with light cardiovascular exercise, slow down the tempo of the exercise and see if symptoms improve. If it does, continue at that intensity. If symptoms continue despite slowing down, discontinue activity for the day. Patients who are student athletes should focus on becoming a student first, adding athletic activity as their recovery allows under the guidance of a licensed medical professional whenever possible. For additional information or to make an appointment, go to [email or web address] or call [phone] ([phone]). I can t seem to focus or concentrate now. Should I be going to school? It's helpful to identify and limit things that cause symptoms to return or increase. Most of the time, you can control the environment at home, where the lights can be turned down, the noise level controlled, and studies paced by taking frequent breaks and resting as needed. Patients can go back to work/school as soon as they feel they are ready. For many, this means when patients can handle 25-45 minutes of reading/studying at home without increasing symptoms but requiring breaks. When going back to work/school, start with the easiest subjects/activities and increase as tolerated. That doesn t necessarily mean that a patient go to work/school for a set amount of time. The patient should start off with some easier tasks/classes each day and moving towards the harder ones whenthey feel able. If symptoms start during work/class, the patient should take a small break by closing their eyes orputting their head down until symptoms start to go away. If symptoms don t improve or start to get worse, they can go to the nurse s office/quiet room to lie down, or even go home to rest. Note taking can be challenging with a concussion due to light sensitivity from screens, painful eyeand neck movements or even multi-tasking. To control symptoms, pre-printed notes in advance of a meeting or lesson are helpful. Focus on one task at a time. Utilize the sheet to add content from the discussion as needed. Just like getting into shape, mental stamina will improve as the patient listens to and manages symptoms. A patient shouldn t be afraid to rest and recover when they get home, they may be very tired and fatigued. Just like a phone they need to recharge and can nap but should do so briefly to not affect sleep. The power of diet and hydration: Though you may not be hungry or thirsty, make sure to get a balanced diet and hydration. Low blood sugar and dehydration mimic concussion symptoms. Making sure these are not a factor aids in faster recovery. What should I do if I have trouble falling asleep or sleeping through the night? Avoid screen time at least 1 hour prior to going to bed. This include phones, TVs, computers and other electronic devices. Blue light wavelengths affects the body s natural ability to produce melatonin, a hormone that helps regulate sleep. An over the counter supplement of melatonin is also available and can be used to assist in falling and staying asleep. Begin with 1-3mg if needed. If sleep does not improve, see your medical provideras soon as possible. For additional information or to make an appointment, go to [email or web address] or call [phone] ([phone]). 1 How to Manage Concussion Symptoms The following information is to help guide you through the different symptoms that you may experience during your recovery. Symptom management is designed to give you tips to assist you in decreasingsymptoms, as well as speeding up your recovery. LIMIT TRIGGERS CAUSING SYMPTOMS: TIPS FOR MANAGEMENT Any activity that produces or increases your symptoms is considered a trigger. It is important for you to know what aggravates your individual symptoms. Limiting triggers will help decrease symptoms each day This can allow for faster recovery and a return to activities sooner RELATIVE REST: We want the brain to remain active, but only as tolerated. This will require you to limit physical and mental activities that worsen your symptoms. When symptoms develop or worsen, stop that activityimmediately, rest until your symptoms improve or resolve, and then resume the activity as tolerated. Try shorter activity periods (start at 5 minutes & increase as tolerated) Limit electronic device use (cellphones, computers, tablet pcs, etc.) as these can aggravate symptoms Adapt your schedule to accommodate your symptoms each day APPROPRIATE SLEEP: Our brains recover during sleep. Sleep makes you feel more rested and focused. Your sleep pattern may be disrupted after a concussion, causing daytime tiredness. If sleep is difficult, inform your medical team. Go to bed and get up at the same time each day Take a short nap (30-60 minutes) if tired during the day Naps should not affect night time sleep Eliminate bedroom distractions: i.e. TV, cellphones, computers, tablet pcs, etc. HEADACHE: May vary in location and intensity Typically will worsen with mental/physical stress as the day progresses Can worsen with the position of your head and neck, especially with reading, working on a computer,texting or studying If your headache becomes more intense or worsens, consult your medical team Take medication sparingly as directed. Do not mask symptoms and push through tasks. DIZZINESS: Common after concussion and is described as: Lightheadedness Room is spinning Pressure or feeling of a full head Fogginess or can t think clearly Woozy Off balance It is important that you communicate any of these symptoms of dizziness to your medicalteam, even if the symptoms are temporary or come and go For more information or to make an appointment, go to [email or web address] or call [phone] ([phone]). 1 NECK PAIN: TIPS FOR MANAGEMENT Discomfort along your hairline or on the top of your shoulders is common with concussion Numbness and pain into your arms and hands is not common and should be reported can worsen with the position of your head and neck, especially with reading, working on a computer,texting or studying Physical therapy may be needed for resolution. It is important to let your medical team know if youdevelop neck pain after your concussion Use ice or cold pack at the base of the skull as needed for neck pain for about 15-20 minutes Try to use correct back and neck posture for relief LIGHT AND NOISE SENSITIVITY: Both are common after an injury Different kinds of light and noise can affect each person differently Limit exposure to these triggers by controlling the environment around you whenever possible Gradually reintroduce these stimuli, increasing exposure over time Turning indoor lights down and closing blinds may be necessary Sunglasses and hats can be used outside or with bright lights Limit electronic devices (cellphones, computers, TV, etc.) as these are known to aggravate symptoms Keep volume low on TVs or music Use foam earplugs to control noise in outdoor/public environments Report these to your medical team For more information or to make an appointment, go to [email or web address] or call [phone] ([phone]). [facility] of Present illness Narrative* Ashli Silva PA-C - 07/14/2022 3:01 PM EDT 66 year old female with c/o fell yesterday trying to sit on porch swing, went down on porch, swing hit her in the back of the head. No LOC or feeling dazed. Very tender over knot, head all over. Feels a little dizzy on standing. Neck hurts but able to move, drove herself here today.. Didn't want to go the ER so she came here. Taking Arthritis Tylenol for pain. HISTORIES FAMILY HISTORY Adopted: Yes Problem Relation Age of Onset Diabetes Father Heart Father Hypertension Father Lipids Father Diabetes Maternal Grandmother None Sister Diabetes Daughter Cancer Sister thyroid. PAST MEDICAL HISTORY Diagnosis Date Adjustment disorder with depressed mood Arthritis Kidney stones Mass of right parotid gland 04/14/2019 FNA right parotid:Negative for malignant cells. Warthin's tumor. 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 and being monitored by PCP Type II or unspecified type diabetes mellitus without mention of complication, not stated as uncontrolled PAST SURGICAL HISTORY Procedure Laterality Date APPENDECTOMY APPENDECTOMY ARTHRP INTERPOS INTERCARPAL/METACARPAL JOINTS Right 01/23/2020 Right thumb CMC arthroplasty with LRTI, Palmaris longus CHOLECYSTECTOMY COLONOSCOPY DIAGNOSTIC 03/03/2022 dysplastic polyp, repeat in [address] MAXILLOFACIAL WO/ CONT Bilateral mild ethmoid thickening bilaterally ESWL kidney stones OOPHORECTOMY PARTIAL/TOTAL UNI/BI bilaterally with hysterectomy PAST SURGICAL HISTORY OF tubal preg PAST SURGICAL HISTORY OF remote left leg/ ankle with plates and screws PAST SURGICAL HISTORY OF Left 11/29/2011 Bunion Removed PAST SURGICAL HISTORY OF Right 04/2019 parotid mass excision SINUS SURGERY HX 02/11/2018 TONSILLECTOMY HX TOT ABD HYST W/WO RMVL TUBE OVARY W/COLPURETHRXY VAGINAL HYSTERECTOMY Social History Tobacco Use Smoking status: Every Day Packs/day: 1.00 Years: 44.00 Pack years: 44.00 Types: Cigarettes Smokeless tobacco: Never Vaping Use Vaping Use: Never used Substance Use Topics Alcohol use: No Drug use: No ACTIVE PROBLEM LIST Well Controlled 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) Hyperlipidemia With Target Ldl Less Than 70 Depression With Anxiety Fibromyalgia Osteoporosis Tobacco Abuse Atrophic Vaginitis Hallux Valgus, Acquired Dyspareunia Vitamin D Deficiency Degenerative Disc Disease Scoliosis Lumbar Radiculopathy Spinal Stenosis of Lumbar Region Without Neurogenic Claudication Essential Tremor Urge Incontinence History of Thyroid Disease Stage 3a Chronic Kidney Disease (Hcc) Moderate Persistent Asthma, Uncomplicated Fracture of Distal End of Right Radius Chronic Rhinitis Abnormal Colonoscopy Type 2 Diabetes Mellitus With Stage 3a Chronic Kidney Disease, Without Long-Term Current Use of Insulin (Hcc) Hypertensive Kidney Disease With Stage 3a Chronic Kidney Disease (Hcc) Adductor Tendonitis Current Outpatient Medications Medication Sig Dispense Refill guaiFENesin 1,200 mg Ta12 Take 1 tablet by mouth every 12 hours. 30 tablet 1 benzonatate (TESSALON PERLE) 100 mg capsule Take 1-2 capsules tid prn 30 capsule 0 lactulose (DUPHALAC, CONSTULOSE) 10 g/15 mL soln Take 15 mL by mouth once daily. 240 mL 2 famotidine (PEPCID) 20 mg tablet Take 1 tablet by mouth twice daily. 60 tablet 5 PARoxetine (PAXIL) 40 mg tablet Take 1 tablet by mouth once daily. 30 tablet 5 fluticasone (FLONASE) 50 mcg/actuation nasal spray Use 2 Sprays in each nostril once daily. 1 Each 5 albuterol HFA (PROVENTIL HFA, VENTOLIN HFA) 90 mcg/actuation inhaler Inhale 2-4 Puffs as instructedevery 2 hours as needed for wheezing/shortness of breath. 18 g 1 methocarbamol (ROBAXIN) 500 mg tablet Take 1 tablet by mouth twice daily as needed. 60 tablet 2 Cholecalciferol, Vitamin D3, 50 mcg (2,000 unit) cap Take 1 capsule by mouth once daily. 90 capsule3 metFORMIN (GLUCOPHAGE) 850 mg tablet Take 1 tablet by mouth twice daily with meals. 60 tablet 11 pravastatin (PRAVACHOL) 20 mg tablet Take 1 tablet by mouth daily at bedtime. 90 tablet 3 Ibandronate 150 mg tablet Take 1 tablet by mouth once every month. In AM with cup of water on emptystomach. Nothing else by mouth and stay upright for 60 min. 3 tablet 4 acetaminophen 650 mg CR tablet Take 650 mg by mouth every 8 hours as needed. blood sugar diagnostic (BLOOD GLUCOSE TEST) test strip Test blood sugar(s) 2 times daily. Dx: Type 2 DM - Uncontrolled E11.65 Insulin: No 200 Strip 3 COMPOUNDED PRESCRIPTION Powerstep Original Full Length` 1 Each 0 No current facility-administered medications for this visit. SPIROMETRY Never done LUNG CANCER SCREENING Never done COVID-19 VACCINE(3 - Booster for Moderna series) due on 10/14/2020 DIABETIC FOOT EXAM due on 06/01/2022 HBA1C due on 06/14/2022 EXAM: BP 120/68 Pulse 74 Resp 16 Wt 72.6 kg (160 lb) SpO2 94% BMI 28.34 kg/m Pleasant older woman in no acute distress. Alert and oriented all spheres. Normal affect and cognition. Speech normal. No deficits to learning or comprehension. Skin warm, dry, pink to lips and nailbeds. Normal turgor. Respirations regular and unlabored. HEENT: NCAT. No scleral icterus or conjunctival injection. TM's clear. Nose and oropharynx free from injection or lesion. Oral membranes moist and pink. No cervical lymph nodes. Thyroid non-tender, no masses, or enlargement. Carotids pulses 2+/4+ without bruits. No JVD with HOB at 30 degrees. Posterior scalp without hematoma, small area or erythema tender. C/o pain with moving neck. Neck is supple, tender over posterior shoulder muscles into the occipital area. No tenderness in the anterior muscles. Chest is normal shape. Lungs are clear to all lopez with good air exchange through out. HRRR without murmur or gallop. No lifts, heaves, or rubs. Extrem: no clubbing or cyanosis. Edema: none. Extremities are warm and pink with prompt capillary refill. PERRLA. EOMI. Cranial nerves II through XII grossly intact. No focal motor deficits. Romberg is negative. Patient is able to balance on one leg and then the other. ASSESSMENT/PLAN: 1. Closed head injury with concussion, without loss of consciousness, sequela (HCC) - ICD9: 907.0, ICD10: S06.0X0S (primary diagnosis) No evidence of neurologic impairment, I suspect injury was too mild to cause fractures. At this point we are not able to provide scanning, advised patient if she feels worse or progressive headache that she should go to the emergency department. In the meantime we will check x-rays to make sure that there is no fracture. - XR CERV OTHER 4V AP/LAT/OBL - XR SKULL 2V AP/LAT 2. Neck sprain, initial encounter - ICD9: 847.0, ICD10: S13.9XXA Patient has range of motion with her neck, mild tenderness in the lateral muscles. Encouraged her to use ice, moist heat, gentle stretches, Tylenol arthritis for pain. - XR CERV OTHER 4V AP/LAT/OBL - XR SKULL 2V AP/LAT See discharge instructions, reviewed with patient regarding observation for concussion and symptomsto report Follow-up as needed. Ashli Silva PA-C documented [facility] NoteHNO ID: [id number] Author: Ursula Gardner APRN.POLICY CHANGE CLERK Service: ? Author Type: Nurse Practitioner Type: Progress Notes Filed: 07/03/2022 3:23 PM Note Text: Chief Complaint Patient presents with: Telemedicine I have communicated my name and active licensure. The patient's identity and physical location were verified at the time of this visit. Either the patient or their legal insurance follow up representative has been informed of the risks and benefits of -- and alternatives to -- treatment through a remote evaluation and consents to proceed with the evaluation remotely. Video was used for evaluation of this patient. Patient is aware of limitations of performing the visit without a face to face visit in the office setting and agrees. Patient agrees to the visit: Yes Patient Location: [place] [facility] Yamilex Maldonado is a 66 year old female who is contacted today for a virtual visit This is an established patient of Ashli Silva PA-C Reports: Pt presents today with complaint of covid. Symptoms started 06/30/22. + head congestion. A lot of pressure in the head. + headaches. Food doesn't taste as good. + pain in the upper/lower back. + diarrhea. + coughing. That is slowing down. + fevers/chills. Can't get warm. She is not taking anything for congestion. Is taking tylenol arthritis. She is on azithromycin. She did not take any of the cephalosporin. She is drinking lots of water. She is eating okay. She went to urgent care on 07/01/2022. She did have a chest x-ray due to abnormal lung exam. She was ordered azithromycin and cefuroxime due to concerns for pneumonia. X-ray showed no santos pulmonary consolidation, pleural effusion, pneumothorax, or pulmonary vascular redistribution. Past medical history, appointments, medications, allergies reviewed 07/03/2022 Previous Medical History PAST MEDICAL HISTORY Diagnosis Date Adjustment disorder with depressed mood Arthritis Kidney stones Mass of right parotid gland 04/14/2019 FNA right parotid:Negative for malignant cells. Warthin's tumor. 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 and being monitored by PCP Type II or unspecified type diabetes mellitus without mention of complication, not stated as uncontrolled Previous Surgical History PAST SURGICAL HISTORY Procedure Laterality Date APPENDECTOMY APPENDECTOMY ARTHRP INTERPOS INTERCARPAL/METACARPAL JOINTS Right 01/23/2020 Right thumb CMC arthroplasty with LRTI, Palmaris longus CHOLECYSTECTOMY COLONOSCOPY DIAGNOSTIC 03/03/2022 dysplastic polyp, repeat in [address] MAXILLOFACIAL WO/ CONT Bilateral mild ethmoid thickening bilaterally ESWL kidney stones OOPHORECTOMY PARTIAL/TOTAL UNI/BI bilaterally with hysterectomy PAST SURGICAL HISTORY OF tubal preg PAST SURGICAL HISTORY OF remote left leg/ ankle with plates and screws PAST SURGICAL HISTORY OF Left 11/29/2011 Bunion Removed PAST SURGICAL HISTORY OF Right 04/2019 parotid mass excision SINUS SURGERY HX 02/11/2018 TONSILLECTOMY HX TOT ABD HYST W/WO RMVL TUBE OVARY W/COLPURETHRXY VAGINAL HYSTERECTOMY Family History FAMILY HISTORY Adopted: Yes Problem Relation Age of Onset Diabetes Father Heart Father Hypertension Father Lipids Father Diabetes Maternal Grandmother None Sister Diabetes Daughter Cancer Sister thyroid. Patient Allergies ALLERGIES Allergen Reactions Ampicillin GI Upset Intolerance, can take cephalosporins Avelox [Moxifloxaci* Mental Status Change Bactrim [Sulfametho* Vomiting Doxycycline GI Upset Steroids [Corticost* Other: See Comments Anxiety, jittery and head feels funny Current Medications Current Outpatient Medications on File Prior to Visit Medication Sig cefUROXime (CEFTIN) 500 mg tablet Take 1 tablet by mouth twice daily for 7 days. azithromycin (ZITHROMAX) 250 mg tablet Take 2 tablets by mouth once daily for 1 day, THEN 1 tablet once daily for 4 days. guaiFENesin 1,200 mg Ta12 Take 1 tablet by mouth every 12 hours. lactulose (DUPHALAC, CONSTULOSE) 10 g/15 mL soln Take 15 mL by mouth once daily. famotidine (PEPCID) 20 mg tablet Take 1 tablet by mouth twice daily. PARoxetine (PAXIL) 40 mg tablet Take 1 tablet by mouth once daily. fluticasone (FLONASE) 50 mcg/actuation nasal spray Use 2 Sprays in each nostril once daily. albuterol HFA (PROVENTIL HFA, VENTOLIN HFA) 90 mcg/actuation inhaler Inhale 2-4 Puffs as instructed every 2 hours as needed for wheezing/shortness of breath. methocarbamol (ROBAXIN) 500 mg tablet Take 1 tablet by mouth twice daily as needed. Cholecalciferol, Vitamin D3, 50 mcg (2,000 unit) cap Take 1 capsule by mouth once daily. metFORMIN (GLUCOPHAGE) 850 mg tablet Take 1 tablet by mouth twice daily with meals. pravastatin (PRAVACHOL) 20 mg tablet Take 1 tablet by mouth daily at bedtime. Ibandronate 150 mg t (more content not included)...[facility] 07-03-2022 History of Present illness Narrative* Ursula Gardner APRN.[facility] - 07/03/2022 2:09 PM EDT Chief Complaint Patient presents with: Telemedicine I have communicated my name and active licensure. The patient's identity and physical location wereverified at the time of this visit. Either the patient or their legal insurance follow up representative has been informed of the risks and benefits of -- and alternatives to -- treatment through a remote evaluation andconsents to proceed with the evaluation remotely. Video was used for evaluation of this patient. Patient is aware of limitations of performing the visit without a face to face visit in the office setting and agrees. Patient agrees to the visit: Yes Patient Location: [facility] [place] Yamilex Maldonado is a 66 year old female who is contacted today for a virtual visit This is an established patient of Ashli Silva PA-C Reports: Pt presents today with complaint of covid. Symptoms started 06/30/22. + head congestion. A lot of pressure in the head. + headaches. Food doesn't taste as good. + pain in the upper/lower back. + diarrhea. + coughing. That is slowing down. + fevers/chills. Can't get warm. She is not taking anything for congestion. Is taking tylenol arthritis. She is on azithromycin. She did not take any of the cephalosporin. She is drinking lots of water. She is eating okay. She went to urgent care on 07/01/2022. She did have a chest x-ray due to abnormal lung exam. She was ordered azithromycin and cefuroxime due to concerns for pneumonia. X-ray showed no santos pulmonary consolidation, pleural effusion, pneumothorax, or pulmonary vascular redistribution. Past medical history, appointments, medications, allergies reviewed 07/03/2022 Previous Medical History PAST MEDICAL HISTORY Diagnosis Date Adjustment disorder with depressed mood Arthritis Kidney stones Mass of right parotid gland 04/14/2019 FNA right parotid:Negative for malignant cells. Warthin's tumor. 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 and being monitored by PCP Type II or unspecified type diabetes mellitus without mention of complication, not stated as uncontrolled Previous Surgical History PAST SURGICAL HISTORY Procedure Laterality Date APPENDECTOMY APPENDECTOMY ARTHRP INTERPOS INTERCARPAL/METACARPAL JOINTS Right 01/23/2020 Right thumb CMC arthroplasty with LRTI, Palmaris longus CHOLECYSTECTOMY COLONOSCOPY DIAGNOSTIC 03/03/2022 dysplastic polyp, repeat in [address] MAXILLOFACIAL WO/ CONT Bilateral mild ethmoid thickening bilaterally ESWL kidney stones OOPHORECTOMY PARTIAL/TOTAL UNI/BI bilaterally with hysterectomy PAST SURGICAL HISTORY OF tubal preg PAST SURGICAL HISTORY OF remote left leg/ ankle with plates and screws PAST SURGICAL HISTORY OF Left 11/29/2011 Bunion Removed PAST SURGICAL HISTORY OF Right 04/2019 parotid mass excision SINUS SURGERY HX 02/11/2018 TONSILLECTOMY HX TOT ABD HYST W/WO RMVL TUBE OVARY W/COLPURETHRXY VAGINAL HYSTERECTOMY Family History FAMILY HISTORY Adopted: Yes Problem Relation Age of Onset Diabetes Father Heart Father Hypertension Father Lipids Father Diabetes Maternal Grandmother None Sister Diabetes Daughter Cancer Sister thyroid. Patient Allergies ALLERGIES Allergen Reactions Ampicillin GI Upset Intolerance, can take cephalosporins Avelox [Moxifloxaci* Mental Status Change Bactrim [Sulfametho* Vomiting Doxycycline GI Upset Steroids [Corticost* Other: See Comments Anxiety, jittery and head feels funny Current Medications Current Outpatient Medications on File Prior to Visit Medication Sig cefUROXime (CEFTIN) 500 mg tablet Take 1 tablet by mouth twice daily for 7 days. azithromycin (ZITHROMAX) 250 mg tablet Take 2 tablets by mouth once daily for 1 day, THEN 1 tablet once daily for 4 days. guaiFENesin 1,200 mg Ta12 Take 1 tablet by mouth every 12 hours. lactulose (DUPHALAC, CONSTULOSE) 10 g/15 mL soln Take 15 mL by mouth once daily. famotidine (PEPCID) 20 mg tablet Take 1 tablet by mouth twice daily. PARoxetine (PAXIL) 40 mg tablet Take 1 tablet by mouth once daily. fluticasone (FLONASE) 50 mcg/actuation nasal spray Use 2 Sprays in each nostril once daily. albuterol HFA (PROVENTIL HFA, VENTOLIN HFA) 90 mcg/actuation inhaler Inhale 2-4 Puffs as instructedevery 2 hours as needed for wheezing/shortness of breath. methocarbamol (ROBAXIN) 500 mg tablet Take 1 tablet by mouth twice daily as needed. Cholecalciferol, Vitamin D3, 50 mcg (2,000 unit) cap Take 1 capsule by mouth once daily. metFORMIN (GLUCOPHAGE) 850 mg tablet Take 1 tablet by mouth twice daily with meals. pravastatin (PRAVACHOL) 20 mg tablet Take 1 tablet by mouth daily at bedtime. Ibandronate 150 mg tablet Take 1 tablet by mouth once every month. In AM with cup of water on emptystomach. Nothing else by mouth and stay upright for 60 min. acetaminophen 650 mg CR tablet Take 650 mg by mouth every 8 hours as needed. blood sugar diagnostic (BLOOD GLUCOSE TEST) test strip Test blood sugar(s) 2 times daily. Dx: Type 2 DM - Uncontrolled E11.65 Insulin: No COMPOUNDED PRESCRIPTION Powerstep Original Full Length` No current facility-administered medications on file prior to visit. Social History Social History Tobacco Use Smoking status: Every Day Packs/day: 1.00 Years: 44.00 Pack years: 44.00 Types: Cigarettes Smokeless tobacco: Never Vaping Use Vaping Use: Never used Substance Use Topics Alcohol use: No Drug use: No EXAM: There were no vitals taken for this visit. Limited exam as visit was completed over the virtual platform. Virtual visit completed using video, limited exam completed. Patient sounds or appears ill: Yes, non-toxic. General Appearance: Well appearing, alert, in no acute distress, well-hydrated, well nourished. Skin: Skin color normal Head: Normocephalic. No facial swelling or redness. EENT: Eyes nonreddened. No discharge. External ears nonreddened and no swelling. Neck: No mass or lesions. No swelling. FROM Patient is unable to speak in complete sentences: No Patient has labored breathing: No. Patient is audibly coughing: Yes Psych: Attitude - cooperative, easily engaged in conversation Affect - Euthymic, normal mood Mental status: Alert. Speech is clear and fluent with good repetition, comprehension Appearance - Normal hygiene and grooming appropriate Coordination: No abnormal or extraneous movements. Gait/Stance: Posture is normal. Health Maintenance List SPIROMETRY Never done LUNG CANCER SCREENING Never done COVID-19 VACCINE(3 - Booster for Moderna series) due on 10/14/2020 DIABETIC FOOT EXAM due on 06/01/2022 HBA1C due on 06/14/2022 DTAP,TDAP,TD(1 - Tdap) due on 06/16/2023 LDL CHOLESTEROL due on 09/05/2022 HEMOGLOBIN/HEMATOCRIT due on 09/05/2022 URINE ALBUMIN:CREATININE RATIO due on 09/20/2022 COLORECTAL CANCER SCREENING due on 03/03/2023 SERUM CREATININE due on 04/05/2023 DILATED RETINAL EXAM due on 04/28/2023 MAMMOGRAM due on 05/10/2023 ANNUAL PCP TEAM CHRONIC DISEASE VISIT due on 06/16/2023 BONE DENSITY Completed INFLUENZA Completed ADVANCE DIRECTIVE DISCUSSION Completed HEPATITIS C SCREENING Completed SHINGRIX VACCINE Completed PNEUMOCOCCAL: 65+ Completed Data reviewed Last 5 Encounter BP Readings: Date: BP: 07/01/2022 126/82 06/15/2022 126/70 05/25/2022 118/66 05/12/2022 108/66 04/03/2022 110/60 BMI Readings from Last 5 Encounters: 07/01/22 : 28.20 kg/m 06/15/22 : 28.34 kg/m 05/25/22 : 27.81 kg/m 05/12/22 : 28.17 kg/m 04/03/22 : 27.63 kg/m Last 5 Encounter Wt Readings: Date: Wt: 07/01/2022 72.2 kg (159 lb 3.2 oz) 06/15/2022 72.6 kg (160 lb) 05/25/2022 71.2 kg (157 lb) 05/12/2022 72.1 kg (159 lb) 04/03/2022 70.8 kg (156 lb) Medication and allergy list reviewed, reconciled and updated 07/03/2022 ASSESSMENT/PLAN: 1. COVID-19 - ICD9: 079.89, ICD10: U07.1 (primary diagnosis) Discussed anti-viral medication, but patient declines d/t being investigational. Encouraged to start mucinex. She has two days left of her z-pack. She never started the cephalosporin prescribed in urgent care. Vesna zaldivar for cough. Discussed that if her symptoms are not improving, notify provider. Aware that if she develops severe symptoms, she should present to the ER. 2. Acute cough - ICD9: 786.2, ICD10: R05.1 - BENZONATATE 100 MG CAPSULE Discussed treatment plan and patient voices understanding. Patient's questions answered appropriately. Medications and potential side effects were discussed and patient voices understanding. Return to the office as scheduled or as needed for worsening/no improvement. Ursula Gardner APRN.POLICY CHANGE CLERK This note was partially generated using [employer] voice recognition system. Note was reviewed for accuracy. There may be minor misspellings or grammar miscues with [employer] voice recognition. documented in [facility] Miscellaneous Notes* Telephone Encounter - Caitlyn Mathews Ma - 07/03/2022 9:26 AM EDT Pt is on day 4 Has a lot of body aches Would like to discuss treatment Appt made * Telephone Encounter - Ashli Silva PA-C - 07/02/2022 8:06 PM EDT Does she want antiviral therapy? If so will need to schedule appointment to complete forms for prescription. Thanks, Jj Silva PA-C * Telephone Encounter - Ashli Silva PA-C - 07/02/2022 8:05 PM EDT ----- Message from Yodit Khan PA-C sent at 07/02/2022 8:13 AM EDT ----- Patient notified of positive result via mychart documented in [facility] NoteHNO ID: [id number] Author: ROSA Pang) Service: ? Author Type: Supervisor [employer] Type: Progress Notes Filed: 07/01/2022 9:17 AM Note Text: Radiology Service Progress Note PATIENT NAME: Yamilex Maldonado DATE OF SERVICE: July 01, 2022 TIME: 9:09 AM PATIENT IDENTITY VERIFICATION COMPLETED USING TWO (2) IDENTIFIERS: Name and Date of confirmed by patient verbally. FALL SCREENING: Has the patient had 2 falls in the last year or 1 fall with injury or currently using an Ambulatory Assistive Device (Walker, Cane, Wheelchair, Crutches, etc.)? No PATIENT GENDER DATA: Female. status: : No status: NO. PATIENT RELEVANT IMPLANT DATA REVIEWED: Yes RADIOLOGY DEPARTMENT: General X-ray: Exam(s) Completed: Chest X-Ray PERIPHERAL IV DATA: Not applicable SIGNED BY: RT Poly(R) July 01, 2022 9:09 [facility]04-08-2023 NoteHNO ID: [id number] Author: Ange Grover APRN.POLICY CHANGE CLERK Service: ? Author Type: Nurse Practitioner Type: Progress Notes Filed: 07/01/2022 10:14 AM Note Text: Subjective HPI Yamilex Maldonado is a 66 year old female who presents with cough, fatigue, chills, shortness of breath, occasional wheezing, headaches and body aches. Her symptoms started a week ago. A few days ago she was exposed to COVID in a friend. She has been taking tylenol and using her inhaler. States she feels miserable and has pain in her back and frequent cough. Review of Systems Constitutional: Positive for chills and malaise/fatigue. Negative for fever. HENT: Positive for congestion. Negative for ear pain and sore throat. Respiratory: Positive for cough, shortness of breath and wheezing. Negative for sputum production. Cardiovascular: Negative for chest pain. Gastrointestinal: Negative for abdominal pain, nausea and vomiting. Musculoskeletal: Positive for back pain and myalgias. BP 126/82 Pulse 84 Temp 37.3 ?C (99.1 ?F) Resp 20 Wt 72.2 kg (159 lb 3.2 oz) SpO2 97% BMI 28.20 kg/m? PAST MEDICAL HISTORY Diagnosis Date Adjustment disorder with depressed mood Arthritis Kidney stones Mass of right parotid gland 04/14/2019 FNA right parotid:Negative for malignant cells. Warthin's tumor. 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 and being monitored by PCP Type II or unspecified type diabetes mellitus without mention of complication, not stated as uncontrolled PAST SURGICAL HISTORY Procedure Laterality Date APPENDECTOMY APPENDECTOMY ARTHRP INTERPOS INTERCARPAL/METACARPAL JOINTS Right 01/23/2020 Right thumb CMC arthroplasty with LRTI, Palmaris longus CHOLECYSTECTOMY COLONOSCOPY DIAGNOSTIC 03/03/2022 dysplastic polyp, repeat in [address] MAXILLOFACIAL WO/ CONT Bilateral mild ethmoid thickening bilaterally ESWL kidney stones OOPHORECTOMY PARTIAL/TOTAL UNI/BI bilaterally with hysterectomy PAST SURGICAL HISTORY OF tubal preg PAST SURGICAL HISTORY OF remote left leg/ ankle with plates and screws PAST SURGICAL HISTORY OF Left 11/29/2011 Bunion Removed PAST SURGICAL HISTORY OF Right 04/2019 parotid mass excision SINUS SURGERY HX 02/11/2018 TONSILLECTOMY HX TOT ABD HYST W/WO RMVL TUBE OVARY W/COLPURETHRXY VAGINAL HYSTERECTOMY ALLERGIES Ampicillin, Avelox [Moxifloxacin Hcl], Bactrim [Sulfamethoxazole-Trimethoprim], Doxycycline, and Steroids [Corticosteroids (Glucocorticoids)] MEDICATIONS predniSONE (DELTASONE) 20 mg tablet Take 1 tablet by mouth once daily. (Patient not taking: Reported on 07/01/2022) cephALEXin (KEFLEX) 500 mg capsule Take 1 capsule by mouth twice daily. Previously tolerated (Patient not taking: Reported on 07/01/2022) guaiFENesin 1,200 mg Ta12 Take 1 tablet by mouth every 12 hours. lactulose (DUPHALAC, CONSTULOSE) 10 g/15 mL soln Take 15 mL by mouth once daily. famotidine (PEPCID) 20 mg tablet Take 1 tablet by mouth twice daily. PARoxetine (PAXIL) 40 mg tablet Take 1 tablet by mouth once daily. fluticasone (FLONASE) 50 mcg/actuation nasal spray Use 2 Sprays in each nostril once daily. albuterol HFA (PROVENTIL HFA, VENTOLIN HFA) 90 mcg/actuation inhaler Inhale 2-4 Puffs as instructed every 2 hours as needed for wheezing/shortness of breath. methocarbamol (ROBAXIN) 500 mg tablet Take 1 tablet by mouth twice daily as needed. Cholecalciferol, Vitamin D3, 50 mcg (2,000 unit) cap Take 1 capsule by mouth once daily. metFORMIN (GLUCOPHAGE) 850 mg tablet Take 1 tablet by mouth twice daily with meals. pravastatin (PRAVACHOL) 20 mg tablet Take 1 tablet by mouth daily at bedtime. Ibandronate 150 mg tablet Take 1 tablet by mouth once every month. In AM with cup of water on empty stomach. Nothing else by mouth and stay upright for 60 min. acetaminophen 650 mg CR tablet Take 650 mg by mouth every 8 hours as needed. blood sugar diagnostic (BLOOD GLUCOSE TEST) test strip Test blood sugar(s) 2 times daily. Dx: Type 2 DM - Uncontrolled E11.65 Insulin: No COMPOUNDED PRESCRIPTION Powerstep Original Full Length` FAMILY HISTORY Adopted: Yes Problem Relation Age of Onset Diabetes Father Heart Father Hypertension Father Lipids Father Diabetes Maternal Grandmother None Sister Diabetes Daughter Cancer Sister thyroid. Social History Tobacco Use Smoking status: Every Day Packs/day: 1.00 Years: 44.00 Pack years: 44.00 Types: Cigarettes Smokeless tobacco: Never Vaping Use Vaping Use: Never used Substance Use Topics Alcohol use: No Drug use: No Objective Physical Exam Vitals and nursing note reviewed. HENT: Mouth/Throat: Pharynx: Uvula midline. Cardiovascular: Rate and Rhythm: Normal rate and regular rhythm. Heart sounds: Normal heart sounds. Pulmonary: Effort: Pulmonary effort is normal. No respiratory dist (more content not included)...[facility]04-08-2023 Instructions* Patient Instructions* Ange Grover APRN.CNP - 07/01/2022 10:01 AM EDT ASSESSMENT/PLAN: 1. Acute cough - ICD9: 786.2, ICD10: R05.1 (primary diagnosis) - XR CHEST 2V FRONTAL/LAT-radiology read pending. Will treat due to abnormal lung exam and symptomsconsistent with pneumonia. 2. Flu-like symptoms - ICD9: 780.99, ICD10: R68.89 - COVID WITH FLUA+B, ROUTINE 3. Exposure to COVID-19 virus - ICD9: V01.79, ICD10: Z20.822 - COVID WITH FLUA+B, ROUTINE 4. Lower respiratory infection - ICD9: 519.8, ICD10: J22 - CEFUROXIME AXETIL 500 MG TABLET - AZITHROMYCIN 250 MG TABLET - Follow-up with your PCP in 3-5 days if symptoms have not improved or sooner if symptoms worsen - Discussed red flags and need for immediate medical evaluation if any occur. - Discussed supportive care treatment with fluids, rest and analgesia. - Discussed expected course of illness Ange Grover APRN.CNP documented in [facility] History of Present illness Narrative* Ange Grover APRN.CNP - 07/01/2022 8:59 AM EDT Subjective HPI Yamilex Maldonado is a 66 year old female who presents with cough, fatigue, chills, shortness of breath, occasional wheezing, headaches and body aches. Her symptoms started a week ago. A few days ago she was exposed to COVID in a friend. She has been taking tylenol and using her inhaler. States she feels miserable and has pain in her back and frequent cough. Review of Systems Constitutional: Positive for chills and malaise/fatigue. Negative for fever. HENT: Positive for congestion. Negative for ear pain and sore throat. Respiratory: Positive for cough, shortness of breath and wheezing. Negative for sputum production. Cardiovascular: Negative for chest pain. Gastrointestinal: Negative for abdominal pain, nausea and vomiting. Musculoskeletal: Positive for back pain and myalgias. BP 126/82 Pulse 84 Temp 37.3 C (99.1 F) Resp 20 Wt 72.2 kg (159 lb 3.2 oz) SpO2 97% BMI28.20 kg/m PAST MEDICAL HISTORY Diagnosis Date Adjustment disorder with depressed mood Arthritis Kidney stones Mass of right parotid gland 04/14/2019 FNA right parotid:Negative for malignant cells. Warthin's tumor. 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 and being monitored by PCP Type II or unspecified type diabetes mellitus without mention of complication, not stated as uncontrolled PAST SURGICAL HISTORY Procedure Laterality Date APPENDECTOMY APPENDECTOMY ARTHRP INTERPOS INTERCARPAL/METACARPAL JOINTS Right 01/23/2020 Right thumb CMC arthroplasty with LRTI, Palmaris longus CHOLECYSTECTOMY COLONOSCOPY DIAGNOSTIC 03/03/2022 dysplastic polyp, repeat in [address] MAXILLOFACIAL WO/ CONT Bilateral mild ethmoid thickening bilaterally ESWL kidney stones OOPHORECTOMY PARTIAL/TOTAL UNI/BI bilaterally with hysterectomy PAST SURGICAL HISTORY OF tubal preg PAST SURGICAL HISTORY OF remote left leg/ ankle with plates and screws PAST SURGICAL HISTORY OF Left 11/29/2011 Bunion Removed PAST SURGICAL HISTORY OF Right 04/2019 parotid mass excision SINUS SURGERY HX 02/11/2018 TONSILLECTOMY HX TOT ABD HYST W/WO RMVL TUBE OVARY W/COLPURETHRXY VAGINAL HYSTERECTOMY ALLERGIES Ampicillin, Avelox [Moxifloxacin Hcl], Bactrim [Sulfamethoxazole- Trimethoprim], Doxycycline, and Steroids [Corticosteroids (Glucocorticoids)] MEDICATIONS predniSONE (DELTASONE) 20 mg tablet Take 1 tablet by mouth once daily. (Patient not taking: Reported on 07/01/2022) cephALEXin (KEFLEX) 500 mg capsule Take 1 capsule by mouth twice daily. Previously tolerated (Patient not taking: Reported on 07/01/2022) guaiFENesin 1,200 mg Ta12 Take 1 tablet by mouth every 12 hours. lactulose (DUPHALAC, CONSTULOSE) 10 g/15 mL soln Take 15 mL by mouth once daily. famotidine (PEPCID) 20 mg tablet Take 1 tablet by mouth twice daily. PARoxetine (PAXIL) 40 mg tablet Take 1 tablet by mouth once daily. fluticasone (FLONASE) 50 mcg/actuation nasal spray Use 2 Sprays in each nostril once daily. albuterol HFA (PROVENTIL HFA, VENTOLIN HFA) 90 mcg/actuation inhaler Inhale 2-4 Puffs as instructedevery 2 hours as needed for wheezing/shortness of breath. methocarbamol (ROBAXIN) 500 mg tablet Take 1 tablet by mouth twice daily as needed. Cholecalciferol, Vitamin D3, 50 mcg (2,000 unit) cap Take 1 capsule by mouth once daily. metFORMIN (GLUCOPHAGE) 850 mg tablet Take 1 tablet by mouth twice daily with meals. pravastatin (PRAVACHOL) 20 mg tablet Take 1 tablet by mouth daily at bedtime. Ibandronate 150 mg tablet Take 1 tablet by mouth once every month. In AM with cup of water on emptystomach. Nothing else by mouth and stay upright for 60 min. acetaminophen 650 mg CR tablet Take 650 mg by mouth every 8 hours as needed. blood sugar diagnostic (BLOOD GLUCOSE TEST) test strip Test blood sugar(s) 2 times daily. Dx: Type 2 DM - Uncontrolled E11.65 Insulin: No COMPOUNDED PRESCRIPTION Powerstep Original Full Length` FAMILY HISTORY Adopted: Yes Problem Relation Age of Onset Diabetes Father Heart Father Hypertension Father Lipids Father Diabetes Maternal Grandmother None Sister Diabetes Daughter Cancer Sister thyroid. Social History Tobacco Use Smoking status: Every Day Packs/day: 1.00 Years: 44.00 Pack years: 44.00 Types: Cigarettes Smokeless tobacco: Never Vaping Use Vaping Use: Never used Substance Use Topics Alcohol use: No Drug use: No Objective Physical Exam Vitals and nursing note reviewed. HENT: Mouth/Throat: Pharynx: Uvula midline. Cardiovascular: Rate and Rhythm: Normal rate and regular rhythm. Heart sounds: Normal heart sounds. Pulmonary: Effort: Pulmonary effort is normal. No respiratory distress. Breath sounds: Examination of the right-lower field reveals decreased breath sounds. Examination ofthe left-lower field reveals decreased breath sounds. Decreased breath sounds present. No wheezing or rales. Musculoskeletal: Cervical back: Neck supple. Lymphadenopathy: Cervical: No cervical adenopathy. Skin: General: Skin is warm and dry. Findings: No erythema or rash. Neurological: Mental Status: She is alert. ASSESSMENT/PLAN: 1. Acute cough - ICD9: 786.2, ICD10: R05.1 (primary diagnosis) - XR CHEST 2V FRONTAL/LAT-radiology read pending. Will treat due to abnormal lung exam and symptomsconsistent with pneumonia. 2. Flu-like symptoms - ICD9: 780.99, ICD10: R68.89 - COVID WITH FLUA+B, ROUTINE 3. Exposure to COVID-19 virus - ICD9: V01.79, ICD10: Z20.822 - COVID WITH FLUA+B, ROUTINE 4. Lower respiratory infection - ICD9: 519.8, ICD10: J22 - CEFUROXIME AXETIL 500 MG TABLET - AZITHROMYCIN 250 MG TABLET - Follow-up with your PCP in 3-5 days if symptoms have not improved or sooner if symptoms worsen - Discussed red flags and need for immediate medical evaluation if any occur. - Discussed supportive care treatment with fluids, rest and analgesia. - Discussed expected course of illness Ange Grover APRN.CNP [facility] Miscellaneous Notes* Telephone Encounter - Ashli Silva PA-C - 06/16/2022 6:04 PM EDT The following approved medication requests have been transmitted electronically. Requested Prescriptions Signed Prescriptions Disp Refills Kwimvcqzrmjqpkc-Bmwrkbj-IR (ROBITUSSIN DAC) 30-10-100 mg/5 mL solution 60 mL 0 Sig: Take 2.5 mL by mouth four times daily as needed for up to 7 days. Ashli Silva PA-C documented [facility]23 NoteHNO ID: [id number] Author: Ashli Silva PA-C Service: ? Author Type: Physician Sign Hanger Supervisor Type: Progress Notes Filed: 06/15/2022 9:34 AM Note Text: 66 y/o woman with complaint of persistent sx with complaints of sinus pain, no fever, persistent cough, 06/09/2022 Rx Cephalexin 500mg twice a day x 10 days. Was feeling better and cough now worse. Causing a lot of incontinence. Occasional wheeze. Mostly dry cough. Feeling low due to illness, issues with fingers, issues with muscle aches, ow energy. Home sugars running 128-171 Hemoglobin A1C (%) Date Value 09/12/2021 6.4 10/12/2020 6.2 08/14/2019 6.4 ) HISTORIES FAMILY HISTORY Adopted: Yes Problem Relation Age of Onset Diabetes Father Heart Father Hypertension Father Lipids Father Diabetes Maternal Grandmother None Sister Diabetes Daughter Cancer Sister thyroid. PAST MEDICAL HISTORY Diagnosis Date Adjustment disorder with depressed mood Arthritis Kidney stones Mass of right parotid gland 04/14/2019 FNA right parotid:Negative for malignant cells. Warthin's tumor. 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 and being monitored by PCP Type II or unspecified type diabetes mellitus without mention of complication, not stated as uncontrolled PAST SURGICAL HISTORY Procedure Laterality Date APPENDECTOMY APPENDECTOMY ARTHRP INTERPOS INTERCARPAL/METACARPAL JOINTS Right 01/23/2020 Right thumb CMC arthroplasty with LRTI, Palmaris longus CHOLECYSTECTOMY COLONOSCOPY DIAGNOSTIC 03/03/2022 dysplastic polyp, repeat in [address] MAXILLOFACIAL WO/ CONT Bilateral mild ethmoid thickening bilaterally ESWL kidney stones OOPHORECTOMY PARTIAL/TOTAL UNI/BI bilaterally with hysterectomy PAST SURGICAL HISTORY OF tubal preg PAST SURGICAL HISTORY OF remote left leg/ ankle with plates and screws PAST SURGICAL HISTORY OF Left 11/29/2011 Bunion Removed PAST SURGICAL HISTORY OF Right 04/2019 parotid mass excision SINUS SURGERY HX 02/11/2018 TONSILLECTOMY HX TOT ABD HYST W/WO RMVL TUBE OVARY W/COLPURETHRXY VAGINAL HYSTERECTOMY Social History Tobacco Use Smoking status: Every Day Packs/day: 1.00 Years: 44.00 Pack years: 44.00 Types: Cigarettes Smokeless tobacco: Never Vaping Use Vaping Use: Never used Substance Use Topics Alcohol use: No Drug use: No ACTIVE PROBLEM LIST Well Controlled Type 2 Diabetes Mellitus With Neurological Manifestations ([facility]) Hyperlipidemia With Target Ldl Less Than 70 Depression With Anxiety Fibromyalgia Osteoporosis Tobacco Abuse Atrophic Vaginitis Hallux Valgus, Acquired Dyspareunia Vitamin D Deficiency Degenerative Disc Disease Scoliosis Lumbar Radiculopathy Spinal Stenosis of Lumbar Region Without Neurogenic Claudication Essential Tremor Urge Incontinence History of Thyroid Disease Stage 3a Chronic Kidney Disease (Hcc) Moderate Persistent Asthma, Uncomplicated Fracture of Distal End of Right Radius Chronic Rhinitis Abnormal Colonoscopy Type 2 Diabetes Mellitus With Stage 3a Chronic Kidney Disease, Without Long-Term Current Use of Insulin (Hcc) Hypertensive Kidney Disease With Stage 3a Chronic Kidney Disease ([facility]) Adductor Tendonitis Current Outpatient Medications Medication Sig Dispense Refill cephALEXin (KEFLEX) 500 mg capsule Take 1 capsule by mouth twice daily. Previously tolerated 20 capsule 0 Promethazine-DM (PHENERGAN-DM) 6.25-15 mg/5 mL syrup Take 5 mL by mouth four times daily as needed. 120 mL 0 guaiFENesin 1,200 mg Ta12 Take 1 tablet by mouth every 12 hours. 30 tablet 1 lactulose (DUPHALAC, CONSTULOSE) 10 g/15 mL soln Take 15 mL by mouth once daily. 240 mL 2 famotidine (PEPCID) 20 mg tablet Take 1 tablet by mouth twice daily. 60 tablet 5 PARoxetine (PAXIL) 40 mg tablet Take 1 tablet by mouth once daily. 30 tablet 5 fluticasone (FLONASE) 50 mcg/actuation nasal spray Use 2 Sprays in each nostril once daily. 1 Each 5 albuterol HFA (PROVENTIL HFA, VENTOLIN HFA) 90 mcg/actuation inhaler Inhale 2-4 Puffs as instructed every 2 hours as needed for wheezing/shortness of breath. 18 g 1 methocarbamol (ROBAXIN) 500 mg tablet Take 1 tablet by mouth twice daily as needed. 60 tablet 2 Cholecalciferol, Vitamin D3, 50 mcg (2,000 unit) cap Take 1 capsule by mouth once daily. 90 capsule 3 metFORMIN (GLUCOPHAGE) 850 mg tablet Take 1 tablet by mouth twice daily with meals. 60 tablet 11 pravastatin (PRAVACHOL) 20 mg tablet Take 1 tablet by mouth daily at bedtime. 90 tablet 3 Ibandronate 150 mg tablet Take 1 tablet by mouth once every month. In AM with cup of water on empty stomach. Nothing else by mouth and stay upright for 60 min. 3 tablet 4 acetaminophen 650 mg CR tablet Take 650 mg by mouth every 8 hours as needed. blood sugar diagnostic (BLOOD GLUCOSE TEST) test strip Test blood sugar(s) (more content not included)...[facility] History of Present illness Narrative* M Wilbert Silva PA-C - 06/15/2022 9:20 AM EDT 66 y/o woman with complaint of persistent sx with complaints of sinus pain, no fever, persistent cough, 06/09/2022 Rx Cephalexin 500mg twice a day x 10 days. Was feeling better and cough now worse. Causing a lot of incontinence. Occasional wheeze. Mostly dry cough. Feeling low due to illness, issues with fingers, issues with muscle aches, ow energy. Home sugars running 128-171 Hemoglobin A1C (%) Date Value 09/12/2021 6.4 10/12/2020 6.2 08/14/2019 6.4 ) HISTORIES FAMILY HISTORY Adopted: Yes Problem Relation Age of Onset Diabetes Father Heart Father Hypertension Father Lipids Father Diabetes Maternal Grandmother None Sister Diabetes Daughter Cancer Sister thyroid. PAST MEDICAL HISTORY Diagnosis Date Adjustment disorder with depressed mood Arthritis Kidney stones Mass of right parotid gland 04/14/2019 FNA right parotid:Negative for malignant cells. Warthin's tumor. 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 and being monitored by PCP Type II or unspecified type diabetes mellitus without mention of complication, not stated as uncontrolled PAST SURGICAL HISTORY Procedure Laterality Date APPENDECTOMY APPENDECTOMY ARTHRP INTERPOS INTERCARPAL/METACARPAL JOINTS Right 01/23/2020 Right thumb CMC arthroplasty with LRTI, Palmaris longus CHOLECYSTECTOMY COLONOSCOPY DIAGNOSTIC 03/03/2022 dysplastic polyp, repeat in [address] MAXILLOFACIAL WO/ CONT Bilateral mild ethmoid thickening bilaterally ESWL kidney stones OOPHORECTOMY PARTIAL/TOTAL UNI/BI bilaterally with hysterectomy PAST SURGICAL HISTORY OF tubal preg PAST SURGICAL HISTORY OF remote left leg/ ankle with plates and screws PAST SURGICAL HISTORY OF Left 11/29/2011 Bunion Removed PAST SURGICAL HISTORY OF Right 04/2019 parotid mass excision SINUS SURGERY HX 02/11/2018 TONSILLECTOMY HX TOT ABD HYST W/WO RMVL TUBE OVARY W/COLPURETHRXY VAGINAL HYSTERECTOMY Social History Tobacco Use Smoking status: Every Day Packs/day: 1.00 Years: 44.00 Pack years: 44.00 Types: Cigarettes Smokeless tobacco: Never Vaping Use Vaping Use: Never used Substance Use Topics Alcohol use: No Drug use: No ACTIVE PROBLEM LIST Well Controlled 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) Hyperlipidemia With Target Ldl Less Than 70 Depression With Anxiety Fibromyalgia Osteoporosis Tobacco Abuse Atrophic Vaginitis Hallux Valgus, Acquired Dyspareunia Vitamin D Deficiency Degenerative Disc Disease Scoliosis Lumbar Radiculopathy Spinal Stenosis of Lumbar Region Without Neurogenic Claudication Essential Tremor Urge Incontinence History of Thyroid Disease Stage 3a Chronic Kidney Disease (Hcc) Moderate Persistent Asthma, Uncomplicated Fracture of Distal End of Right Radius Chronic Rhinitis Abnormal Colonoscopy Type 2 Diabetes Mellitus With Stage 3a Chronic Kidney Disease, Without Long-Term Current Use of Insulin (Hcc) Hypertensive Kidney Disease With Stage 3a Chronic Kidney Disease (Hcc) Adductor Tendonitis Current Outpatient Medications Medication Sig Dispense Refill cephALEXin (KEFLEX) 500 mg capsule Take 1 capsule by mouth twice daily. Previously tolerated 20 capsule 0 Promethazine-DM (PHENERGAN-DM) 6.25-15 mg/5 mL syrup Take 5 mL by mouth four times daily as needed.120 mL 0 guaiFENesin 1,200 mg Ta12 Take 1 tablet by mouth every 12 hours. 30 tablet 1 lactulose (DUPHALAC, CONSTULOSE) 10 g/15 mL soln Take 15 mL by mouth once daily. 240 mL 2 famotidine (PEPCID) 20 mg tablet Take 1 tablet by mouth twice daily. 60 tablet 5 PARoxetine (PAXIL) 40 mg tablet Take 1 tablet by mouth once daily. 30 tablet 5 fluticasone (FLONASE) 50 mcg/actuation nasal spray Use 2 Sprays in each nostril once daily. 1 Each 5 albuterol HFA (PROVENTIL HFA, VENTOLIN HFA) 90 mcg/actuation inhaler Inhale 2-4 Puffs as instructedevery 2 hours as needed for wheezing/shortness of breath. 18 g 1 methocarbamol (ROBAXIN) 500 mg tablet Take 1 tablet by mouth twice daily as needed. 60 tablet 2 Cholecalciferol, Vitamin D3, 50 mcg (2,000 unit) cap Take 1 capsule by mouth once daily. 90 capsule3 metFORMIN (GLUCOPHAGE) 850 mg tablet Take 1 tablet by mouth twice daily with meals. 60 tablet 11 pravastatin (PRAVACHOL) 20 mg tablet Take 1 tablet by mouth daily at bedtime. 90 tablet 3 Ibandronate 150 mg tablet Take 1 tablet by mouth once every month. In AM with cup of water on emptystomach. Nothing else by mouth and stay upright for 60 min. 3 tablet 4 acetaminophen 650 mg CR tablet Take 650 mg by mouth every 8 hours as needed. blood sugar diagnostic (BLOOD GLUCOSE TEST) test strip Test blood sugar(s) 2 times daily. Dx: Type 2 DM - Uncontrolled E11.65 Insulin: No 200 Strip 3 COMPOUNDED PRESCRIPTION Powerstep Original Full Length` 1 Each 0 No current facility-administered medications for this visit. SPIROMETRY Never done DTAP,TDAP,TD(1 - Tdap) Never done LUNG CANCER SCREENING Never done COVID-19 VACCINE(3 - Booster for Moderna series) due on 10/14/2020 HBA1C due on 06/14/2022 DIABETIC FOOT EXAM due on 06/01/2022 EXAM: BP 126/70 Pulse 78 Temp 36.9 C (98.5 F) Resp 20 Wt 72.6 kg (160 lb) SpO2 96% BMI 28.34 kg/m Pleasant older adult woman in no acute distress. Alert and oriented all spheres. Normal affect and cognition. Speech normal. No deficits to learning or comprehension. Skin warm, dry, pink to lips and nailbeds. Normal turgor. Respirations regular and unlabored. Harsh bronchial cough, crackly until expectorates white. HEENT: NCAT. No scleral icterus or conjunctival injection. TM's clear. Nose and oropharynx free from injection or lesion. Oral membranes moist and pink. No cervical lymph nodes. Thyroid non-tender, no masses, or enlargement. Carotids pulses 2+/4+ without bruits. No JVD with HOB at 30 degrees. Chest is normal shape. Lungs are clear to all lopez with good air exchange through out. HRRR without murmur or gallop. No lifts, heaves, or rubs. Extrem: no clubbing or cyanosis. Edema: none. Extremities are warm and pink with prompt capillary refill ASSESSMENT/PLAN: 1. Viral bronchitis - ICD9: 466.0, ICD10: J20.8 (primary diagnosis) Emphasized need to stop smoking - BROMPHENIRAMINE 4 MG-PHENYLEPH 10 MG-CHLOPHEDIANOL 25 MG/5 ML ORAL LIQ - PREDNISONE 20 MG TABLET 2. Type 2 diabetes mellitus with stage 3a chronic kidney disease, without long- term current use of insulin (HCC) - ICD9: 250.40, 585.3, ICD10: E11.22, N18.31 - Controlled - Continue current medications 3. Depression with anxiety - ICD9: 300.4, ICD10: F41.8 Stable use of medications. Feeling low with recent issues Ashli Silva PA-C Some of this note may have been copied and pasted for the purpose of history context and comparison. [facility]* Diagnosis Viral bronchitis- Primary Acute bronchitis Type 2 diabetes mellitus with stage 3a chronic kidney disease, without long-term current use of insulin ([facility] Depression with anxiety Dysthymic disorder documented in this [facility] Miscellaneous Notes* Telephone Encounter - Ashli Silva PA-C - 06/09/2022 5:06 PM EDT The following approved medication requests have been transmitted electronically. Requested Prescriptions Signed Prescriptions Disp Refills cephALEXin (KEFLEX) 500 mg capsule 20 capsule 0 Sig: Take 1 capsule by mouth twice daily. Previously tolerated Ashli Silva PA-C [facility]23 NoteHNO ID: [id number] Author: Ashli Silva PA-C Service: ? Author Type: Physician Sign Hanger Supervisor Type: Progress Notes Filed: 05/25/2022 11:21 AM Note Text: 66 year old female with c/o URI sx over last week No fever or chills. Headache across frontal. Stuffy nose with post-nasal drainage, no anterior drip. Left ear feels plugged. + sore throat, able to swallow. Dry cough which causes incontinence . A little wheeze; using albuterol MDI once or twice a day. No N/V/D. No ill contacts. HISTORIES FAMILY HISTORY Adopted: Yes Problem Relation Age of Onset Diabetes Father Heart Father Hypertension Father Lipids Father Diabetes Maternal Grandmother None Sister Diabetes Daughter Cancer Sister thyroid. PAST MEDICAL HISTORY Diagnosis Date Adjustment disorder with depressed mood Arthritis Kidney stones Mass of right parotid gland 04/14/2019 FNA right parotid:Negative for malignant cells. Warthin's tumor. 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 and being monitored by PCP Type II or unspecified type diabetes mellitus without mention of complication, not stated as uncontrolled PAST SURGICAL HISTORY Procedure Laterality Date APPENDECTOMY APPENDECTOMY ARTHRP INTERPOS INTERCARPAL/METACARPAL JOINTS Right 01/23/2020 Right thumb CMC arthroplasty with LRTI, Palmaris longus CHOLECYSTECTOMY COLONOSCOPY DIAGNOSTIC 03/03/2022 dysplastic polyp, repeat in [address] MAXILLOFACIAL WO/ CONT Bilateral mild ethmoid thickening bilaterally ESWL kidney stones OOPHORECTOMY PARTIAL/TOTAL UNI/BI bilaterally with hysterectomy PAST SURGICAL HISTORY OF tubal preg PAST SURGICAL HISTORY OF remote left leg/ ankle with plates and screws PAST SURGICAL HISTORY OF Left 11/29/2011 Bunion Removed PAST SURGICAL HISTORY OF Right 04/2019 parotid mass excision SINUS SURGERY HX 02/11/2018 TONSILLECTOMY HX TOT ABD HYST W/WO RMVL TUBE OVARY W/COLPURETHRXY VAGINAL HYSTERECTOMY Social History Tobacco Use Smoking status: Every Day Packs/day: 1.00 Years: 44.00 Pack years: 44.00 Types: Cigarettes Smokeless tobacco: Never Vaping Use Vaping Use: Never used Substance Use Topics Alcohol use: No Drug use: No ACTIVE PROBLEM LIST Well Controlled 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) Hyperlipidemia With Target Ldl Less Than 70 Depression With Anxiety Fibromyalgia Osteoporosis Tobacco Abuse Atrophic Vaginitis Hallux Valgus, Acquired Dyspareunia Vitamin D Deficiency Degenerative Disc Disease Scoliosis Lumbar Radiculopathy Spinal Stenosis of Lumbar Region Without Neurogenic Claudication Essential Tremor Urge Incontinence History of Thyroid Disease Stage 3a Chronic Kidney Disease (Hcc) Moderate Persistent Asthma, Uncomplicated Fracture of Distal End of Right Radius Chronic Rhinitis Abnormal Colonoscopy Type 2 Diabetes Mellitus With Stage 3a Chronic Kidney Disease, Without Long-Term Current Use of Insulin (Hcc) Hypertensive Kidney Disease With Stage 3a Chronic Kidney Disease (Hcc) Adductor Tendonitis Current Outpatient Medications Medication Sig Dispense Refill lactulose (DUPHALAC, CONSTULOSE) 10 g/15 mL soln Take 15 mL by mouth once daily. 240 mL 2 famotidine (PEPCID) 20 mg tablet Take 1 tablet by mouth twice daily. 60 tablet 5 PARoxetine (PAXIL) 40 mg tablet Take 1 tablet by mouth once daily. 30 tablet 5 fluticasone (FLONASE) 50 mcg/actuation nasal spray Use 2 Sprays in each nostril once daily. 1 Each 5 albuterol HFA (PROVENTIL HFA, VENTOLIN HFA) 90 mcg/actuation inhaler Inhale 2-4 Puffs as instructed every 2 hours as needed for wheezing/shortness of breath. 18 g 1 methocarbamol (ROBAXIN) 500 mg tablet Take 1 tablet by mouth twice daily as needed. 60 tablet 2 Cholecalciferol, Vitamin D3, 50 mcg (2,000 unit) cap Take 1 capsule by mouth once daily. 90 capsule 3 metFORMIN (GLUCOPHAGE) 850 mg tablet Take 1 tablet by mouth twice daily with meals. 60 tablet 11 pravastatin (PRAVACHOL) 20 mg tablet Take 1 tablet by mouth daily at bedtime. 90 tablet 3 Ibandronate 150 mg tablet Take 1 tablet by mouth once every month. In AM with cup of water on empty stomach. Nothing else by mouth and stay upright for 60 min. 3 tablet 4 acetaminophen 650 mg CR tablet Take 650 mg by mouth every 8 hours as needed. blood sugar diagnostic (BLOOD GLUCOSE TEST) test strip Test blood sugar(s) 2 times daily. Dx: Type 2 DM - Uncontrolled E11.65 Insulin: No 200 Strip 3 COMPOUNDED PRESCRIPTION Powerstep Original Full Length` 1 Each 0 No current facility-administered medications for this visit. SPIROMETRY Never done LUNG CANCER SCREENING Never done DIABETIC FOOT EXAM due on 06/01/2022 EXAM: BP 118/66 Pulse 78 Temp 36.4 ?C (97.6 ?F) (Left Tympanic) Resp 16 Wt 71.2 kg (157 lb) SpO2 97% BMI 27.81 kg/m? (more content not included)...[facility]02-21-2023 NoteHNO ID: [id number] Author: Olga Joshua, PT Service: ? Author Type: Physical Therapist Type: Progress Notes Filed: 06/27/2022 2:31 PM Note Text: 06/27/2022 [facility] PHYSICAL THERAPY DISCONTINUANCE OF CARE Plan of Care Period: Start of Care Date: 05/16/22 Last Visit Date: 05/16/2022 Therapy Program: Patient did not return for follow up care as planned. Please refer to last visit note for interventions provided for this episode of care. Assessment: Unable to formally assess goal achievement. Reason for Discontinuation of Care: Patient has not returned to therapy or scheduled additional follow-up appointments. Olga Joshua, PT Episode Visit Count: 1 Therapist That Will Accept/Oversee The Plan Of Care: Olga Joshua Start of Care Date: 05/16/22 Onset Date: 03/15/22 Plan of Care Certification Date: 05/16/22 Next Certification Due Date: 06/20/22 Patient Identified by Name and Date of : Yes REHABILITATION AND SPORTS THERAPY PHYSICAL THERAPY EVALUATION PLAN OF CARE: Assessment: Yamilex Maldonado presents with diagnosis of adductor tenonitis that interferes with stair negotiation, driving (stand to sitting into her recliner chair, sleeps in recliner chair) . She presents with impairments in ADL's, gait, independence in exercise, joint mobility, overall function, patient reported outcome measures, range of motion, strength, and symptom management. . Prognosis for therapy is Good due to: within-session changes, good support system/ coping skills . She will benefit from skilled therapy services to meet the goals established for this plan of care as noted below. Goals for Episode of Care: created on 05/16/22 through 06/27/22 [place] in home exercise program. Patient will decrease pain to 1-2/10 with functional activities to allow patient to improve ambulation, transfers, and standing tolerance for ADLs. Patient will demonstrate increase in bilateral knee quadriceps strength to 4/5 during manual muscle testing in order to improve function for prior functional tasks. Patient will increase flexibility of bilateral hamstrings and hip adductors to WNL to improve ability to maintain proper posture, improve mechanics, and decrease pain. Perform transfers and stair negociation with decreased report of symptoms/pain in 4 weeks. Normal gait. Patient Goals: reduce R medial knee pain with driving, and standing > sit transfers into recliner chair Planned Interventions, Frequency, and Duration: Current Frequency: 2x/week Duration: 4 weeks Total Number of Visits Planned: 8 Planned Treatment Interventions: Therapeutic exercise (03276), Neuromuscular re-education (63730), Manual therapy (51322), Therapeutic activities (79776), Self-mcfp management (53666), Gait Training (00585), Patient/Family/Caregiver Education PLAN FOR NEXT VISIT: Assess symptom response to repeated lumbar flexion while seated and effectiveness for self managing R medial knee pain with standing and walking. Add hamstring and adductor stretching Patient demonstrates good understanding of plan of care and treatment. The above goals and plan of care were discussed and agreed upon by patient/family. SUBJECTIVE: Yamilex Maldonado is a 66 year old female seen today for Patient Goals: reduce R medial knee pain with driving, and standing > sit transfers into recliner chair Functional Limitations: stair negotiation, driving (stand to sitting into her recliner chair, sleeps in recliner chair) Prior Level of Function: Independent without limitations Relevant History Past Relevant Medical Conditions: Diabetes, Falls Preferred Language: Slovak Right or Left Handed: Left Hobbies / Interests: anton and sewing Intake Information: Prescription present Previous Treatment: None Falls Interview: Fall with injury in the last year Falls Intervention: More thorough falls assessment to be performed Pain: Pain Pain Level: 2 Pain Location: Knee - Right Description: Aching Frequency: Intermittent Post Treatment Pain Post Treatment Pain Level: Better Post Treatment Pain Location: Knee - Right Post Treatment Symptoms: much better than when I came in. PROMIS Scales Higher is Better 01/02/2022 02/09/2022 05/12/2022 Phys Func - Score - - - Phys Func - Percentile - - - Social Roles - Score - - - Social Role - Percentile - - - GH Physical - Score 34.9 (Poor) 29.6 (Poor) 26.7 (Poor) GH Physical - Percentile 7 % 2 % 1 % GH Mental - Score 36.3 (Fair) 28.4 (Poor) 28.4 (Poor) GH Mental - Percentile 9 % 2 % 2 % Self-Eff Symptom - Score - - - Self-Eff Symptom - Percentile - - - T-scores: mean of general population = 50. 5 points is clinically meaningfully difference Percentiles provide an indication of how the patient's score ranks in relation to the general population. Higher percentile rankings indicate better function/quality of life. (more content not included)...[facility]02-21-2023 History of Present illness Narrative* Olga Joshua, PT - 05/16/2022 12:11 PM EST Episode Visit Count: 1 Therapist That Will Accept/Oversee The Plan Of Care: Olga Joshua Start of Care Date: 05/16/22 Onset Date: 03/15/22 Plan of Care Certification Date: 05/16/22 Next Certification Due Date: 06/20/22 Patient Identified by Name and Date of : Yes REHABILITATION AND SPORTS THERAPY PHYSICAL THERAPY EVALUATION PLAN OF CARE: Assessment: Yamilex Maldonado presents with diagnosis of adductor tenonitis that interferes with stairnegotiation, driving (stand to sitting into her recliner chair, sleeps in recliner chair) . She presents with impairments in ADL's, gait, independence in exercise, joint mobility, overall function, patient reported outcome measures, range of motion, strength, and symptom management. . Prognosis fortherapy is Good due to: within-session changes, good support system/ coping skills . She will benefit from skilled therapy services to meet the goals established for this plan of care as noted below. Goals for Episode of Care: created on 05/16/22 through 06/27/22 [place] in home exercise program. Patient will decrease pain to 1-2/10 with functional activities to allow patient to improve ambulation, transfers, and standing tolerance for ADLs. Patient will demonstrate increase in bilateral knee quadriceps strength to 4/5 during manual muscletesting in order to improve function for prior functional tasks. Patient will increase flexibility of bilateral hamstrings and hip adductors to WNL to improve ability to maintain proper posture, improve mechanics, and decrease pain. Perform transfers and stair negociation with decreased report of symptoms/pain in 4 weeks. Normal gait. Patient Goals: reduce R medial knee pain with driving, and standing > sit transfers into recliner chair Planned Interventions, Frequency, and Duration: Current Frequency: 2x/week Duration: 4 weeks Total Number of Visits Planned: 8 Planned Treatment Interventions: Therapeutic exercise (66638), Neuromuscular re- education (97088), Manual therapy (21145), Therapeutic activities (85233), Self- mcfp management (60337), Gait Training (73036), Patient/Family/Caregiver Education PLAN FOR NEXT VISIT: Assess symptom response to repeated lumbar flexion while seated and effectiveness for self managing R medial knee pain with standing and walking. Add hamstring and adductor stretching Patient demonstrates good understanding of plan of care and treatment. The above goals and plan of care were discussed and agreed upon by patient/family. SUBJECTIVE: Yamilex Maldonado is a 66 year old female seen today for Patient Goals: reduce R medial knee pain with driving, and standing > sit transfers into recliner chair Functional Limitations: stair negotiation, driving (stand to sitting into her recliner chair, sleeps in recliner chair) Prior Level of Function: Independent without limitations Relevant History Past Relevant Medical Conditions: Diabetes, Falls Preferred Language: Slovak Right or Left Handed: Left Hobbies / Interests: anton and sewing Intake Information: Prescription present Previous Treatment: None Falls Interview: Fall with injury in the last year Falls Intervention: More thorough falls assessment to be performed Pain: Pain Pain Level: 2 Pain Location: Knee - Right Description: Aching Frequency: Intermittent Post Treatment Pain Post Treatment Pain Level: Better Post Treatment Pain Location: Knee - Right Post Treatment Symptoms: much better than when I came in. PROMIS Scales Higher is Better 01/02/2022 02/09/2022 05/12/2022 Phys Func - Score - - - Phys Func - Percentile - - - Social Roles - Score - - - Social Role - Percentile - - - GH Physical - Score 34.9 (Poor) 29.6 (Poor) 26.7 (Poor) GH Physical - Percentile 7 % 2 % 1 % GH Mental - Score 36.3 (Fair) 28.4 (Poor) 28.4 (Poor) GH Mental - Percentile 9 % 2 % 2 % Self-Eff Symptom - Score - - - Self-Eff Symptom - Percentile - - - T-scores: mean of general population = 50. 5 points is clinically meaningfully difference Percentiles provide an indication of how the patient's score ranks in relation to the general population. Higher percentile rankings indicate better function/quality of life. 50th percentile is the average of the general population and indicates half of respondents had a worse score. Lower is Better 05/08/2021 06/06/2021 Fatigue - Score 64 (moderate) 68 (moderate) Fatigue - Percentile 8 % 4 % T-scores: mean of general population = 50. 5 points is clinically meaningfully difference Percentiles provide an indication of how the patient's score ranks in relation to the general population. Higher percentile rankings indicate better function/quality of life. 50th percentile is the average of the general population and indicates half of respondents had a worse score. OBJECTIVE MEASURES WITH LEVEL OF FUNCTION: Posture / Alignment Posture: Increased thoracic kyphosis, Decreased lumbar lordosis Knee Observations R Knee Palpation Tenderness: No tenderness noted Sensation - Lower Extremity LE Light Touch Sensation: Grossly Intact LE AROM R Knee Extension: -12 Degrees (limited due to LBP) R Knee Flexion: 140 Degrees (denies pain) L Knee Extension: -3 Degrees (limited due to LBP) L Knee Flexion: 140 Degrees (denies pain) LE PROM R Knee Extension: 0 Degrees (supine, denies pain) L Knee Extension: 0 Degrees (supine, denies pain) LE Flexibility Flexibility: Hip Adductor, Hamstring Flexibility R Hamstring Flexibility: limited L Hamstring Flexibility: limited R Adductor Flexibility: limited L Adductor Flexibility: limited Special Tests - Hip and Spine Hip and Spine Special Tests: FADDIR Test, CLARIBEL Test, Elvia's Test, Scour Test, SLR Test, Slump Test, Active SLR SLR Test: Left Positive, Right Negative Slump Test: Left Positive, Right Negative CLARIBEL Test: Left Positive, Right Positive FADDIR Test: Right Negative, Left Negative Scour Test: Left Negative, Right Negative Elvia's Test: Left Negative, Right Negative Active SLR: Left Positive, Right Negative Gait Gait: Independent Gait Distance (feet): 100 Gait Device: None Gait Deviations: General Deviations General Deviations/Observations: Flexed trunk posture, Monalisa decreased, Step length decreased, Shuffling Gait Education: Education Learning Preferences: Demonstration, Explanation, Performance, Printed Materials Barriers: None Learning/educational needs: Plan of Care, Home exercise program, Gait Training, Posture Education Provided: Yes, see treatment interventions for education provided Education Provided To: Patient Education Mode/Type: Demonstration, Explanation/Discussion, Literature/Printed Materials, Performance Response to Education/Teach Back: States/Identifies, Return Demonstration TREATMENT: PT Treatment Interventions: Therapeutic Exercise, Self-Senior Care Management Evaluation Therapeutic Exercise: 1: *seated repeated lumbar flexion 2-3 sets of 10 as needed to resolve back and medial R knee pain 2: supine B KTC stretch 1x30 sec 3: supine single KTC stretch 1x30 sec 4: attempted CLARIBEL stretch R and LLEs supine -- dc due to increased low back pain Skilled Intervention: Patient was educated in proper exercise technique and purpose for exercises. Reviewed and educated patient on additions/changes for home exercise program as above (*). Skilled judgment was provided in selection of appropriate interventions. Provided written instruction for home exercise program to facilitate proper performance and compliance. Correct performance of therapeutic exercises was facilitated with verbal, visual, and tactile cuing. Educated patient on rationale for performing exercises in regards to decreasing fatigue , increase ease of ADL, and ROM and function . Patient education as noted. Self-Senior Care Management: 1: *discussed lumbar stenosis and neurogenic claudication as being a possible cause of R medial knee symptoms due to response to repeated lumbar flexion movements today 2: *explained lumbar spine biomechanics and used illustrations to explain clinical reasoning for flexion directional preference exercises Skilled Intervention: Skilled judgment in the selection of proper modification for activity of daily living/home management based on clinical presentation, deficits, and needs. Provided written instruction for activities of daily living techniques to facilitate proper performance and compliance. Reviewed patient specific diagnosis in relation to activities of daily living/home management. Activity progression based on professional judgement. Reviewed and educated patient on additions/changes for home program as noted above with an (*). Billing * Evaluation Low Complexity: 1 Unit Therapeutic Exercise Treatment Minutes: 15 Self-Care/Home Management Treatment Minutes: 10 Total Treatment Time Minutes (timed/untimed): 45 Olga Joshua PT [facility] NoteHNO ID: [id number] Author: Ashli Silva PA-C Service: ? Author Type: Physician Sign Hanger Supervisor Type: Progress Notes Filed: 05/12/2022 1:09 PM Note Text: 66 year old female with c/o having issues with right knee. R knee has been bothering her for months, but progressively worsening Uses R leg/knee to pivot to sit down in chair to alleviate pressure on her wrists Intermittent swelling, with a constant ache Pain, rated about 6-7/10 Worse with standing up from seat position, walking, any weight bearing exercises, driving Better with relaxing and sitting down. Tried Tylenol Arthritis 650mg q4-6h with no relief. (+) swelling after walking or driving for extended period of time (+) numbness on medial side of R knee and with radiate down into feet, not associated with any specific activities (+) weakness in R knee when walking, feels like it could give out on her Hx of falling, last fall was about 1 month, did not hit her head, no LOC Denies numbness/tingling in L leg/foot, incontinence, Saw Dr. Barnes about Knee Pain in December 2021 XR KNEE 4V AP/PA BOTH+LAT/WILDER RT: FINDINGS: AP, PA, and merchant views of both knees, and a lateral view of the right knee have been obtained. The bones appear osteopenic. There is no acute fracture. There is mild medial femoral tibial joint space narrowing bilaterally. Mild lateral femoral patellar narrowing. IMPRESSION: Minimal joint space narrowing with no acute process seen. Dr. Barnes wanted to give a cortisone injection, but patient decline Bowel doing much better. Using lactulose which helps well, twice a day. Grandson had license revoked for driving under influence of marijuana, feeling suicidal. HISTORIES FAMILY HISTORY Adopted: Yes Problem Relation Age of Onset Diabetes Father Heart Father Hypertension Father Lipids Father Diabetes Maternal Grandmother None Sister Diabetes Daughter Cancer Sister thyroid. PAST MEDICAL HISTORY Diagnosis Date Adjustment disorder with depressed mood Arthritis Kidney stones Mass of right parotid gland 04/14/2019 FNA right parotid:Negative for malignant cells. Warthin's tumor. 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 and being monitored by PCP Type II or unspecified type diabetes mellitus without mention of complication, not stated as uncontrolled PAST SURGICAL HISTORY Procedure Laterality Date APPENDECTOMY APPENDECTOMY ARTHRP INTERPOS INTERCARPAL/METACARPAL JOINTS Right 01/23/2020 Right thumb CMC arthroplasty with LRTI, Palmaris longus CHOLECYSTECTOMY COLONOSCOPY DIAGNOSTIC 03/03/2022 dysplastic polyp, repeat in [address] MAXILLOFACIAL WO/ CONT Bilateral mild ethmoid thickening bilaterally ESWL kidney stones OOPHORECTOMY PARTIAL/TOTAL UNI/BI bilaterally with hysterectomy PAST SURGICAL HISTORY OF tubal preg PAST SURGICAL HISTORY OF remote left leg/ ankle with plates and screws PAST SURGICAL HISTORY OF Left 11/29/2011 Bunion Removed PAST SURGICAL HISTORY OF Right 04/2019 parotid mass excision SINUS SURGERY HX 02/11/2018 TONSILLECTOMY HX TOT ABD HYST W/WO RMVL TUBE OVARY W/COLPURETHRXY VAGINAL HYSTERECTOMY Social History Tobacco Use Smoking status: Every Day Packs/day: 1.00 Years: 44.00 Pack years: 44.00 Types: Cigarettes Smokeless tobacco: Never Vaping Use Vaping Use: Never used Substance Use Topics Alcohol use: No Drug use: No ACTIVE PROBLEM LIST Well Controlled 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) Hyperlipidemia With Target Ldl Less Than 70 Depression With Anxiety Fibromyalgia Osteoporosis Tobacco Abuse Atrophic Vaginitis Hallux Valgus, Acquired Dyspareunia Vitamin D Deficiency Degenerative Disc Disease Scoliosis Lumbar Radiculopathy Spinal Stenosis of Lumbar Region Without Neurogenic Claudication Essential Tremor Urge Incontinence History of Thyroid Disease Stage 3a Chronic Kidney Disease (Hcc) Moderate Persistent Asthma, Uncomplicated Fracture of Distal End of Right Radius Chronic Rhinitis Abnormal Colonoscopy Type 2 Diabetes Mellitus With Stage 3a Chronic Kidney Disease, Without Long-Term Current Use of Insulin (Hcc) Hypertensive Kidney Disease With Stage 3a Chronic Kidney Disease (Hcc) Current Outpatient Medications Medication Sig Dispense Refill lactulose (DUPHALAC, CONSTULOSE) 10 g/15 mL soln Take 15 mL by mouth once daily. 240 mL 2 famotidine (PEPCID) 20 mg tablet Take 1 tablet by mouth twice daily. 60 tablet 5 PARoxetine (PAXIL) 40 mg tablet Take 1 tablet by mouth once daily. 30 tablet 5 fluticasone (FLONASE) 50 mcg/actuation nasal spray Use 2 Sprays in each nostril once daily. 1 Each 5 albuterol HFA (PROVENTIL HFA, VENTOLIN HFA) 90 mcg/actuation inhaler Inhale 2-4 Puffs as instructed every 2 hours as needed for wheezing/shortness of breath. 1 (more content not included)...[facility]02-17-2023 History of Present illness Narrative* Ashli Silva PA-C - 05/12/2022 11:00 AM EST 66 year old female with c/o having issues with right knee. R knee has been bothering her for months, but progressively worsening Uses R leg/knee to pivot to sit down in chair to alleviate pressure on her wrists Intermittent swelling, with a constant ache Pain, rated about 6-7/10 Worse with standing up from seat position, walking, any weight bearing exercises, driving Better with relaxing and sitting down. Tried Tylenol Arthritis 650mg q4-6h with no relief. (+) swelling after walking or driving for extended period of time (+) numbness on medial side of R knee and with radiate down into feet, not associated with any specific activities (+) weakness in R knee when walking, feels like it could give out on her Hx of falling, last fall was about 1 month, did not hit her head, no LOC Denies numbness/tingling in L leg/foot, incontinence, Saw Dr. Barnes about Knee Pain in December 2021 XR KNEE 4V AP/PA BOTH+LAT/WILDER RT: FINDINGS: AP, PA, and merchant views of both knees, and a lateral view of the right knee have been obtained. The bones appear osteopenic. There is no acute fracture. There is mild medial femoral tibial joint space narrowing bilaterally. Mild lateral femoral patellar narrowing. IMPRESSION: Minimal joint space narrowing with no acute process seen. Dr. Barnes wanted to give a cortisone injection, but patient decline Bowel doing much better. Using lactulose which helps well, twice a day. Grandson had license revoked for driving under influence of marijuana, feeling suicidal. HISTORIES FAMILY HISTORY Adopted: Yes Problem Relation Age of Onset Diabetes Father Heart Father Hypertension Father Lipids Father Diabetes Maternal Grandmother None Sister Diabetes Daughter Cancer Sister thyroid. PAST MEDICAL HISTORY Diagnosis Date Adjustment disorder with depressed mood Arthritis Kidney stones Mass of right parotid gland 04/14/2019 FNA right parotid:Negative for malignant cells. Warthin's tumor. 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 and being monitored by PCP Type II or unspecified type diabetes mellitus without mention of complication, not stated as uncontrolled PAST SURGICAL HISTORY Procedure Laterality Date APPENDECTOMY APPENDECTOMY ARTHRP INTERPOS INTERCARPAL/METACARPAL JOINTS Right 01/23/2020 Right thumb CMC arthroplasty with LRTI, Palmaris longus CHOLECYSTECTOMY COLONOSCOPY DIAGNOSTIC 03/03/2022 dysplastic polyp, repeat in [address] MAXILLOFACIAL WO/ CONT Bilateral mild ethmoid thickening bilaterally ESWL kidney stones OOPHORECTOMY PARTIAL/TOTAL UNI/BI bilaterally with hysterectomy PAST SURGICAL HISTORY OF tubal preg PAST SURGICAL HISTORY OF remote left leg/ ankle with plates and screws PAST SURGICAL HISTORY OF Left 11/29/2011 Bunion Removed PAST SURGICAL HISTORY OF Right 04/2019 parotid mass excision SINUS SURGERY HX 02/11/2018 TONSILLECTOMY HX TOT ABD HYST W/WO RMVL TUBE OVARY W/COLPURETHRXY VAGINAL HYSTERECTOMY Social History Tobacco Use Smoking status: Every Day Packs/day: 1.00 Years: 44.00 Pack years: 44.00 Types: Cigarettes Smokeless tobacco: Never Vaping Use Vaping Use: Never used Substance Use Topics Alcohol use: No Drug use: No ACTIVE PROBLEM LIST Well Controlled 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) Hyperlipidemia With Target Ldl Less Than 70 Depression With Anxiety Fibromyalgia Osteoporosis Tobacco Abuse Atrophic Vaginitis Hallux Valgus, Acquired Dyspareunia Vitamin D Deficiency Degenerative Disc Disease Scoliosis Lumbar Radiculopathy Spinal Stenosis of Lumbar Region Without Neurogenic Claudication Essential Tremor Urge Incontinence History of Thyroid Disease Stage 3a Chronic Kidney Disease (Hcc) Moderate Persistent Asthma, Uncomplicated Fracture of Distal End of Right Radius Chronic Rhinitis Abnormal Colonoscopy Type 2 Diabetes Mellitus With Stage 3a Chronic Kidney Disease, Without Long-Term Current Use of Insulin (Hcc) Hypertensive Kidney Disease With Stage 3a Chronic Kidney Disease (Hcc) Current Outpatient Medications Medication Sig Dispense Refill lactulose (DUPHALAC, CONSTULOSE) 10 g/15 mL soln Take 15 mL by mouth once daily. 240 mL 2 famotidine (PEPCID) 20 mg tablet Take 1 tablet by mouth twice daily. 60 tablet 5 PARoxetine (PAXIL) 40 mg tablet Take 1 tablet by mouth once daily. 30 tablet 5 fluticasone (FLONASE) 50 mcg/actuation nasal spray Use 2 Sprays in each nostril once daily. 1 Each 5 albuterol HFA (PROVENTIL HFA, VENTOLIN HFA) 90 mcg/actuation inhaler Inhale 2-4 Puffs as instructedevery 2 hours as needed for wheezing/shortness of breath. 18 g 1 methocarbamol (ROBAXIN) 500 mg tablet Take 1 tablet by mouth twice daily as needed. 60 tablet 2 Cholecalciferol, Vitamin D3, 50 mcg (2,000 unit) cap Take 1 capsule by mouth once daily. 90 capsule3 metFORMIN (GLUCOPHAGE) 850 mg tablet Take 1 tablet by mouth twice daily with meals. 60 tablet 11 pravastatin (PRAVACHOL) 20 mg tablet Take 1 tablet by mouth daily at bedtime. 90 tablet 3 Ibandronate 150 mg tablet Take 1 tablet by mouth once every month. In AM with cup of water on emptystomach. Nothing else by mouth and stay upright for 60 min. 3 tablet 4 acetaminophen 650 mg CR tablet Take 650 mg by mouth every 8 hours as needed. blood sugar diagnostic (BLOOD GLUCOSE TEST) test strip Test blood sugar(s) 2 times daily. Dx: Type 2 DM - Uncontrolled E11.65 Insulin: No 200 Strip 3 COMPOUNDED PRESCRIPTION Powerstep Original Full Length` 1 Each 0 No current facility-administered medications for this visit. SPIROMETRY Never done LUNG CANCER SCREENING Never done ADVANCE DIRECTIVE DISCUSSION due on 03/26/2022 DIABETIC FOOT EXAM due on 06/01/2022 EXAM: BP 108/66 Pulse 76 Resp 16 Wt 72.1 kg (159 lb) SpO2 97% BMI 28.17 kg/m Pleasant elderly female in no acute distress. Alert and oriented all spheres. Normal affect and cognition. Speech normal. No deficits to learning or comprehension. Skin warm, dry, pink to lips and nailbeds. Normal turgor. Respirations regular and unlabored. Chest is normal shape. Lungs are clear to all lopez with good air exchange through out. HRRR without murmur or gallop. No lifts, heaves, or rubs. Extrem: no clubbing or cyanosis. Edema: none No swelling in L leg. Extremities are warm and pink with prompt capillary refill. R leg is larger in size compared to L leg, due to dominance. Normal strength in lower extremities. Neuro and sensory intact in lower extremities. Tenderness with palpation of adductor tendon and MCL on R leg. ASSESSMENT/PLAN: 1. Adductor tendonitis - ICD9: 727.09, ICD10: M76.899 - Ice/ moist heat, lineaments, OTC analgesics as needed. Stretching and posture reviewed. - CONSULT TO PHYSICAL THERAPY - ADVANCE CARE PLAN DISCUSSION Ashli Silva PA-C documented [facility] Miscellaneous Notes* Telephone Encounter - Sonia Little RN - 05/12/2022 9:57 AM EST Patient scheduled mammogram 06/14/2022. Sonia Little RN * Telephone Encounter - Keila Limon - 05/12/2022 9:46 AM EST Called PT unable to LVM called daughter will have mom call back to schedule mammo. Keila FIERRO * Telephone Encounter - Ethel Robertson Ma - 05/11/2022 9:01 AM EST Patient was notified, please call to schedule Ethel Robertson Ma * Telephone Encounter - Ashli Silva PA-C - 05/11/2022 6:25 AM EST Please let her know radiologist want additional views. Telephone on 05/11/22 [facility] DIAGNOSTIC BILAT US BREAST LTD LT US BREAST LTD RT Thanks, Jj Silva PA-C [facility] Miscellaneous Notes* Letter - Mammography Coordinator - 05/10/2022 3:49 PM EST May 11, 2022 PID: [id number] Yamilex Maldonado [address] [place] [address] Dear Ms. Maldonado, Your recent breast imaging exam on 05/10/2022 showed a possible finding that requires additional imaging studies for a complete evaluation. Most such findings are probably benign (not cancer). If you have a healthcare provider who ordered/prescribed your screening mammogram: Please call [phone] or [phone]: [phone] to schedule an appointment for your additional imaging (if youhave not already done so). If you DO NOT have a healthcare provider (ie you did not have an order/prescription for your screening mammogram): Please call to schedule an appointment for your additional imaging (if you have not already done so). You must have an order/prescription from your physician when calling to schedule your appointment. If your order/prescription is not electronic, you must bring the hard copy with you on the day of your exam to avoid delays. Your imaging studies and reports are kept on file [facility] as part of [facility] permanent medical record, and are available for your continuing care. Thank you for allowing us to help in meeting your health care needs. Sincerely, Dr. Benoit Interpreting Radiologist [facility] (Additional imaging) documented in this encounter[facility]23 NoteHNO ID: [id number] Author: RT Kadi(Patrizia) Service: ? Author Type: Technologist Type: Progress Notes Filed: 05/10/2022 1:00 PM Note Text: Radiology Service Progress Note PATIENT NAME: Yamilex Maldonado DATE OF SERVICE: May 10, 2022 TIME: 1:00 PM PATIENT IDENTITY VERIFICATION COMPLETED USING TWO (2) IDENTIFIERS: Name and Date of confirmed by patient verbally. FALL SCREENING: Has the patient had 2 falls in the last year or 1 fall with injury or currently using an Ambulatory Assistive Device (Walker, Cane, Wheelchair, Crutches, etc.)? No PATIENT GENDER DATA: Female. status: : No status: NO. PATIENT RELEVANT IMPLANT DATA REVIEWED: Not Applicable RADIOLOGY DEPARTMENT: Mammography PERIPHERAL IV DATA: Not applicable SIGNED BY: RT Kadi(Patrizia) May 10, 2022 1:00 [facility]02-15-2023 History of Present illness Narrative* Zohreh Bah RT(R) - 05/10/2022 1:10 PM EST Radiology Service Progress Note PATIENT NAME: Yamilex Maldonado DATE OF SERVICE: May 10, 2022 TIME: 1:00 PM PATIENT IDENTITY VERIFICATION COMPLETED USING TWO (2) IDENTIFIERS: Name and Date of confirmedby patient verbally. FALL SCREENING: Has the patient had 2 falls in the last year or 1 fall with injury or currently using an Ambulatory Assistive Device (Walker, Cane, Wheelchair, Crutches, etc.)? No PATIENT GENDER DATA: Female. status: : No status: NO. PATIENT RELEVANT IMPLANT DATA REVIEWED: Not Applicable RADIOLOGY DEPARTMENT: Mammography PERIPHERAL IV DATA: Not applicable SIGNED BY: RT Kadi(R) May 10, 2022 1:00 PM [facility] Miscellaneous Notes* Telephone Encounter - Bella Barney LPN - 05/04/2022 1:16 PM EST Patient has been identified by name and date of : Yes, Provider Ricardo Date 05/04/22 Time 1:16 PM Patient phones for refill(s): Requested Prescriptions Pending Prescriptions Disp Refills lactulose (DUPHALAC, CONSTULOSE) 10 g/15 mL soln 240 mL 2 Sig: Take 15 mL by mouth once daily. Date of last office visit in primary care: 04/03/2022 Last 2 Encounter Wt Readings: Date: Wt: 04/03/2022 70.8 kg (156 lb) 02/13/2022 70.3 kg (155 lb) Please advise. Thank you. Bella Barney LPN documented [facility] History of Present illness Narrative* Venecia Glynn Ma - 04/20/2022 12:01 PM EST PT ASSESSMENT - CASTING ROOM [place] presents for Application of brace. Applied modabber brace to Left wrist Patient has been instructed in Care and proper application of brace.. Venecia Glynn Ma * Marcus Barnes MD - 04/20/2022 10:53 AM EST Marcus Barnes MD Department of Orthopaedics Orthopaedics [address] [place] [id number] Dept: [phone] Dept April 20, 2022 CHIEF COMPLAINT: Established Patient and Pain of the Left Wrist HPI Patient here today for left wrist pain. States she fell at her aunts house on 04/12/2022. She was seen at [facility] ED following the injury. She is left hand dominant. Arrives with brittney wrap on left hand/wrist. She reports that she was put into a black brace at the ED, but it was bothering her more than the injury. ASSESSMENT: M25.532 Left wrist pain (primary encounter diagnosis) PLAN: xrays look normal. We'll switch her to a cock up brace. Activities as tolerated. OBJECTIVE: Ms. Yamilex Maldonado is a pleasant 66 year old in no apparent distress. Gen:There were no vitals taken for this visit. nl development, non obese, no deformities ENT: Normocephalic, normal hearing, moist mucosa CV: Pulses:Radial= 2+ and symmetric, capillary refill < 2 secs, no peripheral edema/varicosities Skin: no rash, bruising or lesions. Good turgor. Psych: cooperative and appropriate, alert and oriented x 3, good mood and affect. Musculoskeletal: Mild swelling. Good ROM. Min, resolving ecchymosis. Imagin views from outside hospital with normal xrays. Supporting Subjective Information Below: Past Surgical History: PAST SURGICAL HISTORY Procedure Laterality Date APPENDECTOMY APPENDECTOMY ARTHRP INTERPOS INTERCARPAL/METACARPAL JOINTS Right 01/23/2020 Right thumb CMC arthroplasty with LRTI, Palmaris longus CHOLECYSTECTOMY COLONOSCOPY DIAGNOSTIC 03/03/2022 dysplastic polyp, repeat in [address] MAXILLOFACIAL WO/ CONT Bilateral mild ethmoid thickening bilaterally ESWL kidney stones OOPHORECTOMY PARTIAL/TOTAL UNI/BI bilaterally with hysterectomy PAST SURGICAL HISTORY OF tubal preg PAST SURGICAL HISTORY OF remote left leg/ ankle with plates and screws PAST SURGICAL HISTORY OF Left 11/29/2011 Bunion Removed PAST SURGICAL HISTORY OF Right 04/2019 parotid mass excision SINUS SURGERY HX 02/11/2018 TONSILLECTOMY HX TOT ABD HYST W/WO RMVL TUBE OVARY W/COLPURETHRXY VAGINAL HYSTERECTOMY Medications: Current Outpatient Medications Medication Sig PARoxetine (PAXIL) 40 mg tablet Take 1 tablet by mouth once daily. fluticasone (FLONASE) 50 mcg/actuation nasal spray Use 2 Sprays in each nostril once daily. albuterol HFA (PROVENTIL HFA, VENTOLIN HFA) 90 mcg/actuation inhaler Inhale 2-4 Puffs as instructedevery 2 hours as needed for wheezing/shortness of breath. lactulose (DUPHALAC, CONSTULOSE) 10 g/15 mL soln Take 15 mL by mouth once daily. methocarbamol (ROBAXIN) 500 mg tablet Take 1 tablet by mouth twice daily as needed. Cholecalciferol, Vitamin D3, 50 mcg (2,000 unit) cap Take 1 capsule by mouth once daily. metFORMIN (GLUCOPHAGE) 850 mg tablet Take 1 tablet by mouth twice daily with meals. pravastatin (PRAVACHOL) 20 mg tablet Take 1 tablet by mouth daily at bedtime. acetaminophen 650 mg CR tablet Take 650 mg by mouth every 8 hours as needed. famotidine (PEPCID) 20 mg tablet Take 1 tablet by mouth twice daily. Ibandronate 150 mg tablet Take 1 tablet by mouth once every month. In AM with cup of water on emptystomach. Nothing else by mouth and stay upright for 60 min. blood sugar diagnostic (BLOOD GLUCOSE TEST) test strip Test blood sugar(s) 2 times daily. Dx: Type 2 DM - Uncontrolled E11.65 Insulin: No COMPOUNDED PRESCRIPTION Powerstep Original Full Length` No current facility-administered medications for this visit. Allergies: Ampicillin, Avelox [Moxifloxacin Hcl], Bactrim [Sulfamethoxazole- Trimethoprim], Doxycycline, and Steroids [Corticosteroids (Glucocorticoids)] ROS: General (negative for fatigue, malaise, weight loss/gain) HEENT (negative for headache, earache, recent vision changes, sinus pain, sore throat) Respiratory (no recent shortness of breath, hemoptysis) CV (negative for chest tightness, palpitations) Musculoskeletal (see HPI) Psych (no depression, anxiety) Marcus Barnes MD documented in this [facility]22 History of Present illness Narrative* Sophie Medrano PA-C - 03/24/2022 3:46 PM EST In lieu of an in-person visit due to COVID-19 concerns, a distance health visit was performed on the patient. Patient is aware that I am not fully able to assess symptoms and do a full physical examination including vital signs assessment at this time. Patient consents to this encounter. FOLLOW UP VISIT - ENDOSCOPY NAME: Yamilex Maldonado [facility] NO.: [id number] DATE OF SERVICE: 03/24/2022 : 1955 REFERRING PHYSICIAN: Ashli Silva PA-C Yamilex is a patient I am following with Dr. Bravo for chronic constipation and need for colonoscopy.Dr. Bravo performed lower endoscopy on 03/03/22. Findings per operative report showed: Impression: - Non-bleeding external and internal hemorrhoids. - One 4 to 5 mm polyp in the cecum, removed with a hot snare. Resected and retrieved. - One 5 to 7 mm polyp at the hepatic flexure, removed with a hot snare. Resected and retrieved. - Two 9 to 12 mm polyps in the rectum, removed with a hot snare. Resected and retrieved. Pathology demonstrated: FINAL DIAGNOSIS A. Cecum, polyp, biopsy: -Fragments of tubular adenoma B. Hepatic flexure, polyp, biopsy: -Sessile serrated polyp with cytologic dysplasia. See comment. C. Rectum, polyp x2, biopsy: -Fragments of tubular adenoma The patient notes no new complaints since the procedure. Patient states notes severe constipation since September-states will feel full up into upper abdomen, this will gradually worsen throughout the week until has BM. States this will briefly relieve symptoms and then cycle starts again. Assessment IMPRESSION: s/p colonoscopy with polypectomy-multiple polyps including dysplastic sessile serrated polyp PLAN: The operative findings and pathology report were reviewed with the patient, and the patient has hadthe opportunity to ask questions and have questions answered. If the patient notes any problems or changes in bowel function, the patient should contact me immediately. Otherwise I recommend follow up endoscopy in 1 year due to polyp with dysplasia. HM updated and recall letter generated. Regarding chronic constipation, would recommend follow-up with PCP and consider possible GI consultif symptoms worsen or persist Patient verbalized understanding of all above and agreed with the plan Diagnoses: (D36.9) Tubular adenoma (primary encounter diagnosis) (K63.5) Serrated polyp of colon (K63.5) Dysplastic colon polyp I spent a total of 24 minutes on the date of the service which included preparing to see the patient, completing clinical documentation, obtaining and/or reviewing separately obtained history, communicating with other HCPs (not separately reported), independently interpreting results (not separately reported), and communicating results to the patient/family/caregiver. Sophie Medrano PA-C documented in this encounter[facility]22 Nurse Note* Loreta Brownlee RN - 03/03/2022 9:58 AM EST Pt received in PACU. Pt extremely drowsy, but arouses slightly. Appears comfortable. Abd soft and non distended. Loreta Brownlee RN documented in this encounter[facility]12-[facility]-2022 History and physical note * Deepa Bravo MD - 03/03/2022 9:00 AM EST UPDATED PROCEDURAL SEDATION HISTORY AND PHYSICAL EXAMINATION SERVICE DATE: 03/03/2022 SERVICE TIME: 8:58 PHYSICAL EXAM MUST BE COMPLETED ON ADMISSION PROCEDURE: colonoscopy, possible biopsies Procedure Indications: constipation, abdominal pain/bloating The History and Physical (completed in the past 30 days) has been reviewed and the patient has beenexamined. The contents accurately reflect the patient's condition with the following additions or revisions since the H&P was completed. ASA Class: ASA Class:: Patient with mild systemic disease Examination indicates no changes. AIRWAY: Airway Visualization of Uvula: Yes Mouth opening greater than 2 fingerbreadths: Yes Neck Full Range of Motion: Yes LUNGS: Lungs clear to auscultation CARDIAC: Regular rhythm,Regular rate Provisional Diagnosis/Treatment Plan: colonosocpy, possible biopsies SEDATION GOAL: Moderate This H&P can be found in the Electronic Medical Record . SIGNATURE: Deepa Bravo MD PATIENT NAME: Yamilex Maldonado DATE: March 03, 2022 TIME: 8:58 AM Source Note - Deepa Bravo MD - 03/03/2022 9:00 AM EST Images from the original note were not included. HISTORY AND PHYSICAL Yamilex Patton Jess 1955 REFERRING PHYSICIAN: Ashli Silva PA-C CHIEF COMPLAINT: Consult (Epigastric pain, bloating, nausea, constipation) HPI: The patient is a 66 year old female referred for endoscopy. Yamilex notes long history of constipation - having a bowel movement about once a week. This would be followed by one to two days of loose stools for bowel movements. However, lately (several months ), she has not had the loose bowel movements and has to induce bowel movements using laxatives. She does states that in the past stress would relieve the period of constipation. She denies noting any blood in her stools. She notes lower abdominal cramping pain prior to a bowel movement. She also notes increased abdominal bloating. She also notes increased frequency of urination. She also notes some urinary incontinence. The patient notes no colon cancer in immediate family. The patient has not had previous colonoscopy. PAST MEDICAL HISTORY Diagnosis Date Adjustment disorder with depressed mood Kidney stones Mass of right parotid gland 04/14/2019 FNA right parotid:Negative for malignant cells. Warthin's tumor. 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 and being monitored by PCP Type II or unspecified type diabetes mellitus without mention of complication, not stated as uncontrolled PAST SURGICAL HISTORY Procedure Laterality Date APPENDECTOMY APPENDECTOMY ARTHRP INTERPOS INTERCARPAL/METACARPAL JOINTS Right 01/23/2020 Right thumb CMC arthroplasty with LRTI, Palmaris longus CHOLECYSTECTOMY CT MAXILLOFACIAL WO/ CONT Bilateral mild ethmoid thickening bilaterally ESWL kidney stones OOPHORECTOMY PARTIAL/TOTAL UNI/BI bilaterally with hysterectomy PAST SURGICAL HISTORY OF tubal preg PAST SURGICAL HISTORY OF remote left leg/ ankle with plates and screws PAST SURGICAL HISTORY OF Left 11/29/2011 Bunion Removed PAST SURGICAL HISTORY OF Right 04/2019 parotid mass excision SINUS SURGERY HX 02/11/2018 TOT ABD HYST W/WO RMVL TUBE OVARY W/COLPURETHRXY VAGINAL HYSTERECTOMY Current Outpatient Medications Medication Sig methocarbamol (ROBAXIN) 500 mg tablet Take 1 tablet by mouth twice daily as needed. Omeprazole Magnesium (PRILOSEC OTC) 20 mg tablet Take 1 tablet by mouth daily before breakfast. 1/2hr before meal. Cholecalciferol, Vitamin D3, 50 mcg (2,000 unit) cap Take 1 capsule by mouth once daily. albuterol HFA (PROVENTIL HFA, VENTOLIN HFA) 90 mcg/actuation inhaler Inhale 2-4 Puffs as instructedevery 2 hours as needed for wheezing/shortness of breath. metFORMIN (GLUCOPHAGE) 850 mg tablet Take 1 tablet by mouth twice daily with meals. pravastatin (PRAVACHOL) 20 mg tablet Take 1 tablet by mouth daily at bedtime. Ibandronate 150 mg tablet Take 1 tablet by mouth once every month. In AM with cup of water on emptystomach. Nothing else by mouth and stay upright for 60 min. PARoxetine (PAXIL) 40 mg tablet Take 1 tablet by mouth once daily. traMADol (ULTRAM) 50 mg tablet Take 1 tablet by mouth twice daily as needed for pain. acetaminophen 650 mg CR tablet Take 650 mg by mouth every 8 hours as needed. fluticasone (FLONASE) 50 mcg/actuation nasal spray Use 2 Sprays in each nostril once daily. blood sugar diagnostic (BLOOD GLUCOSE TEST) test strip Test blood sugar(s) 2 times daily. Dx: Type 2 DM - Uncontrolled E11.65 Insulin: No polyethylene glycol 3350 (MIRALAX) 17 gram/dose powder 17gm with water or juice daily (Patient not taking: Reported on 12/20/2021) blood sugar diagnostic (BLOOD GLUCOSE TEST) test strip Test blood sugar(s) 3 times daily. Dx: Type 2 DM - Controlled E11.9 Insulin: No (Patient not taking: Reported on 12/20/2021) COMPOUNDED PRESCRIPTION Powerstep Original Full Length` (Patient not taking: Reported on 12/20/2021) ALLERGIES: Ampicillin, Avelox [Moxifloxacin Hcl], Bactrim [Sulfamethoxazole- Trimethoprim], Doxycycline, and Steroids [Corticosteroids (Glucocorticoids)] PERSONAL HISTORY: Social History Tobacco Use Smoking status: Every Day Packs/day: 1.00 Years: 44.00 Pack years: 44.00 Types: Cigarettes Smokeless tobacco: Never Vaping Use Vaping Use: Never used Substance Use Topics Alcohol use: No Drug use: No FAMILY HISTORY Adopted: Yes Problem Relation Age of Onset Diabetes Father Heart Father Hypertension Father Lipids Father Diabetes Maternal Grandmother None Sister Diabetes Daughter Cancer Sister thyroid. The review of systems data was entered by the nurse and reviewed by ks Nursing Notes: Kathy Deshpande LPN 12/20/2021 9:32 AM Signed REVIEW OF SYSTEMS: General: The patient notes fatigue, denies weight loss, denies weight gain, denies feeling hot, andnotes feelings of cold. Eyes: The patient denies glaucoma, denies eye injury/surgery, wears glasses or contacts. Ear/Nose/Throat: The patient notes allergies, denies hayfever, denies ear infections, and denies bloody noses. Cardiovascular: The patient denies chest pain, denies heart disease, denies high blood pressure,denies cardiac stent, denies prior heart attack, denies irregular heart beat, denies high cholesterol, denies poor circulation, denies heart failure, other cardiac issues, denies claudication, denies cold feet, denies peripheral arterial stent. Respiratory: The patient denies tuberculosis, denies pneumonia, denies frequent cough, denies pulmonary embolism, denies shortness of breath, and denies coughing up blood. Gastrointestinal: The patient denies difficulty swallowing, denies acid reflux, denies ulcers, denies vomiting, denies jaundice/hepatitis, denies gallbladder problems, denies black or tarry stools, denies hemorrhoids, denies bleeding from rectum, denies diverticulitis, denies constipation, denies diarrhea, denies loss of stool control, and denies hernias. Kidney/Bladder: The patient notes kidney stones, denies urine infections, and denies bloody urine. Skin: The patient denies a history of skin cancer, denies bleeding/changing moles, and denies a history of skin rash. Neurologic: The patient denies a history of epilepsy/convulsions, denies headaches, denies head/spinal injuries, and denies stroke/TIA. Psychiatric: The patient denies psychiatric medications, denies depression, and denies voices, denies substance abuse. Endocrine: The patient denies thyroid disorders, notes diabetes, and denies hormonal problems. Hematologic: The patient denies a history of bruising, denies bleeding, and denies anemia, denies blood clots. Infections: The patient denies a history of measles and mumps, denies rheumatic fever, and denies sexually transmitted diseases. Musculoskeletal: The patient denies back pain/injury, notes back problems, denies sciatica, notes knee/foot trouble, notes arthritis, or denies gout. When was patient's last Mammogram screening? 2020 Last Colonoscopy: none Kathy Deshpande LPN PHYSICAL EXAMINATION: General: The patient is 66 year old female, well nourished, well hydrated in no acute distress. Thepatient is oriented to time, place, and person. VITALS: Blood pressure 106/62, pulse 82, temperature 36.6 C (97.9 F), height 160 cm (5' 3 ), anootn75.2 kg (157 lb), SpO2 95 %. Body mass index is 27.81 kg/m . Head: Normal cephalic, atraumatic Eyes: pupils are equally round, sclera are clear/anicteric Neck is supple with no tracheal deviation Respiratory: Normal respiratory excursion and pattern. Abdominal exam: benign Extremities: no clubbing, cyanosis or edema. Neuro: non focal Psych: normal mood Assessment IMPRESSION: constipation PLAN: I have discussed the above with the patient. I have offered colonoscopy , possible biopsies I have explained the procedure to the patient. I have counseled the patient as to the risks of the procedure, including but not limited to: infection, bleeding, injury to any intrabdominal organs such as liver/spleen, perforation of the GI tract,inability to complete the procedure, complications of anesthesia, etc. - the patient understands. The patient was offered a [facility]/procedure [facility]. The provider and patient have discussed in detail the risk of exposure to and/or potential harm posed by the COVID-19 viruswith having a surgery/procedure at this time versus the risk of delaying the surgery/procedure. It is not possible to know either the risk of delaying the surgery or procedure or chance of getting aninfection with perfect accuracy, but a joint decision was made between the patient and the providerto proceed at this time with the scheduled surgery/procedure. I have explained to the patient the difference between IV conscious sedation and MAC anesthesia - and I have offered either, according to the patient's wishes. I have explained that with IV conscioussedation there is no anesthesia provider available and therefore there is a limitation of the amount of IV medications that can be given and that the patient may wake up in the middle of the procedure and/or experience pain/discomfort during the procedure. Further discussion was done and the patient was given the opportunity to ask questions and all questions were answered. The patient chooses IVconscious sedation Patient was counseled that if there are changes in his/her medical condition, to let the office know if surgery should proceed. If there are changes in patient's medical condition from time of this encounter to the day of the procedure that preclude anesthesia, patient may have procedure cancelled for patient's safety. The patient wishes to proceed. I have answered all questions to the patient s satisfaction and the patient has no further questions. Diagnoses: (K59.00) Constipation, unspecified constipation type (primary encounter diagnosis) (Z12.11) Screening for colon cancer (R10.13) Epigastric pain (R14.0) Bloating (R11.0) Nausea I have confirmed and edited as necessary, the PFSH and ROS obtained by others. Consultation requested by Jj Silva for an opinion regarding patient's constipation. My final recommendations will be communicated back to the requesting physician by way of shared Medical record or letter to requesting physician via US mail. Return to Clinic: The patient will be scheduled at [facility] for colonoscopy Medical Decision Making: Problems: Low: Stable chronic illness Risk: Low: Low risk from testing/treatment Medical Decision Making Level: 3 - Low Deepa Bravo MD * Deepa Bravo MD - 03/03/2022 9:00 AM EST Images from the original note were not included. HISTORY AND PHYSICAL Yamilex Maldonado 1955 REFERRING PHYSICIAN: Ashli Silva PA-C CHIEF COMPLAINT: Consult (Epigastric pain, bloating, nausea, constipation) HPI: The patient is a 66 year old female referred for endoscopy. Yamilex notes long history of constipation - having a bowel movement about once a week. This would be followed by one to two days of loose stools for bowel movements. However, lately (several months ), she has not had the loose bowel movements and has to induce bowel movements using laxatives. She does states that in the past stress would relieve the period of constipation. She denies noting any blood in her stools. She notes lower abdominal cramping pain prior to a bowel movement. She also notes increased abdominal bloating. She also notes increased frequency of urination. She also notes some urinary incontinence. The patient notes no colon cancer in immediate family. The patient has not had previous colonoscopy. PAST MEDICAL HISTORY Diagnosis Date Adjustment disorder with depressed mood Kidney stones Mass of right parotid gland 04/14/2019 FNA right parotid:Negative for malignant cells. Warthin's tumor. 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 and being monitored by PCP Type II or unspecified type diabetes mellitus without mention of complication, not stated as uncontrolled PAST SURGICAL HISTORY Procedure Laterality Date APPENDECTOMY APPENDECTOMY ARTHRP INTERPOS INTERCARPAL/METACARPAL JOINTS Right 01/23/2020 Right thumb CMC arthroplasty with LRTI, Palmaris longus CHOLECYSTECTOMY CT MAXILLOFACIAL WO/ CONT Bilateral mild ethmoid thickening bilaterally ESWL kidney stones OOPHORECTOMY PARTIAL/TOTAL UNI/BI bilaterally with hysterectomy PAST SURGICAL HISTORY OF tubal preg PAST SURGICAL HISTORY OF remote left leg/ ankle with plates and screws PAST SURGICAL HISTORY OF Left 11/29/2011 Bunion Removed PAST SURGICAL HISTORY OF Right 04/2019 parotid mass excision SINUS SURGERY HX 02/11/2018 TOT ABD HYST W/WO RMVL TUBE OVARY W/COLPURETHRXY VAGINAL HYSTERECTOMY Current Outpatient Medications Medication Sig methocarbamol (ROBAXIN) 500 mg tablet Take 1 tablet by mouth twice daily as needed. Omeprazole Magnesium (PRILOSEC OTC) 20 mg tablet Take 1 tablet by mouth daily before breakfast. 1/2hr before meal. Cholecalciferol, Vitamin D3, 50 mcg (2,000 unit) cap Take 1 capsule by mouth once daily. albuterol HFA (PROVENTIL HFA, VENTOLIN HFA) 90 mcg/actuation inhaler Inhale 2-4 Puffs as instructedevery 2 hours as needed for wheezing/shortness of breath. metFORMIN (GLUCOPHAGE) 850 mg tablet Take 1 tablet by mouth twice daily with meals. pravastatin (PRAVACHOL) 20 mg tablet Take 1 tablet by mouth daily at bedtime. Ibandronate 150 mg tablet Take 1 tablet by mouth once every month. In AM with cup of water on emptystomach. Nothing else by mouth and stay upright for 60 min. PARoxetine (PAXIL) 40 mg tablet Take 1 tablet by mouth once daily. traMADol (ULTRAM) 50 mg tablet Take 1 tablet by mouth twice daily as needed for pain. acetaminophen 650 mg CR tablet Take 650 mg by mouth every 8 hours as needed. fluticasone (FLONASE) 50 mcg/actuation nasal spray Use 2 Sprays in each nostril once daily. blood sugar diagnostic (BLOOD GLUCOSE TEST) test strip Test blood sugar(s) 2 times daily. Dx: Type 2 DM - Uncontrolled E11.65 Insulin: No polyethylene glycol 3350 (MIRALAX) 17 gram/dose powder 17gm with water or juice daily (Patient not taking: Reported on 12/20/2021) blood sugar diagnostic (BLOOD GLUCOSE TEST) test strip Test blood sugar(s) 3 times daily. Dx: Type 2 DM - Controlled E11.9 Insulin: No (Patient not taking: Reported on 12/20/2021) COMPOUNDED PRESCRIPTION Powerstep Original Full Length` (Patient not taking: Reported on 12/20/2021) ALLERGIES: Ampicillin, Avelox [Moxifloxacin Hcl], Bactrim [Sulfamethoxazole- Trimethoprim], Doxycycline, and Steroids [Corticosteroids (Glucocorticoids)] PERSONAL HISTORY: Social History Tobacco Use Smoking status: Every Day Packs/day: 1.00 Years: 44.00 Pack years: 44.00 Types: Cigarettes Smokeless tobacco: Never Vaping Use Vaping Use: Never used Substance Use Topics Alcohol use: No Drug use: No FAMILY HISTORY Adopted: Yes Problem Relation Age of Onset Diabetes Father Heart Father Hypertension Father Lipids Father Diabetes Maternal Grandmother None Sister Diabetes Daughter Cancer Sister thyroid. The review of systems data was entered by the nurse and reviewed by ks Nursing Notes: Kathy Deshpande LPN 12/20/2021 9:32 AM Signed REVIEW OF SYSTEMS: General: The patient notes fatigue, denies weight loss, denies weight gain, denies feeling hot, andnotes feelings of cold. Eyes: The patient denies glaucoma, denies eye injury/surgery, wears glasses or contacts. Ear/Nose/Throat: The patient notes allergies, denies hayfever, denies ear infections, and denies bloody noses. Cardiovascular: The patient denies chest pain, denies heart disease, denies high blood pressure,denies cardiac stent, denies prior heart attack, denies irregular heart beat, denies high cholesterol, denies poor circulation, denies heart failure, other cardiac issues, denies claudication, denies cold feet, denies peripheral arterial stent. Respiratory: The patient denies tuberculosis, denies pneumonia, denies frequent cough, denies pulmonary embolism, denies shortness of breath, and denies coughing up blood. Gastrointestinal: The patient denies difficulty swallowing, denies acid reflux, denies ulcers, denies vomiting, denies jaundice/hepatitis, denies gallbladder problems, denies black or tarry stools, denies hemorrhoids, denies bleeding from rectum, denies diverticulitis, denies constipation, denies diarrhea, denies loss of stool control, and denies hernias. Kidney/Bladder: The patient notes kidney stones, denies urine infections, and denies bloody urine. Skin: The patient denies a history of skin cancer, denies bleeding/changing moles, and denies a history of skin rash. Neurologic: The patient denies a history of epilepsy/convulsions, denies headaches, denies head/spinal injuries, and denies stroke/TIA. Psychiatric: The patient denies psychiatric medications, denies depression, and denies voices, denies substance abuse. Endocrine: The patient denies thyroid disorders, notes diabetes, and denies hormonal problems. Hematologic: The patient denies a history of bruising, denies bleeding, and denies anemia, denies blood clots. Infections: The patient denies a history of measles and mumps, denies rheumatic fever, and denies sexually transmitted diseases. Musculoskeletal: The patient denies back pain/injury, notes back problems, denies sciatica, notes knee/foot trouble, notes arthritis, or denies gout. When was patient's last Mammogram screening? 2020 Last Colonoscopy: none Kathy Deshpande LPN PHYSICAL EXAMINATION: General: The patient is 66 year old female, well nourished, well hydrated in no acute distress. Thepatient is oriented to time, place, and person. VITALS: Blood pressure 106/62, pulse 82, temperature 36.6 C (97.9 F), height 160 cm (5' 3 ), hntarg19.2 kg (157 lb), SpO2 95 %. Body mass index is 27.81 kg/m . Head: Normal cephalic, atraumatic Eyes: pupils are equally round, sclera are clear/anicteric Neck is supple with no tracheal deviation Respiratory: Normal respiratory excursion and pattern. Abdominal exam: benign Extremities: no clubbing, cyanosis or edema. Neuro: non focal Psych: normal mood Assessment IMPRESSION: constipation PLAN: I have discussed the above with the patient. I have offered colonoscopy , possible biopsies I have explained the procedure to the patient. I have counseled the patient as to the risks of the procedure, including but not limited to: infection, bleeding, injury to any intrabdominal organs such as liver/spleen, perforation of the GI tract,inability to complete the procedure, complications of anesthesia, etc. - the patient understands. The patient was offered a surgery/procedure at a [facility] facility. The provider and patient have discussed in detail the risk of exposure to and/or potential harm posed by the COVID-19 viruswith having a surgery/procedure at this time versus the risk of delaying the surgery/procedure. It is not possible to know either the risk of delaying the surgery or procedure or chance of getting aninfection with perfect accuracy, but a joint decision was made between the patient and the providerto proceed at this time with the scheduled surgery/procedure. I have explained to the patient the difference between IV conscious sedation and MAC anesthesia - and I have offered either, according to the patient's wishes. I have explained that with IV conscioussedation there is no anesthesia provider available and therefore there is a limitation of the amount of IV medications that can be given and that the patient may wake up in the middle of the procedure and/or experience pain/discomfort during the procedure. Further discussion was done and the patient was given the opportunity to ask questions and all questions were answered. The patient chooses IVconscious sedation Patient was counseled that if there are changes in his/her medical condition, to let the office know if surgery should proceed. If there are changes in patient's medical condition from time of this encounter to the day of the procedure that preclude anesthesia, patient may have procedure cancelled for patient's safety. The patient wishes to proceed. I have answered all questions to the patient s satisfaction and the patient has no further questions. Diagnoses: (K59.00) Constipation, unspecified constipation type (primary encounter diagnosis) (Z12.11) Screening for colon cancer (R10.13) Epigastric pain (R14.0) Bloating (R11.0) Nausea I have confirmed and edited as necessary, the PFSH and ROS obtained by others. Consultation requested by Jj Silva for an opinion regarding patient's constipation. My final recommendations will be communicated back to the requesting physician by way of shared Medical record or letter to requesting physician via US mail. Return to Clinic: The patient will be scheduled at [facility] for colonoscopy Medical Decision Making: Problems: Low: Stable chronic illness Risk: Low: Low risk from testing/treatment Medical Decision Making Level: 3 - Low Deepa Bravo MD [facility] Instructions* Patient Instructions* Ashli Silva PA-C - 02/13/2022 9:37 AM EST For symptomatic constipation that doesn't resolve with fiber, water, exercise, Miralax, and or lactulose; Magnesium Citrate 1/2 bottle now and repeat in 8h if no BM If no BM over night, Dulcolax suppository, Sennekot, or Pericolace If no BM in 8 hours: Fleet's enema. If no BM and unconfortable call me or go to ED. documented [facility] History of Present illness Narrative* Ashli Silva PA-C - 02/13/2022 9:20 AM EST 66 year old female with c/o here for follow up Epigastric pain (primary encounter diagnosis) Chronic constipation Current medication: Miralax 17gm daily with 8oz H2O Omeprazole 20mg twice a day AC Current symptoms: none. Last Mg level if on PPI chronically: none. Heartburn is controlled: epigastric pain has resolved Dysphagia: No. Bloody or black stools: No. Bowel changes: No. Last EGD and/or colonoscopy: rescheduled. LBM: Yesterday morning after eating hot sausage. In no pain. Moderate persistent asthma, uncomplicated Tobacco abuse Batch Attendant: none. Interval history: no issues. Current medications: Albuterol HFA 2-4 puffs Worsening shortness of breath: no, off and on. Cough: Yes, chronic pattern, non-productive Wheezing: Yes. Smoking: Yes. Compliant with medications: Yes. Using rescue inhaler: a few times in last 2 weeks. . Hyperlipidemia with target ldl less than 70 Current medication Pravastatin 20mg daily HS Taking medication consistently Yes Observing low cholesterol high fiber diet Yes Muscle aches No Stomach complaints/ diarrhea No Last 2 Lipids: Component Latest Ref Rng & Units 10/12/2020 09/05/2021 Cholesterol, Total <200 mg/dL 171 190 Triglyceride <150 mg/dL 130 127 HDL Cholesterol >39 mg/dL 54 58 LDL Cholesterol <100 mg/dL 91 107 (H) Non HDL Cholesterol <130 mg/dL 117 132 (H) Fasting Time hrs 10 8 VLDL Cholesterol <30 mg/dL 26 25 TC:HDL Ratio <5.10 3.17 3.28 LDL:HDL Ratio <2.54 1.69 1.84 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 manifestations (hcc) Current medications: Metformin 850mg twice a day with meals Taking medication as directed consistently? Yes Medication side effects: known Medical Issues / Complications: hypertension and hyperlipidemia Checking blood sugars at home? No. Watching diet? No Physical Activity: Sedentary Hypoglycemic spells? No Any visual disturbance? No Chest pain? No New numbness, tingling or loss of sensation? No Any recent foot problems, sores or rashes? No Any recent or sudden weight loss? No Change in urination? No. If yes: Any recent illness? No Last eye exam: due. Needs to have cataracts removed Last foot exam: up to date. HBA1C: Hemoglobin A1C (%) Date Value 09/12/2021 6.4 10/12/2020 6.2 08/14/2019 6.4 ) CMP: Glucose 117 09/05/2021 BUN 22 09/05/2021 Creatinine 1.03 09/05/2021 Sodium 140 09/05/2021 Potassium 4.0 09/05/2021 Chloride 105 09/05/2021 CO2 24 09/05/2021 Protein, Total 6.4 09/05/2021 Albumin 4.0 09/05/2021 Calcium 8.8 09/05/2021 Alkaline Phosphatase 67 09/05/2021 Bilirubin, Total 0.3 09/05/2021 AST 16 09/05/2021 ALT 14 09/05/2021 Last 2 Encounter Wt Readings: Date: Wt: 01/05/2022 71.2 kg (157 lb) 12/26/2021 71.2 kg (157 lb) Stage 3a chronic kidney disease (hcc) Component Latest Ref Rng & Units 10/12/2020 09/05/2021 BUN 7 - 21 mg/dL 26 (H) 22 (H) Creatinine 0.58 - 0.96 mg/dL 1.08 (H) 1.03 (H) Component Latest Ref Rng & Units 10/12/2020 09/05/2021 eGFR-All Other Races . 51 eGFR >=60 mL/min/1.73m 60 Essential tremor About the same. Spinal stenosis of lumbar region without neurogenic claudication Chronic bilateral low back pain without sciatica Fibromyalgia Pain management: Dr. Ruiz, Caitlyn Parr PA-C Current medications: Acetaminophen 650mg CR every 8h Robaxin 500mg twice a day prn Tramadol 50mg twice a day Always in pain but manages with current medications. Osteoporosis: Current medications: Ibandronate 150mg daily once a month AC No issues currently following Depression with anxiety Current medications: Paxil 40mg daily Mood same usual Spends a lot of time Feels some anxiety and depression. Current ly doing okay . Gets lonely at times. HISTORIES FAMILY HISTORY Adopted: Yes Problem Relation Age of Onset Diabetes Father Heart Father Hypertension Father Lipids Father Diabetes Maternal Grandmother None Sister Diabetes Daughter Cancer Sister thyroid. PAST MEDICAL HISTORY Diagnosis Date Adjustment disorder with depressed mood Kidney stones Mass of right parotid gland 04/14/2019 FNA right parotid:Negative for malignant cells. Warthin's tumor. 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 and being monitored by PCP Type II or unspecified type diabetes mellitus without mention of complication, not stated as uncontrolled PAST SURGICAL HISTORY Procedure Laterality Date APPENDECTOMY APPENDECTOMY ARTHRP INTERPOS INTERCARPAL/METACARPAL JOINTS Right 01/23/2020 Right thumb CMC arthroplasty with LRTI, Palmaris longus CHOLECYSTECTOMY CT MAXILLOFACIAL WO/ CONT Bilateral mild ethmoid thickening bilaterally ESWL kidney stones OOPHORECTOMY PARTIAL/TOTAL UNI/BI bilaterally with hysterectomy PAST SURGICAL HISTORY OF tubal preg PAST SURGICAL HISTORY OF remote left leg/ ankle with plates and screws PAST SURGICAL HISTORY OF Left 11/29/2011 Bunion Removed PAST SURGICAL HISTORY OF Right 04/2019 parotid mass excision SINUS SURGERY HX 02/11/2018 TOT ABD HYST W/WO RMVL TUBE OVARY W/COLPURETHRXY VAGINAL HYSTERECTOMY Social History Tobacco Use Smoking status: Every Day Packs/day: 1.00 Years: 44.00 Pack years: 44.00 Types: Cigarettes Smokeless tobacco: Never Vaping Use Vaping Use: Never used Substance Use Topics Alcohol use: No Drug use: No ACTIVE PROBLEM LIST Well Controlled Type 2 [...] Essential Tremor Pyogenic Inflammation of Bone (Hcc) Urge Incontinence History of Thyroid Disease Stage 3a Chronic Kidney Disease (Hcc) Moderate Persistent Asthma, Uncomplicated Fracture of Distal End of Right Radius Chronic Rhinitis Current Outpatient Medications Medication Sig Dispense Refill PARoxetine (PAXIL) 40 mg tablet Take 1 tablet by mouth once daily. 30 tablet 5 fluticasone (FLONASE) 50 mcg/actuation nasal spray Use 2 Sprays in each nostril once daily. 1 Each 5 albuterol HFA (PROVENTIL HFA, VENTOLIN HFA) 90 mcg/actuation inhaler Inhale 2-4 Puffs as instructedevery 2 hours as needed for wheezing/shortness of breath. 18 g 1 lactulose (DUPHALAC, CONSTULOSE) 10 g/15 mL soln Take 15 mL by mouth once daily. 240 mL 2 omeprazole (PRILOSEC) 20 mg capsule Take 1 capsule by mouth twice daily before meals. 1/2 hr beforemeal. 60 capsule 2 methocarbamol (ROBAXIN) 500 mg tablet Take 1 tablet by mouth twice daily as needed. 60 tablet 2 Omeprazole Magnesium (PRILOSEC OTC) 20 mg tablet Take 1 tablet by mouth daily before breakfast. 1/2hr before meal. 30 tablet 5 Cholecalciferol, Vitamin D3, 50 mcg (2,000 unit) cap Take 1 capsule by mouth once daily. 90 capsule3 metFORMIN (GLUCOPHAGE) 850 mg tablet Take 1 tablet by mouth twice daily with meals. 60 tablet 11 pravastatin (PRAVACHOL) 20 mg tablet Take 1 tablet by mouth daily at bedtime. 90 tablet 3 Ibandronate 150 mg tablet Take 1 tablet by mouth once every month. In AM with cup of water on emptystomach. Nothing else by mouth and stay upright for 60 min. 3 tablet 4 polyethylene glycol 3350 (MIRALAX) 17 gram/dose powder 17gm with water or juice daily (Patient not taking: Reported on 12/20/2021) 225 g 11 traMADol (ULTRAM) 50 mg tablet Take 1 tablet by mouth twice daily as needed for pain. (Patient not taking: Reported on 12/26/2021) acetaminophen 650 mg CR tablet Take 650 mg by mouth every 8 hours as needed. blood sugar diagnostic (BLOOD GLUCOSE TEST) test strip Test blood sugar(s) 2 times daily. Dx: Type 2 DM - Uncontrolled E11.65 Insulin: No 200 Strip 3 COMPOUNDED PRESCRIPTION Powerstep Original Full Length` (Patient not taking: Reported on 12/20/2021)1 Each 0 No current facility-administered medications for this visit. SPIROMETRY Never done LUNG CANCER SCREENING Never done DILATED RETINAL EXAM due on 10/06/2021 INFLUENZA(1) due on 11/24/2021 MAMMOGRAM due on 02/24/2022 EXAM: BP 110/64 Pulse 84 Resp 16 Wt 70.3 kg (155 lb) SpO2 98% BMI 27.46 kg/m Pleasant adult woman in no acute distress. Alert and oriented all spheres. Normal affect and cognition. Speech normal. No deficits to learning or comprehension. Skin warm, dry, pink to lips and nailbeds. Normal turgor. Respirations regular and unlabored. Chest is normal shape. Lungs are clear to all lopez with good air exchange through out. HRRR without murmur or gallop. No lifts, heaves, or rubs. Abdomen: active bowel sounds throughout, soft, mildly tender epigastric with increased discomfort on flexion upper abdominal muscles. , no masses or organomegaly. No CVAT. Extrem: no clubbing or cyanosis. Edema: none. Extremities are warm and pink with prompt capillary refill. ASSESSMENT/PLAN: 1. Epigastric pain - ICD9: 789.06, ICD10: R10.13 (primary diagnosis) Improved on omeprazole increase. Discussed ibandronate change- started 11/08/2021 after theabdominal difficulties stated but may consider holding. - Disc ussed lifestyle modifications including losing weight, limiting caffeine, no meals three hours before sleep, and head of bed elevation 2. Chronic constipation - ICD9: 564.00, ICD10: K59.09 See d/c instructions 3. Moderate persistent asthma, uncomplicated - ICD9: 493.90, ICD10: J45.40 Mild intermittent Asthma stable - Continue current meds - Avoidance of triggers recommended 4. Tobacco abuse - ICD9: 305.1, ICD10: Z72.0 - Cessation encouraged. - Physiologic and physical aspects of tobacco addiction as well as strategies for quitting were discussed. - Counseling was given focusing on the harmful effects of this addiction especially given the patient's medical condition(s) which will be worsened because of the chemicals in tobacco. 5. Hyperlipidemia with target LDL less than 70 - ICD9: 272.4, ICD10: E78.5 - good control - Continue current medication. 6. 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 manifestations (HCC) - ICD9: 250.60, ICD10: E11.49 Controlled. - Continue current medications 7. Stage 3a chronic kidney disease (HCC) - ICD9: 585.3, ICD10: N18.31 - eGFR: Stable - Counseled on avoiding regular use of NSAIDs, adequate hydration, potential risk of IV dye 8. Essential tremor - ICD9: 333.1, ICD10: G25.0 stable 9. Spinal stenosis of lumbar region without neurogenic claudication - ICD9: 724.02, ICD10: M48.061 Chronic back pain: seeing pain managment, continue meds. 10. Chronic bilateral low back pain without sciatica - ICD9: 724.2, 338.29, ICD10: M54.50, G89.29 As above 11. Fibromyalgia - ICD9: 729.1, ICD10: M79.7 Continue meds 12. Depression with anxiety - ICD9: 300.4, ICD10: F41.8 Stable; continue meds 13. Need for influenza vaccination - ICD9: V04.81, ICD10: Z23 - INFLUENZA SEASONAL QUADRIVALENT HIGH DOSE AGE 65+ M Wilbert Silva PA-C [facility] History of Present illness Narrative* Yumiko Gross, SYSTEM SUPPORT ADMINISTRATOR.POLICY CHANGE CLERK - 02/08/2022 1:12 PM EST No show for SDM visit. Yumiko Gross APRN.POLICY CHANGE CLERK documented [facility]22 Miscellaneous Notes* Telephone Encounter - Dejah Boss LPN - 02/01/2022 12:39 PM EST Completed forms faxed as requested. * Telephone Encounter - Ashli Silva PA-C - 01/31/2022 5:09 PM EST Signed + returned Jj Silva PA-C * Telephone Encounter - Bella Barney LPN - 01/31/2022 3:28 PM EST Incontinence items order on providers desk * Telephone Encounter - Bella Barney LPN - 01/31/2022 1:23 PM EST Faxed received from [facility] requesting DME/HME item of Incontinence supplies. RX requested. RX with any relevant face to face chart notes will need faxed to [phone] attn Venu Platt. Form on nurses desk. Please review and advise. documented in [facility]22 Miscellaneous Notes* Telephone Encounter - Caitlyn Mathews Ma - 01/30/2022 1:08 PM EST Forms were faxed * Telephone Encounter - Ashli Silva PA-C - 01/30/2022 12:35 PM EST Not sure I have seen this form as of yet. Thanks, Jj Silva PA-C * Telephone Encounter - Marcus Guardado LPN - 01/24/2022 4:28 PM EDT Patient has been identified by name and date of : Yes Type of form: HH Certification and POC Form received via: Fax When form is completed, fax form to fax number provided. Form has been forwarded to: Provider's mailbox. Provider name: EDGAROD Talley LPN documented in [facility]22 Miscellaneous Notes* Telephone Encounter - Caitlyn Mathews Ma - 01/20/2022 11:11 AM EDT Patient was notified of provider message. Caitlyn Mathews Ma * Telephone Encounter - Ashli Silva PA-C - 01/20/2022 6:29 AM EDT Let me know if she doesn't have a BM in the next few days. ThanksJj PA-C * Telephone Encounter - Kailyn Miramontes LPN - 01/19/2022 3:09 PM EDT Patient calling she had taken her 4 ducolax tablets yesterday to start her prep for colonoscopy. Patient said she only had few hours of passing stool and just stopped had no further stools. Patient did not understand why bowels just stopped. She said the colonoscopy had to be cancelled due to her daughter being COVID positive and she has sinus infection symptoms herself. She had to reschedule into February. documented in [facility]22 Miscellaneous Notes* Telephone Encounter - Josette Sharp - 01/19/2022 10:25 AM EDT Attempted to reach out to patient to reschedule colonoscopy with Dr. Bravo at the [facility]. No voicemail set up. Procedure cancelled Josette Sharp Metal Bed Assembler * Telephone Encounter - Saida Lewis LPN - 01/19/2022 9:21 AM EDT Patient called. Verified name and date of . Patient would like to reschedule procedure scheduled for tomorrow. Patient reports having sinus infection and her daughter has tested positive for Covid. Saida Lewis LPN documented [facility]22 Miscellaneous Notes* Telephone Encounter - Bella Barney LPN - 01/12/2022 11:30 AM EDT Patient has been identified by name and date of : Yes Patient phones for refill(s): Requested Prescriptions Pending Prescriptions Disp Refills PARoxetine (PAXIL) 40 mg tablet 30 tablet 5 Sig: Take 1 tablet by mouth once daily. Date of last office visit in primary care: 01/05/22 Please advise. Thank you. Bella Barney LPN documented in this encounter[facility]10-18-2022 Miscellaneous Notes* Telephone Encounter - Breann Mace LPN - 01/10/2022 1:39 PM EDT Images from the original note were not included. APPROVED. * Telephone Encounter - Breann Mace LPN - 01/10/2022 1:31 PM EDT PA for Omeprazole sent via [employer]. Awaiting response. Kiah Mace LPN documented in this encounter[facility]10-[facility]22 History of Present illness Narrative* Ashli Silva PA-C - 01/05/2022 2:20 PM EDT 66 year old female with c/o recurrent abdominal pain from 09/16/2021 phone message. Persistent upper abdominal and suprapubic area. Appetite is good always want to eat No nausea or vomiting. Only one stool a week, only after taking Dulcolax pills. Did Miralax daily faithfully daily with full glass of water for a good three weeks with out a change. Paces in house for exercise, also has a floor pedal she uses through the day at least 5 minute every hour. Omeprazole helps with gas but starts to get worse in afternoon. Weight is stable. Stopped tramadol due to constipation. Arthritis Tylenol one tab a few times Stopped eating cheese. 12/20/[address] Deepa Bravo: colonoscopy recommended for constipation etiology. 01/20/2022 colonoscopy scheduled. 12/12/2021 requested GI consult for epigastric pain, bloating 12/02/2021 Gastric emptying study negative. Started omeprazole 20mg daily AC From patient message: Jj I will start taking the medicine but there has got to be something wrong when I eat a meal the top of my stomach feels like it s pushing on my heart in my lungs and it gets real warm inside there and I have gas really bad when I eat could it be something else thanks Jj 09/19/2021 my notes: Across lower abdomen with a lot of pressure and in lower back. At worst 7/10, at least 5/10, no days without pain. Inhibits sitting and sewing. Nauseated without vomiting, appetite lower after back injection which helped tailbone a little bit . No vomiting, acid reflux. No weight loss. Feels tight. Sits on donut cushion which seems to help. Urination: I don't pee a lot . Feels should be going more than she is. Once in awhile urge incontinence. Always have pressure down there . S/p DIXON, BSO. Bowel once a week if I'm malvin . Eats granola bars for fiber. Fell in bedroom 2 months ago and still has some left lateral hip pain. Takes tramadol for pain as directed. Taking tylenol once in awhile. - UA micro: 1+ protein, otherwise WNL - Urine culture neg - Started Miralax: took over three weeks without improvement. - Consult gastro: not scheduled HISTORIES FAMILY HISTORY Adopted: Yes Problem Relation Age of Onset Diabetes Father Heart Father Hypertension Father Lipids Father Diabetes Maternal Grandmother None Sister Diabetes Daughter Cancer Sister thyroid. PAST MEDICAL HISTORY Diagnosis Date Adjustment disorder with depressed mood Kidney stones Mass of right parotid gland 04/14/2019 FNA right parotid:Negative for malignant cells. Warthin's tumor. 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 and being monitored by PCP Type II or unspecified type diabetes mellitus without mention of complication, not stated as uncontrolled PAST SURGICAL HISTORY Procedure Laterality Date APPENDECTOMY APPENDECTOMY ARTHRP INTERPOS INTERCARPAL/METACARPAL JOINTS Right 01/23/2020 Right thumb CMC arthroplasty with LRTI, Palmaris longus CHOLECYSTECTOMY CT MAXILLOFACIAL WO/ CONT Bilateral mild ethmoid thickening bilaterally ESWL kidney stones OOPHORECTOMY PARTIAL/TOTAL UNI/BI bilaterally with hysterectomy PAST SURGICAL HISTORY OF tubal preg PAST SURGICAL HISTORY OF remote left leg/ ankle with plates and screws PAST SURGICAL HISTORY OF Left 11/29/2011 Bunion Removed PAST SURGICAL HISTORY OF Right 04/2019 parotid mass excision SINUS SURGERY HX 02/11/2018 TOT ABD HYST W/WO RMVL TUBE OVARY W/COLPURETHRXY VAGINAL HYSTERECTOMY Social History Tobacco Use Smoking status: Every Day Packs/day: 1.00 Years: 44.00 Pack years: 44.00 Types: Cigarettes Smokeless tobacco: Never Vaping Use Vaping Use: Never used Substance Use Topics Alcohol use: No Drug use: No ACTIVE PROBLEM LIST Well Controlled Type 2 [...] Essential Tremor Pyogenic Inflammation of Bone (Hcc) Urge Incontinence History of Thyroid Disease Stage 3a Chronic Kidney Disease (Hcc) Moderate Persistent Asthma, Uncomplicated Fracture of Distal End of Right Radius Chronic Rhinitis Current Outpatient Medications Medication Sig Dispense Refill methocarbamol (ROBAXIN) 500 mg tablet Take 1 tablet by mouth twice daily as needed. 60 tablet 2 Omeprazole Magnesium (PRILOSEC OTC) 20 mg tablet Take 1 tablet by mouth daily before breakfast. 1/2hr before meal. 30 tablet 5 Cholecalciferol, Vitamin D3, 50 mcg (2,000 unit) cap Take 1 capsule by mouth once daily. 90 capsule3 albuterol HFA (PROVENTIL HFA, VENTOLIN HFA) 90 mcg/actuation inhaler Inhale 2-4 Puffs as instructedevery 2 hours as needed for wheezing/shortness of breath. 1 Inhaler 11 metFORMIN (GLUCOPHAGE) 850 mg tablet Take 1 tablet by mouth twice daily with meals. 60 tablet 11 pravastatin (PRAVACHOL) 20 mg tablet Take 1 tablet by mouth daily at bedtime. 90 tablet 3 Ibandronate 150 mg tablet Take 1 tablet by mouth once every month. In AM with cup of water on emptystomach. Nothing else by mouth and stay upright for 60 min. 3 tablet 4 polyethylene glycol 3350 (MIRALAX) 17 gram/dose powder 17gm with water or juice daily (Patient not taking: Reported on 12/20/2021) 225 g 11 blood sugar diagnostic (BLOOD GLUCOSE TEST) test strip Test blood sugar(s) 3 times daily. Dx: Type 2 DM - Controlled E11.9 Insulin: No (Patient not taking: Reported on 12/20/2021) 50 Strip 11 PARoxetine (PAXIL) 40 mg tablet Take 1 tablet by mouth once daily. 30 tablet 5 traMADol (ULTRAM) 50 mg tablet Take 1 tablet by mouth twice daily as needed for pain. (Patient not taking: Reported on 12/26/2021) acetaminophen 650 mg CR tablet Take 650 mg by mouth every 8 hours as needed. fluticasone (FLONASE) 50 mcg/actuation nasal spray Use 2 Sprays in each nostril once daily. 1 Each 5 blood sugar diagnostic (BLOOD GLUCOSE TEST) test strip Test blood sugar(s) 2 times daily. Dx: Type 2 DM - Uncontrolled E11.65 Insulin: No 200 Strip 3 COMPOUNDED PRESCRIPTION Powerstep Original Full Length` (Patient not taking: Reported on 12/20/2021)1 Each 0 No current facility-administered medications for this visit. SPIROMETRY Never done LUNG CANCER SCREENING Never done DILATED RETINAL EXAM due on 10/06/2021 INFLUENZA(1) due on 11/24/2021 MAMMOGRAM due on 02/24/2022 EXAM: BP 118/60 Pulse 71 Resp 16 Wt 71.2 kg (157 lb) SpO2 97% BMI 27.81 kg/m Pleasant adult woman in no acute distress. Alert and oriented all spheres. Normal affect and cognition. Speech normal. No deficits to learning or comprehension. Skin warm, dry, pink to lips and nailbeds. Normal turgor. Respirations regular and unlabored. HEENT: NCAT. No scleral icterus or conjunctival injection. TM's clear. Nose and oropharynx free from injection or lesion. Oral membranes moist and pink. No cervical lymph nodes. Thyroid non-tender, no masses, or enlargement. Chest is normal shape. Lungs are clear to all lopez with good air exchange through out. HRRR without murmur or gallop. No lifts, heaves, or rubs. Abdomen: active bowel sounds throughout, soft, vague tenderness epigastric kvng pelvis. no masses ororganomegaly. No CVAT. Chaperoned rectal exam: lax tone and very little movement on rectal clenching. Stool neg on Hemoccult with QC checked. Extrem: no clubbing or cyanosis. Edema: none. Extremities are warm and pink with prompt capillary refill. Acute abd series: no abnormal gas patterns. ASSESSMENT/PLAN: 1. Chronic constipation - ICD9: 564.00, ICD10: K59.09 (primary diagnosis) Stop stimulant laxatives. Push fiber, water, lac tulose if needed. - LACTULOSE 10 G/15 ML ORAL SOLN (120ML) - HEMOCCULT SINGLE B/O - XR CHEST 1V FRONTAL - XR ABDOMEN 2V ROUTINE SUPINE W UPRIGHT/DECUB/CTL 2. Epigastric pain - ICD9: 789.06, ICD10: R10.13 Increase omeprazole to 20mg bid ac - OMEPRAZOLE 20 MG CAPSULE,DELAYED RELEASE 3. Pelvic pain - ICD9: [id number], ICD10: R10.2 - HEMOCCULT SINGLE B/O - XR CHEST 1V FRONTAL - XR ABDOMEN 2V ROUTINE SUPINE W UPRIGHT/DECUB/CTL 4. Moderate persistent asthma, uncomplicated - ICD9: 493.90, ICD10: J45.40 Refill Well controlled - ALBUTEROL SULFATE HFA 90 MCG/ACTUATION AEROSOL INHALER Ashli Silva PA-C [facility] Miscellaneous Notes* Telephone Encounter - Dejah Boss LPN - 01/05/2022 2:12 PM EDT Patient has been identified by name and date of : Yes Requested Prescriptions Pending Prescriptions Disp Refills fluticasone (FLONASE) 50 mcg/actuation nasal spray 1 Each 5 Sig: Use 2 Sprays in each nostril once daily. RX INSTRUCTIONS: Patient aware RX will be sent to pharmacy. No need to notify patient. Dejah Boss LPN [facility] History of Present illness Narrative* Marcus Barnes MD - 12/26/2021 9:05 AM EDT Marcus Barnes MD Department of Orthopaedics Orthopaedics [address] [facility] [address] Dept: [phone] Dept December 26, 2021 CHIEF COMPLAINT: Established Patient of the Right Knee and Right Knee Pain (Last seen 03/28/21 Right distal radius fracture/) HPI Patient states she is having medial right knee pain. Her knee cap is painful as well. She is havingdifficulty going up and down steps. She has to do steps one at a time. No specific injury. Taking Tylenol arthritis for the pain and is not helping. X-rays done today. AMB ROOMING INTAKE FLOWSHEET DATA Risk Screening Do you have concerns about personal safety or safety in the home?: No Pain Pain Level: 4 Pain Location: Knee-Right Description: Aching Duration Amount of Time: 1 Duration Units: Months Frequency: Continuous Intervention/Comfort measure: Medication ASSESSMENT: M17.11 Primary osteoarthritis of right knee (primary encounter diagnosis) M25.561 Acute pain of right knee S76.312A Hamstring strain, left, initial encounter PLAN: We'll try a topical NSAID and a few PT treatments. Cortisone injection for the knee down the line. Ms. Yamilex Maldonado was advised as to contrast therapies and/or to take analgesics/anti-inflammatories as needed and all contraindications were reviewed. OBJECTIVE: Ms. Yamilex Maldonado is a pleasant 66 year old in no apparent distress. Gen:There were no vitals taken for this visit. nl development, non obese, no deformities ENT: Normocephalic, normal hearing, moist mucosa CV: Pulses:DP/PT= 2+ and symmetric, capillary refill < 2 secs, no peripheral edema/varicosities Skin: no rash, bruising or lesions. Good turgor. Psych: cooperative and appropriate, alert and oriented x 3, good mood and affect. Musculoskeletal: Patient walks with very mild antalgia, normal station. Hip motion without pain. Knee without effusion. Patella tracks normally. There is no patellar crepitance. No pain along the medial or lateral facets. Range of motion 0-125 degrees. Mild medial, without lateral joint line pain on palpation. She does have quite exquisite tenderness on the hamstring tendons as they come around the medial side but not quite at the PES. ligamentous exam stable on varus and valgus stress testing at 0 and 30 degrees. Karly's examination is negative. Posterior drawer is negative. Negative McMurrays, without palpable click. Extremity is warm and well perfused. Sensation is grossly intact to light touch, subject ively. Imaging: IMPRESSION: Minimal joint space narrowing with no acute process seen. Cavalry Officer: TWIN Transcribe Date/Time: Dec 26 2021 9:28A Dictated by : CHANTEL FALCON MD This examination was interpreted and the report reviewed and electronically signed by: CHANTEL FALCON MD on Dec 26 2021 9:54AM EST Results-Findings * * *Final Report* * * DATE OF EXAM: Dec 26 2021 8:27AM WRX [id number] - XR KNEE 4V AP/PA BOTH+LAT/WILDER RT / PROCEDURE REASON: Right knee pain, unspecified chronicity * * * * Physician Interpretation * * * * History: Right knee pain FINDINGS: AP, PA, and merchant views of both knees, and a lateral view of the right knee have been obtained. The bones appear osteopenic. There is no acute fracture. There is mild medial femoral tibial joint space narrowing bilaterally. Mild lateral femoral patellar narrowing. No significant bony changes. No joint effusion. Supporting Subjective Information Below: Past Surgical History: PAST SURGICAL HISTORY Procedure Laterality Date APPENDECTOMY APPENDECTOMY ARTHRP INTERPOS INTERCARPAL/METACARPAL JOINTS Right 01/23/2020 Right thumb CMC arthroplasty with LRTI, Palmaris longus CHOLECYSTECTOMY CT MAXILLOFACIAL WO/ CONT Bilateral mild ethmoid thickening bilaterally ESWL kidney stones OOPHORECTOMY PARTIAL/TOTAL UNI/BI bilaterally with hysterectomy PAST SURGICAL HISTORY OF tubal preg PAST SURGICAL HISTORY OF remote left leg/ ankle with plates and screws PAST SURGICAL HISTORY OF Left 11/29/2011 Bunion Removed PAST SURGICAL HISTORY OF Right 04/2019 parotid mass excision SINUS SURGERY HX 02/11/2018 TOT ABD HYST W/WO RMVL TUBE OVARY W/COLPURETHRXY VAGINAL HYSTERECTOMY Medications: Current Outpatient Medications Medication Sig methocarbamol (ROBAXIN) 500 mg tablet Take 1 tablet by mouth twice daily as needed. Omeprazole Magnesium (PRILOSEC OTC) 20 mg tablet Take 1 tablet by mouth daily before breakfast. 1/2hr before meal. Cholecalciferol, Vitamin D3, 50 mcg (2,000 unit) cap Take 1 capsule by mouth once daily. albuterol HFA (PROVENTIL HFA, VENTOLIN HFA) 90 mcg/actuation inhaler Inhale 2-4 Puffs as instructedevery 2 hours as needed for wheezing/shortness of breath. metFORMIN (GLUCOPHAGE) 850 mg tablet Take 1 tablet by mouth twice daily with meals. pravastatin (PRAVACHOL) 20 mg tablet Take 1 tablet by mouth daily at bedtime. Ibandronate 150 mg tablet Take 1 tablet by mouth once every month. In AM with cup of water on emptystomach. Nothing else by mouth and stay upright for 60 min. PARoxetine (PAXIL) 40 mg tablet Take 1 tablet by mouth once daily. acetaminophen 650 mg CR tablet Take 650 mg by mouth every 8 hours as needed. fluticasone (FLONASE) 50 mcg/actuation nasal spray Use 2 Sprays in each nostril once daily. blood sugar diagnostic (BLOOD GLUCOSE TEST) test strip Test blood sugar(s) 2 times daily. Dx: Type 2 DM - Uncontrolled E11.65 Insulin: No polyethylene glycol 3350 (MIRALAX) 17 gram/dose powder 17gm with water or juice daily (Patient not taking: Reported on 12/20/2021) blood sugar diagnostic (BLOOD GLUCOSE TEST) test strip Test blood sugar(s) 3 times daily. Dx: Type 2 DM - Controlled E11.9 Insulin: No (Patient not taking: Reported on 12/20/2021) traMADol (ULTRAM) 50 mg tablet Take 1 tablet by mouth twice daily as needed for pain. (Patient not taking: Reported on 12/26/2021) COMPOUNDED PRESCRIPTION Powerstep Original Full Length` (Patient not taking: Reported on 12/20/2021) No current facility-administered medications for this visit. Allergies: Ampicillin, Avelox [Moxifloxacin Hcl], Bactrim [Sulfamethoxazole- Trimethoprim], Doxycycline, and Steroids [Corticosteroids (Glucocorticoids)] ROS: General (negative for fatigue, malaise, weight loss/gain) HEENT (negative for headache, earache, recent vision changes, sinus pain, sore throat) Respiratory (no recent shortness of breath, hemoptysis) CV (negative for chest tightness, palpitations) Musculoskeletal (see HPI) Psych (no depression, anxiety) Marcus Barnes MD [facility] History of Present illness Narrative* Deepa Bravo MD - 12/21/2021 7:24 AM EDT HISTORY AND PHYSICAL Yamilex Maldonado 1955 REFERRING PHYSICIAN: Ashli Silva PA-C CHIEF COMPLAINT: Consult (Epigastric pain, bloating, nausea, constipation) HPI: The patient is a 66 year old female referred for endoscopy. Yamilex notes long history of constipation - having a bowel movement about once a week. This would be followed by one to two days of loose stools for bowel movements. However, lately (several months ), she has not had the loose bowel movements and has to induce bowel movements using laxatives. She does states that in the past stress would relieve the period of constipation. She denies noting any blood in her stools. She notes lower abdominal cramping pain prior to a bowel movement. She also notes increased abdominal bloating. She also notes increased frequency of urination. She also notes some urinary incontinence. The patient notes no colon cancer in immediate family. The patient has not had previous colonoscopy. PAST MEDICAL HISTORY Diagnosis Date Adjustment disorder with depressed mood Kidney stones Mass of right parotid gland 04/14/2019 FNA right parotid:Negative for malignant cells. Warthin's tumor. 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 and being monitored by PCP Type II or unspecified type diabetes mellitus without mention of complication, not stated as uncontrolled PAST SURGICAL HISTORY Procedure Laterality Date APPENDECTOMY APPENDECTOMY ARTHRP INTERPOS INTERCARPAL/METACARPAL JOINTS Right 01/23/2020 Right thumb CMC arthroplasty with LRTI, Palmaris longus CHOLECYSTECTOMY CT MAXILLOFACIAL WO/ CONT Bilateral mild ethmoid thickening bilaterally ESWL kidney stones OOPHORECTOMY PARTIAL/TOTAL UNI/BI bilaterally with hysterectomy PAST SURGICAL HISTORY OF tubal preg PAST SURGICAL HISTORY OF remote left leg/ ankle with plates and screws PAST SURGICAL HISTORY OF Left 11/29/2011 Bunion Removed PAST SURGICAL HISTORY OF Right 04/2019 parotid mass excision SINUS SURGERY HX 02/11/2018 TOT ABD HYST W/WO RMVL TUBE OVARY W/COLPURETHRXY VAGINAL HYSTERECTOMY Current Outpatient Medications Medication Sig methocarbamol (ROBAXIN) 500 mg tablet Take 1 tablet by mouth twice daily as needed. Omeprazole Magnesium (PRILOSEC OTC) 20 mg tablet Take 1 tablet by mouth daily before breakfast. 1/2hr before meal. Cholecalciferol, Vitamin D3, 50 mcg (2,000 unit) cap Take 1 capsule by mouth once daily. albuterol HFA (PROVENTIL HFA, VENTOLIN HFA) 90 mcg/actuation inhaler Inhale 2-4 Puffs as instructedevery 2 hours as needed for wheezing/shortness of breath. metFORMIN (GLUCOPHAGE) 850 mg tablet Take 1 tablet by mouth twice daily with meals. pravastatin (PRAVACHOL) 20 mg tablet Take 1 tablet by mouth daily at bedtime. Ibandronate 150 mg tablet Take 1 tablet by mouth once every month. In AM with cup of water on emptystomach. Nothing else by mouth and stay upright for 60 min. PARoxetine (PAXIL) 40 mg tablet Take 1 tablet by mouth once daily. traMADol (ULTRAM) 50 mg tablet Take 1 tablet by mouth twice daily as needed for pain. acetaminophen 650 mg CR tablet Take 650 mg by mouth every 8 hours as needed. fluticasone (FLONASE) 50 mcg/actuation nasal spray Use 2 Sprays in each nostril once daily. blood sugar diagnostic (BLOOD GLUCOSE TEST) test strip Test blood sugar(s) 2 times daily. Dx: Type 2 DM - Uncontrolled E11.65 Insulin: No polyethylene glycol 3350 (MIRALAX) 17 gram/dose powder 17gm with water or juice daily (Patient not taking: Reported on 12/20/2021) blood sugar diagnostic (BLOOD GLUCOSE TEST) test strip Test blood sugar(s) 3 times daily. Dx: Type 2 DM - Controlled E11.9 Insulin: No (Patient not taking: Reported on 12/20/2021) COMPOUNDED PRESCRIPTION Powerstep Original Full Length` (Patient not taking: Reported on 12/20/2021) ALLERGIES: Ampicillin, Avelox [Moxifloxacin Hcl], Bactrim [Sulfamethoxazole- Trimethoprim], Doxycycline, and Steroids [Corticosteroids (Glucocorticoids)] PERSONAL HISTORY: Social History Tobacco Use Smoking status: Every Day Packs/day: 1.00 Years: 44.00 Pack years: 44.00 Types: Cigarettes Smokeless tobacco: Never Vaping Use Vaping Use: Never used Substance Use Topics Alcohol use: No Drug use: No FAMILY HISTORY Adopted: Yes Problem Relation Age of Onset Diabetes Father Heart Father Hypertension Father Lipids Father Diabetes Maternal Grandmother None Sister Diabetes Daughter Cancer Sister thyroid. The review of systems data was entered by the nurse and reviewed by ks Nursing Notes: Kathy Deshpande LPN 12/20/2021 9:32 AM Signed REVIEW OF SYSTEMS: General: The patient notes fatigue, denies weight loss, denies weight gain, denies feeling hot, andnotes feelings of cold. Eyes: The patient denies glaucoma, denies eye injury/surgery, wears glasses or contacts. Ear/Nose/Throat: The patient notes allergies, denies hayfever, denies ear infections, and denies bloody noses. Cardiovascular: The patient denies chest pain, denies heart disease, denies high blood pressure,denies cardiac stent, denies prior heart attack, denies irregular heart beat, denies high cholesterol, denies poor circulation, denies heart failure, other cardiac issues, denies claudication, denies cold feet, denies peripheral arterial stent. Respiratory: The patient denies tuberculosis, denies pneumonia, denies frequent cough, denies pulmonary embolism, denies shortness of breath, and denies coughing up blood. Gastrointestinal: The patient denies difficulty swallowing, denies acid reflux, denies ulcers, denies vomiting, denies jaundice/hepatitis, denies gallbladder problems, denies black or tarry stools, denies hemorrhoids, denies bleeding from rectum, denies diverticulitis, denies constipation, denies diarrhea, denies loss of stool control, and denies hernias. Kidney/Bladder: The patient notes kidney stones, denies urine infections, and denies bloody urine. Skin: The patient denies a history of skin cancer, denies bleeding/changing moles, and denies a history of skin rash. Neurologic: The patient denies a history of epilepsy/convulsions, denies headaches, denies head/spinal injuries, and denies stroke/TIA. Psychiatric: The patient denies psychiatric medications, denies depression, and denies voices, denies substance abuse. Endocrine: The patient denies thyroid disorders, notes diabetes, and denies hormonal problems. Hematologic: The patient denies a history of bruising, denies bleeding, and denies anemia, denies blood clots. Infections: The patient denies a history of measles and mumps, denies rheumatic fever, and denies sexually transmitted diseases. Musculoskeletal: The patient denies back pain/injury, notes back problems, denies sciatica, notes knee/foot trouble, notes arthritis, or denies gout. When was patient's last Mammogram screening? 2020 Last Colonoscopy: none Kathy Deshpande LPN PHYSICAL EXAMINATION: General: The patient is 66 year old female, well nourished, well hydrated in no acute distress. Thepatient is oriented to time, place, and person. VITALS: Blood pressure 106/62, pulse 82, temperature 36.6 C (97.9 F), height 160 cm (5' 3 ), frjhji47.2 kg (157 lb), SpO2 95 %. Body mass index is 27.81 kg/m . Head: Normal cephalic, atraumatic Eyes: pupils are equally round, sclera are clear/anicteric Neck is supple with no tracheal deviation Respiratory: Normal respiratory excursion and pattern. Abdominal exam: benign Extremities: no clubbing, cyanosis or edema. Neuro: non focal Psych: normal mood Assessment IMPRESSION: constipation PLAN: I have discussed the above with the patient. I have offered colonoscopy , possible biopsies I have explained the procedure to the patient. I have counseled the patient as to the risks of the procedure, including but not limited to: infection, bleeding, injury to any intrabdominal organs such as liver/spleen, perforation of the GI tract,inability to complete the procedure, complications of anesthesia, etc. - the patient understands. The patient was offered a surgery/procedure [facility]. The provider and patient have discussed in detail the risk of exposure to and/or potential harm posed by the COVID-19 viruswith having a surgery/procedure at this time versus the risk of delaying the surgery/procedure. It is not possible to know either the risk of delaying the surgery or procedure or chance of getting aninfection with perfect accuracy, but a joint decision was made between the patient and the providerto proceed at this time with the scheduled surgery/procedure. I have explained to the patient the difference between IV conscious sedation and MAC anesthesia - and I have offered either, according to the patient's wishes. I have explained that with IV conscioussedation there is no anesthesia provider available and therefore there is a limitation of the amount of IV medications that can be given and that the patient may wake up in the middle of the procedure and/or experience pain/discomfort during the procedure. Further discussion was done and the patient was given the opportunity to ask questions and all questions were answered. The patient chooses IVconscious sedation Patient was counseled that if there are changes in his/her medical condition, to let the office know if surgery should proceed. If there are changes in patient's medical condition from time of this encounter to the day of the procedure that preclude anesthesia, patient may have procedure cancelled for patient's safety. The patient wishes to proceed. I have answered all questions to the patient s satisfaction and the patient has no further questions. Diagnoses: (K59.00) Constipation, unspecified constipation type (primary encounter diagnosis) (Z12.11) Screening for colon cancer (R10.13) Epigastric pain (R14.0) Bloating (R11.0) Nausea I have confirmed and edited as necessary, the PFSH and ROS obtained by others. Consultation requested by Jj Silva for an opinion regarding patient's constipation. My final recommendations will be communicated back to the requesting physician by way of shared Medical record or letter to requesting physician via US mail. Return to Clinic: The patient will be scheduled at [facility] for colonoscopy Medical Decision Making: Problems: Low: Stable chronic illness Risk: Low: Low risk from testing/treatment Medical Decision Making Level: 3 - Low Deepa Bravo MD [facility] Instructions* Patient Instructions* Deepa Bravo MD - 12/20/2021 9:40 AM EDT Images from the original note were not included. Bowel Preparation Instructions for: Golytely, Nulytely, Trilyte or Colyte (polyethylene glycol 3350and electrolytes) IF YOU DO NOT FOLLOW THESE DIRECTIONS, YOUR COLONOSCOPY WILL BE CANCELLED. [place] Instructions: Your bowel must be empty so that your doctor can clearly view your colon. Follow all of the instructions in this handout EXACTLY as they are written. Do NOT eat any solid food the ENTIRE day before your colonoscopy. Drink only clear liquids. Buy your bowel preparation at least 5 days before your colonoscopy. TRANSPORTATION on the Day of Your Exam A responsible person MUST be present with you at Check In prior to your colonoscopy and REMAIN in the endoscopy area until you are discharged. You are NOT ALLOWED to drive, take a taxi or bus, or leave the Endoscopy Center ALONE. If you do not have a responsible cdl flatbed truck driver (family member or friend) with you to take you home, your exam cannot be done with sedation and will be cancelled. Please bring a list of all of your current medications, including any Over-the Counter medications with you. Medications If you take insulin, diabetic medications or blood thinners such as Coumadin (warfarin), Plavix (clopidogrel), Ticlid (ticlopidine hydrochloride), Agrylin (anagrelide), Xarelto (Rivaroxaban), Pradaxa(Dabigatran), Eliquis (Apixaban), and Effient (Prasugrel). You MUST call the doctors who orders those medicines for instructions on altering the dosage before your colonoscopy. All other medications should be taken the day of the exam with a sip of water including ASPIRIN. Five (5) Days Before Your Colonoscopy Do NOT take medicines that stop diarrhea - such as Imodium, Kaopectate, or Pepto Bismol. Do NOT take fiber supplements - such as Metamucil, Citrucel, or Perdiem. Do NOT take products that contain iron - such as multi-vitamins (the label lists what is in the products). Do NOT take Vitamin E. Buy the prescription bowel preparation solution at your local [facility] 02/2019 Bowel Preparation Instructions for: Golytely, Nulytely, Trilyte or Colyte (polyethylene glycol 3350and electrolytes) Three (3) Days Before Your Colonoscopy Do NOT eat high-fiber foods - such as popcorn, beans, seeds (flax, sunflower, quinoa), multigrain bread, nuts, salad/vegetables, or fresh and dried fruit. One (1) Day Before Your Colonoscopy Only drink clear liquids the ENTIRE DAY before your colonoscopy. Do NOT eat any solid foods. Drink at least 8 ounces of clear liquids every hour after waking up. The clear liquids you can drink include: Clear Liquid (NO RED LIQUIDS) DO NOT DRINK Gatorade, Pedialyte or Powerade Clear broth or bouillon Coffee or tea (no milk or non-dairy creamer) Carbonated and non-carbonated soft drinks Giacomo-Aid or other fruit flavored drinks Strained fruit juices (no pulp) Jell-O, popsicles, hard candy Water Alcohol Milk or non-dairy creamers Noodles or vegetables in soup Juice with pulp Liquid you cannot see through Do not use tobacco/vaping products The bowel preparation solution will be consumed in two parts. Mix the solution the evening before your colonoscopy and refrigerate before drinking. You may add the flavor pack that came with the bowel preparation. Do NOT add ice, sugar or any other flavorings to the solution. Part 1 At 6:00 PM - Evening before your colonoscopy Drink an 8-oz glass of bowel preparation every 10 minutes for a total of 8 glasses. You may continue to drink clear liquids until midnight. Part 2 On the day of your colonoscopy you may drink clear liquids up to (three) 3 hours before your procedure. 4 1/2 hours before your colonoscopy Drink an 8-oz glass of bowel preparation every 10 minutes for a total of 8 glasses. Fifteen (15) minutes later, drink an 8-oz glass of clear liquids every 15 minutes for a total of 2 glasses. You may continue to drink clear liquids up to (three) 3 hours before your exam. 2 02/[address] [facility] Nurse Note* Kathy Deshpande, HOOP DRIVING MACHINE OPERATOR HELPER - 12/20/2021 9:31 AM EDT REVIEW OF SYSTEMS: General: The patient notes fatigue, denies weight loss, denies weight gain, denies feeling hot, andnotes feelings of cold. Eyes: The patient denies glaucoma, denies eye injury/surgery, wears glasses or contacts. Ear/Nose/Throat: The patient notes allergies, denies hayfever, denies ear infections, and denies bloody noses. Cardiovascular: The patient denies chest pain, denies heart disease, denies high blood pressure,denies cardiac stent, denies prior heart attack, denies irregular heart beat, denies high cholesterol, denies poor circulation, denies heart failure, other cardiac issues, denies claudication, denies cold feet, denies peripheral arterial stent. Respiratory: The patient denies tuberculosis, denies pneumonia, denies frequent cough, denies pulmonary embolism, denies shortness of breath, and denies coughing up blood. Gastrointestinal: The patient denies difficulty swallowing, denies acid reflux, denies ulcers, denies vomiting, denies jaundice/hepatitis, denies gallbladder problems, denies black or tarry stools, denies hemorrhoids, denies bleeding from rectum, denies diverticulitis, denies constipation, denies diarrhea, denies loss of stool control, and denies hernias. Kidney/Bladder: The patient notes kidney stones, denies urine infections, and denies bloody urine. Skin: The patient denies a history of skin cancer, denies bleeding/changing moles, and denies a history of skin rash. Neurologic: The patient denies a history of epilepsy/convulsions, denies headaches, denies head/spinal injuries, and denies stroke/TIA. Psychiatric: The patient denies psychiatric medications, denies depression, and denies voices, denies substance abuse. Endocrine: The patient denies thyroid disorders, notes diabetes, and denies hormonal problems. Hematologic: The patient denies a history of bruising, denies bleeding, and denies anemia, denies blood clots. Infections: The patient denies a history of measles and mumps, denies rheumatic fever, and denies sexually transmitted diseases. Musculoskeletal: The patient denies back pain/injury, notes back problems, denies sciatica, notes knee/foot trouble, notes arthritis, or denies gout. When was patient's last Mammogram screening? 2020 Last Colonoscopy: none Kathy Deshpande LPN documented in [facility]22 Miscellaneous Notes* Telephone Encounter - Ashli Silva PA-C - 12/12/2021 5:56 AM EDT Please schedule: Get Medical Advice on 12/09/21 CONSULT TO GENERAL SURGERY Screening for colon cancer (primary encounter diagnosis) Epigastric pain Bloating Nausea Jj Figueroa PA-C documented in this encounter[facility]-2022 Miscellaneous Notes* Telephone Encounter - Caitlyn Mathews Ma - 12/02/2021 2:22 PM EDT Pt notified via mychart * Telephone Encounter - Ashli Silva PA-C - 12/02/2021 2:10 PM EDT Please advise gastric emptying study was normal Start omeprazole. Notify me of progress in 2 weeks. The following approved medication requests have been transmitted electronically. Requested Prescriptions Signed Prescriptions Disp Refills Omeprazole Magnesium (PRILOSEC OTC) 20 mg tablet 30 tablet 5 Sig: Take 1 tablet by mouth daily before breakfast. 1/2 hr before meal. Authorizing Provider: Ashli SILVA PA-C . documented in this encounterMount [facility]. [facility]-2022 History of Present illness Narrative* Earnestine Lunanes, RT(R) - 12/02/2021 7:30 AM EDT RADIOLOGY SERVICE PROGRESS NOTE SERVICE DATE: 12/02/2021 SERVICE TIME: 7:35 AM PATIENT IDENTITY VERIFICATION COMPLETED USING TWO (2) STANDARD IDENTIFIERS: Name and Date of confirmed by patient verbally FALL SCREENING: Has the patient had 2 falls in the last year or 1 fall with injury or currently using an Ambulatory Assistive Device (Walker, Cane, Wheelchair, Crutches, etc.)? No PATIENT GENDER DATA: .female : No ALLERGIES: Reviewed and unchanged MEDICATIONS REVIEWED: No PATIENT RELEVANT IMPLANT DATA REVIEWED: Not Applicable CREATININE: Creatinine Date Value Ref Range Status 09/05/2021 1.03 (H) 0.58 - 0.96 mg/dL Final 10/12/2020 1.08 (H) 0.58 - 0.96 mg/dL Final 03/31/2020 1.18 (H) 0.58 - 0.96 mg/dL Final Estimated Glomerular Filtration Rate Date Value Ref Range Status 09/05/2021 60 >=60 mL/min/1.73m Final Comment: Estimated Glomerular Filtration Rate (eGFR) is calculated using the 2020 CKD-EPI creatinine equation. This equation utilizes serum creatinine, sex, and age as parameters. The creatinine assay has traceable calibration to isotope dilution- mass spectrometry. Refer to KDIGO guidelines for clinical interpretation. In patients with unstable renal function, e.g. those with acute kidney injury, the eGFRmay not accurately reflect actual GFR. eGFR- Date Value Ref Range Status 10/12/2020 >60 Final P.O.C.T. RESULTS: N/A December 02, [address] PERFORMED: No IV SITE: NM only - not applicable, oral or physician administered agents given to patient POST EXAM PIV STATUS: Not applicable PROCEDURE TYPE: NM GET: 1.1 mCi Tc99m SULFUR COLLOID was administered orally via 4 ounces of Egg Beaters, 1 1/2 pieces of toast, 3/4 ounce of jelly with 2 ounces of water orally ADMINISTRATION TIME: 07:50 PATIENT DISCHARGED TO: Ambulatory patient, left [place] department area. A Diagnostic radioactive procedure has taken place, with no further precautions necessary other than routine body substance precautions. More information regarding radiation safety can be found usingthis link: [email or web address] SIGNATURE: BHARATI Cordero PATIENT NAME: Yamilex Maldonado DATE: December 02, 2021 TIME: 08:00 AM PAGER/CONTACT #: documented in this encounterMount [facility]. [facility]09-06-2022 Miscellaneous Notes* Telephone Encounter - Marcus Guardado LPN - 11/29/2021 9:48 AM EDT Patient phones requesting refills as follows: Requested Prescriptions Pending Prescriptions Disp Refills Cholecalciferol, Vitamin D3, 50 mcg (2,000 unit) cap 90 capsule 3 Sig: Take 1 capsule by mouth once daily. NATHANIEL 11/08/21 NOV 02/13/22 Please review and advise. Marcus Guardado LPN documented in this encounterMount [facility]. [facility]08-31-2022 Miscellaneous Notes* Telephone Encounter - Keila Limon - 11/23/2021 8:21 AM EDT PT has been scheduled. * Telephone Encounter - Marcus Guardado LPN - 11/21/2021 4:23 PM EDT Schedulers please assist pt with scheduling gastric emptying test. Marcus Guardado LPN * Telephone Encounter - Ashli Silva PA-C - 11/21/2021 4:02 PM EDT The following approved medication requests have been transmitted electronically. Requested Prescriptions Signed Prescriptions Disp Refills albuterol HFA (PROVENTIL HFA, VENTOLIN HFA) 90 mcg/actuation inhaler 1 Inhaler 11 Sig: Inhale 2-4 Puffs as instructed every 2 hours as needed for wheezing/shortness of breath. Authorizing Provider: Ashli SILVA PA-C * Telephone Encounter - Christy Stone LPN - 11/21/2021 3:48 PM EDT Pt still needs test arranged. * Telephone Encounter - Christy Stone LPN - 11/21/2021 3:46 PM EDT please other encounter for PA for ventolin. Pt will need new rx first. * Telephone Encounter - Lisa Buckley Ma - 11/21/2021 3:22 PM EDT Pt notified, please help pt schedule appt. Will also route PA jasmin. * Telephone Encounter - Ashli Silva PA-C - 11/21/2021 2:47 PM EDT Please ask if we can place prior auth as patient maintains ventolin works better than Proair. Please schedule: Telephone on 11/21/21 NM GASTRIC EMPTYING SOLID Thanks, Jj Silva PA-C * Telephone Encounter - Sonia Little RN - 11/21/2021 2:09 PM EDT Patient calls and states that she continues to have abdomen and bowel issues. Patient reports that right after she eats it feels like food is just sitting there at the top of stomach and just below rib cage. This is causing patient to feel nauseous. Patient also is asking if provider can send in letter to care source regarding about how patient needs ventolin inhaler. Please review and advise, Sonia Little RN documented in this encounterMount [facility]. [facility]08-29-2022 Miscellaneous Notes* Telephone Encounter - Christy Stone LPN - 11/21/2021 3:44 PM EDT Last rx for then ventolin was 10/18/2020. Please send new rx to start a new PA process. documented in this encounterMount [facility]. [facility]08-16-2022 History of Present illness Narrative* EDGARDO Chawla-Nivia - 11/08/2021 9:00 AM EDT 65 year old female with c/o here for follow up Current concerns Still has pressure in mid lower abdomen Stopped Fosamax a month ago Constipated: taking Miralax every night which helps. BM every other days: no straining. Drinking water. Increased fiber in diet Right arm and wrist killing me . Left handed. Hasn't gone back to Dr. Barnes: feels he discounts me . Post surgery CMC arthrtis, post distal radial fracture Started with some swelling in right lower leg. Very stiff in bones and everything else . Does a lot of walking. 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 manifestations (hcc) (primary encounter diagnosis) Current medications: Metformin 850mg twice daily with meals Taking medication as directed consistently? No Medical Issues / Complications: hypertension and hyperlipidemia Checking blood sugars at home? No. Watching diet? Yes Physical Activity: Regular, a lot of walker Hypoglycemic spells? No Any visual disturbance? No. Needs cataracts removed Chest pain? No New numbness, tingling or loss of sensation? No Any recent foot problems, sores or rashes? No Any recent or sudden weight loss? No Change in urination? Yes. If yes: getting better, going more often Any recent illness? No Last eye exam: Overdue for recheck. Last foot exam: up to date. HBA1C: Hemoglobin A1C (%) Date Value 09/12/2021 6.4 10/12/2020 6.2 08/14/2019 6.4 ) CMP: Glucose 117 09/05/2021 BUN 22 09/05/2021 Creatinine 1.03 09/05/2021 Sodium 140 09/05/2021 Potassium 4.0 09/05/2021 Chloride 105 09/05/2021 CO2 24 09/05/2021 Protein, Total 6.4 09/05/2021 Albumin 4.0 09/05/2021 Calcium 8.8 09/05/2021 Alkaline Phosphatase 67 09/05/2021 Bilirubin, Total 0.3 09/05/2021 AST 16 09/05/2021 ALT 14 09/05/2021 Last 2 Encounter Wt Readings: Date: Wt: 09/19/2021 70.3 kg (155 lb) 08/08/2021 70.3 kg (155 lb) Component Latest Ref Rng & Units 08/14/2019 09/20/2021 Creatinine, Ur Random (UCRR) 20.0 - 300.0 mg/dL 154.3 142.2 Albumin, Urine Random mg/L <12.0 30.1 Albumin/Creat Ratio <30 mg/g Not calculated 21 Hyperlipidemia with target ldl less than 70 Current medication Pravachol 20mg daily Taking medication consistently Yes Observing low cholesterol high fiber diet No Muscle aches Yes Stomach complaints/ diarrhea No Last 2 Lipids: Component Latest Ref Rng & Units 10/12/2020 09/05/2021 Cholesterol, Total <200 mg/dL 171 190 Triglyceride <150 mg/dL 130 127 HDL Cholesterol >39 mg/dL 54 58 LDL Cholesterol <100 mg/dL 91 107 (H) Non HDL Cholesterol <130 mg/dL 117 132 (H) Fasting Time hrs 10 8 VLDL Cholesterol <30 mg/dL 26 25 TC:HDL Ratio <5.10 3.17 3.28 LDL:HDL Ratio <2.54 1.69 1.84 Moderate persistent asthma, uncomplicated Chronic rhinitis Batch Attendant: no. Interval history: none. Current medications: Flonase 50mcg/actuation 2 sprays daily each nostril Azelastine 1 spray each nostril twice a day Ventolin 90mcg /actuation 2 puffs q4h prn Worsening shortness of breath: No. Cough: Yes. Wheezing: sometimes. Smoking: smoking 1 PPD. Compliant with medications: Yes. Using rescue inhaler: none. Tobacco dependence Smoking 1 PPD Depression with anxiety Current meds: Bupropion XL 150mg daily: not taking Paxil 40mg daily Change in medication No. Currently in counseling? No. Any Medication side effects? No. Sleep disturbance? Off and on.. Radiculopathy, cervical region Fibromyalgia Current medications: Robaxin 500mg twice a day as needed Essential tremor Feels worse. Poor writing but able Able to feed self with heavy silverware Stage 3a chronic kidney disease (hcc) Component Latest Ref Rng & Units 10/12/2020 09/05/2021 BUN 7 - 21 mg/dL 26 (H) 22 (H) Creatinine 0.58 - 0.96 mg/dL 1.08 (H) 1.03 (H) Component Latest Ref Rng & Units 10/12/2020 09/05/2021 eGFR-All Other Races . 51 eGFR >=60 mL/min/1.73m 60 Osteoporosis, unspecified osteoporosis type, unspecified pathological fracture presence Current medications: Alendronate 70mg weekly AC Not taking: hates weekly dosing Worried causing constipation and stomach issues. HISTORIES FAMILY HISTORY Adopted: Yes Problem Relation Age of Onset Diabetes Father Heart Father Hypertension Father Lipids Father Diabetes Maternal Grandmother None Sister Diabetes Daughter Cancer Sister thyroid. PAST MEDICAL HISTORY Diagnosis Date Adjustment disorder with depressed mood Kidney stones Mass of right parotid gland 04/14/2019 FNA right parotid:Negative for malignant cells. Warthin's tumor. 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 and being monitored by PCP Type II or unspecified type diabetes mellitus without mention of complication, not stated as uncontrolled PAST SURGICAL HISTORY Procedure Laterality Date APPENDECTOMY APPENDECTOMY ARTHRP INTERPOS INTERCARPAL/METACARPAL JOINTS Right 01/23/2020 Right thumb CMC arthroplasty with LRTI, Palmaris longus CHOLECYSTECTOMY CT MAXILLOFACIAL WO/ CONT Bilateral mild ethmoid thickening bilaterally ESWL kidney stones OOPHORECTOMY PARTIAL/TOTAL UNI/BI bilaterally with hysterectomy PAST SURGICAL HISTORY OF tubal preg PAST SURGICAL HISTORY OF remote left leg/ ankle with plates and screws PAST SURGICAL HISTORY OF Left 11/29/2011 Bunion Removed PAST SURGICAL HISTORY OF Right 04/2019 parotid mass excision SINUS SURGERY HX 02/11/2018 TOT ABD HYST W/WO RMVL TUBE OVARY W/COLPURETHRXY VAGINAL HYSTERECTOMY Social History Tobacco Use Smoking status: Every Day Packs/day: 1.00 Years: 44.00 Pack years: 44.00 Types: Cigarettes Smokeless tobacco: Never Vaping Use Vaping Use: Never used Substance Use Topics Alcohol use: No Drug use: No ACTIVE PROBLEM LIST Well Controlled Type 2 [...] Essential Tremor Pyogenic Inflammation of Bone (Hcc) Mass of Right Parotid Gland Urge Incontinence History of Thyroid Disease Stage 3a Chronic Kidney Disease (Hcc) Moderate Persistent Asthma, Uncomplicated Fracture of Distal End of Right Radius Cervicalgia Sprain of Right Shoulder, Subsequent Encounter Radiculopathy, Cervical Region Current Outpatient Medications Medication Sig Dispense Refill clarithromycin (BIAXIN) 500 mg Take 500 mg by mouth twice daily. polyethylene glycol 3350 (MIRALAX) 17 gram/dose powder 17gm with water or juice daily 225 g 11 buPROPion XL (WELLBUTRIN XL) 150 mg 24 hr tablet Take 1 tablet by mouth once daily. 30 tablet 5 blood sugar diagnostic (BLOOD GLUCOSE TEST) test strip Test blood sugar(s) 3 times daily. Dx: Type 2 DM - Controlled E11.9 Insulin: No 50 Strip 11 PARoxetine (PAXIL) 40 mg tablet Take 1 tablet by mouth once daily. 30 tablet 5 traMADol (ULTRAM) 50 mg tablet Take 1 tablet by mouth twice daily as needed for pain. acetaminophen (TYLENOL ARTHRITIS PAIN) 650 mg CR tablet Take 650 mg by mouth every 8 hours as needed. clindamycin (CLEOCIN) 150 mg capsule Take 1 capsule by mouth three times daily. 30 capsule 0 methocarbamol (ROBAXIN) 500 mg tablet Take 1 tablet by mouth twice daily as needed. 60 tablet 2 alendronate (FOSAMAX) 70 mg tablet Take 1 tablet by mouth one time a week. Take with a full glass of water, on an empty stomach; do NOT lie down for 30minutes. 12 tablet 3 Cholecalciferol, Vitamin D3, 50 mcg (2,000 unit) cap Take 1 capsule by mouth once daily. 90 capsule3 fluticasone (FLONASE) 50 mcg/actuation nasal spray Use 2 Sprays in each nostril once daily. 1 Each 5 azelastine (ASTELIN) 0.1% nasal spray Use 1 [place] in each nostril twice daily. 1 Bottle 5 metFORMIN (GLUCOPHAGE) 850 mg tablet Take 1 tablet by mouth twice daily with meals. 60 tablet 11 pravastatin (PRAVACHOL) 20 mg tablet Take 1 tablet by mouth daily at bedtime. 90 tablet 3 VENTOLIN HFA 90 mcg/actuation inhaler Inhale 2 Puffs as instructed every 4 hours as needed for wheezing/shortness of breath. (Patient not taking: Reported on 08/08/2021 ) 3 Each 3 blood sugar diagnostic (BLOOD GLUCOSE TEST) test strip Test blood sugar(s) 2 times daily. Dx: Type 2 DM - Uncontrolled E11.65 Insulin: No 200 Strip 3 COMPOUNDED PRESCRIPTION Powerstep Original Full Length` 1 Each 0 No current facility-administered medications for this visit. SPIROMETRY Never done LUNG CANCER SCREENING Never done COLORECTAL CANCER SCREENING due on 03/02/2016 DILATED RETINAL EXAM due on 10/06/2021 EXAM: BP 120/74 Pulse 78 Resp 18 Wt 70.3 kg (155 lb) SpO2 95% BMI 27.46 kg/m Pleasant adult woman in no acute distress. Alert and oriented all spheres. Normal affect and cognition. Speech normal. No deficits to learning or comprehension. Skin warm, dry, pink to lips and nailbeds. Normal turgor. Respirations regular and unlabored. HEENT: NCAT. No scleral icterus or conjunctival injection. TM's clear. Nose and oropharynx free from injection or lesion. Oral membranes moist and pink. No cervical lymph nodes. Thyroid non-tender, no masses, or enlargement. Carotids pulses 2+/4+ without bruits. No JVD with HOB at 30 degrees. Chest is normal shape. Lungs are clear to all lopez with good air exchange through out. HRRR without murmur or gallop. No lifts, heaves, or rubs. Abdomen: active bowel sounds throughout, soft, nontender, no masses or organomegaly. No CVAT. Notespressure on palpation over midline lower abdominal scar. No tender on exam. No guarding. Extrem: no clubbing, cyanosis, edema. Distal pulses 2+/4, prompt capillary refill. Right wrist with mild restriction in extension compared to left. Non-tender with side bending. Weaker hand grasp than left (dominant). ASSESSMENT/PLAN: 1. 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 manifestations (HCC) - ICD9: 250.60, ICD10: E11.49 (primary diagnosis) Controlled. - Continue current medications - METFORMIN 850 MG TABLET 2. Hyperlipidemia with target LDL less than 70 - ICD9: 272.4, ICD10: E78.5 - good control - Continue current medication. - PRAVASTATIN 20 MG TABLET 3. Moderate persistent asthma, uncomplicated - ICD9: 493.90, ICD10: J45.40 Mild persistent Asthma stable and continue to smoke 1PPD. Smokers wheeze. Not ready to quit or explore options. - Continue current meds - Avoidance of triggers recommended 4. Tobacco dependence - ICD9: 305.1, ICD10: F17.200 - Cessation encouraged. - Physiologic and physical aspects of tobacco addiction as well as strategies for quitting were discussed. - Counseling was given focusing on the harmful effects of this addiction especially given the patient's medical condition(s) which will be worsened because of the chemicals in tobacco. 5. Depression with anxiety - ICD9: 300.4, ICD10: F41.8 Stable- doesn't want to start bupropion 6. Radiculopath , cervical region - ICD9: 723.4, ICD10: M54.12 stable 7. Fibromyalgia - ICD9: 729.1, ICD10: M79.7 Same- avoids uses of muscle relaxers because using tramadol. 8. Essential tremor - ICD9: 333.1, ICD10: G25.0 Worsening, multiple meds. Doesn't want gabapentin- complications in past. Doesn't want beta blockers due worry over unsteadiness and falls, fear of being more fatigued. - CONSULT TO NEUROLOGY 9. Stage 3a chronic kidney disease (HCC) - ICD9: 585.3, ICD10: N18.31 stable 10. Osteoporosis, unspecified osteoporosis type, unspecified pathological fracture presence - ICD9:733.00, ICD10: M81.0 - Stop alendronate - begin tx with ibandronate (Boniva) - Reviewed the need for Calcium and Vitamin D supplements and weight bearing exercise as tolerated 11. Chronic rhinitis - ICD9: 472.0, ICD10: J31.0 stable 12. Chronic wrist pain, right - ICD9: 719.43, 338.29, ICD10: M25.531, G89.29 XRAY wrist again 13. CMC DJD(carpometacarpal degenerative joint disease), localized primary, right - ICD9: 715.14, ICD10: M19.[address] Barnes 14. Generalized abdominal pressure - ICD9: 789.07, ICD10: R10.84 - follow if worsening. Exam WNL 15. Right wrist pain - ICD9: 719.43, ICD10: M25.531 Xray today and schedule follow up with Dr. Barnes to discuss on leaving today Ashli Silva PA-C documented in this [facility]22 Instructions* Patient Instructions* Ashli Silva PA-C - 09/19/2021 8:34 AM EDT Take MIRALAX 17 gm (one scoop) 1-3 three times as need to maintain 3-4 bowel movents a week. Fiber: How to Increase the Amount in Your Diet Why should I eat more fiber? Fiber has been shown to have a wide rang of health advantages. Foods that are high in fiber can help in the treatment of constipation, hemorrhoids, diverticulitis (the inflammation of pouches in the digestive tract) and irritable bowel syndrome. Dietary fiber may also help lower your cholesterol, an d reduce your risk of coronary heart disease, type 2 diabetes and certain types of cancer. Eating fiber-rich foods also aids in digestion, the absorption of nutrients and helps you to feel jane longer after a meal (which helps curb overeating and thus weight gain). How can I get more fiber in my diet? It is recommended that men age 50 and younger consume at least 38 grams of fiber per day, while women age 50 and younger should consume at least 25 grams per day. Try the following ideas to increase the fiber in your diet: Eat at least 2 cups of fruits and 2 1/2 cups of vegetables each day. Fruits and vegetables that arehigh in fiber include: Beans such as navy (1/2 cup = 9.5 grams), kidney (1/2 cup = 8.2 grams), jara (1/2 cup = 7.7 grams), black (1/2 cup = 7.5), pan (1/2 = 6.6 grams), white (1/2 cup = 6.3 grams) and great northern (1/2cup = 6.2 grams). Artichokes (1 artichoke = 6.5 grams) Sweet potatoes (1 medium sweet potato = 4.8 grams) Pears (I small pear = 4.4 grams) Green peas (1/2 cup = 4.4 grams) Berries such as raspberries (1/2 cup = 4.0 grams) and blackberries (1/2 cup = 3.8 grams) Prunes (1/2 cup = 3.8 grams) Figs and dates (1/4 cup = 3.6 grams) Spinach (1/2 cup = 3.5 grams) Apples (1 medium apple = 3.3 grams) Oranges (I medium orange = 3.1 grams) Replace refined white bread with whole-grain breads and cereals. Eat brown rice instead of white rice. Eat more of the following foods: Bran muffins Oatmeal Bran or multiple-grain cereals, cooked or dry Brown rice Popcorn 100% whole-wheat bread When eating store-bought foods, check the nutrition information labels for the amounts of dietary fiber in each product. Aim for 5 grams of fiber per serving. Add 1/4 cup of wheat bran (olvera's bran) to foods such as cooked cereal, applesauce or meat loaf. Eat beans each week. Start slowly. When you first add fiber to your diet you may notice bloating, cramping or gas. But you can preventthis by making smaller changes in your diet over a period of time. Start with one of the changes listed above, then wait several days to a week before making another. If one change doesn't seem to work for you, try a different one. Be sure to drink more fluids when you increase the amount of fiber you eat. Liquids help your body digest fiber. Try to drink 8 glasses of no- or low- calorie beverages, such as water, unsweetened teaor diet soda each day. Special Instructions: Copyright [employer] 2008 Copyright 2010 [employer] All rights reserved. - [email or web address] documented in this encounter[facility] History of Present illness Narrative* Ashli Silva PA-C - 09/19/2021 8:00 AM EDT 65 year old female with c/o off and on for the last few months. Across lower abdomen with a lot of pressure and in lower back. At worst 7/10, at leas 5/10, no days without pain. Inhibits sitting and sewing. Nauseated without vomiting, appetite lower after back injection which helped tailbone a little bit . No vomiting, acid reflux. No weight loss. Feels tight. Sits on donut cushion which seems to help. Urination: I don't pee a lot . Feels should be going more than she is. Once in awhile urge incontinence. Always have pressure down there . S/p DIXON, BSO. Bowel once a week if I'm malvin . Eats granola bars for fiber. Fell in bedroom 2 months ago and still has some left lateral hip pain. Takes tramadol for pain as directed. Taking tylenol once in awhile. HISTORIES FAMILY HISTORY Adopted: Yes Problem Relation Age of Onset Diabetes Father Heart Father Hypertension Father Lipids Father Diabetes Maternal Grandmother None Sister Diabetes Daughter Cancer Sister thyroid. PAST MEDICAL HISTORY Diagnosis Date Adjustment disorder with depressed mood Kidney stones Mass of right parotid gland 04/14/2019 FNA right parotid:Negative for malignant cells. Warthin's tumor. 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 and being monitored by PCP Type II or unspecified type diabetes mellitus without mention of complication, not stated as uncontrolled PAST SURGICAL HISTORY Procedure Laterality Date APPENDECTOMY APPENDECTOMY ARTHRP INTERPOS INTERCARPAL/METACARPAL JOINTS Right 01/23/2020 Right thumb CMC arthroplasty with LRTI, Palmaris longus CHOLECYSTECTOMY CT MAXILLOFACIAL WO/ CONT Bilateral mild ethmoid thickening bilaterally ESWL kidney stones OOPHORECTOMY PARTIAL/TOTAL UNI/BI bilaterally with hysterectomy PAST SURGICAL HISTORY OF tubal preg PAST SURGICAL HISTORY OF remote left leg/ ankle with plates and screws PAST SURGICAL HISTORY OF Left 11/29/2011 Bunion Removed PAST SURGICAL HISTORY OF Right 04/2019 parotid mass excision SINUS SURGERY HX 02/11/2018 TOT ABD HYST W/WO RMVL TUBE OVARY W/COLPURETHRXY VAGINAL HYSTERECTOMY Social History Tobacco Use Smoking status: Current Every Day Smoker Packs/day: 1.00 Years: 44.00 Pack years: 44.00 Types: Cigarettes Smokeless tobacco: Never Used Vaping Use Vaping Use: Never used Substance Use Topics Alcohol use: No Drug use: No ACTIVE PROBLEM LIST Well Controlled Type 2 [...] Essential Tremor Pyogenic Inflammation of Bone (Hcc) Mass of Right Parotid Gland Urge Incontinence History of Thyroid Disease Stage 3a Chronic Kidney Disease (Hcc) Moderate Persistent Asthma, Uncomplicated Fracture of Distal End of Right Radius Cervicalgia Sprain of Right Shoulder, Subsequent Encounter Radiculopathy, Cervical Region Current Outpatient Medications Medication Sig Dispense Refill buPROPion XL (WELLBUTRIN XL) 150 mg 24 hr tablet Take 1 tablet by mouth once daily. 30 tablet 5 blood sugar diagnostic (BLOOD GLUCOSE TEST) test strip Test blood sugar(s) 3 times daily. Dx: Type 2 DM - Controlled E11.9 Insulin: No 50 Strip 11 PARoxetine (PAXIL) 40 mg tablet Take 1 tablet by mouth once daily. 30 tablet 5 traMADol (ULTRAM) 50 mg tablet Take 1 tablet by mouth twice daily as needed for pain. acetaminophen (TYLENOL ARTHRITIS PAIN) 650 mg CR tablet Take 650 mg by mouth every 8 hours as needed. clindamycin (CLEOCIN) 150 mg capsule Take 1 capsule by mouth three times daily. 30 capsule 0 methocarbamol (ROBAXIN) 500 mg tablet Take 1 tablet by mouth twice daily as needed. 60 tablet 2 alendronate (FOSAMAX) 70 mg tablet Take 1 tablet by mouth one time a week. Take with a full glass of water, on an empty stomach; do NOT lie down for 30minutes. 12 tablet 3 Cholecalciferol, Vitamin D3, 50 mcg (2,000 unit) cap Take 1 capsule by mouth once daily. 90 capsule3 fluticasone (FLONASE) 50 mcg/actuation nasal spray Use 2 Sprays in each nostril once daily. 1 Each 5 azelastine (ASTELIN) 0.1% nasal spray Use 1 Ganado in each nostril twice daily. 1 Bottle 5 metFORMIN (GLUCOPHAGE) 850 mg tablet Take 1 tablet by mouth twice daily with meals. 60 tablet 11 pravastatin (PRAVACHOL) 20 mg tablet Take 1 tablet by mouth daily at bedtime. 90 tablet 3 VENTOLIN HFA 90 mcg/actuation inhaler Inhale 2 Puffs as instructed every 4 hours as needed for wheezing/shortness of breath. (Patient not taking: Reported on 08/08/2021 ) 3 Each 3 blood sugar diagnostic (BLOOD GLUCOSE TEST) test strip Test blood sugar(s) 2 times daily. Dx: Type 2 DM - Uncontrolled E11.65 Insulin: No 200 Strip 3 COMPOUNDED PRESCRIPTION Powerstep Original Full Length` 1 Each 0 No current facility-administered medications for this visit. SPIROMETRY Never done LUNG CANCER SCREENING Never done COLORECTAL CANCER SCREENING due on 03/02/2016 DILATED RETINAL EXAM due on 10/06/2021 URINE ALBUMIN:CREATININE RATIO due on 10/12/2021 EXAM: BP 110/60 Pulse 66 Resp 20 Wt 70.3 kg (155 lb) SpO2 96% BMI 27.46 kg/m Pleasant older overweight adult woman in no acute distress. Alert and oriented all spheres. Normal affect and cognition. Speech normal. No deficits to learning or comprehension. Skin warm, dry, pink to lips and nailbeds. Normal turgor. Respirations regular and unlabored. HEENT: NCAT. No scleral icterus or conjunctival injection. TM's clear. Nose and oropharynx free from injection or lesion. Oral membranes moist and pink. No cervical lymph nodes. Thyroid non-tender, no masses, or enlargement. Carotids pulses 2+/4+ without bruits. No JVD with HOB at 30 degrees. Chest is normal shape. Lungs are clear to all lopez with good air exchange through out. HRRR without murmur or gallop. No lifts, heaves, or rubs. Abdomen: abdomen rounded, soft, mildly tender generalized. Active bowel sounds throughout, soft, nomasses or organomegaly. No CVAT. Extrem: no clubbing or cyanosis. Edema: none. Extremities are warm and pink with prompt capillary refill. ASSESSMENT/PLAN: 1. Lower abdominal pain - ICD9: 789.09, ICD10: R10.30 (primary diagnosis) - chronic constipation, bilateral lower abdominal pain Unable to eat many foods due to edentulous status pending dentures. Restart miralax and take it as instructed 1-3 times daily until bowels at least 3-4/ week - UA DIP, URINE (POC) - CONSULT TO GASTROENTEROLOGY 2. 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 manifestations (HCC) - ICD9: 250.60, ICD10: E11.49 Controlled. - Continue current medications - ALBUMIN/CREAT RATIO RND UR Ashli Silva PA-C documented in this encounterMount [facility]22 Miscellaneous Notes* Telephone Encounter - Marcus Guardado LPN - 09/16/2021 4:51 PM EDT TC to pt, notified of provider response. She verbalized understanding. Marcus Guardado LPN * Telephone Encounter - Ashli Silva PA-C - 09/16/2021 4:42 PM EDT Blood sugars will come down as steroid effects wear off- not worrisome level with blood sugar. Schedule follow up for abd pain if persistent Jj Figueroa PA-C * Telephone Encounter - Reshma Thomas RN - 09/16/2021 2:54 PM EDT Patient calls in to report stomach pain. Nurse triage completed. Protocol recommends see provider within 2 weeks. Patient agreeable. Appointment scheduled. Care advice reviewed. Patient verbalizes understanding. Patient also asking for provider recommendation for blood sugar elevation. She reports current BS reading is 189 d/t injection for back pain this am. Patient reports her normal would be between 90-100. The only thing patient has ate today is two waffles and two eggs with water to drink. Patient reports every time she receives an injection her blood sugars elevate for several days sometimes up to 300. Patient asking if provider would be willing to call in a short supply of glimepiride to [facility]. Reason for Disposition Abdominal pain is a chronic symptom (recurrent or ongoing AND present > 4 weeks) Answer Assessment - Initial Assessment Questions 1. LOCATION: Lower abdomen below belly button pressure/cramping. Last BM two days ago. Patient reports having diarrhea a couple of times a week recently with no formed bowel movements. 2. RADIATION: Radiates into groin/pelvis especially with bowel movements. 3. ONSET: Before last appointment with provider and started again a couple of weeks ago. 4. SUDDEN: Gradual 5. PATTERN: Constant staying the same over the past couple of weeks. Currently isn't feeling any pain d/t injection received in back this morning. 6. SEVERITY: - MODERATE (4-7): interferes with normal activities or awakens from sleep, tender to touch O currently d/t being numb from injection. 7 when it is worst. 7. RECURRENT SYMPTOM: Yes prior to previous appointment with provider but resolved on it's own. 8. CAUSE: Unknown. Patient thinks that she wants to get a colonoscopy. 9. RELIEVING/AGGRAVATING FACTORS: No relieving/aggravating factors. Patient hasn't tried any OTC medication. 10. OTHER SYMPTOMS: Diarrhea twice weekly with Nausea when bowels need to move. Denies vomiting, constipation, or urine problems. Protocols used: ABDOMINAL PAIN - [id number] documented in this encounterMount [facility]. [facility]05-16-2022 Miscellaneous Notes* Telephone Encounter - Ashli Silva PA-C - 08/08/2021 5:42 PM EDT The following approved medication requests have been transmitted electronically. Signed Prescriptions Disp Refills Blood-Glucose Meter monitoring kit 1 Each 0 Sig: Glucose Meter of Choice - Kit - Dx: Type 2 DM -Controlled E11.9. Insulin: No JAZMIN: No Authorizing Provider: Ashli SILVA PA-C * Telephone Encounter - Tiffanie Carlos RN - 08/08/2021 1:20 PM EDT Patient calling and requesting a script for a [facility] [place], if provider agreeable. Script pended for review. No call back needed to patient unless questions. Thank you. documented in this encounterMount [facility]. [facility]05-16-[facility]22 History of Present illness Narrative* Ashli Silva PA-C - 08/08/2021 8:40 AM EDT 65 year old female with c/o was having diarrhea over about a week which has since resolved. Was having sx on and off nearly a month after she fell. Always feels a little lightheaded and dizzy. Has injection neck last Sunday with Dr. Ruiz. No excruciating pain in head. Still has pain in right shoulder and wrist. PT has helped some first round, second round no benefit Having sense of weakness in right arm, can't lift a cup of tea. Pain right wrist. Bothers to drive. Tremors is getting worse. Notes with reaching, writing, worse if anxious If sits on tailbone can feel in with pressure in neck. Mood is okay Still gets depressed. A lot of anxiety. Muscle relaxer 1/2 seems to help anxiety, feels calmer. PHQ-9 10/12/2020 11/13/2020 08/06/2021 Score 12 13 15 DOC - 7 SCORES 08/06/2021 DOC-7 Score 13 Diabetes Mellitus Type 2: Current medications: Metformin 850mg twice a day Taking medication as directed consistently? Yes Medical Issues / Complications: hypertension and hyperlipidemia Checking blood sugars at home? No. Watching diet? Yes, somewhat Physical Activity: Regular Hypoglycemic spells? No Any visual disturbance? No Chest pain? No. New numbness, tingling or loss of sensation? Right hand-improved since epidural injectioin Dr. Ruiz Any recent foot problems, sores or rashes? No Any recent or sudden weight loss? No Change in urination? No. If yes: Any recent illness? No Last eye exam: up to date. Last foot exam: up to date. HBA1C: Hemoglobin A1C (%) Date Value 10/12/2020 6.2 08/14/2019 6.4 ) CMP: Glucose 121 10/12/2020 BUN 26 10/12/2020 Creatinine 1.08 10/12/2020 Sodium 140 10/12/2020 Potassium 3.9 10/12/2020 Chloride 106 10/12/2020 CO2 26 10/12/2020 Protein, Total 6.6 10/12/2020 Albumin 4.1 10/12/2020 Calcium 9.1 10/12/2020 Alkaline Phosphatase 74 10/12/2020 Bilirubin, Total 0.3 10/12/2020 AST 16 10/12/2020 ALT 15 10/12/2020 Last 2 Encounter Wt Readings: Date: Wt: 08/08/2021 70.3 kg (155 lb) 05/26/2021 71.7 kg (158 lb) Hyperlipidemia: Current medication pravastatin 20mg At bedtime Taking medication consistently Yes Observing low cholesterol high fiber diet No Muscle aches No Stomach complaints/ diarrhea No Last 2 Lipids: Component Latest Ref Rng & Units 01/19/2020 10/12/2020 Cholesterol, Total <200 mg/dL 168 171 Triglyceride <150 mg/dL 114 130 HDL Cholesterol >39 mg/dL 46 54 LDL Cholesterol <100 mg/dL 99 91 Non HDL Cholesterol <130 mg/dL 122 117 Fasting Time hrs 10 10 VLDL Cholesterol <30 mg/dL 23 26 TC:HDL Ratio <5.10 3.65 3.17 LDL:HDL Ratio <2.54 2.15 1.69 Smoking 1 PPD again HISTORIES FAMILY HISTORY Adopted: Yes Problem Relation Age of Onset Diabetes Father Heart Father Hypertension Father Lipids Father Diabetes Maternal Grandmother None Sister Diabetes Daughter Cancer Sister thyroid. PAST MEDICAL HISTORY Diagnosis Date Adjustment disorder with depressed mood Kidney stones Mass of right parotid gland 04/14/2019 FNA right parotid:Negative for malignant cells. Warthin's tumor. 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 and being monitored by PCP Type II or unspecified type diabetes mellitus without mention of complication, not stated as uncontrolled PAST SURGICAL HISTORY Procedure Laterality Date APPENDECTOMY APPENDECTOMY ARTHRP INTERPOS INTERCARPAL/METACARPAL JOINTS Right 01/23/2020 Right thumb CMC arthroplasty with LRTI, Palmaris longus CHOLECYSTECTOMY CT MAXILLOFACIAL WO/ CONT Bilateral mild ethmoid thickening bilaterally ESWL kidney stones OOPHORECTOMY PARTIAL/TOTAL UNI/BI bilaterally with hysterectomy PAST SURGICAL HISTORY OF tubal preg PAST SURGICAL HISTORY OF remote left leg/ ankle with plates and screws PAST SURGICAL HISTORY OF Left 11/29/2011 Bunion Removed PAST SURGICAL HISTORY OF Right 04/2019 parotid mass excision SINUS SURGERY HX 02/11/2018 TOT ABD HYST W/WO RMVL TUBE OVARY W/COLPURETHRXY VAGINAL HYSTERECTOMY Social History Tobacco Use Smoking status: Current Every Day Smoker Packs/day: 1.00 Years: 44.00 Pack years: 44.00 Types: Cigarettes Smokeless tobacco: Never Used Vaping Use Vaping Use: Never used Substance Use Topics Alcohol use: No Drug use: No ACTIVE PROBLEM LIST Well Controlled Type 2 [...] Essential Tremor Pyogenic Inflammation of Bone (Hcc) Mass of Right Parotid Gland Urge Incontinence History of Thyroid Disease Stage 3a Chronic Kidney Disease (Hcc) Moderate Persistent Asthma, Uncomplicated Fracture of Distal End of Right Radius Cervicalgia Sprain of Right Shoulder, Subsequent Encounter Radiculopathy, Cervical Region Current Outpatient Medications Medication Sig Dispense Refill blood sugar diagnostic (BLOOD GLUCOSE TEST) test strip Test blood sugar(s) 3 times daily. Dx: Type 2 DM - Controlled E11.9 Insulin: No 50 Strip 11 PARoxetine (PAXIL) 40 mg tablet Take 1 tablet by mouth once daily. 30 tablet 5 traMADol (ULTRAM) 50 mg tablet Take 1 tablet by mouth twice daily as needed for pain. acetaminophen (TYLENOL ARTHRITIS PAIN) 650 mg CR tablet Take 650 mg by mouth every 8 hours as needed. clindamycin (CLEOCIN) 150 mg capsule Take 1 capsule by mouth three times daily. 30 capsule 0 methocarbamol (ROBAXIN) 500 mg tablet Take 1 tablet by mouth twice daily as needed. 60 tablet 2 alendronate (FOSAMAX) 70 mg tablet Take 1 tablet by mouth one time a week. Take with a full glass of water, on an empty stomach; do NOT lie down for 30minutes. (Patient not taking: Reported on 06/01/2021 ) 12 tablet 3 nicotine (NICODERM) 21 mg/24 hr Apply 1 Patch as directed every 24 hours. 30 Patch 1 buPROPion XL (WELLBUTRIN XL) 150 mg 24 hr tablet Take 1 tablet by mouth once daily. 30 tablet 5 Cholecalciferol, Vitamin D3, 50 mcg (2,000 unit) cap Take 1 capsule by mouth once daily. 90 capsule3 fluticasone (FLONASE) 50 mcg/actuation nasal spray Use 2 Sprays in each nostril once daily. 1 Each 5 azelastine (ASTELIN) 0.1% nasal spray Use 1 Ganado in each nostril twice daily. 1 Bottle 5 metFORMIN (GLUCOPHAGE) 850 mg tablet Take 1 tablet by mouth twice daily with meals. 60 tablet 11 pravastatin (PRAVACHOL) 20 mg tablet Take 1 tablet by mouth daily at bedtime. 90 tablet 3 VENTOLIN HFA 90 mcg/actuation inhaler Inhale 2 Puffs as instructed every 4 hours as needed for wheezing/shortness of breath. 3 Each 3 blood sugar diagnostic (BLOOD GLUCOSE TEST) test strip Test blood sugar(s) 2 times daily. Dx: Type 2 DM - Uncontrolled E11.65 Insulin: No 200 Strip 3 COMPOUNDED PRESCRIPTION Powerstep Original Full Length` 1 Each 0 No current facility-administered medications for this visit. SPIROMETRY Never done LUNG CANCER SCREENING Never done COLORECTAL CANCER SCREENING due on 03/02/2016 HEMOGLOBIN/HEMATOCRIT due on 01/18/2021 ADVANCE DIRECTIVE DISCUSSION Never done HBA1C due on 04/14/2021 EXAM: BP 112/64 Pulse 67 Temp 36.7 C (98 F) Wt 70.3 kg (155 lb) SpO2 96% BMI 27.46 kg/m Pleasant older woman in no acute distress. Alert and oriented all spheres. Normal affect and cognition. Speech normal. No deficits to learning or comprehension. Skin warm, dry, pink to lips and nailbeds. Normal turgor. Respirations regular and unlabored. HEENT: NCAT. No scleral icterus or conjunctival injection. TM's clear. Nose and oropharynx free from injection or lesion. Oral membranes moist and pink. No cervical lymph nodes. Thyroid non-tender, no masses, or enlargement. Carotids pulses 2+/4+ without bruits. No JVD with HOB at 30 degrees. Chest is normal shape. Lungs are clear to all lopez with good air exchange through out. HRRR without murmur or gallop. No lifts, heaves, or rubs. Extrem: no clubbing or cyanosis. Edema: none. Extremities are warm and pink with prompt capillary refill. Mild dorsal kyphosis. Neuro: moderate intention tremor with right hand. Right hand grasp < left though questionable effort. If sits upright, feels pain from sacrum translating to neck. No hyperreflexia. ASSESSMENT/PLAN: 1. 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 manifestations (HCC) - ICD9: 250.60, ICD10: E11.49 (primary diagnosis) Stable - Continue current medications 2. Hyperlipidemia with target LDL less than 70 - ICD9: 272.4, ICD10: E78.5 - good control - Continue current medication. - Encouraged following a low fat, low cholesterol diet. - Discussed the benefits of regular aerobic exercise and weight loss. 3. Radiculopathy, cervical region - ICD9: 723.4, ICD10: M54.[address] Ruiz 4. Moderate persistent asthma, uncomplicated - ICD9: 493.90, ICD10: J45.40 Moderate persistent Asthma stable - Continue current meds - Avoidance of triggers recommended 5. Essential tremor - ICD9: 333.1, ICD10: G25.0 Persistent, may be worsening Discussed options for treat,ment. 6. Depression with anxiety - ICD9: 300.4, ICD10: F41.8 Feels low energy. Moderate scores in anxiety and depression. Did not start wellbutrin: advised would help to stop smoking and improve executive functioning agrees to try. 7. Fibromyalgia - ICD9: 729.1, ICD10: M79.7 8. Tobacco dependence - ICD9: 305.1, ICD10: F17.200 - Cessation encouraged. - Physiologic and physical aspects of tobacco addiction as well as strategies for quitting were discussed. - Counseling was given focusing on the harmful effects of this addiction especially given the patient's medical condition(s) which will be worsened because of the chemicals in tobacco. Ashli Silva PA-C documented in this encounter[facility]2022 Miscellaneous Notes* Telephone Encounter - Dejah Boss LPN - 08/05/2021 8:15 AM EDT Patient needs lab orders fixed will come in tomorrow to fix. documented in this encounterMount [facility]05-10-2022 Miscellaneous Notes* Telephone Encounter - Caitlyn Mathews Ma - 08/02/2021 5:35 PM EDT Order faxed * Telephone Encounter - Ashli Silva PA-C - 08/02/2021 5:30 PM EDT Ordered same day: Order had to be printed and sent Sent to nursing desk. Thanks, Jj Silva PA-C * Telephone Encounter - Marcus Guardado LPN - 08/02/2021 8:30 AM EDT Please send order for new meter to pharmacy also. Marcus Guardado LPN * Telephone Encounter - Ashli Silva PA-C - 08/01/2021 6:18 PM EDT The following approved medication requests have been transmitted electronically. Signed Prescriptions Disp Refills blood sugar diagnostic (BLOOD GLUCOSE TEST) test strip 50 Strip 11 Sig: Test blood sugar(s) 3 times daily. Dx: Type 2 DM - Controlled E11.9 Insulin: No Ashli Silva PA-C documented in this encounterMount [facility]. [facility]04-20-2022 Miscellaneous Notes* Telephone Encounter - Loreta Levin LPN - 07/13/2021 12:41 PM EDT Patient phones requesting refills as follows: Pending Prescriptions Disp Refills PAROXETINE 40 MG TABLET 30 tablet 5 Sig: Take 1 tablet by mouth once daily. JAZMIN: No NATHANIEL-05/26/21 Labs-10/12/20 NOV-none med filled 12/31/20 Please review and advise. Loreta Levin LPN documented in this encounterMount [facility]. [facility]02-16-[facility]22 History of Past illness Narrative* Problem Noted Date Resolved Date Cervicalgia 05/11/2021 12/28/2021 Sprain of right shoulder, subsequent encounter 0 05/11/2021 12/28/2021 Radiculopathy, cervical region 05/11/2021 1 Mass of right parotid gland 04/14/201910/24 Overview: 04/08/2019 FNA right parotid:Negative for malignant cells. Warthin's tumor. Suture reaction 01/05/2012 04/08/2015 documented as of this encounter (statuses as of 01/06/2022) [facility]02-16-2022 History of Past illness Narrative* Problem Noted Date Resolved Date Cervicalgia 05/11/2021 12/28/2021 Sprain of right shoulder, subsequent encounter 0 05/11/2021 12/28/2021 Radiculopathy, cervical region 05/11/2021 1 Mass of right parotid gland 04/14/201910/24 Overview: 04/08/2019 FNA right parotid:Negative for malignant cells. Warthin's tumor. Suture reaction 01/05/2012 04/08/2015 documented as of this encounter (statuses as of 01/06/2022) [facility]02[facility]2022 History of Past illness Narrative* Problem Noted Date Resolved Date Cervicalgia 05/11/2021 12/28/2021 Sprain of right shoulder, subsequent encounter 0 05/11/2021 12/28/2021 Radiculopathy, cervical region 05/11/2021 1 Mass of right parotid gland 04/14/201910/24 Overview: 04/08/2019 FNA right parotid:Negative for malignant cells. Warthin's tumor. Suture reaction 01/05/2012 04/08/2015 documented as of this encounter (statuses as of 01/10/2022) [address]16-2022 History of Past illness Narrative* Problem Noted Date Resolved Date Cervicalgia 05/11/2021 12/28/2021 Sprain of right shoulder, subsequent encounter 0 05/11/2021 12/28/2021 Radiculopathy, cervical region 05/11/2021 1 Mass of right parotid gland 04/14/201910/24 Overview: 04/08/2019 FNA right parotid:Negative for malignant cells. Warthin's tumor. Suture reaction 01/05/2012 04/08/2015 documented as of this encounter (statuses as of 01/12/2022) [address]16-2022 History of Past illness Narrative* Problem Noted Date Resolved Date Cervicalgia 05/11/2021 12/28/2021 Sprain of right shoulder, subsequent encounter 0 05/11/2021 12/28/2021 Radiculopathy, cervical region 05/11/2021 1 Mass of right parotid gland 04/14/201910/24 Overview: 04/08/2019 FNA right parotid:Negative for malignant cells. Warthin's tumor. Suture reaction 01/05/2012 04/08/2015 documented as of this encounter (statuses as of 01/13/2022) [address]16-2022 History of Past illness Narrative* Problem Noted Date Resolved Date Cervicalgia 05/11/2021 12/28/2021 Sprain of right shoulder, subsequent encounter 0 05/11/2021 12/28/2021 Radiculopathy, cervical region 05/11/2021 1 Mass of right parotid gland 04/14/201910/24 Overview: 04/08/2019 FNA right parotid:Negative for malignant cells. Warthin's tumor. Suture reaction 01/05/2012 04/08/2015 documented as of this encounter (statuses as of 01/14/2022) [address]16-2022 History of Past illness Narrative* Problem Noted Date Resolved Date Cervicalgia 05/11/2021 12/28/2021 Sprain of right shoulder, subsequent encounter 0 05/11/2021 12/28/2021 Radiculopathy, cervical region 05/11/2021 1 Mass of right parotid gland 04/14/201910/24 Overview: 04/08/2019 FNA right parotid:Negative for malignant cells. Warthin's tumor. Suture reaction 01/05/2012 04/08/2015 documented as of this encounter (statuses as of 01/16/2022) [address]16-2022 History of Past illness Narrative* Problem Noted Date Resolved Date Cervicalgia 05/11/2021 12/28/2021 Sprain of right shoulder, subsequent encounter 0 05/11/2021 12/28/2021 Radiculopathy, cervical region 05/11/2021 1 Mass of right parotid gland 04/14/201910/24 Overview: 04/08/2019 FNA right parotid:Negative for malignant cells. Warthin's tumor. Suture reaction 01/05/2012 04/08/2015 documented as of this encounter (statuses as of 01/20/2022) [address]16-2022 History of Past illness Narrative* Problem Noted Date Resolved Date Cervicalgia 05/11/2021 12/28/2021 Sprain of right shoulder, subsequent encounter 0 05/11/2021 12/28/2021 Radiculopathy, cervical region 05/11/2021 1 Mass of right parotid gland 04/14/201910/24 Overview: 04/08/2019 FNA right parotid:Negative for malignant cells. Warthin's tumor. Suture reaction 01/05/2012 04/08/2015 documented as of this encounter (statuses as of 01/30/2022) [address]16-2022 History of Past illness Narrative* Problem Noted Date Resolved Date Cervicalgia 05/11/2021 12/28/2021 Sprain of right shoulder, subsequent encounter 0 05/11/2021 12/28/2021 Radiculopathy, cervical region 05/11/2021 1 Mass of right parotid gland 04/14/201910/24 Overview: 04/08/2019 FNA right parotid:Negative for malignant cells. Warthin's tumor. Suture reaction 01/05/2012 04/08/2015 documented as of this encounter (statuses as of 02/01/2022) [facility]02[facility]2022 History of Past illness Narrative* Problem Noted Date Resolved Date Cervicalgia 05/11/2021 12/28/2021 Sprain of right shoulder, subsequent encounter 0 05/11/2021 12/28/2021 Radiculopathy, cervical region 05/11/2021 1 Mass of right parotid gland 04/14/201910/24 Overview: 04/08/2019 FNA right parotid:Negative for malignant cells. Warthin's tumor. Suture reaction 01/05/2012 04/08/2015 documented as of this encounter (statuses as of 02/08/2022) [facility]20[facility] History of Past illness Narrative* Problem Noted Date Resolved Date Cervicalgia 05/11/2021 12/28/2021 Sprain of right shoulder, subsequent encounter 0 05/11/2021 12/28/2021 Radiculopathy, cervical region 05/11/2021 1 Mass of right parotid gland 04/14/201910/24 Overview: 04/08/2019 FNA right parotid:Negative for malignant cells. Warthin's tumor. Suture reaction 01/05/2012 04/08/2015 documented as of this encounter (statuses as of 02/09/2022) [facility]2022 History of Past illness Narrative* Problem Noted Date Resolved Date Cervicalgia 05/11/2021 12/28/2021 Sprain of right shoulder, subsequent encounter 0 05/11/2021 12/28/2021 Radiculopathy, cervical region 05/11/2021 1 Mass of right parotid gland 04/14/201910/24 Overview: 04/08/2019 FNA right parotid:Negative for malignant cells. Warthin's tumor. Suture reaction 01/05/2012 04/08/2015 documented as of this encounter (statuses as of 02/14/2022) [facility]2022 History of Past illness Narrative* Problem Noted Date Resolved Date Cervicalgia 05/11/2021 12/28/2021 Sprain of right shoulder, subsequent encounter 0 05/11/2021 12/28/2021 Radiculopathy, cervical region 05/11/2021 1 Mass of right parotid gland 04/14/201910/24 Overview: 04/08/2019 FNA right parotid:Negative for malignant cells. Warthin's tumor. Suture reaction 01/05/2012 04/08/2015 documented as of this encounter (statuses as of 04/03/2022) [facility]2022 History of Past illness Narrative* Problem Noted Date Resolved Date Cervicalgia 05/11/2021 12/28/2021 Sprain of right shoulder, subsequent encounter 0 05/11/2021 12/28/2021 Radiculopathy, cervical region 05/11/2021 1 Mass of right parotid gland 04/14/201910/24 Overview: 04/08/2019 FNA right parotid:Negative for malignant cells. Warthin's tumor. Suture reaction 01/05/2012 04/08/2015 documented as of this encounter (statuses as of 05/05/2022) [facility]2022 History of Past illness Narrative* Problem Noted Date Resolved Date Cervicalgia 05/11/2021 12/28/2021 Sprain of right shoulder, subsequent encounter 0 05/11/2021 12/28/2021 Radiculopathy, cervical region 05/11/2021 1 Mass of right parotid gland 04/14/201910/24 Overview: 04/08/2019 FNA right parotid:Negative for malignant cells. Warthin's tumor. Pyogenic inflammation of bone 09/25/2017 Suture reaction 01/05/2012 04/08/2015 Pain in limb 03/31/2011 05/10/2022 Chronic low back pain 04/18/2010 05/10/2022 documented as of this encounter (statuses as of 05/12/2022) [facility]20[facility] History of Past illness Narrative* Problem Noted Date Resolved Date Cervicalgia 05/11/2021 12/28/2021 Sprain of right shoulder, subsequent encounter 0 05/11/2021 12/28/2021 Radiculopathy, cervical region 05/11/2021 1 Mass of right parotid gland 04/14/201910/24 Overview: 04/08/2019 FNA right parotid:Negative for malignant cells. Warthin's tumor. Pyogenic inflammation of bone 09/25/2017 Suture reaction 01/05/2012 04/08/2015 Pain in limb 03/31/2011 05/10/2022 Chronic low back pain 04/18/2010 05/10/2022 documented as of this encounter (statuses as of 05/12/2022) [facility]2022 History of Past illness Narrative* Problem Noted Date Resolved Date Cervicalgia 05/11/2021 12/28/2021 Sprain of right shoulder, subsequent encounter 0 05/11/2021 12/28/2021 Radiculopathy, cervical region 05/11/2021 1 Mass of right parotid gland 04/14/201910/24 Overview: 04/08/2019 FNA right parotid:Negative for malignant cells. Warthin's tumor. Pyogenic inflammation of bone 09/25/2017 Suture reaction 01/05/2012 04/08/2015 Pain in limb 03/31/2011 05/10/2022 Chronic low back pain 04/18/2010 05/10/2022 documented as of this encounter (statuses as of 05/12/2022) [address]16-2022 History of Past illness Narrative* Problem Noted Date Resolved Date Cervicalgia 05/11/2021 12/28/2021 Sprain of right shoulder, subsequent encounter 0 05/11/2021 12/28/2021 Radiculopathy, cervical region 05/11/2021 1 Mass of right parotid gland 04/14/201910/24 Overview: 04/08/2019 FNA right parotid:Negative for malignant cells. Warthin's tumor. Pyogenic inflammation of bone 09/25/2017 Suture reaction 01/05/2012 04/08/2015 Pain in limb 03/31/2011 05/10/2022 Chronic low back pain 04/18/2010 05/10/2022 documented as of this encounter (statuses as of 05/12/2022) [address]16-2022 History of Past illness Narrative* Problem Noted Date Resolved Date Cervicalgia 05/11/2021 12/28/2021 Sprain of right shoulder, subsequent encounter 0 05/11/2021 12/28/2021 Radiculopathy, cervical region 05/11/2021 1 Mass of right parotid gland 04/14/201910/24 Overview: 04/08/2019 FNA right parotid:Negative for malignant cells. Warthin's tumor. Pyogenic inflammation of bone 09/25/2017 Suture reaction 01/05/2012 04/08/2015 Pain in limb 03/31/2011 05/10/2022 Chronic low back pain 04/18/2010 05/10/2022 documented as of this encounter (statuses as of 05/12/2022) [facility]2022 History of Past illness Narrative* Problem Noted Date Resolved Date Cervicalgia 05/11/2021 12/28/2021 Sprain of right shoulder, subsequent encounter 0 05/11/2021 12/28/2021 Radiculopathy, cervical region 05/11/2021 1 Mass of right parotid gland 04/14/201910/24 Overview: 04/08/2019 FNA right parotid:Negative for malignant cells. Warthin's tumor. Pyogenic inflammation of bone 09/25/2017 Suture reaction 01/05/2012 04/08/2015 Pain in limb 03/31/2011 05/10/2022 Chronic low back pain 04/18/2010 05/10/2022 documented as of this encounter (statuses as of 05/16/2022) [facility]16-2022 History of Past illness Narrative* Problem Noted Date Resolved Date Cervicalgia 05/11/2021 12/28/2021 Sprain of right shoulder, subsequent encounter 0 05/11/2021 12/28/2021 Radiculopathy, cervical region 05/11/2021 1 Mass of right parotid gland 04/14/201910/24 Overview: 04/08/2019 FNA right parotid:Negative for malignant cells. Warthin's tumor. Pyogenic inflammation of bone 09/25/2017 Suture reaction 01/05/2012 04/08/2015 Pain in limb 03/31/2011 05/10/2022 Chronic low back pain 04/18/2010 05/10/2022 documented as of this encounter (statuses as of 06/09/2022) [facility]2022 History of Past illness Narrative* Problem Noted Date Resolved Date Cervicalgia 05/11/2021 12/28/2021 Sprain of right shoulder, subsequent encounter 0 05/11/2021 12/28/2021 Radiculopathy, cervical region 05/11/2021 1 Mass of right parotid gland 04/14/201910/24 Overview: 04/08/2019 FNA right parotid:Negative for malignant cells. Warthin's tumor. Pyogenic inflammation of bone 09/25/2017 Suture reaction 01/05/2012 04/08/2015 Pain in limb 03/31/2011 05/10/2022 Chronic low back pain 04/18/2010 05/10/2022 documented as of this encounter (statuses as of 06/15/2022) [facility]2022 History of Past illness Narrative* Problem Noted Date Resolved Date Cervicalgia 05/11/2021 12/28/2021 Sprain of right shoulder, subsequent encounter 0 05/11/2021 12/28/2021 Radiculopathy, cervical region 05/11/2021 1 Mass of right parotid gland 04/14/201910/24 Overview: 04/08/2019 FNA right parotid:Negative for malignant cells. Warthin's tumor. Pyogenic inflammation of bone 09/25/2017 Suture reaction 01/05/2012 04/08/2015 Pain in limb 03/31/2011 05/10/2022 Chronic low back pain 04/18/2010 05/10/2022 documented as of this encounter (statuses as of 06/17/2022) [facility]2022 History of Past illness Narrative* Problem Noted Date Resolved Date Cervicalgia 05/11/2021 12/28/2021 Sprain of right shoulder, subsequent encounter 0 05/11/2021 12/28/2021 Radiculopathy, cervical region 05/11/2021 1 Mass of right parotid gland 04/14/201910/24 Overview: 04/08/2019 FNA right parotid:Negative for malignant cells. Warthin's tumor. Pyogenic inflammation of bone 09/25/2017 Suture reaction 01/05/2012 04/08/2015 Pain in limb 03/31/2011 05/10/2022 Chronic low back pain 04/18/2010 05/10/2022 documented as of this encounter (statuses as of 07/01/2022) [facility]2022 History of Past illness Narrative* Problem Noted Date Resolved Date Cervicalgia 05/11/2021 12/28/2021 Sprain of right shoulder, subsequent encounter 0 05/11/2021 12/28/2021 Radiculopathy, cervical region 05/11/2021 1 Mass of right parotid gland 04/14/201910/24 Overview: 04/08/2019 FNA right parotid:Negative for malignant cells. Warthin's tumor. Pyogenic inflammation of bone 09/25/2017 Suture reaction 01/05/2012 04/08/2015 Pain in limb 03/31/2011 05/10/2022 Chronic low back pain 04/18/2010 05/10/2022 documented as of this encounter (statuses as of 07/03/2022) [facility]2022 History of Past illness Narrative* Problem Noted Date Resolved Date Cervicalgia 05/11/2021 12/28/2021 Sprain of right shoulder, subsequent encounter 0 05/11/2021 12/28/2021 Radiculopathy, cervical region 05/11/2021 1 Mass of right parotid gland 04/14/201910/24 Overview: 04/08/2019 FNA right parotid:Negative for malignant cells. Warthin's tumor. Pyogenic inflammation of bone 09/25/2017 Suture reaction 01/05/2012 04/08/2015 Pain in limb 03/31/2011 05/10/2022 Chronic low back pain 04/18/2010 05/10/2022 documented as of this encounter (statuses as of 07/04/2022) [facility]2022 History of Past illness Narrative* Problem Noted Date Resolved Date Cervicalgia 05/11/2021 12/28/2021 Sprain of right shoulder, subsequent encounter 0 05/11/2021 12/28/2021 Radiculopathy, cervical region 05/11/2021 1 Mass of right parotid gland 04/14/201910/24 Overview: 04/08/2019 FNA right parotid:Negative for malignant cells. Warthin's tumor. Pyogenic inflammation of bone 09/25/2017 Suture reaction 01/05/2012 04/08/2015 Pain in limb 03/31/2011 05/10/2022 Chronic low back pain 04/18/2010 05/10/2022 documented as of this encounter (statuses as of 07/15/2022) [facility]2022 History of Past illness Narrative* Problem Noted Date Resolved Date Cervicalgia 05/11/2021 12/28/2021 Sprain of right shoulder, subsequent encounter 0 05/11/2021 12/28/2021 Radiculopathy, cervical region 05/11/2021 1 Mass of right parotid gland 04/14/201910/24 Overview: 04/08/2019 FNA right parotid:Negative for malignant cells. Warthin's tumor. Pyogenic inflammation of bone 09/25/2017 Suture reaction 01/05/2012 04/08/2015 Pain in limb 03/31/2011 05/10/2022 Chronic low back pain 04/18/2010 05/10/2022 documented as of this encounter (statuses as of 07/25/2022) [facility] History of Past illness Narrative* Problem Noted Date Resolved Date Cervicalgia 05/11/2021 12/28/2021 Sprain of right shoulder, subsequent encounter 0 05/11/2021 12/28/2021 Radiculopathy, cervical region 05/11/2021 1 Mass of right parotid gland 04/14/201910/24 Overview: 04/08/2019 FNA right parotid:Negative for malignant cells. Warthin's tumor. Pyogenic inflammation of bone 09/25/2017 Suture reaction 01/05/2012 04/08/2015 Pain in limb 03/31/2011 05/10/2022 Chronic low back pain 04/18/2010 05/10/2022 documented as of this encounter (statuses as of 07/25/2022) [facility] History of Past illness Narrative* Problem Noted Date Resolved Date Cervicalgia 05/11/2021 12/28/2021 Sprain of right shoulder, subsequent encounter 0 05/11/2021 12/28/2021 Radiculopathy, cervical region 05/11/2021 1 Mass of right parotid gland 04/14/201910/24 Overview: 04/08/2019 FNA right parotid:Negative for malignant cells. Warthin's tumor. Pyogenic inflammation of bone 09/25/2017 Suture reaction 01/05/2012 04/08/2015 Pain in limb 03/31/2011 05/10/2022 Chronic low back pain 04/18/2010 05/10/2022 documented as of this encounter (statuses as of 09/12/2022) [facility] History of Past illness Narrative* Problem Noted Date Resolved Date Cervicalgia 05/11/2021 12/28/2021 Sprain of right shoulder, subsequent encounter 0 05/11/2021 12/28/2021 Radiculopathy, cervical region 05/11/2021 1 Mass of right parotid gland 04/14/201910/24 Overview: 04/08/2019 FNA right parotid:Negative for malignant cells. Warthin's tumor. Pyogenic inflammation of bone 09/25/2017 Suture reaction 01/05/2012 04/08/2015 Pain in limb 03/31/2011 05/10/2022 Chronic low back pain 04/18/2010 05/10/2022 documented as of this encounter (statuses as of 09/14/2022) [facility] History of Past illness Narrative* Problem Noted Date Diagnosed Date Resolved Date Cervicalgia 05/11/2021 12/28/2021 Sprain of right shoulder, degroot bsequent encounter 05/11/2021 12/28/2021 Radiculopathy, cervical region 05/11/2021 12/28/2021 Mass of right parotid gland 04/14/2019 11/08/2021 Overview: 04/08/2019 FNA right parotid:Negative for malignant cells. Warthin's tumor. Pyogenic inflammation of bone 09/25/2017 05/10/2022 Suture reaction 01/05/2012 04/08/2015 Pain in limb 03/31/2011 05/10/2022 Chronic low back pain 04/18/20102022 documented as of this encounter (statuses as of 10/20/2022) [facility] History of Past illness Narrative* Problem Noted Date Diagnosed Date Resolved Date Cervicalgia 05/11/2021 12/28/2021 Sprain of right shoulder, degroot bsequent encounter 05/11/2021 12/28/2021 Radiculopathy, cervical region 05/11/2021 12/28/2021 Mass of right parotid gland 04/14/2019 11/08/2021 Overview: 04/08/2019 FNA right parotid:Negative for malignant cells. Warthin's tumor. Pyogenic inflammation of bone 09/25/2017 05/10/2022 Suture reaction 01/05/2012 04/08/2015 Pain in limb 03/31/2011 05/10/2022 Chronic low back pain 04/18/20102022 documented as of this encounter (statuses as of 11/24/2022) [facility] History of Past illness Narrative* Problem Noted Date Diagnosed Date Resolved Date Cervicalgia 05/11/2021 12/28/2021 Sprain of right shoulder, degroot bsequent encounter 05/11/2021 12/28/2021 Radiculopathy, cervical region 05/11/2021 12/28/2021 Mass of right parotid gland 04/14/2019 11/08/2021 Overview: 04/08/2019 FNA right parotid:Negative for malignant cells. Warthin's tumor. Pyogenic inflammation of bone 09/25/2017 05/10/2022 Suture reaction 01/05/2012 04/08/2015 Pain in limb 03/31/2011 05/10/2022 Chronic low back pain 04/18/20102022 documented as of this encounter (statuses as of 11/24/2022) [facility] History of Past illness Narrative* Problem Noted Date Diagnosed Date Resolved Date Cervicalgia 05/11/2021 12/28/2021 Sprain of right shoulder, degroot bsequent encounter 05/11/2021 12/28/2021 Radiculopathy, cervical region 05/11/2021 12/28/2021 Mass of right parotid gland 04/14/2019 11/08/2021 Overview: 04/08/2019 FNA right parotid:Negative for malignant cells. Warthin's tumor. Pyogenic inflammation of bone 09/25/2017 05/10/2022 Suture reaction 01/05/2012 04/08/2015 Pain in limb 03/31/2011 05/10/2022 Chronic low back pain 04/18/20102022 documented as of this encounter (statuses as of 11/28/2022) [facility] History of Past illness Narrative* Problem Noted Date Diagnosed Date Resolved Date Cervicalgia 05/11/2021 12/28/2021 Sprain of right shoulder, degroot bsequent encounter 05/11/2021 12/28/2021 Radiculopathy, cervical region 05/11/2021 12/28/2021 Mass of right parotid gland 04/14/2019 11/08/2021 Overview: 04/08/2019 FNA right parotid:Negative for malignant cells. Warthin's tumor. Pyogenic inflammation of bone 09/25/2017 05/10/2022 Suture reaction 01/05/2012 04/08/2015 Pain in limb 03/31/2011 05/10/2022 Chronic low back pain 04/18/20102022 documented as of this encounter (statuses as of 01/28/2023) [facility] History of Past illness Narrative* Problem Noted Date Diagnosed Date Resolved Date Cervicalgia 05/11/2021 12/28/2021 Sprain of right shoulder, degroot bsequent encounter 05/11/2021 12/28/2021 Radiculopathy, cervical region 05/11/2021 12/28/2021 Mass of right parotid gland 04/14/2019 11/08/2021 Overview: 04/08/2019 FNA right parotid:Negative for malignant cells. Warthin's tumor. Pyogenic inflammation of bone 09/25/2017 05/10/2022 Suture reaction 01/05/2012 04/08/2015 Pain in limb 03/31/2011 05/10/2022 Chronic low back pain 04/18/20102022 documented as of this encounter (statuses as of 01/28/2023) [facility] History of Past illness Narrative* Problem Noted Date Diagnosed Date Resolved Date Cervicalgia 05/11/2021 12/28/2021 Sprain of right shoulder, degroot bsequent encounter 05/11/2021 12/28/2021 Radiculopathy, cervical region 05/11/2021 12/28/2021 Mass of right parotid gland 04/14/2019 11/08/2021 Overview: 04/08/2019 FNA right parotid:Negative for malignant cells. Warthin's tumor. Pyogenic inflammation of bone 09/25/2017 05/10/2022 Suture reaction 01/05/2012 04/08/2015 Pain in limb 03/31/2011 05/10/2022 Chronic low back pain 04/18/20102022 documented as of this encounter (statuses as of 01/28/2023) [facility] History of Past illness Narrative* Problem Noted Date Diagnosed Date Resolved Date Cervicalgia 05/11/2021 12/28/2021 Sprain of right shoulder, degroot bsequent encounter 05/11/2021 12/28/2021 Radiculopathy, cervical region 05/11/2021 12/28/2021 Mass of right parotid gland 04/14/2019 11/08/2021 Overview: 04/08/2019 FNA right parotid:Negative for malignant cells. Warthin's tumor. Pyogenic inflammation of bone 09/25/2017 05/10/2022 Suture reaction 01/05/2012 04/08/2015 Pain in limb 03/31/2011 05/10/2022 Chronic low back pain 04/18/20102022 documented as of this encounter (statuses as of 01/28/2023) [place] [address] History of Past illness Narrative* Problem Noted Date Diagnosed Date Resolved Date Cervicalgia 05/11/2021 12/28/2021 Sprain of right shoulder, degroot bsequent encounter 05/11/2021 12/28/2021 Radiculopathy, cervical region 05/11/2021 12/28/2021 Mass of right parotid gland 04/14/2019 11/08/2021 Overview: 04/08/2019 FNA right parotid:Negative for malignant cells. Warthin's tumor. Pyogenic inflammation of bone 09/25/2017 05/10/2022 Suture reaction 01/05/2012 04/08/2015 Pain in limb 03/31/2011 05/10/2022 Chronic low back pain 04/18/20102022 documented as of this encounter (statuses as of 01/28/2023) [facility] History of Past illness Narrative* Problem Noted Date Diagnosed Date Resolved Date Cervicalgia 05/11/2021 12/28/2021 Sprain of right shoulder, degroot bsequent encounter 05/11/2021 12/28/2021 Radiculopathy, cervical region 05/11/2021 12/28/2021 Mass of right parotid gland 04/14/2019 11/08/2021 Overview: 04/08/2019 FNA right parotid:Negative for malignant cells. Warthin's tumor. Pyogenic inflammation of bone 09/25/2017 05/10/2022 Suture reaction 01/05/2012 04/08/2015 Pain in limb 03/31/2011 05/10/2022 Chronic low back pain 04/18/20102022 documented as of this encounter (statuses as of 01/28/2023) [facility] History of Past illness Narrative* Problem Noted Date Diagnosed Date Resolved Date Cervicalgia 05/11/2021 12/28/2021 Sprain of right shoulder, degroot bsequent encounter 05/11/2021 12/28/2021 Radiculopathy, cervical region 05/11/2021 12/28/2021 Mass of right parotid gland 04/14/2019 11/08/2021 Overview: 04/08/2019 FNA right parotid:Negative for malignant cells. Warthin's tumor. Pyogenic inflammation of bone 09/25/2017 05/10/2022 Suture reaction 01/05/2012 04/08/2015 Pain in limb 03/31/2011 05/10/2022 Chronic low back pain 04/18/20102022 documented as of this encounter (statuses as of 02/24/2023) [facility]02-16-2022 History of Past illness Narrative* Problem Noted Date Diagnosed Date Resolved Date Cervicalgia 05/11/2021 12/28/2021 Sprain of right shoulder, degroot bsequent encounter 05/11/2021 12/28/2021 Radiculopathy, cervical region 05/11/2021 12/28/2021 Mass of right parotid gland 04/14/2019 11/08/2021 Overview: 04/08/2019 FNA right parotid:Negative for malignant cells. Warthin's tumor. Pyogenic inflammation of bone 09/25/2017 05/10/2022 Suture reaction 01/05/2012 04/08/2015 Pain in limb 03/31/2011 05/10/2022 Chronic low back pain 04/18/20102022 documented as of this encounter (statuses as of 02/26/2023) [facility] History of Past illness Narrative* Problem Noted Date Diagnosed Date Resolved Date Cervicalgia 05/11/2021 12/28/2021 Sprain of right shoulder, degroot bsequent encounter 05/11/2021 12/28/2021 Radiculopathy, cervical region 05/11/2021 12/28/2021 Mass of right parotid gland 04/14/2019 11/08/2021 Overview: 04/08/2019 FNA right parotid:Negative for malignant cells. Warthin's tumor. Pyogenic inflammation of bone 09/25/2017 05/10/2022 Suture reaction 01/05/2012 04/08/2015 Pain in limb 03/31/2011 05/10/2022 Chronic low back pain 04/18/20102022 documented as of this encounter (statuses as of 02/27/2023) [facility] History of Past illness Narrative* Problem Noted Date Diagnosed Date Resolved Date Cervicalgia 05/11/2021 12/28/2021 Sprain of right shoulder, degroot bsequent encounter 05/11/2021 12/28/2021 Radiculopathy, cervical region 05/11/2021 12/28/2021 Mass of right parotid gland 04/14/2019 11/08/2021 Overview: 04/08/2019 FNA right parotid:Negative for malignant cells. Warthin's tumor. Pyogenic inflammation of bone 09/25/2017 05/10/2022 Suture reaction 01/05/2012 04/08/2015 Pain in limb 03/31/2011 05/10/2022 Chronic low back pain 04/18/20102022 documented as of this encounter (statuses as of 03/06/2023) [facility] History of Past illness Narrative* Problem Noted Date Diagnosed Date Resolved Date Cervicalgia 05/11/2021 12/28/2021 Sprain of right shoulder, degroot bsequent encounter 05/11/2021 12/28/2021 Radiculopathy, cervical region 05/11/2021 12/28/2021 Mass of right parotid gland 04/14/2019 11/08/2021 Overview: 04/08/2019 FNA right parotid:Negative for malignant cells. Warthin's tumor. Pyogenic inflammation of bone 09/25/2017 05/10/2022 Suture reaction 01/05/2012 04/08/2015 Pain in limb 03/31/2011 05/10/2022 Chronic low back pain 04/18/20102022 documented as of this encounter (statuses as of 03/07/2023) [facility]08-[facility]21 Miscellaneous Notes* Telephone Encounter - Delia Bates LPN - 11/03/2020 11:26 AM EDT Phone call placed, patient will call [phone] to schedule bone density order is in place. Delia Bates LPN [facility] Miscellaneous Notes* Telephone Encounter - Breann Mace LPN - 11/01/2020 3:28 PM EDT Prior Authorization has been completed online at [employer] for [employer], will await response. NAVARRO- [id number] Please keep encounter open until final decision has been received and documented from insurance company. Kiah Mace LPN 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 Warthin's tumor. Suture reaction 01/05/2012 04/08/2015 documented as of this encounter (statuses as of 11/08/2021) 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 Warthin's tumor. Suture reaction 01/05/2012 04/08/2015 documented as of this encounter (statuses as of 11/17/2021) 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 Warthin's tumor. Suture reaction 01/05/2012 04/08/2015 documented as of this encounter (statuses as of 11/22/2021) 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 Warthin's tumor. Suture reaction 01/05/2012 04/08/2015 documented as of this encounter (statuses as of 11/23/2021) [place] [address] History of Past illness Narrative* Problem Noted Date Resolved Date Mass of right parotid gland 04/14/201910/24 Overview: 04/08/2019 FNA right parotid:Negative for malignant cells. Warthin's tumor. Suture reaction 01/05/2012 04/08/2015 documented as of this encounter (statuses as of 11/30/2021) [address]20-2020 History of Past illness Narrative* Problem Noted Date Resolved Date Mass of right parotid gland 04/14/201910/24 Overview: 04/08/2019 FNA right parotid:Negative for malignant cells. Warthin's tumor. Suture reaction 01/05/2012 04/08/2015 documented as of this encounter (statuses as of 12/02/2021) [place] [address] History of Past illness Narrative* Problem Noted Date Resolved Date Mass of right parotid gland 04/14/201910/24 Overview: 04/08/2019 FNA right parotid:Negative for malignant cells. Warthin's tumor. Suture reaction 01/05/2012 04/08/2015 documented as of this encounter (statuses as of 12/03/2021) [place] [address] History of Past illness Narrative* Problem Noted Date Resolved Date Mass of right parotid gland 04/14/201910/24 Overview: 04/08/2019 FNA right parotid:Negative for malignant cells. Warthin's tumor. Suture reaction 01/05/2012 04/08/2015 documented as of this encounter (statuses as of 12/12/2021) [address]20-2020 History of Past illness Narrative* Problem Noted Date Resolved Date Mass of right parotid gland 04/14/201910/24 Overview: 04/08/2019 FNA right parotid:Negative for malignant cells. Warthin's tumor. Suture reaction 01/05/2012 04/08/2015 documented as of this encounter (statuses as of 12/21/2021) 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 Warthin's tumor. Suture reaction 01/05/2012 04/08/2015 documented as of this encounter (statuses as of 12/24/2021) 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 Warthin's tumor. Suture reaction 01/05/2012 04/08/2015 documented as of this encounter (statuses as of 12/26/2021) [address]12-2012 History of Past illness Narrative* Problem Noted Date Resolved Date Suture reaction 01/05/2012 04/08/2015 documented as of this encounter (statuses as of 07/13/2021) [address]12-2012 History of Past illness Narrative* Problem Noted Date Resolved Date Suture reaction 01/05/2012 04/08/2015 documented as of this encounter (statuses as of 07/26/2021) [facility] History of Past illness Narrative* Problem Noted Date Resolved Date Suture reaction 01/05/2012 04/08/2015 documented as of this encounter (statuses as of 08/02/2021) [facility] History of Past illness Narrative* Problem Noted Date Resolved Date Suture reaction 01/05/2012 04/08/2015 documented as of this encounter (statuses as of 08/05/2021) [facility] History of Past illness Narrative* Problem Noted Date Resolved Date Suture reaction 01/05/2012 04/08/2015 documented as of this encounter (statuses as of 08/08/2021) [address]12-2012 History of Past illness Narrative* Problem Noted Date Resolved Date Suture reaction 01/05/2012 04/08/2015 documented as of this encounter (statuses as of 08/08/2021) [address]12-2012 History of Past illness Narrative* Problem Noted Date Resolved Date Suture reaction 01/05/2012 04/08/2015 documented as of this encounter (statuses as of 08/30/2021) [facility] History of Past illness Narrative* Problem Noted Date Resolved Date Suture reaction 01/05/2012 04/08/2015 documented as of this encounter (statuses as of 09/16/2021) [facility] History of Past illness Narrative* Problem Noted Date Resolved Date Suture reaction 01/05/2012 04/08/2015 documented as of this encounter (statuses as of 09/19/2021) [facility] Diagnosis Depression with anxiety Dysthymic disorder [facility] Diagnosis 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 manifestations (HCC)- Primary Type II or unspecified type diabetes mellitus with neurological manifestations, not stated as uncontrolled [facility] this encounter [facility] Diagnosis 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 manifestations (HCC)- Primary Type II or unspecified type diabetes mellitus with neurological manifestations, not stated as uncontrolled Hyperlipidemia with target LDL less than 70 Other and unspecified hyperlipidemia [facility] Diagnosis 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 manifestations (HCC)- Primary Type II or unspecified type diabetes mellitus with neurological manifestations, not stated as uncontrolled Hyperlipidemia with target LDL less than 70 Other and unspecified hyperlipidemia Radiculopathy, cervical region Brachial neuritis or radiculitis nos Moderate persistent asthma, uncomplicated Unspecified asthma Essential tremor Essential and other specified forms of tremor Depression with anxiety Dysthymic disorder Fibromyalgia Mylagia and myositis, unspecified Tobacco dependence Tobacco use disorder [facility] Diagnosis Lower abdominal pain- Primary Abdominal pain, other specified site 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 manifestations (HCC) Type II or unspecified type diabetes mellitus with neurological manifestations, not stated as uncontrolled Dysuria [facility] this encounter [facility] Diagnosis 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 manifestations (HCC)- Primary Type II or unspecified type diabetes mellitus with neurological manifestations, not stated as uncontrolled Hyperlipidemia with target LDL less than 70 Other and unspecified hyperlipidemia Moderate persistent asthma, uncomplicated Unspecified asthma Tobacco dependence Tobacco use disorder Depression with anxiety Dysthymic disorder Radiculopathy, cervical region Brachial neuritis or radiculitis nos Fibromyalgia Mylagia and myositis, unspecified Essential tremor Essential and other specified forms of tremor Stage 3a chronic kidney disease (HCC) Osteoporosis, unspecified osteoporosis type, unspecified pathological fracture presence Chronic rhinitis Chronic wrist pain, right CMC DJD(carpometacarpal degenerative joint disease), localized primary, right Generalized abdominal pressure Abdominal pain, generalized Right wrist pain Pain in joint, forearm [facility] this encounter [facility] Diagnosis Moderate persistent asthma, uncomplicated Unspecified asthma [facility] this [facility] Diagnosis 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 manifestations (HCC)- Primary Type II or unspecified type diabetes mellitus with neurological manifestations, not stated as uncontrolled Bloating Flatulence, eructation, and gas pain Nausea Nausea alone [facility] this encounter [facility] Diagnosis Epigastric pain- Primary Abdominal pain, epigastric Bloating Flatulence, eructation, and gas pain documented [facility] this encounter [facility] Diagnosis 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 manifestations (HCC) Type II or unspecified type diabetes mellitus with neurological manifestations, not stated as uncontrolled Bloating Flatulence, eructation, and gas pain Nausea Nausea alone documented [facility] this encounter [facility] Diagnosis Screening for colon cancer- Primary Special screening for malignant neoplasms, colon Epigastric pain Abdominal pain, epigastric Bloating Flatulence, eructation, and gas pain Nausea Nausea alone documented in this encounter [facility] Diagnosis Right knee pain, unspecified chronicity- Primary documented [facility] this [facility] Diagnosis Constipation, unspecified constipation type- Primary Screening for colon cancer Special screening for malignant neoplasms, colon Epigastric pain Abdominal pain, epigastric Bloating Flatulence, eructation, and gas pain Nausea Nausea alone [facility] Diagnosis Primary osteoarthritis of right knee- Primary Primary localized osteoarthrosis, lower leg Acute pain of right knee Hamstring strain, left, initial encounter [facility] this [facility] Diagnosis Chronic constipation- Primary Unspecified constipation Epigastric pain Abdominal pain, epigastric Pelvic pain Moderate persistent asthma, uncomplicated Unspecified asthma documented in this encounter [facility] Diagnosis Hyperlipidemia with target LDL less than 70 Other and unspecified hyperlipidemia [facility] in this encounter [facility] Diagnosis Epigastric pain Abdominal pain, epigastric documented in this encounter [facility] Diagnosis Depression with anxiety Dysthymic disorder [facility] this encounter [facility] Diagnosis Tobacco abuse Tobacco use disorder [facility] this [facility] Diagnosis No-show for appointment- Primary [facility] this [facility] Diagnosis Epigastric pain- Primary Abdominal pain, epigastric Chronic constipation Unspecified constipation Moderate persistent asthma, uncomplicated Unspecified asthma Tobacco abuse Tobacco use disorder Hyperlipidemia with target LDL less than 70 Other and unspecified hyperlipidemia 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 manifestations (HCC) Type II or unspecified type diabetes mellitus with neurological manifestations, not stated as uncontrolled Stage 3a chronic kidney disease (HCC) Essential tremor Essential and other specified forms of tremor Spinal stenosis of lumbar region without neurogenic claudication Spinal stenosis, lumbar region, without neurogenic claudication Chronic bilateral low back pain without sciatica Fibromyalgia Mylagia and myositis, unspecified Depression with anxiety Dysthymic disorder Need for influenza vaccination Need for prophylactic vaccination and inoculation against influenza Encounter for screening mammogram for malignant neoplasm of breast Other screening mammogram Current use of proton pump inhibitor Encounter for long-term (current) use of other medications documented [facility] this encounter [facility] Diagnosis Tubular adenoma- Primary Benign neoplasm of unspecified site Serrated polyp of colon Dysplastic colon polyp Benign neoplasm of colon documented in this encounter [facility] Diagnosis Chronic constipation Unspecified constipation documented [facility] this encounter [facility] Diagnosis Left wrist pain- Primary Pain in joint, forearm documented [facility] this [facility] Diagnosis Inconclusive mammogram- Primary documented [facility] this [facility] Diagnosis Adductor tendonitis- Primary Other synovitis and tenosynovitis documented in this encounter [facility] Diagnosis Adductor tendonitis- Primary Other synovitis and tenosynovitis [facility] Diagnosis Bronchitis- Primary Bronchitis, not specified as acute or chronic documented [facility] this encounter [facility] Diagnosis Acute cough- Primary Flu-like symptoms Other general symptoms Exposure to COVID-19 virus Lower respiratory infection Other diseases of respiratory system, not elsewhere classified documented in this encounter [facility] note* Diagnosis COVID-19- Primary Acute cough documented in this encounter [facility] note* Diagnosis Closed head injury with concussion, without loss of consciousness, sequela (HCC)- Primary Neck sprain, initial encounter documented in this encounter [facility] note* Diagnosis Patient left without being seen- Primary Surgical or other procedure not carried out because of patient's decision documented in this encounter [facility] note* Diagnosis BPPV (benign paroxysmal positional vertigo), unspecified laterality- Primary Closed head injury with concussion, without loss of consciousness, sequela (HCC) Depression, recurrent (HCC) Major depressive disorder, recurrent episode, unspecified documented in this encounter [facility] note* Diagnosis 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 manifestations (HCC) Type II or unspecified type diabetes mellitus with neurological manifestations, not stated as uncontrolled documented in this encounter [facility] note* Diagnosis Encounter for screening mammogram for malignant neoplasm of breast Other screening mammogram documented in this encounter [facility] note* Diagnosis Epigastric pain Abdominal pain, epigastric documented in this encounter [facility] note* Diagnosis Inconclusive mammogram documented in this encounter [facility] note* Diagnosis Constipation, unspecified constipation type- Primary documented in this encounter [facility] for referral (narrative)* Diagnostic Procedure Only (Routine) - Pending Review Specialty Diagnoses / Procedures Referred By Contac t Referred To Contact XR IMAGING Diagnoses Chronic wrist pain, right CMC DJD(carpometacarpal degenerative joint disease), localized primary, right Procedures XR WRIST GENERAL 3V PA/LAT/OBL RIGHT RADEX WRIST COMPLETE MINIMUM 3 VIEWS Ashli Silva PA-C [address] [place] [address] Xr Imaging Referral ID Status Reason Start Date Expiration Date Visits Requested Visits Authorized [id number] Pending Review Auto-Generat ed Referral 11/08/2021 12/08/2022 1 1 * Consult, Test, Treat (Routine) - Authorized Specialty Diagnoses / Procedures Referred By Contac t Referred To Contact Neurology Diagnoses Essential tremor Procedures CONSULT TO NEUROLOGY OFFICE/OUTPATIENT NEW HIGH MDM 60-74 MINUTES Ashli Silva PA-C [address] [place] [address] Referral ID Status Reason Start Date Expiration Date Visits Requested Visits Authorized [id number] Authorized PCP Requested Referral 11/08/2021 11/08/2022 1 1 [facility] for referral (narrative)* Diagnostic Procedure Only (Routine) - Authorized Specialty Diagnoses / Procedures Referred By Racquel sorto Referred To Contact MOLECULAR & FUNCTIONAL IMAGING Diagnoses 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 manifestations (HCC) Bloating Nausea Procedures NM GASTRIC EMPTYING SOLID GASTRIC EMPTYING STUDY Ashli Silva PA-C [address] [place] [address] Molecular & Functional Imaging [address] [place] [address] Referral ID Status Reason Start Date Expiration Date Visits Requested Visits Authorized [id number] Authorized Auto-Generat ed Referral 11/21/2021 12/21/2022 1 1 [facility] for referral (narrative)* Diagnostic Procedure Only (Routine) - Closed Specialty Diagnoses / Procedures Referred By Racquel sorto Referred To Contact MOLECULAR & FUNCTIONAL IMAGING Diagnoses 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 manifestations (HCC) Bloating Nausea Procedures NM GASTRIC EMPTYING SOLID GASTRIC EMPTYING STUDY Ashli Silva PA-C [address] [place] [address] Molecular & Functional Imaging [address] [place] [address] Referral ID Status Reason Start Date Expiration Date V isits Requested Visits Authorized [id number] Closed Auto-Generate d Referral 11/21/2021 12/21/2022 1 1 [facility] for referral (narrative)* Diagnostic Procedure Only (Routine) - Pending Review Specialty Diagnoses / Procedures Referred By Contac t Referred To Contact XR IMAGING Diagnoses Right knee pain, unspecified chronicity Procedures XR KNEE GENERAL 4V AP BOTH/PA BOTH/LAT/MERC RIGHT RADIOLOGIC EXAM KNEE COMPLETE 4/MORE VIEWS Marcus Barnse MD [address] [facility] [place] [address] Xr Imaging Referral ID Status Reason Start Date Expiration Date Visits Requested Visits Authorized [id number] Pending Review Auto-Generat ed Referral 12/21/2021 01/20/2023 1 1 [facility] for referral (narrative)* Outpatient Procedure (Routine) - Authorized Specialty Diagnoses / Procedures [facility] Diagnoses Constipation, unspecified constipation type Procedures COLONOSCOPY DIAGNOSTIC COLONOSCOPY FLX DX W/COLLJ SPEC WHEN Deepa Jefferson MD [address] [facility] [place] [address] [facility] [address] [place] [address] Referral ID Status Reason Start Date Expiration Date Visits Requested Visits Authorized [id number] Authorized Auto-Generat ed Referral 12/20/2021 12/20/2022 1 1 T [facility] for referral (narrative)* Diagnostic Procedure Only (Routine) - Closed Specialty Diagnoses / Procedures Referred By Contac t Referred To Contact XR IMAGING Diagnoses Chronic constipation Pelvic pain Procedures XR ABDOMEN 2V ROUTINE SUPINE W UPRIGHT/DECUB/CTL RADIOLOGIC EXAM ABDOMEN 2 VIEWS Ashli Silva PA-C [address] [place] [address] Xr Imaging Referral ID Status Reason Start Date Expiration Date V isits Requested Visits Authorized [id number] Closed Auto-Generate d Referral 01/05/2022 02/04/2023 1 1 * Diagnostic Procedure Only (Routine) - Closed Specialty Diagnoses / Procedures Referred By Racquel sorto Referred To Contact XR IMAGING Diagnoses Chronic constipation Pelvic pain Procedures XR CHEST 1V FRONTAL RADIOLOGIC EXAM CHEST SINGLE VIEW Ashli Silva PA-C [address] [place] [address] Xr Imaging Referral ID Status Reason Start Date Expiration Date V isits Requested Visits Authorized [id number] Closed Auto-Generate d Referral 01/05/2022 02/04/2023 1 1 [facility] for referral (narrative)* Diagnostic Procedure Only (Routine) - Pending Review Specialty Diagnoses / Procedures Referred By Racquel sorto Referred To Contact BR IMAGING Diagnoses Encounter for screening mammogram for malignant neoplasm of breast Procedures ZAKI SCREENING SCREENING MAMMOGRAPHY BI 2-VIEW BREAST INC CAD Ashli Silva PA-C [address] [place] [address] [facility] [address] [place] [address] Referral ID Status Reason Start Date Expiration Date Visits Requested Visits Authorized [id number] Pending Review Auto-Generat ed Referral 03/15/2023 1 1 [facility] for referral (narrative)* Diagnostic Procedure Only (Routine) - Authorized Specialty Diagnoses / Procedures Referred By Racquel sorto Referred To Contact BR IMAGING Diagnoses Inconclusive mammogram Procedures US BREAST LTD RT US BREAST UNI REAL TIME WITH IMAGE LIMITED Ashli Silva PA-C [address] [place] [address] [facility] [address] [place] [address] Referral ID Status Reason Start Date Expiration Date Visits Requested Visits Authorized [id number] Authorized Auto-Generat ed Referral 05/11/2022 06/10/2023 1 1 * Diagnostic Procedure Only (Routine) - Authorized Specialty Diagnoses / Procedures Referred By Racquel t Referred To Contact BR IMAGING Diagnoses Inconclusive mammogram Procedures US BREAST LTD LT US BREAST UNI REAL TIME WITH IMAGE LIMITED Ashli Silva PA-C [address] [place] [address] [facility] [address] [place] [address] Referral ID Status Reason Start Date Expiration Date Visits Requested Visits Authorized [id number] Authorized Auto-Generat ed Referral 05/11/2022 06/10/2023 1 1 * Diagnostic Procedure Only (Routine) - Authorized Specialty Diagnoses / Procedures Referred By Racquel t Referred To Contact BR IMAGING Diagnoses Inconclusive mammogram Procedures ZAKI DIAGNOSTIC BILAT DIAGNOSTIC MAMMOGRAPHY COMPUTER-AIDED DETCJ BI Ashli Silva PA-C [address] [place] [address] [facility] [address] [place] [address] Referral ID Status Reason Start Date Expiration Date Visits Requested Visits Authorized [id number] Authorized Auto-Generat ed Referral 05/11/2022 06/10/2023 1 1 [facility] for referral (narrative)* Diagnostic Procedure Only (Routine) - Closed Specialty Diagnoses / Procedures Referred By Racquel sorto Referred To Contact XR IMAGING Diagnoses Closed head injury with concussion, without loss of consciousness, sequela (HCC) Neck sprain, initial encounter Procedures XR SKULL 2V AP/LAT RADIOLOGIC EXAMINATION SKULL 4< VIEWS Ashli Silva PA-C [address] [place] [address] Xr Imaging Referral ID Status Reason Start Date Expiration Date V isits Requested Visits Authorized [id number] Closed Auto-Generate d Referral 07/14/2022 08/13/2023 1 1 * Diagnostic Procedure Only (Routine) - Closed Specialty Diagnoses / Procedures Referred By Racquel t Referred To Contact XR IMAGING Diagnoses Closed head injury with concussion, without loss of consciousness, sequela (HCC) Neck sprain, initial encounter Procedures XR CERV OTHER 4V AP/LAT/OBL RADEX SPINE CERVICAL 4 OR 5 VIEWS Ashli Silva PA-C [address] [place] [address] Xr Imaging Referral ID Status Reason Start Date Expiration Date V isits Requested Visits Authorized [id number] Closed Auto-Generate d Referral 07/14/2022 08/13/2023 1 1 [facility] for referral (narrative)* Diagnostic Procedure Only (Routine) - Pending Review Specialty Diagnoses / Procedures Referred By Racquel sorto Referred To Contact XR IMAGING Diagnoses Bilateral hip pain Procedures XR HIP BILATERAL 5V PEL/AP/LAT EACH HIP RADEX HIPS BILATERAL WITH PELVIS MINIMUM 5 VIEWS Ashli Silva PA-C [address] [place] [address] Xr Imaging Referral ID Status Reason Start Date Expiration Date Visits Requested Visits Authorized [id number] Pending Review Auto-Generat ed Referral 09/12/2022 10/12/2023 1 1 [facility] for referral (narrative)* Diagnostic Procedure Only (Routine) - Closed Specialty Diagnoses / Procedures Referred By Racquel t Referred To Contact BR IMAGING Diagnoses Encounter for screening mammogram for malignant neoplasm of breast Procedures ZAKI SCREENING SCREENING MAMMOGRAPHY BI 2-VIEW BREAST INC CAD Ashli Silva PA-C [address] [place] [address] [facility] [address] [place] [address] Referral ID Status Reason Start Date Expiration Date V isits Requested Visits Authorized [id number] Closed Auto-Generate d Referral 02/13/2022 03/15/2023 1 1 [facility] for referral (narrative)* Diagnostic Procedure Only (Routine) - Closed Specialty Diagnoses / Procedures [facility] To Contact [facility] Diagnoses Inconclusive mammogram Procedures ZAKI DIAGNOSTIC BILAT DIAGNOSTIC MAMMOGRAPHY COMPUTER-AIDED DETCJ BI Ashli Silva PA-C [address] [place] [address] [facility] [address] [place] [address] Referral ID Status Reason Start Date Expiration Date V isits Requested Visits Authorized [id number] Closed Auto-Generate d Referral 05/11/2022 06/10/2023 1 1 [facility] for referral (narrative)* Outpatient Procedure (Routine) - Closed Specialty Diagnoses / Procedures [facility] Diagnoses Constipation, unspecified constipation type Procedures COLONOSCOPY DIAGNOSTIC COLONOSCOPY FLX DX W/COLLJ SPEC WHEN Deepa Jefferson MD [address] [facility] [address] [facility] [address] [place] [address] Referral ID Status Reason Start Date Expiration Date V isits Requested Visits Authorized [id number] Closed Auto-Generate d Referral 12/20/2021 12/20/2022 1 1 [facility] for visit Narrative* Diagnostic Procedure Only (Routine) - Closed Specialty Diagnoses / Procedures Referred By [facility] Referred To Contact BR IMAGING Diagnoses Encounter for screening mammogram for malignant neoplasm of breast Procedures ZAKI SCREENING SCREENING MAMMOGRAPHY BI 2-VIEW BREAST INC CAD Ashli Silva PA-C [address] [place] [address] [facility] [address] [place] [address] Referral ID Status Reason Start Date Expiration Date V isits Requested Visits Authorized [id number] Closed Auto-Generate d Referral 02/13/2022 03/15/2023 1 1 [facility] for visit Narrative* Diagnostic Procedure Only (Urgent) - Closed Specialty Diagnoses / Procedures Referred By Contac t Referred To Contact XR IMAGING Diagnoses Toe injury, left, initial encounter Procedures XR TOE AP/LAT/OBL LEFT RADEX TOE MINIMUM 2 VIEWS Nakul Bustos APRN.POLICY CHANGE CLERK [address] [place] [address] [place] [address] Referral ID Status Reason Start Date Expiration Date V isits Requested Visits Authorized [id number] Closed Auto-Generate d Referral 11/26/2022 12/26/2023 1 1 [facility] for visit Narrative* Diagnostic Procedure Only (Routine) - Closed Specialty Diagnoses / Procedures Referred By Contac t Referred To Contact BR IMAG[facility] Diagnoses Inconclusive mammogram Procedures ZAKI DIAGNOSTIC BILAT DIAGNOSTIC MAMMOGRAPHY COMPUTER-AIDED DETCJ BI Ashli Silva PA-C [address] [place] [address] [facility] [address] [place] [address] Referral ID Status Reason Start Date Expiration Date V isits Requested Visits Authorized [id number] Closed Auto-Generate d Referral 05/11/2022 06/10/2023 1 1 [facility] for visit Narrative* Outpatient Procedure (Routine) - Closed Specialty Diagnoses / Procedures Referred By Contac t Referred To Contact [facility] Diagnoses Constipation, unspecified constipation type Procedures COLONOSCOPY DIAGNOSTIC COLONOSCOPY FLX DX W/COLLJ SPEC WHEN PFRMD Deepa rBavo MD [address] [place] [address] [facility] [address] [place] [address] Referral ID Status Reason Start Date Expiration Date V isits Requested Visits Authorized [id number] Closed Auto-Generate d Referral 12/20/2021 12/20/[address] 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 Author Type: Anesthesiologist Type: Anesthesia Procedure Notes Filed: 01/23/2020 8:44 AM Note Text: ANESTHESIOLOGY PROCEDURE NOTE Peripheral Nerve Block General Information Procedure Start Time/Medication Administration: 01/23/2020 8:26 AM Procedure End time: 01/23/2020 8:40 AM Patient location during procedure: induction room Timeout Performed Pre-procedure: timeout performed Consent Obtained: Yes Patient identity confirmed: arm band and patient Reason for block: post-op pain management/at surgeon's request Staffing Anesthesiologist: Karri Rai MD Performed by: anesthesiologist Preparation Sterility Preparation: hand hygiene performed prior to procedure, gown used during line insertion, surgical cap used, mask used, sterile drape used during line insertion, skin prep agent completely dried prior to procedure Site Prep: Chloraprep Pre-Procedure Neuro Exam Location: RUE Sensory: intact Motor: intact Procedure (more content not included)... Reason for Referral Specialty Diagnoses / Procedures Referred By Contac t Referred To Contact Gastroenterology Diagnoses Lower abdominal pain Procedures CONSULT TO GASTROENTEROLOGY OFFICE/OUTPATIENT [facility] 60-74 MINUTES Ashli Silva PA-C [address] [place] [id number] Referral ID Status Reason Start Date Expiration Date Visits Requested Visits Authorized [id number] Authorized PCP Requested Referral 09/19/2021 09/19/2022 1 1 Specialty Diagnoses / Procedures Referred By Contac t Referred To Contact General Surgery Diagnoses Screening for colon cancer Epigastric pain Bloating Nausea Procedures CONSULT TO GENERAL SURGERY OFFICE/OUTPATIENT [facility] MDM 60-74 MINUTES Ashli Silva PA-C [address] [place] [address] Referral ID Status Reason Start Date Expiration Date Visits Requested Visits Authorized [id number] Authorized PCP Requested Referral 12/12/2021 12/12/2022 1 1 Specialty Diagnoses / Procedures Referred By Contac t Referred To Contact [facility] Diagnoses Primary osteoarthritis of right knee Acute pain of right knee Hamstring strain, left, initial encounter Procedures CONSULT TO PHYSICAL THERAPY PHYSICAL THERAPY EVALUATION HIGH COMPLEX 45 MINS Marcus Barnes MD [address] [place] [id number] [facility] [address] [address] Referral ID Status Reason Start Date Expiration Date Visits Requested Visits Authorized [id number] Pending Review Auto-Generat ed Referral 12/26/2021 12/26/2022 1 1 Specialty Diagnoses / Procedures Referred By Contac t Referred To Contact [facility] Diagnoses Adductor tendonitis Procedures CONSULT TO PHYSICAL THERAPY PHYSICAL THERAPY EVALUATION HIGH COMPLEX 45 MINS Ashli Silva PA-C [address] [place] [address] [facility] [address] [address] Referral ID Status Reason Start Date Expiration Date Visits Requested Visits Authorized [id number] Pending Review Auto-Generat ed Referral 05/12/2022 05/12/2023 1 1 Specialty Diagnoses / Procedures Referred By Contac t Referred To Contact [facility] Diagnoses Adductor tendonitis Procedures PT REHAB FOLLOW UP ORDER THERAPEUTIC EXERCISES RE, EA 15 MIN. Olga Joshua, PT [facility] [address] [address] Referral ID Status Reason Start Date Expiration Date Visits Requested Visits Authorized [id number] Pending Review PCP Requested Referral Auto-Generate d Referral 05/16/2022 08/14/2022 1 1 Specialty Diagnoses / Procedures Referred By Contac t Referred To Contact Diagnoses BPPV (benign paroxysmal positional vertigo), unspecified laterality Ashli Silva PA-C [address] [place] [address] Referral ID Status Reason Start Date Expiration Date V isits Requested Visits Authorized [id number] Pending Review 1 1 Specialty Diagnoses / Procedures Referred By Contac t Referred To Contact CT IMAGING Diagnoses Epigastric pain Procedures CT ABD/PEL W IVCON CT ABD & PELVIS W/CONTRAST Ashli Silva PA-C [address] [facility] [place] [address] [place] [address] Referral ID Status Reason Start Date Expiration Date V isits Requested Visits Authorized [id number] Closed Auto-Generat ed Referral Patient Cleared - Admin/Chairm an/Director advise to proceed or did not respond 04/03/2022 06/03/2022 2 2 Health Concerns Infection Onset Date Last Indicated Resolved Time COVID-19 Confirmed 07/01/2022 07/01/2022 Medications Administered Section Inactive Administered Medications - up to 3 most recent administrations Medication Order MAR Action Action Date Dose Rate Site diphenhydrAMINE 12.5-50 mg injection (BENADRYL) 12.5-50 mg, INTRAVENOUS, DIRECTED, Starting on Sun03/03/22 at 0930, Until Sun03/03/22 at 1329, DOSING DIRECTED BY PHYSICIAN FOR PROCEDURAL SEDATION ONLY, Intraprocedure Given 03/03/2022 9:07 AM EST 50 mg fentaNYL 50 mcg/mL 25-100 mcg injection (SUBLIMAZE) 25-100 mcg, INTRAVENOUS, DIRECTED, Starting on Sun03/03/22 at 0930, Until Sun03/03/22 at 1329, DOSING DIRECTED BY PHYSICIAN FOR PROCEDURAL SEDATION ONLY, Intraprocedure Given 03/03/2022 9:15 AM EST 50 mcg Additional Source Comments INFORMATION SOURCE (unrecogn ized section and content) DATE CREATED AUTHOR AUTHOR'S ORGANIZ ATION 07/26/2020 [facility] DATE CREATED AUTHOR AUTHOR'S ORGANIZ ATION 04/28/2023 [facility] Source Comments (unrecognize d section and content) In the event this informatio n is protected by the Federal Confidentiality of Alcohol and Drug Abuse Patient Records regulations: The Federal rules restrict any use of the information to criminally investigate or prosecute any alcohol or drug abuse patient.[facility] the event this information is protected by the Federal Confidentiality of Alcohol and Drug Abuse Patient Records regulations: The Federal rules restrict any use of the information to criminally investigate or prosecute any alcohol or drug abuse patient.[facility] the event this information is protected by the Federal Confidentiality of Alcohol and Drug Abuse Patient Records regulations: The Federal rules restrict any use of the information to criminally investigate or prosecute any alcohol or drug abuse patient.[facility] the event this information is protected by the Federal Confidentiality of Alcohol and Drug Abuse Patient Records regulations: The Federal rules restrict any use of the information to criminally investigate or prosecute any alcohol or drug abuse patient.[facility] the event this information is protected by the Federal Confidentiality of Alcohol and Drug Abuse Patient Records regulations: The Federal rules restrict any use of the information to criminally investigate or prosecute any alcohol or drug abuse patient.[facility] the event this information is protected by the Federal Confidentiality of Alcohol and Drug Abuse Patient Records regulations: The Federal rules restrict any use of the information to criminally investigate or prosecute any alcohol or drug abuse patient.[facility] the event this information is protected by the Federal Confidentiality of Alcohol and Drug Abuse Patient Records regulations: The Federal rules restrict any use of the information to criminally investigate or prosecute any alcohol or drug abuse patient.[facility] the event this information is protected by the Federal Confidentiality of Alcohol and Drug Abuse Patient Records regulations: The Federal rules restrict any use of the information to criminally investigate or prosecute any alcohol or drug abuse patient.[facility] the event this information is protected by the Federal Confidentiality of Alcohol and Drug Abuse Patient Records regulations: The Federal rules restrict any use of the information to criminally investigate or prosecute any alcohol or drug abuse patient.[facility] the event this information is protected by the Federal Confidentiality of Alcohol and Drug Abuse Patient Records regulations: The Federal rules restrict any use of the information to criminally investigate or prosecute any alcohol or drug abuse patient.[facility] the event this information is protected by the Federal Confidentiality of Alcohol and Drug Abuse Patient Records regulations: The Federal rules restrict any use of the information to criminally investigate or prosecute any alcohol or drug abuse patient.[facility] the event this information is protected by the Federal Confidentiality of Alcohol and Drug Abuse Patient Records regulations: The Federal rules restrict any use of the information to criminally investigate or prosecute any alcohol or drug abuse patient.[facility] the event this information is protected by the Federal Confidentiality of Alcohol and Drug Abuse Patient Records regulations: The Federal rules restrict any use of the information to criminally investigate or prosecute any alcohol or drug abuse patient.[facility] the event this information is protected by the Federal Confidentiality of Alcohol and Drug Abuse Patient Records regulations: The Federal rules restrict any use of the information to criminally investigate or prosecute any alcohol or drug abuse patient.[facility] the event this information is protected by the Federal Confidentiality of Alcohol and Drug Abuse Patient Records regulations: The Federal rules restrict any use of the information to criminally investigate or prosecute any alcohol or drug abuse patient.[facility] the event this information is protected by the Federal Confidentiality of Alcohol and Drug Abuse Patient Records regulations: The Federal rules restrict any use of the information to criminally investigate or prosecute any alcohol or drug abuse patient.[facility] the event this information is protected by the Federal Confidentiality of Alcohol and Drug Abuse Patient Records regulations: The Federal rules restrict any use of the information to criminally investigate or prosecute any alcohol or drug abuse patient.[facility] the event this information is protected by the Federal Confidentiality of Alcohol and Drug Abuse Patient Records regulations: The Federal rules restrict any use of the information to criminally investigate or prosecute any alcohol or drug abuse patient.[facility] the event this information is protected by the Federal Confidentiality of Alcohol and Drug Abuse Patient Records regulations: The Federal rules restrict any use of the information to criminally investigate or prosecute any alcohol or drug abuse patient.[facility] the event this information is protected by the Federal Confidentiality of Alcohol and Drug Abuse Patient Records regulations: The Federal rules restrict any use of the information to criminally investigate or prosecute any alcohol or drug abuse patient.[facility] the event this information is protected by the Federal Confidentiality of Alcohol and Drug Abuse Patient Records regulations: The Federal rules restrict any use of the information to criminally investigate or prosecute any alcohol or drug abuse patient.[facility] the event this information is protected by the Federal Confidentiality of Alcohol and Drug Abuse Patient Records regulations: The Federal rules restrict any use of the information to criminally investigate or prosecute any alcohol or drug abuse patient.[facility] the event this information is protected by the Federal Confidentiality of Alcohol and Drug Abuse Patient Records regulations: The Federal rules restrict any use of the information to criminally investigate or prosecute any alcohol or drug abuse patient.[facility] the event this information is protected by the Federal Confidentiality of Alcohol and Drug Abuse Patient Records regulations: The Federal rules restrict any use of the information to criminally investigate or prosecute any alcohol or drug abuse patient.[facility] the event this information is protected by the Federal Confidentiality of Alcohol and Drug Abuse Patient Records regulations: The Federal rules restrict any use of the information to criminally investigate or prosecute any alcohol or drug abuse patient.[facility] the event this information is protected by the Federal Confidentiality of Alcohol and Drug Abuse Patient Records regulations: The Federal rules restrict any use of the information to criminally investigate or prosecute any alcohol or drug abuse patient.[facility] the event this information is protected by the Federal Confidentiality of Alcohol and Drug Abuse Patient Records regulations: The Federal rules restrict any use of the information to criminally investigate or prosecute any alcohol or drug abuse patient.[facility] the event this information is protected by the Federal Confidentiality of Alcohol and Drug Abuse Patient Records regulations: The Federal rules restrict any use of the information to criminally investigate or prosecute any alcohol or drug abuse patient.[facility] the event this information is protected by the Federal Confidentiality of Alcohol and Drug Abuse Patient Records regulations: The Federal rules restrict any use of the information to criminally investigate or prosecute any alcohol or drug abuse patient.[facility] the event this information is protected by the Federal Confidentiality of Alcohol and Drug Abuse Patient Records regulations: The Federal rules restrict any use of the information to criminally investigate or prosecute any alcohol or drug abuse patient.[facility] the event this information is protected by the Federal Confidentiality of Alcohol and Drug Abuse Patient Records regulations: The Federal rules restrict any use of the information to criminally investigate or prosecute any alcohol or drug abuse patient.[facility] the event this information is protected by the Federal Confidentiality of Alcohol and Drug Abuse Patient Records regulations: The Federal rules restrict any use of the information to criminally investigate or prosecute any alcohol or drug abuse patient.[facility] the event this information is protected by the Federal Confidentiality of Alcohol and Drug Abuse Patient Records regulations: The Federal rules restrict any use of the information to criminally investigate or prosecute any alcohol or drug abuse patient.[facility] the event this information is protected by the Federal Confidentiality of Alcohol and Drug Abuse Patient Records regulations: The Federal rules restrict any use of the information to criminally investigate or prosecute any alcohol or drug abuse patient.[facility] the event this information is protected by the Federal Confidentiality of Alcohol and Drug Abuse Patient Records regulations: The Federal rules restrict any use of the information to criminally investigate or prosecute any alcohol or drug abuse patient.[facility] the event this information is protected by the Federal Confidentiality of Alcohol and Drug Abuse Patient Records regulations: The Federal rules restrict any use of the information to criminally investigate or prosecute any alcohol or drug abuse patient.[facility] the event this information is protected by the Federal Confidentiality of Alcohol and Drug Abuse Patient Records regulations: The Federal rules restrict any use of the information to criminally investigate or prosecute any alcohol or drug abuse patient.[facility]In the event this information is protected by the Federal Confidentiality of Alcohol and Drug Abuse Patient Records regulations: The Federal rules restrict any use of the information to criminally investigate or prosecute any alcohol or drug abuse patient.[facility] HospitalIn the event this information is protected by the Federal Confidentiality of Alcohol and Drug Abuse Patient Records regulations: The Federal rules restrict any use of the information to criminally investigate or prosecute any alcohol or drug abuse patient.[facility] HospitalIn the event this information is protected by the Federal Confidentiality of Alcohol and Drug Abuse Patient Records regulations: The Federal rules restrict any use of the information to criminally investigate or prosecute any alcohol or drug abuse patient.[facility] HospitalIn the event this information is protected by the Federal Confidentiality of Alcohol and Drug Abuse Patient Records regulations: The Federal rules restrict any use of the information to criminally investigate or prosecute any alcohol or drug abuse patient.[facility] HospitalIn the event this information is protected by the Federal Confidentiality of Alcohol and Drug Abuse Patient Records regulations: The Federal rules restrict any use of the information to criminally investigate or prosecute any alcohol or drug abuse patient.[facility] HospitalIn the event this information is protected by the Federal Confidentiality of Alcohol and Drug Abuse Patient Records regulations: The Federal rules restrict any use of the information to criminally investigate or prosecute any alcohol or drug abuse patient.[facility] HospitalIn the event this information is protected by the Federal Confidentiality of Alcohol and Drug Abuse Patient Records regulations: The Federal rules restrict any use of the information to criminally investigate or prosecute any alcohol or drug abuse patient.[facility] HospitalIn the event this information is protected by the Federal Confidentiality of Alcohol and Drug Abuse Patient Records regulations: The Federal rules restrict any use of the information to criminally investigate or prosecute any alcohol or drug abuse patient.[facility] HospitalIn the event this information is protected by the Federal Confidentiality of Alcohol and Drug Abuse Patient Records regulations: The Federal rules restrict any use of the information to criminally investigate or prosecute any alcohol or drug abuse patient.[facility] HospitalIn the event this information is protected by the Federal Confidentiality of Alcohol and Drug Abuse Patient Records regulations: The Federal rules restrict any use of the information to criminally investigate or prosecute any alcohol or drug abuse patient.[facility] HospitalIn the event this information is protected by the Federal Confidentiality of Alcohol and Drug Abuse Patient Records regulations: The Federal rules restrict any use of the information to criminally investigate or prosecute any alcohol or drug abuse patient.[facility] HospitalIn the event this information is protected by the Federal Confidentiality of Alcohol and Drug Abuse Patient Records regulations: The Federal rules restrict any use of the information to criminally investigate or prosecute any alcohol or drug abuse patient.[facility] HospitalIn the event this information is protected by the Federal Confidentiality of Alcohol and Drug Abuse Patient Records regulations: The Federal rules restrict any use of the information to criminally investigate or prosecute any alcohol or drug abuse patient.[facility] HospitalIn the event this information is protected by the Federal Confidentiality of Alcohol and Drug Abuse Patient Records regulations: The Federal rules restrict any use of the information to criminally investigate or prosecute any alcohol or drug abuse patient.[facility] HospitalIn the event this information is protected by the Federal Confidentiality of Alcohol and Drug Abuse Patient Records regulations: The Federal rules restrict any use of the information to criminally investigate or prosecute any alcohol or drug abuse patient.[facility] HospitalIn the event this information is protected by the Federal Confidentiality of Alcohol and Drug Abuse Patient Records regulations: The Federal rules restrict any use of the information to criminally investigate or prosecute any alcohol or drug abuse patient.[facility] HospitalIn the event this information is protected by the Federal Confidentiality of Alcohol and Drug Abuse Patient Records regulations: The Federal rules restrict any use of the information to criminally investigate or prosecute any alcohol or drug abuse patient.[facility] HospitalIn the event this information is protected by the Federal Confidentiality of Alcohol and Drug Abuse Patient Records regulations: The Federal rules restrict any use of the information to criminally investigate or prosecute any alcohol or drug abuse patient.[facility] HospitalIn the event this information is protected by the Federal Confidentiality of Alcohol and Drug Abuse Patient Records regulations: The Federal rules restrict any use of the information to criminally investigate or prosecute any alcohol or drug abuse patient.[facility] HospitalIn the event this information is protected by the Federal Confidentiality of Alcohol and Drug Abuse Patient Records regulations: The Federal rules restrict any use of the information to criminally investigate or prosecute any alcohol or drug abuse patient.[facility] HospitalIn the event this information is protected by the Federal Confidentiality of Alcohol and Drug Abuse Patient Records regulations: The Federal rules restrict any use of the information to criminally investigate or prosecute any alcohol or drug abuse patient.[facility] HospitalIn the event this information is protected by the Federal Confidentiality of Alcohol and Drug Abuse Patient Records regulations: The Federal rules restrict any use of the information to criminally investigate or prosecute any alcohol or drug abuse patient.[facility] HospitalIn the event this information is protected by the Federal Confidentiality of Alcohol and Drug Abuse Patient Records regulations: The Federal rules restrict any use of the information to criminally investigate or prosecute any alcohol or drug abuse patient.[facility] HospitalIn the event this information is protected by the Federal Confidentiality of Alcohol and Drug Abuse Patient Records regulations: The Federal rules restrict any use of the information to criminally investigate or prosecute any alcohol or drug abuse patient.[facility] HospitalIn the event this information is protected by the Federal Confidentiality of Alcohol and Drug Abuse Patient Records regulations: The Federal rules restrict any use of the information to criminally investigate or prosecute any alcohol or drug abuse patient.[facility] HospitalIn the event this information is protected by the Federal Confidentiality of Alcohol and Drug Abuse Patient Records regulations: The Federal rules restrict any use of the information to criminally investigate or prosecute any alcohol or drug abuse patient.[facility] HospitalIn the event this information is protected by the Federal Confidentiality of Alcohol and Drug Abuse Patient Records regulations: The Federal rules restrict any use of the information to criminally investigate or prosecute any alcohol or drug abuse patient.[facility] HospitalIn the event this information is protected by the Federal Confidentiality of Alcohol and Drug Abuse Patient Records regulations: The Federal rules restrict any use of the information to criminally investigate or prosecute any alcohol or drug abuse patient.[facility] HospitalIn the event this information is protected by the Federal Confidentiality of Alcohol and Drug Abuse Patient Records regulations: The Federal rules restrict any use of the information to criminally investigate or prosecute any alcohol or drug abuse patient.[facility] HospitalIn the event this information is protected by the Federal Confidentiality of Alcohol and Drug Abuse Patient Records regulations: The Federal rules restrict any use of the information to criminally investigate or prosecute any alcohol or drug abuse patient.[facility] HospitalIn the event this information is protected by the Federal Confidentiality of Alcohol and Drug Abuse Patient Records regulations: The Federal rules restrict any use of the information to criminally investigate or prosecute any alcohol or drug abuse patient.[facility] HospitalIn the event this information is protected by the Federal Confidentiality of Alcohol and Drug Abuse Patient Records regulations: The Federal rules restrict any use of the information to criminally investigate or prosecute any alcohol or drug abuse patient.[facility] HospitalIn the event this information is protected by the Federal Confidentiality of Alcohol and Drug Abuse Patient Records regulations: The Federal rules restrict any use of the information to criminally investigate or prosecute any alcohol or drug abuse patient.[facility] Reason for Visit (unrecogniz ed section and content) Reason Comments Insurance Authorization [employer] Reason Comments Orders Reason Comments Diarrhea Reason Comments Patient Request Reason Comments Orders Appointment Reason Comments Abdominal Pain Reason Comments Abdominal Pain Nausea Reason Comments 6 Month Exam Reason Onset Date Comments Refill Request 11/21/2021 Reason Comments Appointment Reason Onset Date Comments Refill Request 11/29/2021 Reason Comments Results Reason Comments Radiology NM Specialty Diagnoses / Procedures Referred By Contac t Referred To Contact MOLECULAR & FUNCTIONAL IMAGING Diagnoses 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 manifestations (HCC) Bloating Nausea Procedures NM GASTRIC EMPTYING SOLID GASTRIC EMPTYING STUDY Ashli Silva PA-C [address] [place] [address] Molecular & Functional Imaging [address] [place] [address] Referral ID Status Reason Start Date Expiration Date V isits Requested Visits Authorized [id number] Closed Auto-Generate d Referral 11/21/2021 12/21/2022 1 1 Reason Comments Consult Epigastric pain, blo ating, nausea, constipation Specialty Diagnoses / Procedures Referred By Contac t Referred To Contact General Surgery Diagnoses Screening for colon cancer Epigastric pain Bloating Nausea Procedures CONSULT TO GENERAL SURGERY OFFICE/OUTPATIENT [facility] MDM 60-74 MINUTES Ashli Silva PA-C [address] [place] [address] Referral ID Status Reason Start Date Expiration Date V isits Requested Visits Authorized [id number] Closed PCP Requested Referral 12/12/2021 12/12/2022 1 1 Reason Comments Established Patient Right Knee Pain Last seen 03/28/21 Rig ht distal radius fracture Reason Comments Abdominal Pain Scheduled for colono scopy on 01/20/22 Pain Bilateral legs, lowe r back Reason Onset Date Comments Refill Request 01/05/2022 Reason Comments Insurance Authorization Omeprazole Reason Onset Date Comments Refill Request 01/12/2022 Reason Comments Patient Update Reason Comments Forms Reason Comments No Show Reason Comments Appointment Reason Onset Date Comments Follow Up Immunizations 02/13/2022 Flu vaccination Reason Comments Follow Up Reason Onset Date Comments Refill Request 05/04/2022 Reason Comments Established Patient Pain Reason Comments Appointment Reason Comments Mammogram Result Call Back Reason Comments Knee Pain right Reason Comments PT Eval Specialty Diagnoses / Procedures Referred By Contac t Referred To Contact [facility] Diagnoses Adductor tendonitis Procedures CONSULT TO PHYSICAL THERAPY PHYSICAL THERAPY EVALUATION HIGH COMPLEX 45 MINS Ashli Silva PA-C [address] [place] [address] [facility] [place] [address] [place] [address] Referral ID Status Reason Start Date Expiration Date V isits Requested Visits Authorized [id number] Closed Auto-Generate d Referral 05/16/2022 08/13/2022 1 1 Reason Comments Cough Reason Comments Covid19 Concern Cough, WAN, loss of t aste x1 week, head congestion x1 month Reason Comments Telemedicine Reason Comments Fall Fell yesterday, miss ed porch swing, landed on butt, swing hit head. Reason Onset Date Comments Patient Left Without Being Seen 07/24/2022 Reason Comments Concussion Follow up Dizziness Neck Pain Back Pain Lower back Reason Comments Follow Up Reason Onset Date Comments Refill Request 10/20/2022 Reason Comments Patient Question Reason Onset Date Comments Refill Request 11/23/2022 Specialty Diagnoses / Procedures Referred By Contac t Referred To Contact CT IMAGING Diagnoses Epigastric pain Procedures CT ABD/PEL W IVCON CT ABD & PELVIS W/CONTRAST Ashli Silva PA-C [address] [place] [address] [place] [address] Referral ID Status Reason Start Date Expiration Date V isits Requested Visits Authorized [id number] Closed Auto-Generat ed Referral Patient Cleared - Admin/Chairm an/Director advise to proceed or did not respond 04/03/2022 06/03/2022 2 2 Reason Comments Insurance Authorization Reason Onset Date Comments Refill Request 02/25/2023 Reason Comments Allergies Care Teams (unrecognized sec tion and content) Floating Operator Relationship Specialty Start Date End Date Ashli Silva PA-C [address] [place] [address] PCP - General Family Practice 05/23/17 Colby Ng [address] [place] [address] Referring Neurology 12/13/17 Floating Operator Relationship Specialty Start Date End Date Ashli Silva PA-C [address] [place] [address] PCP - General Family Practice 05/23/17 Colby Ng [address] [place] [address] Referring Neurology 12/13/17 Floating Operator Relationship Specialty Start Date End Date Ashli Silva PA-C [address] [facility] [place] [address] PCP - General Family Practice 05/23/17 Colby Ng [address] [place] [address] Referring Neurology 12/13/17 Floating Operator Relationship Specialty Start Date End Date Ashli Silva PA-C [address] [facility] [place] [address] PCP - General Family Practice 05/23/17 Colby Ng [address] [place] [address] Referring Neurology 12/13/17 Floating Operator Relationship Specialty Start Date End Date Ashli Silva PA-C [address] [facility] [place] [address] PCP - General Family Practice 05/23/17 Colby Ng [address] [place] [address] Referring Neurology 12/13/17 Floating Operator Relationship Specialty Start Date End Date Ashli Silva PA-C [address] [facility] [place] [address] PCP - General Family Practice 05/23/17 Colby Ng [address] [place] [address] Referring Neurology 12/13/17 Floating Operator Relationship Specialty Start Date End Date Ashli Silva PA-C [address] [place] [address] PCP - General Family Practice 05/23/17 Colby gN [address] [place] [address] Referring Neurology 12/13/17 Floating Operator Relationship Specialty Start Date End Date Ashli Silva PA-C [address] [place] [address] PCP - General Family Practice 05/23/17 Colby Ng [address] [place] [address] Referring Neurology 12/13/17 Floating Operator Relationship Specialty Start Date End Date Ashli Silva PA-C [address] [facility] [place] [address] PCP - General Family Practice 05/23/17 Colby Ng [address] [place] [address] Referring Neurology 12/13/17 Floating Operator Relationship Specialty Start Date End Date Ashli Silva PA-C [address] [facility] [place] [address] PCP - General Family Practice 05/23/17 Colby Ng [address] [place] [address] Referring Neurology 12/13/17 Floating Operator Relationship Specialty Start Date End Date Ashli Silva PA-C [address] [facility] [place] [address] PCP - General Family Practice 05/23/17 Colby Ng [address] [place] [address] Referring Neurology 12/13/17 Floating Operator Relationship Specialty Start Date End Date Ashli Silva PA-C [address] [facility] [address] PCP - General Family Practice 05/23/17 Colby Ng [address] [place] [address] Referring Neurology 12/13/17 Floating Operator Relationship Specialty Start Date End Date Ashli Silva PA-C [address] [facility] [place] [address] PCP - General Family Practice 05/23/17 Colby Ng [address] [place] [address] Referring Neurology 12/13/17 Floating Operator Relationship Specialty Start Date End Date Ashli Silva PA-C [address] [place] [place] [address] PCP - General Family Practice 05/23/17 Colby Ng [address] [place] [address] Referring Neurology 12/13/17 Floating Operator Relationship Specialty Start Date End Date Ashli Silva PA-C [address] [facility] [place] [address] PCP - General Family Medicine 05/23/17 Colby Ng [address] [place] [address] Referring Neurology 12/13/17 Floating Operator Relationship Specialty Start Date End Date Ashli Silva PA-C [address] [place] [address] PCP - General Family Medicine 05/23/17 Colby Ng [address] [place] [address] Referring Neurology 12/13/17 Floating Operator Relationship Specialty Start Date End Date Ashli Silva PA-C [address] [place] [address] PCP - General Family Medicine 05/23/17 Colby Ng [address] [place] [address] Referring Neurology 12/13/17 Floating Operator Relationship Specialty Start Date End Date Ashli Silva PA-C [address] [place] [address] PCP - General Family Medicine 05/23/17 Colby Ng [address] [place] [address] Referring Neurology 12/13/17 Floating Operator Relationship Specialty Start Date End Date Ashli Silva PA-C [address] [facility] [place] [address] PCP - General Family Medicine 05/23/17 Colby Ng [address] [place] [address] Referring Neurology 12/13/17 Floating Operator Relationship Specialty Start Date End Date Ashli Silva PA-C [address] [place] [address] PCP - General Family Medicine 05/23/17 Colby Ng [address] [place] [address] Referring Neurology 12/13/17 Floating Operator Relationship Specialty Start Date End Date Ashli Silva PA-C [address] [place] [place] [address] PCP - General Family Medicine 05/23/17 Colby Ng [address] [place] [address] Referring Neurology 12/13/17 Floating Operator Relationship Specialty Start Date End Date Ashli Silva PA-C [address] [facility] [place] [address] PCP - General Family Medicine 05/23/17 Colby Ng [address] [place] [address] Referring Neurology 12/13/17 Floating Operator Relationship Specialty Start Date End Date Ashli Silva PA-C [address] [facility] [place] [address] PCP - General Family Medicine 05/23/17 Colby Ng [address] [place] [address] Referring Neurology 12/13/17 Floating Operator Relationship Specialty Start Date End Date Ashli Silva PA-C [address] [place] [place] [address] PCP - General Family Medicine 05/23/17 Colby Ng [address] [place] [address] Referring Neurology 12/13/17 Floating Operator Relationship Specialty Start Date End Date Ashli Silva PA-C [address] [facility] [place] [address] PCP - General Family Medicine 05/23/17 Colby Ng [address] [place] [address] Referring Neurology 12/13/17 Floating Operator Relationship Specialty Start Date End Date Ashli Silva PA-C [address] [facility] [place] [address] PCP - General Family Medicine 05/23/17 Colby Ng [address] [place] [address] Referring Neurology 12/13/17 Floating Operator Relationship Specialty Start Date End Date Ashli Silva PA-C [address] [facility] [place] [address] PCP - General Family Medicine 05/23/17 Colby Ng [address] [place] [address] Referring Neurology 12/13/17 Floating Operator Relationship Specialty Start Date End Date Ashli Silva PA-C [address] [facility] [place] [address] PCP - General Family Medicine 05/23/17 Colby Ng [address] [place] [address] Referring Neurology 12/13/17 Floating Operator Relationship Specialty Start Date End Date Ashli Silva PA-C [address] [facility] [place] [address] PCP - General Family Medicine 05/23/17 Colby Ng [address] [place] [address] Referring Neurology 12/13/17 Floating Operator Relationship Specialty Start Date End Date Ashli Silva PA-C [address] [facility] [place] [address] PCP - General Family Medicine 05/23/17 Colby Ng [address] [place] [address] Referring Neurology 12/13/17 Floating Operator Relationship Specialty Start Date End Date Ashli Silva PA-C [address] [facility] [place] [address] PCP - General Family Medicine 05/23/17 Colby Ng [address] [place] [address] Referring Neurology 12/13/17 Floating Operator Relationship Specialty Start Date End Date Ashli Silva PA-C [address] [facility] [place] [address] PCP - General Family Medicine 05/23/17 Colby gN [address] [place] [address] Referring Neurology 12/13/17 Floating Operator Relationship Specialty Start Date End Date Ashli Silva PA-C [address] [facility] [place] [address] PCP - General Family Medicine 05/23/17 Colby Ng [address] [place] [address] Referring Neurology 12/13/17 Floating Operator Relationship Specialty Start Date End Date Ashli Silva PA-C [address] [facility] [place] [address] PCP - General Family Medicine 05/23/17 Colby Ng [address] [place] [address] Referring Neurology 12/13/17 Floating Operator Relationship Specialty Start Date End Date Ashli Silva PA-C [address] [facility] [place] [address] PCP - General Family Medicine 05/23/17 Colby Ng [address] [place] [address] Referring Neurology 12/13/17 Floating Operator Relationship Specialty Start Date End Date Ashli Silva PA-C [address] [facility] [place] [address] PCP - General Family Medicine 05/23/17 Colby Ng [address] [place] [address] Referring Neurology 12/13/17 Floating Operator Relationship Specialty Start Date End Date Ashli Silva PA-C [address] [place] [address] PCP - General Family Medicine 05/23/17 Colby Ng [address] [place] [address] Referring Neurology 12/13/17 Floating Operator Relationship Specialty Start Date End Date Ashli Silva PA-C [address] [facility] [place] [address] PCP - General Family Medicine 05/23/17 Colby Ng [address] [place] [address] Referring Neurology 12/13/17 Floating Operator Relationship Specialty Start Date End Date Ashli Silva PA-C [address] [place] [address] PCP - General Family Medicine 05/23/17 Colby Ng [address] [place] [address] Referring Neurology 12/13/17 Floating Operator Relationship Specialty Start Date End Date Ashli Silva PA-C [address] [facility], [place] [address] PCP - General Family Medicine 05/23/17 Colby Ng [address] [place] [address] Referring Neurology 12/13/17 Floating Operator Relationship Specialty Start Date End Date Ashli Silva PA-C [address] [place] [address] PCP - General Family Medicine 05/23/17 Colby Ng [address] [place] [address] Referring Neurology 12/13/17 Floating Operator Relationship Specialty Start Date End Date Ashli Silva PA-C [address] [place], [place] [address] PCP - General Family Medicine 05/23/17 Colby Ng [address] [facility] [place] [address] Referring Neurology 12/13/17 Floating Operator Relationship Specialty Start Date End Date Ashli Silva PA-C [address] [facility], [place] [address] PCP - General Family Medicine 05/23/17 Colby Ng [address] [place] [address] Referring Neurology 12/13/17 Floating Operator Relationship Specialty Start Date End Date Ashli Silva PA-C [address] [facility] [place], [place] [address] PCP - General Family Medicine 05/23/17 Colby Ng [address] [place] [address] Referring Neurology 12/13/17 Floating Operator Relationship Specialty Start Date End Date Ashli Silva PA-C [address] [facility] [place], [place] [address] PCP - General Family Medicine 05/23/17 Colby Ng [address] [place] [address] Referring Neurology 12/13/17 Floating Operator Relationship Specialty Start Date End Date Ashli Silva PA-C [address] [facility] [place], [place] [address] PCP - General Family Medicine 05/23/17 Colby Ng [address] [place] [address] Referring Neurology 12/13/17 Floating Operator Relationship Specialty Start Date End Date Ashli Silva PA-C [address] [facility] [place] [address] PCP - General Family Medicine 05/23/17 Colby Ng [address] [place] [address] Referring Neurology 12/13/17 Floating Operator Relationship Specialty Start Date End Date Ashli Silva PA-C [address] [place] [address] PCP - General Family Medicine 05/23/17 Colby Ng MD [address] [place] [address] Referring Neurology 12/13/17 Floating Operator Relationship Specialty Start Date End Date Ashli Silva PA-C [address] [place] [address] PCP - General Family Medicine 05/23/17 Colby Ng MD [address] [place] [address] Referring Neurology 12/13/17 Floating Operator Relationship Specialty Start Date End Date Ashli Silva PA-C [address] [place] [address] PCP - General Family Medicine 05/23/17 Colby Ng MD [address] [place] [address] Referring Neurology 12/13/17 Floating Operator Relationship Specialty Start Date End Date Ashli Silva PA-C [address] [place] [address] PCP - General Family Medicine 05/23/17 Colby Ng MD [address] [place] [address] (work) Referring Neurology 12/13/17 FOR RECORDS PERTAINING TO PATIENTS WHO ARE OR HAVE BEEN ENROLLED IN A CHEMICAL DEPENDENCY/SUBSTANCEABUSE PROGRAM, SOME INFORMATION MAY BE OMITTED. This clinical summary was aggregated from multiple sources. Caution should be exercised in using it in the provision of clinical care. This summary normalizes information from multiple sources, and as a consequence, information in this document may materially change the coding, format and clinical context of patient data. In addition, data may be omitted in some cases. CLINICAL DECISIONS SHOULD BE BASED ON THE PRIMARY CLINICAL RECORDS. [facility]. provides no warranty or guarantee of the accuracy or completeness of information in this document.
--- NOTE | 2023-05-08 22:56 | ED.VIS.GI ---
HPI HPI - GI History of Present Illness Chief Complaint: Flank Pain Narrative Narrative: 67-year-old female with history of kidney stones presenting with left flank pain. Onset was yesterday. It has been intermittent. She describes it as achy. It radiates from the left flank into the left lower abdomen. Some trouble urinating. No fevers or chills. She does admit to nausea. No diarrhea but states she was constipated yesterday and did take stool softeners and laxative without a bowel. Patient is not vomiting. Patient states her previous kidney stones required intervention. [facility] Medical History Constipation Diabetes Fibromyalgia Hyperlipidemia Home Medications metformin 500 mg tablet 850 mg PO BIDCM 07/31/13 [History Last Taken 10/24/17] paroxetine HCl 30 mg tablet (Paxil) 30 mg PO QHS 07/31/13 [History Last Taken 10/23/17] pravastatin 20 mg tablet 20 mg PO QHS 07/31/13 [History Last Taken 10/23/17] tramadol 50 mg tablet 50 mg PO Q6H PRN pain 2 days #8 tabs 05/02/21 [Rx Last Taken Unknown] hydrocodone-acetaminophen 5-325mg 5mg-325mg 1 tab PO Q6H PRN pain 3 days #10 tabs 04/12/22 [Rx Last Taken Unknown] ondansetron 4 mg disintegrating tablet 4 mg PO Q8H PRN PRN Nausea #10 tabs 07/17/22 [Rx Last Taken Unknown] ondansetron 4 mg disintegrating tablet 4 mg PO Q8H PRN PRN Nausea #14 tabs 12/07/22 [Rx Last Taken Unknown] ondansetron 4 mg disintegrating tablet 4 mg PO Q8H PRN PRN Nausea #14 tabs 05/08/23 [Rx Last Taken Unknown] oxycodone 5 mg tablet 5 mg PO Q6H PRN pain 3 days #12 tabs 05/08/23 [Rx Last Taken Unknown] Allergy/AdvReac Type Severity Reaction Status Date / Time moxifloxacin HCl Allergy Other Verified 05/08/23 20:15 [From Avelox] Penicillins Allergy Nausea Verified 05/08/23 20:15 cefuroxime [From Ceftin] AdvReac Other Verified 05/08/23 20:15 doxycycline AdvReac Nausea Verified 05/08/23 20:15 prednisone AdvReac Other Verified 05/08/23 20:15 sulfamethoxazole AdvReac Vomiting Verified 05/08/23 20:15 [From Bactrim] trimethoprim [From Bactrim] AdvReac Vomiting Verified 05/08/23 20:15 Surgical History H/O hand surgery Social History household members: none Smoking Status: Current every day smoker tobacco type: cigarettes substance use type: does not use ROS ROS ED Constitutional Constitutional ED: Denies chills, fever(s) or sweats Eyes Eyes: Denies blurry vision or change in vision ENT ENT ED: Denies ear pain or sore throat Cardiovascular Cardiovascular: Denies chest pain, palpitations or racing heartbeat Respiratory/Chest Respiratory/Chest: Denies cough, dyspnea or sputum Gastrointestinal Gastrointestinal: Reports abdominal pain; Denies constipation, diarrhea, nausea or vomiting Genitourinary Genitourinary ED: Denies dysuria, hematuria or urinary frequency Musculoskeletal Musculoskeletal: Reports back pain; Denies arthralgias, myalgias or neck pain Integumentary Denies abscess, Abrasions or rash Neurologic Neurologic: Denies headache(s), paresthesias or weakness Psychiatric Psychiatric: Denies anxiety, depression, suicidal ideation or suicidal thoughts Endocrine Endocrinology: Denies polydipsia or polyuria EXAM Physical Exam Const Vital Signs: 05/08/23 20:15 05/08/23 20:19 Temperature 98.6 F 98.6 F Temperature Source Temporal Temporal Pulse Rate 94 94 Respiratory Rate 16 20 H Blood Pressure 147/84 H 147/84 H Blood Pressure Mean 105 105 Pulse Ox 98 98 Oxygen Delivery Method Room Air Room Air General Appearance ED: NAD; Negative for pallor HEENT Reports moist mucous membranes normocephalic and atraumatic Eyes PERRL and EOMs intact bilaterally Resp normal respiratory effort Effort and Inspection: Negative for respiratory distress Cardio regular rate and regular rhythm GI non-tender Palpation: tender LLQ Back/Spine General Back: CVA tenderness left Neuro CN's II-XII intact bilaterally Sensorium / Orientation: alert Motor Exam: strength 5/5 throughout Psych mental status grossly normal Skin no wounds General Skin Exam: Negative for jaundice or pallor MDM MDM MDM Narrative Medical decision making narrative: Patient presenting with left flank pain history of kidney stones. She has CVA tenderness on the left. Differential includes UTI, pyelonephritis, colitis, diverticulitis, dehydration, anemia, electrolyte abnormalities. CBC was obtained to assess white blood cell count, hemoglobin, platelets. CMP to assess liver function, renal function electrodes, glucose. Urinalysis to assess for UTI or occult blood. Patient medicated with morphine, Toradol, Zofran.. Liver function normal. CBC shows white blood cell 10.5. Hemoglobin 0.7. Creatinine 1.64 and is above baseline however the last kidney function was done in 2018 from what I can see in our system. Urinalysis shows occult blood without infection. CT of the abdomen pelvis was obtained. This shows left mid ureteral stone with hydronephrosis hydroureter measuring 7 mm. Patient currently comfortable. I will give her some oxycodone and Zofran for home. I will give her follow-up with urology. Impression: 1. 7 mm left ureteral stone 2. Left-sided hydronephrosis 3. Hematuria Lab Data Attestation: I reviewed the patient's lab results. Labs: Laboratory Results - last 24 hr 05/08/23 05/08/23 21:01 21:06 WBC 10.5 RBC 3.94 L Hgb 11.7 L Hct 37.3 MCV 94.7 MCH 29.7 MCHC 31.4 L RDW Std Deviation 46.0 H RDW Coeff of Kenrick 13.2 Plt Count 200 MPV 10.8 Immature Gran % (Auto) 0.300 Neut % (Auto) 70.8 H Lymph % (Auto) 19.2 [place] % (Auto) 7.7 Eos % (Auto) 1.4 Baso % (Auto) 0.6 Absolute Neuts (auto) 7.5 Absolute Lymphs (auto) 2.02 Nucleated RBC % 0 Sodium 138 Potassium 4.5 Chloride 110 H Carbon Dioxide 22.0 Anion Gap 6 BUN 30 H Creatinine 1.64 H Estim Creat Clear Calc 30.30 Est GFR (MDRD) Af Amer 40 L Est GFR (MDRD) Non-Af 33 L BUN/Creatinine Ratio 18.3 Glucose 234 H Calcium 9.3 Total Bilirubin 0.30 AST 19 ALT 18 Alkaline Phosphatase 68 Total Protein 7.3 Albumin 3.6 Globulin 3.7 Albumin/Globulin Ratio 1.0 Urine Color Yellow Urine Clarity Clear Urine pH 6.0 Ur Specific Otis 1.015 Urine Protein 30 H Urine Glucose (UA) 100 H Urine Ketones Negative Urine Occult Blood 250 H Urine Nitrite Negative Urine Bilirubin Negative Urine Urobilinogen Normal Ur Leukocyte Esterase 25 H Urine RBC 10-25 SEEN Urine WBC 0-5 SEEN Ur Squamous Epith Cells 0-5 SEEN Urine Bacteria 0 SEEN Urine Mucus 0 SEEN Radiography Diagnostic Testing: Clinical Impression(s) from Imaging Studies Abdomen/Pelvis CT 05/08/23 21:57 IMPRESSION: Mid left ureteral calculus 7 mm with moderate left hydroureteronephrosis. Electronically Signed: Shweta Perez MD at 22:59 EST , Discharge Plan Triage Chief Complaint: Flank Pain ED Provider: Don Lemons Dx/Rx/DC Orders Instructions: ED Kidney Stone with Pain Prescriptions: New oxycodone 5 mg tablet 5 mg PO Q6H PRN (Reason: pain) 3 Days Qty: 12 0RF ondansetron 4 mg tablet,disintegrating 4 mg PO Q8H PRN PRN (Reason: Nausea) Qty: 14 0RF No Action metformin 500 MG tablet 850 mg PO BIDCM Patient Comments: DIABETES paroxetine HCl [Paxil] 30 MG tablet 30 mg PO QHS Patient Comments: DEPRESSION/ ANXIETY pravastatin 20 MG tablet 20 mg PO QHS Patient Comments: CHOLESTEROL tramadol 50 mg tablet 50 mg PO Q6H PRN (Reason: pain) 2 Days Qty: 8 0RF hydrocodone-acetaminophen 5-325 mg tablet 1 tab PO Q6H PRN (Reason: pain) 3 Days Qty: 10 0RF ondansetron [ondansetron] 4 mg tablet,disintegrating 4 mg PO Q8H PRN PRN (Reason: Nausea) Qty: 10 0RF ondansetron 4 mg tablet,disintegrating 4 mg PO Q8H PRN PRN (Reason: Nausea) Qty: 14 0RF Primary Care Provider: Ashli Silva Referrals: Ashli Silva PA [Primary Care Provider] - Disposition Disposition: Home, Self Care
[2023-05-08] MEDS: oxyCODONE 5 MG Tablet PO (23:20)
[2023-05-08 23:23] VITALS: BP 134/81; PULSE 76; RESP 16; TEMP 37; O2SAT 98
== END 2023-05-08 23:24 | disposition home or self-care (01) ==
PROVIDERS: Emergency Provider Student in an Organized Health Care Education/Training Program; PCP Physician Assistant; Visit Provider Student in an Organized Health Care Education/Training Program
DX: N13.2 Hydronephrosis with renal and ureteral calculous obstruction (principal); E11.9 Type 2 diabetes mellitus without complications; F17.210 Nicotine dependence, cigarettes, uncomplicated; R11.0 Nausea; R31.9 Hematuria, unspecified; Z79.84 Long term (current) use of oral hypoglycemic drugs; E78.5 Hyperlipidemia, unspecified
CPT/HCPCS: 74176; 80053; 81001; 85025; 99283; A4216; J2405

== ENCOUNTER 2023-05-31 10:02 | Day surgery (SDC) | payer MEDICARE, MEDICAID, SELFPAY ==
[2023-05-31] VITALS (7 sets, daily range): BP systolic 119–151; BP diastolic 58–83; PULSE 65–73; RESP 16–18; TEMP 36.4–36.6; O2SAT 94–100; BMI 26.9
[2023-05-31] MEDS: Lactated Ringers 1,000 ML 15 ML IV (11:00)
[2023-05-31 11:19] LABS: Bedside Glucose 117 mg/dL (74-106)
[2023-05-31] MEDS: Clindamycin 900 MG/50 ML BAG 75 MG IV (11:43)
--- NOTE | 2023-05-31 12:39 | DCINST_ITS ---
Discharge Instructions Diet Discharge Diet: No restrictions Activity Discharge Activity: Return to Normal Activity May resume sexual activity in: No Restrictions Dressing / Incision Call your doctor if you observe: Fever of 101 or Higher, Inability to urinate and Inability to have a bowel movement Follow Up Care Please Follow Up With: Pratima Salazar MD When: The office will call her to make arrangements for follow-up in the office with stent removal. Test Results: Test results from this visit will be discussed in further detail at your follow- up appointment, if applicable. Discharge Plan Admission Attending Provider: Pratima Salazar Primary Care Provider: Ashli Silva Discharge Orders/Prescriptions Prescriptions: New oxycodone-acetaminophen [Percocet] 5-325 mg tablet 1 tab PO Q8H PRN (Reason: pain) 3 Days Qty: 10 0RF nitrofurantoin monohyd/m-cryst [Macrobid] 100 mg capsule 100 mg PO BID Qty: 6 0RF Rx Instructions: must administer with a meal/food phenazopyridine [Pyridium] 200 mg tablet 200 mg PO TID PRN PRN (Reason: Bladder Spasms) 7 Days Qty: 30 0RF Continued metformin 500 MG tablet 850 mg PO BIDCM Patient Comments: DIABETES paroxetine HCl [Paxil] 30 MG tablet 30 mg PO QHS Patient Comments: DEPRESSION/ ANXIETY pravastatin 20 MG tablet 20 mg PO QHS Patient Comments: CHOLESTEROL ondansetron 4 mg tablet,disintegrating 4 mg PO Q8H PRN PRN (Reason: Nausea) Qty: 10 0RF oxycodone 5 mg tablet 5 mg PO Q6H PRN (Reason: pain) 3 Days Qty: 12 0RF Referrals / Follow Up: Ashli Silva PA [Primary Care Provider] - Disposition Disposition (needs filled in before D/C Order can be placed): Home, Self Care
--- NOTE | 2023-05-31 12:41 | PCM.OPRPT ---
Report of Operation Date of Procedure: 05/31/23 Pre-Operative Diagnosis: Left ureteral calculus with hydronephrosis Post-Operative Diagnosis: Same Surgery/Procedure Performed:: Cystoscopy, left ureteroscopy holmium laser lithotripsy, stone basket extraction, left ureteral stent insertion Surgeon: Pratima Salazar Type of Anesthesia: General Specimen's removed: Ureteral stone fragments Description of Procedure: The patient is a 67-year-old female found to have a mid left ureteral stone who now presents for definitive intervention. Informed consent was obtained. The patient was taken to the operating room and placed on the operating room table. Anesthesia monitored the head, neck, airway, IV access and vital signs throughout the case. Once anesthesia was appropriately administered, the patient was placed into dorsolithotomy position and was prepped and draped in usual sterile fashion. The cystoscope was then inserted through the urethra under direct visualization into the urinary bladder. The bladder mucosa was visualized in its entirety revealing no evidence of mass, erythema or ulceration. The left ureteral orifice was identified and intubated gently with an 0.035 Glidewire which was seen curled in the renal pelvis on fluoroscopy. Using the semirigid ureteroscope, access was through the urethra, into the urinary bladder and then into the left ureter without difficulty. A large stone was identified in the distal ureter. Using a 270 ?m laser fiber, the stone was broken into multiple small fragments which were then stone basket removed without difficulty. At the conclusion of stone removal, when no further fragments were identified, the ureter was seen to be in good intact position. The safety wire was then used with the cystoscope for placement of a 4.5 Japanese 24 cm JJ stent with good positioning in the renal pelvis as well as the urinary bladder. The patient's bladder was then emptied and the cystoscope was removed. She was awakened and taken to the recovery room in good condition. There were no complications during this procedure. Grafts/Implants Used: 4.5 x 24 cm JJ stent Complications None Admit VTE Documentation VTE Present on Admission: Yes VTE Mechan Device Prophylaxis: SCD's VTE Pharm Prophylaxis ordered?: No Reason prophylaxis not ordered:: Treatment Not Indicated
[2023-05-31 13:17] LABS: Bedside Glucose 112 mg/dL (74-106)
== END 2023-05-31 13:33 | disposition home or self-care (01) ==
LOC: SDC 10:02 → AC 10:03
PROVIDERS: PCP Physician Assistant; Referring Provider Urology; Visit Provider Urology
PROC: 0TJ98ZZ Inspection of Ureter, Via Natural or Artificial Opening Endoscopic (ICD-10-PCS; CPT 52352; principal; 2023-05-31 11:40)
DX: N13.2 Hydronephrosis with renal and ureteral calculous obstruction (principal); E11.9 Type 2 diabetes mellitus without complications; N18.30 Chronic kidney disease, stage 3 unspecified; E78.5 Hyperlipidemia, unspecified; Z90.49 Acquired absence of other specified parts of digestive tract; F17.200 Nicotine dependence, unspecified, uncomplicated; N32.81 Overactive bladder; N39.46 Mixed incontinence; J45.909 Unspecified asthma, uncomplicated; R05.3 Chronic cough
CPT/HCPCS: 52356; 00918; 76000; 82360; 82962; J7120; J2405

== ENCOUNTER 2023-08-19 20:30 | Observation (INO) | payer MEDICARE, MEDICAID, SELFPAY ==
[2023-08-19] VITALS (10 sets, daily range): BP systolic 118–152; BP diastolic 68–90; PULSE 62–93; RESP 15–18; TEMP 36.4–36.7; O2SAT 96–100; BMI 27.2; BMI 27.1
--- NOTE | 2023-08-19 20:44 | ED.RN ---
DR. CURRY NOTIFIED PATIENT WAS HAVING PINPRICK SENSATIONS ON THE LEFT SIDE OF FACE. PT STATES THIS STARTED AROUND [address] CURRY STATES SHE HAS AN NIH OF 1, THAT DOES NOT WARRANT US TO CALL A STROKE TEAM ON HER. IBETH ORDONEZ NOTIFIED
--- NOTE | 2023-08-19 20:50 | CT_ITS ---
EXAM: CT HEAD WITHOUT INTRAVENOUS CONTRAST CLINICAL INDICATION: Neuro deficit, acute, stroke suspected TECHNIQUE: Multiple axial images were obtained of the head without intravenous contrast. This CT exam was performed using one or more of the following dose reduction techniques: automated exposure control, adjustment of the mA and/or kV according to patient size, and/or use of iterative reconstruction technique. COMPARISON: No relevant prior studies available. FINDINGS: BRAIN AND EXTRA-AXIAL SPACES: Diffuse parenchymal atrophy. No intra- or extra-axial hemorrhage. No evidence of acute infarct. No intracranial mass or mass effect. There is preservation of the purcell/white matter interface. Posterior fossa structures are unremarkable. No hydrocephalus. Basal cisterns are patent. BONES/JOINTS: Unremarkable. No discrete lytic or blastic abnormalities. SINUSES: Unremarkable as visualized. Clear. MASTOID AIR CELLS: Unremarkable. Clear. ORBITS: Visualized globes, extraocular muscles, optic nerves and retrobulbar fat appear unremarkable. CT/Brain/Head without Contrast IMPRESSION: No acute intracranial pathology. AIDOC was utilized to assist in identifying pertinent positive findings. Electronically Signed: Awais Apotne MD at 21:44 EDT ,
--- NOTE | 2023-08-19 20:50 | EKG12_ITS ---
Test Reason : DYSRHYTHMIA Blood Pressure : / mmHG Vent. Rate : 067 BPM Atrial Rate : 067 BPM P-R Int : 150 ms QRS Dur : 096 ms QT Int : 408 ms P-R-T Axes : 029 -15 060 degrees QTc Int : 431 ms Normal sinus rhythm Low voltage QRS Borderline ECG Confirmed by JUSTIN LANZA, RAYSA ([id number]), movie editor SEMAJ RIOS ([id number]) on 08/23/2023 6:16:07 AM Referred By: Confirmed By:RACHELE ANDERSON MD
--- NOTE | 2023-08-19 20:50 | ED.VIS.STROK ---
HPI History of Present Illness Chief Complaint: Dizziness Narrative Narrative: 67-year-old female presenting with headache for a week. She states has been doing a lot of sewing and this causes a lot of vibration which has caused her to have a headache. She states he has a history of 2 concussions in the past and she had migraine headaches x 2 after the second concussion. Today at 3 hours ago she felt like she had a little bit of numbness in the left side of her face. She denies any history of stroke. She describes the feeling as numbness as droopy. She notes that her face is not drooping. Denies chest pain or shortness of breath. She states about a week ago she was treated with clarithromycin for a sinus infection by Dr. Wood. She is not complaining of facial pain. She states her whole head aches. She does admit to light sensitivity and sound sensitivity. No fevers. [facility] Medical History Trigger thumb, right thumb Left ureteral calculus Wears glasses Anxiety Diabetes Arthritis Ambulates with cane CKD (chronic kidney disease), stage III Urinary incontinence High cholesterol Injury of head and neck Dietary restriction Heartburn Chronic cough Smoker Leg cramps History of edema Constipation Hyperlipidemia Fibromyalgia Diabetes Home Medications ?Medication ?Instructions ?Recorded ?Last Taken ?Type metformin 500 mg tablet 850 mg PO BIDCM 07/31/13 05/30/23 17:00 History pravastatin 20 mg tablet 20 mg PO QHS 07/31/13 05/30/23 20:00 History acetaminophen 650 mg 650 mg PO Q8H 07/05/23 Unknown History tablet,extended release albuterol sulfate 90 mcg/actuation 2 puff inhalation Q4H PRN 07/05/23 Unknown History aerosol inhaler shortness of breath or wheezing cholecalciferol (vitamin D3) 50 50 mcg PO DAILY 07/05/23 Unknown History mcg (2,000 unit) capsule methocarbamol 500 mg tablet 500 mg PO .QID PRN muscle spasm 07/05/23 Unknown History paroxetine HCl 30 mg tablet (Paxil) 40 mg PO QHS 07/05/23 Unknown History Allergy/AdvReac Type Severity Reaction Status Date / Time moxifloxacin HCl (From Allergy Other Verified 07/12/23 14:01 Avelox) Penicillins Allergy Nausea Verified 07/12/23 14:01 cefuroxime (From Ceftin) AdvReac Other Verified 07/12/23 14:01 doxycycline AdvReac Nausea Verified 07/12/23 14:01 prednisone AdvReac Other Verified 07/12/23 14:01 sulfamethoxazole (From AdvReac Vomiting Verified 07/12/23 14:01 Bactrim) trimethoprim (From Bactrim) AdvReac Vomiting Verified 07/12/23 14:01 Surgical History History of removal of retained hardware History of tonsillectomy History of ankle surgery History of bunionectomy of left great toe History of endoscopic sinus surgery History of endoscopic sinus surgery History of lithotripsy History of salpingectomy History of surgery of uterus History of cholecystectomy History of hysterectomy H/O hand surgery Social History household members: none Smoking Status: Current every day smoker tobacco type: cigarettes substance use type: does not use ROS ROS ED Constitutional Constitutional ED: Denies chills, fever(s) or sweats Eyes Eyes: Denies blurry vision or change in vision ENT ENT ED: Denies ear pain or sore throat Cardiovascular Cardiovascular: Denies chest pain, palpitations or racing heartbeat Respiratory/Chest Respiratory/Chest: Denies cough, dyspnea or sputum Gastrointestinal Gastrointestinal: Denies abdominal pain, constipation, diarrhea, nausea or vomiting Genitourinary Genitourinary ED: Denies dysuria, hematuria or urinary frequency Musculoskeletal Musculoskeletal: Denies arthralgias, myalgias or neck pain Integumentary Denies abscess, Abrasions or rash Neurologic Neurologic: Reports headache(s) and paresthesias LUE and LLE; Denies weakness Psychiatric Psychiatric: Denies anxiety, depression, suicidal ideation or suicidal thoughts Endocrine Endocrinology: Denies polydipsia or polyuria EXAM Physical Exam Const Vital Signs: 08/19/23 20:32 08/19/23 20:38 08/19/23 20:52 Temperature 97.6 F L Temperature Source Temporal Pulse Rate 76 93 78 Respiratory Rate 15 18 18 Blood Pressure 127/68 H 148/74 H Blood Pressure Mean 87 98 Pulse Ox 96 96 Oxygen Delivery Method Room Air Room Air Room Air 08/19/23 20:53 08/19/23 21:20 08/19/23 21:30 Temperature Temperature Source Pulse Rate 68 63 Respiratory Rate 18 18 Blood Pressure 148/83 H 152/75 H Blood Pressure Mean 104 100 Pulse Ox 96 96 Oxygen Delivery Method Room Air Room Air Positive well nourished HEENT Reports moist mucous membranes Eyes PERRL and EOMs intact bilaterally Neck no lymphadenopathy Chest Wall inspection of chest normal Resp normal respiratory effort and clear to auscultation bilaterally Auscultation: Negative for rales, rhonchi or wheezes Cardio Rate: regular rate Rhythm: regular rhythm GI normal to inspection, nondistended, normoactive bowel sounds Extremity normal to inspection General Extremety ED: Negative for deformity or edema General Extremity: Negative for deformity or edema Neuro oriented x3 Sensorium / Orientation: alert Motor Exam: strength 5/5 throughout Psych mental status grossly normal NIHSS NIHSS Initial: 1a Level of Consciousness: 0 1b LOC Questions (Score 2 if aphasic/stupor): 0 1c LOC Commands (Only score 1st attempt): 0 2 Best Gaze (If aphasic, use reflexive mvmts.): 0 3 Visual: 0 4 Facial Palsy: 0 5 Motor Arm Right (UN = amputation/fusion): 0 5 Motor Arm Left: 0 6 Motor Leg Right: 0 6 Motor Leg Left: 0 7 Limb ataxia (Only + if out of proportion): 0 8 Sensory (Aphasia/stupor=0 or 1, coma=2): 1 9 Best Language: 0 10 Dysarthria (mute, coma=2, intubated=UN): 0 11 Extinction and Inattention (only scored if +): 0 Total Score: 1 MDM MDM MDM Narrative Medical decision making narrative: Patient with reported headache for a week. She states that she believes it is due to the amount of sewing that she is doing and the vibrations given her headache although she complains that at about 530 she has some decrease sensation in the left side of her face which she describes as a droop. On examination she does not have a droop on the left side of her face but does state that she has decreased sensation on the left side of her face. Objectively there is no other findings on examination except she has decreased sensation on the left side of her body including the left shoulder, arm, leg, foot. She states this has been there for a very long time and this is not new. She suspects it is from sewing. Patient also has history of migraines status post concussions and states she has had 2 of these. Differential includes migraine, stroke, TIA, tension headache, dehydration, anemia, electrolyte abnormality. CBC will be obtained to assess white blood cell count, hemoglobin, platelets. BMP to assess renal function, electrolytes, glucose. High-sensitivity troponin and EKG to assess for ischemia/dysrhythmia. CT brain will be obtained. Stroke team was not called because has been having the symptoms of dizziness and headache for about a week. In addition to this her NIH stroke scale score is 1. CBC shows normal white blood cell count 8.2. Hemoglobin 10.7. Platelets are normal at 260. PT/INR normal. Creatinine slightly elevated today at 1.10. High-sensitivity troponin is 4. EKG on my interpretation shows a sinus rhythm at 67 bpm without sign of ischemic change or ectopy. CT brain is negative for acute findings. Patient reevaluated at 10:00 PM and still having head pressure. She states she still having the sensation difference in the left side of her face. She was given aspirin 325 mg and was admitted to the hospitalist. Impression: 1. Facial paresthesias 2. Headache Lab Data Attestation: I reviewed the patient's lab results. Labs: Laboratory Results - last 24 hr 08/19/23 08/19/23 20:50 21:01 WBC 8.2 RBC 3.93 L Hgb 11.7 L Hct 37.3 MCV 94.9 MCH 29.8 MCHC 31.4 L RDW Std Deviation 48.5 H RDW Coeff of Kenrick 14.0 Plt Count 260 MPV 10.7 Immature Gran % (Auto) 0.200 Neut % (Auto) 48.9 Lymph % (Auto) 41.4 H [place] % (Auto) 7.0 Eos % (Auto) 1.8 Baso % (Auto) 0.7 Absolute Neuts (auto) 4.0 Absolute Lymphs (auto) 3.41 Nucleated RBC % 0 PT 12.5 INR 0.9 APTT 30.2 Sodium 139 Potassium 4.1 Chloride 107 Carbon Dioxide 23.0 Anion Gap 9 BUN 26 H Creatinine 1.10 H Estim Creat Clear Calc 45.20 Est GFR (MDRD) Af Amer 63 Est GFR (MDRD) Non-Af 52 L BUN/Creatinine Ratio 23.6 H Glucose 135 H Calcium 9.2 Troponin I High Sens 4 POC Glucose 128 H Radiography Diagnostic Testing: Clinical Impression(s) from Imaging Studies Brain CT 08/19/23 20:50 IMPRESSION: No acute intracranial pathology. AIDOC was utilized to assist in identifying pertinent positive findings. Electronically Signed: Awais Aponte MD at 21:44 EDT Reading Location ID and State: [address] [place] [address] Tel , Service support , Discharge Plan Triage Chief Complaint: Dizziness ED Provider: Don Lemons Dx/Rx/DC Orders Prescriptions: No Action acetaminophen 650 mg tablet extended release 650 mg PO Q8H albuterol sulfate 90 mcg/actuation HFA aerosol inhaler 2 puff inhalation Q4H PRN (Reason: shortness of breath or wheezing) cholecalciferol (vitamin D3) 50 mcg (2,000 unit) capsule 50 mcg PO DAILY methocarbamol 500 mg tablet 500 mg PO .QID PRN (Reason: muscle spasm) metformin 500 MG tablet 850 mg PO BIDCM Patient Comments: DIABETES pravastatin 20 MG tablet 20 mg PO QHS Patient Comments: CHOLESTEROL paroxetine HCl [Paxil] 30 mg tablet 40 mg PO QHS Patient Comments: DEPRESSION/ ANXIETY Primary Care Provider: Ashli Silva Referrals: Ashli Silva PA [Primary Care Provider] - Print Language: Bermudian
--- NOTE | 2023-08-19 20:57 | ED.RN ---
Triage nurse and this RN discussed stroke alert with Dr. Lemons. He reports symptoms are vague and last known well/onset of symptoms unclear. Per Dr. Lemons no stroke alert to be called.
[2023-08-19 21:11] LABS: Absolute Lymphocyte Count 3.41 X10^3/uL (0.83-4.51); Basophil# 0.06 X10^3/uL; Basophil% 0.7 % (0-1); Eosinophil# 0.15 X10^3/uL; Eosinophils% 1.8 % (0-5); Hematocrit 37.3 % (37-47); Hemoglobin 11.7 g/dL (12.0-15.0); Lymphocyte # 3.41 X10^3/ul (0.83-4.51); Lymphocyte % 41.4 % (19-41); Mean Corp Hgb Conc 31.4 g/dL (32-36); Mean Corpuscular Hgb 29.8 pg (27.0-32.0); Mean Corpuscular Volume 94.9 fL (81-99); Mean Platelet Vol. 10.7 fl (6.2-12.0); Monocyte# 0.58 X10^3/uL; NRBC Flagged by Analyzer 0 % (0-5); Neutrophil # 4.01 X10^3/uL (2.7-7.7); Neutrophil % 48.9 % (47-70); Platelet Count 260 K/mm3 (150-450); RBC Distribution Width SD 48.5 fl (35.1-43.9); Red Blood Count 3.93 M/mm3 (4.2-5.4); White Blood Count 8.2 K/mm3 (4.4-11.0)
[2023-08-19] MEDS: DiphenhydrAMINE 50 MG/ML Syringe 25 MG IV (21:16)
[2023-08-19] MEDS: 0.9% Normal Saline (1000mL) 1,000 ML 999 ML IV (21:16)
[2023-08-19 21:22] LABS: Bedside Glucose 128 mg/dL (74-106)
[2023-08-19 21:28] LABS: International Normalized Ratio 0.9; Prothrombin Time (Protime)PT. 12.5 SECONDS (11.7-14.9)
[2023-08-19 21:29] LABS: Partial Thromboplast Time 30.2 Seconds (24.1-36.2)
[2023-08-19 21:30] LABS: Anion Gap 9 (5-15); BUN 26 mg/dL (7-18); BUN/Creat Ratio 23.6 RATIO (10-20); Calcium,Total 9.2 mg/dL (8.5-10.1); Chloride 107 mmol/L (98-107); EST Glomerular Filtration Rate 52 mL/min (>60); Est Glom Filt Rate - Afr Amer 63 mL/min (>60); Glucose 135 mg/dL (74-106); Potassium 4.1 mmol/L (3.5-5.1); Sodium Level 139 mmol/L (136-145); Troponin-I HS 4 pg/mL (3.0-54.0)
--- NOTE | 2023-08-19 22:01 | PCM.HP.STD ---
[facility] - General General Date of Admission: 08/19/23 Date of Service: 08/19/23 Chief Complaint: Headache with Left Facial Numbness. [facility] Narrative COLE MALDONADO, is a 67 F with a past medical history of hyperlipidemia, overweight; with BMI of 27.2 this admission, DM-2; of unknown control on metformin, chronic ongoing tobacco abuse; ~1 ppd x ~46 years, CKD; stage III, history of renal calculi; s/p lithotripsy, history of concussions x 2; with subsequent migraine headaches, history of neuropathy of the left arm; she states was attributed to excessive vibration from sewing, depression, fibromyalgia, history of leg cramps, GERD, osteoarthritis and recently diagnosed sinusitis treated with oral clarithromycin by her PCP who presents to [facility] ER complaining of headache with Left facial numbness. Ms. Maldonado reports her symptoms began approximately 1 week prior to admission when she developed a headache which she attributed to excessive vibration from sewing. Then 3 hours prior to arrival she developed numbness in the Left side of her face along with a sensation of droopiness in the left side of her face. She is not complaining of facial pain and her face is notably not drooping at this time but she does admit to ongoing headache that she describes as her whole head with light sensitivity and sound sensitivity. She states the numbness in her Left shoulder and Left leg are chronic for her but the Left facial numbness is new. She denies associated fever, chills, nausea, vomiting, focal neurologic weakness or slurred speech. In the ER she was noted to have a CT of the head that was negative for acute pathologic changes and she was tentatively diagnosed diagnosed with suspected migraine causing facial paresthesias with an NIH score of 1 and she was then admitted to the PCU under observation status to undergo a CVA workup for stay that is expected to be less than 2 midnights. [facility] Medical History Depression Chronic pain Osteoporosis GERD (gastroesophageal reflux disease) Trigger thumb, right thumb Left ureteral calculus Wears glasses Anxiety Diabetes Arthritis Ambulates with cane CKD (chronic kidney disease), stage III Urinary incontinence High cholesterol Injury of head and neck Dietary restriction Heartburn Chronic cough Smoker Leg cramps History of edema Constipation Hyperlipidemia Fibromyalgia Diabetes Home Medications ?Medication ?Instructions ?Recorded ?Last Taken ?Type metformin 500 mg tablet 850 mg PO BIDCM 07/31/13 05/30/23 17:00 History pravastatin 20 mg tablet 20 mg PO QHS 07/31/13 05/30/23 20:00 History acetaminophen 650 mg 650 mg PO Q8H 07/05/23 Unknown History tablet,extended release albuterol sulfate 90 mcg/actuation 2 puff inhalation Q4H PRN 07/05/23 Unknown History aerosol inhaler shortness of breath or wheezing cholecalciferol (vitamin D3) 50 50 mcg PO DAILY 07/05/23 Unknown History mcg (2,000 unit) capsule methocarbamol 500 mg tablet 500 mg PO .QID PRN muscle spasm 07/05/23 Unknown History paroxetine HCl 30 mg tablet (Paxil) 40 mg PO QHS 07/05/23 Unknown History Allergy/AdvReac Type Severity Reaction Status Date / Time moxifloxacin HCl (From Allergy Other Verified 07/12/23 14:01 Avelox) Penicillins Allergy Nausea Verified 07/12/23 14:01 cefuroxime (From Ceftin) AdvReac Other Verified 07/12/23 14:01 doxycycline AdvReac Nausea Verified 07/12/23 14:01 prednisone AdvReac Other Verified 07/12/23 14:01 sulfamethoxazole (From AdvReac Vomiting Verified 07/12/23 14:01 Bactrim) trimethoprim (From Bactrim) AdvReac Vomiting Verified 07/12/23 14:01 Surgical History History of removal of retained hardware History of tonsillectomy History of ankle surgery History of bunionectomy of left great toe History of endoscopic sinus surgery History of endoscopic sinus surgery History of lithotripsy History of salpingectomy History of surgery of uterus History of cholecystectomy History of hysterectomy H/O hand surgery Social History household members: none Smoking Status: Current every day smoker tobacco type: cigarettes substance use type: does not use ROS ROS Narrative Review of systems: General: Patient denies fever or chills. HENT: Denies headache, denies stuffy nose, denies sore throat EYES: Denies changes in vision or discharge from eyes. Resp: Denies cough, denies shortness of breath Cardiac: Denies chest pain, palpitations or heart racing. GI: Denies abdominal pain, denies changes in bowel, had some nausea : Denies changes in urination Extremity: Denies swelling Musculoskeletal: Patient denies arthralgias or myalgias. Neuro: Patient admits to ongoing headache and Left facial numbness and a feeling of Left facial droopiness as per HPI. Heme: Denies any bleeding or bruising Skin: Denies rashes Psychiatric: No complaints voiced related uncontrolled depression or anxiety. Endocrine: No polyuria, polydipsia or polyphagia. The rest of the 14 point ROS was negative except for positives in HPI. Vital Signs Vital Signs Vital Signs: 08/19/23 20:32 08/19/23 20:38 08/19/23 20:52 Temperature 97.6 F L Temperature Source Temporal Pulse Rate 76 93 78 Respiratory Rate 15 18 18 Blood Pressure 127/68 H 148/74 H Blood Pressure Mean 87 98 Pulse Ox 96 96 Oxygen Delivery Method Room Air Room Air Room Air 08/19/23 20:53 08/19/23 21:20 08/19/23 21:30 Temperature Temperature Source Pulse Rate 68 63 Respiratory Rate 18 18 Blood Pressure 148/83 H 152/75 H Blood Pressure Mean 104 100 Pulse Ox 96 96 Oxygen Delivery Method Room Air Room Air Weight Weight: 153 lb 10.595 oz Body Mass Index (BMI) 27.2 Physical Exam Const alert, oriented x3, no apparent distress, average body habitus and healthy appearing General Appearance: cooperative HEENT normocephalic, head/scalp atraumatic, hearing grossly normal bilaterally and moist oral mucous membranes Eyes PERRL and EOMs intact bilaterally Neck no lymphadenopathy and supple Resp normal respiratory effort, no retractions, no use of accessory muscles and clear to auscultation bilaterally Cardio regular rate and regular rhythm GI normal to inspection, nondistended, normoactive bowel sounds, soft to palpation, non-tender and non-distended Extremity normal to inspection, full ROM and no clubbing, cyanosis or edema Skin Skin Narrative: Patient has no evidence of jaundice or rash. Neuro oriented x3, CN's II-XII intact bilaterally, moves all extremities and no focal motor deficits Sensorium / Orientation: awake, alert, oriented to person, oriented to place and oriented to time Speech: speech normal Motor Exam: strength 5/5 throughout Psych affect normal Results Medical Records Data Attestation: I reviewed the patient's medical records Lab / Micro Data Attestation: I reviewed the patient's lab results. 08/19/23 20:50 08/20/23 05:15 Labs: Laboratory Results - last 24 hr 08/19/23 20:50: WBC 8.2, RBC 3.93 L, Hgb 11.7 L, Hct 37.3, MCV 94.9, MCH 29.8, MCHC 31.4 L, RDW Std Deviation 48.5 H, RDW Coeff of Kenrick 14.0, Plt Count 260, MPV 10.7, Immature Gran % (Auto) 0.200, Neut % (Auto) 48.9, Lymph % (Auto) 41.4 H, [place] % (Auto) 7.0, Eos % (Auto) 1.8, Baso % (Auto) 0.7, Absolute Neuts (auto) 4.0, Absolute Lymphs (auto) 3.41, Nucleated RBC % 0, PT 12.5, INR 0.9, APTT 30.2, Sodium 139, Potassium 4.1, Chloride 107, Carbon Dioxide 23.0, Anion Gap 9, BUN 26 H, Creatinine 1.10 H, Estim Creat Clear Calc 45.20, Est GFR (MDRD) Af Amer 63, Est GFR (MDRD) Non-Af 52 L, BUN/Creatinine Ratio 23.6 H, Glucose 135 H, Calcium 9.2, Troponin I High Sens 4 08/19/23 21:01: POC Glucose 128 H Imaging Radiology Impression Brain CT 08/19/23 20:50 IMPRESSION: No acute intracranial pathology. AIDOC was utilized to assist in identifying pertinent positive findings. Electronically Signed: Awais Aponte MD at 21:44 EDT , Assessment & Plan Assessment/Plan (1) Headache: QUALIFIERS: Headache chronicity pattern: episodic headache Headache type: unspecified Intractability: not intractable Qualified Code(s): R51.9 - Headache, unspecified (2) Facial paresthesia: (3) History of multiple concussions: (4) Tobacco abuse: (5) Diabetes mellitus, type 2: QUALIFIERS: Diabetes mellitus complication status: with other specified complication Diabetes mellitus [facility] insulin use: without termite treater use Qualified Code(s): E11.69 - Type 2 diabetes mellitus with other specified complication (6) Hyperlipidemia: QUALIFIERS: Hyperlipidemia type: mixed hyperlipidemia Qualified Code(s): E78.2 - Mixed hyperlipidemia (7) Fibromyalgia: (8) Neuropathy: PLAN: Plan 1. Migraine headache with Left facial paresthesias also concerning for possible CVA in the setting of known previous migraine headaches after concussions x 2 - Admit to PCU under observation status. Start treatment with empiric aspirin and statin. Check MRI of the brain to evaluate for evidence of acute stroke. Check carotid Doppler to evaluate for evidence of stenosis. Check echocardiogram to evaluate LVEF. Allow for 'permissive hypertension' until CVA is definitively ruled out. Check lipid profile and hemoglobin A1c to enhance her metabolic evaluation. Start daily magnesium supplementation for migraine suppression. Finally, we will consult [facility] to see this patient this admission for further recommendations without appreciated in advance. 2. Chronic ongoing tobacco abuse; ~1 ppd x ~46 years complicating #1 - Smoking cessation was strongly encouraged with nicotine patch offered to control cravings. 3. 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 Will start empiric low-dose Lyrica and then monitor for improvement. 4. Recently diagnosed sinusitis treated with oral clarithromycin - Noted with no signs of residual infection at this time. 5. Hyperlipidemia - Resume pravastatin and check lipid profile in light of #1. 6. Overweight; with BMI of 27.2 this admission - Weight loss will be recommended 7. DM-2; of unknown control on metformin - ADA diet. FSBS Q. ACHS plus lowest intensity SSI. Check hemoglobin A1c to objectively evaluate quality of diabetic control. Metformin will be held while she is in inpatient. 8. CKD; stage III - Stable. 9. History of renal calculi; s/p lithotripsy - Noted. 10. Depression - Continue home regimen. 11. Fibromyalgia - Stable. 12. History of leg cramps - Noted. 13. GERD - Patient currently not on treatment. We will start Protonix if symptoms develop. 14. Osteoarthritis - Give Tylenol prn. 15. DVT prophylaxis - Lovenox 40 mg sq daily. Total time: Approximately 85 minutes. Charges/Coding Visit Charges OBSV E&M: 57092 Observ/hosp same date L3
[2023-08-19] MEDS: Aspirin 81 MG TAB.CHEW 324 MG PO (22:11)
--- NOTE | 2023-08-19 22:38 | ECHOD_ITS ---
Reason For Study: TIA/CVA Procedure This was a 2D Doppler, Color Flow transthoracic echocardiogram. Exam performed portable in patient room. Left Ventricle Normal LV size. The estimated ejection fraction is 70 %. No evidence for diastolic dysfunction. No regional wall motion abnormalities noted. Right Ventricle Normal RV size. Normal systolic function. Atria The left and right atria are normal. Bubble contrast study negative for right to left interatrial shunt. No doppler evidence for ASD. Mitral Valve There is no mitral valve stenosis. No mitral valve insufficiency. Tricuspid Valve There is no tricuspid stenosis. Trivial tricuspid valve insufficiency. Pulmonary artery systolic pressure is 30 mmHg. Aortic Valve Trisinus/trileaflet aortic valve. There is no aortic stenosis. No aortic valve insufficiency. Pulmonic Valve There is no pulmonic valvular stenosis. No pulmonic valve insufficiency. Great Vessels Normal aortic root. Pericardium/Pleural No pericardial effusion. Medication Performed a rapid injection of agitated mix of 9 cc saline and 1cc air to assess for atrial septal defect. MMode/2D Measurements & Calculations LVIDd: 4.0 cm IVSd: 1.0 cm LVOT diam: 1.9 cm LVIDs: 2.1 cm LVPWd: 0.75 cm RVDd: 3.5 cm FS: 48.4 % LVOT area: 2.7 cm2 Ao root diam: 3.2 cm LAV(MOD-bp): 34.8 ml LVAd ap4: 18.1 cm2 LAV(MOD-bp) Indexed: 20.1 ml/m2 LVLd ap4: 6.9 cm LAV(MOD-sp2): 44.5 ml EDV(MOD-sp4): 38.6 ml LAV(MOD-sp4): 24.0 ml EDV(sp4-el): 40.5 ml LVAs ap4: 9.2 cm2 LVLs ap4: 5.7 cm ESV(MOD-sp4): 13.5 ml ESV(sp4-el): 12.6 ml EF(MOD-sp4): 65.1 % EF(sp4-el): 68.9 % LVAd ap2: 16.3 cm2 SV(MOD-sp4): 25.1 ml SV(MOD-sp2): 21.1 ml LVLd ap2: 6.8 cm EDV(MOD-sp2): 33.7 ml EDV(sp2-el): 33.3 ml LVAs ap2: 9.0 cm2 LVLs ap2: 5.6 cm ESV(MOD-sp2): 12.6 ml ESV(sp2-el): 12.3 ml EF(MOD-sp2): 62.5 % SV(sp4-el): 27.9 ml LA dimension(2D): 3.3 cm LA A4 area: 11.3 cm2 RA A4 area: 10.2 cm2 TAPSE: 1.8 cm Time Measurements MV dec time: 0.25 sec Doppler Measurements & Calculations MV E max abhinav: 70.8 cm/sec Lat Peak E' Abhinav: 7.6 cm/sec Med Peak E' Abhinav: 8.0 cm/sec MV A max abhinav: 76.0 cm/sec E/E' lat: 9.3 E/E' med: 8.8 MV E/A: 0.93 Ao V2 max: 140.1 cm/sec LV V1 max: 101.4 cm/sec MV dec slope: 280.6 cm/sec2 Ao max P.9 mmHg LV V1 max P.1 mmHg Ao V2 mean: 94.9 cm/sec LV V1 mean P.4 mmHg Ao mean P.1 mmHg LV V1 mean: 72.5 cm/sec Ao V2 VTI: 37.2 cm LV V1 VTI: 28.1 cm AV (velocity ratio): 0.76 WILLIAMS(I,D): 2.1 cm2 WILLIAMS(V,D): 2.0 cm2 SV(LVOT): 77.1 ml PA V2 max: 90.9 cm/sec TR max abhinav: 251.2 cm/sec PA max PG (full): 1.7 mmHg TR max P.2 mmHg ECHO/Echo Complete Interpretation Summary The estimated ejection fraction is 70 %. No evidence for diastolic dysfunction. Ordering Physician: Jt Yeh Performed By: Anna Joel RDCS
[2023-08-19 23:17] LABS: Phosphorus 3.2 mg/dL (2.5-4.9)
[2023-08-19 23:47] LABS: Magnesium 1.8 mg/dL (1.6-2.6); Thyroid Stim Hormone (TSH) 2.41 uIU/mL (0.358-3.74)
[2023-08-20] MEDS: 0.9% Normal Saline (1000mL) 1,000 ML 60 ML IV (00:04)
[2023-08-20] MEDS: Magnesium Chloride 64 MG Delay Rel.Tablet 128 MG PO ×2 (00:04→09:49)
[2023-08-20 00:55] VITALS: O2SAT 97
[2023-08-20 02:05] VITALS: BP 129/67; PULSE 69; RESP 18; TEMP 36.6; O2SAT 97
[2023-08-20 06:05] VITALS: BP 128/83; PULSE 64; RESP 18; TEMP 36.6; O2SAT 95
[2023-08-20 06:34] LABS: Bedside Glucose 108 mg/dL (74-106)
[2023-08-20 06:42] LABS: AST(SGOT) 15 U/L (15-37); Alanine Aminotransfer ALT/SGPT 18 U/L (13-56); Albumin, Serum 3.1 g/dL (3.2-5.0); Alkaline Phosphatase 65 U/L (45-117); Anion Gap 7 (5-15); BUN 21 mg/dL (7-18); BUN/Creat Ratio 22.8 RATIO (10-20); Calcium,Total 8.6 mg/dL (8.5-10.1); Chloride 113 mmol/L (98-107); Cholesterol 147 mg/dL (200); Creatinine, Serum 0.92 mg/dL (0.55-1.02); EST Glomerular Filtration Rate 64 mL/min (>60); Est Glom Filt Rate - Afr Amer 78 mL/min (>60); Estimated Creatinine Clearance 54.01 ml/min; Globulin 3.1 g/dL (2.2-4.2); Glucose 104 mg/dL (74-106); High Density Lipoprotein 57 mg/dL; Protein, Total 6.2 g/dL (6.4-8.2); Sodium Level 142 mmol/L (136-145); Triglycerides 138 mg/dL; Very Low Density Lipoprotein 28 mg/dL (5-40)
--- NOTE | 2023-08-20 07:37 | CT_ITS ---
HISTORY: headache facial paresthesias. TECHNIQUE: [place]/head and carotid CT angiogram protocol was performed after the intravenous administration of 100 mL Isovue 370. NASCET criteria using the distal ICAs for comparison were used for evaluation of stenoses. 3D reconstructions were reviewed. A radiation dose optimization technique was used for this scan. 1903 images. COMPARISON: CTA prior day. FINDINGS: AORTIC ARCH AND BRANCHES: No significant stenosis. Very mild calcified plaque at the origin of the left common carotid artery. RIGHT CCA: No occlusion, significant stenosis or dissection. RIGHT ICA: No occlusion, significant stenosis or dissection. LEFT CCA: No occlusion, significant stenosis or dissection. Very mild calcified plaque at the bifurcation. LEFT ICA: Limited evaluation due to motion artifact. No occlusion. RIGHT VERTEBRAL ARTERY: No occlusion, significant stenosis or dissection. LEFT VERTEBRAL ARTERY: No occlusion, significant stenosis or dissection. OTHER: Mild frontal ethmoid sinus mucosal thickening. Degenerative changes of the cervical spine. ICAs: No significant stenosis at the intracranial/visualized segments. Minimal calcified plaque at the carotid siphons. ACAs: No significant stenosis at the visualized segments. Hypoplastic right anterior cerebral artery. MCAs: No significant stenosis at the visualized segments. sewing trimmer: No significant stenosis at the visualized segments. BASILAR ARTERY: No significant stenosis. VERTEBRAL ARTERIES: No significant stenosis at the intradural/visualized segments. No evidence of intracranial aneurysm or vascular malformation. CT/CTA Head AND Neck W/ Contrast IMPRESSION: No evidence for significant stenosis or occlusion in the carotid or vertebral arteries of the neck. Motion artifact limits evaluation of the right internal carotid artery in the neck. No evidence for large vessel occlusion in the [place] region. Electronically Signed: Lou Hayes MD at 8:46 EDT ,
[2023-08-20 07:38] VITALS: O2SAT 98
[2023-08-20 08:04] VITALS: BMI 27.1
--- NOTE | 2023-08-20 09:00 | MRI_ITS ---
HISTORY: Please evaluate for possible CVA. TECHNIQUE: Multiplanar and multisequence MR images of the brain were obtained without contrast. 277 images. COMPARISON: CT prior day. FINDINGS: BRAIN PARENCHYMA: Very mild periventricular white matter changes. No abnormal focus of restricted diffusion. No acute intracranial hemorrhage identified. CSF SPACES: Mild volume loss. No significant midline shift or other mass effect.No extra-axial fluid collection. VASCULAR SYSTEM: Major intracranial flow voids are maintained. PARANASAL SINUSES AND MASTOID AIR CELLS: No significant air fluid levels. ORBITS: Bilateral lens resections. MRI/Brain without Contrast IMPRESSION: No evidence for acute infarct. Mild chronic involutional and white matter changes. Electronically Signed: Lou Hayes MD at 11:00 EDT ,
--- NOTE | 2023-08-20 09:29 | NEURO.CONS ---
Assessment and Plan: Neuro Assessment/Plan COLE MERCADO is a 67 F with a past medical history of DM and HLD being evaluated by Teleneurology for TIA CT head/CTA: no acute finding LDL 62 Diagnosis: TIA vs complicated migraines Plan: smoke cessation cont ASA 81 mg daily Statin MRI brain w.o cont TTE vascular risk modification HPI Consult Data Date of Consult: 08/20/23 HPI Narrative HPI Narrative: COLE MERCADO, is a 67 F who presents with headache and left face numbness. pt was working on her suing when she has sever pressure like headache with photophobia and phonophobia that is associated with left face numbness. no weakness, slurred speech vertigo, aphasia but she reports some unsteady wobbly gait . she does not usually get migraines or frequnt headaches. FOR[facility]LY [facility] Medical History Depression Chronic pain Osteoporosis GERD (gastroesophageal reflux disease) Trigger thumb, right thumb Left ureteral calculus Wears glasses Anxiety Diabetes Arthritis Ambulates with cane CKD (chronic kidney disease), stage III Urinary incontinence High cholesterol Injury of head and neck Dietary restriction Heartburn Chronic cough Smoker Leg cramps History of edema Constipation Hyperlipidemia Fibromyalgia Diabetes Home Medications ?Medication ?Instructions ?Recorded ?Last Taken ?Type metformin 500 mg tablet 850 mg PO BIDCM 07/31/13 05/30/23 17:00 History pravastatin 20 mg tablet 20 mg PO QHS 07/31/13 05/30/23 20:00 History acetaminophen 650 mg 650 mg PO Q8H 07/05/23 Unknown History tablet,extended release albuterol sulfate 90 mcg/actuation 2 puff inhalation Q4H PRN 07/05/23 Unknown History aerosol inhaler shortness of breath or wheezing cholecalciferol (vitamin D3) 50 50 mcg PO DAILY 07/05/23 Unknown History mcg (2,000 unit) capsule methocarbamol 500 mg tablet 500 mg PO .QID PRN muscle spasm 07/05/23 Unknown History paroxetine HCl 30 mg tablet (Paxil) 40 mg PO QHS 07/05/23 Unknown History Allergy/AdvReac Type Severity Reaction Status Date / Time moxifloxacin HCl (From Allergy Other Verified 07/12/23 14:01 Avelox) Penicillins Allergy Nausea Verified 07/12/23 14:01 cefuroxime (From Ceftin) AdvReac Other Verified 07/12/23 14:01 doxycycline AdvReac Nausea Verified 07/12/23 14:01 prednisone AdvReac Other Verified 07/12/23 14:01 sulfamethoxazole (From AdvReac Vomiting Verified 07/12/23 14:01 Bactrim) trimethoprim (From Bactrim) AdvReac Vomiting Verified 07/12/23 14:01 Surgical History History of removal of retained hardware History of tonsillectomy History of ankle surgery History of bunionectomy of left great toe History of endoscopic sinus surgery History of endoscopic sinus surgery History of lithotripsy History of salpingectomy History of surgery of uterus History of cholecystectomy History of hysterectomy H/O hand surgery Social History household members: none Smoking Status: Current every day smoker tobacco type: cigarettes substance use type: does not use Vital Signs Vital Signs Vital Signs: 08/19/23 20:32 08/19/23 20:38 08/19/23 20:52 Temperature 97.6 F L Temperature Source Temporal Pulse Rate 76 93 78 Pulse Strength Respiratory Rate 15 18 18 Respiratory Effort Respiratory Depth Respiratory Pattern Blood Pressure 127/68 H 148/74 H Blood Pressure Mean 87 98 Blood Pressure Source Blood Pressure Position Blood Pressure Location Pulse Ox 96 96 Oxygen Delivery Method Room Air Room Air Room Air 08/19/23 20:53 08/19/23 21:20 08/19/23 21:30 Temperature Temperature Source Pulse Rate 68 63 Pulse Strength Respiratory Rate 18 18 Respiratory Effort Respiratory Depth Respiratory Pattern Blood Pressure 148/83 H 152/75 H Blood Pressure Mean 104 100 Blood Pressure Source Blood Pressure Position Blood Pressure Location Pulse Ox 96 96 Oxygen Delivery Method Room Air Room Air 08/19/23 21:38 08/19/23 22:00 08/19/23 22:07 Temperature 98.0 F Temperature Source Pulse Rate 75 75 Pulse Strength Respiratory Rate 18 18 Respiratory Effort Respiratory Depth Respiratory Pattern Blood Pressure 142/76 H 142/76 H 142/76 H Blood Pressure Mean 98 98 98 Blood Pressure Source Blood Pressure Position Blood Pressure Location Pulse Ox 96 96 Oxygen Delivery Method Room Air 08/19/23 22:30 08/19/23 23:45 08/20/23 00:25 Temperature 97.7 F L Temperature Source Oral Pulse Rate 65 62 Pulse Strength Respiratory Rate 18 18 Respiratory Effort Normal Non-Labored Respiratory Depth Normal Respiratory Pattern Normal Blood Pressure 118/90 H 146/86 H Blood Pressure Mean 99 106 Blood Pressure Source Monitor Blood Pressure Position Semi-Fowlers Blood Pressure Location Right Arm Pulse Ox 99 100 Oxygen Delivery Method Room Air Room Air Room Air 08/20/23 00:55 08/20/23 02:05 08/20/23 06:05 Temperature 97.8 F 97.9 F Temperature Source Oral Oral Pulse Rate 69 64 Pulse Strength Respiratory Rate 18 18 Respiratory Effort Respiratory Depth Respiratory Pattern Blood Pressure 129/67 H 128/83 H Blood Pressure Mean 87 98 Blood Pressure Source Monitor Monitor Blood Pressure Position Semi-Fowlers Semi-Fowlers Blood Pressure Location Right Arm Left Arm Pulse Ox 97 97 95 Oxygen Delivery Method Room Air Room Air Room Air 08/20/23 07:38 08/20/23 08:06 Temperature Temperature Source Pulse Rate Pulse Strength Normal (2+) Respiratory Rate Respiratory Effort Respiratory Depth Respiratory Pattern Blood Pressure Blood Pressure Mean Blood Pressure Source Blood Pressure Position Blood Pressure Location Pulse Ox 98 Oxygen Delivery Method Room Air Weight Weight: 69.6 kg Body Mass Index (BMI) 27.1 EEG Results Procedure Details EEG Procedure Details: COLE MERCADO is a 67 year old F with a past medical history of , who presents for evaluation of Electroencephalogram on DATE at TIME NIHSS NIHSS Nursing Documentation NIHSS Nursing Documentation: NIHSS: Ischemic Stroke/TIA Start: 08/19/23 23:33 Text: For PCU Patients: NIH and Neuro Check every 4 Status: Active hours, PRN and with change in RN caregiver. Freq: [id number] Protocol: Activity Type Activity Date Activity User E-sign Co-sign Detail Recorded Client Recorded Date Recorded By Document 08/20/23 06:05 HJ [id number] 08/20/23 06:12 08/20/23 06:05 NIH Stroke Scale [NIHSS] A score of 0 is normal or asymptomatic . Total possible score is 42. Inpatient: RN or Physician to activate a stroke alert for onset of new stroke symptoms or with NIHSS increase >/= 3 points. Following change in neurological status, NIHSS will be performed per physician order or more frequently PRN. -1a. Level of Consciousness Alert; keenly responsive -1b. LOC Questions Answers BOTH questions correctly. -1c. LOC Commands Performs both tasks correctly . -2. Best Gaze Normal -3. Visual No visual loss -4. Facial Palsy Normal symmetrical movements -5a. Left Arm No drift; arm holds 90 (or 45 ) degrees for full 10 seconds -5b. Right Arm No drift; arm holds 90 (or 45 ) degrees for full 10 seconds -6a. Left Leg No drift; leg holds 30-degree position for full 5 seconds -6b. Right Leg No drift; leg holds 30-degree position for full 5 seconds -7. Limb Ataxia Absent -8. Sensory Normal; no sensory loss -9. Best Language No aphasia; normal -10. Dysarthria Normal -11. Extinction and Inattention No abnormality -Total 0 Query Text:A score of 0 is normal or asymptomatic. Total possible score is 42 . ED: Notify Physician for NIHSS increase by > / = 3 points. Inpatient: RN or Physician to activate a stroke alert for NIHSS increase of > / = 3 points. Coma Scale [Assess] -Eye Opening Spontaneous -Motor Obeys Commands -Verbal Oriented [Total] -Coma Scale Total 15 Physical Exam Neuro Neuro Narrative: awake alert oriented x3 following commands PERRLA, EMOI face symmetric move all ext with no drift sensation intact Lab / Micro Data 08/19/23 20:50 08/20/23 05:15 Labs: Laboratory Results - last 24 hr 08/19/23 20:50: WBC 8.2, RBC 3.93 L, Hgb 11.7 L, Hct 37.3, MCV 94.9, MCH 29.8, MCHC 31.4 L, RDW Std Deviation 48.5 H, RDW Coeff of [place] 14.0, Plt Count 260, MPV 10.7, Immature Gran % (Auto) 0.200, Neut % (Auto) 48.9, Lymph % (Auto) 41.4 H, [place] % (Auto) 7.0, Eos % (Auto) 1.8, Baso % (Auto) 0.7, Absolute Neuts (auto) 4.0, Absolute Lymphs (auto) 3.41, Nucleated RBC % 0, PT 12.5, INR 0.9, APTT 30.2, Sodium 139, Potassium 4.1, Chloride 107, Carbon Dioxide 23.0, Anion Gap 9, BUN 26 H, Creatinine 1.10 H, Estim Creat Clear Calc 45.20, Est GFR (MDRD) Af Amer 63, Est GFR (MDRD) Non-Af 52 L, BUN/Creatinine Ratio 23.6 H, Glucose 135 H, Hemoglobin A1c 6.0 H, Calcium 9.2, Phosphorus 3.2, Magnesium 1.8, Troponin I High Sens 4, Folate 23.80, TSH 2.41 08/19/23 21:01: POC Glucose 128 H 08/20/23 05:15: Sodium 142, Potassium 4.0, Chloride 113 H, Carbon Dioxide 22.0, Anion Gap 7, BUN 21 H, Creatinine 0.92, Estim Creat Clear Calc 54.01, Est GFR (MDRD) Af Amer 78, Est GFR (MDRD) Non-Af 64, BUN/Creatinine Ratio 22.8 H, Glucose 104, Calcium 8.6, Total Bilirubin 0.40, AST 15, ALT 18, Alkaline Phosphatase 65, Total Protein 6.2 L, Albumin 3.1 L, Globulin 3.1, Albumin/Globulin Ratio 1.0, Triglycerides 138, Cholesterol 147, LDL Cholesterol 62, VLDL Cholesterol 28, HDL Cholesterol 57 08/20/23 06:15: POC Glucose 108 H Imaging Radiology Impression Brain CT 08/19/23 20:50 IMPRESSION: No acute intracranial pathology. AIDOC was utilized to assist in identifying pertinent positive findings. Electronically Signed: Awais Aponte MD at 21:44 EDT Reading Location ID and State: [facility] / [place] Tel , Service support , Head/Neck CTA 08/20/23 07:37 IMPRESSION: No evidence for significant stenosis or occlusion in the carotid or vertebral arteries of the neck. Motion artifact limits evaluation of the right internal carotid artery in the neck. No evidence for large vessel occlusion in the [place] region. Electronically Signed: Lou Hayes MD at 8:46 EDT , Active Medications Active Medications Active Medications: Current Medications Generic Name Dose Route Start Last Admin Trade Name Freq PRN Reason Stop Dose Admin Acetaminophen 650 mg 08/19/23 23:33 Acetaminophen 325 Mg Tablet PO Q8H PRN PRN Pain Score 1-10 Albuterol Sulfate 2.5 mg 08/19/23 23:33 Albuterol 2.5 Mg/3 Ml Vial.Neb. INHALATION Q4H PRN PRN shortness of breath/wheezing Aspirin 81 mg 08/20/23 08:00 Aspirin 81 Mg Tab.Chew PO BREAKFAST [facility] Cholecalciferol 50 mcg 08/20/23 10:00 Cholecalciferol (Vit D3) 25 Mcg Tablet (1,000 Units) PO DAILY [facility] Enoxaparin Sodium 40 mg 08/20/23 10:00 Enoxaparin 40 Mg/0.4 Ml Syringe SC DAILY [facility] Sodium Chloride 1,000 mls @ 60 mls/hr 08/19/23 23:33 08/20/23 00:04 IV 60 mls/hr .[id number] JT Administration Insulin Human Lispro 0 unit 08/20/23 07:00 08/20/23 06:16 Insulin Lispro 100 Unit/Ml Insuln.Pen SC Not Given ACHS [facility] Protocol Magnesium Chloride 128 mg 08/19/23 23:33 08/20/23 00:04 Magnesium Chloride 64 Mg Delay Rel.Tablet PO 128 mg BID JT Administration Methocarbamol 500 mg 08/19/23 23:33 Methocarbamol 500 Mg Tablet PO 4X/DAY PRN PRN muscle spasm Paroxetine HCl 40 mg 08/20/23 22:00 Paroxetine 20 Mg Tablet PO QHS [facility] Pravastatin Sodium 20 mg 08/20/23 22:00 Pravastatin 20 Mg Tablet PO QHS [facility] Pregabalin 25 mg 08/20/23 10:00 Pregabalin 25 Mg Capsule PO BID [facility] Sodium Chloride 10 - 40 ml 08/19/23 23:45 0.9% Saline Lock 10 Ml Syringe IV UD PRN SALINE FLUSH
[2023-08-20 09:40] VITALS: BP 115/86; PULSE 66; RESP 18; TEMP 36.3; O2SAT 95
[2023-08-20] MEDS: Cholecalciferol (VIT D3) 25 MCG TABLET (1,000 UNITS) 50 MCG PO (09:48)
[2023-08-20] MEDS: Acetaminophen 325 MG Tablet 650 MG PO (09:48)
[2023-08-20] MEDS: Aspirin 81 MG TAB.CHEW PO (09:49)
[2023-08-20] MEDS: Pregabalin 25 MG Capsule PO (10:50)
[2023-08-20] MEDS: Methocarbamol 500 MG Tablet PO (10:59)
[2023-08-20 11:14] LABS: Bedside Glucose 133 mg/dL (74-106)
--- NOTE | 2023-08-20 12:59 | DCINST_ITS ---
Discharge Instructions Diet Discharge Diet: 1800 Calorie Control Diet Activity Discharge Activity: Return to Normal Activity Weight Bearing Status: Full weight bearing Follow Up Care Test Results: Test results from this visit will be discussed in further detail at your follow- up appointment, if applicable. Discharge Plan Admission Admit Date/Time: 08/19/23 22:29 Primary Reason for Your Visit: migrane vs TIA Attending Provider: Saleem Ashford Primary Care Provider: Ashli Silva Consulting Providers: Amador Calvillo; Yoel Kerns; Sandra Barker; Tiffany Pearl; Radha Mckee; Michael Martinez; Nicole Pat; Dayne Doyle; Dorian Salazar; Kitty Schafer; Florin Durbin; Kavita Cifuentes; Tima Garzon; Gil Terry; Jose Carrillo; Kelsey Suarez; Izaiah Montiel; Nitza Cameron; Carley Mckenzie; Jt Yeh Discharge Orders/Prescriptions Prescriptions: New aspirin 81 mg Tablet,Chewable 81 mg PO BREAKFAST Qty: 0 0RF Continued acetaminophen 650 mg tablet extended release 650 mg PO Q8H albuterol sulfate 90 mcg/actuation HFA aerosol inhaler 2 puff inhalation Q4H PRN (Reason: shortness of breath or wheezing) cholecalciferol (vitamin D3) 50 mcg (2,000 unit) capsule 50 mcg PO DAILY methocarbamol 500 mg tablet 500 mg PO .QID PRN (Reason: muscle spasm) metformin 500 MG tablet 850 mg PO BIDCM Patient Comments: DIABETES pravastatin 20 MG tablet 20 mg PO QHS Patient Comments: CHOLESTEROL paroxetine HCl [Paxil] 30 mg tablet 40 mg PO QHS Patient Comments: DEPRESSION/ ANXIETY Referrals / Follow Up: Ashli Silva, PA [Primary Care Provider] - Within 1 Month Disposition Disposition (needs filled in before D/C Order can be placed): Home, Self Care
--- NOTE | 2023-08-20 13:46 | PCM.DC.SUM ---
Providers Date of Admission: 08/19/23 Date of Discharge: 08/20/23 Primary Care Physician: EDGARDO Chawla Consultations 08/19/23 23:33 Consult: Tele-Neurology Routine Consulting Provider: [facility] Reason for Consult: Acute Ischemic Stroke/TIA EMERGENT Consult: No MD Notified: Yes Date Notified: 08/19/23 Time Notified: 00:10 Method of Notification: Answering Service Method of Consult:: Telemedicine Nursing Unit Staff Notify [facility] of Tele-Neurology Consult: Yes Reason For Visit: HEADACHE WITH LEFT FACIAL PARESTHESIAS; EVALUATE Diagnosis Discharge Diagnosis (1) Headache: Status: Acute Code(s): R51.9 - Headache, unspecified (2) Facial paresthesia: Status: Acute Code(s): R20.2 - Paresthesia of skin (3) History of multiple concussions: Status: Acute Code(s): Z87.820 - Personal history of traumatic brain injury (4) Tobacco abuse: Status: Acute Code(s): Z72.0 - Tobacco use (5) Diabetes mellitus, type 2: Status: Acute Code(s): E11.9 - Type 2 diabetes mellitus without complications (6) Hyperlipidemia: Status: Acute Code(s): E78.5 - Hyperlipidemia, unspecified (7) Fibromyalgia: Status: Acute (8) Neuropathy: Status: Acute Code(s): G62.9 - Polyneuropathy, unspecified Plan 1. Complex migraine #2 type 2 diabetes #3 hyperlipidemia #4 possible TIA Medications at Discharge Home Medications metformin 500 mg tablet 850 mg PO BIDCM diabetes 07/31/13 pravastatin 20 mg tablet 20 mg PO QHS cholesterol 07/31/13 acetaminophen 650 mg tablet,extended release 650 mg PO Q8H pain 07/05/23 albuterol sulfate 90 mcg/actuation aerosol inhaler 2 puff inhalation Q4H PRN shortness of breath or wheezing 07/05/23 cholecalciferol (vitamin D3) 50 mcg (2,000 unit) capsule 50 mcg PO DAILY vitamin 07/05/23 methocarbamol 500 mg tablet 500 mg PO .QID PRN muscle spasm 07/05/23 paroxetine HCl 30 mg tablet (Paxil) 40 mg PO QHS mental health 07/05/23 aspirin 81 mg chewable tablet 81 mg PO BREAKFAST #0 tabs 05/27/24 Hospital Course Operations None Procedures 2-D Echocardiogram Summary of Care Provided Minutes Spent on Discharge: 31 Hospital Course: This 67-year-old white female was seen in the emergency room at [facility] [place] presenting with a headache over several days. Patient also had a history of migraine cephalgia in the past. She complained that 3 hours before she came to the emergency room, she felt some numbness on the left side of her face, she denies any history of cerebrovascular disease. Patient's NIH stroke score was 1, CBC showed a normal white blood cell count, CT of the brain was negative for any acute findings. Patient was given aspirin in the emergency room, she was placed into observation status on PCU, echocardiogram was obtained which was unremarkable, patient had an MRI of the brain performed which was negative for acute stroke or other pathology, and patient had a CT of the head and neck which was unremarkable. At the time of my examination, patient stated she no longer had a headache. She was seen in consultation by teleneurology, a definite diagnosis could not be reached-it was felt that the patient either had a complex migraine or a TIA. This examiner felt that the presentation was more like a complex migraine. Patient was seen by PT and OT, lipid panel was obtained which showed an LDL cholesterol of 62. Patient's headache resolved during her hospitalization. On 08/20/2023, patient was seen and examined: On examination she appeared in good health and spirits, she does not appear to be in any distress. Vital signs as documented. Skin warm and dry and without overt rashes. Neck without JVD, thyroid appears normal, trachea is midline, neck is supple. Lungs clear, normal air movement was noted. Heart exam notable for regular rhythm, normal sounds and absence of murmurs, rubs or gallops. Abdomen unremarkable and without evidence of organomegaly, masses, or abdominal aortic enlargement, bowel sounds are present in all 4 quadrants, no abdominal tenderness was noted. Extremities nonedematous, no cyanosis was noted, no clubbing was noted. Neuro: Cranial nerves II through XII are grossly intact, no focal motor deficits were noted, sensation to light touch and pinprick is intact, motor exam 5/5 throughout. Psych: Patient is alert and oriented x3, she does not appear anxious or depressed, she does not appear agitated. Patient appears stable for discharge home on 08/20/2023. Weight / BMI Weight Weight: 69.6 kg Body Mass Index (BMI) 27.1 ABG / Lab / Microbiology Data 08/19/23 20:50 08/20/23 05:15 Laboratory: Laboratory Results - last 24 hr 08/19/23 20:50: WBC 8.2, RBC 3.93 L, Hgb 11.7 L, Hct 37.3, MCV 94.9, MCH 29.8, MCHC 31.4 L, RDW Std Deviation 48.5 H, RDW Coeff of [place] 14.0, Plt Count 260, MPV 10.7, Immature Gran % (Auto) 0.200, Neut % (Auto) 48.9, Lymph % (Auto) 41.4 H, Travis % (Auto) 7.0, Eos % (Auto) 1.8, Baso % (Auto) 0.7, Absolute Neuts (auto) 4.0, Absolute Lymphs (auto) 3.41, Nucleated RBC % 0, PT 12.5, INR 0.9, APTT 30.2, Sodium 139, Potassium 4.1, Chloride 107, Carbon Dioxide 23.0, Anion Gap 9, BUN 26 H, Creatinine 1.10 H, Estim Creat Clear Calc 45.20, Est GFR (MDRD) Af Amer 63, Est GFR (MDRD) Non-Af 52 L, BUN/Creatinine Ratio 23.6 H, Glucose 135 H, Hemoglobin A1c 6.0 H, Calcium 9.2, Phosphorus 3.2, Magnesium 1.8, Troponin I High Sens 4, Folate 23.80, TSH 2.41 08/19/23 21:01: POC Glucose 128 H 08/20/23 05:15: Sodium 142, Potassium 4.0, Chloride 113 H, Carbon Dioxide 22.0, Anion Gap 7, BUN 21 H, Creatinine 0.92, Estim Creat Clear Calc 54.01, Est GFR (MDRD) Af Amer 78, Est GFR (MDRD) Non-Af 64, BUN/Creatinine Ratio 22.8 H, Glucose 104, Calcium 8.6, Total Bilirubin 0.40, AST 15, ALT 18, Alkaline Phosphatase 65, Total Protein 6.2 L, Albumin 3.1 L, Globulin 3.1, Albumin/Globulin Ratio 1.0, Triglycerides 138, Cholesterol 147, LDL Cholesterol 62, VLDL Cholesterol 28, HDL Cholesterol 57 08/20/23 06:15: POC Glucose 108 H 08/20/23 10:54: POC Glucose 133 H Radiography Diagnostic Testing: Radiology Impression Brain CT 08/19/23 20:50 IMPRESSION: No acute intracranial pathology. AIDOC was utilized to assist in identifying pertinent positive findings. Electronically Signed: Awais Aponte MD at 21:44 EDT Reading Location ID and State: [facility] / [place] Tel , Service support , Echocardiogram 08/19/23 22:38 Interpretation Summary The estimated ejection fraction is 70 %. No evidence for diastolic dysfunction. Ordering Physician: Jt Yeh Performed By: Anna Joel, SUSIE Head/Neck CTA 08/20/23 07:37 IMPRESSION: No evidence for significant stenosis or occlusion in the carotid or vertebral arteries of the neck. Motion artifact limits evaluation of the right internal carotid artery in the neck. No evidence for large vessel occlusion in the [place] region. Electronically Signed: Lou Hayes MD at 8:46 EDT , Brain MRI 08/20/23 09:00 IMPRESSION: No evidence for acute infarct. Mild chronic involutional and white matter changes. Electronically Signed: Lou Hayes MD at 11:00 EDT , D/C Instructions Discharge Diet: 1800 Calorie Control Diet Weight Bearing Status: Full weight bearing Meaningful Use Info Meaningful Use Meaningful Use Diagnoses (Choose all that apply): None applicable Ischemic Stroke Statin Dosing Therapy Reference: STATIN DOSE THERAPY REFERENCE: * Patients > 75 years receive moderate or high dose statin therapy. * Patients 75 years or YOUNGER should receive HIGH intensity statin dose unless contraindicated. You will be required to document reason for non-treatment if statin daily dose does not meet guidelines. HIGH DOSE STATIN THERAPY DAILY Atorvastatin > than or = to 40 mg Rosuvastatin > than or = to 20 mg Amlodipine + Atorvastatin > than or = to 2.5/40 mg Ezetimibe + Simvastatin 10/80 mg Simvastatin 80mg Discharge Plan Admission Admit Date/Time: 08/19/23 22:29 Primary Reason for Your Visit: migrane vs TIA Attending Provider: Saleem Ashford Primary Care Provider: Ashli Silva Consulting Providers: Amador Calvillo; Yoel Kerns; Sandra Barker; Tiffany Pearl; Radha Mckee; Michael Martinez; Nicole Pat; Dayne Doyle; Dorian Salazar; Kitty Schafer; Florin Durbin; Kavita Cifuentes; Tima Garzon; Gil Terry; Jose Carrillo; Kelsey Suarez; Izaiah Montiel; Nitza Cameron; Carley Mckenzie; Jt Yeh Discharge Orders/Prescriptions Prescriptions: New aspirin 81 mg Tablet,Chewable 81 mg PO BREAKFAST Qty: 0 0RF Continued acetaminophen 650 mg tablet extended release 650 mg PO Q8H albuterol sulfate 90 mcg/actuation HFA aerosol inhaler 2 puff inhalation Q4H PRN (Reason: shortness of breath or wheezing) cholecalciferol (vitamin D3) 50 mcg (2,000 unit) capsule 50 mcg PO DAILY methocarbamol 500 mg tablet 500 mg PO .QID PRN (Reason: muscle spasm) metformin 500 MG tablet 850 mg PO BIDCM Patient Comments: DIABETES pravastatin 20 MG tablet 20 mg PO QHS Patient Comments: CHOLESTEROL paroxetine HCl [Paxil] 30 mg tablet 40 mg PO QHS Patient Comments: DEPRESSION/ ANXIETY Referrals / Follow Up: Ashli Silva PA [Primary Care Provider] - Within 1 Month Disposition Disposition (needs filled in before D/C Order can be placed): Home, Self Care Charges/Coding Visit Charges Inpatient E&M: 84176 Disch Hosp >30min
[2023-08-21 12:58] LABS: Vitamin B12 288 pg/mL (211-911)
== END 2023-08-20 13:43 | disposition home or self-care (01) ==
LOC: ED 22:51 → PCU 08-20 04:17
PROVIDERS: Admitting Provider Internal Medicine; Emergency Provider Student in an Organized Health Care Education/Training Program; PCP Physician Assistant; Visit Provider Internal Medicine
DX: G43.909 Migraine, unspecified, not intractable, without status migrainosus (principal); E11.22 Type 2 diabetes mellitus with diabetic chronic kidney disease; E11.40 Type 2 diabetes mellitus with diabetic neuropathy, unspecified; N18.30 Chronic kidney disease, stage 3 unspecified; M79.7 Fibromyalgia; E78.2 Mixed hyperlipidemia; R20.2 Paresthesia of skin; R42 Dizziness and giddiness; Z87.820 Personal history of traumatic brain injury; Z79.899 Other long term (current) drug therapy; Z79.84 Long term (current) use of oral hypoglycemic drugs; F17.210 Nicotine dependence, cigarettes, uncomplicated
CPT/HCPCS: 36415; 70450; 70496; 70498; 70551; 80048; 80053; 80061; 82607; 82746; 82962; 83036; 83735; 84100; 84443; 84484; 85025; 85610; 85730; 92610; 93005; 93306; 94762; 96374; 97162; 97166; 97802; 99221; 99285; 99406; J7030; Q9967; G0378

== ENCOUNTER 2023-10-18 14:59 | Emergency (ER) | payer MEDICARE, MEDICAID, SELFPAY ==
[2023-10-18 15:00] VITALS: BP 147/83; PULSE 75; RESP 16; TEMP 36.1; O2SAT 100; BMI 28.5
--- NOTE | 2023-10-18 15:35 | EX.ED.GENINJ ---
HPI History of Present Illness Chief Complaint: Other, Pain/Inj Narrative Narrative: 66-year-old female presenting with chronic neck pain. Patient has past medical history of fibromyalgia, cervical myelopathy. She states that she sees Dr. Thompson and states she inquired whether a neck brace would help. She was wearing a neck brace today for a couple of hours and notes that her neck is more stiff. She states she called Dr. Thompson's office and was told to go to the emergency room. Patient is already been denied an MRI of the cervical spine. She states she has not done physical in a couple of years. Denies any trauma. No paresthesias. She has pain mostly in the left trapezius and left side paraspinal musculature. [facility] Medical History Depression Chronic pain Osteoporosis GERD (gastroesophageal reflux disease) Trigger thumb, right thumb Left ureteral calculus Wears glasses Anxiety Diabetes Arthritis Ambulates with cane CKD (chronic kidney disease), stage III Urinary incontinence High cholesterol Injury of head and neck Dietary restriction Heartburn Chronic cough Smoker Leg cramps History of edema Constipation Hyperlipidemia Fibromyalgia Diabetes Home Medications ?Medication ?Instructions ?Recorded ?Last Taken ?Type metformin 500 mg tablet 850 mg PO BIDCM diabetes 07/31/13 05/30/23 17:00 History pravastatin 20 mg tablet 20 mg PO QHS cholesterol 07/31/13 05/30/23 20:00 History acetaminophen 650 mg 650 mg PO Q8H pain 07/05/23 Unknown History tablet,extended release albuterol sulfate 90 mcg/actuation 2 puff inhalation Q4H PRN 07/05/23 Unknown History aerosol inhaler shortness of breath or wheezing cholecalciferol (vitamin D3) 50 50 mcg PO DAILY vitamin 07/05/23 Unknown History mcg (2,000 unit) capsule methocarbamol 500 mg tablet 500 mg PO .QID PRN muscle spasm 07/05/23 Unknown History paroxetine HCl 30 mg tablet (Paxil) 40 mg PO QHS mental health 07/05/23 Unknown History aspirin 81 mg chewable tablet 81 mg PO BREAKFAST #0 tabs 08/20/23 Unknown Rx Allergy/AdvReac Type Severity Reaction Status Date / Time moxifloxacin HCl (From Allergy Other Verified 10/18/23 15:01 Avelox) Penicillins Allergy Nausea Verified 10/18/23 15:01 cefuroxime (From Ceftin) AdvReac Other Verified 10/18/23 15:01 doxycycline AdvReac Nausea Verified 10/18/23 15:01 prednisone AdvReac Other Verified 10/18/23 15:01 sulfamethoxazole (From AdvReac Vomiting Verified 10/18/23 15:01 Bactrim) trimethoprim (From Bactrim) AdvReac Vomiting Verified 10/18/23 15:01 Surgical History History of removal of retained hardware History of tonsillectomy History of ankle surgery History of bunionectomy of left great toe History of endoscopic sinus surgery History of endoscopic sinus surgery History of lithotripsy History of salpingectomy History of surgery of uterus History of cholecystectomy History of hysterectomy H/O hand surgery Social History household members: none Smoking Status: Current every day smoker tobacco type: cigarettes substance use type: does not use ROS ROS ED Constitutional Constitutional ED: Denies chills, fever(s) or sweats Eyes Eyes: Denies blurry vision or change in vision ENT ENT ED: Denies ear pain or sore throat Cardiovascular Cardiovascular: Denies chest pain, palpitations or racing heartbeat Respiratory/Chest Respiratory/Chest: Denies cough, dyspnea or sputum Gastrointestinal Gastrointestinal: Denies abdominal pain, constipation, diarrhea, nausea or vomiting Genitourinary Genitourinary ED: Denies dysuria, hematuria or urinary frequency Musculoskeletal Musculoskeletal: Reports neck pain; Denies arthralgias or myalgias Integumentary Denies abscess, Abrasions or rash Neurologic Neurologic: Denies headache(s), paresthesias or weakness Psychiatric Psychiatric: Denies anxiety, depression, suicidal ideation or suicidal thoughts Endocrine Endocrinology: Denies polydipsia or polyuria EXAM Physical Exam Const Vital Signs: 10/18/23 15:00 Temperature 96.9 F L Temperature Source Temporal Pulse Rate 75 Respiratory Rate 16 Blood Pressure 147/83 H Blood Pressure Mean 104 Pulse Ox 100 Oxygen Delivery Method Room Air Positive well nourished HEENT atraumatic and trauma Eyes PERRL and EOMs intact bilaterally Resp normal respiratory effort Cardio regular rhythm Back/Spine normal to inspection and no thoracic nor lumbar tenderness Back/Spine Narrative: No midline deformity or step cervical spine. There is left-sided cervical paraspinal musculature tenderness. There is tenderness in the left trapezius. Extremity normal to inspection Neuro oriented x3, CN's II-XII intact bilaterally, moves all extremities, no focal motor deficits and no sensory deficits noted Sensorium / Orientation: alert Motor Exam: strength 5/5 throughout Psych mental status grossly normal Skin no rashes or lesions noted MDM MDM MDM Narrative Medical decision making narrative: Patient presenting with acute on chronic neck pain. She was declined an MRI presumably because she did not do physical therapy yet. She does not have any red flag signs or symptoms on examination. She has left paraspinal muscular tenderness of the cervical spine. She had a recent x-ray a month ago which showed osteopenia. She does not have any red flag signs or symptoms which would warrant an MRI. We discussed this at length. I did give her an oxycodone while she was here. This signal her some relief. I counseled her that this is a chronic issue and she will need to follow-up with Dr. Thompson and her primary care. I recommend she get into physical therapy. She acknowledges understanding and is discharged in stable condition. Impression: 1. Acute on chronic neck pain Lab Data Attestation: I reviewed the patient's lab results. Discharge Plan Triage Chief Complaint: Other, Pain/Inj ED Provider: Don Lemons Dx/Rx/DC Orders Instructions: ED Neck Spasm, No Trauma Prescriptions: No Action acetaminophen 650 mg tablet extended release 650 mg PO Q8H albuterol sulfate 90 mcg/actuation HFA aerosol inhaler 2 puff inhalation Q4H PRN (Reason: shortness of breath or wheezing) cholecalciferol (vitamin D3) 50 mcg (2,000 unit) capsule 50 mcg PO DAILY methocarbamol 500 mg tablet 500 mg PO .QID PRN (Reason: muscle spasm) metformin 500 MG tablet 850 mg PO BIDCM Patient Comments: DIABETES pravastatin 20 MG tablet 20 mg PO QHS Patient Comments: CHOLESTEROL paroxetine HCl [Paxil] 30 mg tablet 40 mg PO QHS Patient Comments: DEPRESSION/ ANXIETY aspirin 81 mg Tablet,Chewable 81 mg PO BREAKFAST Qty: 0 0RF Primary Care Provider: Ashli Silva Referrals: Ashli Silva, PA [Primary Care Provider] - Print Language: [place] Disposition Disposition: Home, Self Care
[2023-10-18] MEDS: oxyCODONE 5 MG Tablet PO (15:55)
[2023-10-18 18:43] VITALS: BP 119/77; PULSE 64; RESP 18; TEMP 36.6; O2SAT 96
== END 2023-10-18 18:43 | disposition home or self-care (01) ==
PROVIDERS: Emergency Provider Student in an Organized Health Care Education/Training Program; PCP Physician Assistant; Visit Provider Student in an Organized Health Care Education/Training Program
DX: M54.2 Cervicalgia (principal); E11.22 Type 2 diabetes mellitus with diabetic chronic kidney disease; N18.30 Chronic kidney disease, stage 3 unspecified; M85.80 Other specified disorders of bone density and structure, unspecified site; G89.29 Other chronic pain; F17.210 Nicotine dependence, cigarettes, uncomplicated; E78.5 Hyperlipidemia, unspecified; K21.9 Gastro-esophageal reflux disease without esophagitis
CPT/HCPCS: 99282

== ENCOUNTER → 2023-11-21 | Outpatient (CLI) | payer MEDICARE, MEDICAID, SELFPAY ==
--- NOTE | 2023-11-21 13:00 | MRI_ITS ---
STUDY: MRI CERVICAL SPINE WITHOUT CONTRAST REASON FOR EXAM: Female, 68 years old. UNSPECIFIED DISEASE OF SPINAL CORD TECHNIQUE: Standardized fat and water weighted pulse sequences were obtained in the sagittal and axial planes. COMPARISON: MR brain August 20, 2023. CT brain August 19, 2023. CTA brain August 20, 2023. FINDINGS: Normal foramen magnum and brainstem-cervical cord junction. Normal craniovertebral junction. Normal anterior atlantoaxial articulation. Normal odontoid process. Normal cervical lordosis. Normal vertebral bodies and posterior osseous elements. C2-3: Normal endplates. Normal disc height, signal and morphology. Normal central canal and intervertebral neural foramina. Moderate Fluid in the facet on the right. C3-4: Normal endplates. Normal disc height, signal and morphology. Normal central canal and narrowed right intervertebral neural foramina. C4-5: Small broad-based Disc marginal osteophyte encroaches upon the ventral cord. Normal disc height, signal and morphology. Normal central canal and severe narrowing right intervertebral neural foramina. Slight retrolisthesis. C5-6: Small broad-based Disc marginal osteophyte encroaches upon the ventral cord. Normal disc height, signal and morphology. Normal central canal and severe narrowing right intervertebral neural foramina. C6-7: Normal endplates. Normal disc height, signal and morphology. Normal central canal and moderate narrowing right intervertebral neural foramina. C7-T1: Normal endplates. Normal disc height, signal and morphology. Normal central canal and intervertebral neural foramina. Bilateral nerve sheath cysts within the neural foramina. Normal cervical cord. Normal visualized soft tissue structures. MRI/Spine Cervical (Routine) IMPRESSION: Disc marginal osteophytes encroaching upon the ventral cord as above. Multilevel bilateral neural foraminal narrowing as above. Electronically Signed: Carlitos Tristan MD at 16:16 EDT ,
== END | disposition home or self-care (01) ==
LOC: MRI 12:59
PROVIDERS: PCP Physician Assistant; Referring Provider Orthopaedic Surgery Orthopaedic Surgery of the Spine; Visit Provider Orthopaedic Surgery Orthopaedic Surgery of the Spine
DX: G95.9 Disease of spinal cord, unspecified (principal)
CPT/HCPCS: 72141

== ENCOUNTER 2024-01-08 08:28 | Emergency (ER) | payer MEDICARE, MEDICAID, SELFPAY ==
[2024-01-08 08:29] VITALS: BP 119/72; PULSE 65; RESP 20; TEMP 36.4; O2SAT 99; BMI 29.5
--- NOTE | 2024-01-08 09:02 | RAD_ITS ---
HISTORY: chest pain. TECHNIQUE: XR Chest 1 View. COMPARISON: 10/13/2021. FINDINGS: CARDIOMEDIASTINAL BORDERS: Cardiac silhouette within normal limits in size. Mediastinal contour also unchanged with mild tortuosity of the aorta. LUNGS: Radiographically clear. PLEURA: No pleural effusion or pneumothorax seen. OSSEOUS STRUCTURES: Moderate scoliosis again noted. RAD/Chest 1 View (Portable) IMPRESSION: No acute cardiopulmonary process identified. Electronically Signed: Lou Hayes MD at 10:06 EDT ,
--- NOTE | 2024-01-08 09:02 | EKG12_ITS ---
Test Reason : CP Blood Pressure : / mmHG Vent. Rate : 061 BPM Atrial Rate : 061 BPM P-R Int : 154 ms QRS Dur : 088 ms QT Int : 422 ms P-R-T Axes : 016 016 059 degrees QTc Int : 424 ms Normal sinus rhythm Low voltage QRS Borderline ECG Confirmed by Tyree Dejesus ([id number]), science editor SEMAJ RIOS ([id number]) on 01/09/2024 9:21:17 AM Referred By: JUDY/ALANNAH Confirmed By:Tyree Dejesus
--- NOTE | 2024-01-08 09:06 | ED.VIS.CHEST ---
HPI History of Present Illness Chief Complaint: Chest Pain Informant: patient Narrative Narrative: 68-year-old diabetic female presenting to the emergency room with epigastric pain. Patient states that she woke around 730 had a pressure-like sensation in her epigastrium right upper quadrant and into her back. She states that still present. She was worried that she was having a heart attack. Patient notes that she had an echocardiogram earlier this year that appeared normal. Since being here in the department and waiting for evaluation the patient is wondering if this is gas. She denies any belching or reflux. She denies any flatus. She has not had a bowel movement yet this morning. She states that she went to bed last night feeling fine. Patient reports prior appendectomy and cholecystectomy. She denies any history of pancreatitis. She denies any history of gastric ulcers or gastritis. [facility] Medical History Depression Chronic pain Osteoporosis GERD (gastroesophageal reflux disease) Trigger thumb, right thumb Left ureteral calculus Wears glasses Anxiety Diabetes Arthritis Ambulates with cane CKD (chronic kidney disease), stage III Urinary incontinence High cholesterol Injury of head and neck Dietary restriction Heartburn Chronic cough Smoker Leg cramps History of edema Constipation Hyperlipidemia Fibromyalgia Diabetes Home Medications ?Medication ?Instructions ?Recorded ?Last Taken ?Type metformin 500 mg tablet 850 mg PO BIDCM diabetes 07/31/13 05/30/23 17:00 History pravastatin 20 mg tablet 20 mg PO QHS cholesterol 07/31/13 05/30/23 20:00 History acetaminophen 650 mg 650 mg PO Q8H pain 07/05/23 Unknown History tablet,extended release albuterol sulfate 90 mcg/actuation 2 puff inhalation Q4H PRN 07/05/23 Unknown History aerosol inhaler shortness of breath or wheezing cholecalciferol (vitamin D3) 50 50 mcg PO DAILY vitamin 07/05/23 Unknown History mcg (2,000 unit) capsule methocarbamol 500 mg tablet 500 mg PO .QID PRN muscle spasm 07/05/23 Unknown History paroxetine HCl 30 mg tablet (Paxil) 40 mg PO QHS mental health 07/05/23 Unknown History aspirin 81 mg chewable tablet 81 mg PO BREAKFAST #0 tabs 08/20/23 Unknown Rx azelastine 137 mcg (0.1 %) nasal intranasal 11/23/23 Unknown History spray Allergy/AdvReac Type Severity Reaction Status Date / Time moxifloxacin HCl (From Allergy Other Verified 01/08/24 08:33 Avelox) Penicillins Allergy Nausea Verified 01/08/24 08:33 cefuroxime (From Ceftin) AdvReac Other Verified 01/08/24 08:33 doxycycline AdvReac Nausea Verified 01/08/24 08:33 prednisone AdvReac Other Verified 01/08/24 08:33 sulfamethoxazole (From AdvReac Vomiting Verified 01/08/24 08:33 Bactrim) trimethoprim (From Bactrim) AdvReac Vomiting Verified 01/08/24 08:33 Surgical History History of removal of retained hardware History of tonsillectomy History of ankle surgery History of bunionectomy of left great toe History of endoscopic sinus surgery History of endoscopic sinus surgery History of lithotripsy History of salpingectomy History of surgery of uterus History of cholecystectomy History of hysterectomy H/O hand surgery Social History household members: none Smoking Status: Current every day smoker tobacco type: cigarettes substance use type: does not use ROS ROS ED Constitutional Constitutional ED: Denies chills, fever(s) or weight loss Eyes Eyes: Denies change in vision or diplopia ENT ENT ED: Denies ear pain, rhinorrhea or sore throat Cardiovascular Cardiovascular: Denies chest pain, orthopnea, palpitations or racing heartbeat Respiratory/Chest Respiratory/Chest: Denies cough, dyspnea or orthopnea Gastrointestinal Gastrointestinal: Reports abdominal pain; Denies diarrhea, nausea or vomiting Genitourinary Genitourinary ED: Denies dysuria, hematuria or urinary frequency Musculoskeletal Musculoskeletal: Reports back pain; Denies arthralgias or myalgias Integumentary Denies abscess or rash Neurologic Neurologic: Denies headache(s) or weakness Psychiatric Psychiatric: Denies anxiety, depression, suicidal ideation or suicidal thoughts Endocrine Endocrinology: Denies polydipsia, polyphagia or polyuria Allergic/Immunologic Allergic/Immunologic ED: Denies mouth swelling, tongue swelling or urticaria EXAM Physical Exam Const Vital Signs: 01/08/24 08:29 01/08/24 08:31 01/08/24 09:30 Temperature 97.6 F L Temperature Source Temporal Pulse Rate 65 58 L Respiratory Rate 20 H 18 Respiratory Effort Normal Non-Labored Respiratory Pattern Normal Blood Pressure 119/72 128/74 H Blood Pressure Mean 87 92 Pulse Ox 99 97 Oxygen Delivery Method Room Air Room Air 01/08/24 10:21 01/08/24 11:02 Temperature Temperature Source Pulse Rate 59 L 64 Respiratory Rate 14 19 H Respiratory Effort Respiratory Pattern Blood Pressure 119/84 H 164/86 H Blood Pressure Mean 95 112 Pulse Ox 97 96 Oxygen Delivery Method Room Air Positive well nourished and well developed General Appearance ED: well developed HEENT Reports normocephalic, head/scalp atraumatic and moist mucous membranes Eyes PERRL and EOMs intact bilaterally Neck no lymphadenopathy, supple and no JVD Resp normal respiratory effort and clear to auscultation bilaterally Cardio regular rate, regular rhythm and no murmurs GI normal to inspection, nondistended, normoactive bowel sounds and non-tender Palpation: soft Back/Spine no CVA tenderness and normal ROM Extremity normal to inspection General Extremety ED: Negative for edema General Extremity: Negative for edema Neuro oriented x3 and CN's II-XII intact bilaterally Sensorium / Orientation: alert Motor Exam: strength 5/5 throughout Psych mental status grossly normal Mood & Affect: Negative for depressed or tearful Skin no rashes or lesions noted and no wounds MDM MDM MDM Narrative Medical decision making narrative: Differential diagnosis would include but not limited to choledocholithiasis pancreatitis gastritis gastric ulcer acute coronary syndrome aortic dissection aortic aneurysm esophagitis Basic blood work was obtained shows a white count of 6 hemoglobin of 12 normal LFTs lipase slightly elevated at 79 BUN of 21 creatinine 1.[address] of the abdomen pelvis was obtained. This was read by radiology reviewed by myself. I do not see any obvious intra-abdominal inflammatory conditions. No evidence of choledocholithiasis. Patient is sleeping on my repeat examination. Her EKG is in normal sinus rhythm with no concerning ST segments. Her troponin is normal at 5. She is able to eat some cookies without difficulty. I think this is most likely going to be gastric in nature. Would recommend some Pepto or Mylanta today. Follow-up with primary care if not improving return if worsening History & Record Review Discussion w/independent historian: Patient Lab Data Attestation: I reviewed the patient's lab results. Labs: Laboratory Results - last 24 hr 01/08/24 09:30 WBC 6.0 RBC 4.13 L Hgb 12.1 Hct 39.2 MCV 94.9 MCH 29.3 MCHC 30.9 L RDW Std Deviation 50.3 H RDW Coeff of [place] 14.4 Plt Count 191 MPV 11.3 Immature Gran % (Auto) 0.200 Neut % (Auto) 47.9 Lymph % (Auto) 39.6 [place] % (Auto) 7.8 Eos % (Auto) 3.5 Baso % (Auto) 1.0 Absolute Neuts (auto) 2.9 Absolute Lymphs (auto) 2.39 Nucleated RBC % 0 Sodium 142 Potassium 3.8 Chloride 111 H Carbon Dioxide 26.0 Anion Gap 5 BUN 21 H Creatinine 1.11 H Estim Creat Clear Calc 45.89 Est GFR (MDRD) Af Amer 63 Est GFR (MDRD) Non-Af 52 L BUN/Creatinine Ratio 18.9 Glucose 132 H Calcium 8.8 Total Bilirubin 0.50 Direct Bilirubin 0.11 AST 14 L ALT 23 Alkaline Phosphatase 63 Troponin I High Sens 5 Total Protein 6.7 Albumin 3.4 Globulin 3.3 Lipase 79 H Radiography Diagnostic Testing: Clinical Impression(s) from Imaging Studies Chest X-Ray 01/08/24 09:02 IMPRESSION: No acute cardiopulmonary process identified. Electronically Signed: Lou Hayes MD at 10:06 EDT , Abdomen/Pelvis CT 01/08/24 10:10 IMPRESSION: Unremarkable pancreas. Hepatic steatosis. Cholecystectomy. Moderate stool in the colon. Small hiatal hernia. Electronically Signed: Lou Hayes MD at 11:06 EDT , EKG Initial EKG: Attestation: I personally reviewed and interpreted this EKG as follows: Comments: Normal sinus rhythm ventricular rate of 61 bpm Discharge Plan Triage Chief Complaint: Chest Pain ED Provider: [place],Sukhjinder Dx/Rx/DC Orders Clinical Impression: Abdominal pain, Chest pain Instructions: Abdominal Pain, ED Gastritis (Adult) Prescriptions: No Action acetaminophen 650 mg tablet extended release 650 mg PO Q8H albuterol sulfate 90 mcg/actuation HFA aerosol inhaler 2 puff inhalation Q4H PRN (Reason: shortness of breath or wheezing) cholecalciferol (vitamin D3) 50 mcg (2,000 unit) capsule 50 mcg PO DAILY methocarbamol 500 mg tablet 500 mg PO .QID PRN (Reason: muscle spasm) azelastine 137 mcg (0.1 %) spray,non-aerosol intranasal Patient Comments: [NO ORIGINAL SIG] metformin 500 MG tablet 850 mg PO BIDCM Patient Comments: DIABETES pravastatin 20 MG tablet 20 mg PO QHS Patient Comments: CHOLESTEROL paroxetine HCl [Paxil] 30 mg tablet 40 mg PO QHS Patient Comments: DEPRESSION/ ANXIETY aspirin 81 mg Tablet,Chewable 81 mg PO BREAKFAST Qty: 0 0RF Primary Care Provider: Bella Ellis Referrals: Ashli Silva PA [Non-Staff] - 3-5 Days if not improving Print Language: Estonian Disposition Disposition: Home, Self Care
[2024-01-08 09:30] VITALS: BP 128/74; PULSE 58; RESP 18; O2SAT 97
[2024-01-08 09:41] LABS: Absolute Lymphocyte Count 2.39 X10^3/uL (0.83-4.51); Absolute Neutrophil Count 2.9 X10^3/uL (2.0-7.7); Basophil# 0.06 X10^3/uL; Eosinophil# 0.21 X10^3/uL; Eosinophils% 3.5 % (0-5); Hematocrit 39.2 % (37-47); Hemoglobin 12.1 g/dL (12.0-15.0); Lymphocyte # 2.39 X10^3/ul (0.83-4.51); Lymphocyte % 39.6 % (19-41); Mean Corp Hgb Conc 30.9 g/dL (32-36); Mean Corpuscular Hgb 29.3 pg (27.0-32.0); Mean Corpuscular Volume 94.9 fL (81-99); Mean Platelet Vol. 11.3 fl (6.2-12.0); Monocyte# 0.47 X10^3/uL; Monocyte% 7.8 % (0-10); NRBC Flagged by Analyzer 0 % (0-5); Neutrophil # 2.89 X10^3/uL (2.7-7.7); Neutrophil % 47.9 % (47-70); Platelet Count 191 K/mm3 (150-450); RBC Distribution Width CV 14.4 % (11.6-14.6); RBC Distribution Width SD 50.3 fl (35.1-43.9); Red Blood Count 4.13 M/mm3 (4.2-5.4)
[2024-01-08 10:00] LABS: AST(SGOT) 14 U/L (15-37); Alanine Aminotransfer ALT/SGPT 23 U/L (13-56); Albumin, Serum 3.4 g/dL (3.2-5.0); Alkaline Phosphatase 63 U/L (45-117); Anion Gap 5 (5-15); BUN 21 mg/dL (7-18); BUN/Creat Ratio 18.9 RATIO (10-20); Bilirubin, Direct 0.11 mg/dL (0.00-0.30); Calcium,Total 8.8 mg/dL (8.5-10.1); Chloride 111 mmol/L (98-107); Creatinine, Serum 1.11 mg/dL (0.55-1.02); EST Glomerular Filtration Rate 52 mL/min (>60); Est Glom Filt Rate - Afr Amer 63 mL/min (>60); Estimated Creatinine Clearance 45.89 ml/min; Globulin 3.3 g/dL (2.2-4.2); Glucose 132 mg/dL (74-106); Lipase 79 U/L (13-75); Potassium 3.8 mmol/L (3.5-5.1); Protein, Total 6.7 g/dL (6.4-8.2); Sodium Level 142 mmol/L (136-145); Troponin-I HS 5 pg/mL (3.0-54.0)
--- NOTE | 2024-01-08 10:10 | CT_ITS ---
HISTORY: abdominal pain/pancreatitis. TECHNIQUE: Helically acquired images were obtained of the abdomen and pelvis after the intravenous administration of 100 mL Isovue 300. A radiation dose optimization technique was used for this scan. 414 images. COMPARISON: XR same day. FINDINGS: LOWER CHEST: Lung bases clear. BOWEL: Very mild hiatal hernia. Bowel nondilated. Artifact from surgical clip at the cecum with nonvisualization of the appendix. Moderate stool in the colon. PERITONEUM: No significant ascites. LIVER: No enhancing mass. Fatty infiltration. GALLBLADDER/BILIARY TREE: Surgical clip in the gallbladder fossa. SPLEEN/PANCREAS: Homogeneous and nonenlarged. ADRENAL GLANDS: No nodules. KIDNEYS: No hydronephrosis. Subcentimeter bilateral cysts; follow-up not indicated. VESSELS: No abdominal aortic aneurysm. Mild atherosclerosis. PELVIC ORGANS: Absent uterus. BONES: Degenerative change and moderate scoliosis. CT/Abdomen/Pelvis W IV Cont ONLY IMPRESSION: Unremarkable pancreas. Hepatic steatosis. Cholecystectomy. Moderate stool in the colon. Small hiatal hernia. Electronically Signed: Lou Hayes MD at 11:06 EDT ,
[2024-01-08 10:21] VITALS: BP 119/84; PULSE 59; RESP 14; O2SAT 97
[2024-01-08 11:02] VITALS: BP 164/86; PULSE 64; RESP 19; O2SAT 96
[2024-01-08 11:39] VITALS: BP 128/78; PULSE 81; RESP 16; TEMP 36; O2SAT 97
== END 2024-01-08 11:39 | disposition home or self-care (01) ==
PROVIDERS: Emergency Provider Emergency Medicine; PCP Clinical Nurse Specialist Adult Health; Visit Provider Emergency Medicine
DX: R07.9 Chest pain, unspecified (principal); E11.22 Type 2 diabetes mellitus with diabetic chronic kidney disease; N18.30 Chronic kidney disease, stage 3 unspecified; R10.9 Unspecified abdominal pain; E78.5 Hyperlipidemia, unspecified; F17.210 Nicotine dependence, cigarettes, uncomplicated; Z90.710 Acquired absence of both cervix and uterus; E78.00 Pure hypercholesterolemia, unspecified; K21.9 Gastro-esophageal reflux disease without esophagitis; Z79.82 Long term (current) use of aspirin; Z90.49 Acquired absence of other specified parts of digestive tract; M54.9 Dorsalgia, unspecified
CPT/HCPCS: 71045; 74177; 80048; 80076; 83690; 84484; 85025; 93005; 99284; Q9967; A4216

== ENCOUNTER 2024-07-01 14:15 | Emergency (ER) | payer MEDICARE, MEDICAID, SELFPAY ==
[2024-07-01 14:17] VITALS: BP 147/76; PULSE 67; RESP 14; TEMP 36.6; O2SAT 97; BMI 28.4
--- NOTE | 2024-07-01 15:12 | EDS_ITS ---
HPI History of Present Illness Chief Complaint: Other, Pain/Inj PFSH PFSH Medical History Osteomyelitis of ankle Closed fracture of right distal radius History of multiple concussions Depression Chronic pain Osteoporosis GERD (gastroesophageal reflux disease) Trigger thumb, right thumb Left ureteral calculus Wears glasses Anxiety Diabetes Arthritis Ambulates with cane CKD (chronic kidney disease), stage III Urinary incontinence Injury of head and neck Dietary restriction Chronic cough Smoker Leg cramps History of edema Constipation Hyperlipidemia Fibromyalgia Home Medications ?Medication ?Instructions ?Recorded ?Last Taken ?Type metformin 500 mg tablet 850 mg PO BIDCM diabetes 11/0605/30/23 17:00 History pravastatin 20 mg tablet 20 mg PO QHS cholesterol 11/0605/30/23 20:00 History acetaminophen 650 mg 650 mg PO Q8H pain 07/05/23 Unknown History tablet,extended release albuterol sulfate 90 mcg/actuation 2 puff inhalation Q 4H PRN 07/05/23 Unknown History aerosol inhaler shortness of breath or wheez ing cholecalciferol (vitamin D3) 50 50 mcg PO DAILY vitami n 07/05/23 Unknown History mcg (2,000 unit) capsule methocarbamol 500 mg tablet 500 mg PO .QID PRN muscle spasm 07/05/23 Unknown History paroxetine HCl 30 mg tablet (Paxil) 40 mg PO QHS [facility] 07/05/23 Unknown History aspirin 81 mg chewable tablet 81 mg PO BREAKFAST #0 ta bs 08/20/23 Unknown Rx azelastine 137 mcg (0.1 %) nasal intranasal 11/23/23 U nknown History spray Allergy/AdvReac Type Severity Reaction Status Date / Time moxifloxacin HCl (From Allergy Other Verified 07/01/24 14:19 Avelox) Penicillins Allergy Nausea Verified 07/01/24 14:19 cefuroxime (From Ceftin) AdvReac Other Verified 07/01/24 14:19 doxycycline AdvReac Nausea Verified 07/01/24 14:19 prednisone AdvReac Other Verified 07/01/24 14:19 sulfamethoxazole (From AdvReac Vomiting Verified 07/01/24 14:19 Bactrim) trimethoprim (From Bactrim) AdvReac Vomiting Verified 07/01/24 14:19 Surgical History History of removal of retained hardware History of tonsillectomy History of ankle surgery History of bunionectomy of left great toe History of endoscopic sinus surgery History of endoscopic sinus surgery History of lithotripsy History of salpingectomy History of surgery of uterus History of cholecystectomy History of hysterectomy H/O hand surgery Social History household members: none Smoking Status: Current every day smoker tobacco type: cigarettes substance use type: does not use EXAM Physical Exam Const Vital Signs: 07/01/24 14:17 07/01/24 15:04 07/01/24 16:16 Temperature 97.9 F Temperature Source Oral Pulse Rate 67 64 Respiratory Rate 14 16 Respiratory Pattern Normal Blood Pressure 147/76 H 134/78 H Blood Pressure Mean 99 96 Pulse Ox 97 98 Oxygen Delivery Method Room Air Room Air MDM MDM MDM Narrative Medical decision making narrative: HISTORY OF PRESENT ILLNESS: Chief complaint: Neck pain 68-year-old female history of chronic neck pain, cervicalgia, cervical myelopathy with cervical radiculopathy, spondylolisthesis in the cervical region, hyperlipidemia, fibromyalgia, type 2 diabetes, hyperlipidemia presents with acute on chronic neck pain. States she usually has neck pain but today it is more intense. She notes she is having more pain with movement of the neck. She also notes she has swollen glands in her neck. She further states she denies any falls. No loss of sensation in upper extremities. REVIEW OF SYSTEMS: Pertinent positives: Neck pain Pertinent negatives: Sore throat PHYSICAL EXAM: Nursing triage notes reviewed, Vital signs reviewed Constitutional: please see mdm HENT: MMM Eyes: Pupils equal round and reactive to light, Extraocular muscles intact Neck: No stridor, no JVD, full neck ROM, no midline step-offs or deformities, no bruits, no palpable masses or abscess Lungs: Clear to auscultation, No wheezing or rales. No increased work of breathing, no conversational dyspnea, no accessory muscle use, no nasal flaring. No respiratory distress noted Heart: Regular rate and rhythm, No murmurs, No rubs and No gallops, 2+ distal pulses (radial, femoral, posterior tibial) in all extremities Abdomen: Soft, there is no tenderness, rigidity, rebound or guarding, no obvious peritoneal signs, no palpable pulsatile abdominal masses, no auscultated abdominal bruit : No CVAT Extremities: No edema Neuro: Intact 5/5 strength with ok sign (median), intact finger abduction (ulnar) intact wrist extension (radial n). Intact sensation in the radial, ulnar, and median nerve distributions. Skin: No rash or lesions noted MEDICAL DECISION MAKING: Chief Complaint: please see HPI External records reviewed: Reviewed prior imaging studies: Reviewed x-ray of the cervical spine from April 2024 which shows no acute osseous abnormalities, it showed degenerative changes from C5-C7 Factors affecting care: As per HPI Social determinants of health: former smoker History obtained from others: none Consults: none [facility] Narrative: The patient was initially hemodynamically stable, afebrile and nontoxic- appearing. Exam grossly unremarkable I considered the following differential diagnosis: Cervical spine fracture, carotid artery dissection, pharyngitis, Lemierre syndrome, otitis media, RPA, REGULATORY COMPLIANCE ENGINEER The patient's history and clinical exam were not consistent with Lemierre's syndrome, otitis media, RPA, REGULATORY COMPLIANCE ENGINEER coronary dissection or pharyngitis. I obtained a CT scan of cervical spine to rule out any new bony abnormalities. Initially treated the patient with lidocaine patches, IM Norflex, IM Toradol ALL IMAGES (IF OBTAINED) HAVE BEEN PERSONALLY REVIEWED AND INTERPRETED BY MYSELF. CT scan of the neck showed no evidence of obvious bony abnormality. Likely acute on chronic neck pain secondary to underlying conditions as listed above. Offered steroids patient said it makes her wired. Offered Norflex and lidocaine patches. Instructed on pain management follow-up. The patient and/or family, caregivers express understanding. The patient and/or family, caregivers agrees with the plan. Shared decision making: I will have a discussion with the patient and or visitors regarding risk/benefits of further testing or admission. They will be made aware of of the risk/benefits inherent in this decision they will be given the opportunity to voice understanding. Total critical care time today provided was at least 0 minutes. This excludes separately billable procedures. Critical care time (if documented) is secondary to the patient having high probability of clinically significant/life threatening deterioration in the patient's condition which required my urgent intervention. Impression: 1. Acute on chronic neck pain Dispo: Discharge home This note was generated with Edsby dictation software. It may contain incorrect words, spelling, and punctuation that were not noted in review of the chart prior to signing. Radiography Diagnostic Testing: Clinical Impression(s) from Imaging Studies Cervical Spine CT 07/01/24 16:04 IMPRESSION: No acute fracture or traumatic malalignment. Degenerative changes, most prominent homogeneous at C4-C5. [facility] Dis[facility] Plan Triage Chief Complaint: Other, Pain/Inj ED Provider: Shahbaz Vincent Dx/Rx/DC Orders Instructions: ED Chronic Pain Prescriptions: No Action acetaminophen 650 mg tablet extended release 650 mg PO Q8H albuterol sulfate 90 mcg/actuation HFA aerosol inhaler 2 puff inhalation Q4H PRN (Reason: shortness of breath or wheezing) cholecalciferol (vitamin D3) 50 mcg (2,000 unit) capsule 50 mcg PO DAILY methocarbamol 500 mg tablet 500 mg PO .QID PRN (Reason: muscle spasm) azelastine 137 mcg (0.1 %) spray,non-aerosol intranasal Patient Comments: [NO ORIGINAL SIG] metformin 500 MG tablet 850 mg PO BIDCM Patient Comments: DIABETES pravastatin 20 MG tablet 20 mg PO QHS Patient Comments: CHOLESTEROL paroxetine HCl [Paxil] 30 mg tablet 40 mg PO QHS Patient Comments: DEPRESSION/ ANXIETY aspirin 81 mg Tablet,Chewable 81 mg PO BREAKFAST Qty: 0 0RF Primary Care Provider: Bella Ellis Referrals: Rodrigo Johnson MD [[facility] Staff - Active Staff] - Activity Restrictions/Additional Instructions: Thank you for trusting us with your care today! Your CT scan was reassuring. No evidence of obvious bony abnormality. Please take Tylenol (2 pills, 650 mg), ibuprofen (2 pills, 400 mg) every 6 hours as needed for pain and fever control. Please go to local pharmacy or drugstore obtain Salonpas lidocaine patches. Please continue to take already prescribed tramadol, methocarbamol as prescribed by pain management. Please return to the emergency department if your symptoms change or worsen. Please follow with your pain management for further outpatient evaluation and management. Print Language: Sinhala Disposition Disposition: Home, Self Care Discharge Date/Time: 07/01/24 17:01
[2024-07-01] MEDS: Lidocaine 5% Patch 1 PATCH TOPICAL (15:40)
[2024-07-01] MEDS: Ketorolac 15 MG/ML Vial IM (15:41)
[2024-07-01] MEDS: Orphenadrine 60 MG/2 ML Ampul IM (15:44)
--- NOTE | 2024-07-01 16:04 | CT_ITS ---
PROCEDURE: SPINE CERVICAL WITHOUT CONTRAS 07/01/2024 REASON FOR EXAM: NECK PAIN TECHNIQUE: Cervical spine CT without contrast. Coronal and Sagittal reconstruction series were provided. One or more dose reduction techniques were used (e.g., Automated exposure control, adjustment of the mA and/or kV according to patient size, use of iterative reconstruction technique COMPARISON: MRI cervical spine 11/21/2023 and cervical spine radiograph 05/06/2024 FINDINGS: Alignment: Straightening of the cervical lordosis. Mild retrolisthesis of C4 on C5. Atlantoaxial interval is maintained. Mild left rotary subluxation, likely positional. Vertebrae: Vertebral body heights are maintained. Mild multilevel loss of disc spaces most prominent at C4-C5 and C5-C6. No acute fracture or traumatic malalignment. Multilevel degenerative changes most prominent at C4-C5 with up to mild canal stenosis and moderate neural foraminal narrowing. Soft Tissues: No focal soft tissue abnormality. Other: Imaged lung apices are clear. CT/Spine Cervical without Contras IMPRESSION: No acute fracture or traumatic malalignment. Degenerative changes, most prominent homogeneous at C4-C5. Reading Location: [facility]
[2024-07-01 16:16] VITALS: BP 134/78; PULSE 64; RESP 16; O2SAT 98
== END 2024-07-01 17:01 | disposition home or self-care (01) ==
PROVIDERS: Emergency Provider Emergency Medicine; PCP Clinical Nurse Specialist Adult Health; Visit Provider Emergency Medicine
DX: M54.2 Cervicalgia (principal); E11.22 Type 2 diabetes mellitus with diabetic chronic kidney disease; N18.30 Chronic kidney disease, stage 3 unspecified; M79.7 Fibromyalgia; E78.5 Hyperlipidemia, unspecified; F17.210 Nicotine dependence, cigarettes, uncomplicated; Z90.710 Acquired absence of both cervix and uterus; G89.29 Other chronic pain; Z90.49 Acquired absence of other specified parts of digestive tract
CPT/HCPCS: 72125; 96372; 99282

== ENCOUNTER → 2025-01-26 | Outpatient (CLI) | payer MEDICARE, MEDICAID, SELFPAY ==
--- NOTE | 2025-01-26 07:50 | RAD_ITS ---
RAD/Cerv Spine 2 or 3 Views
--- NOTE | 2025-01-26 07:50 | RAD_ITS ---
RAD/Lumbar Spine 2 or 3 Views
[2025-01-26 09:16] LABS: Hematocrit 40.6 % (37-47); Hemoglobin 12.9 g/dL (12.0-15.0); Immature Granulocytes Count 0.020 X10^3/uL (0.0-0.0); Mean Corp Hgb Conc 31.8 g/dL (32-36); Mean Corpuscular Volume 94.2 fL (81-99); Mean Platelet Vol. 10.7 fl (6.2-12.0); NRBC Flagged by Analyzer 0 % (0-5); Platelet Count 258 K/mm3 (150-450); RBC Distribution Width CV 13.9 % (11.6-14.6); RBC Distribution Width SD 48.6 fl (35.1-43.9); Red Blood Count 4.31 M/mm3 (4.2-5.4); White Blood Count 7.7 K/mm3 (4.4-11.0)
[2025-01-26 10:24] LABS: AST(SGOT) 18 U/L (<=31); Alanine Aminotransfer ALT/SGPT 15 U/L (<=34); Albumin, Serum 4.4 g/dL (3.4-4.8); Alkaline Phosphatase 58 U/L (35-104); Anion Gap 11 (5-15); BUN 27 mg/dL (4-19); BUN/Creat Ratio 26.7 RATIO (10-20); Calcium,Total 9.8 mg/dL (7.6-11.0); Carbon Dioxide 23.0 mmol/L (21.0-32.0); Chloride 106 mmol/L (98-108); Cholesterol 210 mg/dL (<=200); Globulin 3.0 g/dL (2.2-4.2); Glucose 127 mg/dL (70-99); Low Density Lipoprotein Calc. 116 mg/dL; Potassium 4.6 mmol/L (3.3-5.1); Triglycerides 188 mg/dL; Very Low Density Lipoprotein 38 mg/dL (5-40); Vitamin B12 275 pg/mL (180-914); Vitamin D,25 Hydroxy 38.3 ng/mL (30-100); cholesterol:hdl ratio screen 3.42
== END | disposition home or self-care (01) ==
PROVIDERS: PCP Internal Medicine; Referring Provider Internal Medicine; Visit Provider Internal Medicine
DX: M45.2 Ankylosing spondylitis of cervical region (principal); E11.65 Type 2 diabetes mellitus with hyperglycemia; M54.50 Low back pain, unspecified; G89.29 Other chronic pain; E53.8 Deficiency of other specified B group vitamins; E55.9 Vitamin D deficiency, unspecified
CPT/HCPCS: 36415; 72040; 72100; 80053; 80061; 82306; 82607; 85025

== ENCOUNTER → 2025-02-11 | Outpatient (CLI) | payer MEDICARE, MEDICAID, SELFPAY | END | disposition home or self-care (01) | PROVIDERS: PCP Internal Medicine; Referring Provider Internal Medicine; Visit Provider Internal Medicine | DX: J44.9 Chronic obstructive pulmonary disease, unspecified (principal) | CPT/HCPCS: 94060; 94726; 94729 ==

== ENCOUNTER → 2025-02-16 | Outpatient (CLI) | payer MEDICARE, MEDICAID, SELFPAY ==
--- NOTE | 2025-02-16 09:38 | MRI_ITS ---
PROCEDURE: SPINE LUMBAR (ROUTINE) 02/16/2025 REASON FOR EXAM: PAIN WORSENING X2 MONTHS, STENOSIS, DDD, SCOLIOSIS TECHNIQUE: Procedure Code: MRISPL Modality: MR Procedure: SPINE LUMBAR (ROUTINE) COMPARISON: MRI lumbar spine 12/09/2020 FINDINGS: For the purposes of this report, the most caudal rectangular vertebral body will be designated L5. The next most caudal trapezoidal shaped vertebral body will be designated S1. The intervening disc at the lumbosacral angle is designated L5-S1. Lumbar levoscoliosis. The normal lumbar lordosis is maintained. The lumbar vertebral bodies are normal in height. L3-L4 left spondylolisthesis. The lumbar bone marrow signal is within normal limits. Multilevel disc desiccation and intervertebral disc space height loss. There is no evidence of signal abnormality in the imaged distal spinal cord. The conus medullaris terminates at the level of L2. T12-L1: No significant spinal canal stenosis or neural foraminal narrowing. L1-L2: No significant spinal canal stenosis or neural foraminal narrowing. L2-L3: Disc bulge, bilateral facet joint arthrosis, and ligamentum flavum hypertrophy contribute to mild spinal canal stenosis. Moderate right neural foraminal narrowing. Intact left neural foramen. L3-L4: Disc bulge, bilateral facet joint arthrosis, and ligamentum flavum hypertrophy contribute to mild spinal canal stenosis. [id number] right neural foraminal narrowing. Intact left neural foramen. L4-L5: Disc bulge, bilateral facet joint arthrosis, and ligamentum flavum hypertrophy contribute to mild spinal canal stenosis and left subarticular zone narrowing. [id number] left neural foraminal stenosis predominantly secondary to disc bulge and facet arthrosis. No significant right neural foraminal narrowing. These changes are grossly stable when compared to MRI of the lumbar spine 12/09/2020. L5-S1: No significant spinal canal stenosis or neural foraminal narrowing. Fatty atrophy of the posterior paraspinal muscles. MRI/Spine Lumbar (Routine) IMPRESSION: Multilevel lumbar spondylosis without high-grade spinal canal stenosis. At L4- L5, [id number] left neural foraminal stenosis. These findings are grossly stable when compared to MRI of the lumbar spine 12/09/2020. Additional details as discussed above. Reading Location: [id number]
== END | disposition home or self-care (01) ==
LOC: OPMRI 09:28
PROVIDERS: PCP Internal Medicine; Referring Provider Student in an Organized Health Care Education/Training Program; Visit Provider Student in an Organized Health Care Education/Training Program
DX: M48.062 Spinal stenosis, lumbar region with neurogenic claudication (principal); M51.362 Other intervertebral disc degeneration, lumbar region with discogenic back pain and lower extremity pain
CPT/HCPCS: 72148

== ENCOUNTER → 2025-02-26 | Outpatient (CLI) | payer MEDICARE, MEDICAID, SELFPAY ==
--- NOTE | 2025-02-26 14:00 | BD_ITS ---
PROCEDURE: DEXA BONE DENSITY STUDY 02/26/2025 REASON FOR EXAM: SCREENING F, age 69 y/o . Postmenopausal. TECHNIQUE: Procedure Code: BDDBD Modality: DX Procedure: DEXA BONE DENSITY STUDY COMPARISON: Reviewed FINDINGS: BMD and T-SCORES Lumbar spine: 0.882 g/cm2, T-score -0.9 Levels: L1 and L2 Left femoral neck: 0.516 g/cm2, T-score -3.0 Right femoral neck: 0.507 g/cm2, T-score -3.1 The World Health Organization has defined the following categories based on bone density: Normal bone density: T-score equal to or greater than -1.0 Osteopenia: T-score between -1.0 and -2.5 Osteoporosis: T-score equal to or less than -2.5 FRAX (or Comparable) Fracture Risk Assessment: 10 Year Probability of Fracture: Major Osteoporotic Fracture: 31% Hip Fracture: 14% (Note: FRAX is not to be reported in setting of normal range bone density, osteoporosis on DEXA, known history of osteoporosis, prior osteoporotic hip or vertebral fracture, or for any patient undergoing pharmacological treatment for bone loss.) The National Osteoporosis Foundation (NOF) recommends pharmacological treatment for patients with a FRAX 10-year risk of 3% or higher for a hip fracture, or 20% or higher for a major osteoporotic fracture, to prevent osteoporosis and reduce fracture risk. BD/Dexa Bone Density Study IMPRESSION: OSTEOPOROSIS. Recommend follow-up as clinically warranted. Reading Location: [id number]
--- NOTE | 2025-02-26 14:30 | BI_ITS ---
EXAM: SCRN MAMM (CAD)W/DONAL BILAT DATE: 02/26/2025 CLINICAL HISTORY: F, Age 69 y/o , SCREENING TECHNIQUE: Procedure Code: [id number] Modality: MG Procedure: SCRN MAMM (CAD)W/DONAL BILAT COMPARISON: Prior exam(s) were compared FINDINGS: TISSUE DENSITY: There are scattered areas of fibroglandular density. Bilateral Breast Mammographic Findings: No significant masses, calcifications or other abnormalities are identified. BI/SCRN MAMM (CAD)W/DONAL BILAT IMPRESSION: No mammographic evidence of malignancy. OVERALL FINAL ASSESSMENT BI-RADS 1: NEGATIVE. RECOMMENDATION: Routine annual follow-up in 1 Year Additional Recommendation none A letter with findings and recommendations will be mailed to the patient. Reading Location: [id number]
== END | disposition home or self-care (01) ==
LOC: OPBD 13:22
PROVIDERS: PCP Internal Medicine; Referring Provider Internal Medicine; Visit Provider Internal Medicine
DX: Z12.31 Encounter for screening mammogram for malignant neoplasm of breast (principal); J44.9 Chronic obstructive pulmonary disease, unspecified; Z78.0 Asymptomatic menopausal state
CPT/HCPCS: 77063; 77067; 77080